=== PATIENT | male | born 1940 | race Caucasian/White ===

== ENCOUNTER 2017-11-15 15:14 | Outpatient (RCR) | payer MEDICARE, BC, SELFPAY ==
[2017-11-15 17:32] LABS: International Normalized Ratio 2.8; Prothrombin Time (Protime)PT. 28.2 SECONDS (11.7-14.9)
== END 2017-11-15 16:00 | disposition home or self-care (01) ==
LOC: MTLAB 15:14
PROVIDERS: Family Provider Family Medicine; PCP Family Medicine; Visit Provider Internal Medicine Cardiovascular Disease
DX: I48.0 Paroxysmal atrial fibrillation (principal)
CPT/HCPCS: 36415; 85610

== ENCOUNTER 2017-12-16 10:35 | Outpatient (RCR) | payer MEDICARE, BC, SELFPAY ==
[2017-12-16 12:18] LABS: International Normalized Ratio 2.3; Prothrombin Time (Protime)PT. 25.3 SECONDS (11.7-14.9)
== END 2017-12-16 11:00 | disposition home or self-care (01) ==
LOC: MTLAB 10:35
PROVIDERS: Family Provider Family Medicine; PCP Family Medicine; Visit Provider Internal Medicine Cardiovascular Disease
DX: I48.0 Paroxysmal atrial fibrillation (principal)
CPT/HCPCS: 36415; 85610

== ENCOUNTER 2018-01-10 12:49 | Outpatient (RCR) | payer MEDICARE, BC, SELFPAY ==
[2018-01-10 14:49] LABS: International Normalized Ratio 2.8; Prothrombin Time (Protime)PT. 29.9 SECONDS (11.7-14.9)
== END 2018-01-10 13:00 | disposition home or self-care (01) ==
LOC: MTLAB 12:49
PROVIDERS: Family Provider Family Medicine; PCP Family Medicine; Visit Provider Internal Medicine Cardiovascular Disease
DX: I48.0 Paroxysmal atrial fibrillation (principal)
CPT/HCPCS: 36415; 85610

== ENCOUNTER → 2018-01-23 11:33 | Outpatient (CLI) | payer MEDICARE, BC, SELFPAY ==
[2018-01-23 14:22] LABS: Amylase 48 U/L (25-115); Lipase 147 U/L (73-393)
== END ==
PROVIDERS: Family Provider Family Medicine; PCP Family Medicine; Visit Provider Internal Medicine Endocrinology, Diabetes & Metabolism
DX: R68.81 Early satiety (principal)
CPT/HCPCS: 36415; 82150; 83690

== ENCOUNTER 2018-02-08 10:01 | Outpatient (RCR) | payer MEDICARE, BC, SELFPAY ==
[2018-02-08 10:48] LABS: International Normalized Ratio 2.3; Prothrombin Time (Protime)PT. 25.6 SECONDS (11.7-14.9)
== END 2018-02-08 10:30 | disposition home or self-care (01) ==
LOC: MTLAB 10:01
PROVIDERS: Family Provider Family Medicine; PCP Family Medicine; Visit Provider Internal Medicine Cardiovascular Disease
DX: I48.0 Paroxysmal atrial fibrillation (principal)
CPT/HCPCS: 36415; 85610

== ENCOUNTER 2018-03-13 09:04 | Outpatient (RCR) | payer MEDICARE, BC, SELFPAY ==
[2018-03-13 10:58] LABS: International Normalized Ratio 2.5; Prothrombin Time (Protime)PT. 26.7 SECONDS (11.7-14.9)
== END 2018-03-13 15:58 | disposition home or self-care (01) ==
LOC: MTLAB 09:04
PROVIDERS: Family Provider Family Medicine; PCP Family Medicine; Visit Provider Internal Medicine Cardiovascular Disease
DX: I48.0 Paroxysmal atrial fibrillation (principal)
CPT/HCPCS: 36415; 85610

== ENCOUNTER 2018-04-16 07:02 | Emergency (ER) | payer MEDICARE, BC, SELFPAY ==
[2018-04-16 07:04] VITALS: BP 135/81; PULSE 70; RESP 16; TEMP 36.7; O2SAT 98; BMI 29.0
[2018-04-16 07:26] VITALS: BP 140/69; PULSE 71; RESP 14; O2SAT 97
[2018-04-16] MEDS: 0.9% Normal Saline 1,000 ML 1000 ML IV (07:29)
[2018-04-16 07:48] LABS: Absolute Lymphocyte Count 1.33 X10^3/ul (0.83-4.51); Absolute Neutrophil Count 5.1 X10^3/uL (2.0-7.7); Basophil# 0.06 X10^3/uL; Basophil% 0.8 % (0-1); Eosinophil# 0.22 X10^3/uL; Eosinophils% 2.8 % (0-5); Hematocrit 45.4 % (40-54); Lymphocyte # 1.33 X10^3/ul (4.0); Mean Corpuscular Hgb 31.5 pg (27.0-32.0); Mean Corpuscular Volume 95.4 fL (80-94); Mean Platelet Vol. 11.6 fl (6.2-12.0); Monocyte# 1.06 X10^3/uL; Monocyte% 13.6 % (0-10); Neutrophil # 5.13 X10^3/uL (2.7-7.7); Neutrophil % 65.7 % (47-70); Platelet Count 198 K/mm3 (150-450); RBC Distribution Width CV 13.6 % (11.6-14.6); RBC Distribution Width SD 47.2 fl (35.1-43.9); Red Blood Count 4.76 M/mm3 (4.6-6.2); White Blood Count 7.8 K/mm3 (4.4-11.0)
--- NOTE | 2018-04-16 07:51 | ED.DCSUM_ITS ---
- ER Visit Summary Date of Service: 04/16/18 Chief Complaint: Diarrhea and hypoglycemia History of Present Illness: The patient is a 77 M presenting with diarrhea. The patient has had 5 days worth of loose watery diarrhea. This all seemed to start after he drank oral contrast on Saturday for a surveillance CT scan. Patient reports that since then he has been having a multitude of episodes of loose watery diarrhea per day. Patient reports that every time he eats or drinks something and goes right through him. Patient denies that there is any sort of mucus or blood associated with this diarrhea. He does endorse that he has had some chills but no objective fevers. No abdominal pain or nausea or vomiting. Patient has not had any recent travel, antibiotic use, admissions to the hospital. Patient woke up today and was noted to have blood sugar in the 50s because he has been eating and he still been taking his insulin. This prompted him to come to the emergency department. Physical Examination: Vital signs within normal limits. Well-nourished male no acute distress. No conjunctival pallor or scleral icterus, mildly dry mucous membranes. Neck was supple. Heart was regular rate and rhythm 2 out of 6 systolic murmur. Lungs sounds are clear ICD is placed in the chest. Abdomen soft nontender nondistended normal bowel sounds no masses. Peripheral pulses 2 + and symmetric in the upper and lower extremities bilaterally. Skin was normal color with no rash. Test Results: Patient presented with a diarrheal illness over the course last 5 days. He was given 1 L normal saline and will emergency department. I did check labs on the patient, he does not have significant evidence of electrolyte abnormality or renal insufficiency. I did attempt to obtain a stool study on the patient's, but he was unable to provide this in the emergency department. At this point I believe the patient can safely be discharged, he does not really seem to have any sort of risk factors for infectious diarrhea and I do not believe that he requires antibiotic treatment for empiric treatment for C. difficile. He will follow-up with his primary care physician Disposition: Discharge Impression: 1. Enteritis This note was generated with [employer] dictation software. It may contain incorrect words, spelling, and punctuation that were not noted in review of the chart prior to signing ED Disposition - Plan for ED Patient: Disposition: Home or Assisted Living Chief Complaint: Hypoglycemia Diagnosis: Enteritis Instructions: ED Diabetes Hypoglycemia Insulin React, ED Diarhhea Viral Ch Prescriptions: Diphenoxylate/Atrop [Lomotil] 1 tab GT 4X/DAY PRN PRN #12 tab PRN Reason: Diarrhea Referrals: Angel Lang MD [Primary Care Provider] - 3-5 Days Additional Instructions: As long as you are having decreased oral intake, decrease your insulin to 20u in the AM/PM to prevent hypoglycemia. Check your sugars often throughout the day
[2018-04-16 07:55] LABS: POSITIVE COUNT NO; POSITIVE DIFFERENTIAL NO; POSITIVE MORPHOLOGY NO
[2018-04-16 08:01] LABS: Phosphorus 4.1 mg/dL (2.5-4.9)
[2018-04-16 08:05] LABS: ALB/GLOB Ratio 1.1 RATIO (0.9-2.4); AST(SGOT) 20 U/L (15-37); Alanine Aminotransfer ALT/SGPT 23 U/L (16-61); Albumin, Serum 3.9 g/dL (3.2-5.0); Alkaline Phosphatase 44 U/L (45-117); Anion Gap 10 (5-15); BUN 21 mg/dL (7-18); BUN/Creat Ratio 16.7 RATIO (10-20); Calcium,Total 8.7 mg/dL (8.5-10.1); Chloride 106 mmol/L (98-107); Creatinine, Serum 1.26 mg/dL (0.70-1.30); EST Glomerular Filtration Rate 59 mL/min (>60); Est Glom Filt Rate - Afr Amer 71 mL/min (>60); Estimated Creatinine Clearance 49.09 ml/min; Globulin 3.4 g/dL (2.2-4.2); Glucose 68 mg/dL (74-106); Magnesium 2.4 mg/dL (1.6-2.6); Potassium 3.4 mmol/L (3.5-5.1); Protein, Total 7.3 g/dL (6.4-8.2); Sodium Level 143 mmol/L (136-145)
[2018-04-16] MEDS: Diphenoxylate/Atrop 1 Tablet PO (08:09)
[2018-04-16 08:11] VITALS: BP 132/78; PULSE 70; RESP 12; O2SAT 95
[2018-04-16 08:52] VITALS: BP 135/72; PULSE 82; RESP 14; O2SAT 95
== END 2018-04-16 09:08 | disposition home or self-care (01) ==
PROVIDERS: Emergency Provider Emergency Medicine; Family Provider Family Medicine; PCP Family Medicine
DX: K52.9 Noninfective gastroenteritis and colitis, unspecified (principal); E11.649 Type 2 diabetes mellitus with hypoglycemia without coma; I25.2 Old myocardial infarction; I50.9 Heart failure, unspecified; N18.9 Chronic kidney disease, unspecified; E03.9 Hypothyroidism, unspecified; K21.9 Gastro-esophageal reflux disease without esophagitis; I48.91 Unspecified atrial fibrillation; Z95.810 Presence of automatic (implantable) cardiac defibrillator; Z79.82 Long term (current) use of aspirin; Z79.4 Long term (current) use of insulin; Z79.899 Other long term (current) drug therapy
CPT/HCPCS: 80053; 83735; 84100; 85025; 96360; 99283; J7030

== ENCOUNTER 2018-04-26 07:07 | Outpatient (RCR) | payer MEDICARE, BC, SELFPAY ==
[2018-04-18 13:01] LABS: International Normalized Ratio 4.9; Prothrombin Time (Protime)PT. 46.4 SECONDS (11.7-14.9)
[2018-04-21 09:18] LABS: Prothrombin Time (Protime)PT. 31.3 SECONDS (11.7-14.9)
[2018-04-26 08:37] LABS: International Normalized Ratio 3.2; Prothrombin Time (Protime)PT. 32.6 SECONDS (11.7-14.9)
[2018-04-26 08:53] LABS: AST(SGOT) 19 U/L (15-37); Alanine Aminotransfer ALT/SGPT 22 U/L (16-61); Albumin, Serum 3.6 g/dL (3.2-5.0); Alkaline Phosphatase 44 U/L (45-117); Bilirubin, Direct 0.15 mg/dL (0.00-0.30); Cholesterol 124 mg/dL (200); Globulin 3.8 g/dL (2.2-4.2); High Density Lipoprotein 27 mg/dL; Protein, Total 7.4 g/dL (6.4-8.2); Triglycerides 220 mg/dL; Very Low Density Lipoprotein 44 mg/dL (5-40)
== END 2018-04-26 09:00 | disposition home or self-care (01) ==
LOC: LAB 07:07
PROVIDERS: Family Provider Family Medicine; PCP Family Medicine; Visit Provider Internal Medicine Cardiovascular Disease
DX: I48.0 Paroxysmal atrial fibrillation (principal); I25.2 Old myocardial infarction; E78.5 Hyperlipidemia, unspecified
CPT/HCPCS: 36415; 80061; 80076; 85610

== ENCOUNTER 2018-05-29 09:44 | Outpatient (RCR) | payer MEDICARE, BC, SELFPAY ==
[2018-05-29 12:21] LABS: International Normalized Ratio 1.9; Prothrombin Time (Protime)PT. 22.1 SECONDS (11.7-14.9)
== END 2018-05-29 11:00 | disposition home or self-care (01) ==
LOC: MTLAB 09:44
PROVIDERS: Family Provider Family Medicine; PCP Family Medicine; Visit Provider Internal Medicine Cardiovascular Disease
DX: I48.0 Paroxysmal atrial fibrillation (principal); Z79.01 Long term (current) use of anticoagulants
CPT/HCPCS: 36415; 85610

== ENCOUNTER 2018-07-12 10:36 | Outpatient (RCR) | payer MEDICARE, BC, SELFPAY ==
[2018-06-20 12:45] LABS: International Normalized Ratio 1.9; Prothrombin Time (Protime)PT. 21.5 SECONDS (11.7-14.9)
[2018-07-12 11:33] LABS: International Normalized Ratio 1.7; Prothrombin Time (Protime)PT. 20.2 SECONDS (11.7-14.9)
== END 2018-07-12 12:00 | disposition home or self-care (01) ==
LOC: LAB 10:36
PROVIDERS: Family Provider Family Medicine; PCP Family Medicine; Visit Provider Internal Medicine Cardiovascular Disease
DX: I48.0 Paroxysmal atrial fibrillation (principal); Z79.01 Long term (current) use of anticoagulants
CPT/HCPCS: 36415; 85610

== ENCOUNTER 2018-08-09 10:39 | Outpatient (RCR) | payer MEDICARE, BC, SELFPAY ==
[2018-08-09 11:51] LABS: Prothrombin Time (Protime)PT. 22.4 SECONDS (11.7-14.9)
== END 2018-08-09 12:00 | disposition home or self-care (01) ==
LOC: LAB 10:39
PROVIDERS: Family Provider Family Medicine; PCP Family Medicine; Referring Provider Internal Medicine Cardiovascular Disease; Visit Provider Internal Medicine Cardiovascular Disease
DX: I48.0 Paroxysmal atrial fibrillation (principal); Z79.01 Long term (current) use of anticoagulants
CPT/HCPCS: 36415; 85610

== ENCOUNTER 2018-08-29 14:29 | Outpatient (RCR) | payer MEDICARE, BC, SELFPAY ==
[2018-08-29 17:00] LABS: International Normalized Ratio 1.8; Prothrombin Time (Protime)PT. 20.8 SECONDS (11.7-14.9)
== END 2018-08-29 15:00 | disposition home or self-care (01) ==
LOC: MTLAB 14:29
PROVIDERS: Family Provider Family Medicine; PCP Family Medicine; Referring Provider Internal Medicine Cardiovascular Disease; Visit Provider Internal Medicine Cardiovascular Disease
DX: I48.0 Paroxysmal atrial fibrillation (principal); Z79.01 Long term (current) use of anticoagulants
CPT/HCPCS: 36415; 85610

== ENCOUNTER 2018-09-20 11:32 | Outpatient (RCR) | payer MEDICARE, BC, SELFPAY ==
[2018-04-21 10:31] VITALS: BMI 29.1
[2018-09-20 12:03] LABS: International Normalized Ratio 1.9; Prothrombin Time (Protime)PT. 21.6 SECONDS (11.7-14.9)
== END 2018-09-20 12:00 | disposition home or self-care (01) ==
LOC: LAB 11:32
PROVIDERS: Family Provider Family Medicine; PCP Family Medicine; Referring Provider Internal Medicine Cardiovascular Disease; Visit Provider Internal Medicine Cardiovascular Disease
DX: I48.0 Paroxysmal atrial fibrillation (principal); Z79.01 Long term (current) use of anticoagulants
CPT/HCPCS: 36415; 85610

== ENCOUNTER → 2018-10-18 08:37 | Outpatient (CLI) | payer MEDICARE, BC, SELFPAY ==
[2018-04-21 10:31] VITALS: BMI 29.1
[2018-10-18 10:05] LABS: International Normalized Ratio 2.5; Prothrombin Time (Protime)PT. 26.9 SECONDS (11.7-14.9)
[2018-10-18 10:17] LABS: Hemoglobin A1c 9.3 % (4.2-6.3)
[2018-10-18 10:23] LABS: Anion Gap 9 (5-15); BUN 26 mg/dL (7-18); BUN/Creat Ratio 20.5 RATIO (10-20); Calcium,Total 9.1 mg/dL (8.5-10.1); Chloride 106 mmol/L (98-107); Creatinine, Serum 1.27 mg/dL (0.70-1.30); EST Glomerular Filtration Rate 58 mL/min (>60); Est Glom Filt Rate - Afr Amer 70 mL/min (>60); Glucose 211 mg/dL (74-106); Sodium Level 141 mmol/L (136-145); T4 Free Direct 1.23 ng/dL (0.76-1.46); Thyroid Stim Hormone (TSH) 2.38 uIU/mL (0.358-3.74)
== END ==
PROVIDERS: Family Provider Family Medicine; PCP Family Medicine; Referring Provider Internal Medicine Endocrinology, Diabetes & Metabolism; Visit Provider Internal Medicine Endocrinology, Diabetes & Metabolism
DX: E11.65 Type 2 diabetes mellitus with hyperglycemia (principal); E03.9 Hypothyroidism, unspecified
CPT/HCPCS: 36415; 80048; 83036; 84439; 84443; 85610

== ENCOUNTER 2018-10-18 08:42 | Outpatient (RCR) | payer MEDICARE, BC, SELFPAY ==
[2018-04-21 10:31] VITALS: BMI 29.1
== END 2018-10-18 10:00 | disposition home or self-care (01) ==
LOC: LAB 08:42
PROVIDERS: Family Provider Family Medicine; PCP Family Medicine; Referring Provider Internal Medicine Cardiovascular Disease; Visit Provider Internal Medicine Cardiovascular Disease
DX: I48.0 Paroxysmal atrial fibrillation (principal); Z79.01 Long term (current) use of anticoagulants

== ENCOUNTER → 2018-10-25 09:01 | Outpatient (CLI) | payer MEDICARE, BC, SELFPAY ==
[2018-04-21 10:31] VITALS: BMI 29.1
[2018-10-25 10:21] LABS: AST(SGOT) 17 U/L (15-37); Alanine Aminotransfer ALT/SGPT 22 U/L (16-61); Albumin, Serum 3.9 g/dL (3.2-5.0); Alkaline Phosphatase 48 U/L (45-117); Bilirubin, Direct 0.19 mg/dL (0.00-0.30); Cholesterol 137 mg/dL (200); Globulin 3.6 g/dL (2.2-4.2); High Density Lipoprotein 26 mg/dL; Protein, Total 7.5 g/dL (6.4-8.2); Triglycerides 266 mg/dL; Very Low Density Lipoprotein 53 mg/dL (5-40)
== END ==
PROVIDERS: Family Provider Family Medicine; PCP Family Medicine; Referring Provider Nurse Practitioner Family; Visit Provider Nurse Practitioner Family
DX: E78.5 Hyperlipidemia, unspecified (principal)
CPT/HCPCS: 36415; 80061; 80076

== ENCOUNTER 2018-11-19 12:37 | Outpatient (RCR) | payer MEDICARE, BC, SELFPAY ==
[2018-10-28 08:54] VITALS: BMI 29.3
[2018-11-19 13:33] LABS: International Normalized Ratio 2.8
== END 2018-12-11 13:00 | disposition home or self-care (01) ==
LOC: LAB 12:37
PROVIDERS: Family Provider Family Medicine; PCP Family Medicine; Referring Provider Internal Medicine Cardiovascular Disease; Visit Provider Internal Medicine Cardiovascular Disease
DX: I48.0 Paroxysmal atrial fibrillation (principal); Z79.01 Long term (current) use of anticoagulants
CPT/HCPCS: 36415; 85610

== ENCOUNTER → 2018-12-01 07:07 | Outpatient (CLI) | payer MEDICARE, BC, SELFPAY ==
[2018-10-28 08:54] VITALS: BMI 29.3
--- NOTE | 2018-12-01 15:35 | STRESSREP ---
Stress Test Report Pharmacologic myocardial perfusion stress test. 78-year-old man with a history of coronary artery disease, coronary artery bypass surgery, ICD placement, cardiomyopathy. Medications: Aspirin, digoxin, Lasix, Neurontin, carvedilol, lisinopril. Stress protocol: Resting EKG demonstrates atrial fibrillation with a rate of 72 bpm with a left bundle branch block pattern or pacing activity present. 0.4 mg of regadenoson was infused per usual protocol followed by rapid intravenous saline flush injection continuous EKG monitoring was performed. The maximum heart rate attained was 81 bpm which was 57% of maximum predicted heart rate the maximum workload was 1 metabolic equivalent. The patient maintained atrial fibrillation flutter throughout the recording. There were no ST or T wave changes noted other than the paced rhythm present. Myocardial perfusion protocol. 11.0 mCi of technetium 99 sestamibi was injected at rest. 0.4 mg of regadenoson was infused per usual protocol. At peak infusion 32.9 mCi of technetium 99m sestamibi was injected stress images were obtained stress and rest images were reconstructed and compared in the short axis vertical long horizontal long axis. Gated images were also obtained next Perfusion SPECT analysis: Review of the stress images demonstrated that it dated cardiac silhouette size. There is an extensive defect noted involving the anterior wall, apex and inferolateral wall. This is present on the stress and resting images to a similar extent suggesting extensive anterolateral apical and inferolateral previous infarct. The RV also appears to be prominent. No obvious ischemia is noted. Gated SPECT analysis: The gated ejection fraction is noted to be 19% with apical dyskinesis noted. Conclusion: Ischemic cardiomyopathy. Previous extensive anterior and apical and inferolateral infarct. No ischemia noted RV prominence noted
== END ==
PROVIDERS: Family Provider Family Medicine; PCP Family Medicine; Referring Provider Nurse Practitioner Family; Visit Provider Nurse Practitioner Family
DX: I25.10 Atherosclerotic heart disease of native coronary artery without angina pectoris (principal); I25.5 Ischemic cardiomyopathy; Z95.1 Presence of aortocoronary bypass graft; I48.0 Paroxysmal atrial fibrillation; E78.5 Hyperlipidemia, unspecified
CPT/HCPCS: 78452; 93017; A9500; A4216; J2785

== ENCOUNTER 2019-01-16 13:24 | Outpatient (RCR) | payer MEDICARE, BC, SELFPAY ==
[2018-10-28 08:54] VITALS: BMI 29.3
[2019-01-16 14:09] LABS: International Normalized Ratio 2.5; Prothrombin Time (Protime)PT. 27.2 SECONDS (11.7-14.9)
== END 2019-02-10 16:00 | disposition home or self-care (01) ==
LOC: LAB 13:24
PROVIDERS: Family Provider Family Medicine; PCP Family Medicine; Referring Provider Internal Medicine Cardiovascular Disease; Visit Provider Internal Medicine Cardiovascular Disease
DX: I48.0 Paroxysmal atrial fibrillation (principal); Z79.01 Long term (current) use of anticoagulants
CPT/HCPCS: 36415; 85610

== ENCOUNTER 2019-02-23 13:24 | Outpatient (RCR) | payer MEDICARE, BC, SELFPAY ==
[2018-10-28 08:54] VITALS: BMI 29.3
[2019-02-23 15:20] LABS: International Normalized Ratio 2.6; Prothrombin Time (Protime)PT. 27.6 SECONDS (11.7-14.9)
== END 2019-02-23 15:00 | disposition home or self-care (01) ==
LOC: LAB 13:24
PROVIDERS: Family Provider Family Medicine; PCP Family Medicine; Referring Provider Internal Medicine Cardiovascular Disease; Visit Provider Internal Medicine Cardiovascular Disease
DX: I48.0 Paroxysmal atrial fibrillation (principal); Z79.01 Long term (current) use of anticoagulants
CPT/HCPCS: 36415; 85610

== ENCOUNTER 2019-03-26 09:41 | Outpatient (RCR) | payer MEDICARE, BC, SELFPAY ==
[2018-10-28 08:54] VITALS: BMI 29.3
[2019-03-26 12:06] LABS: International Normalized Ratio 2.4
== END 2019-03-26 10:00 | disposition home or self-care (01) ==
LOC: MTLAB 09:41
PROVIDERS: Family Provider Family Medicine; PCP Family Medicine; Referring Provider Internal Medicine Cardiovascular Disease; Visit Provider Internal Medicine Cardiovascular Disease
DX: I48.0 Paroxysmal atrial fibrillation (principal); Z79.01 Long term (current) use of anticoagulants
CPT/HCPCS: 36415; 85610

== ENCOUNTER 2019-05-08 15:38 | Outpatient (RCR) | payer MEDICARE, BC, SELFPAY ==
[2018-10-28 08:54] VITALS: BMI 29.3
[2019-05-08 15:23] VITALS: BMI 29.3
[2019-05-08 16:45] LABS: International Normalized Ratio 2.7; Prothrombin Time (Protime)PT. 28.6 SECONDS (11.7-14.9)
== END 2019-05-08 16:00 | disposition home or self-care (01) ==
LOC: MTLAB 15:38
PROVIDERS: Family Provider Family Medicine; PCP Family Medicine; Referring Provider Internal Medicine Cardiovascular Disease; Visit Provider Internal Medicine Cardiovascular Disease
DX: I48.0 Paroxysmal atrial fibrillation (principal); Z79.01 Long term (current) use of anticoagulants
CPT/HCPCS: 36415; 85610

== ENCOUNTER → 2019-05-27 | Outpatient (CLI) | payer MEDICARE, BC, SELFPAY ==
[2019-05-08 15:23] VITALS: BMI 29.3
--- NOTE | 2019-05-27 07:44 | ECHOCS_ITS ---
Reason For Study: CHF Procedure This was a 2D Doppler, Color Flow transthoracic echocardiogram. The study was technically difficult. Contrast injection was performed. Exam performed in department. Left Ventricle Normal LV size. D shaped septum in systole and diastole. Moderate concentric left ventricular hypertrophy. Moderate segmental systolic dysfunction (see wall motion). The estimated ejection fraction is 35 %. There is evidence of diastolic dysfunction. Lateral-Basal: Hypokinetic. Mid- Anterior : Hypokinetic. Mid-Lateral : Hypokinetic. Mid-Posterior: Hypokinetic. Mid-Inferior: Hypokinetic. Mid-inferoseptal : Hypokinetic. Mid-anteroseptal : Akinetic. Anterior Peyton : Not visualized. Inferior Peyton : Akinetic. Lateral Peyton : Akinetic. Septal Peyton : Akinetic. Right Ventricle Normal RV size. ICD or pacer leads identified within the right ventricle. Normal systolic function. Atria The left atrium is severely enlarged. The right atrium is mildly enlarged. ICD or pacer leads identified within the right atrium. No doppler evidence for ASD. Mitral Valve There is mild mitral annular calcification. Normal mitral valve. Trivial mitral valve insufficiency. Tricuspid Valve Normal tricuspid valve. Mild to moderate (1-2+) tricuspid valve insufficiency. Right ventricular systolic pressure estimated to be 31 mmHg. Aortic Valve Trisinus/trileaflet aortic valve. Mild focal aortic valve calcification. Pulmonic Valve The pulmonic valve is not well visualized. Trivial pulmonic valve insufficiency. Great Vessels Normal sized aortic root. Pericardium/Pleural No pericardial effusion. Medication 22 gauge I.V. with prn adaptor inserted into right arm. Diluted definity 3ml given slow IV push to enhance endocardial definition. MMode/2D Measurements & Calculations LVIDd: 5.4 cm IVSd: 1.6 cm LVOT diam: 2.0 cm LVIDs: 4.3 cm LVPWd: 1.8 cm FS: 19.2 % LVOT area: 3.1 cm2 Ao root diam: 3.6 cm LAV(MOD-bp): 77.2 ml LA A4 area: 30.1 cm2 LA dimension: 5.0 cm LAV(MOD-bp) Indexed: 37.5 ml/m2 LAV(MOD-sp2): 50.4 ml LAV(MOD-sp4): 109.0 ml Doppler Measurements & Calculations MV E max angel: 95.5 cm/sec Lat Peak E' Angel: 6.2 cm/sec Med Peak E' Angel: 4.2 cm/sec E/E' lat: 15.4 E/E' med: 22.8 MV V2 max: 92.5 cm/sec MV P1/2t max angel: 90.5 cm/sec Ao V2 max: 114.3 cm/sec MV max P.4 mmHg MV P1/2t: 119.7 msec Ao max P.2 mmHg MV V2 mean: 52.8 cm/sec MV dec slope: 221.6 cm/sec2 DORA(V,D): 2.0 cm2 MV mean P.3 mmHg MVA(P1/2t): 1.8 cm2 MV V2 VTI: 25.7 cm LV V1 max: 73.3 cm/sec PA V2 max: 74.4 cm/sec TR max angel: 266.6 cm/sec LV V1 max P.2 mmHg TR max P.4 mmHg Interpretation Summary The study was technically difficult. Contrast injection was performed. Moderate segmental systolic dysfunction (see wall motion). The estimated ejection fraction is 35 %. D shaped septum in systole and diastole. Moderate concentric left ventricular hypertrophy. The left atrium is severely enlarged. The right atrium is mildly enlarged. There is mild mitral annular calcification. Trivial mitral valve insufficiency. Mild to moderate (1-2+) tricuspid valve insufficiency. Mild focal aortic valve calcification. Trivial pulmonic valve insufficiency. Right ventricular systolic pressure estimated to be 31 mmHg. There is evidence of diastolic dysfunction. ICD or pacer leads identified within the right atrium ICD or pacer leads identified within the right ventricle. Ordering Physician: Juan Villafuerte Referring Physician: Angel Lang Performed By: Ezra Monaco RCS
== END | disposition home or self-care (01) ==
LOC: CVS 07:42
PROVIDERS: Family Provider Family Medicine; PCP Family Medicine; Referring Provider Nurse Practitioner Family; Visit Provider Nurse Practitioner Family
DX: I25.10 Atherosclerotic heart disease of native coronary artery without angina pectoris (principal); I25.5 Ischemic cardiomyopathy; Z95.1 Presence of aortocoronary bypass graft; I48.0 Paroxysmal atrial fibrillation
CPT/HCPCS: 93306; Q9957; A4216; C8929

== ENCOUNTER 2019-07-17 10:54 | Outpatient (RCR) | payer MEDICARE, BC, SELFPAY | END 2019-07-17 18:00 | disposition home or self-care (01) | LOC: MTLAB 10:54 | PROVIDERS: Family Provider Family Medicine; PCP Family Medicine; Referring Provider Internal Medicine Cardiovascular Disease; Visit Provider Internal Medicine Cardiovascular Disease | DX: I48.0 Paroxysmal atrial fibrillation (principal); Z79.01 Long term (current) use of anticoagulants ==

== ENCOUNTER 2019-11-04 15:19 | Outpatient (RCR) | payer MEDICARE, BC, SELFPAY ==
[2019-11-04 14:22] VITALS: BMI 31.0
[2019-11-04 16:54] LABS: International Normalized Ratio 3.1; Prothrombin Time (Protime)PT. 31.9 SECONDS (11.7-14.9)
== END 2019-11-04 18:00 | disposition home or self-care (01) ==
LOC: MTLAB 15:19
PROVIDERS: Family Provider Family Medicine; PCP Family Medicine; Referring Provider Internal Medicine Cardiovascular Disease; Visit Provider Internal Medicine Cardiovascular Disease
DX: I48.0 Paroxysmal atrial fibrillation (principal); Z79.01 Long term (current) use of anticoagulants
CPT/HCPCS: 36415; 85610

== ENCOUNTER 2019-11-16 06:52 | Emergency (ER) | payer MEDICARE, BC, SELFPAY ==
[2019-11-16] VITALS (9 sets, daily range): BP systolic 100–140; BP diastolic 76–100; PULSE 20–145; RESP 18–92; TEMP 36.1; O2SAT 2–97; BMI 31.4
--- NOTE | 2019-11-16 06:58 | RAD_ITS ---
HISTORY: CHEST TIGHTNESS, SHORTNESS OF BREATH, DIAPHORETIC ALL YESTERDAY, SYMPTOMS BETTER TODAY EXAMINATION/TECHNIQUE: XR Chest 1 View: Portable COMPARISON: 04/16/2013 FINDINGS: Cardiac telemetry leads in place. Normal heart size. Bibasilar chronic appearing mild scarring. No acute infiltrate. No pleural effusion or overt vascular congestion. Atherosclerotic thoracic aorta. No pneumothorax. Left subclavian AICD pacemaker with electrode tips in region of the right atrium and right ventricle. Previous median sternotomy. RAD/Chest 1 View (Portable) IMPRESSION: 1. No definite acute disease or significant change. 2. Bibasilar mild scarring. 3. Postsurgical changes, as above. at 0808 Reported and signed by: Jhony Mcduffie MD Electronically Signed: Jhony Mcduffie, at 8:07 EST Tel , Service support ,
--- NOTE | 2019-11-16 06:58 | EKG12_ITS ---
Test Reason : CP Blood Pressure : / mmHG Vent. Rate : 113 BPM Atrial Rate : 141 BPM P-R Int : 128 ms QRS Dur : 178 ms QT Int : 324 ms P-R-T Axes : 000 270 101 degrees QTc Int : 444 ms Suspect arm lead reversal, interpretation assumes no reversal Wide complex tachycardia with subsequent ventricular-paced complexes Right bundle branch block pattern Abnormal ECG Confirmed by BLANCA DUNCAN, DELMA ([id number]), assignment editor DEEDEE KRAMER ([id number]) on 11/18/2019 8:55:50 AM Referred By: CANDACE Confirmed By:DELMA RIOS MD
--- NOTE | 2019-11-16 07:08 | ED.VIS.GEN ---
History of Present Illness Chief Complaint: Chest Pain Informant: Patient, Significant Other Onset: Today Context: Sudden Onset Timing: Continuous Quality: Tightness Location: Mid chest Current Severity: Mild Maximum Severity: Moderate Worsened by: Nothing Relieved by: Nothing Associated Symptoms: Dyspnea, dyspnea and nausea Narrative: Patient is an 79-year-old male with multiple medical problems who presents with chest tightness that started at 0615 while getting ready for work. He became diaphoretic and was noted to be short of breath. He did report nausea. He still has tightness in his chest. I was asked to see patient immediately since he appeared to be in V. tach. There is a history of atrial fibrillation. He is on Coumadin. He does have a pacemaker and defibrillator according to . He denies black or maroon stool. He denies cough. He denies orthopnea or PND. He denies fever or chills. His local wrapping clerk is Dr. Juan Manuel Wilkinson. - Past Medical History (1) Atrioventricular block Status: Acute (2) History of myocardial infarction Status: Acute (3) Premature ventricular contraction Status: Acute (4) Aortocoronary bypass status Status: Chronic Comment: CABG x3 - KO to diag, SVG to RCA and SVG to RCA 06/18/1996 (5) 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 Status: Chronic (6) CKD (chronic kidney disease), stage III Status: Chronic (7) Chronic systolic congestive heart failure Status: Chronic (8) HLD (hyperlipidemia) Status: Chronic (9) History of DVT (deep vein thrombosis) Status: Chronic Comment: Upper Extremity (10) History of atrial fibrillation Status: Chronic (11) Ischemic cardiomyopathy Status: Chronic (12) detention (current) use of anticoagulants Status: Chronic (13) Type 2 diabetes mellitus Status: Chronic Past Medical History - Allergies and Home Meds Allergies/Adverse Reactions: Allergies Iodine and Iodide Containing Produc Adverse Reaction (Severe, Verified 11/04/19 14:23) Diarrhea metformin Adverse Reaction (Verified 11/04/19 14:23) Upset Stomach niacin Adverse Reaction (Verified 11/04/19 14:23) Other Primary Care Physician: Angel Lang MD [Primary Care Provider] - Prior records reviewed: Yes Surgical History: coronary bypass surgery Lives: Spouse/ Significant Other Smoking Status: Never smoker Alcohol: None Drugs: None Review of Systems General: Denies: Chills, Fever, Malaise Eyes: Denies: Visual changes - bilaterally, Blurred Vision - bilaterally ENT: Denies: Rhinorrhea, Sore throat Cardiovascular: Reports: Chest pain, Palpitations. Denies: Heart racing Respiratory: Reports: Dyspnea, Dyspnea on exertion. Denies: Cough, Sputum, Orthopnea, Paroxysmal nocturnal dyspnea, -, - Gastrointestinal: Reports: Nausea. Denies: Abdominal pain, Vomiting, Diarrhea, Constipation, Melena, Hematochezia, -, - Genitourinary: Denies: Dysuria, Hematuria, Frequency Musculoskeletal: Denies: Myalgias, Arthralgias, Neck pain, Back pain, Swelling, Extremity Pain, -, - Skin: Denies: Rash, Wounds Neurological: Denies: Headache, Weakness, Numbness Endocrine: Denies: Polyuria, Polydipsia Hematologic: Denies: Easy bruising, Easy bleeding Physical Exam Vital Signs/Narrative: Vital Signs Temp Pulse Resp BP Pulse Ox 11/16/19 06:59 71 23 H 97 11/16/19 06:53 96.9 F L 141 H 24 H 140/86 H 96 Inital Vital Signs reviewed: Yes General: Well nourished, Well developed, Acute Distress Head: Normocephalic, Atraumatic Eyes: Perrl, EOMI. Negative for: Pale conjunctiva, Scleral icterus ENT: Moist mucous membranes, No rhinorrhea Neck: Supple, Nontender, No lymphadenopathy, No JVD Cardiovascular: Regular rhythm, Tachycardia Respiratory: Chest nontender, Rales - Else noted bilaterally at the bases only.. Negative for: No distress, CTA bilaterally Abdomen: Soft, Nontender, Nondistended, Normal bowel sounds, No masses Rectal: Deferred Back: Nontender, Normal Inspection. Negative for: CVA tenderness Extremities: Nontender, No edema, - - PT pulses palpable bilaterally. Negative for: Tenderness, Edema Skin: Diaphoresis, No Trauma, Pallor. Negative for: Cyanosis, Jaundice Neurological: Alert, Oriented x3, Cranial nerves II-XII grossly intact, Normal Strength, Normal Sensation Psychological: Normal affect Diagnostic/Tx/Re-eval Chest X-Ray - ED: 1 View, Read by ED Physician, Normal, Bony Structures, - - Fluid in the fissure. There is evidence of cephalization and interstitial fluffiness consistent with congestive heart failure. 11/16/19 06:58 Chest 1 View (Portable) [RAD] Stat Laboratory Results 11/16/19 11/16/19 11/16/19 07:00 07:00 07:00 WBC 5.6 RBC 4.87 Hgb 15.4 Hct 45.8 MCV 94.0 MCH 31.6 MCHC 33.6 RDW Std Deviation 45.2 H RDW Coeff of Gavino 13.2 Plt Count 187 MPV 12.1 H Immature Gran % (Auto) 0.500 Neut % (Auto) 52.4 Lymph % (Auto) 29.6 [place] % (Auto) 11.3 H Eos % (Auto) 4.6 Baso % (Auto) 1.6 H Absolute Neuts (auto) 3.0 Absolute Lymphs (auto) 1.67 Nucleated RBC % 0 PT 30.7 H INR 2.9 Sodium 139 Potassium 3.7 Chloride 107 Carbon Dioxide 25.0 Anion Gap 7 BUN 27 H Creatinine 1.39 H Estim Creat Clear Calc 38.97 Est GFR (MDRD) Af Amer 63 Est GFR (MDRD) Non-Af 52 L BUN/Creatinine Ratio 19.4 Glucose 267 H Calcium 9.4 Troponin I 0.032 - EKG Initial EKG Interpretation: - - Ventricular rate is 70. Patient is paced. There is no association between the P waves and QRS complex. Patient in AV dissociation. QRS duration 170 ms. QT duration 462 ms. Follow-up EKG Interpretation: - - Wide complex tachycardia rate of 144. This probably represents aberrancy. Waldo to the left. There is a right bundle branch configuration to the QRS complex. QRS duration 196 ms. QT duration 342 ms. - Medical Decision Making Patient's monitor revealed a wide-complex tachycardia with a ventricular rate of 1 40-1 50. With history of proximal atrial fibrillation this may represent Cassandra's phenomenon versus V. tach versus supraventricular tachycardia with aberrancy. Cardiac work-up was initiated. Chest x-ray was obtained to evaluate for congestive heart failure since he has rales at both bases. Basic metabolic panel to assess renal function since there is a history of stage III renal failure. CBC to evaluate H&H. PT/INR since he is on Coumadin. Patient will require admission. Will discuss case with cardiology once laboratory results are available for review and interpretation. Dr. Forei was contacted. After reviewing patient's history agrees with amiodarone bolus and drip. He recommended transferring to [facility] where his congestive heart failure/EP wrapping clerk practices. He was seen there this past . Reason for transfer, consideration for ablation Patient chest x-ray reveals congestive heart failure. He was administered 40 mL Lasix. According to records from [facility] his EF was 15% and after AICD was placed his EF improved to 35%. He was accepted. Arrangements are being made for critical care transport. Patient was reassessed at 0910. He is in a ventricular paced rhythm. He is hemodynamically stable. His chest discomfort has resolved. - Critical Care Time Critical care time (excluding procedures): 30-74 minutes - Critical care time 37 minutes this included time to discuss case with patient and family and reason for transfer., Discussing w/Patient &/or Family/Practical Nursing Faculty, Discussing w/Consultants - Patient with wrapping clerk, Dr. Yanick Lafleur and transfer line and wrapping clerk at [facility]., Arranging Admission or Transfer - To facilitate critical care transport to [facility]. 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
[2019-11-16] MEDS: Aspirin 81 MG TAB.CHEW 324 MG PO (07:18)
[2019-11-16 07:26] LABS: Absolute Lymphocyte Count 1.67 X10^3/uL (0.83-4.51); Basophil# 0.09 X10^3/uL; Basophil% 1.6 % (0-1); Eosinophil# 0.26 X10^3/uL; Eosinophils% 4.6 % (0-5); Hematocrit 45.8 % (40-54); Hemoglobin 15.4 g/dL (13.0-16.5); Lymphocyte # 1.67 X10^3/ul (4.0); Lymphocyte % 29.6 % (19-41); Mean Corp Hgb Conc 33.6 g/dL (32-36); Mean Corpuscular Hgb 31.6 pg (27.0-32.0); Mean Platelet Vol. 12.1 fl (6.2-12.0); Monocyte# 0.64 X10^3/uL; Monocyte% 11.3 % (0-10); NRBC Flagged by Analyzer 0 % (0-5); Neutrophil # 2.95 X10^3/uL (2.7-7.7); Neutrophil % 52.4 % (47-70); Platelet Count 187 K/mm3 (150-450); RBC Distribution Width CV 13.2 % (11.6-14.6); RBC Distribution Width SD 45.2 fl (35.1-43.9); Red Blood Count 4.87 M/mm3 (4.6-6.2); White Blood Count 5.6 K/mm3 (4.4-11.0)
[2019-11-16 07:38] LABS: Anion Gap 7 (5-15); BUN 27 mg/dL (7-18); BUN/Creat Ratio 19.4 RATIO (10-20); Calcium,Total 9.4 mg/dL (8.5-10.1); Chloride 107 mmol/L (98-107); Creatinine, Serum 1.39 mg/dL (0.70-1.30); EST Glomerular Filtration Rate 52 mL/min (>60); Est Glom Filt Rate - Afr Amer 63 mL/min (>60); Estimated Creatinine Clearance 38.97 ml/min; Glucose 267 mg/dL (74-106); Potassium 3.7 mmol/L (3.5-5.1); Sodium Level 139 mmol/L (136-145)
[2019-11-16 07:39] LABS: International Normalized Ratio 2.9; Prothrombin Time (Protime)PT. 30.7 SECONDS (11.7-14.9)
[2019-11-16] MEDS: Furosemide 40 MG/4 ML Vial IV (08:06)
--- NOTE | 2019-11-16 08:10 | CON.PCM_ITS ---
Reason for Consult Date of Consultation: 11/16/19 Reason for Consultation: Wide-complex tachycardia History of Present Illness: SATISH MCLAUGHLIN, is a 79 year old white male who presented to the emergency room today. According to his he had been having some palpitations starting yesterday as well as some pedal edema and also progressive shortness of breath. This morning it appeared that his symptoms were getting worse and so he presented to the emergency room. He was initially noted to be in a wide-complex tachycardia with a rate of approximately 140 bpm and then subsequently spontaneously converted briefly to an AV dissociated rhythm with a paced rhythm. While I was there he went back into the wide complex tachycardia. I had been called to see him in the emergency room. He denied any chest pain or orthopnea. He has not had any passing out spell and did not have his defibrillator discharged. He does have a history of coronary artery disease status post bypass surgery in 1995 with KO to diagonal and SVG to the right PDA sequencing to the right posterior lateral branch, paroxysmal atrial fibrillation, paroxysmal ventricular tachycardia, biventricular AICD, ischemic cardiomyopathy with an estimated ejection fraction of 35% with segmental wall motion abnormalities and a dilated left atrium. He also has chronic systolic congestive heart failure, YUSUF with CPAP therapy, and hyperlipidemia. He was recently evaluated at the [facility] with his heart failure fagot heater Dr. Tiffanie Head and medical therapy was recommended. At this particular time he appears to be fairly stable. Past Medical History Allergies/Adverse Reactions: Allergies Iodine and Iodide Containing Produc Adverse Reaction (Severe, Verified 11/04/19 14:23) Diarrhea metformin Adverse Reaction (Verified 11/04/19 14:23) Upset Stomach niacin Adverse Reaction (Verified 11/04/19 14:23) Other Home Medications: Ambulatory Orders Medication Instructions Recorded Allopurinol [Zyloprim] 100 mg PO DAILYCM 04/16/18 Aspirin [Aspirin, Baby] 81 mg PO DAILY@0800 04/16/18 Calcium Citrate 60 mg PO DAILY 04/16/18 Cholecalciferol (Vitamin D3) 1,000 unit PO DAILY 04/16/18 [Vitamin D3] Glimepiride [Amaryl] 4 mg PO DAILY 04/16/18 Levothyroxine [Synthroid] 75 mcg PO DAILY 04/16/18 Tizanidine HCl [Zanaflex] 4 mg PO DAILY 04/16/18 omega-3 fatty acids 1,000 mg 1,000 mg PO QDAY 04/17/18 capsule colestipol 1 gram tablet 1 g PO BID #180 tab 09/08/18 Handicap Placard #1 ea 11/05/18 warfarin 2 mg tablet 2 mg PO DAILY #90 tab 11/27/18 digoxin 125 mcg (0.125 mg) tablet 125 mcg PO DAILY #90 tab 12/15/18 rosuvastatin 20 mg tablet 20 mg PO DAILY #90 tab 12/30/18 fenofibrate micronized 200 mg 200 mg PO QDAY #90 cap 01/12/19 capsule folic acid 1 mg tablet 2 mg PO DAILY #180 tab 05/06/19 carvedilol 6.25 mg tablet 6.25 mg PO BID 05/08/19 lisinopril 2.5 mg tablet 2.5 mg PO DAILY #90 tab 09/22/19 furosemide 40 mg tablet 40 mg PO BID tab 11/04/19 gabapentin 100 mg capsule 100 mg PO TID 11/04/19 gabapentin 300 mg capsule 300 mg PO TID cap 11/04/19 insulin glargine 100 unit/mL (3 27 unit SC QHS ml 11/04/19 mL) subcutaneous pen lorazepam 0.5 mg tablet 0.5 mg PO Q6H PRN tab 11/13/19 meprobamate 400 mg tablet 400 mg PO TID 11/13/19 nitroglycerin 0.4 mg sublingual 0.4 mg SUBLINGUAL Q5-15M PRN 11/13/19 tablet tadalafil 2.5 mg tablet 2.5 mg PO DAILY PRN 11/13/19 Past Medical History (Chronic Problems): Chronic Problems (Last Reviewed 11/04/19 @ 14:28 by Winifred Landry) 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 (Chronic ~04/20/02) Paroxysmal atrial fibrillation (Chronic) Type 2 diabetes mellitus (Chronic) Paroxysmal ventricular tachycardia (Chronic) Aortocoronary bypass status (Chronic ~06/18/96) CABG x3 - KO to diag, SVG to RCA and SVG to RCA 06/18/1996 Chronic systolic congestive heart failure (Chronic) Ischemic cardiomyopathy (Chronic) Atherosclerotic heart disease of [place] coronary artery without angina pectoris (Chronic) CABG x3 - KO to diag, SVG to RCA and SVG to RCA 06/18/1996 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 Denies: Fever, Night Sweats HEENT: Denies: Vision Change Cardiovascular: Reports: Shortness of Breath, Peripheral Edema, Palpitations. Denies: Chest Discomfort, Orthopnea, PND, Lightheadedness, Dizziness, Near Syncope, Syncope Respiratory: Denies: Cough, Sputum Production, Hemoptysis Gastrointestinal: Denies: Hematemesis, Hematochezia, Melena Genitourinary: Denies: Dysuria, Hematuria Skin: Denies: Rash Neurological: Denies: Dizziness Psychiatric: Denies: Anxiety Endocrine: Denies: Heat Intolerance Hematologic/ Lymphatic: Denies: Anemia Subjectve: Elderly gentleman in mild distress. Objective: Vital Signs Temp Pulse Resp BP Pulse Ox 96.9 F L 72 18 123/87 H 93 11/16/19 06:53 11/16/19 08:00 11/16/19 08:00 11/16/19 08:00 11/16/19 08:00 Oxygen Flow Rate (L/min) 2 Oxygen Delivery Method Nasal Cannula Weight: 201 lb 0.985 oz Body Mass Index (BMI) 31.4 Intake and Output for Last 24 Hours 11/14/19 11/15/19 11/16/19 23:59 23:59 23:59 Intake Total 103 / 103 Balance 103 / 103 General: Awake, Alert, Oriented x 3 HEENT: PERRL, EOMI, Sclera Non Icteric Neck: Supple, Good ROM, No Lymph Node Enlargement Lungs: Clear to auscultation Cardiovascular: Regular Rhythm, Normal S1, Normal S2, No Murmurs, No Rubs, No Gallops Vascular: No Carotid Bruits, Normal Femoral Pulses, Normal Radial Pulses, Normal Dorsalis Pedal Pulse, Normal Posterior Tibial Pulses Abdomen: Bowel Sounds Present, Soft, Non Tender, No HSM, No Organomegaly Extremities: No Cyanosis, No Clubbing, Bilateral Edema +1 Musculoskeletal: No Erythema Skin: No Rashes Lymphatic: No Lymph Node Enlargement Neurological: No Focal Motor or Sensory Deficit Psych/Mental Status: Appropriate 11/16/19 07:00: WBC 5.6, RBC 4.87, Hgb 15.4, Hct 45.8, MCV 94.0, MCH 31.6, MCHC 33.6, Plt Count 187, MPV 12.1 H, Immature Gran % (Auto) 0.500, Neut % (Auto) 52.4, Lymph % (Auto) 29.6, Swain % (Auto) 11.3 H, Eos % (Auto) 4.6, Baso % (Auto) 1.6 H, Absolute Neuts (auto) 3.0, Nucleated RBC % 0 11/16/19 07:00: PT 30.7 H, INR 2.9 11/16/19 07:00: Sodium 139, Potassium 3.7, Chloride 107, Carbon Dioxide 25.0, Anion Gap 7, BUN 27 H, Creatinine 1.39 H, Est GFR (MDRD) Af Amer 63, Est GFR (MDRD) Non-Af 52 L, BUN/Creatinine Ratio 19.4, Glucose 267 H, Calcium 9.4, Troponin I 0.032 Rhythm: EKG: Initial EKG demonstrates wide complex tachycardia with a rate of approximately 140 bpm with retrograde P waves. Follow-up EKG demonstrates A-V dissociation with a paced ventricular rhythm ECHO: Stress Test: Cardiac Cath: PCI: CT Surgery: Holter monitor: EPS: PPM: CXR: Chest CT Scan: Assessment/Plan 1. Wide complex tachycardia * Patient presents with a wide complex tachycardia which is suggestive of supra ventricular tachycardia with aberrancy. Ventricular tachycardia cannot be completely excluded. Patient has a known left ventricular systolic dysfunction with an estimated ejection fraction of 35%. * My recommendation at this time will be to load the patient with intravenous amiodarone and then start an amiodarone drip. * Due to the fact that the patient has known left ventricular systolic dysfunction, evidence of scar, previous ICD, I would recommend that the patient be transferred back to [facility] for possible evaluation and therapy which may include jennifer ablation or scar ablation. Have discussed this with the patient and his family they understand and agreed to proceed. * 2. Left ventricular systolic dysfunction/congestive heart failure * Patient has evidence of left ventricular systolic dysfunction. He is on medication for the above as well as diuretics. He is also been seen by the heart failure physicians at the [facility]. * 3. Coronary artery disease status post coronary artery bypass surgery * He appears to be stable from the standpoint without any overt ischemia. At some point he may need noninvasive evaluation to exclude progression of disease. * 4. Paroxysmal atrial fibrillation * He does have evidence of paroxysmal atrial fibrillation. I would recommend anticoagulation at this particular time. * No other changes will be made. * 5. Status post ICD implantation * He is status post biventricular ICD implantation. He will have his ICD interrogated at his visit to [facility]. The above has been communicated to the patient, his , and the ER physicians. All in agreement. Thank you for allowing me to participate in the care of your patient. Please don't hesitate to call if any issues arise
--- NOTE | 2019-11-16 08:35 | EKG12_ITS ---
Test Reason : CP Blood Pressure : / mmHG Vent. Rate : 070 BPM Atrial Rate : 100 BPM P-R Int : 000 ms QRS Dur : 172 ms QT Int : 462 ms P-R-T Axes : 000 167 -44 degrees QTc Int : 498 ms Biventricular pacemaker detected Abnormal ECG Confirmed by BLANCA DUNCAN, DELMA ([id number]), metropolitan editor DEEDEE KRAMER ([id number]) on 11/18/2019 8:57:20 AM Referred By: SIXTO Confirmed By:DELMA RIOS MD
--- NOTE | 2019-11-16 08:36 | EKG12_ITS ---
Test Reason : CP Blood Pressure : / mmHG Vent. Rate : 141 BPM Atrial Rate : 141 BPM P-R Int : 112 ms QRS Dur : 196 ms QT Int : 342 ms P-R-T Axes : 000 -85 103 degrees QTc Int : 523 ms Wide complex tachycardia Left axis deviation Right bundle branch block pattern Abnormal ECG Confirmed by BLANCA DUNCAN, DELMA ([id number]), book editor DEEDEE KRAMER ([id number]) on 11/18/2019 8:56:56 AM Referred By: CANDACE Confirmed By:DELMA RIOS MD
== END 2019-11-16 11:01 | disposition short-term general hospital (02) ==
PROVIDERS: Emergency Provider Emergency Medicine; PCP Family Medicine
DX: I47.2 Ventricular tachycardia (principal); R07.89 Other chest pain; I48.0 Paroxysmal atrial fibrillation; E10.22 Type 1 diabetes mellitus with diabetic chronic kidney disease; I13.0 Hypertensive heart and chronic kidney disease with heart failure and stage 1 through stage 4 chronic kidney disease, or unspecified chronic kidney disease; N18.3 Chronic kidney disease, stage 3 (moderate); I50.22 Chronic systolic (congestive) heart failure; E10.65 Type 1 diabetes mellitus with hyperglycemia; I45.89 Other specified conduction disorders; E78.5 Hyperlipidemia, unspecified; I45.10 Unspecified right bundle-branch block; I25.2 Old myocardial infarction; I49.3 Ventricular premature depolarization; G47.33 Obstructive sleep apnea (adult) (pediatric); I25.5 Ischemic cardiomyopathy; I25.10 Atherosclerotic heart disease of native coronary artery without angina pectoris; Z86.718 Personal history of other venous thrombosis and embolism; Z95.810 Presence of automatic (implantable) cardiac defibrillator; Z79.4 Long term (current) use of insulin; Z79.01 Long term (current) use of anticoagulants; Z79.82 Long term (current) use of aspirin; Z79.84 Long term (current) use of oral hypoglycemic drugs; Z79.899 Other long term (current) drug therapy
CPT/HCPCS: 71045; 80048; 84484; 85025; 85610; 93005; 96365; 96366; 96375; 99285; A4216; J1940

== ENCOUNTER 2019-11-26 12:48 | Outpatient (RCR) | payer MEDICARE, BC, SELFPAY ==
[2019-11-16 06:53] VITALS: BMI 31.4
[2019-11-26 14:01] LABS: International Normalized Ratio 1.6; Prothrombin Time (Protime)PT. 18.7 SECONDS (11.7-14.9)
== END 2019-11-26 18:00 | disposition home or self-care (01) ==
LOC: LAB 12:48
PROVIDERS: Physician Assistant Medical; Family Provider Family Medicine; PCP Family Medicine; Referring Provider Internal Medicine Cardiovascular Disease; Visit Provider Internal Medicine Cardiovascular Disease
DX: I48.0 Paroxysmal atrial fibrillation (principal); Z79.01 Long term (current) use of anticoagulants
CPT/HCPCS: 36415; 85610

== ENCOUNTER 2019-11-27 19:09 | Inpatient (IN) | payer MEDICARE, BC, SELFPAY ==
[2019-11-16 06:53] VITALS: BMI 31.4
[2019-11-27] VITALS (17 sets, daily range): BP systolic 110–182; BP diastolic 61–79; PULSE 70–79; RESP 12–28; TEMP 36.8; O2SAT 88–98; BMI 32.7; BMI 31.3
--- NOTE | 2019-11-27 19:15 | EKG12_ITS ---
Test Reason : DYSRHYTHMIA Blood Pressure : / mmHG Vent. Rate : 071 BPM Atrial Rate : 065 BPM P-R Int : 156 ms QRS Dur : 168 ms QT Int : 490 ms P-R-T Axes : 000 170 -41 degrees QTc Int : 532 ms AV dual-paced rhythm Biventricular pacemaker detected Abnormal ECG Confirmed by JEZ HASSAN ([id number]), brands editor AURELIO MCCLURE ([id number]) on 11/30/2019 3:38:09 PM Referred By: PIOTR Confirmed By:JEZ HASSAN
--- NOTE | 2019-11-27 19:21 | ED.VIS.GEN ---
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 tach (recent admission at [facility])Proximal atrial fibrillation, diabetes mellitus type 2, pacemaker placement, CKD 3, history of DVT, hyperlipidemia, hypothyroid and ischemic cardiomyopathy presenting via EMS from home. Patient developed shortness of breath, cough and hemoptysis. Patient is around 2 PM his symptoms started. He has been coughing up blood. Patient is currently on Lovenox bridge as well as a Coumadin. Patient also developed pain at his left lower lungs. He states it hurts to take a deep breath. Patient is never had hemoptysis before. He does have reports of a fever at home. Patient denies any other complaints at this time. Further discussion with the patient's reveals that patient did have to be re-defibrillated for V. tach while at [facility]. He had 2 cardiac catheterizations performed and ultimately one stent placed in the RCA. It was felt that that was why he was in his abnormal rhythm. He was in the hospital for total of 9 days. Past Medical History - Allergies and Home Meds Allergies/Adverse Reactions: Allergies Iodine and Iodide Containing Produc Adverse Reaction (Severe, Verified 11/27/19 19:21) Diarrhea metformin Adverse Reaction (Verified 11/27/19 19:21) Upset Stomach niacin Adverse Reaction (Verified 11/27/19 19:21) Other Past Medical History: - - coronary artery disease, V. tach (recent admission at [facility])Proximal atrial fibrillation, diabetes mellitus type 2, pacemaker placement, CKD 3, history of DVT, hyperlipidemia, hypothyroid and ischemic cardiomyopathy Surgical History: coronary bypass surgery, - - Pacemaker Lives: Spouse/ Significant Other Smoking Status: Never smoker - Family History Maternal Family History: Family History (Last Reviewed 11/04/19 @ 14:28 by Winifred Landry) Father Myocardial infarction Family History: Reports: High Cholesterol, Heart Disease, Hypertension Paternal Family History: Family History (Last Reviewed 11/04/19 @ 14:28 by Winifred Landry) Father Myocardial infarction Family History: Reports: High Cholesterol, Heart Disease, Hypertension Review of Systems General: Reports: Fever, Malaise. Denies: Chills, Sweats Eyes: Denies: Visual changes - bilaterally, Diplopia ENT: Denies: Rhinorrhea, Sore throat Cardiovascular: Reports: Chest pain - left lateral . Denies: Palpitations Respiratory: Reports: Dyspnea, Cough, Sputum - bloody, Dyspnea on exertion Gastrointestinal: Denies: Abdominal pain, Nausea, Vomiting, Diarrhea, Melena, Hematochezia Genitourinary: Denies: Dysuria, Hematuria, Frequency Musculoskeletal: Denies: Back pain, Extremity Pain Skin: Denies: Rash, Wounds Neurological: Denies: Headache, Weakness, Numbness Physical Exam Vital Signs/Narrative: Vital Signs Temp Pulse Resp BP Pulse Ox 11/27/19 19:19 98.3 F 70 25 H 161/79 H 88 11/27/19 19:16 70 25 H 161/79 H 88 11/27/19 19:11 88 11/27/19 19:10 98.3 F 70 26 H 182/77 H 91 Inital Vital Signs reviewed: Yes General: Well nourished, Well developed, No Acute Distress Head: Normocephalic, Atraumatic Eyes: Perrl, EOMI. Negative for: Pale conjunctiva ENT: Moist mucous membranes, No rhinorrhea Neck: Supple, Nontender, No JVD Cardiovascular: Regular rate, Regular rhythm, No murmurs Respiratory: CTA bilaterally, Rhonchi, Diminished, Decreased Air Movement, Chest tenderness - left lower- mid axillary . Negative for: Retractions Abdomen: Soft, Nontender, Nondistended, Normal bowel sounds Back: Nontender, Normal Inspection Extremities: Nontender, No edema Skin: Normal color, No rash Neurological: Alert, Oriented x3, Cranial nerves II-XII grossly intact, Normal Strength, Normal Sensation Psychological: Normal affect, Normal Mood Diagnostic/Tx/Re-eval Chest X-Ray - ED: 1 View, Read by ED Physician, Read by Radiologist, Left Infiltrate Clinical Impression(s) from Imaging Studies Chest X-Ray 11/27/19 19:28 IMPRESSION: Left base atelectasis and/or small infiltrate with small effusion. Pulmonary vascular prominence with trace edema. Mild cardiomegaly. Electronically Signed: Angel Fuentes, at 19:44 EST Tel , Service support , Laboratory Data 11/27/19 11/27/19 11/27/19 19:15 19:15 19:15 WBC 11.5 H RBC 4.45 L Hgb 14.1 Hct 43.7 MCV 98.2 H MCH 31.7 MCHC 32.3 RDW Std Deviation 48.4 H RDW Coeff of Gavino 13.4 Plt Count 277 MPV 11.7 Immature Gran % (Auto) 1.800 H Neut % (Auto) 69.3 Lymph % (Auto) 13.3 L Grayson % (Auto) 12.5 H Eos % (Auto) 2.4 Baso % (Auto) 0.7 Absolute Neuts (auto) 8.0 H Absolute Lymphs (auto) 1.54 Nucleated RBC % 0 PT 21.2 H INR 1.8 APTT 49.1 H Sodium 139 Potassium 4.1 Chloride 106 Carbon Dioxide 26.0 Anion Gap 7 BUN 29 H Creatinine 1.63 H Estim Creat Clear Calc 33.23 Est GFR (MDRD) Af Amer 52 L Est GFR (MDRD) Non-Af 43 L BUN/Creatinine Ratio 17.8 Glucose 184 H Lactic Acid Calcium 9.1 Troponin I 0.192 H B-Natriuretic Peptide POC Glucose 11/27/19 11/27/19 11/27/19 19:15 19:15 19:19 WBC RBC Hgb Hct MCV MCH MCHC RDW Std Deviation RDW Coeff of Gavino Plt Count MPV Immature Gran % (Auto) Neut % (Auto) Lymph % (Auto) Grayson % (Auto) Eos % (Auto) Baso % (Auto) Absolute Neuts (auto) Absolute Lymphs (auto) Nucleated RBC % PT INR APTT Sodium Potassium Chloride Carbon Dioxide Anion Gap BUN Creatinine Estim Creat Clear Calc Est GFR (MDRD) Af Amer Est GFR (MDRD) Non-Af BUN/Creatinine Ratio Glucose Lactic Acid 2.9 H* Calcium Troponin I B-Natriuretic Peptide 287.4 H POC Glucose 190 H - Rhythm Strip Rhythm Strip: Sinus Rhythm Rate: 71 - paced Ectopy: None - EKG Initial EKG Interpretation: Paced, - - AV dual paced rhythm at a rate of 71 Biventricular pacemaker detected Compared to prior EKG on 04/16/2013, no changes - Medical Decision Making Patient is evaluated for hemoptysis and shortness of breath. Patient is hypoxic initially and placed on a Ventimask and then transitioned to BiPAP. Patient does have improvement of his respiratory effort with BiPAP. Chest x-ray does show a left lower lobe infiltrate. This is corresponding with his area of pain. Likely his pain is pleuritic. Patient has a mildly elevated troponin. He did have recent stent placement. This will be trended. He is not given aspirin secondary to the fact that he is already on Coumadin, Lovenox and having hemoptysis. Patient does not have large episode of hemoptysis while in the emergency room. He is protecting his airway and does not require intubation. Patient's lactate is elevated. I am not sure if this is from infection versus his hypoxia. Troponin might also be elevated from strain secondary to his hypoxia. Patient is admitted to the ICU for close monitoring and antibiotics. He started on azithromycin and Rocephin in the emergency room. He remained stable at time of disposition. ED Disposition - Plan for ED Patient: Disposition: Acute Care Hospital [facility] Diagnosis: FILIPE (acute kidney injury), Acute respiratory failure with hypoxia, Hemoptysis, Pneumonia
[2019-11-27 19:27] LABS: Absolute Lymphocyte Count 1.54 X10^3/uL (0.83-4.51); Basophil# 0.08 X10^3/uL; Basophil% 0.7 % (0-1); Eosinophil# 0.28 X10^3/uL; Eosinophils% 2.4 % (0-5); Hematocrit 43.7 % (40-54); Hemoglobin 14.1 g/dL (13.0-16.5); Lymphocyte # 1.54 X10^3/ul (4.0); Lymphocyte % 13.3 % (19-41); Mean Corp Hgb Conc 32.3 g/dL (32-36); Mean Corpuscular Hgb 31.7 pg (27.0-32.0); Mean Corpuscular Volume 98.2 fL (80-94); Mean Platelet Vol. 11.7 fl (6.2-12.0); Monocyte# 1.44 X10^3/uL; Monocyte% 12.5 % (0-10); NRBC Flagged by Analyzer 0 % (0-5); Neutrophil # 7.99 X10^3/uL (2.7-7.7); Neutrophil % 69.3 % (47-70); Platelet Count 277 K/mm3 (150-450); RBC Distribution Width CV 13.4 % (11.6-14.6); RBC Distribution Width SD 48.4 fl (35.1-43.9); Red Blood Count 4.45 M/mm3 (4.6-6.2); White Blood Count 11.5 K/mm3 (4.4-11.0)
--- NOTE | 2019-11-27 19:28 | RAD_ITS ---
STUDY: X-RAY CHEST REASON FOR EXAM: Male, 79 years old. Cough TECHNIQUE: Frontal view of the chest COMPARISON: X-ray chest November 16, 2019 FINDINGS: Left chest pacemaker is present. Pulmonary vascular prominence is present with trace edema. Left base atelectasis and/or small infiltrate is present. There is a small left pleural effusion. The right pleural space is clear. There is mild cardiomegaly. Post CABG changes are present. RAD/Chest 1 View (Portable) IMPRESSION: Left base atelectasis and/or small infiltrate with small effusion. Pulmonary vascular prominence with trace edema. Mild cardiomegaly. Electronically Signed: Angel Fuentes, at 19:44 EST Tel , Service support ,
[2019-11-27 19:37] LABS: International Normalized Ratio 1.8; Prothrombin Time (Protime)PT. 21.2 SECONDS (11.7-14.9)
[2019-11-27 19:38] LABS: Partial Thromboplast Time 49.1 Seconds (24.1-36.2)
[2019-11-27 19:43] LABS: Anion Gap 7 (5-15); BUN 29 mg/dL (7-18); BUN/Creat Ratio 17.8 RATIO (10-20); Calcium,Total 9.1 mg/dL (8.5-10.1); Chloride 106 mmol/L (98-107); Creatinine, Serum 1.63 mg/dL (0.70-1.30); EST Glomerular Filtration Rate 43 mL/min (>60); Est Glom Filt Rate - Afr Amer 52 mL/min (>60); Estimated Creatinine Clearance 33.23 ml/min; Glucose 184 mg/dL (74-106); Potassium 4.1 mmol/L (3.5-5.1); Sodium Level 139 mmol/L (136-145)
[2019-11-27] MEDS: Morphine 4 MG/ML Syringe IV (19:43)
[2019-11-27] MEDS: Ondansetron 4 MG/2 ML Vial IV (19:47)
[2019-11-27] MEDS: Albuterol 2.5 MG/3 ML VIAL.NEB. INHALATION (19:50)
[2019-11-27 19:56] LABS: Bedside Glucose 190 mg/dL (70-110)
[2019-11-27 19:56] LABS: BNP,B-Type NATRIURETIC PEPTIDE 287.4 pg/mL (0-100)
[2019-11-27 20:03] LABS: Lactic Acid 2.9 mmol/L (0.4-1.9)
--- NOTE | 2019-11-27 20:03 | PCM.HP.STD ---
Problem List (1) Severe sepsis Status: Acute (2) Acute respiratory failure with hypoxia Status: Acute (3) Pneumonia Status: Acute Qualifiers: Pneumonia type: due to unspecified organism Laterality: left Lung location: lower lobe of lung Qualified Code(s): J18.9 - Pneumonia, unspecified organism (4) Hemoptysis Status: Acute (5) FILIPE (acute kidney injury) Status: Acute (6) 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 Status: Chronic (7) Paroxysmal atrial fibrillation Status: Chronic (8) Type 2 diabetes mellitus Status: Chronic Qualifiers: Diabetes mellitus care home insulin use: with care home use Diabetes mellitus complication status: with other specified complication Qualified Code(s): E11.69 - Type 2 diabetes mellitus with other specified complication; 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 (9) Aortocoronary bypass status Status: Chronic Comment: CABG x3 - KO to diag, SVG to RCA and SVG to RCA 06/18/1996 (10) Chronic systolic congestive heart failure Status: Chronic (11) Ischemic cardiomyopathy Status: Chronic (12) CKD (chronic kidney disease), stage III Status: Chronic History of Present Illness Date of Admission: 11/27/19 Chief Complaint: Cough, dyspnea, chest pain, hemoptysis The patient is a 79 y/o M w/ PMHx: CAD s/p CABG x 3 and recent [facility] RCA PCI, HTN, HLD, Diabetes mellitus type II, CKD stage III, PAF, Hx remote DVT, Chronic systolic CHF/Ischemic cardiomyopathy s/p AICD/pacemaker placement, Gout, YUSUF with history of recent ED evaluation at [facility] with reportedly episodes of VT with transfer at that time to [facility] secondary to prior difficulties with his cardiac catheterization with reported catheterization at OSH w/ RCA occlusion with PCI, noted to have prolonged course, eventual discharged following 9 day admission stay with return to home 2 days prior to current presentation, now now re-presents to the [facility] ED on 11/27/19 with history of onset starting AM of day of presentation noted subjective fevers, chills, productive cough and dyspnea with onset scant hemoptysis prompting eventual ED presentation. Patient notes that he worsened at approximately 2 PM with onset of scant hemoptysis with discomfort in his chest, worse with inspiratory effort and with coughing. During his recent admission per lengthy discussion with family and patient, he was started on coumadin and therapeutic lovenox bridge for atrial fibrillation, confirmed no recurrent clot/thrombus in addition to ongoing asa, plavix w/ recent PCI. Work-up in the ED included T 98.3, heart 70, BP 161/79, respiratory rate 25, initially 88% on 3 L with transition to Ventimask and eventually BiPAP, 98% on 50%, CBC with WBC 11.5, hemoglobin 14.1, platelet 277 with left shift evident, coags with INR 1.8, PT 21.2, PTT 49.1, BMP with BUN/creatinine 29/1.63 with prior noted creatinine baseline 1.1-1.3, glucose 184, lactic acid 2.9, troponin 0.192 with most recent troponin on 11/16/2019 0.032, BNP 287.4, blood culture x2 pending per ED, influenza rapid unremarkable, chest x-ray with left base atelectasis and/or small infiltrate with small effusion with pulmonary vascular prominence with trace edema and cardiomegaly. In the ED patient ministered Zofran, morphine, initially ordered azithromycin and Rocephin. Past Medical History Past Medical History (Chronic Problems): Chronic Problems (Last Updated 11/26/19 @ 15:11 by Winifred Landry) Presence of stent of bypass graft (Chronic ~11/23/19) PCI/FEDERICO to the SVG to RCA @[facility] 11/23/19 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 (Chronic ~04/20/02) Paroxysmal atrial fibrillation (Chronic) Type 2 diabetes mellitus (Chronic) Paroxysmal ventricular tachycardia (Chronic) Aortocoronary bypass status (Chronic ~06/18/96) CABG x3 - KO to diag, SVG to RCA and SVG to RCA 06/18/1996 Chronic systolic congestive heart failure (Chronic) Ischemic cardiomyopathy (Chronic) Atherosclerotic heart disease of [place] coronary artery without angina pectoris (Chronic) CABG x3 - KO to diag, SVG to RCA and SVG to RCA 06/18/1996 nursing home (current) use of anticoagulants (Chronic) History of atrial fibrillation (Chronic) CKD (chronic kidney disease), stage III (Chronic) History of DVT (deep vein thrombosis) (Chronic) Upper Extremity HLD (hyperlipidemia) (Chronic) Medical History: Medical History (Last Updated 02/13/20 @ 15:11 by Winifred Landry) Ventricular tachycardia (Acute) I47.2 Non-ST elevation (NSTEMI) myocardial infarction (Acute) I21.4 Presence of stent of bypass graft (Chronic) Onset Date: ~11/23/19 Z95.828 PCI/FEDERICO to the SVG to RCA @[facility] 11/23/19 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 (Chronic) Onset Date: ~04/20/02 Z95.810 Paroxysmal atrial fibrillation (Chronic) I48.0 History of myocardial infarction (Acute) I25.2 Type 2 diabetes mellitus (Chronic) E11.9 Atrioventricular block (Acute) I44.30 Paroxysmal ventricular tachycardia (Chronic) I47.2 Premature ventricular contraction (Acute) I49.3 Chronic systolic congestive heart failure (Chronic) I50.22 Ischemic cardiomyopathy (Chronic) I25.5 Atherosclerotic heart disease of [place] coronary artery without angina pectoris (Chronic) I25.10 CABG x3 - KO to diag, SVG to RCA and SVG to RCA 06/18/1996 nursing home (current) use of anticoagulants (Chronic) Z79.01 History of atrial fibrillation (Chronic) Z86.79 CKD (chronic kidney disease), stage III (Chronic) History of DVT (deep vein thrombosis) (Chronic) Z86.718 Upper Extremity HLD (hyperlipidemia) (Chronic) E78.5 Hypothyroidism E03.9 YUSUF (obstructive sleep apnea) G47.33 Gout M10.9 Neuropathy G62.9 History of cardiac pacemaker Onset Date: ~07/14/01 Z95.0 Allergies Iodine and Iodide Containing Produc Adverse Reaction (Severe, Verified 11/27/19 19:21) Diarrhea metformin Adverse Reaction (Verified 11/27/19 19:21) Upset Stomach niacin Adverse Reaction (Verified 11/27/19 19:21) Other Home Medications: Ambulatory Orders Medication Instructions Recorded Allopurinol [Zyloprim] 100 mg PO DAILYCM 11/27/19 Amiodarone HCl [Cordarone] 400 mg PO DAILY 11/27/19 Aspirin 81 mg PO DAILY 11/27/19 Calcium Citrate 950 mg PO DAILY 11/27/19 Carvedilol [Coreg] 12.5 mg PO BID 11/27/19 Cholecalciferol (VIT D3) [Vitamin 1,000 unit PO DAILY 11/27/19 D] Clopidogrel Bisulfate [Clopidogrel] 75 mg PO DAILY 11/27/19 Colestipol Tablet [Colestid Tablet] 1 gm PO BID 11/27/19 Enoxaparin [Lovenox] 80 mg SUBCUT Q12@0600,1800 11/27/19 Fenofibrate,Micronized 200 mg PO DAILY 11/27/19 [Fenofibrate] Folic Acid 2 mg PO DAILY@0800 11/27/19 Furosemide [Lasix] 20 mg PO DINNER 11/27/19 Furosemide [Lasix] 40 mg PO BREAKFAST 11/27/19 Gabapentin [Neurontin] 400 mg PO TIDCM 11/27/19 Glimepiride [Amaryl] 4 mg PO DAILY 11/27/19 Insulin Glargine [Lantus (BKC)] 27 units SUBCUT BID 11/27/19 Insulin Lispro [Humalog] 0 unit SQ 11/27/19 Levothyroxine [Synthroid] 75 mcg PO DAILY 11/27/19 Lisinopril [Zestril] 2.5 mg PO DAILY 11/27/19 Nitroglycerin 0.4 mg SL Q5M MDD 3 11/27/19 Pantoprazole Sodium [Protonix] 40 mg PO DAILY 11/27/19 Rosuvastatin Calcium [Crestor] 20 mg PO DAILY 11/27/19 Tizanidine HCl [Zanaflex] 4 mg PO DAILY 11/27/19 Warfarin [Coumadin (PBKC)] 2 mg PO DAILY 11/27/19 Surgical History: Surgical History (Last Reviewed 11/04/19 @ 14:28 by Winifred Landry) Aortocoronary bypass status (Chronic) Onset Date: ~06/18/96 Z95.1 CABG x3 - KO to diag, SVG to RCA and SVG to RCA 06/18/1996 History of cardiac radiofrequency ablation Onset Date: ~06/12/07 Z98.890 for atrial flutter @ [facility] 06/12/07 History of implantable cardioverter-defibrillator (ICD) placement Onset Date: ~07/14/01 Z95.810 History of tonsillectomy Z90.89 Surgical History: coronary bypass surgery, - - Pacemaker/AICD, tonsillectomy, CABG x3, PCI. Psychiatric History: No pertinent psych hx Lives: Spouse/ Significant Other Smoking Status: Never smoker Tobacco Use: Non-smoker Alcohol: None Drugs: None - *Family History Maternal Family History: Family History (Last Reviewed 11/04/19 @ 14:28 by Winifred Landry) Father Myocardial infarction History Items: High Cholesterol, Heart Disease, Hypertension Paternal Family History: Family History (Last Reviewed 11/04/19 @ 14:28 by Winifred Landry) Father Myocardial infarction History Items: High Cholesterol, Heart Disease, Hypertension Review of Systems Constitutional: Reports: Anorexia, Chills, Fever, Malaise, Weakness, Fatigue. Denies: Weight Change HEENT: Denies: Head Aches, Sinus Congestion, Sinus Drainage Cardiovascular: Reports: Chest Pain. Denies: Chest Pressure, Chest Tightness, Light Headedness, Orthopnea, Palpitations, Syncope Respiratory: Reports: Cough, Hemoptysis, Pleuritic Pain, Shortness of Breath, Shortness of breath at rest, Shortness of breath upon exertion. Denies: Sputum production, Wheezing Gastrointestinal: Reports: Nausea. Denies: Abdominal Pain, Vomiting Genitourinary: Denies: Dysuria Musculoskeletal: Reports: Joint Pain. Denies: Joint Tenderness Skin: Denies: Rash, Wounds Neurological: Denies: Numbness, Tingling, Focal weakness Psychiatric: Denies: Anxiety, Depression, Homicidal Ideations, Suicidal Ideations Hematologic/ Lymphatic: Reports: Easy Bruising, Easy Bleeding VTE Information - Inpt Only VTE Present on Admission: No VTE Mechan Device Prophylaxis: SCD's VTE Pharm Prophylaxis ordered?: No Reason prophylaxis not ordered:: Medical Contraindication Patient Problems: Active and Suspected Problems (Last Updated 11/26/19 @ 15:11 by Winifred Landry) Severe sepsis (Acute) Acute respiratory failure with hypoxia (Acute) Pneumonia (Acute) Hemoptysis (Acute) FILIPE (acute kidney injury) (Acute) Ventricular tachycardia (Acute) Non-ST elevation (NSTEMI) myocardial infarction (Acute) Subjective: Seated upright in ED bed, fatigued appearance, ill-appearing, BiPAP in place. Objective: Physical Examination: General: awake, alert, oriented to self, place, recent events, remains cooperative, seated upright in ED bed, fatigued appearance, BiPAP in place, no current distress but previously had evidence of respiratory distress with increased respiratory rate, accessory muscle usage and hypoxia. Skin: normal color, turgor, no icterus, cyanosis. HEENT: AT/NC, EOMI, PERRLA, dry MM, no carotid bruits or JVD noted. Lungs: Diminished breath sounds bilaterally, greater bases, left greater than right, mildly rhonchorous, coarse, no obvious wheezing or significant rales, BiPAP currently in place, improved status since initial ED presentation with at that time increased respiratory rate, accessory muscle usage and hypoxia. Heart: Regular rate and rhythm; no gallop, rub audible. Abdomen: soft, obese, NTTP, ND, normal BS, no HSM. Extremities: no cyanosis, clubbing, or edema. Neurological: patient awake, alert, oriented as noted; cognitive function remains baseline intact although significantly fatigued and ill-appearing; pupils equally reactive to light and accomodation; cranial nerves II-XII grossly normal, moving all 4 extremities, no focal deficits, strength severely globally Sara secondary to acute presentation. Psychiatric: affect appears fatigued, ill, no acute evidence of depressive or anxiety feelings. - Physical Exam Vitals/I&O's: Vital Signs Temp Pulse Resp BP Pulse Ox 98.3 F 70 28 H 161/79 H 96 11/27/19 19:19 11/27/19 19:58 11/27/19 19:58 11/27/19 19:19 11/27/19 19:58 Oxygen Flow Rate (L/min) 8 Oxygen Delivery Method Bi-pap Weight: 208 lb 15.971 oz Body Mass Index (BMI) 32.7 Finger Stick Blood Glucose 190 Microbiology Past 72 Hours 11/27/19 19:27 Mucosa - Nose Influenza Types A,B Direct FA (AMELIE) - Final Laboratory Results 11/27/19 19:15: WBC 11.5 H, RBC 4.45 L, Hgb 14.1, Hct 43.7, MCV 98.2 H, MCH 31.7, MCHC 32.3, RDW Std Deviation 48.4 H, RDW Coeff of Gavino 13.4, Plt Count 277, MPV 11.7, Immature Gran % (Auto) 1.800 H, Neut % (Auto) 69.3, Lymph % (Auto) 13.3 L, [place] % (Auto) 12.5 H, Eos % (Auto) 2.4, Baso % (Auto) 0.7, Absolute Neuts (auto) 8.0 H, Absolute Lymphs (auto) 1.54, Nucleated RBC % 0 11/27/19 19:15: PT 21.2 H, INR 1.8, APTT 49.1 H 11/27/19 19:15: Sodium 139, Potassium 4.1, Chloride 106, Carbon Dioxide 26.0, Anion Gap 7, BUN 29 H, Creatinine 1.63 H, Estim Creat Clear Calc 33.23, Est GFR (MDRD) Af Amer 52 L, Est GFR (MDRD) Non-Af 43 L, BUN/Creatinine Ratio 17.8, Glucose 184 H, Calcium 9.1, Troponin I 0.192 H 11/27/19 19:15: Lactic Acid Pending 11/27/19 19:15: B-Natriuretic Peptide 287.4 H 11/27/19 19:19: POC Glucose 190 H Assessment/Plan All Active Problems (Last Updated 11/26/19 @ 15:11 by Winifred Landry) Severe sepsis (Acute) Acute respiratory failure with hypoxia (Acute) Pneumonia (Acute) Hemoptysis (Acute) FILIPE (acute kidney injury) (Acute) Ventricular tachycardia (Acute) Non-ST elevation (NSTEMI) myocardial infarction (Acute) History of myocardial infarction (Acute) Atrioventricular block (Acute) Premature ventricular contraction (Acute) The patient is a 79 y/o M w/ PMHx: CAD s/p CABG x 3 and recent [facility] RCA PCI, HTN, HLD, Diabetes mellitus type II, CKD stage III, PAF, Hx remote DVT, Chronic systolic CHF/Ischemic cardiomyopathy s/p AICD/pacemaker placement, Gout, YUSUF with history of recent ED evaluation at [facility] with reportedly episodes of VT with transfer at that time to [facility] secondary to prior difficulties with his cardiac catheterization with reported catheterization at [facility]SH w/ RCA occlusion with PCI, noted to have prolonged course, eventual discharged following 9 day admission stay with return to home 2 days prior to current presentation, now now re-presents to the [facility] ED on 11/27/19 with history of onset starting AM of day of presentation noted subjective fevers, chills, productive cough and dyspnea with onset scant hemoptysis prompting eventual ED presentation. 1. Acute Severe Sepsis secondary to Acute Hypoxic Respiratory Failure secondary to HCAP: Will admit to the ICU, continue BIPAP with transition once appropriate to NC oxygenation, continue ATC duonebs, PRN albuterol, maintain on IV Zosyn and Vancomycin given recent hospitalization with de-escalation as able, HOB, IS parameters w/ pending sputum cultures, respiratory viral panel and urine antigens. Trend CBC, BMP, lactic acid is elevated upon presentation. Bld cx x 2 obtained in the ED. Discussed case with ICU physician, Dr. Fisher and will gently hydrate with planned AM CTPA to further evaluation pulmonary status given hemoptysis associated. Holding patient Coumadin as well as therapeutic Lovenox but given recent stent continuing aspirin and Plavix therapy. If patient does clinically worsen per discussions with electronic semiconductor processor and family as well as patient would immediately intubate and consider transition to tertiary facility. 2. Indeterminate cardiac enzyme with history of recent PCI: Possibly demand. EKG in ED no acute evidence of ischemia, CXR w/ suspected PNA, cardiomegaly, initial trop 0.192, unclear what it was recently at OSH s/p PCI to RCA. Will place on a monitored bed to assure no acute myocardial infarction with serial cardiac enzymes and EKGs. ASA, NG, morphine. Recent [facility] admission, will need to ascertain if recent ECHO performed, but suspect likely. 3. Acute kidney injury on CKD stage III: Secondary to acute presentation, likely recent medications. Admission BUN/Cr 29/1.63, prior baseline creatinine noted to be 1.1-1.2. Will hydrate, hold nephrotoxic medications and repeat chemistry in AM. If no improvement would plan FeNa as well as renal ultrasound assessment. 4. CAD s/p Recent PCI RCA w/ associated VT: s/p CABG x 3 1995, s/p recent [facility] RCA PCI following ongoing VT, will continue asa, plavix given history recently of intervention, although cautiously given acute presentation as noted, continue statin, coreg, holding lisinopril temporarily given FILIPE. 5. PAF: Continue patient Coreg, amiodarone, continue asa, plavix given recent PCI, holding coumadin and therapeutic Lovenox given acute presentation as noted. 6. Diabetes mellitus type II with neuropathy: Hold oral home regimen, continue home insulin regimen, ADA diet, accu checks w/ ISS, continue home gabapentin regimen. 7. Chronic systolic CHF/ischemic cardiomyopathy: We will continue patient home aspirin, Plavix given recent PCI, holding Coumadin and therapeutic Lovenox as noted, continue patient Coreg and statin therapy, temporarily holding lisinopril and Lasix given mild FILIPE presentation, resume once appropriate. 8. Hypertension: Continue home regimen including Coreg, holding patient lisinopril as well as Lasix regimen given mild FILIPE, resume once appropriate, PRN hydralazine. 9. Hyperlipidemia: Continue home statin regimen. 10. Hypothyroidism: Continue home synthroid regimen. 11. GERD: Continue home PPI. 12. DVT prophylaxis: SCDs, holding patient Coumadin and therapeutic Lovenox given acute presentation as noted #1, admission INR 1.8. 13. CODE status: Patient's family present including his spouse. He does not have healthcare power of personal injury attorney nor living will set up. Discussed with family and patient's as well as his son would be the primary decision makers if an event did fall him where he cannot make decisions. Discussed CODE status at length including difference between FULL code, DNR-CCA and DNR-CC status. Following discussions about the differences in these status, requested full CODE STATUS. Advanced Care Planning Face to Face Time: 16 minutes. Code Visit Inpatient E&M: 39230 Init Hosp L3 Procedures: 68657 Advncd Care Plan 30 Min
--- NOTE | 2019-11-27 20:05 | ED.RN ---
Dr Jones notified of critical lactic of 2.9
[2019-11-27 21:25] LABS: Allen Test POS; Base Excess -1 mmol/L (-2 to +2); Bicarbonate 23.2 mmol/L (22-26); Blood Gas Specimen Type ART; EPAP 8; FI02 0; IPAP 12; PO2 71 mmHG (75-100); RR 12; SITE L Radial; SO2 95 % (95-99); Time Given 2120; Total Carbon Dioxide 24 mmol/L; pCO2 33.2 mmHg (35-45); pH 7.45 (7.35-7.45)
--- NOTE | 2019-11-27 21:40 | CPS ---
sample obtained times 1 in left radial. no adverse reaction noted. results of test sent to icu md and copy given to nursing staff.
--- NOTE | 2019-11-27 21:41 | CPS ---
post assessment patient weaned to .35%
[2019-11-27] MEDS: 0.9% Normal Saline 1,000 ML 100 ML IV (21:49)
[2019-11-27 21:51] LABS: Magnesium 2.4 mg/dL (1.6-2.6)
[2019-11-27] MEDS: Pantoprazole Sodium 20 MG Tablet PO (22:18)
[2019-11-27] MEDS: Carvedilol 12.5 MG Tablet PO (22:18)
[2019-11-27] MEDS: Atorvastatin Calcium 40 MG Tablet PO (22:34)
--- NOTE | 2019-11-27 22:35 | CPS ---
RT ATTEMPTED SPUTUM COLLECTION VIA COLLECTION CUP WITHOUT SUCCESS. RT DEEP SUCTIONED VIA NOSE TIMES 2 WITHOUT SUCCESS. PATIENTS NURSE AT BEDSIDE AND AWARE SAMPLE UNABLE TO BE OBTAINED. 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
[2019-11-27 22:45] LABS: Bedside Glucose 162 mg/dL (70-110)
[2019-11-27 23:22] LABS: Reflex Lactate? Y
[2019-11-28] VITALS (24 sets, daily range): BP systolic 90–124; BP diastolic 50–78; PULSE 70–94; RESP 12–22; TEMP 35.8–36.9; O2SAT 87–100
[2019-11-28 00:30] LABS: Lactic Acid 1.2 mmol/L (0.4-1.9)
--- NOTE | 2019-11-28 01:03 | PCM.RX.CS ---
Consult Pharmacy has been consulted to manage selected antiobiotic: Vancomycin Type of Consult: New start Suspected Infection: Pneumonia Labs: Sodium 139 mmol/L (136-145) 11/27/19 19:15 Potassium 4.1 mmol/L (3.5-5.1) 11/27/19 19:15 Chloride 106 mmol/L (98-107) 11/27/19 19:15 Carbon Dioxide 26.0 mmol/L (21.0-32.0) 11/27/19 19:15 Anion Gap 7 (5-15) 11/27/19 19:15 BUN 29 mg/dL (7-18) H 11/27/19 19:15 Creatinine 1.63 mg/dL (0.70-1.30) H 11/27/19 19:15 Est GFR (MDRD) Af Amer 52 mL/min (>60) L 11/27/19 19:15 Est GFR (MDRD) Non-Af 43 mL/min (>60) L 11/27/19 19:15 BUN/Creatinine Ratio 17.8 RATIO (10-20) 11/27/19 19:15 Glucose 184 mg/dL (74-106) H 11/27/19 19:15 Microbiology: Microbiology 11/27/19 19:27 Mucosa - Nose Influenza Types A,B Direct FA (AMELIE) - Final Weight used for dosin.7 kg Estimated Creatinine Clearance: 38.18 Goal Trough: 15-20 mcg/mL Pharmacy Plan for Drug Dosing: Pharmacy Service will continue to monitor and adjust dosing as required. Medications Vancomycin HCl 1,250 mg/ (Sodium Chloride) 275 mls @ 167 mls/hr IV Q24H YOMAIRA Discontinued Medications Vancomycin HCl 1,250 mg/ (Sodium Chloride) 275 mls @ 167 mls/hr IV X1 ONE Stop: 11/27/19 23:38 Last Admin: 11/27/19 23:58 Dose: Infused Documented by: Follow-Up Labs: Trough Vancomycin Labs to be done on [date and time ordered]: 11/29 @ 5689
[2019-11-28 04:43] LABS: Absolute Lymphocyte Count 0.55 X10^3/uL (0.83-4.51); Absolute Neutrophil Count 9.9 X10^3/uL (2.0-7.7); Basophil# 0.03 X10^3/uL; Basophil% 0.3 % (0-1); Eosinophil# 0.03 X10^3/uL; Eosinophils% 0.3 % (0-5); Hematocrit 34.8 % (40-54); Hemoglobin 11.3 g/dL (13.0-16.5); Lymphocyte # 0.55 X10^3/ul (4.0); Lymphocyte % 4.9 % (19-41); Mean Corp Hgb Conc 32.5 g/dL (32-36); Mean Corpuscular Hgb 31.7 pg (27.0-32.0); Mean Corpuscular Volume 97.8 fL (80-94); Mean Platelet Vol. 11.6 fl (6.2-12.0); Monocyte# 0.61 X10^3/uL; Monocyte% 5.4 % (0-10); NRBC Flagged by Analyzer 0 % (0-5); Neutrophil # 9.89 X10^3/uL (2.7-7.7); Neutrophil % 87.9 % (47-70); POSITIVE DIFFERENTIAL YES; Platelet Count 193 K/mm3 (150-450); RBC Distribution Width CV 13.4 % (11.6-14.6); RBC Distribution Width SD 47.9 fl (35.1-43.9); Red Blood Count 3.56 M/mm3 (4.6-6.2); White Blood Count 11.2 K/mm3 (4.4-11.0)
[2019-11-28 04:44] LABS: Differential Indicated SCAN CRITERIA MET
[2019-11-28 04:53] LABS: International Normalized Ratio 1.9; Prothrombin Time (Protime)PT. 22.1 SECONDS (11.7-14.9)
[2019-11-28 04:57] LABS: Anion Gap 5 (5-15); BUN 27 mg/dL (7-18); BUN/Creat Ratio 23.7 RATIO (10-20); Calcium,Total 8.3 mg/dL (8.5-10.1); Chloride 109 mmol/L (98-107); Creatinine, Serum 1.14 mg/dL (0.70-1.30); EST Glomerular Filtration Rate 66 mL/min (>60); Est Glom Filt Rate - Afr Amer 79 mL/min (>60); Estimated Creatinine Clearance 47.51 ml/min; Glucose 147 mg/dL (74-106); Potassium 4.4 mmol/L (3.5-5.1); Sodium Level 139 mmol/L (136-145)
[2019-11-28] MEDS: Levothyroxine 75 MCG Tablet PO (05:36)
--- NOTE | 2019-11-28 06:21 | PCM.CON.CC ---
Reason for Consult Date of Consultation: 11/28/19 Reason for Consultation: Respiratory failure, healthcare associated pneumonia, hemoptysis History of Present Illness: The patient is an 79-year-old male, with a history as outlined below, who presented to the emergency department on November 27 with complaints of shortness of breath, cough and pleuritic type chest pain. The patient reported that the symptoms have been present for approximately 24 to 48 hours prior to hospital presentation. He did report that his cough was intermittently productive of sputum, which at times, was streaked with blood. The patient does have a history of coronary artery disease status post bypass surgery 1995. He recently presented to the hospital the beginning of November with wide-complex tachycardia, for which he was transferred to [facility]. There, the patient underwent a heart catheterization with reported PCI to his RCA. The patient was subsequently discharged home, where he has resided for the last 3 days prior to presenting to our emergency department. In addition to the aforementioned, the patient does have a history of obstructive sleep apnea, for which he utilizes nocturnal CPAP therapy. The patient is currently systemically anticoagulated after having been identified as having paroxysmal atrial fibrillation during his most recent outside hospital admission. On presentation to the emergency department, the patient was noted to be afebrile and hypertensive with a blood pressure documented to be 182/77 mmHg. The patient was tachypneic and saturating 91% on room air. Initial laboratory evaluation revealed a mildly elevated white blood cell count. Chemistry profile was notable for acute kidney injury with a creatinine of 1.63. Lactate was elevated to 2.9. Troponin was increased to 0.192 with a mildly elevated BNP to 287. Chest x-ray revealed some central pulmonary vascular congestion with an obscured left hemidiaphragm. The patient was eventually transitioned to BiPAP therapy in the emergency department. He was placed on broad-spectrum antimicrobials and subsequently admitted to the medical intensive care unit for further management. Overnight, the patient was weaned from BiPAP and placed on supplemental oxygen via nasal cannula. The patient does have an iodine allergy and orders were placed for him to undergo a CTA chest. The patient has not been able to expectorate any sputum. He denies any ongoing hemoptysis this morning. He does not regularly utilize supplemental oxygen at his baseline. He denies any chest pain this morning. Past Medical History Past Medical History (Chronic Problems): Chronic Problems (Last Updated 11/26/19 @ 15:11 by Winifred Landry) Presence of stent of bypass graft (Chronic ~11/23/19) PCI/FDEERICO to the SVG to RCA @[facility] 11/23/19 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 (Chronic ~04/20/02) Paroxysmal atrial fibrillation (Chronic) Type 2 diabetes mellitus (Chronic) Paroxysmal ventricular tachycardia (Chronic) Aortocoronary bypass status (Chronic ~06/18/96) CABG x3 - KO to diag, SVG to RCA and SVG to RCA 06/18/1996 Chronic systolic congestive heart failure (Chronic) Ischemic cardiomyopathy (Chronic) Atherosclerotic heart disease of [place] coronary artery without angina pectoris (Chronic) CABG x3 - KO to diag, SVG to RCA and SVG to RCA 06/18/1996 half-way (current) use of anticoagulants (Chronic) History of atrial fibrillation (Chronic) CKD (chronic kidney disease), stage III (Chronic) History of DVT (deep vein thrombosis) (Chronic) Upper Extremity HLD (hyperlipidemia) (Chronic) Medical History: Medical History (Last Updated 11/26/19 @ 15:11 by Winifred Landry) Ventricular tachycardia (Acute) I47.2 Non-ST elevation (NSTEMI) myocardial infarction (Acute) I21.4 Presence of stent of bypass graft (Chronic) Onset Date: ~11/23/19 Z95.828 PCI/FEDERICO to the SVG to RCA @[facility] 11/23/19 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 (Chronic) Onset Date: ~04/20/02 Z95.810 Paroxysmal atrial fibrillation (Chronic) I48.0 History of myocardial infarction (Acute) I25.2 Type 2 diabetes mellitus (Chronic) E11.9 Atrioventricular block (Acute) I44.30 Paroxysmal ventricular tachycardia (Chronic) I47.2 Premature ventricular contraction (Acute) I49.3 Chronic systolic congestive heart failure (Chronic) I50.22 Ischemic cardiomyopathy (Chronic) I25.5 Atherosclerotic heart disease of [place] coronary artery without angina pectoris (Chronic) I25.10 CABG x3 - KO to diag, SVG to RCA and SVG to RCA 06/18/1996 half-way (current) use of anticoagulants (Chronic) Z79.01 History of atrial fibrillation (Chronic) Z86.79 CKD (chronic kidney disease), stage III (Chronic) History of DVT (deep vein thrombosis) (Chronic) Z86.718 Upper Extremity HLD (hyperlipidemia) (Chronic) E78.5 Hypothyroidism E03.9 YUSUF (obstructive sleep apnea) G47.33 Gout M10.9 Neuropathy G62.9 History of cardiac pacemaker Onset Date: ~07/14/01 Z95.0 Allergies Iodine and Iodide Containing Produc Adverse Reaction (Severe, Verified 11/27/19 19:21) Diarrhea metformin Adverse Reaction (Verified 11/27/19 19:21) Upset Stomach niacin Adverse Reaction (Verified 11/27/19 19:21) Other Home Medications: Ambulatory Orders Medication Instructions Recorded Allopurinol [Zyloprim] 100 mg PO DAILYCM 11/27/19 Amiodarone HCl [Cordarone] 400 mg PO DAILY 11/27/19 Aspirin 81 mg PO DAILY 11/27/19 Calcium Citrate 950 mg PO DAILY 11/27/19 Carvedilol [Coreg] 12.5 mg PO BID 11/27/19 Cholecalciferol (VIT D3) [Vitamin 1,000 unit PO DAILY 11/27/19 D] Clopidogrel Bisulfate [Clopidogrel] 75 mg PO DAILY 11/27/19 Colestipol Tablet [Colestid Tablet] 1 gm PO BID 11/27/19 Enoxaparin [Lovenox] 80 mg SUBCUT Q12@0600,1800 11/27/19 Fenofibrate,Micronized 200 mg PO DAILY 11/27/19 [Fenofibrate] Folic Acid 2 mg PO DAILY@0800 11/27/19 Furosemide [Lasix] 20 mg PO DINNER 11/27/19 Furosemide [Lasix] 40 mg PO BREAKFAST 11/27/19 Gabapentin [Neurontin] 400 mg PO TIDCM 11/27/19 Glimepiride [Amaryl] 4 mg PO DAILY 11/27/19 Insulin Glargine [Lantus (BKC)] 27 units SUBCUT BID 11/27/19 Insulin Lispro [Humalog] 0 unit SQ 11/27/19 Levothyroxine [Synthroid] 75 mcg PO DAILY 11/27/19 Lisinopril [Zestril] 2.5 mg PO DAILY 11/27/19 Nitroglycerin 0.4 mg SL Q5M MDD 3 11/27/19 Pantoprazole Sodium [Protonix] 40 mg PO DAILY 11/27/19 Rosuvastatin Calcium [Crestor] 20 mg PO DAILY 11/27/19 Tizanidine HCl [Zanaflex] 4 mg PO DAILY 11/27/19 Warfarin [Coumadin (PBKC)] 2 mg PO DAILY 11/27/19 Surgical History: Surgical History (Last Reviewed 11/04/19 @ 14:28 by Winifred Landry) Aortocoronary bypass status (Chronic) Onset Date: ~06/18/96 Z95.1 CABG x3 - KO to diag, SVG to RCA and SVG to RCA 06/18/1996 History of cardiac radiofrequency ablation Onset Date: ~06/12/07 Z98.890 for atrial flutter @ [facility] 06/12/07 History of implantable cardioverter-defibrillator (ICD) placement Onset Date: ~07/14/01 Z95.810 History of tonsillectomy Z90.89 Surgical History: coronary bypass surgery, - - Pacemaker/AICD, tonsillectomy, CABG x3, PCI. Psychiatric History: No pertinent psych hx Lives: Spouse/ Significant Other Smoking Status: Never smoker Tobacco Use: Non-smoker Alcohol: None Drugs: None - *Family History Maternal Family History: Family History (Last Reviewed 11/04/19 @ 14:28 by Winifred Landry) Father Myocardial infarction History Items: High Cholesterol, Heart Disease, Hypertension Paternal Family History: Family History (Last Reviewed 11/04/19 @ 14:28 by Winifred Landry) Father Myocardial infarction History Items: High Cholesterol, Heart Disease, Hypertension Review of Systems Constitutional: Reports: Fatigue. Denies: Chills, Fever Eyes: Denies: Blurred vision, Double vision HEENT: Denies: Head Aches, Sinus Congestion, Sinus Drainage Cardiovascular: Denies: Chest Pain, Palpitations Respiratory: Reports: Cough, Hemoptysis, Shortness of Breath, Sputum production Gastrointestinal: Denies: Abdominal Pain, Nausea, Vomiting Genitourinary: Denies: Dysuria Musculoskeletal: Denies: Joint Pain, Joint Tenderness Skin: Denies: Rash, Wounds Neurological: Denies: Numbness, Tingling, Focal weakness Psychiatric: Denies: Anxiety, Depression, Homicidal Ideations, Suicidal Ideations Hematologic/ Lymphatic: Reports: Anemia, Hx of blood clot Patient Problems: Active and Suspected Problems (Last Updated 11/26/19 @ 15:11 by Winifred Landry) Acute respiratory failure with hypoxia (Acute) Pneumonia (Acute) Hemoptysis (Acute) Ventricular tachycardia (Acute) Non-ST elevation (NSTEMI) myocardial infarction (Acute) Objective: The patient's most recent lab work, culture data and imaging studies have all been personally reviewed. Surface echocardiogram from May 2019 revealed normal LV size with D-shaped septum in systole. There was evidence of moderate concentric LVH with an ejection fraction estimated to be 35%. Right ventricular systolic pressure was estimated to be 31 mmHg. - Physical Exam Vitals/I&O's: Vital Signs Temp Pulse Resp BP Pulse Ox 98.4 F 70 15 118/70 98 11/28/19 00:00 11/28/19 06:00 11/28/19 06:00 11/28/19 06:00 11/28/19 06:00 Oxygen Flow Rate (L/min) 4 Oxygen Delivery Method Nasal Cannula Weight: 204 lb 9.423 oz Body Mass Index (BMI) 31.3 Finger Stick Blood Glucose 190 Intake and Output for Last 24 Hours 11/26/19 11/27/19 11/28/19 23:59 23:59 23:59 Intake Total 275 / 295 190 / 190 Output Total 640 / 640 Balance 275 / 295 -450 / -450 General: Alert, Oriented x3, Cooperative, No apparent distress, - - Sitting upright in bed. Nasal cannula in place. HEENT: Atraumatic, PERRLA, Normocephalic Oral: No Gingival or Mucosal Lesions/ Ulcerations Neck: Supple, No Nodes, Trachea Midline Lungs: Diminished, Rhonchi Cardiovascular: Regular rate, Regular Rhythm, Normal S1, Normal S2, - - Paced rhythm on telemetry Abdomen: Bowel Sounds Present, Soft, Non Tender, Obese Extremities: No clubbing, No cyanosis, No edema Skin: No breakdown Musculoskeletal: No Tenderness to Palpation of Joints or Extremities Lymphatic: No Cervical, Supraclavicular, or Inguinal Adenopathy Neurological: Cranial nerves II-XII grossly intact, Neuro grossly intact Psych/Mental Status: Alert and oriented to time, place, person, mood and affect Labs (Last 48 Hours) 11/27/19 11/27/19 11/27/19 19:15 19:15 19:15 WBC 11.5 H RBC 4.45 L Hgb 14.1 Hct 43.7 MCV 98.2 H MCH 31.7 MCHC 32.3 RDW Std Deviation 48.4 H RDW Coeff of Gavino 13.4 Plt Count 277 MPV 11.7 Immature Gran % (Auto) 1.800 H Neut % (Auto) 69.3 Lymph % (Auto) 13.3 L Coos % (Auto) 12.5 H Eos % (Auto) 2.4 Baso % (Auto) 0.7 Absolute Neuts (auto) 8.0 H Absolute Lymphs (auto) 1.54 Nucleated RBC % 0 Differential Comment PT 21.2 H INR 1.8 APTT 49.1 H Specimen Type Sample Site pH Bicarbonate Actual POC Total CO2 Base Excess O2 Saturation O2 % ABG pCO2 ABG pO2 Raul Test Respiration Rate O2 Delivery Device EPAP IPAP Blood Gas Notified Whom Blood Gas Notified Time Sodium 139 Potassium 4.1 Chloride 106 Carbon Dioxide 26.0 Anion Gap 7 BUN 29 H Creatinine 1.63 H Estim Creat Clear Calc 33.23 Est GFR (MDRD) Af Amer 52 L Est GFR (MDRD) Non-Af 43 L BUN/Creatinine Ratio 17.8 Glucose 184 H Lactic Acid Calcium 9.1 Magnesium Troponin I 0.192 H B-Natriuretic Peptide POC Glucose 11/27/19 11/27/19 11/27/19 19:15 19:15 19:15 WBC RBC Hgb Hct MCV MCH MCHC RDW Std Deviation RDW Coeff of Gavino Plt Count MPV Immature Gran % (Auto) Neut % (Auto) Lymph % (Auto) Coos % (Auto) Eos % (Auto) Baso % (Auto) Absolute Neuts (auto) Absolute Lymphs (auto) Nucleated RBC % Differential Comment PT INR APTT Specimen Type Sample Site pH Bicarbonate Actual POC Total CO2 Base Excess O2 Saturation O2 % ABG pCO2 ABG pO2 Raul Test Respiration Rate O2 Delivery Device EPAP IPAP Blood Gas Notified Whom Blood Gas Notified Time Sodium Potassium Chloride Carbon Dioxide Anion Gap BUN Creatinine Estim Creat Clear Calc Est GFR (MDRD) Af Amer Est GFR (MDRD) Non-Af BUN/Creatinine Ratio Glucose Lactic Acid 2.9 H* Calcium Magnesium 2.4 Troponin I B-Natriuretic Peptide 287.4 H POC Glucose 11/27/19 11/27/19 11/27/19 19:19 21:20 22:10 WBC RBC Hgb Hct MCV MCH MCHC RDW Std Deviation RDW Coeff of Gavino Plt Count MPV Immature Gran % (Auto) Neut % (Auto) Lymph % (Auto) Coos % (Auto) Eos % (Auto) Baso % (Auto) Absolute Neuts (auto) Absolute Lymphs (auto) Nucleated RBC % Differential Comment PT INR APTT Specimen Type ART Sample Site L Radial pH 7.45 Bicarbonate Actual 23.2 POC Total CO2 24 Base Excess -1 O2 Saturation 95 O2 % 0 ABG pCO2 33.2 L ABG pO2 71 L Raul Test POS Respiration Rate 12 O2 Delivery Device Bi / C PAP EPAP 8 IPAP 12 Blood Gas Notified Whom ICU MD Blood Gas Notified Time 2119 Sodium Potassium Chloride Carbon Dioxide Anion Gap BUN Creatinine Estim Creat Clear Calc Est GFR (MDRD) Af Amer Est GFR (MDRD) Non-Af BUN/Creatinine Ratio Glucose Lactic Acid Calcium Magnesium Troponin I 0.151 H B-Natriuretic Peptide POC Glucose 190 H 11/27/19 11/27/19 11/28/19 22:18 23:45 01:10 WBC RBC Hgb Hct MCV MCH MCHC RDW Std Deviation RDW Coeff of Gavino Plt Count MPV Immature Gran % (Auto) Neut % (Auto) Lymph % (Auto) Coos % (Auto) Eos % (Auto) Baso % (Auto) Absolute Neuts (auto) Absolute Lymphs (auto) Nucleated RBC % Differential Comment PT INR APTT Specimen Type Sample Site pH Bicarbonate Actual POC Total CO2 Base Excess O2 Saturation O2 % ABG pCO2 ABG pO2 Raul Test Respiration Rate O2 Delivery Device EPAP IPAP Blood Gas Notified Whom Blood Gas Notified Time Sodium Potassium Chloride Carbon Dioxide Anion Gap BUN Creatinine Estim Creat Clear Calc Est GFR (MDRD) Af Amer Est GFR (MDRD) Non-Af BUN/Creatinine Ratio Glucose Lactic Acid 1.2 Calcium Magnesium Troponin I 0.154 H B-Natriuretic Peptide POC Glucose 162 H 11/28/19 11/28/19 11/28/19 04:20 04:20 04:20 WBC 11.2 H RBC 3.56 L Hgb 11.3 L Hct 34.8 L MCV 97.8 H MCH 31.7 MCHC 32.5 RDW Std Deviation 47.9 H RDW Coeff of Gavino 13.4 Plt Count 193 MPV 11.6 Immature Gran % (Auto) 1.200 H Neut % (Auto) 87.9 H Lymph % (Auto) 4.9 L Coos % (Auto) 5.4 Eos % (Auto) 0.3 Baso % (Auto) 0.3 Absolute Neuts (auto) 9.9 H Absolute Lymphs (auto) 0.55 L Nucleated RBC % 0 Differential Comment PT 22.1 H INR 1.9 APTT Specimen Type Sample Site pH Bicarbonate Actual POC Total CO2 Base Excess O2 Saturation O2 % ABG pCO2 ABG pO2 Raul Test Respiration Rate O2 Delivery Device EPAP IPAP Blood Gas Notified Whom Blood Gas Notified Time Sodium 139 Potassium 4.4 Chloride 109 H Carbon Dioxide 25.0 Anion Gap 5 BUN 27 H Creatinine 1.14 Estim Creat Clear Calc 47.51 Est GFR (MDRD) Af Amer 79 Est GFR (MDRD) Non-Af 66 BUN/Creatinine Ratio 23.7 H Glucose 147 H Lactic Acid Calcium 8.3 L Magnesium Troponin I B-Natriuretic Peptide POC Glucose Microbiology 11/27/19 21:40 Mucosa - Nasopharyngeal Respiratory Panel (PCR) - Final 11/28/19 03:20 Urine Catheter - Catheter Streptococcus pneumoniae Antigen (M - Final 11/28/19 03:20 Urine Catheter - Catheter Legionella Antigen - Final 11/27/19 19:27 Mucosa - Nose Influenza Types A,B Direct FA (AMELIE) - Final Clinical Impression(s) from Imaging Studies Chest X-Ray 11/27/19 19:28 IMPRESSION: Left base atelectasis and/or small infiltrate with small effusion. Pulmonary vascular prominence with trace edema. Mild cardiomegaly. Electronically Signed: Angel Fuentes, at 19:44 EST Tel , Service support , Current Medications Acetaminophen (Tylenol) 650 mg PO Q6H PRN PRN PRN Reason: Pain Score 1-10/Temp > 100.7 F Al Hydroxide/Mg Hydroxide (Mylanta Ii) 30 ml PO Q6H PRN PRN PRN Reason: Gastric Burning Albuterol Sulfate (Ventolin Aerosols) 2.5 mg INHALATION Q2H PRN PRN PRN Reason: SOB/Wheezing Allopurinol (Zyloprim) 100 mg PO DAILYCM [facility] Amiodarone HCl (Cordarone) 400 mg PO DAILY [facility] Aspirin (Aspirin, Baby) 81 mg PO DAILYCM [facility] Atorvastatin Calcium (Lipitor) 40 mg PO QHS [facility] Last Admin: 11/27/19 22:34 Dose: 40 mg Documented by: Calcium Carbonate (Os-Chandler 500) 500 mg PO DAILY [facility] Carvedilol (Coreg) 12.5 mg PO BID [facility] Last Admin: 11/27/19 22:18 Dose: 12.5 mg Documented by: Cholecalciferol (Vitamin D) 1,000 unit PO DAILY [facility] Clopidogrel Bisulfate (Plavix) 75 mg PO DAILY [facility] Colestipol HCl (Colestid Tablet) 1 gm PO BID [facility] Diphenhydramine HCl (Benadryl) 50 mg IV X1 ONE Stop: 11/28/19 10:31 Fenofibrate (Tricor) 145 mg PO DAILY [facility] Folic Acid (Folic Acid) 2 mg PO DAILY@0800 [facility] Gabapentin (Neurontin) 400 mg PO TIDCM [facility] Glucagon () 1 mg IM .X1 PRN PRN Reason: Hypoglycemia Guaifenesin (Robitussin) 10 ml PO Q4H PRN PRN PRN Reason: COUGH Hydralazine HCl (Apresoline Iv) 10 mg IV Q4H PRN PRN PRN Reason: SBP > 160 Sodium Chloride () 1,000 mls @ 100 mls/hr IV .Q10H [facility] Last Admin: 11/27/19 21:49 Dose: 100 mls/hr Documented by: Piperacillin Sod/Tazobactam (Sod 3.375 gm/ Sodium Chloride) 50 mls @ 12.5 mls/hr IV Q8 [facility] Stop: 12/04/19 22:01 Last Admin: 11/28/19 05:35 Dose: 12.5 mls/hr Documented by: Vancomycin IV Pharmacy to Dose (1 ea/ Sodium Chloride) 500 mls @ 250 mls/hr IV X1 PRN; Protocol PRN Reason: Rx to Dose Sodium Chloride () 250 mls @ 15 mls/hr IV .[id number] PRN PRN Reason: Saline Flush Sodium Chloride () 250 mls @ 15 mls/hr IV .[id number] PRN PRN Reason: Additional IVPB Infusion Dextrose (Dextrose 10%-Water) 250 mls @ 999 mls/hr IV .Q16M PRN; Protocol PRN Reason: HYPOGLYCEMIA Vancomycin HCl 1,250 mg/ (Sodium Chloride) 275 mls @ 167 mls/hr IV Q24H [facility] Insulin Glargine (Lantus (Bk)) 27 units SC BID [facility] Last Admin: 11/27/19 22:34 Dose: 13 units Documented by: Insulin Human Lispro (Humalog Kwikpen (Bk)) 0 unit SC ACHS [facility]; Protocol Last Admin: 11/27/19 22:34 Dose: Not Given Documented by: Levothyroxine Sodium (Synthroid) 75 mcg PO DAILY@0600 [facility] Last Admin: 11/28/19 05:36 Dose: 75 mcg Documented by: Magnesium Hydroxide (Milk Of Magnesia) 30 ml PO DAILY PRN PRN PRN Reason: Constipation Melatonin (Melatonin) 3 mg PO QHS PRN PRN PRN Reason: INSOMNIA Methylprednisolone (Medrol) 32 mg PO Q12H [facility] Stop: 11/28/19 11:31 Morphine Sulfate () 2 mg IV Q3H PRN PRN PRN Reason: Pain Score 6-10/10 Nitroglycerin (Nitrostat) 0.4 mg SUBLINGUAL Q5M PRN PRN Reason: CARDIAC/CHEST PAIN Ondansetron HCl (Zofran) 4 mg IV Q8H PRN PRN PRN Reason: NAUSEA/VOMITING Oxycodone HCl (Oxyir) 5 mg PO Q4H PRN PRN PRN Reason: Pain Score 4-5/10 Pantoprazole Sodium (Protonix) 20 mg PO BID [facility] Last Admin: 11/27/19 22:18 Dose: 20 mg Documented by: Prochlorperazine Edisylate (Compazine Iv) 5 mg IV Q4H PRN PRN PRN Reason: Breakthrough Nausea/Vomiting Psyllium Hydrophilic Mucilloid (Metamucil) 1 packet PO DAILY PRN PRN PRN Reason: Constipation Senna/Docusate Sodium (Senokot-S, Sharron-Colace) 2 tablet PO BID PRN PRN PRN Reason: Constipation Sodium Chloride () 10 - 40 ml IV UD PRN PRN Reason: SALINE FLUSH Throat Lozenges (Cepacol Sore Throat Lozenge) 1 lozenge MUCOUS MEM Q2H PRN PRN PRN Reason: SORE THROAT Tizanidine HCl (Zanaflex) 4 mg PO DAILY [facility] Assessment/Plan Active and Suspected Problems (Last Updated 02/13/20 @ 15:11 by Winifred Landry) Acute respiratory failure with hypoxia (Acute) Pneumonia (Acute) Hemoptysis (Acute) Ventricular tachycardia (Acute) Non-ST elevation (NSTEMI) myocardial infarction (Acute) RECOMMENDATIONS: 1. Continue antimicrobials, pending infectious work-up. 2. Restart Lasix. 3. Obtain noncontrasted chest CT. 4. Okay to restart systemic anticoagulation tomorrow, if no further episodes of hemoptysis are reported. 5. Wean supplemental oxygen to maintain saturations at or above 90%. 6. Encourage incentive spirometer use and mobilize patient as tolerated. 7. Continue nocturnal BiPAP therapy. 8. The patient is medically stable for transfer out of the intensive care unit. IMPRESSIONS: 1. Acute hypoxemic respiratory failure Presentation is likely multifactorial in etiology with concern for underlying healthcare associated pneumonia and component of heart failure as well. The patient's last known ejection fraction was 35% in May 2019. He was recently discharged from [facility] after having a stent placed in his RCA. I do not feel that the patient needs to have a contrasted chest CT completed this morning. Therefore, I discontinued that imaging study and replaced it with a noncontrasted chest CT. The patient will remain on antimicrobials with vancomycin and Zosyn, pending infectious work-up. I would also recommend that the patient be started on a diuretic therapy regimen as well. Wean supplemental oxygen as tolerated. 2. Known history of coronary artery disease/indeterminant troponin/paroxysmal atrial fibrillation/chronic systolic heart failure The patient is to remain on aspirin and Plavix, given recent stent placement. He was previously being bridged from therapeutic Lovenox to Coumadin due to his atrial dysrhythmia. However, this remains on hold due to his reported blood-streaked sputum. This has since resolved. The patient systemic anticoagulation can likely be restarted tomorrow, if no further episodes of hemoptysis are reported. I would recommend that the patient's Lasix regimen be resumed. 3. History of obstructive sleep apnea The patient does report compliance with the use of nocturnal Pap therapy. However, it is unclear whether he is prescribed nocturnal BiPAP or CPAP therapy. Therefore, the patient will be continued on empiric BiPAP therapy on a nightly basis while admitted to the hospital. 4. Hypothyroidism/hyperlipidemia/GERD/diabetes mellitus Complicates care, management, recovery and prognosis. Continue home medications as indicated. This note was generated with [employer] software. It may contain incorrect words, spelling, and punctuation that were not noted in checking the note before signing. Code Visit Inpatient E&M: 84139 Init Hosp L3
[2019-11-28 07:00] LABS: Bedside Glucose 186 mg/dL (70-110)
--- NOTE | 2019-11-28 07:01 | CT_ITS ---
STUDY: CT CHEST WITHOUT CONTRAST REASON FOR EXAM: Male, 79 years old. SOB, HYPOXIA. PRIOR CABG RADIATION DOSAGE (If Supplied By Facility): CTDIvol = ( 18.76 ) mGy, DLP = ( 693.89 ) mGycm TECHNIQUE: Transaxial imaging was performed without the administration of intravenous contrast material. Multiplanar coronal and sagittal images were reformatted. Individualized dose optimization techniques were used for this CT. COMPARISON: Chest x-ray November 27, 2019. FINDINGS: There is interstitial accentuation of the lungs. There is left mid and lower lung airspace consolidation. There is right lower lung atelectasis. There is right lower lung granuloma. There is small right pleural effusion. There is moderate left pleural effusion. Sternal cerclage wires are present from a prior sternotomy. Dual-chamber pacemaker device on the left. There are mitral annular calcifications. There are left ventricular calcifications consistent with aneurysm. There are mildly enlarged mediastinal lymph nodes including at the AP window measuring 1.7 cm. Normal hilar regions. Normal unenhanced pulmonary arteries. There is atherosclerotic calcification of the aortic arch with tortuosity and elongation of the aortic arch and descending thoracic aorta. There are multi-level degenerative changes of the thoracic spine. There are multiple gallstones. There are calcified splenic granulomata. CT/Chest without Contrast IMPRESSION: Left mid and lower lung infiltrate. There are bilateral pleural effusions. Small gallstones. Atherosclerosis. Stable postoperative changes. Left ventricular aneurysm. Electronically Signed: Bryon Argueta MD at 9:10 EST , Service support ,
[2019-11-28] MEDS: Insulin Lispro 100 UNIT/ML INSULN.PEN SC ×4 (08:01→21:00)
[2019-11-28] MEDS: Folic Acid 1 MG Tablet 2 MG PO (08:02)
[2019-11-28] MEDS: Gabapentin 400 MG Capsule PO ×3 (08:03→17:25)
[2019-11-28] MEDS: Allopurinol 100 MG Tablet PO (08:05)
--- NOTE | 2019-11-28 09:16 | CM.UR ---
Participated in interdisciplinary rounds this am. Patient is alert and sitting up in chair. at bedside. Patient has been weaned to room air. Explained will return later for CM assessment. Dr. Fisher stated to continue to use bipap during sleep. Plans to transfer out of ICU today. Hai Singleton RN, CCM.
[2019-11-28] MEDS: Aspirin 81 MG TAB.CHEW PO (09:47)
[2019-11-28] MEDS: Amiodarone 200 MG Tablet 400 MG PO (09:48)
[2019-11-28] MEDS: Carvedilol 12.5 MG Tablet PO (09:49)
[2019-11-28] MEDS: Pantoprazole Sodium 20 MG Tablet PO ×2 (09:52→21:00)
[2019-11-28] MEDS: Clopidogrel Bisulfate 75 MG Tablet PO (09:53)
[2019-11-28] MEDS: Fenofibrate 145 MG Tablet PO (09:54)
[2019-11-28] MEDS: Calcium (Elemental) 500 MG Tablet PO (09:54)
[2019-11-28] MEDS: tiZANidine HCl 2 MG Tablet 4 MG PO (09:55)
--- NOTE | 2019-11-28 10:06 | CM.UR ---
RN CM Assessment Introduced role of RN CM to patient. Patient is alert and able to participate in RN CM Assessment. Care providers, pharmacy, and demographics verified. at bedside. Presentation: shortness of breath, productive cough with streaks of blood. Admit Dx: HCAP Re-Admit: Yes. Discharged from [facility] last week. Barriers/Issues: None PCP: Dr. Lang [facility] Insurance: MCR/Forney Supplement Rx Benefit: yes LNOK: , Lizet LW/HPOA: None. Did accept booklet on advance directives. Instructed on how to get done during hospitalization and after discharge. Living Arrangements: 1 story home with . Has ramp over steps in garage so they don't have to do steps. 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 ADL?s: Usually independent with all ADLs except medication management. helps set up pills weekly. Transportation: Normally drives self but since he currently isn't allowed to drive. drives. DME: CPAP from [employer], walker and grab bars. DME co: [employer]. HHC: None SNF: None Goal: Return home. DC PLAN: Home, possibly with O2. Patient is agreeable to [employer] if home o2 is needed. Green sheet completed for home O2. Hai Singlteon RN, CCM.
[2019-11-28 11:55] LABS: Bedside Glucose 273 mg/dL (70-110)
--- NOTE | 2019-11-28 14:44 | PCM.PROGNOTE ---
Patient Problems: Active and Suspected Problems (Last Updated 11/26/19 @ 15:11 by Winifred Landry) Acute respiratory failure with hypoxia (Acute) Pneumonia (Acute) Hemoptysis (Acute) Ventricular tachycardia (Acute) Non-ST elevation (NSTEMI) myocardial infarction (Acute) Subjective: Patient was seen and examined today in ICU, he is currently on room air at this time, critical care states that the patient can be moved to PCU for further care. I talked briefly to the patient and his today, patient came in with shortness of breath yesterday and was on BiPAP for short period of time. He also complained of hemoptysis which is not recurred since he has been in the hospital. Patient is not currently on Coumadin-he was placed on Coumadin recently according to the after being hospitalized in [place] for heart issues including a PCI to the right coronary artery with stent placement. She thinks the Coumadin is for atrial fib. Patient was admitted yesterday for hemoptysis and pneumonia. CT scan of the chest today shows a left mid and lower lung infiltrate. - Physical Exam Vitals/I&O's: Vital Signs Temp Pulse Resp BP Pulse Ox 97.5 F L 70 19 H 95/59 L 97 11/28/19 12:00 11/28/19 14:00 11/28/19 14:00 11/28/19 14:00 11/28/19 14:00 Oxygen Flow Rate (L/min) 2 Oxygen Delivery Method Bi-pap Weight: 92.8 kg Body Mass Index (BMI) 31.3 Finger Stick Blood Glucose 190 Intake and Output for Last 24 Hours 11/26/19 11/27/19 11/28/19 23:59 23:59 23:59 Intake Total 275 / 295 1500.00 / 1500.00 Output Total 1040 / 1040 Balance 275 / 295 460.00 / 460.00 General: Alert, Oriented x3, Cooperative, No apparent distress, Well developed HEENT: Atraumatic, PERRLA, EOMI, Normocephalic Oral: Moist Mucosa Neck: Supple, No JVD, Trachea Midline, Thyroid Normal Size and Texture Lungs: Normal air movement, No wheeze, No rales, Rhonchi - Expiratory rhonchi are noted bilaterally Cardiovascular: Regular rate, Regular Rhythm, Normal S1, Normal S2, No murmurs, PMI Normal, No rub noted Abdomen: Bowel Sounds Present, Soft, Non Tender, Non-Distended Extremities: No clubbing, No cyanosis, No edema, Capillary Refill Less than 3 Seconds Skin: No rashes, No breakdown Musculoskeletal: No Tenderness to Palpation of Joints or Extremities Neurological: Cranial nerves II-XII grossly intact, Neuro grossly intact, Sensory exam intact to light touch and pain Psych/Mental Status: Normal Affect, Appropriate, Alert and oriented to time, place, person, mood and affect Microbiology Past 72 Hours 11/27/19 21:40 Mucosa - Nasopharyngeal Respiratory Panel (PCR) - Final 11/28/19 03:20 Urine Catheter - Catheter Streptococcus pneumoniae Antigen (M - Final 11/28/19 03:20 Urine Catheter - Catheter Legionella Antigen - Final 11/27/19 19:27 Mucosa - Nose Influenza Types A,B Direct FA (AMELIE) - Final Laboratory Results 11/27/19 19:15: WBC 11.5 H, RBC 4.45 L, Hgb 14.1, Hct 43.7, MCV 98.2 H, MCH 31.7, MCHC 32.3, RDW Std Deviation 48.4 H, RDW Coeff of Gavino 13.4, Plt Count 277, MPV 11.7, Immature Gran % (Auto) 1.800 H, Neut % (Auto) 69.3, Lymph % (Auto) 13.3 L, [place] % (Auto) 12.5 H, Eos % (Auto) 2.4, Baso % (Auto) 0.7, Absolute Neuts (auto) 8.0 H, Absolute Lymphs (auto) 1.54, Nucleated RBC % 0 11/27/19 19:15: PT 21.2 H, INR 1.8, APTT 49.1 H 11/27/19 19:15: Sodium 139, Potassium 4.1, Chloride 106, Carbon Dioxide 26.0, Anion Gap 7, BUN 29 H, Creatinine 1.63 H, Estim Creat Clear Calc 33.23, Est GFR (MDRD) Af Amer 52 L, Est GFR (MDRD) Non-Af 43 L, BUN/Creatinine Ratio 17.8, Glucose 184 H, Calcium 9.1, Troponin I 0.192 H 11/27/19 19:15: Lactic Acid 2.9 H* 11/27/19 19:15: B-Natriuretic Peptide 287.4 H 11/27/19 19:15: Magnesium 2.4 11/27/19 19:19: POC Glucose 190 H 11/27/19 21:20: Specimen Type ART, Sample Site L Radial, pH 7.45, Bicarbonate Actual 23.2, POC Total CO2 24, Base Excess -1, O2 Saturation 95, O2 % 0, ABG pCO2 33.2 L, ABG pO2 71 L, Raul Test POS, Respiration Rate 12, O2 Delivery Device Bi / C PAP, EPAP 8, IPAP 12, Blood Gas Notified Whom ICU , Blood Gas Notified Time 211911/27/19 22:10: Troponin I 0.151 H 11/27/19 22:18: POC Glucose 162 H 11/27/19 23:45: Lactic Acid 1.2 11/28/19 01:10: Troponin I 0.154 H 11/28/19 04:20: WBC 11.2 H, RBC 3.56 L, Hgb 11.3 L, Hct 34.8 L, MCV 97.8 H, MCH 31.7, MCHC 32.5, RDW Std Deviation 47.9 H, RDW Coeff of Gavino 13.4, Plt Count 193, MPV 11.6, Immature Gran % (Auto) 1.200 H, Neut % (Auto) 87.9 H, Lymph % (Auto) 4.9 L, [place] % (Auto) 5.4, Eos % (Auto) 0.3, Baso % (Auto) 0.3, Absolute Neuts (auto) 9.9 H, Absolute Lymphs (auto) 0.55 L, Nucleated RBC % 0, Differential Comment 11/28/19 04:20: PT 22.1 H, INR 1.9 11/28/19 04:20: Sodium 139, Potassium 4.4, Chloride 109 H, Carbon Dioxide 25.0, Anion Gap 5, BUN 27 H, Creatinine 1.14, Estim Creat Clear Calc 47.51, Est GFR (MDRD) Af Amer 79, Est GFR (MDRD) Non-Af 66, BUN/Creatinine Ratio 23.7 H, Glucose 147 H, Calcium 8.3 L 11/28/19 06:54: POC Glucose 186 H 11/28/19 11:46: POC Glucose 273 H Current Medications Acetaminophen (Tylenol) 650 mg PO Q6H PRN PRN PRN Reason: Pain Score 1-10/Temp > 100.7 F Al Hydroxide/Mg Hydroxide (Mylanta Ii) 30 ml PO Q6H PRN PRN PRN Reason: Gastric Burning Albuterol Sulfate (Ventolin Aerosols) 2.5 mg INHALATION Q2H PRN PRN PRN Reason: SOB/Wheezing [facility] Admin: 11/28/19 08:05 Dose: 100 mg Documented by: Amiodarone HCl (Cordarone) 400 mg PO DAILY [facility] Last Admin: 11/28/19 09:48 Dose: 400 mg Documented by: Aspirin (Aspirin, Baby) [facility] Admin: 11/28/19 09:47 Dose: 81 mg Documented by: Atorvastatin Calcium (Lipitor) 40 mg PO QHS [facility] Last Admin: 11/27/19 22:34 Dose: 40 mg Documented by: Calcium Carbonate (Os-Chandler 500) 500 mg PO DAILY [facility] Last Admin: 11/28/19 09:54 Dose: 500 mg Documented by: Carvedilol (Coreg) 12.5 mg PO BID [facility] Last Admin: 11/28/19 09:49 Dose: 12.5 mg Documented by: Cholecalciferol (Vitamin D) 1,000 unit PO DAILY [facility] Last Admin: 11/28/19 09:54 Dose: 1,000 unit Documented by: Clopidogrel Bisulfate (Plavix) 75 mg PO DAILY [facility] Last Admin: 11/28/19 09:53 Dose: 75 mg Documented by: Colestipol HCl (Colestid Tablet) 1 gm PO BID [facility] Fenofibrate (Tricor) 145 mg PO DAILY [facility] Last Admin: 11/28/19 09:54 Dose: 145 mg Documented by: Folic Acid (Folic Acid) 2 mg PO DAILY@0800 [facility] Last Admin: 11/28/19 08:02 Dose: 2 mg Documented by: Gabapentin (Neurontin) 400 mg PO TIDCM [facility] Last Admin: 11/28/19 11:48 Dose: 400 mg Documented by: Glucagon () 1 mg IM .X1 PRN PRN Reason: Hypoglycemia Guaifenesin (Robitussin) 10 ml PO Q4H PRN PRN PRN Reason: COUGH Hydralazine HCl (Apresoline Iv) 10 mg IV Q4H PRN PRN PRN Reason: SBP > 160 Piperacillin Sod/Tazobactam (Sod 3.375 gm/ Sodium Chloride) 50 mls @ 12.5 mls/hr IV Q8 [facility] Stop: 12/04/19 22:01 Last Infusion: 11/28/19 09:35 Dose: Infused Documented by: Vancomycin IV Pharmacy to Dose (1 ea/ Sodium Chloride) 500 mls @ 250 mls/hr IV X1 PRN; Protocol PRN Reason: Rx to Dose Sodium Chloride () 250 mls @ 15 mls/hr IV .[id number] PRN PRN Reason: Saline Flush Sodium Chloride () 250 mls @ 15 mls/hr IV .[id number] PRN PRN Reason: Additional IVPB Infusion Dextrose (Dextrose 10%-Water) 250 mls @ 999 mls/hr IV .Q16M PRN; Protocol PRN Reason: HYPOGLYCEMIA Vancomycin HCl 1,250 mg/ (Sodium Chloride) 275 mls @ 167 mls/hr IV Q24H [facility] Insulin Glargine (Lantus (Bkc)) 27 units SC BID [facility] Last Admin: 11/28/19 09:49 Dose: 27 units Documented by: Insulin Human Lispro (Humalog Kwikpen (Bkc)) 0 unit SC ACHS [facility]; Protocol Last Admin: 11/28/19 11:47 Dose: 3 u Documented by: Levothyroxine Sodium (Synthroid) 75 mcg PO DAILY@0600 [facility] Last Admin: 11/28/19 05:36 Dose: 75 mcg Documented by: Magnesium Hydroxide (Milk Of Magnesia) 30 ml PO DAILY PRN PRN PRN Reason: Constipation Melatonin (Melatonin) 3 mg PO QHS PRN PRN PRN Reason: INSOMNIA Nitroglycerin (Nitrostat) 0.4 mg SUBLINGUAL Q5M PRN PRN Reason: CARDIAC/CHEST PAIN Ondansetron HCl (Zofran) 4 mg IV Q8H PRN PRN PRN Reason: NAUSEA/VOMITING Oxycodone HCl (Oxyir) 5 mg PO Q4H PRN PRN PRN Reason: Pain Score 4-5/10 Pantoprazole Sodium (Protonix) 20 mg PO BID [facility] Last Admin: 11/28/19 09:52 Dose: 20 mg Documented by: Prochlorperazine Edisylate (Compazine Iv) 5 mg IV Q4H PRN PRN PRN Reason: Breakthrough Nausea/Vomiting Psyllium Hydrophilic Mucilloid (Metamucil) 1 packet PO DAILY PRN PRN PRN Reason: Constipation Senna/Docusate Sodium (Senokot-S, Sharron-Colace) 2 tablet PO BID PRN PRN PRN Reason: Constipation Sodium Chloride () 10 - 40 ml IV UD PRN PRN Reason: SALINE FLUSH Throat Lozenges (Cepacol Sore Throat Lozenge) 1 lozenge MUCOUS MEM Q2H PRN PRN PRN Reason: SORE THROAT Tizanidine HCl (Zanaflex) 4 mg PO DAILY [facility] Last Admin: 11/28/19 09:55 Dose: 4 mg Documented by: Medical Necessity - Tobacco Use Smoking Status: Never smoker Tobacco Use: Non-smoker Assessment/Plan All Active Problems (Last Updated 11/26/19 @ 15:11 by Winifred Landry) Severe sepsis (Ruled-out) Acute respiratory failure with hypoxia (Acute) Pneumonia (Acute) Hemoptysis (Acute) FILIPE (acute kidney injury) (Ruled-out) Ventricular tachycardia (Acute) Non-ST elevation (NSTEMI) myocardial infarction (Acute) History of myocardial infarction (Acute) Atrioventricular block (Acute) Premature ventricular contraction (Acute) #1 acute hypoxic respiratory failure secondary to healthcare acquired pneumonia-continue present antibiotic coverage, continue to monitor pulse ox #2 left mid and lower lobe healthcare acquired pneumonia-continue present antibiotic coverage #3 paroxysmal atrial fibrillation #4 hemoptysis-etiology unclear, patient's Coumadin will be held at this time #5 coronary artery disease with recent PCI and right coronary artery stent placement #6 type 2 diabetes - monitor blood sugars #7 obstructive sleep apnea #8 essential hypertension #9 lactic acid elevation probably secondary to hypoxic respiratory failure #10 dehydration #11 chronic systolic congestive heart failure-patient will be placed back on his outpatient Lasix, for now his blood pressure is low I feel he could resume his Lasix tomorrow however. #12 elevated troponin-probably secondary to recent cardiac intervention #13 ischemic cardiomyopathy Sepsis has been ruled out Code Visit Inpatient E&M: 89751 Subs Hosp L2
[2019-11-28] MEDS: 0.9% Saline Lock 10 ML Syringe IV ×2 (16:07→21:07)
[2019-11-28 16:26] LABS: Bedside Glucose 269 mg/dL (70-110)
[2019-11-28] MEDS: Atorvastatin Calcium 40 MG Tablet PO (21:00)
[2019-11-28 21:41] LABS: Bedside Glucose 264 mg/dL (70-110)
--- NOTE | 2019-11-28 22:18 | PCM.RX.CS ---
Consult Pharmacy has been consulted to manage selected antiobiotic: Vancomycin Type of Consult: Follow-up Suspected Infection: Pneumonia Labs: Sodium 139 mmol/L (136-145) 11/28/19 04:20 Potassium 4.4 mmol/L (3.5-5.1) 11/28/19 04:20 Chloride 109 mmol/L (98-107) H 11/28/19 04:20 Carbon Dioxide 25.0 mmol/L (21.0-32.0) 11/28/19 04:20 Anion Gap 5 (5-15) 11/28/19 04:20 BUN 27 mg/dL (7-18) H 11/28/19 04:20 Creatinine 1.14 mg/dL (0.70-1.30) 11/28/19 04:20 Est GFR (MDRD) Af Amer 79 mL/min (>60) 11/28/19 04:20 Est GFR (MDRD) Non-Af 66 mL/min (>60) 11/28/19 04:20 BUN/Creatinine Ratio 23.7 RATIO (10-20) H 11/28/19 04:20 Glucose 147 mg/dL (74-106) H 11/28/19 04:20 Microbiology: Microbiology 11/27/19 21:40 Mucosa - Nasopharyngeal Respiratory Panel (PCR) - Final 11/28/19 03:20 Urine Catheter - Catheter Streptococcus pneumoniae Antigen (M - Final 11/28/19 03:20 Urine Catheter - Catheter Legionella Antigen - Final 11/27/19 19:27 Mucosa - Nose Influenza Types A,B Direct FA (AMELIE) - Final Goal Trough: 15-20 mcg/mL Pharmacy Plan for Drug Dosing: Pharmacy Service will continue to monitor and adjust dosing as required. CRCl INCREASED TO 54.59 CHANGE TO VANCO 1000 Q12H Follow-Up Labs: Trough Vancomycin Labs to be done on [date and time ordered]: 11/30 @ 2988
[2019-11-29] VITALS (13 sets, daily range): BP systolic 94–109; BP diastolic 56–65; PULSE 81–88; RESP 12–22; TEMP 36.1–36.8; O2SAT 94–99
[2019-11-29] MEDS: Levothyroxine 75 MCG Tablet PO (05:08)
[2019-11-29 06:45] LABS: Bedside Glucose 110 mg/dL (70-110)
[2019-11-29] MEDS: 0.9% Saline Lock 10 ML Syringe IV ×4 (07:41→21:00)
--- NOTE | 2019-11-29 07:54 | PCM.PN.PUL ---
Patient Problems: Active and Suspected Problems (Last Updated 11/26/19 @ 15:11 by Winifred Landry) Acute respiratory failure with hypoxia (Acute) Pneumonia (Acute) Hemoptysis (Acute) Ventricular tachycardia (Acute) Non-ST elevation (NSTEMI) myocardial infarction (Acute) Subjective: The patient was seen and examined at the bedside this morning. Events from the last 24 hours have been reviewed. The patient is currently afebrile, hemodynamically stable and maintaining appropriate oxygen saturations on 2 L/min via nasal cannula. The patient tolerated BiPAP overnight. He does report improvement in his shortness of breath this morning. He denies the presence of hemoptysis. Objective: The patient's most recent lab work, culture data and imaging studies have all been personally reviewed. Noncontrasted chest CT was personally reviewed and revealed evidence of a left basilar airspace opacity with moderate left pleural effusion and small right pleural effusion. Strep and urine Legionella antigens were negative. Respiratory viral panel was negative. - Physical Exam Vitals/I&O's: Vital Signs Temp Pulse Resp BP Pulse Ox 98.3 F 87 22 H 101/57 L 97 11/29/19 02:45 11/29/19 04:30 11/29/19 04:30 11/29/19 02:45 11/29/19 04:30 Oxygen Flow Rate (L/min) 2 Oxygen Delivery Method Bi-pap Weight: 206 lb 9.17 oz Body Mass Index (BMI) 31.3 Finger Stick Blood Glucose 190 Intake and Output for Last 24 Hours 11/27/19 11/28/19 11/29/19 23:59 23:59 23:59 Intake Total 275 / 295 2378.75 / 2378.75 168.25 / 168.25 Output Total 1390 / 1390 175 / 175 Balance 275 / 295 988.75 / 988.75 -6.75 / -6.75 General: Alert, Oriented x3, Cooperative, No apparent distress HEENT: Atraumatic, PERRLA, Normocephalic Oral: No Gingival or Mucosal Lesions/ Ulcerations Neck: Supple, No Nodes, Trachea Midline Lungs: - - Diminished air movement in left lung base. Cardiovascular: Regular rate, Regular Rhythm, Normal S1, Normal S2 Abdomen: Bowel Sounds Present, Soft, Non Tender Extremities: No clubbing, No cyanosis, No edema Skin: No breakdown Musculoskeletal: No Tenderness to Palpation of Joints or Extremities, No Muscle Wasting Lymphatic: No Cervical, Supraclavicular, or Inguinal Adenopathy Neurological: Cranial nerves II-XII grossly intact, Neuro grossly intact Psych/Mental Status: Alert and oriented to time, place, person, mood and affect Labs (Last 48 Hours) 11/27/19 11/27/19 11/27/19 19:15 19:15 19:15 WBC 11.5 H RBC 4.45 L Hgb 14.1 Hct 43.7 MCV 98.2 H MCH 31.7 MCHC 32.3 RDW Std Deviation 48.4 H RDW Coeff of Gavino 13.4 Plt Count 277 MPV 11.7 Immature Gran % (Auto) 1.800 H Neut % (Auto) 69.3 Lymph % (Auto) 13.3 L Motley % (Auto) 12.5 H Eos % (Auto) 2.4 Baso % (Auto) 0.7 Absolute Neuts (auto) 8.0 H Absolute Lymphs (auto) 1.54 Nucleated RBC % 0 Differential Comment PT 21.2 H INR 1.8 APTT 49.1 H Specimen Type Sample Site pH Bicarbonate Actual POC Total CO2 Base Excess O2 Saturation O2 % ABG pCO2 ABG pO2 Raul Test Respiration Rate O2 Delivery Device EPAP IPAP Blood Gas Notified Whom Blood Gas Notified Time Sodium 139 Potassium 4.1 Chloride 106 Carbon Dioxide 26.0 Anion Gap 7 BUN 29 H Creatinine 1.63 H Estim Creat Clear Calc 33.23 Est GFR (MDRD) Af Amer 52 L Est GFR (MDRD) Non-Af 43 L BUN/Creatinine Ratio 17.8 Glucose 184 H Lactic Acid Calcium 9.1 Magnesium Troponin I 0.192 H B-Natriuretic Peptide POC Glucose 11/27/19 11/27/19 11/27/19 19:15 19:15 19:15 WBC RBC Hgb Hct MCV MCH MCHC RDW Std Deviation RDW Coeff of Gavino Plt Count MPV Immature Gran % (Auto) Neut % (Auto) Lymph % (Auto) Motley % (Auto) Eos % (Auto) Baso % (Auto) Absolute Neuts (auto) Absolute Lymphs (auto) Nucleated RBC % Differential Comment PT INR APTT Specimen Type Sample Site pH Bicarbonate Actual POC Total CO2 Base Excess O2 Saturation O2 % ABG pCO2 ABG pO2 Raul Test Respiration Rate O2 Delivery Device EPAP IPAP Blood Gas Notified Whom Blood Gas Notified Time Sodium Potassium Chloride Carbon Dioxide Anion Gap BUN Creatinine Estim Creat Clear Calc Est GFR (MDRD) Af Amer Est GFR (MDRD) Non-Af BUN/Creatinine Ratio Glucose Lactic Acid 2.9 H* Calcium Magnesium 2.4 Troponin I B-Natriuretic Peptide 287.4 H POC Glucose 11/27/19 11/27/19 11/27/19 19:19 21:20 22:10 WBC RBC Hgb Hct MCV MCH MCHC RDW Std Deviation RDW Coeff of Gavino Plt Count MPV Immature Gran % (Auto) Neut % (Auto) Lymph % (Auto) Motley % (Auto) Eos % (Auto) Baso % (Auto) Absolute Neuts (auto) Absolute Lymphs (auto) Nucleated RBC % Differential Comment PT INR APTT Specimen Type ART Sample Site L Radial pH 7.45 Bicarbonate Actual 23.2 POC Total CO2 24 Base Excess -1 O2 Saturation 95 O2 % 0 ABG pCO2 33.2 L ABG pO2 71 L Raul Test POS Respiration Rate 12 O2 Delivery Device Bi / C PAP EPAP 8 IPAP 12 Blood Gas Notified Whom ICU MD Blood Gas Notified Time 2119 Sodium Potassium Chloride Carbon Dioxide Anion Gap BUN Creatinine Estim Creat Clear Calc Est GFR (MDRD) Af Amer Est GFR (MDRD) Non-Af BUN/Creatinine Ratio Glucose Lactic Acid Calcium Magnesium Troponin I 0.151 H B-Natriuretic Peptide POC Glucose 190 H 11/27/19 11/27/19 11/28/19 22:18 23:45 01:10 WBC RBC Hgb Hct MCV MCH MCHC RDW Std Deviation RDW Coeff of Gavino Plt Count MPV Immature Gran % (Auto) Neut % (Auto) Lymph % (Auto) Motley % (Auto) Eos % (Auto) Baso % (Auto) Absolute Neuts (auto) Absolute Lymphs (auto) Nucleated RBC % Differential Comment PT INR APTT Specimen Type Sample Site pH Bicarbonate Actual POC Total CO2 Base Excess O2 Saturation O2 % ABG pCO2 ABG pO2 Raul Test Respiration Rate O2 Delivery Device EPAP IPAP Blood Gas Notified Whom Blood Gas Notified Time Sodium Potassium Chloride Carbon Dioxide Anion Gap BUN Creatinine Estim Creat Clear Calc Est GFR (MDRD) Af Amer Est GFR (MDRD) Non-Af BUN/Creatinine Ratio Glucose Lactic Acid 1.2 Calcium Magnesium Troponin I 0.154 H B-Natriuretic Peptide POC Glucose 162 H 11/28/19 11/28/19 11/28/19 04:20 04:20 04:20 WBC 11.2 H RBC 3.56 L Hgb 11.3 L Hct 34.8 L MCV 97.8 H MCH 31.7 MCHC 32.5 RDW Std Deviation 47.9 H RDW Coeff of Gavino 13.4 Plt Count 193 MPV 11.6 Immature Gran % (Auto) 1.200 H Neut % (Auto) 87.9 H Lymph % (Auto) 4.9 L Motley % (Auto) 5.4 Eos % (Auto) 0.3 Baso % (Auto) 0.3 Absolute Neuts (auto) 9.9 H Absolute Lymphs (auto) 0.55 L Nucleated RBC % 0 Differential Comment PT 22.1 H INR 1.9 APTT Specimen Type Sample Site pH Bicarbonate Actual POC Total CO2 Base Excess O2 Saturation O2 % ABG pCO2 ABG pO2 Raul Test Respiration Rate O2 Delivery Device EPAP IPAP Blood Gas Notified Whom Blood Gas Notified Time Sodium 139 Potassium 4.4 Chloride 109 H Carbon Dioxide 25.0 Anion Gap 5 BUN 27 H Creatinine 1.14 Estim Creat Clear Calc 47.51 Est GFR (MDRD) Af Amer 79 Est GFR (MDRD) Non-Af 66 BUN/Creatinine Ratio 23.7 H Glucose 147 H Lactic Acid Calcium 8.3 L Magnesium Troponin I B-Natriuretic Peptide POC Glucose 11/28/19 11/28/19 11/28/19 06:54 11:46 16:16 WBC RBC Hgb Hct MCV MCH MCHC RDW Std Deviation RDW Coeff of Gavino Plt Count MPV Immature Gran % (Auto) Neut % (Auto) Lymph % (Auto) Motley % (Auto) Eos % (Auto) Baso % (Auto) Absolute Neuts (auto) Absolute Lymphs (auto) Nucleated RBC % Differential Comment PT INR APTT Specimen Type Sample Site pH Bicarbonate Actual POC Total CO2 Base Excess O2 Saturation O2 % ABG pCO2 ABG pO2 Ralu Test Respiration Rate O2 Delivery Device EPAP IPAP Blood Gas Notified Whom Blood Gas Notified Time Sodium Potassium Chloride Carbon Dioxide Anion Gap BUN Creatinine Estim Creat Clear Calc Est GFR (MDRD) Af Amer Est GFR (MDRD) Non-Af BUN/Creatinine Ratio Glucose Lactic Acid Calcium Magnesium Troponin I B-Natriuretic Peptide POC Glucose 186 H 273 H 269 H 11/28/19 11/29/19 20:59 06:32 WBC RBC Hgb Hct MCV MCH MCHC RDW Std Deviation RDW Coeff of Gavino Plt Count MPV Immature Gran % (Auto) Neut % (Auto) Lymph % (Auto) Motley % (Auto) Eos % (Auto) Baso % (Auto) Absolute Neuts (auto) Absolute Lymphs (auto) Nucleated RBC % Differential Comment PT INR APTT Specimen Type Sample Site pH Bicarbonate Actual POC Total CO2 Base Excess O2 Saturation O2 % ABG pCO2 ABG pO2 Raul Test Respiration Rate O2 Delivery Device EPAP IPAP Blood Gas Notified Whom Blood Gas Notified Time Sodium Potassium Chloride Carbon Dioxide Anion Gap BUN Creatinine Estim Creat Clear Calc Est GFR (MDRD) Af Amer Est GFR (MDRD) Non-Af BUN/Creatinine Ratio Glucose Lactic Acid Calcium Magnesium Troponin I B-Natriuretic Peptide POC Glucose 264 H 110 Microbiology 11/27/19 21:40 Mucosa - Nasopharyngeal Respiratory Panel (PCR) - Final 11/28/19 03:20 Urine Catheter - Catheter Streptococcus pneumoniae Antigen (M - Final 11/28/19 03:20 Urine Catheter - Catheter Legionella Antigen - Final 11/27/19 19:27 Mucosa - Nose Influenza Types A,B Direct FA (AMELIE) - Final Clinical Impression(s) from Imaging Studies Chest X-Ray 11/27/19 19:28 IMPRESSION: Left base atelectasis and/or small infiltrate with small effusion. Pulmonary vascular prominence with trace edema. Mild cardiomegaly. Electronically Signed: Angel Fuentes, at 19:44 EST Tel , Service support , Chest CT 11/28/19 07:01 IMPRESSION: Left mid and lower lung infiltrate. There are bilateral pleural effusions. Small gallstones. Atherosclerosis. Stable postoperative changes. Left ventricular aneurysm. Electronically Signed: Bryon Argueta MD at 9:10 EST , Service support , Current Medications Acetaminophen (Tylenol) 650 mg PO Q6H PRN PRN PRN Reason: Pain Score 1-10/Temp > 100.7 F Al Hydroxide/Mg Hydroxide (Mylanta Ii) 30 ml PO Q6H PRN PRN PRN Reason: Gastric Burning Albuterol Sulfate (Ventolin Aerosols) 2.5 mg INHALATION Q2H PRN PRN PRN Reason: SOB/Wheezing Allopurinol (Zyloprim) 100 mg PO DAILYCM [facility] Last Admin: 11/28/19 08:05 Dose: 100 mg Documented by: Amiodarone HCl (Cordarone) 400 mg PO DAILY [facility] Last Admin: 11/28/19 09:48 Dose: 400 mg Documented by: [facility], Baby) [facility] Last Admin: 11/28/19 09:47 Dose: 81 mg Documented by: Atorvastatin Calcium (Lipitor) 40 mg PO QHS [facility] Last Admin: 11/28/19 21:00 Dose: 40 mg Documented by: Calcium Carbonate (Os-Chandler 500) 500 mg PO DAILY [facility] Last Admin: 11/28/19 09:54 Dose: 500 mg Documented by: Carvedilol (Coreg) 12.5 mg PO BID [facility] Last Admin: 11/28/19 21:34 Dose: Not Given Documented by: Cholecalciferol (Vitamin D) 1,000 unit PO DAILY [facility] Last Admin: 11/28/19 09:54 Dose: 1,000 unit Documented by: Clopidogrel Bisulfate (Plavix) 75 mg PO DAILY [facility] Last Admin: 11/28/19 09:53 Dose: 75 mg Documented by: Colestipol HCl (Colestid Tablet) 1 gm PO BID [facility] Fenofibrate (Tricor) 145 mg PO DAILY [facility] Last Admin: 11/28/19 09:54 Dose: 145 mg Documented by: Folic Acid (Folic Acid) 2 mg PO DAILY@0800 [facility] Last Admin: 11/28/19 08:02 Dose: 2 mg Documented by: Furosemide (Lasix) 40 mg PO DAILY [facility] Gabapentin (Neurontin) 400 mg PO TIDCM [facility] Last Admin: 11/28/19 17:25 Dose: 400 mg Documented by: Glucagon () 1 mg IM .X1 PRN PRN Reason: Hypoglycemia Guaifenesin (Robitussin) 10 ml PO Q4H PRN PRN PRN Reason: COUGH Hydralazine HCl (Apresoline Iv) 10 mg IV Q4H PRN PRN PRN Reason: SBP > 160 Piperacillin Sod/Tazobactam (Sod 3.375 gm/ Sodium Chloride) 50 mls @ 12.5 mls/hr IV Q8 [facility] Stop: 12/04/19 22:01 Last Admin: 11/29/19 05:08 Dose: 12.5 mls/hr Documented by: Vancomycin IV Pharmacy to Dose (1 ea/ Sodium Chloride) 500 mls @ 250 mls/hr IV X1 PRN; Protocol PRN Reason: Rx to Dose Sodium Chloride () 250 mls @ 15 mls/hr IV .[id number] PRN PRN Reason: Saline Flush Last Infusion: 11/29/19 05:08 Dose: 0 mls/hr Documented by: Sodium Chloride () 250 mls @ 15 mls/hr IV .[id number] PRN PRN Reason: Additional IVPB Infusion Dextrose (Dextrose 10%-Water) 250 mls @ 999 mls/hr IV .Q16M PRN; Protocol PRN Reason: HYPOGLYCEMIA Vancomycin HCl (Vancomycin) 1,000 mg in 200 mls @ 200 mls/hr IV Q12H [facility] Insulin Glargine (Lantus (Bk)) 27 units SC BID [facility] Last Admin: 11/28/19 21:01 Dose: 27 units Documented by: Insulin Human Lispro (Humalog Kwikpen ([facility])) 0 unit SC ACHS [facility]; Protocol Last Admin: 11/29/19 06:50 Dose: Not Given Documented by: Levothyroxine Sodium (Synthroid) 75 mcg PO DAILY@0600 [facility] Last Admin: 11/29/19 05:08 Dose: 75 mcg Documented by: Magnesium Hydroxide (Milk Of Magnesia) 30 ml PO DAILY PRN PRN PRN Reason: Constipation Melatonin (Melatonin) 3 mg PO QHS PRN PRN PRN Reason: INSOMNIA Nitroglycerin (Nitrostat) 0.4 mg SUBLINGUAL Q5M PRN PRN Reason: CARDIAC/CHEST PAIN Ondansetron HCl (Zofran) 4 mg IV Q8H PRN PRN PRN Reason: NAUSEA/VOMITING Oxycodone HCl (Oxyir) 5 mg PO Q4H PRN PRN PRN Reason: Pain Score 4-5/10 Pantoprazole Sodium (Protonix) 20 mg PO BID [facility] Last Admin: 11/28/19 21:00 Dose: 20 mg Documented by: Prochlorperazine Edisylate (Compazine Iv) 5 mg IV Q4H PRN PRN PRN Reason: Breakthrough Nausea/Vomiting Psyllium Hydrophilic Mucilloid (Metamucil) 1 packet PO DAILY PRN PRN PRN Reason: Constipation Senna/Docusate Sodium (Senokot-S, Sharron-Colace) 2 tablet PO BID PRN PRN PRN Reason: Constipation Sodium Chloride () 10 - 40 ml IV UD PRN PRN Reason: SALINE FLUSH Last Admin: 11/29/19 07:41 Dose: 10 ml Documented by: Throat Lozenges (Cepacol Sore Throat Lozenge) 1 lozenge MUCOUS MEM Q2H PRN PRN PRN Reason: SORE THROAT Tizanidine HCl (Zanaflex) 4 mg PO DAILY [facility] Last Admin: 11/28/19 09:55 Dose: 4 mg Documented by: Medical Necessity - Tobacco Use Smoking Status: Never smoker Tobacco Use: Non-smoker Assessment/Plan All Active Problems (Last Updated 11/26/19 @ 15:11 by Winifred Landry) Severe sepsis (Ruled-out) Acute respiratory failure with hypoxia (Acute) Pneumonia (Acute) Hemoptysis (Acute) FILIPE (acute kidney injury) (Ruled-out) Ventricular tachycardia (Acute) Non-ST elevation (NSTEMI) myocardial infarction (Acute) History of myocardial infarction (Acute) Atrioventricular block (Acute) Premature ventricular contraction (Acute) RECOMMENDATIONS: 1. Continue Zosyn, given findings noted on CT chest. 2. Continue Lasix. 3. Likely okay to resume systemic anticoagulation. 4. Wean supplemental oxygen to maintain saturations at or above 90%. 5. Encourage incentive spirometer use and mobilize patient as tolerated. 6. Continue nocturnal BiPAP therapy. IMPRESSIONS: 1. Acute hypoxemic respiratory failure Presentation is likely multifactorial in etiology with concern for underlying healthcare associated pneumonia and component of heart failure as well. The patient's last known ejection fraction was 35% in May 2019. He was recently discharged from [facility] after having a stent placed in his RCA. Noncontrasted chest CT did reveal evidence of a left lower lobe airspace opacity with associated effusion along with a small right pleural effusion. Recommend continuing Zosyn and diuretic therapy. Continue to wean supplemental oxygen to maintain saturations at or above 90%. Encourage incentive spirometer use and mobilize patient as tolerated. 2. Known history of coronary artery disease/indeterminant troponin/paroxysmal atrial fibrillation/chronic systolic heart failure The patient is to remain on aspirin and Plavix, given recent stent placement. He was previously being bridged from therapeutic Lovenox to Coumadin due to his atrial dysrhythmia. Systemic anticoagulation can likely be resumed, the patient has not had any further episodes of blood-streaked sputum. Continue Lasix as ordered. 3. History of obstructive sleep apnea The patient does report compliance with the use of nocturnal Pap therapy. However, it is unclear whether he is prescribed nocturnal BiPAP or CPAP therapy. Therefore, the patient will be continued on empiric BiPAP therapy on a nightly basis while admitted to the hospital. 4. Hypothyroidism/hyperlipidemia/GERD/diabetes mellitus Complicates care, management, recovery and prognosis. Continue home medications as indicated. This note was generated with Oration dictation software. It may contain incorrect words, spelling, and punctuation that were not noted in checking the note before signing. Code Visit Inpatient E&M: 92199 Subs Hosp L2
--- NOTE | 2019-11-29 08:02 | RAD_ITS ---
STUDY: X-RAY CHEST REASON FOR EXAM: Male, 79 years old. PNEUMONIA TECHNIQUE: Single AP portable view of the chest. COMPARISON: November 27, 2019 FINDINGS: Pacemaker device on the left is stable. There are monitoring devices. There are worsening left sided mid and lower lung groundglass and airspace increased opacities. There is blunting of the left costophrenic recess. Sternal cerclage wires are present from a prior sternotomy. There is cardiac enlargement. Normal mediastinum and dorene. Normal visualized pulmonary arteries. Normal visualized aortic arch and descending thoracic aorta. Normal visualized thoracic spine. Normal visualized ribs, clavicles, and shoulders. There is no demonstrated abnormality of the visualized soft tissue structures of the upper abdomen. RAD/Chest 1 View (Portable) IMPRESSION: Worsening left-sided infiltrate or edema and pleural effusion. Electronically Signed: Bryon Argueta MD at 8:51 EST , Service support ,
[2019-11-29 08:45] LABS: Absolute Lymphocyte Count 1.06 X10^3/uL (0.83-4.51); Absolute Neutrophil Count 5.9 X10^3/uL (2.0-7.7); Basophil# 0.04 X10^3/uL; Basophil% 0.5 % (0-1); Eosinophil# 0.14 X10^3/uL; Eosinophils% 1.6 % (0-5); Hematocrit 32.5 % (40-54); Hemoglobin 10.6 g/dL (13.0-16.5); Lymphocyte # 1.06 X10^3/ul (4.0); Lymphocyte % 12.2 % (19-41); Mean Corp Hgb Conc 32.6 g/dL (32-36); Mean Corpuscular Hgb 31.8 pg (27.0-32.0); Mean Corpuscular Volume 97.6 fL (80-94); Mean Platelet Vol. 11.6 fl (6.2-12.0); Monocyte# 1.44 X10^3/uL; Monocyte% 16.6 % (0-10); NRBC Flagged by Analyzer 0 % (0-5); Neutrophil # 5.94 X10^3/uL (2.7-7.7); Neutrophil % 68.3 % (47-70); Platelet Count 217 K/mm3 (150-450); RBC Distribution Width CV 13.6 % (11.6-14.6); RBC Distribution Width SD 48.2 fl (35.1-43.9); Red Blood Count 3.33 M/mm3 (4.6-6.2); White Blood Count 8.7 K/mm3 (4.4-11.0)
[2019-11-29] MEDS: tiZANidine HCl 2 MG Tablet 4 MG PO (08:51)
[2019-11-29] MEDS: Calcium (Elemental) 500 MG Tablet PO (08:52)
[2019-11-29] MEDS: Allopurinol 100 MG Tablet PO (08:52)
[2019-11-29] MEDS: Fenofibrate 145 MG Tablet PO (08:52)
[2019-11-29] MEDS: Gabapentin 400 MG Capsule PO ×3 (08:52→16:12)
[2019-11-29] MEDS: Carvedilol 12.5 MG Tablet PO (08:52)
[2019-11-29] MEDS: Amiodarone 200 MG Tablet 400 MG PO (08:52)
[2019-11-29] MEDS: Furosemide 40 MG Tablet PO (08:52)
[2019-11-29] MEDS: Folic Acid 1 MG Tablet 2 MG PO (08:52)
[2019-11-29] MEDS: Pantoprazole Sodium 20 MG Tablet PO ×2 (08:52→21:05)
[2019-11-29] MEDS: Aspirin 81 MG TAB.CHEW PO (08:53)
[2019-11-29] MEDS: Clopidogrel Bisulfate 75 MG Tablet PO (08:58)
[2019-11-29 09:22] LABS: Anion Gap 5 (5-15); BUN 25 mg/dL (7-18); BUN/Creat Ratio 22.5 RATIO (10-20); Calcium,Total 8.7 mg/dL (8.5-10.1); Chloride 109 mmol/L (98-107); Creatinine, Serum 1.11 mg/dL (0.70-1.30); EST Glomerular Filtration Rate 68 mL/min (>60); Est Glom Filt Rate - Afr Amer 82 mL/min (>60); Glucose 91 mg/dL (74-106); Potassium 4.1 mmol/L (3.5-5.1); Sodium Level 138 mmol/L (136-145)
[2019-11-29] MEDS: Vancomycin IV 1,000 MG/200 ML BAG 200 MG IV ×2 (10:08→21:00)
[2019-11-29] MEDS: Insulin Lispro 100 UNIT/ML INSULN.PEN SC ×3 (11:03→21:04)
[2019-11-29 11:10] LABS: Bedside Glucose 252 mg/dL (70-110)
--- NOTE | 2019-11-29 15:44 | PN_ITS ---
Patient Problems: Active and Suspected Problems (Last Updated 11/26/19 @ 15:11 by Winifred Landry) Acute respiratory failure with hypoxia (Acute) Pneumonia (Acute) Hemoptysis (Acute) Subjective: Patient was seen and examined today, I performed a chest x-ray on the patient which showed increasing infiltrate in the patient's left lung. There is also noted to be blunting of the left costophrenic angle suggesting fluid. White blood cell count today was normal. Patient remains afebrile. Objective: General: Alert, Oriented x3, Cooperative, No apparent distress, Well developed HEENT: Atraumatic, PERRLA, EOMI, Normocephalic Oral: Moist Mucosa Neck: Supple, No JVD, Trachea Midline, Thyroid Normal Size and Texture Lungs: No wheeze, inspiratory rales and decreased breath sounds are noted over the left lower lung field Cardiovascular: Regular rate, Regular Rhythm, Normal S1, Normal S2, No murmurs, PMI Normal, No rub noted Abdomen: Bowel Sounds Present, Soft, Non Tender, Non-Distended Extremities: No clubbing, No cyanosis, No edema, Capillary Refill Less than 3 Seconds Skin: No rashes, No breakdown Musculoskeletal: No Tenderness to Palpation of Joints or Extremities Neurological: Cranial nerves II-XII grossly intact, Neuro grossly intact, Senso ry exam intact to light touch and pain Psych/Mental Status: Normal Affect, Appropriate, Alert and oriented to time, place, person, mood and affect - Physical Exam Vitals/I&O's: Vital Signs Temp Pulse Resp BP Pulse Ox 97 F L 85 18 94/56 L 96 11/29/19 14:45 11/29/19 15:23 11/29/19 14:45 11/29/19 14:45 11/29/19 14:45 Oxygen Flow Rate (L/min) 3 Oxygen Delivery Method Nasal Cannula Weight: 93.7 kg Body Mass Index (BMI) 31.3 Finger Stick Blood Glucose 190 Intake and Output for Last 24 Hours 11/27/19 11/28/19 11/29/19 23:59 23:59 23:59 Intake Total 275 / 295 2378.75 / 2378.75 733.25 / 733.25 Output Total 1390 / 1390 500 / 500 Balance 275 / 295 988.75 / 988.75 233.25 / 233.25 Microbiology Past 72 Hours 11/27/19 21:40 Mucosa - Nasopharyngeal Respiratory Panel (PCR) - Final 11/28/19 03:20 Urine Catheter - Catheter Streptococcus pneumoniae Antigen (M - Final 11/28/19 03:20 Urine Catheter - Catheter Legionella Antigen - Final 11/27/19 19:27 Mucosa - Nose Influenza Types A,B Direct FA (AMELIE) - Final Laboratory Results 11/28/19 16:16: POC Glucose 269 H 11/28/19 20:59: POC Glucose 264 H 11/29/19 06:32: POC Glucose 110 11/29/19 08:37: WBC 8.7, RBC 3.33 L, Hgb 10.6 L, Hct 32.5 L, MCV 97.6 H, MCH 31.8, MCHC 32.6, RDW Std Deviation 48.2 H, RDW Coeff of Gavino 13.6, Plt Count 217, MPV 11.6, Immature Gran % (Auto) 0.800, Neut % (Auto) 68.3, Lymph % (Auto) 12.2 L, Eddy % (Auto) 16.6 H, Eos % (Auto) 1.6, Baso % (Auto) 0.5, Absolute Neuts (auto) 5.9, Absolute Lymphs (auto) 1.06, Nucleated RBC % 0 11/29/19 08:37: Sodium 138, Potassium 4.1, Chloride 109 H, Carbon Dioxide 24.0, Anion Gap 5, BUN 25 H, Creatinine 1.11, Estim Creat Clear Calc 48.80, Est GFR (MDRD) Af Amer 82, Est GFR (MDRD) Non-Af 68, BUN/Creatinine Ratio 22.5 H, Glucose 91, Calcium 8.7 11/29/19 11:01: POC Glucose 252 H Current Medications Acetaminophen (Tylenol) 650 mg PO Q6H PRN PRN PRN Reason: Pain Score 1-10/Temp > 100.7 F Al Hydroxide/Mg Hydroxide (Mylanta Ii) 30 ml PO Q6H PRN PRN PRN Reason: Gastric Burning Albuterol Sulfate (Ventolin Aerosols) 2.5 mg INHALATION Q2H PRN PRN PRN Reason: SOB/Wheezing Allopurinol (Zyloprim) 100 mg PO DAILYCM COUNT INCLUDES THE [facility] Last Admin: 11/29/19 08:52 Dose: 100 mg Documented by: Amiodarone HCl (Cordarone) 400 mg PO DAILY COUNT INCLUDES THE [facility] Last Admin: 11/29/19 08:52 Dose: 400 mg Documented by: Aspirin (Aspirin, Baby) 81 mg PO DAILYCM COUNT INCLUDES THE [facility] Last Admin: 11/29/19 08:53 Dose: 81 mg Documented by: Atorvastatin Calcium (Lipitor) 40 mg PO QHS COUNT INCLUDES THE [facility] Last Admin: 11/28/19 21:00 Dose: 40 mg Documented by: Calcium Carbonate (Os-Chandler 500) 500 mg PO DAILY COUNT INCLUDES THE [facility] Last Admin: 11/29/19 08:52 Dose: 500 mg Documented by: Carvedilol (Coreg) 12.5 mg PO BID COUNT INCLUDES THE [facility] Last Admin: 11/29/19 08:52 Dose: 12.5 mg Documented by: Cholecalciferol (Vitamin D) 1,000 unit PO DAILY COUNT INCLUDES THE [facility] Last Admin: 11/29/19 08:52 Dose: 1,000 unit Documented by: Clopidogrel Bisulfate (Plavix) 75 mg PO DAILY COUNT INCLUDES THE [facility] Last Admin: 11/29/19 08:58 Dose: 75 mg Documented by: Colestipol HCl (Colestid Tablet) 1 gm PO BID COUNT INCLUDES THE [facility] Fenofibrate (Tricor) 145 mg PO DAILY COUNT INCLUDES THE [facility] Last Admin: 11/29/19 08:52 Dose: 145 mg Documented by: Folic Acid (Folic Acid) 2 mg PO DAILY@0800 COUNT INCLUDES THE [facility] Last Admin: 11/29/19 08:52 Dose: 2 mg Documented by: Furosemide (Lasix) 40 mg PO DAILY COUNT INCLUDES THE [facility] Last Admin: 11/29/19 08:52 Dose: 40 mg Documented by: Gabapentin (Neurontin) 400 mg PO TIDCM COUNT INCLUDES THE [facility] Last Admin: 11/29/19 12:14 Dose: 400 mg Documented by: Glucagon () 1 mg IM .X1 PRN PRN Reason: Hypoglycemia Guaifenesin (Robitussin) 10 ml PO Q4H PRN PRN PRN Reason: COUGH Hydralazine HCl (Apresoline Iv) 10 mg IV Q4H PRN PRN PRN Reason: SBP > 160 Piperacillin Sod/Tazobactam (Sod 3.375 gm/ Sodium Chloride) 50 mls @ 12.5 mls/hr IV Q8 COUNT INCLUDES THE [facility] Stop: 12/04/19 22:01 Last Admin: 11/29/19 13:54 Dose: 12.5 mls/hr Documented by: Vancomycin IV Pharmacy to Dose (1 ea/ Sodium Chloride) 500 mls @ 250 mls/hr IV X1 PRN; Protocol PRN Reason: Rx to Dose Sodium Chloride () 250 mls @ 15 mls/hr IV .[id number] PRN PRN Reason: Saline Flush Last Infusion: 11/29/19 10:08 Dose: 0 mls/hr Documented by: Sodium Chloride () 250 mls @ 15 mls/hr IV .[id number] PRN PRN Reason: Additional IVPB Infusion Dextrose (Dextrose 10%-Water) 250 mls @ 999 mls/hr IV .Q16M PRN; Protocol PRN Reason: HYPOGLYCEMIA Vancomycin HCl (Vancomycin) 1,000 mg in 200 mls @ 200 mls/hr IV Q12H COUNT INCLUDES THE [facility] Last Infusion: 11/29/19 11:10 Dose: Infused Documented by: Insulin Glargine (Lantus ([facility])) 27 units SC BID COUNT INCLUDES THE [facility] Last Admin: 11/29/19 08:53 Dose: 27 units Documented by: Insulin Human Lispro (Humalog Kwikpen ([facility])) 0 unit SC ACHS COUNT INCLUDES THE [facility]; Protocol Last Admin: 11/29/19 11:03 Dose: 3 u Documented by: Levothyroxine Sodium (Synthroid) 75 mcg PO DAILY@0600 COUNT INCLUDES THE [facility] Last Admin: 11/29/19 05:08 Dose: 75 mcg Documented by: Magnesium Hydroxide (Milk Of Magnesia) 30 ml PO DAILY PRN PRN PRN Reason: Constipation Melatonin (Melatonin) 3 mg PO QHS PRN PRN PRN Reason: INSOMNIA Nitroglycerin (Nitrostat) 0.4 mg SUBLINGUAL Q5M PRN PRN Reason: CARDIAC/CHEST PAIN Ondansetron HCl (Zofran) 4 mg IV Q8H PRN PRN PRN Reason: NAUSEA/VOMITING Oxycodone HCl (Oxyir) 5 mg PO Q4H PRN PRN PRN Reason: Pain Score 4-5/10 Pantoprazole Sodium (Protonix) 20 mg PO BID COUNT INCLUDES THE [facility] Last Admin: 11/29/19 08:52 Dose: 20 mg Documented by: Prochlorperazine Edisylate (Compazine Iv) 5 mg IV Q4H PRN PRN PRN Reason: Breakthrough Nausea/Vomiting Psyllium Hydrophilic Mucilloid (Metamucil) 1 packet PO DAILY PRN PRN PRN Reason: Constipation Senna/Docusate Sodium (Senokot-S, Sharron-Colace) 2 tablet PO BID PRN PRN PRN Reason: Constipation Sodium Chloride () 10 - 40 ml IV UD PRN PRN Reason: SALINE FLUSH Last Admin: 11/29/19 13:56 Dose: 10 ml Documented by: Throat Lozenges (Cepacol Sore Throat Lozenge) 1 lozenge MUCOUS MEM Q2H PRN PRN PRN Reason: SORE THROAT Tizanidine HCl (Zanaflex) 4 mg PO DAILY COUNT INCLUDES THE [facility] Last Admin: 11/29/19 08:51 Dose: 4 mg Documented by: Warfarin Sodium (Coumadin (Pbkc)) 2.5 mg PO DAILY@1700 COUNT INCLUDES THE [facility] Medical Necessity - Tobacco Use Smoking Status: Never smoker Tobacco Use: Non-smoker Assessment/Plan All Active Problems (Last Updated 11/26/19 @ 15:11 by Winifred Landry) Severe sepsis (Ruled-out) Acute respiratory failure with hypoxia (Acute) Pneumonia (Acute) Hemoptysis (Acute) FILIPE (acute kidney injury) (Ruled-out) Ventricular tachycardia (Acute) Non-ST elevation (NSTEMI) myocardial infarction (Acute) History of myocardial infarction (Acute) Atrioventricular block (Acute) Premature ventricular contraction (Acute) #1 acute hypoxic respiratory failure secondary to healthcare acquired pneumonia- continue present antibiotic coverage, continue to monitor pulse ox #2 left mid and lower lobe healthcare acquired pneumonia-continue present antibiotic coverage #3 paroxysmal atrial fibrillation #4 hemoptysis-etiology unclear, patient's Coumadin will be restarted today at 2.5 mg daily #5 coronary artery disease with recent PCI and right coronary artery stent placement #6 type 2 diabetes - monitor blood sugars #7 obstructive sleep apnea #8 essential hypertension #9 lactic acid elevation probably secondary to hypoxic respiratory failure #10 dehydration #11 chronic systolic congestive heart failure-patient will be placed back on his outpatient Lasix, for now his blood pressure is low I feel he could resume his Lasix tomorrow however. #12 elevated troponin-probably secondary to recent cardiac intervention #13 ischemic cardiomyopathy Sepsis has been ruled out Code Visit Inpatient E&M: 05435 Subs Hosp L2
[2019-11-29 16:21] LABS: Bedside Glucose 220 mg/dL (70-110)
[2019-11-29] MEDS: Atorvastatin Calcium 40 MG Tablet PO (21:05)
[2019-11-29] MEDS: MELATONIN 3 MG TABLET PO (21:06)
[2019-11-29] MEDS: Acetaminophen 325 MG Tablet 650 MG PO (21:10)
[2019-11-29 21:51] LABS: Bedside Glucose 238 mg/dL (70-110)
[2019-11-30] VITALS (9 sets, daily range): BP systolic 98–103; BP diastolic 60–64; PULSE 73–88; RESP 12–18; TEMP 36.6–36.9; O2SAT 91–98
[2019-11-30 06:15] LABS: International Normalized Ratio 2.1; Prothrombin Time (Protime)PT. 23.3 SECONDS (11.7-14.9)
[2019-11-30] MEDS: Levothyroxine 75 MCG Tablet PO (06:31)
[2019-11-30 06:40] LABS: Bedside Glucose 88 mg/dL (70-110)
[2019-11-30] MEDS: Folic Acid 1 MG Tablet 2 MG PO (08:41)
[2019-11-30] MEDS: Aspirin 81 MG TAB.CHEW PO (08:41)
[2019-11-30] MEDS: Amiodarone 200 MG Tablet 400 MG PO (08:42)
[2019-11-30] MEDS: Gabapentin 400 MG Capsule PO ×2 (08:42→11:27)
[2019-11-30] MEDS: Allopurinol 100 MG Tablet PO (08:42)
[2019-11-30] MEDS: Furosemide 40 MG Tablet PO (08:43)
[2019-11-30] MEDS: Calcium (Elemental) 500 MG Tablet PO (08:43)
[2019-11-30] MEDS: Carvedilol 12.5 MG Tablet PO (08:43)
[2019-11-30] MEDS: Fenofibrate 145 MG Tablet PO (08:44)
[2019-11-30] MEDS: Pantoprazole Sodium 20 MG Tablet PO (08:44)
[2019-11-30] MEDS: Clopidogrel Bisulfate 75 MG Tablet PO (08:44)
[2019-11-30] MEDS: tiZANidine HCl 2 MG Tablet 4 MG PO (08:45)
[2019-11-30 10:02] LABS: Vancomycin, Trough Level 17.8 ug/mL (5.0-15.0)
--- NOTE | 2019-11-30 11:15 | CASEMGMT ---
Per Opal DYKES, pt does not qualify for home oxygen at this time but she states that pt is weak with ambulation. Therapy is recommending [facility] PT/OT at discharge. This RN CM to room to discuss with pt/ at this time and list of local [facility] agencies provided to at this time. Pt / are agreeable to [facility] at this time and pt does state that he is pretty weak at this time. does state some concerns with the fact that pt has not been out of bed until today and that 'they might send him home today.' states 'why would you wait till the last day before you get him up?' Pt/ state that pt does have a walker at home. Opal DYKES aware of concerns, voices understanding. This RN CM to check back with pt/ later in regards to [facility] company. Darnell DYKES CM
[2019-11-30] MEDS: Vancomycin IV 1,000 MG/200 ML BAG 200 MG IV (11:26)
--- NOTE | 2019-11-30 11:29 | PCM.RX.CS ---
Consult Pharmacy has been consulted to manage selected antiobiotic: Vancomycin Type of Consult: Follow-up Suspected Infection: Pneumonia Prior Doses of Antibiotics Received/Current Regimen: 1 gm iv q12h. Labs: Sodium 138 mmol/L (136-145) 11/29/19 08:37 Potassium 4.1 mmol/L (3.5-5.1) 11/29/19 08:37 Chloride 109 mmol/L (98-107) H 11/29/19 08:37 Carbon Dioxide 24.0 mmol/L (21.0-32.0) 11/29/19 08:37 Anion Gap 5 (5-15) 11/29/19 08:37 BUN 25 mg/dL (7-18) H 11/29/19 08:37 Creatinine 1.11 mg/dL (0.70-1.30) 11/29/19 08:37 Est GFR (MDRD) Af Amer 82 mL/min (>60) 11/29/19 08:37 Est GFR (MDRD) Non-Af 68 mL/min (>60) 11/29/19 08:37 BUN/Creatinine Ratio 22.5 RATIO (10-20) H 11/29/19 08:37 Glucose 91 mg/dL (74-106) 11/29/19 08:37 Vancomycin Trough 17.8 ug/mL (5.0-15.0) H 11/30/19 09:10 Microbiology: Microbiology 11/27/19 21:40 Mucosa - Nasopharyngeal Respiratory Panel (PCR) - Final 11/28/19 03:20 Urine Catheter - Catheter Streptococcus pneumoniae Antigen (M - Final 11/28/19 03:20 Urine Catheter - Catheter Legionella Antigen - Final 11/27/19 19:27 Mucosa - Nose Influenza Types A,B Direct FA (AMELIE) - Final Weight used for dosin.3 kg Estimated Creatinine Clearance: ~55ml/min Goal Trough: 15-20 mcg/mL Pharmacy Plan for Drug Dosing: Trough today 17.8 (goal 15-20 mcg/ml). Will continue same dosage and get another trough level before 4th dose. Pharmacy Service will continue to monitor and adjust dosing as required. Follow-Up Labs: Trough Vancomycin - 2.18.20 @2130 before 2200 dose
[2019-11-30 11:36] LABS: Bedside Glucose 140 mg/dL (70-110)
--- NOTE | 2019-11-30 13:10 | PCM.PN.PUL ---
Patient Problems: Active and Suspected Problems (Last Updated 11/26/19 @ 15:11 by Winifred Landry) Acute respiratory failure with hypoxia (Acute) Pneumonia (Acute) Hemoptysis (Acute) Subjective: Patient did okay overnight. Patient was able to ambulate on room air and did well. Patient did wear BiPAP overnight and tolerated it well. Patient is reporting significant fatigue at this time, but no breathing complaints. - Physical Exam Vitals/I&O's: Vital Signs Temp Pulse Resp BP Pulse Ox 36.6 C 88 16 100/61 91 11/30/19 08:45 11/30/19 08:45 11/30/19 08:45 11/30/19 08:45 11/30/19 11:55 Oxygen Flow Rate (L/min) 2 Oxygen Delivery Method Room Air Weight: 94.3 kg Body Mass Index (BMI) 31.3 Finger Stick Blood Glucose 190 Intake and Output for Last 24 Hours 11/28/19 11/29/19 11/30/19 23:59 23:59 23:59 Intake Total 2378.75 / 2378.75 1858.08 / 1858.08 557.92 / 557.92 Output Total 1390 / 1390 1815 / 1815 1200 / 1200 Balance 988.75 / 988.75 43.08 / 43.08 -642.08 / -642.08 General: Alert, Oriented x3, Cooperative, No apparent distress, - - No conversational dyspnea. HEENT: Atraumatic, PERRLA, EOMI, Normocephalic Oral: Moist Mucosa, No Gingival or Mucosal Lesions/ Ulcerations Neck: Supple, No JVD, No Nodes, Trachea Midline Lungs: No rhonchi, No wheeze, No rales, Diminished - Left greater than right base, - - Symmetric expansion. Cardiovascular: Regular rate, Regular Rhythm, Normal S1, Normal S2, No murmurs, No rub noted, No Gallop Abdomen: Bowel Sounds Present, Soft, Non Tender, Non-Distended, Obese Extremities: No clubbing, No cyanosis, Edema - Trace lower extremity Skin: No rashes, No breakdown Musculoskeletal: No Tenderness to Palpation of Joints or Extremities Lymphatic: No Cervical, Supraclavicular, or Inguinal Adenopathy Neurological: Cranial nerves II-XII grossly intact, Neuro grossly intact, Motor Exam 5/5 strength throughout Psych/Mental Status: Flat Affect Microbiology Past 72 Hours 11/27/19 21:40 Mucosa - Nasopharyngeal Respiratory Panel (PCR) - Final 11/28/19 03:20 Urine Catheter - Catheter Streptococcus pneumoniae Antigen (M - Final 11/28/19 03:20 Urine Catheter - Catheter Legionella Antigen - Final 11/27/19 19:27 Mucosa - Nose Influenza Types A,B Direct FA (AMELIE) - Final Laboratory Results 11/29/19 16:05: POC Glucose 220 H 11/29/19 20:58: POC Glucose 238 H 11/30/19 05:15: PT 23.3 H, INR 2.1 11/30/19 06:31: POC Glucose 88 11/30/19 09:10: Vancomycin Trough 17.8 H 11/30/19 11:26: POC Glucose 140 H Current Medications Acetaminophen (Tylenol) 650 mg PO Q6H PRN PRN PRN Reason: Pain Score 1-10/Temp > 100.7 F Last Admin: 11/29/19 21:10 Dose: 650 mg Documented by: Al Hydroxide/Mg Hydroxide (Mylanta Ii) 30 ml PO Q6H PRN PRN PRN Reason: Gastric Burning Albuterol Sulfate (Ventolin Aerosols) 2.5 mg INHALATION Q2H PRN PRN PRN Reason: SOB/Wheezing [facility] Last Admin: 11/30/19 08:42 Dose: 100 mg Documented by: Amiodarone HCl (Cordarone) 400 mg PO DAILY [facility] Last Admin: 11/30/19 08:42 Dose: 400 mg Documented by: Aspirin (Aspirin, Baby) [facility] Last Admin: 11/30/19 08:41 Dose: 81 mg Documented by: Atorvastatin Calcium (Lipitor) 40 mg PO QHS [facility] Last Admin: 11/29/19 21:05 Dose: 40 mg Documented by: Calcium Carbonate (Os-Chandler 500) 500 mg PO DAILY [facility] Last Admin: 11/30/19 08:43 Dose: 500 mg Documented by: Carvedilol (Coreg) 12.5 mg PO BID [facility] Last Admin: 11/30/19 08:43 Dose: 12.5 mg Documented by: Cholecalciferol (Vitamin D) 1,000 unit PO DAILY [facility] Last Admin: 11/30/19 08:44 Dose: 1,000 unit Documented by: Clopidogrel Bisulfate (Plavix) 75 mg PO DAILY [facility] Last Admin: 11/30/19 08:44 Dose: 75 mg Documented by: Colestipol HCl (Colestid Tablet) 1 gm PO BID [facility] Last Admin: 11/30/19 10:06 Dose: 1 gm Documented by: Fenofibrate (Tricor) 145 mg PO DAILY [facility] Last Admin: 11/30/19 08:44 Dose: 145 mg Documented by: Folic Acid (Folic Acid) 2 mg PO DAILY@0800 [facility] Last Admin: 11/30/19 08:41 Dose: 2 mg Documented by: Furosemide (Lasix) 40 mg PO DAILY [facility] Last Admin: 11/30/19 08:43 Dose: 40 mg Documented by: Gabapentin (Neurontin) 400 mg PO TIDCM [facility] Last Admin: 11/30/19 11:27 Dose: 400 mg Documented by: Glucagon () 1 mg IM .X1 PRN PRN Reason: Hypoglycemia Guaifenesin (Robitussin) 10 ml PO Q4H PRN PRN PRN Reason: COUGH Hydralazine HCl (Apresoline Iv) 10 mg IV Q4H PRN PRN PRN Reason: SBP > 160 Piperacillin Sod/Tazobactam (Sod 3.375 gm/ Sodium Chloride) 50 mls @ 12.5 mls/hr IV Q8 [facility] Stop: 12/04/19 22:01 Last Infusion: 11/30/19 10:27 Dose: Infused Documented by: Vancomycin IV Pharmacy to Dose (1 ea/ Sodium Chloride) 500 mls @ 250 mls/hr IV X1 PRN; Protocol PRN Reason: Rx to Dose Sodium Chloride () 250 mls @ 15 mls/hr IV .[id number] PRN PRN Reason: Saline Flush Last Infusion: 11/30/19 05:00 Dose: 0 mls/hr Documented by: Sodium Chloride () 250 mls @ 15 mls/hr IV .[id number] PRN PRN Reason: Additional IVPB Infusion Dextrose (Dextrose 10%-Water) 250 mls @ 999 mls/hr IV .Q16M PRN; Protocol PRN Reason: HYPOGLYCEMIA Vancomycin HCl (Vancomycin) 1,000 mg in 200 mls @ 200 mls/hr IV Q12H [facility] Last Infusion: 11/30/19 12:59 Dose: Infused Documented by: Insulin Glargine (Lantus (Bk)) 27 units SC BID [facility] Last Admin: 11/30/19 08:45 Dose: 27 units Documented by: Insulin Human Lispro (Humalog Kwikpen (Bk)) 0 unit SC ACHS [facility]; Protocol Last Admin: 11/30/19 11:27 Dose: Not Given Documented by: Levothyroxine Sodium (Synthroid) 75 mcg PO DAILY@0600 [facility] Last Admin: 11/30/19 06:31 Dose: 75 mcg Documented by: Magnesium Hydroxide (Milk Of Magnesia) 30 ml PO DAILY PRN PRN PRN Reason: Constipation Melatonin (Melatonin) 3 mg PO QHS PRN PRN PRN Reason: INSOMNIA Last Admin: 11/29/19 21:06 Dose: 3 mg Documented by: Nitroglycerin (Nitrostat) 0.4 mg SUBLINGUAL Q5M PRN PRN Reason: CARDIAC/CHEST PAIN Ondansetron HCl (Zofran) 4 mg IV Q8H PRN PRN PRN Reason: NAUSEA/VOMITING Oxycodone HCl (Oxyir) 5 mg PO Q4H PRN PRN PRN Reason: Pain Score 4-5/10 Pantoprazole Sodium (Protonix) 20 mg PO BID [facility] Last Admin: 11/30/19 08:44 Dose: 20 mg Documented by: Prochlorperazine Edisylate (Compazine Iv) 5 mg IV Q4H PRN PRN PRN Reason: Breakthrough Nausea/Vomiting Psyllium Hydrophilic Mucilloid (Metamucil) 1 packet PO DAILY PRN PRN PRN Reason: Constipation Senna/Docusate Sodium (Senokot-S, Sharron-Colace) 2 tablet PO BID PRN PRN PRN Reason: Constipation Sodium Chloride () 10 - 40 ml IV UD PRN PRN Reason: SALINE FLUSH Last Admin: 11/29/19 21:00 Dose: 10 ml Documented by: Throat Lozenges (Cepacol Sore Throat Lozenge) 1 lozenge MUCOUS MEM Q2H PRN PRN PRN Reason: SORE THROAT Tizanidine HCl (Zanaflex) 4 mg PO DAILY [facility] Last Admin: 11/30/19 08:45 Dose: 4 mg Documented by: Warfarin Sodium (Coumadin (Pbkc)) 2.5 mg PO DAILY@1700 [facility] Last Admin: 11/29/19 16:13 Dose: 2.5 mg Documented by: Medical Necessity - Tobacco Use Smoking Status: Never smoker Tobacco Use: Non-smoker Assessment/Plan All Active Problems (Last Updated 11/26/19 @ 15:11 by Winifred Landry) Severe sepsis (Ruled-out) Acute respiratory failure with hypoxia (Acute) Pneumonia (Acute) Hemoptysis (Acute) FILIPE (acute kidney injury) (Ruled-out) Ventricular tachycardia (Acute) Non-ST elevation (NSTEMI) myocardial infarction (Acute) History of myocardial infarction (Acute) Atrioventricular block (Acute) Premature ventricular contraction (Acute) RECOMMENDATIONS: 1. Continue Zosyn to complete a 10-day course 2. Continue Lasix. 3. Agree with systemic anticoagulation. 4. Wean supplemental oxygen to maintain saturations at or above 90%. 5. Encourage incentive spirometer use and mobilize patient as tolerated. 6. Continue nocturnal BiPAP therapy. Outpatient polysomnogram 7. Patient should follow-up in our office 2 weeks after discharge if willing to establish care IMPRESSIONS: 1. Acute hypoxemic respiratory failure Presentation is likely multifactorial in etiology with concern for underlying healthcare associated pneumonia and component of heart failure as well. The patient's last known ejection fraction was 35% in May 2019. He was recently discharged from [facility] after having a stent placed in his RCA. Noncontrasted chest CT did reveal evidence of a left lower lobe airspace opacity with associated effusion along with a small right pleural effusion. Recommend continuing Zosyn and diuretic therapy. Patient was able to tolerate ambulation without supplemental oxygen. Continue to encourage incentive spirometer. Consider obtaining BMP for tomorrow to check electrolytes and renal function. 2. Known history of coronary artery disease/indeterminant troponin/paroxysmal atrial fibrillation/chronic systolic heart failure The patient is to remain on aspirin and Plavix, given recent stent placement. He was previously being bridged from therapeutic Lovenox to Coumadin due to his atrial dysrhythmia. Systemic anticoagulation has been resumed. Continue Lasix as ordered. 3. History of obstructive sleep apnea The patient does report compliance with the use of nocturnal Pap therapy. However, it is unclear whether he is prescribed nocturnal BiPAP or CPAP therapy. Therefore, the patient will be continued on empiric BiPAP therapy on a nightly basis while admitted to the hospital. 4. Hypothyroidism/hyperlipidemia/GERD/diabetes mellitus Complicates care, management, recovery and prognosis. Continue home medications as indicated. Code Visit Inpatient E&M: 48456 Subs Hosp L2
--- NOTE | 2019-11-30 14:46 | CHAPLAIN ---
Type of Pastoral Visit _x__ Initial Visit ___ Follow-up Visit ___ On-call Visit ___ General Patient Visit ___ Spiritual Assessment ___ Family Conference ___ Bereavement ___ Rapid Response ___ Code Blue ___ Other (describe below) Pastoral Care Referral From _x__ Patient _x__ Family ___ Nurse ___ Physician ___ Card Lacer Jacquard ___ Machine Set Up Technician ___ Other (describe below) Sacrament/Intervention _x__ Active listening ___ Anointing ___ Islam ___ Bereavement ___ Communion ___ Karin exploration ___ _x__ Life review _x__ Prayer ___ Reconciliation ___ Sacrament of Sick _x__ Supportive presence ___ Wedding ___ Other (describe below) Pastoral Comments
--- NOTE | 2019-11-30 15:37 | CASEMGMT ---
Addendum entered by Kayla Reilly 11/30/19 16:59: is aware that [facility] has not called this RN CM back regarding referral and that this RN CM will notify her if for some reason [facility] cannot take pt, voices understanding. is not sure of a 2nd choice for HHC at this time. This RN CM to follow. Darnell DYKES CM Original Note: This RN CM back to room to see if pt/ have decided on HHC agency and is not at bedside at this time. Pt states that his is making that decision at this time. Call to and she states that they would like [facility] at this time. Referral faxed to [facility] for SN, PT/OT at this time and call to [facility] intake to notify of referral, voices understanding. Darnell DYKES CM
--- NOTE | 2019-11-30 16:09 | DCINST_ITS ---
- Discharge Diagnoses Current Active Problems: Current Active and Chronic Problems (Last Updated 11/26/19 @ 15:11 by Winifred Landry) Acute respiratory failure with hypoxia (Acute) Pneumonia (Acute) Hemoptysis (Acute) You will use the following diet at home:: Calorie/Carbohydrate Controlled (specify 1200, 1400, etc) - 1800 Your food should be the consistency of: Regular Your liquids should be the consistency of: Regular/Thin Discharge Activity: Return to Normal Activity Weight Bearing Status: Full weight bearing Allergies/Adverse Reactions: Allergies Iodine and Iodide Containing Produc Adverse Reaction (Severe, Verified 11/27/19 19:21) Diarrhea metformin Adverse Reaction (Verified 11/27/19 19:21) Upset Stomach niacin Adverse Reaction (Verified 11/27/19 19:21) Other Medications to take at Discharge Allopurinol [Zyloprim] 100 mg PO DAILYCM 11/27/19 Amiodarone HCl [Cordarone] 400 mg PO DAILY 11/27/19 Aspirin 81 mg PO DAILY 11/27/19 Calcium Citrate 950 mg PO DAILY 11/27/19 Carvedilol [Coreg (Beta Tiesha)] 12.5 mg PO BID 11/27/19 Cholecalciferol (VIT D3) [Vitamin D3] 1,000 unit PO DAILY 11/27/19 Clopidogrel Bisulfate [Clopidogrel] 75 mg PO DAILY 11/27/19 Colestipol Tablet [Colestid Tablet] 1 gm PO BID 11/27/19 Fenofibrate,Micronized [Fenofibrate] 200 mg PO DAILY 11/27/19 Folic Acid 2 mg PO DAILY@0800 11/27/19 Gabapentin [Neurontin] 400 mg PO TIDCM 11/27/19 Glimepiride [Amaryl] 4 mg PO DAILY 11/27/19 Insulin Glargine [Lantus SoloStar Pen] 27 units SUBCUT BID 11/27/19 Insulin Lispro [Humalog] 0 unit SQ 11/27/19 Levothyroxine [Synthroid] 75 mcg PO DAILY 11/27/19 Lisinopril [Zestril] 2.5 mg PO DAILY 11/27/19 Nitroglycerin 0.4 mg SL Q5M MDD 3 11/27/19 Pantoprazole Sodium [Protonix] 40 mg PO DAILY 11/27/19 Rosuvastatin Calcium [Crestor] 20 mg PO DAILY 11/27/19 Tizanidine HCl [Zanaflex] 4 mg PO DAILY 11/27/19 Amox/Clavulanate Tablet [Augmentin Tablet] 875 mg PO BIDCM #13 tab 11/30/19 Furosemide [Lasix] 60 mg PO DAILY #1 tablet 11/30/19 Warfarin [Coumadin] 2.5 mg PO DAILY@1700 #30 tab 11/30/19 The following prescriptions were given: Amox/Clavulanate Tablet [Augmentin Tablet] 875 mg PO BIDCM #13 tab Transmission Status: Pending to [facility] Warfarin [Coumadin] 2.5 mg PO DAILY@1700 #30 tab Transmission Status: Pending to [facility] Furosemide [Lasix] 60 mg PO DAILY #1 tablet Primary Care Physician: Angel Lang MD [Primary Care Provider] - Please follow up with your Primary Care Physician in: in 2 weeks Test Results: Test results from this visit will be discussed in further detail at your follow- up appointment, if applicable. Please Follow Up With: Juan Manuel Wilkinson MD When: next appointment
--- NOTE | 2019-12-01 11:18 | DS.PCM_ITS ---
Discharge Date and Diagnosis Date of Admission: 11/27/19 Date of Discharge: 11/30/19 - Primary Discharge Diagnosis #1 acute hypoxic respiratory failure secondary to healthcare acquired pneumonia #2 left mid and lower lobe healthcare acquired pneumonia #3 paroxysmal atrial fibrillation #4 hemoptysis-etiology unclear #5 coronary artery disease with recent PCI and right coronary artery stent placement #6 type 2 diabetes #7 obstructive sleep apnea #8 essential hypertension #9 lactic acid elevation probably secondary to hypoxic respiratory failure #10 dehydration #11 Acute on chronic systolic congestive heart failure #12 elevated troponin-probably secondary to recent cardiac intervention #13 ischemic cardiomyopathy - Secondary Discharge Diagnosis Chronic Problems (Last Updated 11/26/19 @ 15:11 by Winifred Landry) Presence of stent of bypass graft (Chronic ~11/23/19) PCI/FEDERICO to the SVG to RCA @[facility] 11/23/19 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 (Chronic ~04/20/02) Paroxysmal atrial fibrillation (Chronic) Type 2 diabetes mellitus (Chronic) Paroxysmal ventricular tachycardia (Chronic) Aortocoronary bypass status (Chronic ~06/18/96) CABG x3 - KO to diag, SVG to RCA and SVG to RCA 06/18/1996 Chronic systolic congestive heart failure (Chronic) Ischemic cardiomyopathy (Chronic) Atherosclerotic heart disease of [place] coronary artery without angina pectoris (Chronic) CABG x3 - KO to diag, SVG to RCA and SVG to RCA 06/18/1996 terminal carman (current) use of anticoagulants (Chronic) History of atrial fibrillation (Chronic) CKD (chronic kidney disease), stage III (Chronic) History of DVT (deep vein thrombosis) (Chronic) Upper Extremity HLD (hyperlipidemia) (Chronic) Hospital Course and Treatment Operations: None Procedures: None Summary of Care Provided: The patient is a 79 year old M seen in the emergency room at [facility] with a chief complaint of shortness of breath and hemoptysis, the patient recently been admitted to [facility] and had a cardiac stent placed, he has a history of type 2 diabetes, and coronary artery disease. It was noted that the patient also had to be defibrillated for V. tach while at [facility]. Work-up in the emergency room included a chest x-ray which showed pulmonary vascular prominence with trace edema, left base atelectasis or small infiltrate was noted to be present, there is a small left pleural effusion, mild cardiomegaly was noted to be present. Patient CBC was remarkable for hemoglobin of 14.1, white blood cell count was elevated at 11.5. Patient's INR was 1.8, chemistry profile was remarkable for creatinine of 1.63, lactic acid was 2.9. Patient's troponin was elevated at 0.192-this was felt to be secondary to his recent coronary intervention. Patient's beta natruretic peptide was elevated at 287.4. Patient was placed on high flow oxygen and then eventually on BiPAP in the emergency room, he was admitted to ICU and treated with IV antibiotics and his diuretics were held. He was seen in consultation by critical care, is felt that the patient could possibly have a healthcare acquired pneumonia with un derlying acute on chronic systolic CHF. When the admitting diagnosis was acute kidney injury but this examiner felt that the patient had dehydration not acute kidney injury. CT scan of the chest was performed, it showed a left mid and lower lung infiltrate. Patient improved during his stay in the ICU his oxygen was weaned downward and he was transferred to PCU. His diuretics were restarted and eventually he was weaned down to room air. Patient was seen by PT and OT, at times he refused physical therapy services. Patient had no episodes of hemoptysis while in the hospital, his Coumadin was eventually restarted in the hospital. On 11/30/2019, patient was seen and examined: On examination he appeared in good health and spirits. Vital signs as documented. Skin warm and dry and without ov ert rashes. Neck without JVD. Lungs clear. Heart exam notable for regular rhythm, normal sounds and absence of murmurs, rubs or gallops. Abdomen unremarkable and without evidence of organomegaly, masses, or abdominal aortic enlargement. Extremities nonedematous. Neuro: Cranial nerves II through XII are grossly intact, no focal motor deficits were noted, sensation to light touch and pinprick intact. Psych: Patient is alert and oriented x3, he does not appear anxious or depressed On 11/30/2019, patient was seen and examined and felt to be in stable condition for discharge home - Physical Exam Vitals/I&O's: Vital Signs Temp Pulse Resp BP Pulse Ox 98.5 F 73 16 98/60 94 11/30/19 14:42 11/30/19 14:42 11/30/19 14:42 11/30/19 14:42 11/30/19 14:42 Oxygen Flow Rate (L/min) 2 Oxygen Delivery Method Room Air Weight: 94.3 kg Body Mass Index (BMI) 31.3 Finger Stick Blood Glucose 190 Intake and Output for Last 24 Hours 11/29/19 11/30/19 12/01/19 23:59 23:59 23:59 Intake Total 1858.08 / 1858.08 557.92 / 557.92 Output Total 1815 / 1815 1200 / 1200 Balance 43.08 / 43.08 -642.08 / -642.08 Microbiology Past 72 Hours 11/27/19 19:25 Blood Culture (Wb) - Anticubital Right Blood Culture - Preliminary No growth in 48 hours. 11/27/19 19:15 Blood Culture (Wb) - Anticubital Left Blood Culture - Preliminary No growth in 48 hours. Laboratory Results 11/30/19 11:26: POC Glucose 140 H Discharge Activity: Return to Normal Activity Weight Bearing Status: Full weight bearing Home Medications: Medications to take at Discharge Allopurinol [Zyloprim] 100 mg PO DAILYCM 11/27/19 Amiodarone HCl [Cordarone] 400 mg PO DAILY 11/27/19 Aspirin 81 mg PO DAILY 11/27/19 Calcium Citrate 950 mg PO DAILY 11/27/19 Carvedilol [Coreg (Beta Tiesha)] 12.5 mg PO BID 11/27/19 Cholecalciferol (VIT D3) [Vitamin D3] 1,000 unit PO DAILY 11/27/19 Clopidogrel Bisulfate [Clopidogrel] 75 mg PO DAILY 11/27/19 Colestipol Tablet [Colestid Tablet] 1 gm PO BID 11/27/19 Fenofibrate,Micronized [Fenofibrate] 200 mg PO DAILY 11/27/19 Folic Acid 2 mg PO DAILY@0800 11/27/19 Gabapentin [Neurontin] 400 mg PO TIDCM 11/27/19 Glimepiride [Amaryl] 4 mg PO DAILY 11/27/19 Insulin Glargine [Lantus SoloStar Pen] 27 units SUBCUT BID 11/27/19 Insulin Lispro [Humalog] 0 unit SQ 11/27/19 Levothyroxine [Synthroid] 75 mcg PO DAILY 11/27/19 Lisinopril [Zestril] 2.5 mg PO DAILY 11/27/19 Nitroglycerin 0.4 mg SL Q5M MDD 3 11/27/19 Pantoprazole Sodium [Protonix] 40 mg PO DAILY 11/27/19 Rosuvastatin Calcium [Crestor] 20 mg PO DAILY 11/27/19 Tizanidine HCl [Zanaflex] 4 mg PO DAILY 11/27/19 Amox/Clavulanate Tablet [Augmentin Tablet] 875 mg PO BIDCM #13 tab 11/30/19 Furosemide [Lasix] 60 mg PO DAILY #1 tab 11/30/19 Warfarin [Coumadin] 2.5 mg PO DAILY@1700 #30 tab 11/30/19 Following Prescrptions Were Given to Patient: Amox/Clavulanate Tablet [Augmentin Tablet] 875 mg PO BIDCM #13 tab Transmission Status: Re[facility] by [facility] Warfarin [Coumadin] 2.5 mg PO DAILY@1700 #30 tab Transmission Status: Received by [facility] Furosemide [Lasix] 60 mg PO DAILY #1 tab Primary Care Physician: Angel Lang MD [Primary Care Provider] - Please follow up with your Primary Care Physician in: in 2 weeks Please Follow Up With: Juan Manuel Wilkinson MD When: next appointment Disposition: Home with Home Health Minutes spent on discharge:: 32 Patient Condition:: Stable Medical Necessity - Tobacco Use Smoking Status: Never smoker Tobacco Use: Non-smoker Meaningful Use Info Meaningful Use Diagnoses (Choose all that apply): CHF - CHF NATA/ARB ordered at discharge?: Yes Documented LVEF (%): 35 Code Visit Inpatient E&M: 44785 Disch Hosp
--- NOTE | 2019-12-01 11:41 | CASEMGMT ---
This RN CM had received a message from [facility] stating that they are affiliated with [facility] now and that [facility] cannot take pt at this time but that [facility] can and they wanted to make sure pt/ were still ok with that. Call to pt's and she is agreeable to [facility] at this time. This RN CM complete RN CM F/U phone call at this time as well. states that pt has been 'doing pretty good' since discharge but 'is still SOB at times'. states she already spoke with PCP office and went over d/c instructions and meds with them at this time. states no questions regarding d/c instructions or medications at this time. states pt scheduled to see Dr. Wilkinson tomorrow and Dr. Lang on and they plan to keep appt's. does state some concerns with therapy not getting pt up initially while in ICU and she feels this made pt weaker for discharge. This RN CM advised her that sometimes pt condition prevents therapy from getting up and that this RN CM would discuss with therapy regarding same, voices understanding. voices no further questions/concerns/needs at this time. This RN CM placed call to [facility] to notify that pt/ are agreeable and [place] states they will do start of care tomorrow. D/C summ/instructions faxed to [facility] at this time. [facility] voices no further questions/concerns/needs at this time. Darnell RN CM
== END 2019-11-30 17:09 | disposition home health service (06) | DRG 193 ==
LOC: ED 19:33 → ICU 20:58 → PCU 11-30 06:18 → ICU 11-30 09:35 → PCU 11-30 09:35
PROVIDERS: Admitting Provider Family Medicine; Emergency Provider Emergency Medicine; PCP Family Medicine; Visit Provider Internal Medicine
DX: J18.9 Pneumonia, unspecified organism (principal); J96.01 Acute respiratory failure with hypoxia; I50.23 Acute on chronic systolic (congestive) heart failure; R04.2 Hemoptysis; Y95 Nosocomial condition; I48.0 Paroxysmal atrial fibrillation; I25.10 Atherosclerotic heart disease of native coronary artery without angina pectoris; G47.33 Obstructive sleep apnea (adult) (pediatric); E86.0 Dehydration; I25.5 Ischemic cardiomyopathy; E78.5 Hyperlipidemia, unspecified; I11.0 Hypertensive heart disease with heart failure; E03.9 Hypothyroidism, unspecified; K21.9 Gastro-esophageal reflux disease without esophagitis; E11.40 Type 2 diabetes mellitus with diabetic neuropathy, unspecified; Z86.718 Personal history of other venous thrombosis and embolism; Z79.4 Long term (current) use of insulin; Z95.5 Presence of coronary angioplasty implant and graft; Z79.01 Long term (current) use of anticoagulants; Z95.1 Presence of aortocoronary bypass graft
CPT/HCPCS: 36415; 36600; 71045; 71250; 80048; 80202; 82803; 82962; 83605; 83735; 83880; 84484; 85025; 85610; 85730; 87040; 87449; 87633; 87804; 93005; 94002; 94003; 94640; 97110; 97162; 97166; 97530; 97535; 97802; 99285; J7030; J7050; A4216; J2405

== ENCOUNTER 2019-12-01 17:29 | Emergency (ER) | payer MEDICARE, BC, SELFPAY ==
[2019-11-27 20:59] VITALS: BMI 31.3
[2019-12-01 17:31] VITALS: BP 152/83; PULSE 88; RESP 18; TEMP 36.4; O2SAT 96; BMI 31.1
--- NOTE | 2019-12-01 18:01 | CT_ITS ---
STUDY: CT ABDOMEN AND PELVIS WITHOUT CONTRAST REASON FOR EXAM: Male, 79 years old. Abdominal pain. Constipation for 4 days. Discharge yesterday from hospitalization for pneumonia. RADIATION DOSAGE (If Supplied By Facility): CTDIvol = ( 16.09 ) mGy, DLP = ( 924.42 ) mGycm TECHNIQUE: Transaxial images were obtained from the dome of the diaphragm to the symphysis pubis without oral contrast, and without intravenous contrast. Sagittal and coronal images were reconstructed. Individualized dose optimization techniques were used for this CT. COMPARISON: CT of the chest, November 28, 2019. CT of the abdomen, March 05, 2011. FINDINGS: There is a moderate left pleural effusion with left lower lobe atelectasis versus infiltrate. There is a masslike area in the left lower lobe measuring 4.9 x 5.2 x 5.6 cm. This appears unchanged in size from the prior study. There is a decreased right pleural effusion . Calcified granuloma is seen in the right lung base. The visualized portions of the heart are within normal limits. Pacer leads are seen in the right heart. There is evidence of CABG procedure. Normal liver. Small gallstone near the neck of the gallbladder. The gallbladder is otherwise unremarkable. There are multiple benign calcified granulomata of the spleen. There is diffuse atrophy of the pancreas. Normal adrenal glands. There is a 2.7 x 3.8 x 3 cm cyst in the lower pole of the right kidney. Normal right ureter. Normal left kidney. Normal left ureter. Stomach is poorly distended but otherwise unremarkable. Normal small intestine. Is increased feces throughout the colon without mass or obstruction. The appendix is visualized and appears normal. There is diffuse atherosclerotic calcification of the abdominal aorta, without a demonstrated aneurysm. Normal inferior vena cava. Normal retroperitoneum. Normal urinary bladder. Normal prostate. There is no pelvic lymphadenopathy. No free air or free fluid is seen within the peritoneal cavity. Is mild stranding of subcutaneous fat in the abdominal wall. There are small nodular densities suggesting subcutaneous injection sites. There are diffuse degenerative changes of the visualized lumbar spine. CT/Abdomen/Pelvis without Cont IMPRESSION: 1. Moderate to large left pleural effusion and atelectasis. There is a masslike area in the left lower lobe unchanged from the recent chest CT. 2. Decreasing small right pleural effusion. 3. Stable cardiac pacemaker and evidence of CABG procedure. 4. Gallstone without acute cholecystitis. 5. Increased colonic feces consistent with constipation. 6. No other major interval change. Electronically Signed: Zeferino Jimenez DO at 19:33 EST Tel [phone], Service support ,
[2019-12-01 18:50] LABS: Absolute Lymphocyte Count 0.73 X10^3/uL (0.83-4.51); Absolute Neutrophil Count 10.4 X10^3/uL (2.0-7.7); Basophil# 0.06 X10^3/uL; Basophil% 0.5 % (0-1); Eosinophil# 0.18 X10^3/uL; Eosinophils% 1.4 % (0-5); Hematocrit 34.8 % (40-54); Hemoglobin 11.3 g/dL (13.0-16.5); Lymphocyte # 0.73 X10^3/ul (4.0); Lymphocyte % 5.9 % (19-41); Mean Corp Hgb Conc 32.5 g/dL (32-36); Mean Corpuscular Hgb 31.4 pg (27.0-32.0); Mean Corpuscular Volume 96.7 fL (80-94); Mean Platelet Vol. 11.1 fl (6.2-12.0); Monocyte# 0.95 X10^3/uL; Monocyte% 7.6 % (0-10); NRBC Flagged by Analyzer 0 % (0-5); Neutrophil # 10.43 X10^3/uL (2.7-7.7); Neutrophil % 83.9 % (47-70); Platelet Count 296 K/mm3 (150-450); RBC Distribution Width CV 13.6 % (11.6-14.6); RBC Distribution Width SD 48.7 fl (35.1-43.9); White Blood Count 12.4 K/mm3 (4.4-11.0)
[2019-12-01] MEDS: 0.9% Normal Saline 1,000 ML 150 ML IV (18:58)
[2019-12-01 19:06] LABS: Anion Gap 7 (5-15); BUN 24 mg/dL (7-18); BUN/Creat Ratio 17.6 RATIO (10-20); Calcium,Total 8.9 mg/dL (8.5-10.1); Chloride 103 mmol/L (98-107); Creatinine, Serum 1.36 mg/dL (0.70-1.30); EST Glomerular Filtration Rate 53 mL/min (>60); Est Glom Filt Rate - Afr Amer 65 mL/min (>60); Estimated Creatinine Clearance 39.83 ml/min; Glucose 129 mg/dL (74-106); Potassium 4.3 mmol/L (3.5-5.1); Sodium Level 136 mmol/L (136-145)
--- NOTE | 2019-12-01 19:46 | ED.VISSUMM ---
- ER Visit Summary Date of Service: 12/01/19 Chief Complaint: [Constipation] History of Present Illness: The patient is a 79 M [presents to the emergency department with constipation and lack of bowel movement for about 5 days. Patient states that he was just recently admitted to the hospital and discharged yesterday after being admitted for pneumonia. Patient still on an antibiotic currently. He describes some lower abdominal discomfort that started this morning. Patient feels like he needs to have a bowel movement but cannot. Patient has history of coronary artery disease, CHF, diabetes, history of A. fib, history of DVT, history of V. tach. Patient does have an implantable cardioverter. Patient has had prior CABG. He denies any blood in stool or black tarry stool.] Physical Examination: [HEENT-PERRLA, EOMI. Cranial nerves II through XII grossly intact. TMs clear. Mucous membranes moist. No adenopathy. Cardiovascular-regular rate and rhythm without murmur or ectopy Lungs-clear to auscultation, chest wall stable without crepitus or subcu emphysema Abdomen-normoactive bowel sounds, soft. Patient has diffuse tenderness over the lower abdomen and the suprapubic region. Patient has some tenderness in the left lower quadrant. There is no rebound, rigidity, or pedal signs. Rectal exam-patient had large amount of hard stool within the rectal vault that was manually disimpacted. Extremities-intact ?4, normal range of motion, normal pulses, atraumatic] Test Results: [CBC with differential obtained showed a white count of 12.4, hemoglobin 11, hematocrit 35, placed to 96. Chemistries unremarkable. INR was 2.0. CT scan of the abdomen pelvis without contrast showed moderate left pleural effusion which was present there on chest CT dated November 28, 2019. Patient also noted to have findings consistent with constipation. No bowel obstruction.] Emergency Department Course and Treatment: [Patient was given soapsuds enema when he had large results with that. Patient was feeling significantly improved.] Treatment Plan: [I advised patient on MiraLAX daily for the next 2 weeks. ] Disposition: [Discharged home in stable condition] Impression: [Constipation-resolved Rectal impaction-resolved] This note was generated with [employer] software. It may contain incorrect words, spelling, and punctuation that were not noted in review of the chart prior to signing ED Disposition - Plan for ED Patient: Referrals: Angel Lang MD [Primary Care Provider] -
[2019-12-01 20:25] VITALS: BP 150/83; PULSE 90; RESP 16; O2SAT 93
--- NOTE | 2019-12-01 20:27 | ED.DEP ---
ED Disposition - Plan for ED Patient: Instructions: CONSTIPATION (Adult) Referrals: Angel Lang MD [Primary Care Provider] - 3-5 Days Additional Instructions: take daily miralax for next two weeks
[2019-12-01 21:05] VITALS: BP 150/83; PULSE 90; RESP 16; O2SAT 93
== END 2019-12-01 21:20 | disposition home or self-care (01) ==
PROVIDERS: Emergency Provider Emergency Medicine; PCP Family Medicine
DX: K56.49 Other impaction of intestine (principal); K59.00 Constipation, unspecified; J90 Pleural effusion, not elsewhere classified; I25.10 Atherosclerotic heart disease of native coronary artery without angina pectoris; I50.9 Heart failure, unspecified; E11.9 Type 2 diabetes mellitus without complications; I48.91 Unspecified atrial fibrillation; I47.2 Ventricular tachycardia; I25.2 Old myocardial infarction; Z87.01 Personal history of pneumonia (recurrent); Z86.19 Personal history of other infectious and parasitic diseases; Z86.718 Personal history of other venous thrombosis and embolism; Z95.810 Presence of automatic (implantable) cardiac defibrillator; Z79.4 Long term (current) use of insulin; Z79.02 Long term (current) use of antithrombotics/antiplatelets; Z79.82 Long term (current) use of aspirin; Z79.84 Long term (current) use of oral hypoglycemic drugs; Z79.01 Long term (current) use of anticoagulants; Z79.899 Other long term (current) drug therapy
CPT/HCPCS: 74176; 80048; 85025; 85610; 96360; 96361; 99285; J7030

== ENCOUNTER 2019-12-01 22:48 | Inpatient (IN) | payer MEDICARE, BC, SELFPAY ==
[2019-12-01] VITALS (9 sets, daily range): BP systolic 132–195; BP diastolic 82–119; PULSE 84–91; RESP 12–28; TEMP 36.6; O2SAT 93–96; BMI 31.1; BMI 32.9; BMI 33.1
--- NOTE | 2019-12-01 22:57 | RAD_ITS ---
STUDY: X-RAY CHEST REASON FOR EXAM: Male, 79 years old. Increasing shortness of breath. TECHNIQUE: Single AP portable view of the chest. COMPARISON: November 29, 2019. FINDINGS: There is increasing perihilar interstitial prominence with atelectasis versus infiltrate the right lung base. There is also increasing density along the left heart margin. Left pleural effusion cannot be ruled out. The heart remains enlarged with evidence of cardiac pacemaker and prior median sternotomy. Normal mediastinum and dorene. Normal visualized pulmonary arteries. Normal visualized aortic arch and descending thoracic aorta. No visualized osseous changes. There is no demonstrated abnormality of the visualized soft tissue structures of the upper abdomen. RAD/Chest 1 View (Portable) IMPRESSION: Increasing bilateral pulmonary infiltrates Electronically Signed: Zeferino Jimenez DO at 23:23 EST Tel [phone], Service support ,
--- NOTE | 2019-12-01 22:57 | EKG12_ITS ---
Test Reason : SOB Blood Pressure : / mmHG Vent. Rate : 091 BPM Atrial Rate : 087 BPM P-R Int : 000 ms QRS Dur : 182 ms QT Int : 446 ms P-R-T Axes : 000 189 -19 degrees QTc Int : 548 ms Ventricular-paced rhythm Biventricular pacemaker detected Abnormal ECG Confirmed by JEZ HASSAN ([id number]), photograph editor DEEDEE KRAMER ([id number]) on 12/03/2019 9:35:44 AM Referred By: GIOVANNA Confirmed By:JEZ HASSAN
[2019-12-01 23:01] LABS: Bedside Glucose 149 mg/dL (70-110)
--- NOTE | 2019-12-01 23:04 | ED.DCSUM_ITS ---
History of Present Illness Chief Complaint: Shortness of Breath Informant: Patient, Spouse/S.O. Onset: Today Activity at onset: Rest Quality: Dyspnea on exertion Worsened by: Nothing Relieved by: Oxygen Narrative: Patient is a 79-year-old male with extensive past medical history including coronary artery disease, ventricular tachycardia and was actually just discharge d from the hospital yesterday for sepsis secondary to healthcare associated pneumonia. Patient was seen in the ER earlier today for constipation which was evaluated and treated. He was discharged home and was feeling much better. While he was home he was sitting down and suddenly became very short of breath. The then called EMS. Patient was 83% on room air when EMS arrived. Patient does not wear oxygen at baseline. Patient was then transferred to the emergency room. Patient denies any chest pain. He is complained of shortness of breath. He denies any abdominal pain. Patient had a CT scan of the abdomen performed earlier today which showed a moderate left pleural effusion which was also present 3 days ago. Past Medical History - Allergies and Home Meds Allergies/Adverse Reactions: Allergies Iodine and Iodide Containing Produc Adverse Reaction (Severe, Verified 12/01/19 17:31) Diarrhea metformin Adverse Reaction (Verified 12/01/19 17:31) Upset Stomach niacin Adverse Reaction (Verified 12/01/19 17:31) Other Past Medical History: - - History of A. fib, history of DVT, ischemic cardiomyopathy, coronary artery disease, struct of sleep apnea, history of V. tach, diabetes mellitus type 2, hypertension Surgical History: coronary bypass surgery, - - Pacemaker/AICD, tonsillectomy, CABG x3, PCI. Lives: Spouse/ Significant Other Smoking Status: Unknown if ever smoked - Family History Maternal Family History: Family History (Last Reviewed 12/02/19 @ 01:42 by Sonu Dunn MD) Father Myocardial infarction Family History: Reports: High Cholesterol, Heart Disease, Hypertension Paternal Family History: Family History (Last Reviewed 12/02/19 @ 01:42 by Sonu Dunn MD) Father Myocardial infarction Family History: Reports: High Cholesterol, Heart Disease, Hypertension Review of Systems General: Reports: Sweats. Denies: Chills, Fever Eyes: Denies: Visual changes - bilaterally, Diplopia ENT: Denies: Rhinorrhea, Sore throat Cardiovascular: Denies: Chest pain, Palpitations Respiratory: Reports: Dyspnea, Cough, Dyspnea on exertion Gastrointestinal: Reports: Constipation - Evaluated for and treated earlier today. Denies: Abdominal pain, Nausea, Vomiting, Diarrhea, Melena, Hematochezia Genitourinary: Denies: Dysuria, Hematuria, Frequency Musculoskeletal: Denies: Back pain, Extremity Pain Skin: Denies: Rash, Wounds Neurological: Denies: Headache, Weakness, Numbness Physical Exam Vital Signs/Narrative: Vital Signs Temp Pulse Resp BP Pulse Ox 12/01/19 22:55 97.8 F 91 24 H 195/119 H 93 12/01/19 22:49 97.8 F 91 24 H 195/119 H 93 Inital Vital Signs reviewed: Yes General: Well nourished, Well developed, Acute Distress Head: Normocephalic, Atraumatic Eyes: Perrl, EOMI ENT: Moist mucous membranes, No rhinorrhea Neck: Supple, Nontender, No lymphadenopathy, No JVD Cardiovascular: Regular rate, Regular rhythm, No murmurs Respiratory: Chest nontender, Rhonchi, Wheezing, Diminished - Left base, Retractions, - - Tachypneic, respiratory distress Abdomen: Soft, Nontender, Nondistended, Normal bowel sounds Back: Nontender, Normal Inspection Extremities: Nontender, No edema Skin: No rash, Diaphoresis, Pallor Neurological: Alert, Oriented x3, Cranial nerves II-XII grossly intact, Normal Strength, Normal Sensation Psychological: Normal affect, Normal Mood Diagnostic/Tx/Re-eval Chest X-Ray - ED: 1 View, Read by ED Physician, Read by Radiologist, Right Infiltrate, Left Infiltrate, Left Effusion Clinical Impression(s) from Imaging Studies Chest X-Ray 12/01/19 22:57 IMPRESSION: Increasing bilateral pulmonary infiltrates Electronically Signed: Zeferino Jimenez DO at 23:23 EST Tel [phone], Service support , Laboratory Data 12/01/19 12/01/19 12/01/19 22:55 23:00 23:00 WBC 16.4 H RBC 4.02 L Hgb 12.6 L Hct 38.9 L MCV 96.8 H MCH 31.3 MCHC 32.4 RDW Std Deviation 48.3 H RDW Coeff of Gavino 13.6 Plt Count 366 MPV 11.6 Immature Gran % (Auto) 0.700 Neut % (Auto) 84.9 H Lymph % (Auto) 7.4 L [place] % (Auto) 5.9 Eos % (Auto) 0.5 Baso % (Auto) 0.6 Absolute Neuts (auto) 13.9 H Absolute Lymphs (auto) 1.22 Nucleated RBC % 0 PT INR Sodium 136 Potassium 4.3 Chloride 104 Carbon Dioxide 22.0 Anion Gap 10 BUN 23 H Creatinine 1.39 H Estim Creat Clear Calc 38.97 Est GFR (MDRD) Af Amer 63 Est GFR (MDRD) Non-Af 52 L BUN/Creatinine Ratio 16.5 Glucose 155 H Lactic Acid Calcium 9.1 Troponin I < 0.015 B-Natriuretic Peptide POC Glucose 149 H 12/01/19 12/01/19 12/01/19 23:00 23:00 23:00 WBC RBC Hgb Hct MCV MCH MCHC RDW Std Deviation RDW Coeff of Gavino Plt Count MPV Immature Gran % (Auto) Neut % (Auto) Lymph % (Auto) [place] % (Auto) Eos % (Auto) Baso % (Auto) Absolute Neuts (auto) Absolute Lymphs (auto) Nucleated RBC % PT 23.9 H INR 2.1 Sodium Potassium Chloride Carbon Dioxide Anion Gap BUN Creatinine Estim Creat Clear Calc Est GFR (MDRD) Af Amer Est GFR (MDRD) Non-Af BUN/Creatinine Ratio Glucose Lactic Acid 2.7 H* Calcium Troponin I B-Natriuretic Peptide 714.1 H POC Glucose - Rhythm Strip Rhythm Strip: paced Rate: 91 - EKG Initial EKG Interpretation: Paced, - - Ventricular paced rhythm at a rate of 91Right axisNonspecific ST segment/T wave changes consistent with a paced rhythm Treatment - Dyspnea: Oxygen, Antibiotics, - - BIPAP Repeat Evaluation: Improved - Medical Decision Making Patient is evaluated for acute onset of respiratory distress. Patient was actually just admitted for presumed H CAP and possible CHF exacerbation. Patient was hypoxic and immediately placed on BiPAP due to work of breathing and degree of symptoms. He does have improvement with this. His O2 saturation does improve. Chest x-ray shows worsening bilateral infiltrates. His proBNP is significantly elevated from his prior admission 5 days ago. I suspect he has a CHF exacerbation with possible H CAP as well. Patient is placed on broad- spectrum antibiotics as well as IV Lasix. Patient's troponin is normal. Patient does have a leukocytosis which is actually new even compared to earlier today. His INR is therapeutic. BMP is otherwise normal.His lactate is elevated however not sure how much of that is from his hypoxia prior to arrival versus infection. Patient's creatinine does not significantly change but does show that is slightly trending up. Patient remitted to stepdown for further treatment and evaluation. He is agreeable this plan. ED Disposition - Plan for ED Patient: Disposition: Acute Care [facility] Diagnosis: Acute respiratory failure with hypoxia, Pneumonia, Acute exacerbation of CHF (congestive heart failure), Lactic acidosis
[2019-12-01 23:09] LABS: Absolute Lymphocyte Count 1.22 X10^3/uL (0.83-4.51); Absolute Neutrophil Count 13.9 X10^3/uL (2.0-7.7); Basophil% 0.6 % (0-1); Eosinophil# 0.09 X10^3/uL; Eosinophils% 0.5 % (0-5); Hematocrit 38.9 % (40-54); Hemoglobin 12.6 g/dL (13.0-16.5); Lymphocyte # 1.22 X10^3/ul (4.0); Lymphocyte % 7.4 % (19-41); Mean Corp Hgb Conc 32.4 g/dL (32-36); Mean Corpuscular Hgb 31.3 pg (27.0-32.0); Mean Corpuscular Volume 96.8 fL (80-94); Mean Platelet Vol. 11.6 fl (6.2-12.0); Monocyte# 0.97 X10^3/uL; Monocyte% 5.9 % (0-10); NRBC Flagged by Analyzer 0 % (0-5); Neutrophil # 13.89 X10^3/uL (2.7-7.7); Neutrophil % 84.9 % (47-70); Platelet Count 366 K/mm3 (150-450); RBC Distribution Width CV 13.6 % (11.6-14.6); RBC Distribution Width SD 48.3 fl (35.1-43.9); Red Blood Count 4.02 M/mm3 (4.6-6.2); White Blood Count 16.4 K/mm3 (4.4-11.0)
[2019-12-01] MEDS: Albuterol 2.5 MG/3 ML VIAL.NEB. INHALATION ×2 (23:11→23:27)
[2019-12-01 23:15] LABS: International Normalized Ratio 2.1; Prothrombin Time (Protime)PT. 23.9 SECONDS (11.7-14.9)
[2019-12-01 23:23] LABS: Anion Gap 10 (5-15); BUN 23 mg/dL (7-18); BUN/Creat Ratio 16.5 RATIO (10-20); Calcium,Total 9.1 mg/dL (8.5-10.1); Chloride 104 mmol/L (98-107); Creatinine, Serum 1.39 mg/dL (0.70-1.30); EST Glomerular Filtration Rate 52 mL/min (>60); Est Glom Filt Rate - Afr Amer 63 mL/min (>60); Estimated Creatinine Clearance 38.97 ml/min; Glucose 155 mg/dL (74-106); Potassium 4.3 mmol/L (3.5-5.1); Sodium Level 136 mmol/L (136-145)
[2019-12-01 23:31] LABS: Lactic Acid 2.7 mmol/L (0.4-1.9)
[2019-12-01 23:42] LABS: BNP,B-Type NATRIURETIC PEPTIDE 714.1 pg/mL (0-100)
--- NOTE | 2019-12-01 23:45 | HP.PCM_ITS ---
Problem List (1) Heart failure Status: Acute Qualifiers: Heart failure type: systolic History of Present Illness Date of Admission: 12/02/19 Chief Complaint: Shortness of breath The patient is a 79 year old M with a significant history of CKD stage III; congestive heart failure; CAD status post CABG and stent; permanent pacemaker and defibrillation; presenting with sudden onset shortness of breath on the same day of presentation.. Associated with symptoms is bilateral leg edema. Chest x-ray showed increased bilateral pulmonary infiltrates. Patient had leukocytosis and lactic acidosis. His BNP on admission was elevated. At the emergency part the patient received Lasix IV as well as vancomycin and Zosyn. On the same day of presentation he was at emergency department earlier on and was treated for constipation and sent home. Of note patient was admitted on 11/27/2019 and discharged on 11/30/2019 for acute hypoxemic respiratory failure secondary to healthcare acquired pneumonia; and acute on chronic systolic congestive heart failure among others. Echocardiogram on 05/27/2019 showed an ejection fraction of 85%; evidence of diastolic dysfunction. Right ventricle systolic pressure was estimated as 31 mmHg. Mild focal aortic valve calcification; trivial pulmonary valve insufficiency. Past Medical History Past Medical History (Chronic Problems): Chronic Problems (Last Reviewed 12/02/19 @ 01:41 by Sonu Dunn MD) Acute exacerbation of CHF (congestive heart failure) (Chronic) Presence of stent of bypass graft (Chronic ~11/23/19) PCI/FEDERICO to the SVG to RCA @[facility] 11/23/19 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 (Chronic ~04/20/02) Paroxysmal atrial fibrillation (Chronic) Type 2 diabetes mellitus (Chronic) Paroxysmal ventricular tachycardia (Chronic) Aortocoronary bypass status (Chronic ~06/18/96) CABG x3 - KO to diag, SVG to RCA and SVG to RCA 06/18/1996 Chronic systolic congestive heart failure (Chronic) Ischemic cardiomyopathy (Chronic) Atherosclerotic heart disease of [place] coronary artery without angina pectoris (Chronic) CABG x3 - KO to diag, SVG to RCA and SVG to RCA 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) History of atrial fibrillation (Chronic) CKD (chronic kidney disease), stage III (Chronic) History of DVT (deep vein thrombosis) (Chronic) Upper Extremity HLD (hyperlipidemia) (Chronic) Medical History: Medical History (Last Reviewed 12/02/19 @ 01:41 by Sonu Dunn MD) Ventricular tachycardia (Acute) I47.2 Non-ST elevation (NSTEMI) myocardial infarction (Acute) I21.4 Presence of stent of bypass graft (Chronic) Onset Date: ~11/23/19 Z95.828 PCI/FEDERICO to the SVG to RCA @[facility] 11/23/19 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 (Chronic) Onset Date: ~04/20/02 Z95.810 Paroxysmal atrial fibrillation (Chronic) I48.0 History of myocardial infarction (Acute) I25.2 Type 2 diabetes mellitus (Chronic) E11.9 Atrioventricular block (Acute) I44.30 Paroxysmal ventricular tachycardia (Chronic) I47.2 Premature ventricular contraction (Acute) I49.3 Chronic systolic congestive heart failure (Chronic) I50.22 Ischemic cardiomyopathy (Chronic) I25.5 Atherosclerotic heart disease of [place] coronary artery without angina pectoris (Chronic) I25.10 CABG x3 - KO to diag, SVG to RCA and SVG to RCA 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) Z79.01 History of atrial fibrillation (Chronic) Z86.79 CKD (chronic kidney disease), stage III (Chronic) History of DVT (deep vein thrombosis) (Chronic) Z86.718 Upper Extremity HLD (hyperlipidemia) (Chronic) E78.5 Hypothyroidism E03.9 YUSUF (obstructive sleep apnea) G47.33 Gout M10.9 Neuropathy G62.9 History of cardiac pacemaker Onset Date: ~07/14/01 Z95.0 Allergies Iodine and Iodide Containing Produc Adverse Reaction (Severe, Verified 12/01/19 17:31) Diarrhea metformin Adverse Reaction (Verified 12/01/19 17:31) Upset Stomach niacin Adverse Reaction (Verified 12/01/19 17:31) Other Home Medications: Ambulatory Orders Medication Instructions Recorded Allopurinol [Zyloprim] 100 mg PO DAILYCM 11/27/19 Amiodarone HCl [Cordarone] 400 mg PO DAILY 11/27/19 Aspirin 81 mg PO DAILY 11/27/19 Calcium Citrate 950 mg PO DAILY 11/27/19 Carvedilol [Coreg (Beta Tiesha)] 12.5 mg PO BID 11/27/19 Cholecalciferol (VIT D3) [Vitamin 1,000 unit PO DAILY 11/27/19 D3] Clopidogrel Bisulfate [Clopidogrel] 75 mg PO DAILY 11/27/19 Colestipol Tablet [Colestid Tablet] 1 gm PO BID 11/27/19 Fenofibrate,Micronized 200 mg PO DAILY 11/27/19 [Fenofibrate] Folic Acid 2 mg PO DAILY 11/27/19 Gabapentin [Neurontin] 400 mg PO TIDCM 11/27/19 Glimepiride [Amaryl] 4 mg PO DAILY 11/27/19 Insulin Glargine [Lantus SoloStar 27 units SUBCUT BID 11/27/19 Pen] Insulin Lispro [Humalog] 0 unit SQ ACHS 11/27/19 Levothyroxine [Synthroid] 75 mcg PO DAILY 11/27/19 Lisinopril [Zestril] 2.5 mg PO DAILY 11/27/19 Nitroglycerin 0.4 mg SL Q5M MDD 3 11/27/19 Pantoprazole Sodium [Protonix] 40 mg PO DAILY 11/27/19 Rosuvastatin Calcium [Crestor] 20 mg PO DAILY 11/27/19 Tizanidine HCl [Zanaflex] 4 mg PO DAILY 11/27/19 Amox/Clavulanate Tablet [Augmentin 875 mg PO BIDCM 12/02/19 Tablet] Furosemide [Lasix] 60 mg PO DAILY 12/02/19 Warfarin [Coumadin] 2.5 mg PO DAILY 12/02/19 Surgical History: Surgical History (Last Reviewed 12/02/19 @ 01:41 by Sonu Dunn MD) Aortocoronary bypass status (Chronic) Onset Date: ~06/18/96 Z95.1 CABG x3 - KO to diag, SVG to RCA and SVG to RCA 06/18/1996 History of cardiac radiofrequency ablation Onset Date: ~06/12/07 Z98.890 for atrial flutter @ [facility] 06/12/07 History of implantable cardioverter-defibrillator (ICD) placement Onset Date: ~07/14/01 Z95.810 History of tonsillectomy Z90.89 Surgical History: coronary bypass surgery, - - Pacemaker/AICD, tonsillectomy, CABG x3, PCI. Psychiatric History: No pertinent psych hx Smoking Status: Never smoker - *Family History Maternal Family History: Family History (Last Reviewed 12/02/19 @ 01:42 by Sonu Dunn MD) Father Myocardial infarction History Items: High Cholesterol, Heart Disease, Hypertension Paternal Family History: Family History (Last Reviewed 12/02/19 @ 01:42 by Sonu Dunn MD) Father Myocardial infarction History Items: High Cholesterol, Heart Disease, Hypertension Review of Systems Constitutional: Denies: Chills, Fever, Weight Change HEENT: Denies: Head Aches, Sinus Congestion, Sinus Drainage Cardiovascular: Reports: Edema. Denies: Chest Pain, Palpitations Respiratory: Reports: Shortness of Breath. Denies: Cough, Shortness of breath at rest, Sputum production Gastrointestinal: Denies: Abdominal Pain, Nausea, Vomiting Genitourinary: Denies: Dysuria Musculoskeletal: Denies: Joint Pain, Joint Tenderness Skin: Denies: Rash, Wounds Neurological: Denies: Numbness, Tingling, Focal weakness Psychiatric: Denies: Anxiety, Depression, Homicidal Ideations, Suicidal Ideations Hematologic/ Lymphatic: Denies: Easy Bruising, Easy Bleeding VTE Information - Inpt Only VTE Present on Admission: No VTE Mechan Device Prophylaxis: None VTE Pharm Prophylaxis ordered?: No Reason prophylaxis not ordered:: Treatment Not Indicated - Continue Coumadin for A. fib. Patient Problems: Active and Suspected Problems (Last Reviewed 12/02/19 @ 01:41 by Sonu Dunn MD) Heart failure (Acute) Lactic acidosis (Acute) Acute respiratory failure with hypoxia (Acute) Pneumonia (Acute) - Physical Exam Vitals/I&O's: Vital Signs Temp Pulse Resp BP Pulse Ox 97.8 F 85 22 H 153/91 H 96 12/01/19 22:55 12/01/19 23:27 12/01/19 23:27 12/01/19 23:20 12/01/19 23:20 Oxygen Flow Rate (L/min) 6 Oxygen Delivery Method Room Air Weight: 95.3 kg Body Mass Index (BMI) 32.9 Finger Stick Blood Glucose 190 General: Alert, Oriented x3, Cooperative HEENT: Atraumatic, PERRLA, EOMI, Normocephalic Neck: Supple, Trachea Midline Lungs: Tachypneic, - - On BiPAP; coarse lung sounds Cardiovascular: Normal S1, Normal S2, No murmurs, Irregular Rate Abdomen: Bowel Sounds Present, Soft, Non Tender Extremities: Cool, Edema Skin: No rashes, No breakdown Musculoskeletal: No Tenderness to Palpation of Joints or Extremities Neurological: Cranial nerves II-XII grossly intact Psych/Mental Status: Normal Affect, Appropriate Laboratory Results 12/01/19 22:55: POC Glucose 149 H 12/01/19 23:00: WBC 16.4 H, RBC 4.02 L, Hgb 12.6 L, Hct 38.9 L, MCV 96.8 H, MCH 31.3, MCHC 32.4, RDW Std Deviation 48.3 H, RDW Coeff of Gavino 13.6, Plt Count 366, MPV 11.6, Immature Gran % (Auto) 0.700, Neut % (Auto) 84.9 H, Lymph % (Auto) 7.4 L, [place] % (Auto) 5.9, Eos % (Auto) 0.5, Baso % (Auto) 0.6, Absolute Neuts (auto) 13.9 H, Absolute Lymphs (auto) 1.22, Nucleated RBC % 0 12/01/19 23:00: Sodium 136, Potassium 4.3, Chloride 104, Carbon Dioxide 22.0, Anion Gap 10, BUN 23 H, Creatinine 1.39 H, Estim Creat Clear Calc 38.97, Est GFR (MDRD) Af Amer 63, Est GFR (MDRD) Non-Af 52 L, BUN/Creatinine Ratio 16.5, Glucose 155 H, Calcium 9.1, Troponin I < 0.015 12/01/19 23:00: Lactic Acid 2.7 H* 12/01/19 23:00: B-Natriuretic Peptide 714.1 H 12/01/19 23:00: PT 23.9 H, INR 2.1 Assessment/Plan All Active Problems (Last Reviewed 12/02/19 @ 01:41 by Sonu Dunn MD) Heart failure (Acute) Lactic acidosis (Acute) Severe sepsis (Ruled-out) Acute respiratory failure with hypoxia (Acute) Pneumonia (Acute) Hemoptysis (Acute) FILIPE (acute kidney injury) (Ruled-out) Ventricular tachycardia (Acute) Non-ST elevation (NSTEMI) myocardial infarction (Acute) History of myocardial infarction (Acute) Atrioventricular block (Acute) Premature ventricular contraction (Acute) The patient is a 79 year old M presenting with sudden onset shortness of breath on the same day of presentation; lactic acidosis; and elevated BNP consistent with acute on chronic systolic and diastolic heart failure. Acute on chronic systolic and diastolic heart failure Weight on admission to the floor; and then daily Strict I&O's CXR independently reviewed confirms bilateral infiltrates. BNP 714.1; about tripled from previous. Received Lasix 40 mg IV at the emergency department. Continue Lasix 40 mg IV twice daily. At home patient is on Lasix p.o. Supplement potassium. Echocardiogram on 05/27/2019 showed an ejection fraction of 85%; evidence of diastolic dysfunction. Right ventricle systolic pressure was estimated as 31 mmHg. Mild focal aortic valve calcification; trivial pulmonary valve insufficiency. Monitor electrolytes and renal function Trend blood pressure Titrate diuretics and heart failure/blood pressure medications with blood pressure. Kerlix roll and anisa wrap to bilateral lower extremities Fluid restriction of 1500 mls daily 2 g cardiac diet Carvedilol and lisinopril continued. Diabetes mellitus with nephropathy and hyperglycemia Adjust home basal insulin. Continue correction scale insulin. Neutrophilic leukocytosis Likely reactive from CHF. Management as above. Continue Augmentin for recent pneumonia. Chronic A. fib Amiodarone continue Coumadin continued. CKD stage III Stable Prophylaxis On warfarin for A. fib; continued Code Visit Inpatient E&M: 49889 Init Hosp L3
[2019-12-02] VITALS (32 sets, daily range): BP systolic 74–125; BP diastolic 51–88; PULSE 70–87; RESP 12–26; TEMP 36.3–36.8; O2SAT 91–100; BMI 31.6; BMI 31.7
[2019-12-02] MEDS: 0.9% Normal Saline 1,000 ML 150 ML IV (00:04)
[2019-12-02] MEDS: Furosemide 40 MG/4 ML Vial IV ×2 (00:54→08:08)
[2019-12-02 03:03] LABS: Reflex Lactate? Y
[2019-12-02 04:01] LABS: Lactic Acid 1.4 mmol/L (0.4-1.9)
[2019-12-02 05:03] LABS: M R Staph aureus DNA By PCR Negative (Negative); Probe Check PASS; Specimen Processing Control PASS
[2019-12-02 05:47] LABS: Absolute Lymphocyte Count 0.79 X10^3/uL (0.83-4.51); Absolute Neutrophil Count 8.5 X10^3/uL (2.0-7.7); Basophil# 0.04 X10^3/uL; Basophil% 0.4 % (0-1); Eosinophil# 0.05 X10^3/uL; Eosinophils% 0.5 % (0-5); Hematocrit 32.4 % (40-54); Hemoglobin 10.5 g/dL (13.0-16.5); Lymphocyte # 0.79 X10^3/ul (4.0); Lymphocyte % 7.7 % (19-41); Mean Corp Hgb Conc 32.4 g/dL (32-36); Mean Corpuscular Hgb 31.4 pg (27.0-32.0); Mean Platelet Vol. 11.1 fl (6.2-12.0); Monocyte# 0.75 X10^3/uL; Monocyte% 7.4 % (0-10); NRBC Flagged by Analyzer 0 % (0-5); Neutrophil % 83.3 % (47-70); Platelet Count 233 K/mm3 (150-450); RBC Distribution Width CV 13.5 % (11.6-14.6); RBC Distribution Width SD 48.5 fl (35.1-43.9); Red Blood Count 3.34 M/mm3 (4.6-6.2); White Blood Count 10.2 K/mm3 (4.4-11.0)
[2019-12-02 06:06] LABS: International Normalized Ratio 2.4; Prothrombin Time (Protime)PT. 26.1 SECONDS (11.7-14.9)
[2019-12-02 06:15] LABS: Anion Gap 9 (5-15); BUN 21 mg/dL (7-18); BUN/Creat Ratio 17.8 RATIO (10-20); Chloride 107 mmol/L (98-107); Creatinine, Serum 1.18 mg/dL (0.70-1.30); EST Glomerular Filtration Rate 63 mL/min (>60); Est Glom Filt Rate - Afr Amer 76 mL/min (>60); Glucose 122 mg/dL (74-106); Potassium 3.7 mmol/L (3.5-5.1); Sodium Level 140 mmol/L (136-145)
[2019-12-02] MEDS: Levothyroxine 75 MCG Tablet PO (06:46)
[2019-12-02 06:55] LABS: Bedside Glucose 103 mg/dL (70-110)
[2019-12-02] MEDS: Glimepiride 4 MG Tablet PO (08:06)
[2019-12-02] MEDS: Folic Acid 1 MG Tablet 2 MG PO (08:06)
[2019-12-02] MEDS: Aspirin 81 MG TAB.CHEW PO (08:06)
[2019-12-02] MEDS: Gabapentin 400 MG Capsule PO (08:07)
[2019-12-02] MEDS: Amox/Clavulanate 875 MG Tablet PO ×2 (08:07→22:28)
[2019-12-02] MEDS: Allopurinol 100 MG Tablet PO (08:07)
[2019-12-02] MEDS: Amiodarone 200 MG Tablet 400 MG PO (08:07)
[2019-12-02] MEDS: Carvedilol 12.5 MG Tablet PO (08:08)
[2019-12-02] MEDS: 0.9% Saline Lock 10 ML Syringe IV (08:08)
[2019-12-02] MEDS: Calcium Carbonate 500 MG Tablet PO (08:09)
[2019-12-02] MEDS: Fenofibrate 145 MG Tablet PO (08:09)
[2019-12-02] MEDS: Clopidogrel Bisulfate 75 MG Tablet PO (08:09)
[2019-12-02] MEDS: Pantoprazole Sodium 40 MG Tablet PO (08:09)
[2019-12-02] MEDS: tiZANidine HCl 2 MG Tablet 4 MG PO (08:09)
[2019-12-02] MEDS: Lisinopril 2.5 MG Tablet PO (08:10)
[2019-12-02 11:45] LABS: Bedside Glucose 113 mg/dL (70-110)
--- NOTE | 2019-12-02 13:20 | CHAPLAIN ---
Type of Pastoral Visit _x__ Initial Visit ___ Follow-up Visit ___ On-call Visit ___ General Patient Visit ___ Spiritual Assessment ___ Family Conference ___ Bereavement ___ Rapid Response ___ Code Blue ___ Other (describe below) Pastoral Care Referral From ___ Patient _x__ Family ___ Nurse ___ Physician ___ Manufacturer ___ Counter Control Operator ___ Other (describe below) Sacrament/Intervention _x__ Active listening ___ Anointing ___ Jainism ___ Bereavement ___ Communion ___ Karin exploration ___ ___ Life review _x__ Prayer ___ Reconciliation ___ Sacrament of Sick _x__ Supportive presence ___ Wedding ___ Other (describe below) Pastoral Comments patient is on bi-pap and sleeping; offer of support given to spouse who is in the room; spouse welcomes presence and prayer of this ambulatory care coordinator
--- NOTE | 2019-12-02 15:17 | PN_ITS ---
Patient Problems: Active and Suspected Problems (Last Reviewed 12/02/19 @ 01:41 by Sonu Dunn MD) Heart failure (Acute) Lactic acidosis (Acute) Acute respiratory failure with hypoxia (Acute) Pneumonia (Acute) Reason for Visit: Follow-up on pulmonary edema Subjective: Patient was seen and examined. He received all his BP medications and has subsequently been hypotensive for most of the day. He has received three(3) 250mls IV fluid boluses. He has also been sleepy. No active complains. Vitals/I&O's: Vital Signs Temp Pulse Resp BP Pulse Ox 97.6 F L 82 16 74/51 L 94 12/02/19 14:00 12/02/19 14:56 12/02/19 14:00 12/02/19 14:00 12/02/19 14:00 Oxygen Flow Rate (L/min) 12 Oxygen Delivery Method Room Air Weight: 91.7 kg Body Mass Index (BMI) 31.6 Finger Stick Blood Glucose 190 Intake and Output for Last 24 Hours 11/30/19 12/01/19 12/02/19 23:59 23:59 23:59 Intake Total 2082.5 / 2082.5 Output Total 1900 / 1900 Balance 182.5 / 182.5 General: Alert, Oriented x3, Cooperative, - - appears fatigued HEENT: Atraumatic, PERRLA, EOMI, Normocephalic Oral: Moist Mucosa Neck: Supple Lungs: Normal air movement, Diminished, - - no crackles heard Cardiovascular: Regular rate, Regular Rhythm, Normal S1, Normal S2, No murmurs Abdomen: Bowel Sounds Present, Soft, Non Tender, Non-Distended, No Hepato- splenomegaly Extremities: No edema Skin: No rashes, No breakdown Musculoskeletal: No Tenderness to Palpation of Joints or Extremities Lymphatic: No Cervical, Supraclavicular, or Inguinal Adenopathy Neurological: Cranial nerves II-XII grossly intact, Neuro grossly intact Psych/Mental Status: Normal Affect, Appropriate Laboratory Results 12/01/19 22:55: POC Glucose 149 H 12/01/19 23:00: WBC 16.4 H, RBC 4.02 L, Hgb 12.6 L, Hct 38.9 L, MCV 96.8 H, MCH 31.3, MCHC 32.4, RDW Std Deviation 48.3 H, RDW Coeff of Gavino 13.6, Plt Count 366, MPV 11.6, Immature Gran % (Auto) 0.700, Neut % (Auto) 84.9 H, Lymph % (Auto) 7.4 L, Refugio % (Auto) 5.9, Eos % (Auto) 0.5, Baso % (Auto) 0.6, Absolute Neuts (auto) 13.9 H, Absolute Lymphs (auto) 1.22, Nucleated RBC % 0 12/01/19 23:00: Sodium 136, Potassium 4.3, Chloride 104, Carbon Dioxide 22.0, Anion Gap 10, BUN 23 H, Creatinine 1.39 H, Estim Creat Clear Calc 38.97, Est GFR (MDRD) Af Amer 63, Est GFR (MDRD) Non-Af 52 L, BUN/Creatinine Ratio 16.5, Glucose 155 H, Calcium 9.1, Troponin I < 0.015 12/01/19 23:00: Lactic Acid 2.7 H* 12/01/19 23:00: B-Natriuretic Peptide 714.1 H 12/01/19 23:00: PT 23.9 H, INR 2.1 12/02/19 03:13: Troponin I < 0.015 12/02/19 03:13: Lactic Acid 1.4 12/02/19 03:30: MRSA (PCR) Negative 12/02/19 05:30: WBC 10.2, RBC 3.34 L, Hgb 10.5 L, Hct 32.4 L, MCV 97.0 H, MCH 31.4, MCHC 32.4, RDW Std Deviation 48.5 H, RDW Coeff of Gavino 13.5, Plt Count 233, MPV 11.1, Immature Gran % (Auto) 0.700, Neut % (Auto) 83.3 H, Lymph % (Auto) 7.7 L, Refugio % (Auto) 7.4, Eos % (Auto) 0.5, Baso % (Auto) 0.4, Absolute Neuts (auto) 8.5 H, Absolute Lymphs (auto) 0.79 L, Nucleated RBC % 0 12/02/19 05:30: PT 26.1 H, INR 2.4 12/02/19 05:30: Sodium 140, Potassium 3.7, Chloride 107, Carbon Dioxide 24.0, Anion Gap 9, BUN 21 H, Creatinine 1.18, Estim Creat Clear Calc 45.90, Est GFR (MDRD) Af Amer 76, Est GFR (MDRD) Non-Af 63, BUN/Creatinine Ratio 17.8, Glucose 122 H, Calcium 8.0 L 12/02/19 06:43: POC Glucose 103 12/02/19 08:36: Troponin I < 0.015 12/02/19 11:42: POC Glucose 113 H Current Medications Acetaminophen (Tylenol) 650 mg PO Q6H PRN PRN PRN Reason: Pain Score 1-10/Temp > 100.7 F [facility]) [facility] Last Admin: 12/02/19 08:07 Dose: 100 mg Documented by: Amiodarone HCl (Cordarone) 400 mg PO DAILY [facility] Last Admin: 12/02/19 08:07 Dose: 400 mg Documented by: Amoxicillin/Clavulanate Potassium (Augmentin Tablet) 875 mg PO BID [facility] Last Admin: 12/02/19 08:07 Dose: 875 mg Documented by: Aspirin (Aspirin, Baby) [facility] Last Admin: 12/02/19 08:06 Dose: 81 mg Documented by: Atorvastatin Calcium (Lipitor) 40 mg PO QHS [facility] Calcium Carbonate (Tums) 500 mg PO DAILY [facility] Last Admin: 12/02/19 08:09 Dose: 500 mg Documented by: Cholecalciferol (Vitamin D) 1,000 unit PO DAILY [facility] Last Admin: 12/02/19 08:09 Dose: 1,000 unit Documented by: Clopidogrel Bisulfate (Plavix) 75 mg PO DAILY [facility] Last Admin: 12/02/19 08:09 Dose: 75 mg Documented by: Colestipol HCl (Colestid Tablet) 1 gm PO BID [facility] Last Admin: 12/02/19 08:07 Dose: 1 gm Documented by: Fenofibrate (Tricor) 145 mg PO DAILY [facility] Last Admin: 12/02/19 08:09 Dose: 145 mg Documented by: Folic Acid (Folic Acid) [facility] Last Admin: 12/02/19 08:06 Dose: 2 mg Documented by: Furosemide (Lasix) 20 mg IV BIDLX [facility] Gabapentin (Neurontin) 400 mg PO TIDCM [facility] Last Admin: 12/02/19 11:53 Dose: Not Given Documented by: Glimepiride (Amaryl) [facility] Last Admin: 12/02/19 08:06 Dose: 4 mg Documented by: Glucagon () 1 mg IM .X1 PRN PRN Reason: Hypoglycemia Dextrose (Dextrose 10%-Water) 250 mls @ 999 mls/hr IV .Q16M PRN; Protocol PRN Reason: HYPOGLYCEMIA Sodium Chloride () 250 mls @ 15 mls/hr IV .[id number] PRN PRN Reason: Saline Flush Sodium Chloride () 250 mls @ 15 mls/hr IV .[id number] PRN PRN Reason: Additional IVPB Infusion Insulin Human Lispro (Humalog Kwikpen (Bkc)) 0 unit SC [facility]; Protocol Last Admin: 12/02/19 11:46 Dose: Not Given Documented by: Levothyroxine Sodium (Synthroid) 75 mcg PO DAILY@0600 [facility] Last Admin: 12/02/19 06:46 Dose: 75 mcg Documented by: Lisinopril (Zestril) 2.5 mg PO DAILY [facility] Last Admin: 12/02/19 08:10 Dose: 2.5 mg Documented by: Melatonin (Melatonin) 3 mg PO QHS PRN PRN PRN Reason: INSOMNIA Nitroglycerin (Nitrostat) 0.4 mg SUBLINGUAL Q5M PRN PRN Reason: CARDIAC/CHEST PAIN Ondansetron HCl (Zofran) 4 mg IV Q8H PRN PRN PRN Reason: NAUSEA/VOMITING Pantoprazole Sodium (Protonix) 40 mg PO DAILY [facility] Last Admin: 12/02/19 08:09 Dose: 40 mg Documented by: Potassium Chloride (K-Dur) [facility]q [facility] Last Admin: 12/02/19 08:07 Dose: 20 meq Documented by: Sodium Chloride () 10 - 40 ml IV UD PRN PRN Reason: SALINE FLUSH Last Admin: 12/02/19 08:08 Dose: 10 ml Documented by: Tizanidine HCl (Zanaflex) 4 mg PO DAILY [facility] Last Admin: 12/02/19 08:09 Dose: 4 mg Documented by: Warfarin Sodium (Coumadin (Pbkc)) 2.5 mg PO DAILY@1700 [facility] STROKE Vital Signs/Narrative: Vital Signs Temp Pulse Resp BP Pulse Ox 12/02/19 14:56 82 12/02/19 14:00 97.6 F L 84 16 74/51 L 94 12/02/19 12:00 97.8 F 82 18 82/59 L 98 Medical Necessity - Tobacco Use Smoking Status: Never smoker Assessment/Plan All Active Problems (Last Reviewed 12/02/19 @ 01:41 by Sonu Dunn MD) Heart failure (Acute) Lactic acidosis (Acute) Severe sepsis (Ruled-out) Acute respiratory failure with hypoxia (Acute) Pneumonia (Acute) Hemoptysis (Acute) FILIPE (acute kidney injury) (Ruled-out) Ventricular tachycardia (Acute) Non-ST elevation (NSTEMI) myocardial infarction (Acute) History of myocardial infarction (Acute) Atrioventricular block (Acute) Premature ventricular contraction (Acute) 1. Hypotension, secondary to medication side effect, SBP<80, s/p IV fluid boluses Held home BP meds, will continue to monitor 2. Acute on chronic systolic CHF, EF 35%, ischemic cardiomyopathy, was on Lasix 40mg BID Continue on Lasix 20mg IV daily 3. Recent pneumonia, continue on Augmentin 4. Paroxysmal atrial fibrillation, continue on amiodarone, INR is therapeutic on coumadin 5. CAD s/p stent in RCA, continue on aspirin, statin, fenofibrate, lasix. Lisinopril is held 6. Type 2 DM, home insulin held, continue on amaryl, Accu-Cheks with insulin sliding scale 7. YUSUF on cpap 8. DVT PPx- On coumadin Code Visit Inpatient E&M: 15933 Subs Hosp L2
[2019-12-02] MEDS: Insulin Lispro 100 UNIT/ML INSULN.PEN SC ×2 (17:03→22:21)
[2019-12-02 17:10] LABS: Bedside Glucose 182 mg/dL (70-110)
--- NOTE | 2019-12-02 17:10 | ECHOCS_ITS ---
Reason For Study: DYSPNEA/SOB Procedure This was a 2D Doppler, Color Flow transthoracic echocardiogram. The study was technically difficult. The study was technically limited. Due to patient immobility exam performed in sitting posison,. Contrast injection was performed. Exam performed portable in patient room. Left Ventricle Moderately dilated left ventricle. The estimated ejection fraction is 35 %. There is evidence of diastolic dysfunction. unable to assess for RWMA. Right Ventricle Normal RV size. There is a pacemaker lead in the right ventricle. Normal systolic function. Atria The left atrium is severely enlarged. The right atrium is not well visualized. Mitral Valve There is mild mitral annular calcification. There is no mitral valve stenosis. No mitral valve insufficiency. Tricuspid Valve There is no tricuspid stenosis. Trivial tricuspid valve insufficiency. Pulmonary artery systolic pressure is 35 mmHg. Aortic Valve Aortic sclerosis, no stenosis. There is no aortic stenosis. No aortic valve insufficiency. Pulmonic Valve The pulmonic valve is not well visualized. Great Vessels Normal aortic root. Pericardium/Pleural No pericardial effusion. Medication Diluted definity 3.0ml given slow IV push to enhance endocardial definition. MMode/2D Measurements & Calculations LVIDd: 5.6 cm IVSd: 1.4 cm Ao root diam: 3.6 cm LVIDs: 4.6 cm LVPWd: 1.3 cm RVDd: 2.6 cm FS: 17.9 % LAV(MOD-bp): 76.6 ml LA A4 area: 23.2 cm2 LA dimension(2D): 4.9 cm LAV(MOD-bp) Indexed: 37.2 ml/m2 LAV(MOD-sp2): 80.0 ml LAV(MOD-sp4): 70.9 ml RA A4 area: 18.8 cm2 Time Measurements MV dec time: 0.13 sec Doppler Measurements & Calculations MV E max dirk: 81.7 cm/sec Ao V2 max: 114.6 cm/sec LV V1 max: 50.3 cm/sec MV A max dirk: 35.9 cm/sec Ao max P.3 mmHg LV V1 max P.0 mmHg MV E/A: 2.3 PA V2 max: 87.6 cm/sec TR max dirk: 298.2 cm/sec TR max P.8 mmHg Interpretation Summary The study was technically difficult. Contrast injection was performed. The estimated ejection fraction appears to be 35 %. There is evidence of diastolic dysfunction. unable to assess for RWMA The left atrium is severely enlarged. The study was technically difficult. Contrast injection was performed. Ordering Physician: Evelyn Cash Referring Physician: Angel Lang Performed By: Junie Benton, SHMUEL, RVT
[2019-12-02 22:15] LABS: Bedside Glucose 219 mg/dL (70-110)
[2019-12-02] MEDS: Acetaminophen 325 MG Tablet 650 MG PO (22:20)
[2019-12-02] MEDS: Atorvastatin Calcium 40 MG Tablet PO (22:21)
[2019-12-03] VITALS (12 sets, daily range): BP systolic 96–132; BP diastolic 60–80; PULSE 70–86; RESP 12–20; TEMP 36.7–37.1; O2SAT 93–100
[2019-12-03 06:33] LABS: International Normalized Ratio 3.3
[2019-12-03] MEDS: Levothyroxine 75 MCG Tablet PO (06:45)
[2019-12-03 07:10] LABS: Bedside Glucose 72 mg/dL (70-110)
[2019-12-03 07:10] LABS: Bedside Glucose 68 mg/dL (70-110)
--- NOTE | 2019-12-03 08:03 | RAD_ITS ---
STUDY: X-RAY CHEST REASON FOR EXAM: Male, 79 years old. Pulmonary edema TECHNIQUE: Single AP portable view of the chest. COMPARISON: Comparison is made with prior study dated December 01, 2019. FINDINGS: EKG electrodes are seen. The CHF has almost completely cleared. Residual left pleural effusion with left basilar atelectasis persists. Sternal cerclage wires and vascular clips are present from a prior sternotomy and coronary artery bypass graft procedure (CABG). A left-sided dual-chamber pacemaker is seen. Normal mediastinum and dorene. Normal visualized pulmonary arteries. There is atherosclerotic calcification of the aortic arch with tortuosity. Normal visualized thoracic spine. Normal visualized ribs, clavicles, and shoulders. There is no demonstrated abnormality of the visualized soft tissue structures of the upper abdomen. RAD/Chest 1 View (Portable) IMPRESSION: Persistent left pleural effusion with left basilar atelectasis. The CHF has almost completely cleared. Electronically Signed: Vinnie Chen, at 13:08 EST , Service support ,
[2019-12-03] MEDS: Folic Acid 1 MG Tablet 2 MG PO (08:32)
[2019-12-03] MEDS: Glimepiride 4 MG Tablet PO (08:32)
[2019-12-03] MEDS: Allopurinol 100 MG Tablet PO (08:32)
[2019-12-03] MEDS: Aspirin 81 MG TAB.CHEW PO (08:33)
[2019-12-03] MEDS: Calcium Carbonate 500 MG Tablet PO (08:57)
[2019-12-03] MEDS: Pantoprazole Sodium 40 MG Tablet PO (08:58)
[2019-12-03] MEDS: Clopidogrel Bisulfate 75 MG Tablet PO (08:58)
[2019-12-03] MEDS: Fenofibrate 145 MG Tablet PO (08:58)
[2019-12-03] MEDS: Amox/Clavulanate 875 MG Tablet PO ×2 (08:59→20:56)
[2019-12-03] MEDS: Amiodarone 200 MG Tablet 400 MG PO (08:59)
--- NOTE | 2019-12-03 11:59 | CASEMGMT ---
Readmission chart review: Pt was admitted to [facility] 11/27-11/30/19 for Acute hypoxic resp failure/HCAP and was initially in the ICU then transferred to PCU. Pt did not qualify for home oxygen but pt was set up with [facility] for SN, PT/OT but they were unable to do start of care as pt was readmitted late on 12/01/19 for pulm edema/CHF. Pt was also in [facility] ED for constipation earlier that same evening and was discharged home but per , they were only home a short period of time and pt became increasingly SOB. also stated that pt was unable to use his cpap d/t the electric being off at their home. This RN CM to follow PT/OT, home oxygen need, and for any further discharge planning/needs. aware to ask for CM if any further questions/concerns/needs arise, voices understanding. SStaten RN CM
--- NOTE | 2019-12-03 15:09 | CASEMGMT ---
Addendum entered by Irais Steven 12/03/19 15:15: SW did talk with patient and his and they most definitely would like patient to go to inpatient rehab at [facility]. SW let them know that he would likely be able to go on Saturday. Plan: [facility] 4th floor rehab unit. Irais VARELA Original Note: SW spoke with therapy and they feel patient would be an excellent inpatient rehab candidate. SW spoke with patient and his briefly, but they had visitors so SW will stop back by. SW did talk with Jessika in rehab and they can accept patient. Irais MOLINA [employer]
--- NOTE | 2019-12-03 15:29 | CASEMGMT ---
DONIS BENZ NOTE: Call placed to [facility] and spoke to Dunia. She was made aware discharge plan is for pt to go to instead of returning home. Dinorah ARREDONDO RN CM
[2019-12-03 16:41] LABS: Bedside Glucose 157 mg/dL (70-110)
[2019-12-03] MEDS: Furosemide 40 MG/4 ML Vial IV (17:02)
[2019-12-03] MEDS: Insulin Lispro 100 UNIT/ML INSULN.PEN SC ×2 (17:02→20:56)
[2019-12-03] MEDS: 0.9% Saline Lock 10 ML Syringe IV (17:02)
[2019-12-03 17:05] LABS: Bedside Glucose 147 mg/dL (70-110)
[2019-12-03] MEDS: Acetaminophen 325 MG Tablet 650 MG PO ×2 (17:10→23:01)
--- NOTE | 2019-12-03 17:32 | PN_ITS ---
Patient Problems: Active and Suspected Problems (Last Reviewed 12/02/19 @ 01:[address] Sonu Dunn MD) Heart failure (Acute) Lactic acidosis (Acute) Acute respiratory failure with hypoxia (Acute) Pneumonia (Acute) Reason for Visit: Follow-up on pulmonary edema Subjective: Patient was seen and examined. Feels improved, comfortable sitting in a chair, on room air. Denies any chest pain or dizziness or palpitation. Objective: Physical exam: General: Alert, Oriented x3, Cooperative, - - appears fatigued HEENT: Atraumatic, PERRLA, EOMI, Normocephalic Oral: Moist Mucosa Neck: Supple Lungs: Normal air movement, Diminished, - - no crackles heard Cardiovascular: Regular rate, Regular Rhythm, Normal S1, Normal S2, No murmurs Abdomen: Bowel Sounds Present, Soft, Non Tender, Non-Distended, No Hepato- splenomegaly Extremities: No edema Skin: No rashes, No breakdown Musculoskeletal: No Tenderness to Palpation of Joints or Extremities Lymphatic: No Cervical, Supraclavicular, or Inguinal Adenopathy Neurological: Cranial nerves II-XII grossly intact, Neuro grossly intact Psych/Mental Status: Normal Affect, Appropriate Vitals/I&O's: Vital Signs Temp Pulse Resp BP Pulse Ox 98.0 F 85 16 130/75 H 96 12/03/19 14:43 12/03/19 15:00 12/03/19 14:43 12/03/19 14:43 12/03/19 14:43 Oxygen Flow Rate (L/min) 12 Oxygen Delivery Method Room Air Weight: 94.4 kg Body Mass Index (BMI) 31.6 Finger Stick Blood Glucose 190 Intake and Output for Last 24 Hours 12/01/19 12/02/19 12/03/19 23:59 23:59 23:59 Intake Total 2962.5 / 2962.5 560 / 560 Output Total 3750 / 3750 1075 / 1075 Balance -787.5 / -787.5 -515 / -515 Laboratory Results 12/02/19 22:10: POC Glucose 219 H 12/03/19 05:05: PT 34.0 H, INR 3.3 12/03/19 06:38: POC Glucose 68 L 12/03/19 06:39: POC Glucose 72 12/03/19 10:55: POC Glucose 147 H 12/03/19 16:27: POC Glucose 157 H Current Medications Acetaminophen (Tylenol) 650 mg PO Q6H PRN PRN PRN Reason: Pain Score 1-10/Temp > 100.7 F Last Admin: 12/03/19 17:10 Dose: 650 mg Documented by: [facility]) [facility] Last Admin: 12/03/19 08:32 Dose: 100 mg Documented by: Amiodarone HCl (Cordarone) 400 mg PO DAILY [facility] Last Admin: 12/03/19 08:59 Dose: 400 mg Documented by: Amoxicillin/Clavulanate Potassium (Augmentin Tablet) 875 mg PO BID [facility] Last Admin: 12/03/19 08:59 Dose: 875 mg Documented by: Aspirin (Aspirin, Baby) [facility] Last Admin: 12/03/19 08:33 Dose: 81 mg Documented by: Atorvastatin Calcium (Lipitor) 40 mg PO QHS [facility] Last Admin: 12/02/19 22:21 Dose: 40 mg Documented by: Calcium Carbonate (Tums) 500 mg PO DAILY [facility] Last Admin: 12/03/19 08:57 Dose: 500 mg Documented by: Carvedilol (Coreg) 3.125 mg PO BID [facility] Cholecalciferol (Vitamin D) 1,000 unit PO DAILY [facility] Last Admin: 12/03/19 08:59 Dose: 1,000 unit Documented by: Clopidogrel Bisulfate (Plavix) 75 mg PO DAILY [facility] Last Admin: 12/03/19 08:58 Dose: 75 mg Documented by: Colestipol HCl (Colestid Tablet) 1 gm PO BID [facility] Last Admin: 12/03/19 08:57 Dose: 1 gm Documented by: Fenofibrate (Tricor) 145 mg PO DAILY [facility] Last Admin: 12/03/19 08:58 Dose: 145 mg Documented by: Folic Acid (Folic Acid) [facility] Last Admin: 12/03/19 08:32 Dose: 2 mg Documented by: Furosemide (Lasix) 40 mg IV BIDLX [facility] Last Admin: 12/03/19 17:02 Dose: 40 mg Documented by: Glimepiride (Amaryl) [facility] Last Admin: 12/03/19 08:32 Dose: 4 mg Documented by: Glucagon () 1 mg IM .X1 PRN PRN Reason: Hypoglycemia Dextrose (Dextrose 10%-Water) 250 mls @ 999 mls/hr IV .Q16M PRN; Protocol PRN Reason: HYPOGLYCEMIA Sodium Chloride () 250 mls @ 15 mls/hr IV .[id number] PRN PRN Reason: Saline Flush Sodium Chloride () 250 mls @ 15 mls/hr IV .[id number] PRN PRN Reason: Additional IVPB Infusion Insulin Human Lispro (Humalog Kwikpen (Bkc)) 0 unit SC [facility]; Protocol Last Admin: 12/03/19 17:02 Dose: 1 units Documented by: Levothyroxine Sodium (Synthroid) 75 mcg PO DAILY@0600 [facility] Last Admin: 12/03/19 06:45 Dose: 75 mcg Documented by: Melatonin (Melatonin) 3 mg PO QHS PRN PRN PRN Reason: INSOMNIA Nitroglycerin (Nitrostat) 0.4 mg SUBLINGUAL Q5M PRN PRN Reason: CARDIAC/CHEST PAIN Ondansetron HCl (Zofran) 4 mg IV Q8H PRN PRN PRN Reason: NAUSEA/VOMITING Pantoprazole Sodium (Protonix) 40 mg PO DAILY [facility] Last Admin: 12/03/19 08:58 Dose: 40 mg Documented by: Potassium Chloride (K-Dur) [facility]q [facility] Last Admin: 12/03/19 08:32 Dose: 20 meq Documented by: Sodium Chloride () 10 - 40 ml IV UD PRN PRN Reason: SALINE FLUSH Last Admin: 12/03/19 17:02 Dose: 10 ml Documented by: Warfarin Sodium (Coumadin (Pbkc)) 2.5 mg PO DAILY@1700 [facility] Last Admin: 12/03/19 16:30 Dose: 2.5 mg Documented by: STROKE Vital Signs/Narrative: Vital Signs Temp Pulse Resp BP Pulse Ox 12/03/19 15:00 85 12/03/19 14:43 98.0 F 84 16 130/75 H 96 Medical Necessity - Tobacco Use Smoking Status: Never smoker Assessment/Plan All Active Problems (Last Reviewed 12/02/19 @ 01:[address] Sonu Dunn MD) Heart failure (Acute) Lactic acidosis (Acute) Severe sepsis (Ruled-out) Acute respiratory failure with hypoxia (Acute) Pneumonia (Acute) Hemoptysis (Acute) FILIPE (acute kidney injury) (Ruled-out) Ventricular tachycardia (Acute) Non-ST elevation (NSTEMI) myocardial infarction (Acute) History of myocardial infarction (Acute) Atrioventricular block (Acute) Premature ventricular contraction (Acute) 1. Hypotension, secondary to medication side effect, much improved Start to resume blood pressure pills from tomorrow 2. Acute on chronic systolic CHF, EF 35%, ischemic cardiomyopathy, increase Lasix to 40 mg IV twice daily 3. Recent pneumonia, continue on Augmentin 4. Paroxysmal atrial fibrillation, continue on amiodarone, INR is therapeutic on coumadin 5. CAD s/p stent in RCA, continue on aspirin, statin, fenofibrate, lasix. Lisinopril is held 6. Type 2 DM, home insulin held, continue on amaryl, Accu-Cheks with insulin sliding scale 7. YUSUF on cpap 8. DVT PPx- On coumadin Code Visit Inpatient E&M: 12887 Subs Hosp L2
[2019-12-03] MEDS: Atorvastatin Calcium 40 MG Tablet PO (20:56)
[2019-12-03 21:25] LABS: Bedside Glucose 208 mg/dL (70-110)
[2019-12-03] MEDS: MELATONIN 3 MG TABLET PO (23:01)
[2019-12-04] VITALS (12 sets, daily range): BP systolic 118–148; BP diastolic 69–94; PULSE 85–88; RESP 12–18; TEMP 36.4–37; O2SAT 90–97
[2019-12-04] MEDS: Levothyroxine 75 MCG Tablet PO (06:25)
[2019-12-04] MEDS: Acetaminophen 325 MG Tablet 650 MG PO ×3 (06:25→21:59)
[2019-12-04 06:30] LABS: Bedside Glucose 101 mg/dL (70-110)
[2019-12-04] MEDS: Glimepiride 4 MG Tablet PO (07:44)
[2019-12-04] MEDS: Allopurinol 100 MG Tablet PO (07:44)
[2019-12-04] MEDS: Folic Acid 1 MG Tablet 2 MG PO (07:44)
[2019-12-04] MEDS: Aspirin 81 MG TAB.CHEW PO (07:44)
[2019-12-04 08:03] LABS: Absolute Lymphocyte Count 0.75 X10^3/uL (0.83-4.51); Absolute Neutrophil Count 6.6 X10^3/uL (2.0-7.7); Basophil# 0.06 X10^3/uL; Basophil% 0.7 % (0-1); Eosinophil# 0.26 X10^3/uL; Eosinophils% 3.1 % (0-5); Hematocrit 34.2 % (40-54); Hemoglobin 11.2 g/dL (13.0-16.5); Lymphocyte # 0.75 X10^3/ul (4.0); Lymphocyte % 8.9 % (19-41); Mean Corp Hgb Conc 32.7 g/dL (32-36); Mean Corpuscular Hgb 31.4 pg (27.0-32.0); Mean Corpuscular Volume 95.8 fL (80-94); Monocyte# 0.78 X10^3/uL; Monocyte% 9.2 % (0-10); NRBC Flagged by Analyzer 0 % (0-5); Neutrophil # 6.56 X10^3/uL (2.7-7.7); Neutrophil % 77.6 % (47-70); Platelet Count 311 K/mm3 (150-450); RBC Distribution Width CV 13.6 % (11.6-14.6); RBC Distribution Width SD 48.3 fl (35.1-43.9); Red Blood Count 3.57 M/mm3 (4.6-6.2); White Blood Count 8.5 K/mm3 (4.4-11.0)
[2019-12-04 08:50] LABS: International Normalized Ratio 3.7
[2019-12-04 08:51] LABS: ALB/GLOB Ratio 0.7 RATIO (0.9-2.4); AST(SGOT) 18 U/L (15-37); Alanine Aminotransfer ALT/SGPT 25 U/L (16-61); Albumin, Serum 2.8 g/dL (3.2-5.0); Alkaline Phosphatase 50 U/L (45-117); Anion Gap 7 (5-15); BUN 22 mg/dL (7-18); BUN/Creat Ratio 19.3 RATIO (10-20); Calcium,Total 8.8 mg/dL (8.5-10.1); Chloride 107 mmol/L (98-107); Creatinine, Serum 1.14 mg/dL (0.70-1.30); EST Glomerular Filtration Rate 66 mL/min (>60); Est Glom Filt Rate - Afr Amer 79 mL/min (>60); Estimated Creatinine Clearance 47.51 ml/min; Globulin 4.1 g/dL (2.2-4.2); Glucose 114 mg/dL (74-106); Potassium 3.9 mmol/L (3.5-5.1); Protein, Total 6.9 g/dL (6.4-8.2); Sodium Level 139 mmol/L (136-145)
[2019-12-04] MEDS: Calcium Carbonate 500 MG Tablet PO (09:24)
[2019-12-04] MEDS: Amiodarone 200 MG Tablet 400 MG PO (09:25)
[2019-12-04] MEDS: Clopidogrel Bisulfate 75 MG Tablet PO (09:25)
[2019-12-04] MEDS: Pantoprazole Sodium 40 MG Tablet PO (09:25)
[2019-12-04] MEDS: Fenofibrate 145 MG Tablet PO (09:25)
[2019-12-04] MEDS: Furosemide 40 MG/4 ML Vial IV ×2 (09:25→16:52)
[2019-12-04] MEDS: Amox/Clavulanate 875 MG Tablet PO ×2 (09:25→21:59)
[2019-12-04] MEDS: Insulin Lispro 100 UNIT/ML INSULN.PEN SC ×3 (10:51→22:00)
[2019-12-04 10:56] LABS: Bedside Glucose 194 mg/dL (70-110)
[2019-12-04] MEDS: Gabapentin 300 MG Capsule PO ×2 (12:05→15:53)
[2019-12-04] MEDS: Lisinopril 2.5 MG Tablet PO (12:05)
[2019-12-04] MEDS: 0.9% Saline Lock 10 ML Syringe IV (16:52)
[2019-12-04 17:00] LABS: Bedside Glucose 155 mg/dL (70-110)
--- NOTE | 2019-12-04 18:11 | PCM.PN.HOSP ---
Patient Problems: Active and Suspected Problems (Last Reviewed 12/02/19 @ 01:[address] Sonu Dunn MD) Heart failure (Acute) Lactic acidosis (Acute) Acute respiratory failure with hypoxia (Acute) Pneumonia (Acute) Reason for Visit: Follow-up on pulmonary edema Subjective: Patient was seen and examined. On 2 L of oxygen. He denied any new complaints except for tingling numbness in his legs. His gabapentin was resumed. Blood pressure is much improved. No acute events overnight. Objective: Physical exam: General: Alert, Oriented x3, Cooperative, not pale, not jaundiced HEENT: Atraumatic, PERRLA, EOMI, Normocephalic Oral: Moist Mucosa Neck: Supple Lungs: Normal air movement, Diminished, - - no crackles heard Cardiovascular: Regular rate, Regular Rhythm, Normal S1, Normal S2, No murmurs Abdomen: Bowel Sounds Present, Soft, Non Tender, Non-Distended, No Hepato-splenomegaly Extremities: No edema Skin: No rashes, No breakdown Musculoskeletal: No Tenderness to Palpation of Joints or Extremities Lymphatic: No Cervical, Supraclavicular, or Inguinal Adenopathy Neurological: Cranial nerves II-XII grossly intact, Neuro grossly intact Psych/Mental Status: Normal Affect, Appropriate Vitals/I&O's: Vital Signs Temp Pulse Resp BP Pulse Ox 97.5 F L 87 18 118/72 94 12/04/19 15:00 12/04/19 15:00 12/04/19 15:00 12/04/19 15:00 12/04/19 15:00 Oxygen Flow Rate (L/min) 1 Oxygen Delivery Method Room Air Weight: 92.9 kg Body Mass Index (BMI) 31.6 Finger Stick Blood Glucose 190 Intake and Output for Last 24 Hours 12/02/19 12/03/19 12/04/19 23:59 23:59 23:59 Intake Total 2962.5 / 2962.5 880 / 880 120 / 120 Output Total 3750 / 3750 2875 / 2875 1350 / 1350 Balance -787.5 / -787.5 -1994 / -1994 -1230 / -1230 Microbiology Past 72 Hours 12/01/19 23:06 Blood Culture (Wb) - Anticubital Left Blood Culture - Preliminary No growth in 48 hours. 12/01/19 23:00 Blood Culture (Wb) - Anticubital Right Blood Culture - Preliminary No growth in 48 hours. Laboratory Results 12/03/19 20:54: POC Glucose 208 H 12/04/19 06:21: POC Glucose 101 12/04/19 07:40: PT 37.0 H, INR 3.7 H* 12/04/19 07:40: WBC 8.5, RBC 3.57 L, Hgb 11.2 L, Hct 34.2 L, MCV 95.8 H, MCH 31.4, MCHC 32.7, RDW Std Deviation 48.3 H, RDW Coeff of Gavino 13.6, Plt Count 311, MPV 11.0, Immature Gran % (Auto) 0.500, Neut % (Auto) 77.6 H, Lymph % (Auto) 8.9 L, [place] % (Auto) 9.2, Eos % (Auto) 3.1, Baso % (Auto) 0.7, Absolute Neuts (auto) 6.6, Absolute Lymphs (auto) 0.75 L, Nucleated RBC % 0 12/04/19 07:40: Sodium 139, Potassium 3.9, Chloride 107, Carbon Dioxide 25.0, Anion Gap 7, BUN 22 H, Creatinine 1.14, Estim Creat Clear Calc 47.51, Est GFR (MDRD) Af Amer 79, Est GFR (MDRD) Non-Af 66, BUN/Creatinine Ratio 19.3, Glucose 114 H, Calcium 8.8, Total Bilirubin 0.80, AST 18, ALT 25, Alkaline Phosphatase 50, Total Protein 6.9, Albumin 2.8 L, Globulin 4.1, Albumin/Globulin Ratio 0.7 L 12/04/19 10:48: POC Glucose 194 H 12/04/19 16:50: POC Glucose 155 H Current Medications Acetaminophen (Tylenol) 650 mg PO Q6H PRN PRN PRN Reason: Pain Score 1-10/Temp > 100.7 F Last Admin: 12/04/19 15:53 Dose: 650 mg Documented by: [facility] ([facility]) [facility] Last Admin: 12/04/19 07:44 Dose: 100 mg Documented by: Amiodarone HCl (Cordarone) 400 mg PO DAILY [facility] Last Admin: 12/04/19 09:25 Dose: 400 mg Documented by: Amoxicillin/Clavulanate Potassium (Augmentin Tablet) 875 mg PO BID [facility] Last Admin: 12/04/19 09:25 Dose: 875 mg Documented by: Aspirin (Aspirin, Baby) [facility] Last Admin: 12/04/19 07:44 Dose: 81 mg Documented by: Atorvastatin Calcium (Lipitor) 40 mg PO QHS [facility] Last Admin: 12/03/19 20:56 Dose: 40 mg Documented by: Calcium Carbonate (Tums) 500 mg PO DAILY [facility] Last Admin: 12/04/19 09:24 Dose: 500 mg Documented by: Carvedilol (Coreg) 3.125 mg PO BID [facility] Cholecalciferol (Vitamin D) 1,000 unit PO DAILY [facility] Last Admin: 12/04/19 09:25 Dose: 1,000 unit Documented by: Clopidogrel Bisulfate (Plavix) 75 mg PO DAILY [facility] Last Admin: 12/04/19 09:25 Dose: 75 mg Documented by: Colestipol HCl (Colestid Tablet) 1 gm PO BID [facility] Last Admin: 12/04/19 09:25 Dose: 1 gm Documented by: Fenofibrate (Tricor) 145 mg PO DAILY [facility] Last Admin: 12/04/19 09:25 Dose: 145 mg Documented by: Folic Acid (Folic Acid) [facility] Last Admin: 12/04/19 07:44 Dose: 2 mg Documented by: Furosemide (Lasix) 40 mg IV BIDLX [facility] Last Admin: 12/04/19 16:52 Dose: 40 mg Documented by: Gabapentin (Neurontin) 300 mg PO TIDCM [facility] Last Admin: 12/04/19 15:53 Dose: 300 mg Documented by: Glimepiride (Amaryl) [facility] Last Admin: 12/04/19 07:44 Dose: 4 mg Documented by: Glucagon () 1 mg IM .X1 PRN PRN Reason: Hypoglycemia Dextrose (Dextrose 10%-Water) 250 mls @ 999 mls/hr IV .Q16M PRN; Protocol PRN Reason: HYPOGLYCEMIA Sodium Chloride () 250 mls @ 15 mls/hr IV .[id number] PRN PRN Reason: Saline Flush Sodium Chloride () 250 mls @ 15 mls/hr IV .[id number] PRN PRN Reason: Additional IVPB Infusion Insulin Human Lispro (Humalog Kwikpen (Bkc)) 0 unit SC ACHS [facility]; Protocol Last Admin: 12/04/19 16:52 Dose: 1 units Documented by: Levothyroxine Sodium (Synthroid) 75 mcg PO DAILY@0600 [facility] Last Admin: 12/04/19 06:25 Dose: 75 mcg Documented by: Lisinopril (Zestril) 2.5 mg PO DAILY [facility] Last Admin: 12/04/19 12:05 Dose: 2.5 mg Documented by: Melatonin (Melatonin) 3 mg PO QHS PRN PRN PRN Reason: INSOMNIA Last Admin: 12/03/19 23:01 Dose: 3 mg Documented by: Nitroglycerin (Nitrostat) 0.4 mg SUBLINGUAL Q5M PRN PRN Reason: CARDIAC/CHEST PAIN Ondansetron HCl (Zofran) 4 mg IV Q8H PRN PRN PRN Reason: NAUSEA/VOMITING Pantoprazole Sodium (Protonix) 40 mg PO DAILY [facility] Last Admin: 12/04/19 09:25 Dose: 40 mg Documented by: Potassium Chloride (K-Dur) 20 meq [facility] Last Admin: 12/04/19 07:44 Dose: 20 meq Documented by: Sodium Chloride () 10 - 40 ml IV UD PRN PRN Reason: SALINE FLUSH Last Admin: 12/04/19 16:52 Dose: 10 ml Documented by: STROKE Vital Signs/Narrative: Vital Signs Temp Pulse Resp BP Pulse Ox 12/04/19 15:00 97.5 F L 87 18 118/72 94 12/04/19 14:59 85 12/04/19 14:19 92 12/04/19 14:15 92 Medical Necessity - Tobacco Use Smoking Status: Never smoker Assessment/Plan All Active Problems (Last Reviewed 12/02/19 @ 01:[address] oSnu Dunn MD) Heart failure (Acute) Lactic acidosis (Acute) Severe sepsis (Ruled-out) Acute respiratory failure with hypoxia (Acute) Pneumonia (Acute) Hemoptysis (Acute) FILIPE (acute kidney injury) (Ruled-out) Ventricular tachycardia (Acute) Non-ST elevation (NSTEMI) myocardial infarction (Acute) History of myocardial infarction (Acute) Atrioventricular block (Acute) Premature ventricular contraction (Acute) 1. Hypotension, secondary to medication side effect, resolved 2. Acute on chronic systolic CHF, EF 35%, ischemic cardiomyopathy, continue on Lasix to 40 mg IV twice daily 3. Recent pneumonia, continue on Augmentin, stop date is 11/15/19 4. Paroxysmal atrial fibrillation, continue on amiodarone, INR is supratherapeutic, will hold coumadin 5. CAD s/p stent in RCA, continue on aspirin, statin, fenofibrate, lasix. Lisinopril resumed 6. Type 2 DM, home insulin held, continue on amaryl, Accu-Cheks with insulin sliding scale 7. YUSUF on cpap 8. DVT PPx-supratherapeutic, Coumadin held, repeat INR in a.m. Code Visit Inpatient E&M: 75719 Subs Hosp L2
[2019-12-04] MEDS: Carvedilol 3.125 MG TABLET PO (21:59)
[2019-12-04] MEDS: Atorvastatin Calcium 40 MG Tablet PO (21:59)
[2019-12-04 22:05] LABS: Bedside Glucose 181 mg/dL (70-110)
[2019-12-04] MEDS: MELATONIN 3 MG TABLET PO (22:18)
[2019-12-05] VITALS (7 sets, daily range): BP systolic 98–139; BP diastolic 60–73; PULSE 80–88; RESP 18; TEMP 36.3–36.7; O2SAT 94–96
[2019-12-05] MEDS: Acetaminophen 325 MG Tablet 650 MG PO (05:11)
[2019-12-05] MEDS: Levothyroxine 75 MCG Tablet PO (05:11)
[2019-12-05 06:44] LABS: Prothrombin Time (Protime)PT. 37.6 SECONDS (11.7-14.9)
[2019-12-05 06:47] LABS: International Normalized Ratio 3.8
[2019-12-05 06:50] LABS: Bedside Glucose 124 mg/dL (70-110)
--- NOTE | 2019-12-05 08:14 | DCINST_ITS ---
- Discharge Diagnoses Current Active Problems: Current Active and Chronic Problems (Last Reviewed 12/02/19 @ 01:[address] Sonu Dunn MD) Heart failure (Acute) Acute exacerbation of CHF (congestive heart failure) (Chronic) Lactic acidosis (Acute) Acute respiratory failure with hypoxia (Acute) Pneumonia (Acute) Reason(s) for Visit for Discharge Instructions: Shortness of breath You will use the following diet at home:: Cardiac Your food should be the consistency of: Regular Your liquids should be the consistency of: Regular/Thin Discharge Activity: Return to Normal Activity Allergies/Adverse Reactions: Allergies Iodine and Iodide Containing Produc Adverse Reaction (Severe, Verified 12/01/19 17:31) Diarrhea metformin Adverse Reaction (Verified 12/01/19 17:31) Upset Stomach niacin Adverse Reaction (Verified 12/01/19 17:31) Other Medications to take at Discharge Allopurinol [Zyloprim] 100 mg PO DAILYCM 11/27/19 Amiodarone HCl [Cordarone] 400 mg PO DAILY 11/27/19 Aspirin 81 mg PO DAILY 11/27/19 Calcium Citrate 950 mg PO DAILY 11/27/19 Cholecalciferol (VIT D3) [Vitamin D3] 1,000 unit PO DAILY 11/27/19 Clopidogrel Bisulfate [Clopidogrel] 75 mg PO DAILY 11/27/19 Colestipol Tablet [Colestid Tablet] 1 gm PO BID 11/27/19 Fenofibrate,Micronized [Fenofibrate] 200 mg PO DAILY 11/27/19 Folic Acid 2 mg PO DAILY 11/27/19 Glimepiride [Amaryl] 4 mg PO DAILY 11/27/19 Levothyroxine [Synthroid] 75 mcg PO DAILY 11/27/19 Lisinopril [Zestril] 2.5 mg PO DAILY 11/27/19 Nitroglycerin 0.4 mg SL Q5M MDD 3 11/27/19 Pantoprazole Sodium [Protonix] 40 mg PO DAILY 11/27/19 Rosuvastatin Calcium [Crestor] 20 mg PO DAILY 11/27/19 Tizanidine HCl [Zanaflex] 4 mg PO DAILY 11/27/19 Warfarin [Coumadin] 2.5 mg PO DAILY 12/02/19 Acetaminophen [Tylenol Tablet] 650 mg PO Q6H PRN PRN tab 12/05/19 Amox/Clavulanate Tablet [Augmentin Tablet] 875 mg PO BIDCM #0 12/05/19 Carvedilol [Coreg (Beta Tiesha)] 3.125 mg PO BID tab 12/05/19 Furosemide [Lasix] 40 mg PO BID 30 Days #60 tab 12/05/19 Gabapentin [Neurontin] 300 mg PO TIDCM cap 12/05/19 Insulin Lispro [Humalog KwikPen] See Protocol SUBCUT ACHS #0 insuln.pen 12/05/19 Potassium Chloride [K-Dur] 20 meq PO DAILYCM tab 12/05/19 The following prescriptions were given: Furosemide [Lasix] 40 mg PO BID 30 Days #60 tab Primary Care Physician: Angel Lang MD [Primary Care Provider] - Please follow up with your Primary Care Physician in: within 2 weeks Test Results: Test results from this visit will be discussed in further detail at your follow- up appointment, if applicable. Please Follow Up With: Angel Lang MD When: Juan Manuel Wilkinson Please Follow Up With: within 2 weeks Proposed Discharge Date: 12/05/19
--- NOTE | 2019-12-05 08:16 | DS.PCM_ITS ---
Discharge Date and Diagnosis Date of Admission: 12/02/19 Date of Discharge: 12/05/19 - Primary Discharge Diagnosis Active and Suspected Problems (Last Reviewed 12/02/19 @ 01:[address] Sonu Dunn MD) Hypotension Acute on chronic systolic CHF Recent pneumonia - Secondary Discharge Diagnosis Chronic Problems (Last Reviewed 12/02/19 @ 01:[address] Sonu Dunn MD) Acute exacerbation of CHF (congestive heart failure) (Chronic) Presence of stent of bypass graft (Chronic ~11/23/19) PCI/FEDERICO to the SVG to RCA @[facility] 11/23/19 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 (Chronic ~04/20/02) Paroxysmal atrial fibrillation (Chronic) Type 2 diabetes mellitus (Chronic) Paroxysmal ventricular tachycardia (Chronic) Aortocoronary bypass status (Chronic ~06/18/96) CABG x3 - KO to diag, SVG to RCA and SVG to RCA 06/18/1996 Chronic systolic congestive heart failure (Chronic) Ischemic cardiomyopathy (Chronic) Atherosclerotic heart disease of samish coronary artery without angina pectoris (Chronic) CABG x3 - KO to diag, SVG to RCA and SVG to RCA 06/18/1996 group home (current) use of anticoagulants (Chronic) History of atrial fibrillation (Chronic) CKD (chronic kidney disease), stage III (Chronic) History of DVT (deep vein thrombosis) (Chronic) Upper Extremity HLD (hyperlipidemia) (Chronic) Hospital Course and Treatment Imaging Results: Clinical Impression(s) from Imaging Studies Chest X-Ray 12/01/19 22:57 IMPRESSION: Increasing bilateral pulmonary infiltrates Electronically Signed: Zeferino Jimenez DO at 23:23 EST Tel [phone], Service support , Chest X-Ray 12/03/19 08:03 IMPRESSION: Persistent left pleural effusion with left basilar atelectasis. The CHF has almost completely cleared. Electronically Signed: Vinnie Chen, at 13:08 EST , Service support , None Operations: None Procedures: 2-D Echocardiogram Summary of Care Provided: The patient is a 79 year old M with past medical history of systolic CHF, CKD stage III, CAD status post CABG and stent, status post AICD who comes in with progressive shortness of breath as well as leg edema. Patient was recently admitted and treated for pneumonia and acute CHF. He was discharged home and returned the next day to the emergency room with complaints of constipation. He was treated and discharged home and presented back with progressive shortness of breath. His management during the hospital stay has been at that of acute CHF and his antibiotics were continued for previous history of pneumonia. Initially during his hospital stay, patient was found to be hypotensive and his medications were held. He was given IV fluids. This was gradually reintroduced again. He continued to improve. His INR was supratherapeutic 2 days prior to his discharge. His Coumadin was held. Patient was seen and evaluated physical therapy and found to qualify for acute inpatient rehab. He was discharged in an improved state. Need a repeat INR done the next day in the rehab to follow-up on his INR. Stop date for his antibiotics is 12/07/19 Subjective: The day of discharge, patient was seen and examined. Denied any new complaints. INR supratherapeutic. Objective: Physical exam: General: Alert, Oriented x3, Cooperative, not pale, not jaundiced, on 2L of oxygen. HEENT: Atraumatic, PERRLA, EOMI, Normocephalic Oral: Moist Mucosa Neck: Supple Lungs: Normal air movement, Diminished, - - no crackles heard Cardiovascular: Regular rate, Regular Rhythm, Normal S1, Normal S2, No murmurs Abdomen: Bowel Sounds Present, Soft, Non Tender, Non-Distended, No Hepato- splenomegaly Extremities: No edema Skin: No rashes, No breakdown Musculoskeletal: No Tenderness to Palpation of Joints or Extremities Lymphatic: No Cervical, Supraclavicular, or Inguinal Adenopathy Neurological: Cranial nerves II-XII grossly intact, Neuro grossly intact Psych/Mental Status: Normal Affect, Appropriate - Physical Exam Vitals/I&O's: Vital Signs Temp Pulse Resp BP Pulse Ox 98.1 F 80 18 98/60 94 12/05/19 05:18 12/05/19 07:03 12/05/19 05:18 12/05/19 05:18 12/05/19 07:35 Oxygen Flow Rate (L/min) 2 Oxygen Delivery Method Nasal Cannula Weight: 93 kg Body Mass Index (BMI) 31.6 Finger Stick Blood Glucose 190 Intake and Output for Last 24 Hours 12/03/19 12/04/19 12/05/19 23:59 23:59 23:59 Intake Total 880 / 880 600 / 600 Output Total 2875 / 2875 3000 / 3000 300 / 300 Balance -1994 / -1994 -240 / -240 -300 / -300 Microbiology Past 72 Hours 12/01/19 23:06 Blood Culture (Wb) - Anticubital Left Blood Culture - Preliminary No growth in 48 hours. 12/01/19 23:00 Blood Culture (Wb) - Anticubital Right Blood Culture - Preliminary No growth in 48 hours. Laboratory Results 12/04/19 07:40: PT 37.0 H, INR 3.7 H* 12/04/19 07:40: Sodium 139, Potassium 3.9, Chloride 107, Carbon Dioxide 25.0, Anion Gap 7, BUN 22 H, Creatinine 1.14, Estim Creat Clear Calc 47.51, Est GFR (MDRD) Af Amer 79, Est GFR (MDRD) Non-Af 66, BUN/Creatinine Ratio 19.3, Glucose 114 H, Calcium 8.8, Total Bilirubin 0.80, AST 18, ALT 25, Alkaline Phosphatase 50, Total Protein 6.9, Albumin 2.8 L, Globulin 4.1, Albumin/Globulin Ratio 0.7 L 12/04/19 10:48: POC Glucose 194 H 12/04/19 16:50: POC Glucose 155 H 12/04/19 21:53: POC Glucose 181 H 12/05/19 06:22: PT 37.6 H, INR 3.8 H* 12/05/19 06:28: POC Glucose 124 H Current Medications Acetaminophen (Tylenol) 650 mg PO Q6H PRN PRN PRN Reason: Pain Score 1-10/Temp > 100.7 F Last Admin: 12/05/19 05:11 Dose: 650 mg Documented by: [facility]op[facility] ([facility]rim) [facility] Last Admin: 12/04/19 07:44 Dose: 100 mg Documented by: Amiodarone HCl (Cordarone) 400 mg PO DAILY [facility] Last Admin: 12/04/19 09:25 Dose: 400 mg Documented by: Amoxicillin/Clavulanate Potassium (Augmentin Tablet) 875 mg PO BID [facility] Last Admin: 12/04/19 21:59 Dose: 875 mg Documented by: Aspirin (Aspirin, Baby) [facility] Last Admin: 12/04/19 07:44 Dose: 81 mg Documented by: Atorvastatin Calcium (Lipitor) 40 mg PO QHS [facility] Last Admin: 12/04/19 21:59 Dose: 40 mg Documented by: Calcium Carbonate (Tums) 500 mg PO DAILY [facility] Last Admin: 12/04/19 09:24 Dose: 500 mg Documented by: Carvedilol (Coreg) 3.125 mg PO BID [facility] Last Admin: 12/04/19 21:59 Dose: 3.125 mg Documented by: Cholecalciferol (Vitamin D) 1,000 unit PO DAILY [facility] Last Admin: 12/04/19 09:25 Dose: 1,000 unit Documented by: Clopidogrel Bisulfate (Plavix) 75 mg PO DAILY [facility] Last Admin: 12/04/19 09:25 Dose: 75 mg Documented by: Colestipol HCl (Colestid Tablet) 1 gm PO BID [facility] Last Admin: 12/04/19 22:12 Dose: 1 gm Documented by: Fenofibrate (Tricor) 145 mg PO DAILY [facility] Last Admin: 12/04/19 09:25 Dose: 145 mg Documented by: Folic Acid (Folic Acid) [facility] Last Admin: 12/04/19 07:44 Dose: 2 mg Documented by: Furosemide (Lasix) 40 mg IV BIDLX [facility] Last Admin: 12/04/19 16:52 Dose: 40 mg Documented by: Gabapentin (Neurontin) 300 mg PO TIDCM [facility] Last Admin: 12/04/19 15:53 Dose: 300 mg Documented by: Glimepiride (Amaryl) [facility] Last Admin: 12/04/19 07:44 Dose: 4 mg Documented by: Glucagon () 1 mg IM .X1 PRN PRN Reason: Hypoglycemia Dextrose (Dextrose 10%-Water) 250 mls @ 999 mls/hr IV .Q16M PRN; Protocol PRN Reason: HYPOGLYCEMIA Sodium Chloride () 250 mls @ 15 mls/hr IV .[id number] PRN PRN Reason: Saline Flush Sodium Chloride () 250 mls @ 15 mls/hr IV .[id number] PRN PRN Reason: Additional IVPB Infusion Insulin Human Lispro (Humalog Kwikpen (Bkc)) 0 unit SC ACHS [facility]; Protocol Last Admin: 12/05/19 06:52 Dose: Not Given Documented by: Levothyroxine Sodium (Synthroid) 75 mcg PO DAILY@0600 [facility] Last Admin: 12/05/19 05:11 Dose: 75 mcg Documented by: Lisinopril (Zestril) 2.5 mg PO DAILY [facility] Last Admin: 12/04/19 12:05 Dose: 2.5 mg Documented by: Melatonin (Melatonin) 3 mg PO QHS PRN PRN PRN Reason: INSOMNIA Last Admin: 12/04/19 22:18 Dose: 3 mg Documented by: Nitroglycerin (Nitrostat) 0.4 mg SUBLINGUAL Q5M PRN PRN Reason: CARDIAC/CHEST PAIN Ondansetron HCl (Zofran) 4 mg IV Q8H PRN PRN PRN Reason: NAUSEA/VOMITING Pantoprazole Sodium (Protonix) 40 mg PO DAILY [facility] Last Admin: 12/04/19 09:25 Dose: 40 mg Documented by: Potassium Chloride (K-Dur) 20 meq [facility] Last Admin: 12/04/19 07:44 Dose: 20 meq Documented by: Sodium Chloride () 10 - 40 ml IV UD PRN PRN Reason: SALINE FLUSH Last Admin: 12/04/19 16:52 Dose: 10 ml Documented by: Discharge Diet: Low fat/ Low Cholesterol, 6 Cup Fluid Restriction, 2000 mg Sodium Diet Discharge Activity: Return to Normal Activity Home Medications: Medications to take at Discharge Allopurinol [Zyloprim] 100 mg PO DAILY 11/27/19 Amiodarone HCl [Cordarone] 400 mg PO DAILY 11/27/19 Aspirin 81 mg PO DAILY 11/27/19 Calcium Citrate 950 mg PO DAILY 11/27/19 Cholecalciferol (VIT D3) [Vitamin D3] 1,000 unit PO DAILY 11/27/19 Clopidogrel Bisulfate [Clopidogrel] 75 mg PO DAILY 11/27/19 Colestipol Tablet [Colestid Tablet] 1 gm PO BID 11/27/19 Fenofibrate,Micronized [Fenofibrate] 200 mg PO DAILY 11/27/19 Folic Acid 2 mg PO DAILY 11/27/19 Glimepiride [Amaryl] 4 mg PO DAILY 11/27/19 Levothyroxine [Synthroid] 75 mcg PO DAILY 11/27/19 Lisinopril [Zestril] 2.5 mg PO DAILY 11/27/19 Nitroglycerin 0.4 mg SL Q5M MDD 3 11/27/19 Pantoprazole Sodium [Protonix] 40 mg PO DAILY 11/27/19 Rosuvastatin Calcium [Crestor] 20 mg PO DAILY 11/27/19 Acetaminophen [Tylenol Tablet] 650 mg PO Q6H PRN PRN tab 12/05/19 Amox/Clavulanate Tablet [Augmentin Tablet] 875 mg PO BIDCM 12/05/19 Carvedilol [Coreg (Beta Tiesha)] 3.125 mg PO BID 12/05/19 Furosemide [Lasix] 40 mg PO BID 12/05/19 Gabapentin [Neurontin] 300 mg PO TIDCM 12/05/19 Insulin Lispro [Humalog KwikPen] See Protocol SUBCUT ACHS 12/05/19 Potassium Chloride [K-Dur] 20 meq PO DAILYCM 12/05/19 Primary Care Physician: Angel Lang MD [Primary Care Provider] - Please follow up with your Primary Care Physician in: within 2 weeks Please Follow Up With: Angel Lang MD When: Juan Manuel Wilkinson Please Follow Up With: within 2 weeks Disposition: Inpt Rehab Unit/Facility Minutes spent on discharge:: 40 Patient Condition:: Stable Medical Necessity - Tobacco Use Smoking Status: Never smoker Tobacco Use: Non-smoker Meaningful Use Info Meaningful Use Diagnoses (Choose all that apply): CHF - CHF NATA/ARB ordered at discharge?: Yes Documented LVEF (%): 35 Code Visit Inpatient E&M: 84829 Disch Hosp
[2019-12-05] MEDS: Glimepiride 4 MG Tablet PO (08:20)
[2019-12-05] MEDS: Aspirin 81 MG TAB.CHEW PO (08:20)
[2019-12-05] MEDS: Gabapentin 300 MG Capsule PO (08:21)
[2019-12-05] MEDS: Folic Acid 1 MG Tablet 2 MG PO (08:21)
[2019-12-05] MEDS: Allopurinol 100 MG Tablet PO (08:25)
--- NOTE | 2019-12-05 10:04 | NURSING ---
Report called to Kendal DYKES on the inpatient rehab unit at this time
[2019-12-05] MEDS: Amox/Clavulanate 875 MG Tablet PO (10:35)
[2019-12-05] MEDS: Carvedilol 3.125 MG TABLET PO (10:36)
[2019-12-05] MEDS: Pantoprazole Sodium 40 MG Tablet PO (10:36)
[2019-12-05] MEDS: Amiodarone 200 MG Tablet 400 MG PO (10:36)
[2019-12-05] MEDS: Clopidogrel Bisulfate 75 MG Tablet PO (10:36)
[2019-12-05] MEDS: Calcium Carbonate 500 MG Tablet PO (10:37)
[2019-12-05] MEDS: Fenofibrate 145 MG Tablet PO (10:37)
[2019-12-05] MEDS: Lisinopril 2.5 MG Tablet PO (10:37)
[2019-12-05] MEDS: Furosemide 40 MG/4 ML Vial IV (10:38)
== END 2019-12-05 11:23 | DRG 291 ==
LOC: ED 22:57 → PCU 12-02 00:40
PROVIDERS: Admitting Provider Hospitalist; Emergency Provider Emergency Medicine; PCP Family Medicine; Visit Provider Internal Medicine
DX: I13.0 Hypertensive heart and chronic kidney disease with heart failure and stage 1 through stage 4 chronic kidney disease, or unspecified chronic kidney disease (principal); I50.23 Acute on chronic systolic (congestive) heart failure; J18.9 Pneumonia, unspecified organism; J96.01 Acute respiratory failure with hypoxia; E87.2 Acidosis; K56.49 Other impaction of intestine; J90 Pleural effusion, not elsewhere classified; I47.2 Ventricular tachycardia; N18.3 Chronic kidney disease, stage 3 (moderate); E11.22 Type 2 diabetes mellitus with diabetic chronic kidney disease; I48.0 Paroxysmal atrial fibrillation; G47.33 Obstructive sleep apnea (adult) (pediatric); I95.2 Hypotension due to drugs; T46.4X5A Adverse effect of angiotensin-converting-enzyme inhibitors, initial encounter; I25.10 Atherosclerotic heart disease of native coronary artery without angina pectoris; I25.5 Ischemic cardiomyopathy; E78.5 Hyperlipidemia, unspecified; Z95.5 Presence of coronary angioplasty implant and graft; Z79.01 Long term (current) use of anticoagulants; Z95.1 Presence of aortocoronary bypass graft; Z79.4 Long term (current) use of insulin; Z86.718 Personal history of other venous thrombosis and embolism; Z95.810 Presence of automatic (implantable) cardiac defibrillator; E03.9 Hypothyroidism, unspecified; K59.00 Constipation, unspecified; I25.2 Old myocardial infarction; Z87.01 Personal history of pneumonia (recurrent); Z86.19 Personal history of other infectious and parasitic diseases; Z79.02 Long term (current) use of antithrombotics/antiplatelets; Z79.82 Long term (current) use of aspirin; Z79.84 Long term (current) use of oral hypoglycemic drugs; Z79.899 Other long term (current) drug therapy
CPT/HCPCS: 36415; 71045; 74176; 80048; 80053; 82962; 83605; 83880; 84484; 85025; 85610; 87040; 87641; 93005; 93306; 94002; 94003; 94640; 96360; 96361; 97110; 97116; 97162; 97166; 99285; J7030; J7040; J7050; Q9957; A4216; C8929; J1940

== ENCOUNTER 2019-12-05 11:33 | Inpatient (IN) | payer MEDICARE, BC, SELFPAY ==
[2019-12-02 01:56] VITALS: BMI 31.6
[2019-12-05 11:43] VITALS: BP 127/71; PULSE 89; RESP 20; TEMP 36.5; O2SAT 91; BMI 29.7; BMI 29.8
[2019-12-05 12:11] LABS: Bedside Glucose 249 mg/dL (70-110)
[2019-12-05] MEDS: Gabapentin 300 MG Capsule PO ×2 (12:55→17:01)
[2019-12-05] MEDS: Insulin Lispro 100 UNIT/ML INSULN.PEN SC ×3 (12:55→21:01)
[2019-12-05 15:48] VITALS: O2SAT 97
[2019-12-05 16:51] LABS: Bedside Glucose 202 mg/dL (70-110)
[2019-12-05 17:00] VITALS: BP 109/71; PULSE 88
[2019-12-05] MEDS: Amox/Clavulanate 875 MG Tablet PO (17:01)
[2019-12-05] MEDS: Furosemide 40 MG Tablet PO (17:02)
[2019-12-05 20:27] VITALS: BP 134/88; PULSE 86; RESP 18; TEMP 36.4; O2SAT 97
[2019-12-05] MEDS: Senna/Docusate Sodium 1 Tablet 2 TABLET PO (20:45)
[2019-12-05] MEDS: Atorvastatin Calcium 40 MG Tablet PO (20:46)
[2019-12-05] MEDS: Carvedilol 3.125 MG TABLET PO (20:46)
[2019-12-05] MEDS: Acetaminophen 325 MG Tablet 650 MG PO (20:46)
[2019-12-05] MEDS: 0.9% Saline Lock 10 ML Syringe IV (21:02)
[2019-12-05 21:26] LABS: Bedside Glucose 179 mg/dL (70-110)
[2019-12-06] MEDS: Levothyroxine 75 MCG Tablet PO (05:45)
[2019-12-06 06:26] LABS: International Normalized Ratio 3.3; Prothrombin Time (Protime)PT. 33.8 SECONDS (11.7-14.9)
[2019-12-06 06:50] LABS: Bedside Glucose 102 mg/dL (70-110)
[2019-12-06 07:33] VITALS: O2SAT 93
[2019-12-06] MEDS: Aspirin 81 MG TAB.CHEW PO (07:46)
[2019-12-06] MEDS: Allopurinol 100 MG Tablet PO (07:46)
[2019-12-06] MEDS: Glimepiride 4 MG Tablet PO (07:46)
[2019-12-06] MEDS: Folic Acid 1 MG Tablet 2 MG PO (07:46)
[2019-12-06] MEDS: Lisinopril 2.5 MG Tablet PO (07:47)
[2019-12-06] MEDS: Amox/Clavulanate 875 MG Tablet PO ×2 (07:47→16:58)
[2019-12-06] MEDS: Pantoprazole Sodium 40 MG Tablet PO (07:49)
[2019-12-06] MEDS: Carvedilol 3.125 MG TABLET PO ×2 (07:49→21:15)
[2019-12-06] MEDS: Fenofibrate 145 MG Tablet PO (07:49)
[2019-12-06] MEDS: Clopidogrel Bisulfate 75 MG Tablet PO (07:49)
[2019-12-06] MEDS: Senna/Docusate Sodium 1 Tablet 2 TABLET PO ×2 (07:51→21:14)
[2019-12-06] MEDS: Gabapentin 300 MG Capsule PO ×3 (07:53→16:58)
[2019-12-06] MEDS: Amiodarone 200 MG Tablet 400 MG PO (07:54)
[2019-12-06 09:44] VITALS: BP 110/68; PULSE 87; RESP 16; TEMP 36.7; O2SAT 92
[2019-12-06] MEDS: Furosemide 40 MG Tablet PO ×2 (09:58→16:58)
[2019-12-06] MEDS: Magnesium Hydroxide 30 ML UDC PO (09:59)
[2019-12-06] MEDS: Insulin Lispro 100 UNIT/ML INSULN.PEN SC ×3 (11:45→21:14)
[2019-12-06 11:50] LABS: Bedside Glucose 209 mg/dL (70-110)
[2019-12-06] MEDS: 0.9% Saline Lock 10 ML Syringe IV (15:13)
[2019-12-06 16:25] VITALS: BP 116/68
[2019-12-06 17:05] LABS: Bedside Glucose 209 mg/dL (70-110)
[2019-12-06 19:26] VITALS: BP 125/83; PULSE 72; RESP 17; TEMP 36.6; O2SAT 93
--- NOTE | 2019-12-06 20:47 | PCM.HP.STD ---
Problem List (1) Physical debility Status: Acute Comment: Due to recent admission for PNA, CHF and hypotension. (2) Heart failure Status: Chronic Qualifiers: Heart failure type: combined systolic and diastolic (3) Acute exacerbation of CHF (congestive heart failure) Status: Acute (4) Acute respiratory failure with hypoxia Status: Acute (5) Non-ST elevation (NSTEMI) myocardial infarction Status: Chronic Comment: elevated troponin to 0.192 on 11/27/19 - indeterminate, had just recently had a SAS ETL DEVELOPER to the RCA at [facility] in early november (6) Presence of stent of bypass graft Status: Chronic Comment: PCI/FEDERICO to the SVG to RCA @[facility] 11/23/19 (7) 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 Status: Chronic (8) Paroxysmal atrial fibrillation Status: Chronic (9) History of myocardial infarction Status: Chronic (10) Type 2 diabetes mellitus Status: Chronic Qualifiers: (11) Atrioventricular block Status: Chronic Comment: hasa PM/AICD (12) Paroxysmal ventricular tachycardia Status: Chronic (13) Premature ventricular contraction Status: Chronic (14) Aortocoronary bypass status Status: Chronic Comment: CABG x3 - KO to diag, SVG to RCA and SVG to RCA 06/18/1996 (15) Ischemic cardiomyopathy Status: Chronic (16) Atherosclerotic heart disease of [place] coronary artery without angina pectoris Status: Chronic Qualifiers: Comment: CABG x3 - KO to diag, SVG to RCA and SVG to RCA 06/18/1996 (17) alf (current) use of anticoagulants Status: Chronic Comment: Warfarin (18) CKD (chronic kidney disease), stage III Status: Chronic (19) HLD (hyperlipidemia) Status: Chronic Qualifiers: (20) Supratherapeutic INR Status: Acute (21) Macrocytic anemia Status: Acute (22) Chronic renal disease Status: Chronic Qualifiers: Chronic kidney disease stage: stage 3 (moderate) Qualified Code(s): N18.3 - Chronic kidney disease, stage 3 (moderate) History of Present Illness Date of Admission: 12/05/19 Chief Complaint: Debility secondary to recent healthcare acquired pneumonia, acute on chronic diastolic and systolic congestive heart failure and recent SAS ETL DEVELOPER at [facility] to the SVG to RCA The patient is a 79 year old M with a past medical history of pretension, hyperlipidemia, diabetes mellitus type 2, diabetic peripheral polyneuropathy in both lower extremities, coronary artery disease, CABG in 1995, PTCA with FEDERICO to the SVG to RCA at [facility] in November 2019, ischemic cardiomyopathy with a 35% ejection fraction, diastolic dysfunction, paroxysmal ventricular tachycardia on amiodarone, paroxysmal atrial fibrillation, gout, obstructive sleep apnea compliant with PA P therapy, remote hx of DVT UE, chronic anticoagulation with warfarin and supratherapeutic INR who is admitted to the inpatient rehab unit at [facility] on 12/05/19 for greater than 3 hours of therapy daily with a goal of returning him home at or near his prior level of independence. Prior to October he was fully independent and ambulated without an assistive device. 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 He has mostly been in the hospital since the beginning of October. He was at [facility] from November 15 to November 26 for paroxysmal ventricular tachycardia and while there had a cardiac catheterization that revealed an RCA occlusion and he underwent PCI to the SVG to RCA. 2 to 3 days following return home from [facility] he was admitted to [facility] with healthcare acquired pneumonia in the left lower lobe. He also had acute respiratory failure requiring BiPAP. He was discharged on 12/01/2019 and return to the emergency department that same day complaining of increasing shortness of breath. He was diagnosed with acute on chronic systolic and diastolic congestive heart failure. He was diuresed and chest x-ray on 12/03/2019 showed good resolution of congestive heart failure. He had an echocardiogram on 12/02/2019 that showed an ejection fraction of 35% with evidence of diastolic dysfunction. The left atrium was severely enlarged. There was no significant valvular heart disease. Medication list was reviewed. Coumadin is on hold for supratherapeutic INR. PT/OT notes were reviewed. Vital signs are stable. Pulse ox is 93% on room air. He is currently on a 1500 cc a day fluid restriction. He has good urine output. His weight on 12/05/2019 was 190 pounds and 0.6 ounces. Weight on 223 in rehab is 188 pounds. Recent lab was reviewed. Past Medical History Past Medical History (Chronic Problems): Chronic Problems (Last Reviewed 12/07/19 @ 12:[address] Alicja Ortega DO) Heart failure (Chronic) Chronic renal disease (Chronic) Non-ST elevation (NSTEMI) myocardial infarction (Chronic) elevated troponin to 0.192 on 11/27/19 - indeterminate, had just recently had a SAS ETL DEVELOPER to the RCA at [facility] in early november Presence of stent of bypass graft (Chronic ~11/23/19) PCI/FEDERICO to the SVG to RCA @[facility] 11/23/19 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 (Chronic ~04/20/02) Paroxysmal atrial fibrillation (Chronic) History of myocardial infarction (Chronic) Type 2 diabetes mellitus (Chronic) Atrioventricular block (Chronic) hasa PM/AICD Paroxysmal ventricular tachycardia (Chronic) Premature ventricular contraction (Chronic) Aortocoronary bypass status (Chronic ~06/18/96) CABG x3 - KO to diag, SVG to RCA and SVG to RCA 06/18/1996 Ischemic cardiomyopathy (Chronic) Atherosclerotic heart disease of [place] coronary artery without angina pectoris (Chronic) CABG x3 - KO to diag, SVG to RCA and SVG to RCA 06/18/1996 alf (current) use of anticoagulants (Chronic) Warfarin CKD (chronic kidney disease), stage III (Chronic) HLD (hyperlipidemia) (Chronic) Medical History: Medical History (Last Reviewed 12/07/19 @ 12:[address] Alicja Ortega, DO) Non-ST elevation (NSTEMI) myocardial infarction (Chronic) I21.4 elevated troponin to 0.192 on 11/27/19 - indeterminate, had just recently had a SAS ETL DEVELOPER to the RCA at [facility] in early november Presence of stent of bypass graft (Chronic) Onset Date: ~11/23/19 Z95.828 PCI/FEDERICO to the SVG to RCA @[facility] 11/23/19 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 (Chronic) Onset Date: ~04/20/02 Z95.810 Paroxysmal atrial fibrillation (Chronic) I48.0 History of myocardial infarction (Chronic) I25.2 Type 2 diabetes mellitus (Chronic) E11.9 Atrioventricular block (Chronic) I44.30 hasa PM/AICD Paroxysmal ventricular tachycardia (Chronic) I47.2 Premature ventricular contraction (Chronic) I49.3 Ischemic cardiomyopathy (Chronic) I25.5 Atherosclerotic heart disease of [place] coronary artery without angina pectoris (Chronic) I25.10 CABG x3 - KO to diag, SVG to RCA and SVG to RCA 06/18/1996 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) use of anticoagulants (Chronic) Z79.01 Warfarin CKD (chronic kidney disease), stage III (Chronic) HLD (hyperlipidemia) (Chronic) E78.5 Hypothyroidism E03.9 YUSUF (obstructive sleep apnea) G47.33 Gout M10.9 Neuropathy G62.9 History of DVT (deep vein thrombosis) (Resolved) Z86.718 Upper Extremity History of cardiac pacemaker Onset Date: ~07/14/01 Z95.0 Allergies Iodine and Iodide Containing Produc Adverse Reaction (Severe, Verified 12/01/19 17:31) Diarrhea metformin Adverse Reaction (Verified 12/01/19 17:31) Upset Stomach niacin Adverse Reaction (Verified 12/01/19 17:31) Other Home Medications: Ambulatory Orders Medication Instructions Recorded Allopurinol [Zyloprim] 100 mg PO DAILYCM 11/27/19 Amiodarone HCl [Cordarone] 400 mg PO DAILY 11/27/19 Aspirin 81 mg PO DAILY 11/27/19 Calcium Citrate 950 mg PO DAILY 11/27/19 Cholecalciferol (VIT D3) [Vitamin 1,000 unit PO DAILY 11/27/19 D3] Clopidogrel Bisulfate [Clopidogrel] 75 mg PO DAILY 11/27/19 Colestipol Tablet [Colestid Tablet] 1 gm PO BID 11/27/19 Fenofibrate,Micronized 200 mg PO DAILY 11/27/19 [Fenofibrate] Folic Acid 2 mg PO DAILY 11/27/19 Glimepiride [Amaryl] 4 mg PO DAILY 11/27/19 Levothyroxine [Synthroid] 75 mcg PO DAILY 11/27/19 Lisinopril [Zestril] 2.5 mg PO DAILY 11/27/19 Nitroglycerin 0.4 mg SL Q5M MDD 3 11/27/19 Pantoprazole Sodium [Protonix] 40 mg PO DAILY 11/27/19 Rosuvastatin Calcium [Crestor] 20 mg PO DAILY 11/27/19 Acetaminophen [Tylenol Tablet] 650 mg PO Q6H PRN PRN tab 12/05/19 Amox/Clavulanate Tablet [Augmentin 875 mg PO BIDCM 12/05/19 Tablet] Carvedilol [Coreg (Beta Tiesha)] 3.125 mg PO BID 12/05/19 Furosemide [Lasix] 40 mg PO BID 12/05/19 Gabapentin [Neurontin] 300 mg PO TIDCM 12/05/19 Insulin Lispro [Humalog KwikPen] See Protocol SUBCUT ACHS 12/05/19 Potassium Chloride [K-Dur] 20 meq PO DAILYCM 12/05/19 Surgical History: Surgical History (Last Reviewed 12/07/19 @ 12:[address] Alicja Ortega DO) Aortocoronary bypass status (Chronic) Onset Date: ~06/18/96 Z95.1 CABG x3 - KO to diag, SVG to RCA and SVG to RCA 06/18/1996 History of cardiac radiofrequency ablation Onset Date: ~06/12/07 Z98.890 for atrial flutter @ [facility] 06/12/07 History of implantable cardioverter-defibrillator (ICD) placement Onset Date: ~07/14/01 Z95.810 History of tonsillectomy Z90.89 Surgical History: coronary bypass surgery, - - Pacemaker/AICD, tonsillectomy, CABG x3, PCI at [facility] in nov 2019 with FEDERICO to the SVG to the RCA Psychiatric History: No pertinent psych hx Lives: Spouse/ Significant Other Smoking Status: Never smoker Tobacco Use: Non-smoker Alcohol: None Drugs: None - *Family History Maternal Family History: Family History (Last Reviewed 12/07/19 @ 12:[address] Alicja Ortega DO) Father Myocardial infarction History Items: High Cholesterol, Heart Disease, Hypertension Paternal Family History: Family History (Last Reviewed 12/07/19 @ 12:[address] Alicja Ortega DO) Father Myocardial infarction History Items: High Cholesterol, Heart Disease, Hypertension Review of Systems Constitutional: Reports: Weakness, Fatigue. Denies: Chills, Fever, Weight Change Eyes: Denies: Vision Change HEENT: Reports: - - Denies epistaxis. Denies: Difficulty Hearing, Difficulty Swallowing, Head Aches, Sinus Congestion, Sinus Drainage Cardiovascular: Denies: Chest Pain, Edema, Light Headedness, Orthopnea, Palpitations, Syncope Respiratory: Reports: Cough - Occasional but has mostly resolved, Shortness of breath upon exertion. Denies: Hemoptysis, Shortness of breath at rest, Sputum production Gastrointestinal: Reports: Constipation - resolved with laxative, Nausea - mild. Denies: Abdominal Pain, Diarrhea, Hematemesis, Hematochezia, Vomiting Genitourinary: Denies: Dysuria Musculoskeletal: Denies: Joint Pain, Joint Tenderness Skin: Denies: Jaundice, Lesions, Rash, Wounds Neurological: Reports: Balance problems. Denies: Double vision, Slurred speech, Confusion, Focal weakness, Headaches, Numbness, Tingling, Tremor, Seizures Psychiatric: Denies: Anxiety, Depression, Homicidal Ideations, Suicidal Ideations Endocrine: Denies: Heat/ Cold Intolerance Hematologic/ Lymphatic: Reports: Hx of blood clot - remote in the UE. Denies: Anemia, Easy Bruising, Easy Bleeding VTE Information - Inpt Only VTE Present on Admission: No VTE Pharm Prophylaxis ordered?: No Reason prophylaxis not ordered:: Procedure Not Indicated - he is supratherapeutic on Warfarin Patient Problems: Active and Suspected Problems (Last Reviewed 12/07/19 @ 12:[address] Alicja Ortega, DO) Physical debility (Acute) Due to recent admission for PNA, CHF and hypotension. Supratherapeutic INR (Acute) Macrocytic anemia (Acute) - Physical Exam Vitals/I&O's: Vital Signs Temp Pulse Resp BP Pulse Ox 98 F 72 17 116/68 93 12/06/19 19:26 12/06/19 19:26 12/06/19 19:26 12/06/19 16:25 12/06/19 19:26 Oxygen Flow Rate (L/min) 1 Oxygen Delivery Method Room Air Weight: 188 lb Body Mass Index (BMI) 29.7 Finger Stick Blood Glucose 190 Intake and Output for Last 24 Hours 12/04/19 12/05/19 12/06/19 23:59 23:59 23:59 Intake Total 1260 / 1260 1400 / 1400 Output Total 1750 / 1750 1525 / 1525 Balance -490 / -490 -125 / -125 General: Alert, Oriented x3, Cooperative, No apparent distress, Well developed, Well nourished, - - he looks fatigued and weak. HEENT: Atraumatic, PERRLA, EOMI, Normocephalic Oral: No Gingival or Mucosal Lesions/ Ulcerations, Dry Mucosa Neck: Supple, No JVD, Negative Carotid Bruits, No Nodes, No Nuchal Rigidity, Trachea Midline Lungs: No rhonchi, No wheeze, No rales, - - he has mild conversational dyspnea. No accessory muscle use, not tachypneic at rest. Chest moves symmetrically. He has egophony in the left posterior lung half way up. Cardiovascular: Regular rate, Regular Rhythm, Normal S1, Normal S2, No murmurs, No Ectopic Activity, No rub noted, No Gallop Abdomen: Bowel Sounds Present, Soft, Non Tender, Non-Distended, - - No guarding with palpation Extremities: No clubbing, No cyanosis, No edema, Capillary Refill Less than 3 Seconds, No Calf Tenderness Skin: No rashes, No breakdown Musculoskeletal: - - No red, swollen or warm to touch joints Neurological: Cranial nerves II-XII grossly intact, Neuro grossly intact Psych/Mental Status: Normal Affect, Appropriate Laboratory Results 12/05/19 20:59: POC Glucose 179 H 12/06/19 05:40: PT 33.8 H, INR 3.3 12/06/19 06:27: POC Glucose 102 12/06/19 11:44: POC Glucose 209 H 12/06/19 17:00: POC Glucose 209 H Current Medications Acetaminophen (Tylenol) 650 mg PO Q6H PRN PRN PRN Reason: Pain Score 1-10/Temp > 100.7 F Last Admin: 12/05/19 20:46 Dose: 650 mg Documented by: [facility] Last Admin: 12/06/19 07:46 Dose: 100 mg Documented by: Amiodarone HCl (Cordarone) 400 mg PO DAILY [facility] Last Admin: 12/06/19 07:54 Dose: 400 mg Documented by: Amoxicillin/Clavulanate Potassium (Augmentin Tablet) [facility] Stop: 12/14/19 17:01 Last Admin: 12/06/19 16:58 Dose: 875 mg Documented by: Aspirin (Aspirin, Baby) [facility] Last Admin: 12/06/19 07:46 Dose: 81 mg Documented by: Atorvastatin Calcium (Lipitor) 40 mg PO QHS [facility] Last Admin: 12/05/19 20:46 Dose: 40 mg Documented by: Bisacodyl (Dulcolax) 10 mg RECTAL .PRN X 1 PRN PRN Reason: Constipation Carvedilol (Coreg) 3.125 mg PO BID [facility] Last Admin: 12/06/19 07:49 Dose: 3.125 mg Documented by: Cholecalciferol (Vitamin D (25mcg)) 1,000 unit PO DAILY [facility] Last Admin: 12/06/19 07:49 Dose: 1,000 unit Documented by: Clopidogrel Bisulfate (Plavix) 75 mg PO DAILY [facility] Last Admin: 12/06/19 07:49 Dose: 75 mg Documented by: Colestipol HCl (Colestid Tablet) 1 gm PO BID [facility] Last Admin: 12/06/19 07:53 Dose: 1 gm Documented by: Fenofibrate (Tricor) [facility] Last Admin: 12/06/19 07:49 Dose: 145 mg Documented by: Folic Acid (Folic Acid) 2 mg PO DAILY [facility] Last Admin: 12/06/19 07:46 Dose: 2 mg Documented by: Furosemide (Lasix) 40 mg PO 1000,1600 [facility] Last Admin: 12/06/19 16:58 Dose: 40 mg Documented by: Gabapentin (Neurontin) 300 mg PO TIDCM [facility] Last Admin: 12/06/19 16:58 Dose: 300 mg Documented by: Glimepiride (Amaryl) [facility] Last Admin: 12/06/19 07:46 Dose: 4 mg Documented by: Insulin Human Lispro (Humalog [place] (Bkc)) 0 unit [facility]; Protocol Last Admin: 12/06/19 17:00 Dose: 2 u Documented by: Levothyroxine Sodium (Synthroid) 75 mcg PO DAILY@0600 [facility] Last Admin: 12/06/19 05:45 Dose: 75 mcg Documented by: Lisinopril (Zestril) 2.5 mg PO DAILY [facility] Last Admin: 12/06/19 07:47 Dose: 2.5 mg Documented by: Magnesium Hydroxide (Milk Of Magnesia) 30 ml PO .PRN X 1 PRN PRN Reason: Constipation Last Admin: 12/06/19 09:59 Dose: 30 ml Documented by: Nitroglycerin (Nitrostat) 0.4 mg SUBLINGUAL Q5M PRN PRN Reason: Angina Pantoprazole Sodium (Protonix) 40 mg PO DAILY [facility] Last Admin: 12/06/19 07:49 Dose: 40 mg Documented by: Potassium Chloride (K-Dur) [facility] Last Admin: 12/06/19 07:51 Dose: 20 meq Documented by: Senna/Docusate Sodium (Senokot-S, Sharron-Colace) 2 tablet PO BID [facility] Last Admin: 12/06/19 07:51 Dose: 2 tablet Documented by: Sodium Chloride () 10 - 40 ml IV UD PRN PRN Reason: SALINE FLUSH Last Admin: 12/06/19 15:13 Dose: 10 ml Documented by: Assessment/Plan All Active Problems (Last Reviewed 12/07/19 @ 12:[address] Alicja Ortega, DO) Acute exacerbation of CHF (congestive heart failure) (Acute) Lactic acidosis (Resolved) Physical debility (Acute) Supratherapeutic INR (Acute) Macrocytic anemia (Acute) Acute respiratory failure with hypoxia (Acute) FILIPE (acute kidney injury) (Resolved) Hemoptysis (Resolved) History of DVT (deep vein thrombosis) (Resolved) Pneumonia (Resolved) Severe sepsis (Resolved) Impressions 1. 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 2. Acute diastolic and systolic CHF with a 35% EF - resolved 3. Recent HCAP with acute respiratory failure failure requiring BIPAP in the LLL. Still with egophony posteriorly skilled nursing up the left lung. Due to the cardiomegaly this is not clearly seen on an AP chest. May need a repeat noncontrasted CT chest in 4 to 6 weeks to document clearing. We will continue Augmentin with a stop date of 12/14/2019. 4. New macrocytic anemia-suspect secondary to blood loss with all he recent hospital admissions and BM suppression due to infection. Continue to monitor periodically 5. Supratherapeutic INR - Warfarin has been on hold - 3.3 today. Recheck in the AM 6. Recent SAS ETL DEVELOPER with FEDERICO to the RCA - on dual anti-platelet agents and Warfarin and fenofibrate(has an interaction with Warfarin)....will need to monitor the H/H closely and monitory for bruising, epistaxis, hematochezia. Will continue the Protonix. 7. PAF/VT/gout/CABG 1995/HTN/HLD/DM II/YUSUF -complicate care, management, recovery and prognosis. Continue his regular home medications. Monitor the Accu-Cheks before meals and at bedtime for a few days and if all blood sugars are less than 200 we will likely decrease the Accu-Cheks to 1-2 times daily. Will check a hemoglobin A1c in the a.m. PLAN PT for gait stability OT for ADL's Analgesics as needed Bowel protocol Fall precautions Assess for Anxiety/Depression GI prophylaxis with Protonix 40 mg daily DVT prophylaxis with teds - he is on Warfarin for PAF Follow up with Dr. Wilkinson and Dr. Lang following DC from Rehab Code Visit Inpatient E&M: [id number] Init Hosp L3
--- NOTE | 2019-12-06 20:50 | PCM.RU.PYE ---
Admission Information Primary Diagnosis:: Debility secondary to recent pneumonia and acute on chronic congestive heart failure causing weakness Status Changes from Prescreening?: No changes Identified Actual Problem List:: Bleeding, Falls, Skin Intergrity, Alteration in Nutrition, Mobility Impaired, Self Care Deficit, Diabetes, Hyperglycemia, BP, Hypertension, Fluid Change-Dehydration Potential Problem List:: Bleeding, Infection, UTI, Aspiration, Falls, Skin Integrity, Depression Risk of Complications DVT: CASEY Hose Bleeding: Monitor Lab Values, Nursing to Teach Precautions for anti-coagulation therapy., Wound, if applicable, to be assessed every shift., Stroke patients assessed for lethargy or change in status. Infection: Clinical Staff to Monitor for S/S of infection:, S/S of infection include fever, redness, warmth, etc. Urinary Tract Infection: Monitor for frequency, burning, discomfort, or incontinence., Nursing will obtain urine sample for urinalysis and C&S when ordered. Aspiration: Clinical staff will monitor for coughing, drooling, congestion., Speech will evaluate swallowing and dsyphasia., Nursing will monitor patient swallowing during meals. Falls: Patient will be evaluated for Fall Precautions, Patient will be placed on Fall Precautions as indicated per protocol. Skin Breakdown: Nursing will assess skin daily using assessment tool., Nursing will place on Skin Breakdown Precautions as indicated. Pain: Clinical staff will assess patient's pain level per protocol., Medications will be given, if needed, and the pain level reassessed., Other methods: Massage, distraction, decrease stimulus, etc. used PRN. Plan of Care Patient requires physician specializing in physical medicine and rehab oversight to provide close medical supervision of rehab issues including: Pain Management, Sleep Problems, Bowel and Bladder, Medical and co-morbidity Management, DVT prophylaxis, Rehabilitation Leadership, Coordination of treatment team Patient needs Physical Therapy: At least 5 out of 7 days, For a minimum of 1.5 hrs Patient needs Physical Therapy to improve:: Mobility, Mobility, Mobility, Strengthening, Transfers, Stretching, ROM, Endurance, Stairs, Gait, Balance Patient needs Occupational Therapy: At least 5 out of 7 days, For a minimum of 1.5 hrs Patient needs Occupational Therapy to improve ADL's incl.: Eating, Grooming, Bathing, Dressing, Toileting, Toilet transfers, Community Reintegration, Higher functioning activities, Household tasks, Adaptive Equipment, Splinting, Other activities as determined Patient requires / Rehabilitation Nursing for: Pain Issues, Identifying and preventing risk factors, Monitoring and reporting current medical conditions, Assisting with ambulation, transfer, and all ADL's, Teaching patients about disease process and medications, Family teaching, Providing safe environment, Bowel and Bladder Issues, Skin integrity, Medication Management Patient needs Director Pediatric/ Case Management for: Discharge Planning, Arranging Home Equipment or Services, Family Interventions Patient needs Dietary and Nutrition Services for: Adequate Nutrition, Nutritional Supplements, Nutritional Education Goals Patient will remain: free from falls, or injury at time of discharge. Patient will perform bed mobility at: MOD I level of assist. Patient will complete transfers from bed to chair at: MOD I level of assist. Patient will ambulate: 100 feet, with MOD I assist, with LRD Patient will complete upper body dressing at: MOD I level of assist. Patient will complete lower body dressing at: MOD I level of assist. Patient will complete toileting at: MOD I level of assist. Patient will perform bathing at: MOD I level of assist. Patient will complete grooming at: MOD I level of assist. Patient will complete home management skills at: MOD I level of assist. Patient will achieve: 12 stairs, at MOD I assist Patient will have pain level of: of 3 or less Patient's skin will: remain intact, free from infection. Patient will receive: adequate nutrition. Discharge Planning Pt Prognosis for Sig. Practical Improv. w/in Reasonable Time: Good Estimated Length of stay (days): 10 Anticipated D/C Destination: Home Was Preadmission Assessment Accurate?: Yes
[2019-12-06] MEDS: Bisacodyl 10 MG Suppository RECTAL (21:13)
[2019-12-06] MEDS: Atorvastatin Calcium 40 MG Tablet PO (21:14)
[2019-12-06] MEDS: Acetaminophen 325 MG Tablet 650 MG PO (21:29)
[2019-12-06 22:16] LABS: Bedside Glucose 202 mg/dL (70-110)
[2019-12-07] MEDS: Levothyroxine 75 MCG Tablet PO (05:52)
[2019-12-07 07:16] LABS: Bedside Glucose 142 mg/dL (70-110)
[2019-12-07 07:35] VITALS: BP 107/64; PULSE 70; RESP 16; TEMP 36.5; O2SAT 95
[2019-12-07] MEDS: Senna/Docusate Sodium 1 Tablet 2 TABLET PO ×2 (08:03→21:22)
[2019-12-07] MEDS: Aspirin 81 MG TAB.CHEW PO (08:03)
[2019-12-07] MEDS: Allopurinol 100 MG Tablet PO (08:03)
[2019-12-07] MEDS: Glimepiride 4 MG Tablet PO (08:03)
[2019-12-07] MEDS: Folic Acid 1 MG Tablet 2 MG PO (08:03)
[2019-12-07] MEDS: Clopidogrel Bisulfate 75 MG Tablet PO (08:04)
[2019-12-07] MEDS: Furosemide 40 MG Tablet PO ×2 (08:04→16:41)
[2019-12-07] MEDS: Fenofibrate 145 MG Tablet PO (08:04)
[2019-12-07] MEDS: Amiodarone 200 MG Tablet 400 MG PO (08:04)
[2019-12-07] MEDS: Lisinopril 2.5 MG Tablet PO (08:04)
[2019-12-07] MEDS: Amox/Clavulanate 875 MG Tablet PO ×2 (08:04→16:42)
[2019-12-07] MEDS: Pantoprazole Sodium 40 MG Tablet PO (08:04)
[2019-12-07] MEDS: Carvedilol 3.125 MG TABLET PO ×2 (08:04→21:22)
[2019-12-07] MEDS: Gabapentin 300 MG Capsule PO ×3 (08:04→16:42)
[2019-12-07 08:41] LABS: International Normalized Ratio 2.5; Prothrombin Time (Protime)PT. 27.4 SECONDS (11.7-14.9)
[2019-12-07 11:26] LABS: Bedside Glucose 254 mg/dL (70-110)
[2019-12-07] MEDS: Insulin Lispro 100 UNIT/ML INSULN.PEN SC ×3 (11:44→21:22)
--- NOTE | 2019-12-07 13:06 | PCM.PN.BLA ---
Progress Note Afebile VSS Maintaining appropriate oxygen saturation on a 2 L nasal cannula. Complaining of dyspnea on exertion. He is 93% on room air at rest. Oral intake is good Discussed with nursing - no problems that need addressed Reviewed the PT/OT notes Medication list reviewed. Blood sugar record reviewed. Fasting blood sugar was 142 today and the blood sugar prior to lunch is 254. Yesterday he received a total of 6 units of Humalog with meals. INR today is 2.7. Patient denies any large bruising, hematochezia, epistaxis, bleeding from his mouth and hematuria. He is complaining of shortness of breath on exertion. He also states that he feels very weak and tires easily. Heart-regular rate and rhythm, no murmur, no gallop Lungs-still with egophony in the left posterior lung longterm up. No Rales, wheezes or rhonchi. Mild conversational dyspnea. No accessory muscle use. No peripheral edema. Alert, oriented x3, appropriate, pleasant but appears to be very fatigued Impressions 1. Diabetes mellitus type 2-blood pressures are mildly elevated and he is requiring supplemental Humalog and a sliding scale. We will add Lantus 8 units subcu every morning. When all blood sugars are less than 200 will decrease the Accu-Chek frequency 2. Supratherapeutic INR-resolved. INR is 2.7 today and will restart warfarin at 2.5 mg daily. Continue daily INR until the INR is stable between 2.2 and 3. 3. acute CHF has resolved. Pt is at high risk of bleeding since he is on dual antiplatelet agents, warfarin and fenofibrate which has an interaction with warfarin increasing the bleeding risk. We will continue to monitor his hemoglobin and hematocrit closely. Continue therapy. Recheck PT/INR, BMP, CBC, magnesium in the a.m. and also check a hemoglobin A1c. Continue incentive spirometry and add PEP therapy to see if we can open up the left lower lobe. Will also prescribe Mucinex 1200 mg p.o. twice daily. Code Visit Inpatient E&M: 65240 Subs Hosp L1
--- NOTE | 2019-12-07 15:30 | CHAPLAIN ---
Type of Pastoral Visit ___ Initial Visit _x__ Follow-up Visit ___ On-call Visit ___ General Patient Visit ___ Spiritual Assessment ___ Family Conference ___ Bereavement ___ Rapid Response ___ Code Blue ___ Other (describe below) Pastoral Care Referral From _x__ Patient ___ Family ___ Nurse ___ Physician ___ Land Commissioner ___ Voice Professor ___ Other (describe below) Sacrament/Intervention _x__ Active listening ___ Anointing ___ Samaritan ___ Bereavement ___ Communion ___ Karin exploration ___ ___ Life review _x__ Prayer ___ Reconciliation ___ Sacrament of Sick ___ Supportive presence ___ Wedding ___ Other (describe below) Pastoral Comments
--- NOTE | 2019-12-07 15:58 | CASEMGMT ---
Social Work Reviewed and agreed with social work software engineer intern documentation on this date. Erika Abad, LEGISLATIVE CORRESPONDENT FISH ROD MAKER
[2019-12-07 17:15] LABS: Bedside Glucose 232 mg/dL (70-110)
[2019-12-07 19:19] VITALS: BP 114/63; PULSE 70; RESP 16; TEMP 36.9; O2SAT 94
[2019-12-07] MEDS: guaiFENesin 1,200 MG Tablet 1200 MG PO (21:21)
[2019-12-07] MEDS: Atorvastatin Calcium 40 MG Tablet PO (21:22)
[2019-12-07 21:30] LABS: Bedside Glucose 193 mg/dL (70-110)
[2019-12-07 21:42] VITALS: PULSE 70; RESP 16; O2SAT 94
--- NOTE | 2019-12-08 03:16 | NURSING ---
Reviewed and agree with PINION SORTER documentation and charting.
[2019-12-08] MEDS: Levothyroxine 75 MCG Tablet PO (05:03)
[2019-12-08 06:11] LABS: Hematocrit 34.8 % (40-54); Hemoglobin 11.5 g/dL (13.0-16.5); Mean Corpuscular Hgb 31.6 pg (27.0-32.0); Mean Corpuscular Volume 95.6 fL (80-94); Mean Platelet Vol. 11.1 fl (6.2-12.0); Platelet Count 292 K/mm3 (150-450); RBC Distribution Width CV 13.5 % (11.6-14.6); RBC Distribution Width SD 47.7 fl (35.1-43.9); Red Blood Count 3.64 M/mm3 (4.6-6.2); White Blood Count 9.4 K/mm3 (4.4-11.0)
[2019-12-08 06:21] LABS: International Normalized Ratio 2.8; Prothrombin Time (Protime)PT. 29.2 SECONDS (11.7-14.9)
[2019-12-08 06:26] LABS: Bedside Glucose 132 mg/dL (70-110)
[2019-12-08] MEDS: 0.9% Saline Lock 10 ML Syringe IV (06:32)
[2019-12-08 06:39] LABS: Anion Gap 5 (5-15); BUN 20 mg/dL (7-18); BUN/Creat Ratio 18.2 RATIO (10-20); Calcium,Total 8.8 mg/dL (8.5-10.1); Chloride 105 mmol/L (98-107); EST Glomerular Filtration Rate 68 mL/min (>60); Est Glom Filt Rate - Afr Amer 83 mL/min (>60); Estimated Creatinine Clearance 49.24 ml/min; Glucose 137 mg/dL (74-106); Magnesium 2.2 mg/dL (1.6-2.6); Sodium Level 136 mmol/L (136-145)
[2019-12-08 07:03] VITALS: O2SAT 94
[2019-12-08] MEDS: Lisinopril 2.5 MG Tablet PO (07:42)
[2019-12-08] MEDS: Furosemide 40 MG Tablet PO ×2 (07:43→17:18)
[2019-12-08] MEDS: Pantoprazole Sodium 40 MG Tablet PO (07:43)
[2019-12-08] MEDS: guaiFENesin 1,200 MG Tablet 1200 MG PO ×2 (07:43→20:02)
[2019-12-08] MEDS: Clopidogrel Bisulfate 75 MG Tablet PO (07:43)
[2019-12-08] MEDS: Folic Acid 1 MG Tablet 2 MG PO (07:43)
[2019-12-08] MEDS: Senna/Docusate Sodium 1 Tablet 2 TABLET PO ×2 (07:43→20:02)
[2019-12-08] MEDS: Allopurinol 100 MG Tablet PO (07:44)
[2019-12-08] MEDS: Glimepiride 4 MG Tablet PO (07:44)
[2019-12-08] MEDS: Amiodarone 200 MG Tablet 400 MG PO (07:44)
[2019-12-08] MEDS: Fenofibrate 145 MG Tablet PO (07:44)
[2019-12-08] MEDS: Amox/Clavulanate 875 MG Tablet PO ×2 (07:44→17:17)
[2019-12-08] MEDS: Carvedilol 3.125 MG TABLET PO ×2 (07:44→20:02)
[2019-12-08] MEDS: Gabapentin 300 MG Capsule PO ×3 (07:44→17:17)
[2019-12-08] MEDS: Aspirin 81 MG TAB.CHEW PO (07:44)
[2019-12-08 07:49] VITALS: BP 102/57; PULSE 70; RESP 16; TEMP 36.8; O2SAT 93
[2019-12-08 08:07] LABS: Hemoglobin A1c 8.6 % (4.2-6.3)
[2019-12-08 11:46] LABS: Bedside Glucose 242 mg/dL (70-110)
[2019-12-08] MEDS: Insulin Lispro 100 UNIT/ML INSULN.PEN SC ×2 (11:49→17:18)
--- NOTE | 2019-12-08 13:25 | PCM.PN.BLA ---
Progress Note Afebrile Vital signs are stable Pulse ox is 93 to 94% on a 2 L nasal cannula. Appetite is decreased and fluid intake is fair to poor All lab was personally reviewed. White blood cell count is 9.4. Hemoglobin is 11.5 which is stable. Platelets are within normal limits. The INR today is 2.8, up from 2.5 yesterday and he received 2.5 mg of warfarin last evening at 5 PM. The BMP shows a potassium of 4.0 and a BUN of 20 with a creatinine of 1.1. Hemoglobin A1c is 8.6. He received the first dose of Lantus 8 units this AM. Alert, appears tired. Lungs - BS's in the left base are decreased and he continues to have egophony, the right base is CTA with good air exchange. H - RRR, no gallop no peripheral edema Impressions 1. debility due to recent HCAP and acute respiratory failure with hypoxemia requiring BIPAP and tx in the ICU 2. recent acute on chronic systolic CHF - resolved 3. Supratherapeutic INR 4. DM II 5. poor appetite Decrease the Warfarin dose to 2 mg daily at 5 and continue to check daily INR until stable Increase Lantus to 12 units daily Change the SSI to TID AC Code Visit Inpatient E&M: 47558 Subs Hosp L1
[2019-12-08 14:35] LABS: Prothrombin Time (Protime)PT. 31.4 SECONDS (11.7-14.9)
[2019-12-08 16:26] LABS: Bedside Glucose 208 mg/dL (70-110)
[2019-12-08 19:38] VITALS: BP 121/65; PULSE 70; RESP 20; TEMP 37.2; O2SAT 96
[2019-12-08 19:45] VITALS: PULSE 70; RESP 20; O2SAT 96
[2019-12-08] MEDS: Atorvastatin Calcium 40 MG Tablet PO (20:02)
[2019-12-08] MEDS: Magnesium Hydroxide 30 ML UDC PO (20:02)
[2019-12-08 22:21] LABS: Bedside Glucose 189 mg/dL (70-110)
--- NOTE | 2019-12-08 23:49 | NURSING ---
staff to assess pt at 1945, pt rang to go to bed-superintendent seed mill reported that pt refused any hs care . pt stated that he felt rough and had no appetite and no food looked good. pt declined fruit and chicken that spouse brought in for pt to eat. pt noted to have a flat affect when speaking with staff. pt reports that his is constipated . pt to check abd and found no abnormalities. abd is nontender, bs present x's 4 quads. pt given MOM per staff suggestion and took ordered stool softners. per staff report pt intake had been poor and pt encouraged to increased his fluids this hs and did drink a full glass of water. pt denied any discomfort other than his normal.
--- NOTE | 2019-12-09 01:10 | NURSING ---
0030 pt bladder scanned d/t low urine output recorded,. pt had just voided 275cc of hallie colored urine, bladder scan showed pt had 138cc in bladder. last bladder scan completed
--- NOTE | 2019-12-09 02:27 | NURSING ---
Reviewed and agree with GRINDER SET UP OPERATOR INTERNAL documentation and charting.
[2019-12-09] MEDS: Levothyroxine 75 MCG Tablet PO (05:52)
--- NOTE | 2019-12-09 05:57 | NURSING ---
pt awake and vs take and bp noted to be low, at 99/61 ap was 69 and pt is afebrile. pt denied any dizziness or light headedness. pt took a shower with out incident and then ambulated out to the recliner.. SPO@ was rechecked at this time and was 92-93% on room air. pt was placed back on oxygen and was decreased to 1l/m via n/c. pt SPO2 maintained at 93-94%. pt given PEEP to do and SPO2 increased to 95% on 1l/m of 02. pt encouraged to drink a glass of water for this am, urine is still a dark hallie color. pt then proceeded to have dry heaves after using PEEP. rn made aware. pt dozes off easily in the recliner. call light in reach
[2019-12-09 06:00] LABS: International Normalized Ratio 3.3; Prothrombin Time (Protime)PT. 33.9 SECONDS (11.7-14.9)
[2019-12-09 07:06] LABS: Bedside Glucose 148 mg/dL (70-110)
[2019-12-09 07:30] VITALS: O2SAT 93
[2019-12-09 07:58] VITALS: BP 108/59; PULSE 69; RESP 16; TEMP 36.8; O2SAT 97
[2019-12-09] MEDS: Glimepiride 4 MG Tablet PO (08:04)
[2019-12-09] MEDS: Gabapentin 300 MG Capsule PO ×3 (08:05→16:35)
[2019-12-09] MEDS: Amox/Clavulanate 875 MG Tablet PO ×2 (08:05→16:35)
[2019-12-09] MEDS: Fenofibrate 145 MG Tablet PO (08:05)
[2019-12-09] MEDS: Aspirin 81 MG TAB.CHEW PO (08:05)
[2019-12-09] MEDS: Carvedilol 3.125 MG TABLET PO ×2 (08:05→20:27)
[2019-12-09] MEDS: Amiodarone 200 MG Tablet 400 MG PO (08:05)
[2019-12-09] MEDS: Allopurinol 100 MG Tablet PO (08:05)
[2019-12-09] MEDS: Clopidogrel Bisulfate 75 MG Tablet PO (08:06)
[2019-12-09] MEDS: Senna/Docusate Sodium 1 Tablet 2 TABLET PO ×2 (08:06→20:31)
[2019-12-09] MEDS: guaiFENesin 1,200 MG Tablet 1200 MG PO ×2 (08:06→20:27)
[2019-12-09] MEDS: Pantoprazole Sodium 40 MG Tablet PO (08:06)
[2019-12-09] MEDS: Furosemide 40 MG Tablet PO ×2 (08:06→16:35)
[2019-12-09] MEDS: Folic Acid 1 MG Tablet 2 MG PO (08:06)
[2019-12-09] MEDS: Lisinopril 2.5 MG Tablet PO (08:07)
[2019-12-09 11:46] LABS: Bedside Glucose 252 mg/dL (70-110)
[2019-12-09] MEDS: Dronabinol 2.5 MG Capsule PO (16:35)
[2019-12-09] MEDS: Mirtazapine 15 MG Tablet PO (20:27)
[2019-12-09] MEDS: Atorvastatin Calcium 40 MG Tablet PO (20:27)
[2019-12-09 21:25] VITALS: BP 106/58; PULSE 70; RESP 18; TEMP 36.1; O2SAT 97
[2019-12-09 22:05] LABS: Bedside Glucose 215 mg/dL (70-110)
[2019-12-10] MEDS: Levothyroxine 75 MCG Tablet PO (05:04)
[2019-12-10 05:36] LABS: Bedside Glucose 103 mg/dL (70-110)
[2019-12-10 06:07] LABS: Prothrombin Time (Protime)PT. 39.5 SECONDS (11.7-14.9)
[2019-12-10] MEDS: Dronabinol 2.5 MG Capsule PO ×2 (07:43→16:37)
[2019-12-10 07:48] VITALS: BP 111/63; PULSE 83; RESP 17; TEMP 36.7; O2SAT 93
[2019-12-10] MEDS: Allopurinol 100 MG Tablet PO (07:51)
[2019-12-10] MEDS: Fenofibrate 145 MG Tablet PO (07:51)
[2019-12-10] MEDS: Amox/Clavulanate 875 MG Tablet PO ×2 (07:51→16:37)
[2019-12-10] MEDS: Amiodarone 200 MG Tablet 400 MG PO (07:51)
[2019-12-10] MEDS: Aspirin 81 MG TAB.CHEW PO (07:51)
[2019-12-10] MEDS: Glimepiride 4 MG Tablet PO (07:51)
[2019-12-10] MEDS: Gabapentin 300 MG Capsule PO ×3 (07:51→16:37)
[2019-12-10] MEDS: Pantoprazole Sodium 40 MG Tablet PO (07:52)
[2019-12-10] MEDS: Clopidogrel Bisulfate 75 MG Tablet PO (07:52)
[2019-12-10] MEDS: Senna/Docusate Sodium 1 Tablet 2 TABLET PO (07:52)
[2019-12-10] MEDS: Furosemide 40 MG Tablet PO ×2 (07:52→16:37)
[2019-12-10] MEDS: guaiFENesin 1,200 MG Tablet 1200 MG PO ×2 (07:52→20:32)
[2019-12-10] MEDS: Folic Acid 1 MG Tablet 2 MG PO (07:52)
[2019-12-10] MEDS: Carvedilol 3.125 MG TABLET PO ×2 (07:52→20:31)
[2019-12-10] MEDS: Lisinopril 2.5 MG Tablet PO (07:53)
[2019-12-10 08:09] VITALS: O2SAT 92
--- NOTE | 2019-12-10 10:34 | CASEMGMT ---
Social Work IDT met with pt, , and son for team meeting. Pt walking 105ft with walker but fatigues easily. Pt able to do step over step for stairs using 1 HR. Pt SBA for all transfers and SBA for all ADLS except: CGA for showers, min assist for LE bathing and to put on shoes. Educated pt to coverage, has been given 12 days, DC 3/5. Pt has residual pneumonia, pt to be weekend off of O2. Pt has CHF and SW t work on getting hosp. bed upon DC. Encouraging fluids and is on appetite stimulate as he has poor PO intake. Karla Sexton, social work corporate strategy intern Erika Abad, BORING MACHINE FEEDER SCREW DOWN
--- NOTE | 2019-12-10 10:58 | PCM.PN.BLA ---
Progress Note Patient was seen on team rounds today. His and son were present for rounds. Afebile VSS Maintaining appropriate oxygen saturation on RA - this is the first day he has been able to come off the oxygen. He is maintaining a saturation of 92-93% Oral intake is improving. He was started on Marinol yesterday and this morning he ate 50% of his breakfast and 50% of lunch today. He is also on mirtazapine 15 mg nightly to stimulate appetite. When his appetite is consistently good will trial being off Marinol. He tool 1070 in fluids already today.....has been doing < 700 most days. Discussed with nursing - no problems that need addressed other than appetite Reviewed the PT/OT notes Medication list reviewed. BS record reviewed. FBS is 103 today. 1 BS > 200 yesterday and it was 252. The sliding scale was discontinued yesterday. Denies lightheadedness. Still needing to sleep with the HOB elevated to improve breathing. Slept well last night. Denies CP. No longer coughing. No SOB at rest. He feels like he fatigues easily with exercise Lab was personally reviewed. INR is 4.0 today despite holding warfarin last night. This is more likely than not due to poor intake. Alert and oriented X 3, pleasant, appropriate, no apparent distress Lungs- still with diminished BS's in the left base but, less egophony today Heart-regular rate and rhythm, no gallop Abdomen-soft, nontender, nondistended, normal bowel sounds heard in all 4 quadrants No edema Impressions 1. Diabetes mellitus type 2-blood sugars are erratic due to the variable intake. Better appetite today with the addition of the Marinol to his drug regimen. When all blood sugars are less than 220 will decrease the Accu-Chek frequency. 2. Supratherapeutic INR-resolved but as soon as the Warfarin was restarted the INR started increasing. and it is now on hold. 3. acute CHF has resolved. 4. LLL PNA - egophony is getting better - should have a F/U CT of the chest in 4-6 weeks to make sure it has completely resolved. It is not well seen on a AP chest due to the cardiomegaly....he did not have a PA and Lateral during his acute hospital stay. Spent 30 minutes educating/counselling the patient and his family about how to manage CHF to prevent readmissions to the hospital. Had not been weighing himself at home. had a lot of questions about salt restriction and cooking. Catherine RAMIRO came up and talked with pt and about salt restriction and fluid restriction. 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 continue to monitor the BS's AC and HS and adjust meds as necessary to keep all the BS's < 220. Recheck the INR in the AM. No bleeding complications so no Vitamin K.....will allow the INR to drift down and will need to monitor closely when the appetite increases. Will discuss with Dr. Wilkinson whether we can consider Eliquis rather than Warfarin........managing the Warfarin dose is very difficult given the changes in diet STROKE Vital Signs/Narrative: Vital Signs Temp Pulse Resp BP Pulse Ox 12/10/19 08:09 92 12/10/19 07:48 98.0 F 83 17 111/63 93 Code Visit Inpatient E&M: 88022 Subs Hosp L2
[2019-12-10 11:36] LABS: Bedside Glucose 212 mg/dL (70-110)
[2019-12-10 19:28] VITALS: BP 120/67; PULSE 70; RESP 18; TEMP 36.8; O2SAT 95
[2019-12-10 20:31] VITALS: PULSE 70; O2SAT 94
[2019-12-10] MEDS: Atorvastatin Calcium 40 MG Tablet PO (20:32)
[2019-12-10 20:35] VITALS: O2SAT 94
[2019-12-10] MEDS: Mirtazapine 15 MG Tablet PO (20:36)
[2019-12-10 22:15] LABS: Bedside Glucose 232 mg/dL (70-110)
[2019-12-11] MEDS: Levothyroxine 75 MCG Tablet PO (04:44)
[2019-12-11] MEDS: Dronabinol 2.5 MG Capsule PO (04:45)
[2019-12-11 06:08] LABS: Prothrombin Time (Protime)PT. 35.4 SECONDS (11.7-14.9)
[2019-12-11 06:15] LABS: International Normalized Ratio 3.5
[2019-12-11] MEDS: Magnesium Hydroxide 30 ML UDC PO (06:39)
[2019-12-11 06:45] LABS: Bedside Glucose 167 mg/dL (70-110)
[2019-12-11] MEDS: Fenofibrate 145 MG Tablet PO (08:28)
[2019-12-11] MEDS: Amox/Clavulanate 875 MG Tablet PO (08:28)
[2019-12-11] MEDS: Allopurinol 100 MG Tablet PO (08:28)
[2019-12-11] MEDS: Glimepiride 4 MG Tablet PO (08:28)
[2019-12-11] MEDS: Gabapentin 300 MG Capsule PO ×2 (08:28→13:01)
[2019-12-11] MEDS: Aspirin 81 MG TAB.CHEW PO (08:28)
[2019-12-11] MEDS: Amiodarone 200 MG Tablet 400 MG PO (08:29)
[2019-12-11] MEDS: Folic Acid 1 MG Tablet 2 MG PO (08:29)
[2019-12-11] MEDS: Carvedilol 3.125 MG TABLET PO (08:29)
[2019-12-11] MEDS: Senna/Docusate Sodium 1 Tablet 2 TABLET PO (08:30)
[2019-12-11] MEDS: guaiFENesin 1,200 MG Tablet 1200 MG PO (08:30)
[2019-12-11] MEDS: Pantoprazole Sodium 40 MG Tablet PO (08:30)
[2019-12-11] MEDS: Clopidogrel Bisulfate 75 MG Tablet PO (08:30)
[2019-12-11] MEDS: Furosemide 40 MG Tablet PO (08:30)
[2019-12-11] MEDS: Lisinopril 2.5 MG Tablet PO (08:31)
--- NOTE | 2019-12-11 08:50 | NURSING ---
pt had small emesis with medical front desk specialist at this time. pt requested crushed pills and emesis was color of crushed pills and thick in consistency. pt sipped on water and apologetic for the emesis. pt states he feels better.
[2019-12-11 10:00] VITALS: BP 105/57; PULSE 70; RESP 18; TEMP 36.7; O2SAT 95
--- NOTE | 2019-12-11 10:40 | RAD_ITS ---
EXAM DESCRIPTION: PORTABLE AP CHEST CLINICAL HISTORY: 79 years Male, SOB SOB COMPARISON: Precyst obtained on 12/03/2019 FINDINGS: A left cardiac pacemaker is noted in place. Sternotomy sutures are also seen. The rest of the thorax is intact. The heart size cannot be adequately determined due to a large left pleural effusion. The mediastinum appears to be within normal limits. The right lung is normal. There is a large left lung pleural effusion which has increased when compared with the previous study. An underlying pneumonic consolidation can''t be completely excluded. RAD/Chest PA and Lateral IMPRESSION: A left cardiac pacemaker is noted in place in this patient with a large left lung base pleural effusion which has increased. An underlying left lung pneumonic consolidation cannot be excluded. Electronically Signed: Juan Wren, at 13:08 EST Tel , Service support ,
--- NOTE | 2019-12-11 11:17 | PCM.PN.BLA ---
Progress Note Patient is an 79-year-old male admitted to the rehab unit for physical debility secondary to recent left lower lobe pneumonia and acute on chronic congestive heart failure. Appetite has been very poor until he was started on Marinol and appetite has been increasing. He ate 100% of his breakfast today and then took his meds and unfortunately had an emesis. Tells me that his pills make him sick every morning. Afebrile Vital signs are stable and well controlled. He is maintaining an appropriate O2 sat during the day when on RA but wears O2 at night and PRN. weight is up 1 and 1/2 lbs today. Fluid intake on 227 was much better and he had 1430 in but had 2175 out for a fluid balance of -745 yesterday. Blood sugar record was reviewed. Blood sugars are fairly well controlled. No hypoglycemia. Alert, appears more pale and fatigued after emesis Lungs - still with egophony in the left base but now very diminished 3/[address] the L posterior lung with poor air exchange. no wheezing. He has conversational dyspnea and when he came back from Radiology he was having chills. Heart - regular, no gallop abdomen -soft, nontender, nondistended, bowel sounds heard No peripheral edema Chest x-ray was obtained and shows new infiltrate in the left mid to upper lung with no pleural effusions Impressions 1. New pneumonia in the left mid/upper lung. Possibly aspiration. AF but having chills and conversational dyspnea. Will get CBC with diff, BMP, lactic acid and a stat CT of the chest without contrast. I have a strong suspicion that he is going to need transferred to the acute side of the hospital. I called his Lizet and updated her on what is going on. Pt was also updated with the plan of care and possible transfer. Will need to address the N/V he gets in the mornings with administration of his pills. Code Visit Inpatient E&M: 55050 Subs Hosp L3
--- NOTE | 2019-12-11 11:32 | CT_ITS ---
STUDY: CT CHEST WITHOUT CONTRAST REASON FOR EXAM: Male, 79 years old. HYPOXIA with pneumonia RADIATION DOSAGE (If Supplied By Facility): CTDIvol = ( 17.90 ) mGy, DLP = ( 716.35 ) mGycm TECHNIQUE: Transaxial imaging was performed without the administration of intravenous contrast material. Coronal and sagittal reconstruction images were also reviewed. Individualized dose optimization techniques were used for this CT. COMPARISON: None. FINDINGS: The right lung is normal. In the left lung there is a large loculated pleural effusion which is compressing the left lower lobe. There is also compressing the left upper lobe, to a lesser extent.. There is total collapse of the left lower lobe which appears somewhat deformed due to scarring. There is a linear area calcification involving the left ventricular wall probably due to a previous myocardial infarction with scarring. Coronary calcific arteriosclerosis is also identified with multiple surgical clips from previous coronary artery bypass grafts. Normal mediastinum. Normal hilar regions. Normal unenhanced pulmonary arteries. Normal aorta arch and descending thoracic aorta. Normal osseous structures. There is no demonstrated abnormality of the visualized upper abdomen. CT/Chest without Contrast IMPRESSION: 1. A large loculated pleural effusion is noted in the left lung causing collapse and consolidation with scarring of the left lower lobe with compression of the left upper lobe. 2. 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 3. A left cardiac pacemaker is noted in place. Electronically Signed: Juan Wren, at 13:50 EST Tel , Service support ,
[2019-12-11 11:35] VITALS: BP 120/61; PULSE 70; RESP 18; TEMP 36.4; O2SAT 94
[2019-12-11 12:20] LABS: Absolute Neutrophil Count 6.5 X10^3/uL (2.0-7.7); Basophil# 0.08 X10^3/uL; Eosinophil# 0.25 X10^3/uL; Eosinophils% 3.1 % (0-5); Hematocrit 36.9 % (40-54); Hemoglobin 12.1 g/dL (13.0-16.5); Lymphocyte % 6.1 % (19-41); Mean Corp Hgb Conc 32.8 g/dL (32-36); Mean Corpuscular Volume 94.6 fL (80-94); Mean Platelet Vol. 11.1 fl (6.2-12.0); Monocyte# 0.81 X10^3/uL; Monocyte% 9.9 % (0-10); NRBC Flagged by Analyzer 0 % (0-5); Neutrophil % 79.4 % (47-70); POSITIVE DIFFERENTIAL YES; Platelet Count 358 K/mm3 (150-450); RBC Distribution Width CV 13.6 % (11.6-14.6); RBC Distribution Width SD 47.1 fl (35.1-43.9); White Blood Count 8.2 K/mm3 (4.4-11.0)
[2019-12-11 12:21] LABS: Differential Indicated SCAN CRITERIA MET
[2019-12-11 12:38] LABS: Anion Gap 6 (5-15); BUN 20 mg/dL (7-18); BUN/Creat Ratio 14.6 RATIO (10-20); Chloride 101 mmol/L (98-107); Creatinine, Serum 1.37 mg/dL (0.70-1.30); EST Glomerular Filtration Rate 53 mL/min (>60); Est Glom Filt Rate - Afr Amer 64 mL/min (>60); Estimated Creatinine Clearance 39.54 ml/min; Glucose 238 mg/dL (74-106); Potassium 4.7 mmol/L (3.5-5.1); Sodium Level 132 mmol/L (136-145)
[2019-12-11 12:42] LABS: Lactic Acid 1.8 mmol/L (0.4-1.9)
[2019-12-11 12:44] LABS: Differential Comment SCANNED
[2019-12-11 12:50] LABS: Bedside Glucose 208 mg/dL (70-110)
--- NOTE | 2019-12-11 13:05 | NURSING ---
and patient aware of Doctor Jordan's decision to transfer patient to the ICU. Patient in no distress and resting in recliner in room.
--- NOTE | 2019-12-11 13:10 | PCM.DC.SUM ---
Discharge Date and Diagnosis - Problem List Patient Problems: Active and Suspected Problems (Last Reviewed 12/07/19 @ 12:[address] Alicja Ortega DO) Physical debility (Acute) Due to recent admission for PNA, CHF and hypotension. Supratherapeutic INR (Acute) Macrocytic anemia (Acute) Date of Admission: 12/05/19 Date of Discharge: 12/11/19 - Primary Discharge Diagnosis Active and Suspected Problems (Last Reviewed 12/07/19 @ 12:[address] Alicja Ortega DO) Large Left pleural effusion compressing the left lung Acute respiratory insufficiency with hypoxia Physical debility (Acute) Due to recent admission for consolidating PNA and pleural effusion L base, CHF and acute respiratory failure requiring BiPAP rescue Supratherapeutic INR (Acute) Macrocytic anemia (Acute) - stable Hyponatremia - Secondary Discharge Diagnosis Chronic Problems (Last Reviewed 12/07/19 @ 12:[address] 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 to the RCA at [facility] in early November Presence of stent of bypass graft (Chronic ~11/23/19) PCI/FEDERICO to the SVG to RCA @[facility] 11/23/19 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 (Chronic ~04/20/02) Paroxysmal atrial fibrillation (Chronic) History of myocardial infarction (Chronic) Type 2 diabetes mellitus (Chronic) Atrioventricular block (Chronic) has a PM/AICD Paroxysmal ventricular tachycardia (Chronic) Premature ventricular contraction (Chronic) Aortocoronary bypass status (Chronic ~06/18/96) CABG x3 - KO to diag, SVG to RCA and SVG to RCA 06/18/1996 Ischemic cardiomyopathy (Chronic) with a 35% EF Atherosclerotic heart disease of [place] coronary artery without angina pectoris (Chronic) CABG x3 - KO to diag, SVG to RCA and SVG to RCA 06/18/1996 USP (current) use of anticoagulants (Chronic) Warfarin CKD (chronic kidney disease), stage III (Chronic) HLD (hyperlipidemia) (Chronic) Hospital Course and Treatment Imaging Results: 12/11/19 10:40 Xray Chest [Chest PA and Lateral] [RAD] Routine 12/11/19 11:32 CT Chest [Chest without Contrast] [CT] Urgent Clinical Impression(s) from Imaging Studies Chest X-Ray 12/11/19 10:40 IMPRESSION: A left cardiac pacemaker is noted in place in this patient with a large left lung base pleural effusion which has increased. An underlying left lung pneumonic consolidation cannot be excluded. Electronically Signed: Juna Wren, at 13:08 EST Tel , Service support , Laboratory Results - last 24 hr 12/10/19 12/11/19 12/11/19 21:51 05:28 06:37 WBC RBC Hgb Hct MCV MCH MCHC RDW Std Deviation RDW Coeff of Gavino Plt Count MPV Immature Gran % (Auto) Neut % (Auto) Lymph % (Auto) Prentiss % (Auto) Eos % (Auto) Baso % (Auto) Absolute Neuts (auto) Absolute Lymphs (auto) Nucleated RBC % Differential Comment PT 35.4 H INR 3.5 H* Sodium Potassium Chloride Carbon Dioxide Anion Gap BUN Creatinine Estim Creat Clear Calc Est GFR (MDRD) Af Amer Est GFR (MDRD) Non-Af BUN/Creatinine Ratio Glucose Lactic Acid Calcium POC Glucose 232 H 167 H 12/11/19 12/11/19 12/11/19 12:05 12:05 12:05 WBC 8.2 RBC 3.90 L Hgb 12.1 L Hct 36.9 L MCV 94.6 H MCH 31.0 MCHC 32.8 RDW Std Deviation 47.1 H RDW Coeff of Gavino 13.6 Plt Count 358 MPV 11.1 Immature Gran % (Auto) 0.500 Neut % (Auto) 79.4 H Lymph % (Auto) 6.1 L Prentiss % (Auto) 9.9 Eos % (Auto) 3.1 Baso % (Auto) 1.0 Absolute Neuts (auto) 6.5 Absolute Lymphs (auto) 0.50 L Nucleated RBC % 0 Differential Comment SCANNED PT INR Sodium 132 L Potassium 4.7 Chloride 101 Carbon Dioxide 25.0 Anion Gap 6 BUN 20 H Creatinine 1.37 H Estim Creat Clear Calc 39.54 Est GFR (MDRD) Af Amer 64 Est GFR (MDRD) Non-Af 53 L BUN/Creatinine Ratio 14.6 Glucose 238 H Lactic Acid 1.8 Calcium 9.0 POC Glucose 12/11/19 12:46 WBC RBC Hgb Hct MCV MCH MCHC RDW Std Deviation RDW Coeff of Gavino Plt Count MPV Immature Gran % (Auto) Neut % (Auto) Lymph % (Auto) Prentiss % (Auto) Eos % (Auto) Baso % (Auto) Absolute Neuts (auto) Absolute Lymphs (auto) Nucleated RBC % Differential Comment PT INR Sodium Potassium Chloride Carbon Dioxide Anion Gap BUN Creatinine Estim Creat Clear Calc Est GFR (MDRD) Af Amer Est GFR (MDRD) Non-Af BUN/Creatinine Ratio Glucose Lactic Acid Calcium POC Glucose 208 H none Operations: None Procedures: None Summary of Care Provided: The patient is a 79 year old M with a past medical history of hypertension, hyperlipidemia, diabetes mellitus type 2, diabetic peripheral polyneuropathy in both lower extremities, coronary artery disease, CABG in 1995, PTCA with FEDERICO to the SVG to RCA at [facility] in November 2019, ischemic cardiomyopathy with a 35% ejection fraction, diastolic dysfunction, paroxysmal ventricular tachycardia on amiodarone, paroxysmal atrial fibrillation, gout, obstructive sleep apnea compliant with PAP therapy, remote hx of DVT UE, chronic anticoagulation with warfarin, supratherapeutic INR and recent admission to the [facility] ICU for [facility] care acquired pneumonia with acute hypoxic respiratory failure requiring BIPAP and acute on chronic systolic CHF. He finished an appropriate course of antibiotics. He was weak and unable to go home so he was admitted to the inpatient rehab unit on 12/05/19 for who is admitted to the inpatient rehab unit at [facility] for greater than 3 hours of therapy daily with a goal of returning him home at or near his prior level of independence. Prior to October he was fully independent and ambulated without an assistive device. 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 At the time of admission to the IPRU he was very fatigued and his appetite and intake were very poor. He was still having orthopnea and he did not feel well. He was able to be weaned off oxygen and on 12/10/2019 his O2 saturation ranged from 92 to 95% on room air. He was started on Marinol 2.5 mg twice daily to stimulate appetite and this was quite effective. He tolerated the Marinol with no change in mental status. On the morning of 12/11 he ate 100% of his breakfast but then he was given his morning meds and he had an emesis. He told me today that he gets nauseated with his medication in the AM. Post emesis he had conversational dyspnea. His color was pale and he had markedly diminished BS's and the left with egophony. He had some coarse crackles on the R but these resolved after a few deep breaths. CXR showed a very large left lung base pleural effusion which had increased since his prior chest x-ray and underlying left lung pneumonic consolidation could not be excluded. Lab showed a normal WBC count of 8.2 with a left shift. Lactic acid was normal at 1.8. Creat had increased from 1.1 to 1.37. Potassium was 4. INR was 3.5 and had been difficult to regulate due to poor/variable intake. It has been held for 48 hours at the time of discharge. A NONCONTRASTED CT chest was obtained and reviewed by myself with the radiologist and the photo stylist (Dr. Oscar Fisher). Dr. Fisher feels that the effusion is loculated and there is concern for an empyema since he recently had a consolidating PNA in the left base with a pleural effusion. The right lung is clear and there is no effusion. He is fully anticoagulated at this time and Dr. Fisher recommended transfer to a tertiary care facility where a cardiothoracic surgeon would be available. Since he was at [facility] earlier in the month for a cardiac stent and they know him a call was placed to [facility] and they graciously accepted Mr. Dunn in transfer. He will be sent by ambulance to [facility] and will go to the emergency room to be seen by Dr. Freire. Prior to DC he received 4.5 GM of Zosyn and 1,250 mg of Vancomycin for suspected empyema. Blood cultures X 2 were obtained. He has been afebrile for the duration of his stay in rehab and his VS have been stable. The pt and his Lizet were agreeable to the transfer and we assured them both that Marcial will be accepted back to the rehab unit at [facility] from [facility] if he needs additional therapy prior to returning home. Alert, oriented x3, looks very fatigued, his color is poor and appears pale/yellow Lungs - markedly diminished on the Left throughout the left lung with egophony in the left base. R lung is CTA with good air exchange. Heart - RRR, no gallop abd - soft, NT, ND, BS's heard in all 4 quadrants no peripheral edema. I observed him having rigors this morning and at the time he also had conversational dyspnea. When the rigors resolved the dyspnea improved. He gets tachypneic with exertion This note was generated with [employer] dictation software. It may contain incorrect words, spelling, and punctuation that were not noted in checking the note before signing. Patient Problems: Active and Suspected Problems (Last Reviewed 12/07/19 @ 12:[address] Alicja Ortega, ) Physical debility (Acute) Due to recent admission for PNA, CHF and hypotension. Supratherapeutic INR (Acute) Macrocytic anemia (Acute) - Physical Exam Vitals/I&O's: Vital Signs Temp Pulse Resp BP Pulse Ox 97.5 F L 70 18 120/61 94 12/11/19 11:35 12/11/19 11:35 12/11/19 11:35 12/11/19 11:35 12/11/19 11:35 Oxygen Flow Rate (L/min) 2 Oxygen Delivery Method Nasal Cannula Weight: 190 lb 7.67 oz Body Mass Index (BMI) 29.7 Finger Stick Blood Glucose 190 Intake and Output for Last 24 Hours 12/09/19 12/10/19 12/11/19 23:59 23:59 23:59 Intake Total 735 / 1095 1430 / 1430 480 / 480 Output Total 575 / 975 2175 / 2175 900 / 900 Balance 160 / 120 -745 / -745 -420 / -420 Laboratory Results 12/10/19 21:51: POC Glucose 232 H 12/11/19 05:28: PT 35.4 H, INR 3.5 H* 12/11/19 06:37: POC Glucose 167 H 12/11/19 12:05: Sodium 132 L, Potassium 4.7, Chloride 101, Carbon Dioxide 25.0, Anion Gap 6, BUN 20 H, Creatinine 1.37 H, Estim Creat Clear Calc 39.54, Est GFR (MDRD) Af Amer 64, Est GFR (MDRD) Non-Af 53 L, BUN/Creatinine Ratio 14.6, Glucose 238 H, Calcium 9.0 12/11/19 12:05: WBC 8.2, RBC 3.90 L, Hgb 12.1 L, Hct 36.9 L, MCV 94.6 H, MCH 31.0, MCHC 32.8, RDW Std Deviation 47.1 H, RDW Coeff of Gavino 13.6, Plt Count 358, MPV 11.1, Immature Gran % (Auto) 0.500, Neut % (Auto) 79.4 H, Lymph % (Auto) 6.1 L, Prentiss % (Auto) 9.9, Eos % (Auto) 3.1, Baso % (Auto) 1.0, Absolute Neuts (auto) 6.5, Absolute Lymphs (auto) 0.50 L, Nucleated RBC % 0, Differential Comment SCANNED 12/11/19 12:05: Lactic Acid 1.8 12/11/19 12:46: POC Glucose 208 H Current Medications Acetaminophen (Tylenol) 650 mg PO Q6H PRN PRN PRN Reason: Pain Score 1-10/Temp > 100.7 F Last Admin: 12/06/19 21:29 Dose: 650 mg Documented by: [facility] ([facility]op[facility]) [facility] Last Admin: 12/11/19 08:28 Dose: 100 mg Documented by: Amiodarone HCl (Cordarone) 400 mg PO DAILY [facility] Last Admin: 12/11/19 08:29 Dose: 400 mg Documented by: Amoxicillin/Clavulanate Potassium (Augmentin Tablet) 875 [facility] Stop: 12/14/19 17:01 Last Admin: 12/11/19 08:28 Dose: 875 mg Documented by: Aspirin (Aspirin, Baby) 81 [facility] Last Admin: 12/11/19 08:28 Dose: 81 mg Documented by: Atorvastatin Calcium (Lipitor) 40 mg PO QHS [facility] Last Admin: 12/10/19 20:32 Dose: 40 mg Documented by: Bisacodyl (Dulcolax) 10 mg RECTAL .PRN X 1 PRN PRN Reason: Constipation Last Admin: 12/06/19 21:13 Dose: 10 mg Documented by: Carvedilol (Coreg) 3.125 mg PO BID [facility] Last Admin: 12/11/19 08:29 Dose: 3.125 mg Documented by: Cholecalciferol (Vitamin D (25mcg)) 1,000 unit PO DAILY [facility] Last Admin: 12/11/19 08:30 Dose: 1,000 unit Documented by: Clopidogrel Bisulfate (Plavix) 75 mg PO DAILY [facility] Last Admin: 12/11/19 08:30 Dose: 75 mg Documented by: Colestipol HCl (Colestid Tablet) 1 gm PO BID [facility] Last Admin: 12/11/19 08:28 Dose: 1 gm Documented by: Dronabinol (Marinol) 2.5 mg PO BID@0630,1730 [facility] Last Admin: 12/11/19 04:45 Dose: 2.5 mg Documented by: Fenofibrate (Tricor) 145 mg PO DAILYCM [facility] Last Admin: 12/11/19 08:28 Dose: 145 mg Documented by: Folic Acid (Folic Acid) 2 mg PO DAILY [facility] Last Admin: 12/11/19 08:29 Dose: 2 mg Documented by: Furosemide (Lasix) 40 mg PO 1000,1600 [facility] Last Admin: 12/11/19 08:30 Dose: 40 mg Documented by: Gabapentin (Neurontin) 300 mg PO TIDCM [facility] Last Admin: 12/11/19 13:01 Dose: 300 mg Documented by: Glimepiride (Amaryl) 4 mg PO DAILYCM [facility] Last Admin: 12/11/19 08:28 Dose: 4 mg Documented by: Guaifenesin (Mucinex) 1,200 mg PO BID [facility] Last Admin: 12/11/19 08:30 Dose: 1,200 mg Documented by: Piperacillin Sod/Tazobactam (Sod 4.5 gm/ Sodium Chloride) 100 mls @ 200 mls/hr IV X1 ONE Stop: 12/11/19 13:20 Vancomycin IV Pharmacy to Dose (1 ea/ Sodium Chloride) 500 mls @ 250 mls/hr IV X1 PRN; Protocol PRN Reason: Rx to Dose Insulin Glargine (Lantus (Bkc)) 12 units SC DAILY [facility] Last Admin: 12/11/19 08:29 Dose: 12 u Documented by: Levothyroxine Sodium (Synthroid) 75 mcg PO DAILY@0600 [facility] Last Admin: 12/11/19 04:44 Dose: 75 mcg Documented by: Lisinopril (Zestril) 2.5 mg PO DAILY [facility] Last Admin: 12/11/19 08:31 Dose: 2.5 mg Documented by: Magnesium Hydroxide (Milk Of Magnesia) 30 ml PO .PRN X 1 PRN PRN Reason: Constipation Last Admin: 12/11/19 06:39 Dose: 30 ml Documented by: Mirtazapine (Remeron) 15 mg PO QHS [facility] Last Admin: 12/10/19 20:36 Dose: 15 mg Documented by: Nitroglycerin (Nitrostat) 0.4 mg SUBLINGUAL Q5M PRN PRN Reason: Angina Pantoprazole Sodium (Protonix) 40 mg PO DAILY [facility] Last Admin: 12/11/19 08:30 Dose: 40 mg Documented by: Potassium Chloride (K-Dur) 20 meq PO DAILYCM [facility] Last Admin: 12/11/19 08:28 Dose: 20 meq Documented by: Senna/Docusate Sodium (Senokot-S, Sharron-Colace) 2 tablet PO BID [facility] Last Admin: 12/11/19 08:30 Dose: 2 tablet Documented by: Sodium Chloride () 10 - 40 ml IV UD PRN PRN Reason: SALINE FLUSH Last Admin: 12/08/19 06:32 Dose: 10 ml Documented by: Home Medications: Medications to take at Discharge Allopurinol [Zyloprim] 100 mg PO DAILYCM 11/27/19 Amiodarone HCl [Cordarone] 400 mg PO DAILY 11/27/19 Aspirin 81 mg PO DAILY 11/27/19 Calcium Citrate 950 mg PO DAILY 11/27/19 Cholecalciferol (VIT D3) [Vitamin D3] 1,000 unit PO DAILY 11/27/19 Clopidogrel Bisulfate [Clopidogrel] 75 mg PO DAILY 11/27/19 Colestipol Tablet [Colestid Tablet] 1 gm PO BID 11/27/19 Fenofibrate,Micronized [Fenofibrate] 200 mg PO DAILY 11/27/19 Folic Acid 2 mg PO DAILY 11/27/19 Glimepiride [Amaryl] 4 mg PO DAILY 11/27/19 Levothyroxine [Synthroid] 75 mcg PO DAILY 11/27/19 Lisinopril [Zestril] 2.5 mg PO DAILY 11/27/19 Nitroglycerin 0.4 mg SL Q5M MDD 3 11/27/19 Pantoprazole Sodium [Protonix] 40 mg PO DAILY 11/27/19 Rosuvastatin Calcium [Crestor] 20 mg PO DAILY 11/27/19 Acetaminophen [Tylenol Tablet] 650 mg PO Q6H PRN PRN tab 12/05/19 Amox/Clavulanate Tablet [Augmentin Tablet] 875 mg PO BIDCM 12/05/19 Carvedilol [Coreg (Beta Tiesha)] 3.125 mg PO BID 12/05/19 Furosemide [Lasix] 40 mg PO BID 12/05/19 Gabapentin [Neurontin] 300 mg PO TIDCM 12/05/19 Insulin Lispro [Humalog KwikPen] See Protocol SUBCUT ACHS 12/05/19 Potassium Chloride [K-Dur] 20 meq PO DAILYCM 12/05/19 Primary Care Physician: Angel Lang MD [Primary Care Provider] - Disposition: Acute care Hospital - [facility] Minutes spent on discharge:: 90 Medical Necessity - Tobacco Use Smoking Status: Never smoker Tobacco Use: Non-smoker Meaningful Use Info Meaningful Use Diagnoses (Choose all that apply): CHF - CHF NATA/ARB ordered at discharge?: Yes Documented LVEF (%): 35 Code Visit Inpatient E&M: 97795 Disch Hosp
--- NOTE | 2019-12-11 15:00 | NURSING ---
Report given to [facility] ER. Transported by [facility] on cart.
== END 2019-12-11 15:00 | disposition short-term general hospital (02) | DRG 949 ==
PROVIDERS: Admitting Provider Internal Medicine; PCP Family Medicine; Referring Provider Internal Medicine; Visit Provider Internal Medicine
DX: Z48.812 Encounter for surgical aftercare following surgery on the circulatory system (principal); I21.4 Non-ST elevation (NSTEMI) myocardial infarction; J96.01 Acute respiratory failure with hypoxia; J18.9 Pneumonia, unspecified organism; I13.0 Hypertensive heart and chronic kidney disease with heart failure and stage 1 through stage 4 chronic kidney disease, or unspecified chronic kidney disease; I50.42 Chronic combined systolic (congestive) and diastolic (congestive) heart failure; I48.20 Chronic atrial fibrillation, unspecified; I47.2 Ventricular tachycardia; N18.3 Chronic kidney disease, stage 3 (moderate); E11.22 Type 2 diabetes mellitus with diabetic chronic kidney disease; E78.5 Hyperlipidemia, unspecified; I25.10 Atherosclerotic heart disease of native coronary artery without angina pectoris; Z95.1 Presence of aortocoronary bypass graft; I25.5 Ischemic cardiomyopathy; Z95.810 Presence of automatic (implantable) cardiac defibrillator; I48.0 Paroxysmal atrial fibrillation; Z86.718 Personal history of other venous thrombosis and embolism; G47.33 Obstructive sleep apnea (adult) (pediatric); E11.42 Type 2 diabetes mellitus with diabetic polyneuropathy; R79.1 Abnormal coagulation profile; Z79.01 Long term (current) use of anticoagulants; D53.9 Nutritional anemia, unspecified
CPT/HCPCS: 36415; 71046; 71250; 80048; 82962; 83036; 83605; 83735; 85025; 85027; 85610; 87040; 94668; 97110; 97116; 97162; 97165; 97530; 97535; 97802; 97803; 99251; J7050; A4216; G0463

== ENCOUNTER 2019-12-24 17:28 | Inpatient (IN) | payer MEDICARE, BC, SELFPAY ==
[2019-12-05 11:43] VITALS: BMI 29.7
[2019-12-24 17:44] VITALS: BP 120/72; PULSE 69; RESP 18; TEMP 36.6; O2SAT 95; BMI 28.5
[2019-12-24 18:52] VITALS: BMI 28.5
[2019-12-24 19:31] VITALS: BP 120/72; PULSE 69; RESP 16; TEMP 36.6; O2SAT 95
[2019-12-24 21:11] LABS: Bedside Glucose 170 mg/dL (70-110)
[2019-12-24] MEDS: Cefepime HCl 2 GM in 0.9% NS 100 ML Minibag Q12 IV (22:19)
[2019-12-24] MEDS: metroNIDAZOLE 500 MG Tablet PO (22:32)
[2019-12-24] MEDS: Insulin Lispro 100 UNIT/ML INSULN.PEN SC (22:33)
[2019-12-24] MEDS: Senna/Docusate Sodium 1 Tablet 2 TABLET PO (22:34)
[2019-12-25] MEDS: Levothyroxine 75 MCG Tablet PO (05:32)
[2019-12-25 06:25] VITALS: O2SAT 95
[2019-12-25 06:50] LABS: Bedside Glucose 175 mg/dL (70-110)
[2019-12-25 07:19] LABS: Absolute Lymphocyte Count 0.85 X10^3/uL (0.83-4.51); Absolute Neutrophil Count 6.6 X10^3/uL (2.0-7.7); Basophil# 0.13 X10^3/uL; Basophil% 1.5 % (0-1); Eosinophil# 0.24 X10^3/uL; Eosinophils% 2.7 % (0-5); Hematocrit 36.1 % (40-54); Hemoglobin 11.6 g/dL (13.0-16.5); Lymphocyte # 0.85 X10^3/ul (4.0); Lymphocyte % 9.5 % (19-41); Mean Corp Hgb Conc 32.1 g/dL (32-36); Mean Corpuscular Hgb 30.2 pg (27.0-32.0); Mean Platelet Vol. 10.7 fl (6.2-12.0); Monocyte# 1.02 X10^3/uL; Monocyte% 11.4 % (0-10); NRBC Flagged by Analyzer 0 % (0-5); Neutrophil # 6.61 X10^3/uL (2.7-7.7); Platelet Count 328 K/mm3 (150-450); RBC Distribution Width CV 14.8 % (11.6-14.6); RBC Distribution Width SD 49.9 fl (35.1-43.9); Red Blood Count 3.84 M/mm3 (4.6-6.2); White Blood Count 8.9 K/mm3 (4.4-11.0)
[2019-12-25] MEDS: Insulin Lispro 100 UNIT/ML INSULN.PEN SC ×4 (07:36→21:34)
[2019-12-25 07:37] VITALS: PULSE 72
[2019-12-25] MEDS: Metoprolol(XL)Succ 50 MG Tablet PO (07:37)
[2019-12-25] MEDS: Folic Acid 1 MG Tablet 2 MG PO (07:37)
[2019-12-25] MEDS: Aspirin 81 MG TAB.CHEW PO (07:38)
[2019-12-25] MEDS: Calcium Carbonate 500 MG Tablet PO (07:38)
[2019-12-25] MEDS: Pantoprazole Sodium 40 MG Tablet PO (07:38)
[2019-12-25 07:39] LABS: International Normalized Ratio 2.7; Prothrombin Time (Protime)PT. 28.9 SECONDS (11.7-14.9)
[2019-12-25] MEDS: Allopurinol 100 MG Tablet PO (07:39)
[2019-12-25] MEDS: Gabapentin 100 MG Capsule PO ×3 (07:39→17:24)
[2019-12-25] MEDS: Gabapentin 300 MG Capsule PO ×3 (07:39→17:24)
[2019-12-25] MEDS: Spironolactone 25 MG Tablet 12.5 MG PO (07:40)
[2019-12-25] MEDS: Clopidogrel Bisulfate 75 MG Tablet PO (07:41)
[2019-12-25] MEDS: Amiodarone 200 MG Tablet 400 MG PO (07:42)
[2019-12-25] MEDS: metroNIDAZOLE 500 MG Tablet PO ×2 (07:42→21:34)
[2019-12-25 07:52] LABS: ALB/GLOB Ratio 0.5 RATIO (0.9-2.4); AST(SGOT) 18 U/L (15-37); Alanine Aminotransfer ALT/SGPT 18 U/L (16-61); Albumin, Serum 2.4 g/dL (3.2-5.0); Alkaline Phosphatase 64 U/L (45-117); Anion Gap 6 (5-15); BUN 13 mg/dL (7-18); BUN/Creat Ratio 13.5 RATIO (10-20); Calcium,Total 9.3 mg/dL (8.5-10.1); Chloride 108 mmol/L (98-107); Creatinine, Serum 0.97 mg/dL (0.70-1.30); EST Glomerular Filtration Rate 79 mL/min (>60); Est Glom Filt Rate - Afr Amer 96 mL/min (>60); Estimated Creatinine Clearance 55.84 ml/min; Globulin 4.9 g/dL (2.2-4.2); Glucose 172 mg/dL (74-106); Potassium 4.5 mmol/L (3.5-5.1); Protein, Total 7.3 g/dL (6.4-8.2); Sodium Level 136 mmol/L (136-145)
[2019-12-25 08:26] VITALS: BP 102/65; PULSE 70; RESP 20; TEMP 36.8; O2SAT 93
--- NOTE | 2019-12-25 09:51 | PCM.HP.STD ---
Problem List (1) Heart failure Status: Chronic Qualifiers: Heart failure type: systolic (2) Physical debility Status: Acute Comment: Due to deconditioning from recent admission for PNA, CHF and hypotension followed by Large loculated left effusion with collapse of the left lung with placement of L thoracostomy tube for 1 week. (3) Supratherapeutic INR Status: Acute (4) Macrocytic anemia Status: Acute (5) Chronic renal disease Status: Chronic Qualifiers: (6) Non-ST elevation (NSTEMI) myocardial infarction Status: Chronic Comment: elevated troponin to 0.192 on 11/27/19 - indeterminate, had just recently had a LIQUOR MERCHANT to the RCA at [facility] in early november (7) Presence of stent of bypass graft Status: Chronic Comment: PCI/FEDERICO to the SVG to RCA @[facility] 11/23/19 (8) 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 Status: Chronic Comment: March 2012 (9) Paroxysmal atrial fibrillation Status: Chronic (10) History of myocardial infarction Status: Chronic Comment: RI in 1981 and 1983 (11) Type 2 diabetes mellitus Status: Chronic Qualifiers: Diabetes mellitus complication status: with kidney complications Chronic kidney disease stage: stage 3 (moderate) (12) Atrioventricular block Status: Chronic Comment: has a PM/AICD (13) Paroxysmal ventricular tachycardia Status: Chronic Comment: monomorphic - has AICD and is now on Amiodarone (14) Premature ventricular contraction Status: Chronic (15) Aortocoronary bypass status Status: Chronic Comment: CABG x3 - KO to diag, SVG to RCA and SVG to RCA 06/18/1996 (16) Ischemic cardiomyopathy Status: Chronic Comment: 35% EF (17) Atherosclerotic heart disease of [place] coronary artery without angina pectoris Status: Chronic Qualifiers: [place] vs. transplanted heart: [place] heart Qualified Code(s): I25.10 - Atherosclerotic heart disease of [place] coronary artery without angina pectoris Comment: CABG x3 - KO to diag, SVG to RCA and SVG to RCA 06/18/1996 (18) snf (current) use of anticoagulants Status: Chronic Comment: Warfarin (19) CKD (chronic kidney disease), stage III Status: Chronic (20) HLD (hyperlipidemia) Status: Chronic Qualifiers: (21) Loculated pleural effusion Status: Chronic Comment: left side with collapse of the LLL...did not expand with thoracostomy tube, even with lytic agent. (22) Atrial flutter Status: Chronic (23) Cardiac defibrillator in place Status: Acute (24) Status post thoracostomy tube placement Status: Acute Comment: 12/14/19 - removed on 12/22/19 (25) History of PTCA Status: Acute Comment: 11/23/19 at [facility] for 90% stenosis of SVG to RCA with FEDERICO - Dr. Edwrad Oshea [facility] (26) Inanition Status: Acute (27) Severe malnutrition Status: Acute Comment: severe wt loss with moderate decrease on energy intake History of Present Illness Date of Admission: 12/24/19 Chief Complaint: Physical debility/deconditioning due to multiple recent hospital admissions for VT, PTCA with FEDERICO to RCA, HCAP, CHF, large loculated parapneumonic effusion on the left with thoracostomy tube. The patient is a 79 year old M with a past medical history of hypertension, hyperlipidemia, diabetes mellitus type 2, diabetic peripheral polyneuropathy in both lower extremities, coronary artery disease, CABG in 1995, PTCA with FEDERICO to the SVG to RCA at [facility] in November 2019, ischemic cardiomyopathy with a 35% ejection fraction, diastolic dysfunction, paroxysmal ventricular tachycardia on amiodarone and with PM/AICD, paroxysmal atrial fibrillation, gout, obstructive sleep apnea compliant with PAP therapy, remote hx of DVT UE, chronic anticoagulation with warfarin and recent large loculated left parapneumonic effusion requiring thoracostomy tube for 1 week along with IV antibiotics with persistent effusion and persistent collapse of the left LL due to fibrosis and scarring who is admitted to the IPRU at [facility] on 12/24/19 for > 3 hours of therapy daily to restore him at or near his prior level of independence prior to admission on 11/27/19 at [facility]. Marcial is well known to me from a prior admission to the IPRU for debility. He has a 35% EF. Left pleural effusion and collapse of the LLL and part of the WILLIAM persist despite thoracostomy tube at [facility] and lytic agent. He is not a candidate for surgery. The thoracic surgeon at [facility] did not feel he would survive the surgery. He is off oxygen now and is not complaining of SOB at rest. He fatigues easily and he is not eating again. Responded well to Marinol at his last admission to the rehab unit. Past Medical History Past Medical History (Chronic Problems): Chronic Problems (Last Reviewed 12/28/19 @ 14:[address] Alicja Ortega DO) Heart failure (Chronic) Chronic renal disease (Chronic) Loculated pleural effusion (Chronic) left side with collapse of the LLL...did not expand with thoracostomy tube, even with lytic agent. Atrial flutter (Chronic) Non-ST elevation (NSTEMI) myocardial infarction (Chronic) elevated troponin to 0.192 on 11/27/19 - indeterminate, had just recently had a LIQUOR MERCHANT to the RCA at [facility] in early november Presence of stent of bypass graft (Chronic ~11/23/19) PCI/FEDERICO to the SVG to RCA @[facility] 11/23/19 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 (Chronic ~04/20/02) March 2012 Paroxysmal atrial fibrillation (Chronic) History of myocardial infarction (Chronic) RI in 1981 and 1983 Type 2 diabetes mellitus (Chronic) Atrioventricular block (Chronic) has a PM/AICD Paroxysmal ventricular tachycardia (Chronic) monomorphic - has AICD and is now on Amiodarone Premature ventricular contraction (Chronic) Aortocoronary bypass status (Chronic ~06/18/96) CABG x3 - KO to diag, SVG to RCA and SVG to RCA 06/18/1996 Ischemic cardiomyopathy (Chronic) 35% EF Atherosclerotic heart disease of [place] coronary artery without angina pectoris (Chronic) CABG x3 - KO to diag, SVG to RCA and SVG to RCA 06/18/1996 snf (current) use of anticoagulants (Chronic) Warfarin CKD (chronic kidney disease), stage III (Chronic) HLD (hyperlipidemia) (Chronic) Medical History: Medical History (Last Reviewed 12/28/19 @ 14:[address] Alicja Otrega DO) Non-ST elevation (NSTEMI) myocardial infarction (Chronic) I21.4 elevated troponin to 0.192 on 11/27/19 - indeterminate, had just recently had a LIQUOR MERCHANT to the RCA at [facility] in early november Presence of stent of bypass graft (Chronic) Onset Date: ~11/23/19 Z95.828 PCI/FEDERICO to the SVG to RCA @[facility] 11/23/19 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 (Chronic) Onset Date: ~04/20/02 Z95.810 March 2012 Paroxysmal atrial fibrillation (Chronic) I48.0 History of myocardial infarction (Chronic) I25.2 RI in 1981 and 1983 Type 2 diabetes mellitus (Chronic) E11.9 Atrioventricular block (Chronic) I44.30 has a PM/AICD Paroxysmal ventricular tachycardia (Chronic) I47.2 monomorphic - has AICD and is now on Amiodarone Premature ventricular contraction (Chronic) I49.3 Ischemic cardiomyopathy (Chronic) I25.5 35% EF Atherosclerotic heart disease of [place] coronary artery without angina pectoris (Chronic) I25.10 CABG x3 - KO to diag, SVG to RCA and SVG to RCA 06/18/1996 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 (Chronic) Z79.01 Warfarin CKD (chronic kidney disease), stage III (Chronic) HLD (hyperlipidemia) (Chronic) E78.5 Hypothyroidism E03.9 YUSUF (obstructive sleep apnea) G47.33 Gout M10.9 Neuropathy G62.9 History of DVT (deep vein thrombosis) (Resolved) Z86.718 Upper Extremity History of cardiac pacemaker Onset Date: ~07/14/01 Z95.0 Allergies Iodine and Iodide Containing Produc Adverse Reaction (Severe, Verified 12/01/19 17:31) Diarrhea metformin Adverse Reaction (Verified 12/01/19 17:31) Upset Stomach niacin Adverse Reaction (Verified 12/01/19 17:31) Other Home Medications: Ambulatory Orders Medication Instructions Recorded Allopurinol [Zyloprim] 100 mg PO DAILY 11/27/19 Amiodarone HCl [Cordarone] 400 mg PO DAILY 11/27/19 Aspirin 81 mg PO DAILY 11/27/19 Calcium Citrate 950 mg PO DAILY 11/27/19 Cholecalciferol (VIT D3) [Vitamin 1,000 unit PO DAILY 11/27/19 D3] Clopidogrel Bisulfate [Clopidogrel] 75 mg PO DAILY 11/27/19 Fenofibrate,Micronized 200 mg PO DAILY 11/27/19 [Fenofibrate] Folic Acid 2 mg PO DAILY 11/27/19 Levothyroxine [Synthroid] 75 mcg PO DAILY 11/27/19 Lisinopril [Zestril] 2.5 mg PO DAILY 11/27/19 Nitroglycerin 0.4 mg SL Q5M MDD 3 11/27/19 Pantoprazole Sodium [Protonix] 40 mg PO DAILY 11/27/19 Rosuvastatin Calcium [Crestor] 20 mg PO DAILY 11/27/19 Acetaminophen [Tylenol Tablet] 650 mg PO Q6H PRN PRN tab 12/05/19 Furosemide [Lasix] 40 mg PO QODAY 12/05/19 Gabapentin [Neurontin] 300 mg PO TIDCM 12/05/19 Insulin Lispro [Humalog KwikPen] See Protocol SUBCUT ACHS 12/05/19 Cefepime HCl [Maxipime] 2 gm IV Q12 12/24/19 Gabapentin [Neurontin] 100 mg PO TID 12/24/19 Metoprolol Succinate [Toprol Xl] 50 mg PO DAILY 12/24/19 Metronidazole [Flagyl] 500 mg PO Q12H 12/24/19 Spironolactone [Aldactone] 0.5 tab PO DAILY 12/24/19 Warfarin [Coumadin] 2 mg PO DAILY 12/24/19 Surgical History: Surgical History (Last Reviewed 12/28/19 @ 14:[address] Alicja Ortega DO) Aortocoronary bypass status (Chronic) Onset Date: ~06/18/96 Z95.1 CABG x3 - KO to diag, SVG to RCA and SVG to RCA 06/18/1996 History of cardiac radiofrequency ablation Onset Date: ~06/12/07 Z98.890 for atrial flutter @ [facility] 06/12/07 History of implantable cardioverter-defibrillator (ICD) placement Onset Date: ~07/14/01 Z95.810 History of tonsillectomy Z90.89 Surgical History: coronary bypass surgery, - - Pacemaker/AICD, tonsillectomy, CABG x3, PCI at [facility] in nov 2019 with FEDERICO to the SVG to the RCA Psychiatric History: No pertinent psych hx Lives: Spouse/ Significant Other - Lizet Smoking Status: Never smoker Tobacco Use: Non-smoker Alcohol: None Drugs: None - *Family History Maternal Family History: Family History (Last Reviewed 12/28/19 @ 14:[address] Alicja Ortega DO) Father Myocardial infarction History Items: High Cholesterol, Heart Disease, Hypertension Paternal Family History: Family History (Last Reviewed 12/28/19 @ 14:[address] Alicja Ortega DO) Father Myocardial infarction History Items: High Cholesterol, Heart Disease, Hypertension Review of Systems Constitutional: Reports: Anorexia, Weakness, Fatigue. Denies: Chills, Fever, Weight Change Eyes: Denies: Blurred vision HEENT: Denies: Difficulty Swallowing, Head Aches, Sinus Congestion, Sinus Drainage, Sore Throat Cardiovascular: Denies: Chest Pain, Edema, Light Headedness, Palpitations Respiratory: Reports: Shortness of Breath. Denies: Cough, Shortness of breath at rest, Sputum production, Wheezing Gastrointestinal: Reports: - - decreased appetite. Denies: Abdominal Pain, Constipation, Diarrhea, Nausea, Vomiting Genitourinary: Denies: Dysuria Musculoskeletal: Denies: Joint Pain, Joint Tenderness Skin: Denies: Rash, Wounds Neurological: Denies: Slurred speech, Confusion, Focal weakness, Headaches, Numbness, Tingling, Tremor, Seizures Psychiatric: Denies: Anxiety, Depression, Homicidal Ideations, Suicidal Ideations Endocrine: Reports: Change in Body Habitus - he has lost about 25 lbs in the past 2 months Hematologic/ Lymphatic: Reports: Easy Bruising, Easy Bleeding, Hx of blood clot VTE Information - Inpt Only VTE Present on Admission: No VTE Mechan Device Prophylaxis: Knee High CASEY Hose VTE Pharm Prophylaxis ordered?: No Reason prophylaxis not ordered:: Treatment Not Indicated - he is on therapeutic warfarin Patient Problems: Active and Suspected Problems (Last Reviewed 12/28/19 @ 14:[address] Alicja Ortega DO) Cardiac defibrillator in place (Acute) Status post thoracostomy tube placement (Acute) 12/14/19 - removed on 12/22/19 History of PTCA (Acute) 11/23/19 at [facility] for 90% stenosis of SVG to RCA with FEDERICO - Dr. Edward Oshea [facility] Inanition (Acute) Severe malnutrition (Acute) severe wt loss with moderate decrease on energy intake - Physical Exam Vitals/I&O's: Vital Signs Temp Pulse Resp BP Pulse Ox 98.3 F 70 20 H 102/65 93 12/25/19 08:26 12/25/19 08:26 12/25/19 08:26 12/25/19 08:26 12/25/19 08:26 Oxygen Delivery Method Room Air Weight: 178 lb 2.136 oz Body Mass Index (BMI) 28.5 Finger Stick Blood Glucose 190 Intake and Output for Last 24 Hours 12/23/19 12/24/19 12/25/19 23:59 23:59 23:59 Intake Total 555 / 555 Output Total 300 / 600 1200 / 1200 Balance -300 / -415 -645 / -645 General: Alert, Oriented x3, Cooperative, No apparent distress, Well developed, - - he is sitting in the recliner at the bedside and his Lizet is in the room. They both say that his appetite and his intake are terrible. HEENT: Atraumatic, PERRLA, EOMI, Normocephalic Oral: Moist Mucosa, No Gingival or Mucosal Lesions/ Ulcerations Neck: Supple, No JVD, Negative Carotid Bruits, No Nodes, No Nuchal Rigidity, Trachea Midline Lungs: Normal air movement - throughout the right lung. There are some breath sounds in the WILLIAM posteriorly but the BS's in the mid lung and the LLL are very diminished., No wheeze, No rales, - - not tachypneic, no conversational dyspnea, no acessory muscle use and he is on RA Cardiovascular: Regular rate, Regular Rhythm, Normal S1, Normal S2, No murmurs, No Ectopic Activity, No rub noted, No Gallop Abdomen: Bowel Sounds Present, Soft, Non Tender, Non-Distended Extremities: No clubbing, No cyanosis, No edema, Capillary Refill Less than 3 Seconds, No Calf Tenderness Skin: No rashes, No breakdown Musculoskeletal: No Tenderness to Palpation of Joints or Extremities Neurological: Cranial nerves II-XII grossly intact, Neuro grossly intact Psych/Mental Status: Normal Affect, Appropriate Laboratory Results 12/24/19 21:02: POC Glucose 170 H 12/25/19 06:44: POC Glucose 175 H 12/25/19 07:06: WBC 8.9, RBC 3.84 L, Hgb 11.6 L, Hct 36.1 L, MCV 94.0, MCH 30.2, MCHC 32.1, RDW Std Deviation 49.9 H, RDW Coeff of Gavino 14.8 H, Plt Count 328, MPV 10.7, Immature Gran % (Auto) 0.900, Neut % (Auto) 74.0 H, Lymph % (Auto) 9.5 L, Taney % (Auto) 11.4 H, Eos % (Auto) 2.7, Baso % (Auto) 1.5 H, Absolute Neuts (auto) 6.6, Absolute Lymphs (auto) 0.85, Nucleated RBC % 0 12/25/19 07:06: PT 28.9 H, INR 2.7 12/25/19 07:06: Sodium 136, Potassium 4.5, Chloride 108 H, Carbon Dioxide 22.0, Anion Gap 6, BUN 13, Creatinine 0.97, Estim Creat Clear Calc 55.84, Est GFR (MDRD) Af Amer 96, Est GFR (MDRD) Non-Af 79, BUN/Creatinine Ratio 13.5, Glucose 172 H, Calcium 9.3, Magnesium 2.0, Total Bilirubin 0.70, AST 18, ALT 18, Alkaline Phosphatase 64, Total Protein 7.3, Albumin 2.4 L, Globulin 4.9 H, Albumin/Globulin Ratio 0.5 L Current Medications Acetaminophen (Tylenol) 650 mg PO Q6H PRN PRN PRN Reason: Pain Score 1-10/Temp > 100.7 F [facility]) [facility] Last Admin: 12/25/19 07:39 Dose: 100 mg Documented by: Amiodarone HCl (Cordarone) 400 mg PO DAILY [facility] Last Admin: 12/25/19 07:42 Dose: 400 mg Documented by: Aspirin (Aspirin, Baby) [facility] Last Admin: 12/25/19 07:38 Dose: 81 mg Documented by: Atorvastatin Calcium (Lipitor) 40 mg PO QHS [facility] Bisacodyl (Dulcolax) 10 mg RECTAL .PRN X 1 PRN PRN Reason: Constipation Calcium Carbonate (Tums) [facility] Last Admin: 12/25/19 07:38 Dose: 500 mg Documented by: Cholecalciferol (Vitamin D (25mcg)) 1,000 unit PO DAILY [facility] Clopidogrel Bisulfate (Plavix) 75 mg PO DAILY [facility] Last Admin: 12/25/19 07:41 Dose: 75 mg Documented by: Fenofibrate (Tricor) 145 mg PO DAILY [facility] Folic Acid (Folic Acid) [facility] Last Admin: 12/25/19 07:37 Dose: 2 mg Documented by: Furosemide (Lasix) 40 mg PO QODAY [facility] Gabapentin (Neurontin) 100 mg PO TIDCM [facility] Last Admin: 12/25/19 07:39 Dose: 100 mg Documented by: Gabapentin (Neurontin) 300 mg PO TIDCM [facility] Last Admin: 12/25/19 07:39 Dose: 300 mg Documented by: Cefepime HCl 2 gm/ Sodium (Chloride) 100 mls @ 200 mls/hr IV Q12 [facility] Stop: 01/01/20 22:01 Last Infusion: 12/25/19 00:50 Dose: Infused Documented by: Insulin Glargine (Lantus ([facility])) 8 units SC QHS [facility] Last Admin: 12/24/19 22:33 Dose: 8 u Documented by: Insulin Human Lispro (Humalog Kwikpen ([facility])) 0 unit SC ACHS [facility]; Protocol Last Admin: 12/25/19 07:36 Dose: 1 u Documented by: Levothyroxine Sodium (Synthroid) 75 mcg PO DAILY@0600 [facility] Last Admin: 12/25/19 05:32 Dose: 75 mcg Documented by: Lisinopril (Zestril) 2.5 mg PO DAILY [facility] Magnesium Hydroxide (Milk Of Magnesia) 30 ml PO .PRN X 1 PRN PRN Reason: Constipation Metoprolol Succinate (Toprol Xl (Beta Tiesha)) 50 mg PO DAILY [facility] Last Admin: 12/25/19 07:37 Dose: 50 mg Documented by: Metronidazole (Flagyl) 500 mg PO Q12 [facility] Last Admin: 12/25/19 07:42 Dose: 500 mg Documented by: Nitroglycerin (Nitrostat) 0.4 mg SUBLINGUAL Q5M PRN PRN Reason: CARDIAC/CHEST PAIN Pantoprazole Sodium (Protonix) 40 mg PO DAILY [facility] Last Admin: 12/25/19 07:38 Dose: 40 mg Documented by: Senna/Docusate Sodium (Senokot-S, Sharron-Colace) 2 tablet PO BID [facility] Last Admin: 12/24/19 22:34 Dose: 2 tablet Documented by: Sodium Chloride () 5 - 15 ml IV UD PRN PRN Reason: SALINE FLUSH Spironolactone (Aldactone) 12.5 mg PO DAILY [facility] Last Admin: 12/25/19 07:40 Dose: 12.5 mg Documented by: Warfarin Sodium (Coumadin (Pbkc)) 2 mg PO DAILY@1700 [facility] Assessment/Plan All Active Problems (Last Reviewed 12/28/19 @ 14:[address] Alicja Ortega, DO) Acute exacerbation of CHF (congestive heart failure) (Resolved) Lactic acidosis (Resolved) Physical debility (Acute) Supratherapeutic INR (Acute) Macrocytic anemia (Acute) Cardiac defibrillator in place (Acute) Status post thoracostomy tube placement (Acute) History of PTCA (Acute) Inanition (Acute) Severe malnutrition (Acute) FILIPE (acute kidney injury) (Resolved) Acute respiratory failure with hypoxia (Resolved) Hemoptysis (Resolved) History of DVT (deep vein thrombosis) (Resolved) Pneumonia (Resolved) Severe sepsis (Resolved) Impressions 1. physical debility/deconditioning due to multiple hospital admissions starting 12/07/19. Most recent admission [facility] I[facility] for loculated left parapneumonic effusion with respiratory insufficiency and collapse of the WILLIAM and the LLL. 2. loculated left parapneumonic effusion with collapse of the WILLIAM and the LLL - persistent despite chest tube and lytic agents. Not a surgical candidate because the thoracic surgeon though he would likely not survive the surgery. He is hemodynamically stable and on RA. Will be on antibiotics until 12/31 and then the antibiotics and the PICC can be discontinued. Cefepime and Flagyl. 3. Chronic anticoagulation with Warfarin. INR is 2.7 today. 4. inanition with moderate to severe malnutrition with severe weight loss recently. 5. mild anemia - new likely due to BM suppression due to inflammation and infection with frequent blood draws and recent procedures. HGB is stable since last admission to IPRU 6. DM II - BS's are increased but, will monitor AC and HS over the next few days and adjust insulin as necessary. Keep the fasting under 150 and the PP BS's under 200 7. Chronic medical conditions: ischemic CM with a 35% EF/CAD/diastolic dysfunction/CRF stage III/PM/AICD/VT/PAF/HLD - complicate care, management, recovery and prognosis PLAN PT for gait stability OT for ADL's Analgesics as needed Bowel protocol Fall precautions Assess for Anxiety/Depression GI prophylaxis with pantoprazole DVT prophylaxis-no need patient is therapeutic on warfarin Follow up with Dr. Lang and pulmonology following DC from Rehab
[2019-12-25] MEDS: Cefepime HCl 2 GM in 0.9% NS 100 ML Minibag Q12 IV ×2 (10:07→21:34)
[2019-12-25] MEDS: Fenofibrate 145 MG Tablet PO (10:09)
[2019-12-25] MEDS: Furosemide 40 MG Tablet PO (10:10)
[2019-12-25] MEDS: Lisinopril 2.5 MG Tablet PO (10:10)
[2019-12-25] MEDS: Senna/Docusate Sodium 1 Tablet 2 TABLET PO ×2 (10:11→21:34)
[2019-12-25] MEDS: 0.9% NaCl Peripheral Flush Adult/Peds IV ×2 (10:14→21:36)
[2019-12-25 11:56] LABS: Bedside Glucose 214 mg/dL (70-110)
[2019-12-25] MEDS: Ondansetron ODT 4 MG Tablet PO (12:21)
[2019-12-25 17:40] LABS: Bedside Glucose 244 mg/dL (70-110)
[2019-12-25 20:13] VITALS: BP 96/54; PULSE 70; RESP 16; TEMP 36.6; O2SAT 94
[2019-12-25 21:05] LABS: Bedside Glucose 271 mg/dL (70-110)
[2019-12-25] MEDS: Atorvastatin Calcium 40 MG Tablet PO (21:34)
[2019-12-26] MEDS: Levothyroxine 75 MCG Tablet PO (04:49)
[2019-12-26 06:25] LABS: Bedside Glucose 151 mg/dL (70-110)
[2019-12-26 07:00] VITALS: BP 115/56; PULSE 70; RESP 16; TEMP 36.4; O2SAT 94
[2019-12-26 07:02] VITALS: O2SAT 96
[2019-12-26] MEDS: Insulin Lispro 100 UNIT/ML INSULN.PEN SC ×4 (07:43→20:14)
[2019-12-26 07:44] VITALS: PULSE 78
[2019-12-26] MEDS: Gabapentin 300 MG Capsule PO ×3 (07:44→16:43)
[2019-12-26] MEDS: Calcium Carbonate 500 MG Tablet PO (07:44)
[2019-12-26] MEDS: Ondansetron ODT 4 MG Tablet PO (07:44)
[2019-12-26] MEDS: Metoprolol(XL)Succ 50 MG Tablet PO (07:44)
[2019-12-26] MEDS: Aspirin 81 MG TAB.CHEW PO (07:44)
[2019-12-26] MEDS: Clopidogrel Bisulfate 75 MG Tablet PO (07:45)
[2019-12-26] MEDS: Allopurinol 100 MG Tablet PO (07:45)
[2019-12-26] MEDS: Lisinopril 2.5 MG Tablet PO (07:45)
[2019-12-26] MEDS: Pantoprazole Sodium 40 MG Tablet PO (07:45)
[2019-12-26] MEDS: Folic Acid 1 MG Tablet 2 MG PO (07:46)
[2019-12-26] MEDS: Gabapentin 100 MG Capsule PO ×3 (07:51→16:43)
[2019-12-26] MEDS: Amiodarone 200 MG Tablet 400 MG PO (07:53)
[2019-12-26] MEDS: metroNIDAZOLE 500 MG Tablet PO ×2 (07:53→20:11)
[2019-12-26] MEDS: Fenofibrate 145 MG Tablet PO (07:53)
[2019-12-26] MEDS: Spironolactone 25 MG Tablet 12.5 MG PO (08:01)
[2019-12-26] MEDS: Cefepime HCl 2 GM in 0.9% NS 100 ML Minibag Q12 IV ×2 (09:52→21:52)
[2019-12-26] MEDS: 0.9% NaCl Peripheral Flush Adult/Peds IV ×3 (09:52→23:32)
[2019-12-26 11:41] LABS: Bedside Glucose 287 mg/dL (70-110)
--- NOTE | 2019-12-26 12:20 | PCM.RU.PYE ---
Admission Information Primary Diagnosis:: debility due to multiple hospital admissions in the past 3 months. The most recent admission was to [facility] for a loculatesd pleural effusion and he required a chest tube. Status Changes from Prescreening?: No changes Identified Actual Problem List:: Infection, Skin Intergrity, Alteration in Nutrition, Mobility Impaired, Fluid Overload r/t CHF, Alteration-Leisure Activ. Potential Problem List:: DVT, Bleeding, Infection, UTI, Aspiration, Falls, Skin Integrity, Depression Risk of Complications DVT: CASEY Li, - - on Warfarin Bleeding: Monitor Lab Values, Nursing to Teach Precautions for anti-coagulation therapy., Wound, if applicable, to be assessed every shift., Stroke patients assessed for lethargy or change in status. Infection: Clinical Staff to Monitor for S/S of infection:, S/S of infection include fever, redness, warmth, etc. Urinary Tract Infection: Monitor for frequency, burning, discomfort, or incontinence., Nursing will obtain urine sample for urinalysis and C&S when ordered. Aspiration: Clinical staff will monitor for coughing, drooling, congestion., Speech will evaluate swallowing and dsyphasia., Nursing will monitor patient swallowing during meals. Falls: Patient will be evaluated for Fall Precautions, Patient will be placed on Fall Precautions as indicated per protocol. Skin Breakdown: Nursing will assess skin daily using assessment tool., Nursing will place on Skin Breakdown Precautions as indicated. Pain: Clinical staff will assess patient's pain level per protocol., Medications will be given, if needed, and the pain level reassessed., Other methods: Massage, distraction, decrease stimulus, etc. used PRN. Plan of Care Patient requires physician specializing in physical medicine and rehab oversight to provide close medical supervision of rehab issues including: Pain Management, Sleep Problems, Bowel and Bladder, Medical and co-morbidity Management, DVT prophylaxis, Rehabilitation Leadership, Coordination of treatment team Patient needs Physical Therapy: For a minimum of 1 hour, At least 5 out of 7 days Patient needs Physical Therapy to improve:: Mobility, Mobility, Mobility, Strengthening, Transfers, Stretching, ROM, Endurance, Stairs, Gait, Balance Patient needs Occupational Therapy: For a minimum of 1 hour, At least 5 out of 7 days Patient needs Occupational Therapy to improve ADL's incl.: Eating, Grooming, Bathing, Dressing, Toileting, Toilet transfers, Community Reintegration, Higher functioning activities, Household tasks, Adaptive Equipment, Splinting, Other activities as determined Patient requires 24/7 Rehabilitation Nursing for: Pain Issues, Identifying and preventing risk factors, Monitoring and reporting current medical conditions, Assisting with ambulation, transfer, and all ADL's, Teaching patients about disease process and medications, Family teaching, Providing safe environment, Bowel and Bladder Issues, Skin integrity, Medication Management Patient needs Geology Scientist/ Case Management for: Discharge Planning, Arranging Home Equipment or Services, Family Interventions Patient needs Dietary and Nutrition Services for: Adequate Nutrition, Nutritional Supplements, Nutritional Education Goals Patient will remain: free from falls, or injury at time of discharge. Patient will perform bed mobility at: MOD I level of assist. Patient will complete transfers from bed to chair at: MOD I level of assist. Patient will ambulate: 100 feet, with MOD I assist, with LRD Patient will complete upper body dressing at: MOD I level of assist. Patient will complete lower body dressing at: MOD I level of assist. Patient will complete toileting at: MOD I level of assist. Patient will perform bathing at: MOD I level of assist. Patient will complete grooming at: MOD I level of assist. Patient will complete home management skills at: MOD I level of assist. Patient will achieve: 12 stairs, at MOD I assist Patient will have pain level of: of 3 or less Patient's skin will: remain intact, free from infection. Patient will receive: adequate nutrition. Discharge Planning Pt Prognosis for Sig. Practical Improv. w/in Reasonable Time: Good Estimated Length of stay (days): 14 Anticipated D/C Destination: Home with Outpt Therapy
--- NOTE | 2019-12-26 14:31 | RAD_ITS ---
STUDY: X-RAY CHEST REASON FOR EXAM: Male, 79 years old. F/U LEFT PLEURAL EFFUSION. TECHNIQUE: PA and lateral views of the chest. COMPARISON: 12/11/2019 FINDINGS: Interval placement right upper extremity PICC with tip of the catheter overlying the junction of the right atrium and superior vena cava. Left subclavian triple lead AICD which is unchanged. Status post median sternotomy. The lungs are clear and expanded. No change in the large left-sided pleural effusion with left lower lobe atelectasis. There is moderate cardiac enlargement. Normal mediastinum and dorene. Normal visualized pulmonary arteries. Normal visualized aortic arch and descending thoracic aorta. Normal visualized thoracic spine. Normal visualized ribs, clavicles, and shoulders. There is no demonstrated abnormality of the visualized soft tissue structures of the upper abdomen. RAD/Chest PA and Lateral IMPRESSION: No change in large left-sided pleural effusion with left lower lobe atelectasis Electronically Signed: Gagan Lam MD at 16:38 EDT Tel , Service support ,
[2019-12-26 17:11] LABS: Bedside Glucose 220 mg/dL (70-110)
[2019-12-26 20:01] VITALS: BP 94/55; PULSE 70; RESP 18; TEMP 36.6; O2SAT 94
[2019-12-26] MEDS: Senna/Docusate Sodium 1 Tablet 2 TABLET PO (20:11)
[2019-12-26] MEDS: Atorvastatin Calcium 40 MG Tablet PO (20:11)
[2019-12-26 20:21] LABS: Bedside Glucose 260 mg/dL (70-110)
[2019-12-27] MEDS: Levothyroxine 75 MCG Tablet PO (06:06)
[2019-12-27 06:16] LABS: Bedside Glucose 141 mg/dL (70-110)
[2019-12-27 07:00] VITALS: BP 112/71; PULSE 71; RESP 18; TEMP 36.4; O2SAT 93
[2019-12-27] MEDS: Allopurinol 100 MG Tablet PO (07:55)
[2019-12-27] MEDS: Amiodarone 200 MG Tablet 400 MG PO (07:55)
[2019-12-27] MEDS: Calcium Carbonate 500 MG Tablet PO (07:55)
[2019-12-27] MEDS: Folic Acid 1 MG Tablet 2 MG PO (07:55)
[2019-12-27] MEDS: Aspirin 81 MG TAB.CHEW PO (07:55)
[2019-12-27] MEDS: Gabapentin 300 MG Capsule PO ×3 (07:55→16:44)
[2019-12-27] MEDS: Gabapentin 100 MG Capsule PO ×3 (07:55→16:44)
[2019-12-27] MEDS: Pantoprazole Sodium 40 MG Tablet PO (07:56)
[2019-12-27] MEDS: Spironolactone 25 MG Tablet 12.5 MG PO (07:56)
[2019-12-27 09:13] VITALS: PULSE 77
[2019-12-27] MEDS: Metoprolol(XL)Succ 50 MG Tablet PO (09:13)
[2019-12-27] MEDS: metroNIDAZOLE 500 MG Tablet PO ×2 (09:13→22:32)
[2019-12-27] MEDS: Fenofibrate 145 MG Tablet PO (09:13)
[2019-12-27] MEDS: Cefepime HCl 2 GM in 0.9% NS 100 ML Minibag Q12 IV ×2 (09:28→22:42)
[2019-12-27] MEDS: 0.9% NaCl Peripheral Flush Adult/Peds IV ×2 (09:33→22:28)
[2019-12-27] MEDS: Clopidogrel Bisulfate 75 MG Tablet PO (09:41)
[2019-12-27] MEDS: Lisinopril 2.5 MG Tablet PO (09:41)
[2019-12-27] MEDS: Senna/Docusate Sodium 1 Tablet 2 TABLET PO ×2 (09:41→22:28)
[2019-12-27] MEDS: Furosemide 40 MG Tablet PO (09:41)
[2019-12-27 11:50] LABS: Bedside Glucose 228 mg/dL (70-110)
[2019-12-27] MEDS: Insulin Lispro 100 UNIT/ML INSULN.PEN SC ×3 (12:05→22:31)
[2019-12-27 17:01] LABS: Bedside Glucose 187 mg/dL (70-110)
[2019-12-27 19:36] VITALS: BP 102/65; PULSE 70; RESP 16; TEMP 36.6; O2SAT 96
--- NOTE | 2019-12-27 20:13 | PN_ITS ---
Progress Note Afebile VSS Maintaining appropriate oxygen saturation on RA Oral intake is poor per his Discussed with nursing - no problems that need addressed Reviewed the PT/OT notes Medication list reviewed. Rare cough now. Denies shortness of breath at rest. Denies nausea/vomiting/abdominal pain. He just does not have an appetite. Alert and oriented x3, no apparent distress, sitting at the bedside in the recliner. Not tachypneic, no conversational dyspnea, no accessory muscle use. Lungs-very diminished on the left side posteriorly except for the lung apex which has air exchange. The right lung is clear to auscultation after a few deep breaths. Heart-no gallop, heart rate is controlled No peripheral edema No calf pain Impressions 1. physical debility/deconditioning due to multiple hospital admissions starting 12/07/19. Most recent admission [facility] for loculated left parapneumonic effusion with respiratory insufficiency and collapse of the WILLIAM and the LLL. 2. loculated left parapneumonic effusion with collapse of the WILLIAM and the LLL - persistent despite chest tube and lytic agents. Not a surgical candidate because the thoracic surgeon though he would likely not survive the surgery. He is hemodynamically stable and on RA. Will be on antibiotics until 12/31 and then the antibiotics and the PICC can be discontinued. Cefepime and Flagyl. 3. Chronic anticoagulation with Warfarin. INR 2.7 yesterday......recheck in the AM 4. inanition with moderate to severe malnutrition with severe weight loss recently. Pt and his are agreeable to restarting Marinol because it increased appetite significantly at the last admission and he had no adverse effects. STROKE Vital Signs/Narrative: Vital Signs Temp Pulse Resp BP Pulse Ox 12/27/19 19:36 98 F 70 16 102/65 96 Inpatient E&M: 16383 Subs Hosp L2
[2019-12-27] MEDS: Atorvastatin Calcium 40 MG Tablet PO (22:30)
[2019-12-27 23:06] LABS: Bedside Glucose 193 mg/dL (70-110)
[2019-12-28 05:57] LABS: International Normalized Ratio 4.6
--- NOTE | 2019-12-28 05:58 | NURSING ---
AUTUMN FROM LAB REPORTS CRITICAL LAB VALUE INR OF 4.6 ON PT TODAY. PAGE PLACED TO HOSPITALIST DR CLOUD VIA [facility] WAREHOUSE DIRECTOR.
--- NOTE | 2019-12-28 06:01 | NURSING ---
DR CLOUD INFORMED OF PT'S INR TODAY AND WILL PLACE ORDERS.
[2019-12-28 06:31] LABS: Bedside Glucose 140 mg/dL (70-110)
[2019-12-28] MEDS: Levothyroxine 75 MCG Tablet PO (06:34)
[2019-12-28] MEDS: Dronabinol 2.5 MG Capsule PO ×2 (07:50→16:45)
[2019-12-28] MEDS: Ondansetron ODT 4 MG Tablet PO (07:50)
[2019-12-28] MEDS: Gabapentin 100 MG Capsule PO ×3 (07:51→16:45)
[2019-12-28] MEDS: Folic Acid 1 MG Tablet 2 MG PO (07:51)
[2019-12-28] MEDS: Aspirin 81 MG TAB.CHEW PO (07:51)
[2019-12-28] MEDS: Spironolactone 25 MG Tablet 12.5 MG PO (07:52)
[2019-12-28] MEDS: Gabapentin 300 MG Capsule PO ×3 (07:52→16:45)
[2019-12-28] MEDS: Calcium Carbonate 500 MG Tablet PO (07:52)
[2019-12-28] MEDS: Allopurinol 100 MG Tablet PO (07:52)
[2019-12-28] MEDS: Amiodarone 200 MG Tablet 400 MG PO (07:53)
[2019-12-28] MEDS: Senna/Docusate Sodium 1 Tablet 2 TABLET PO ×2 (07:54→21:58)
[2019-12-28] MEDS: Clopidogrel Bisulfate 75 MG Tablet PO (07:54)
[2019-12-28] MEDS: Pantoprazole Sodium 40 MG Tablet PO (07:54)
[2019-12-28 07:55] VITALS: PULSE 70
[2019-12-28] MEDS: Metoprolol(XL)Succ 50 MG Tablet PO (07:55)
[2019-12-28] MEDS: Lisinopril 2.5 MG Tablet PO (07:55)
[2019-12-28] MEDS: Fenofibrate 145 MG Tablet PO (07:55)
[2019-12-28 08:04] VITALS: BP 119/72; PULSE 70; RESP 12; TEMP 36.6; O2SAT 94
[2019-12-28] MEDS: metroNIDAZOLE 500 MG Tablet PO ×2 (09:49→21:58)
[2019-12-28] MEDS: Cefepime HCl 2 GM in 0.9% NS 100 ML Minibag Q12 IV ×2 (09:49→21:51)
--- NOTE | 2019-12-28 09:51 | CASEMGMT ---
Social Work IDT met with patient for Team Meeting. Discussed patient's progress in therapy. Pt is walking up to 165b ft with FWW CGA, completed 2 steps CGA, CGA or transfers, min assist for all ADLs. Pt is still struggling with a poor appetite - significant weight loss. Ordered medication and ensure to assist. Lungs are diminished and pt fatigues. Explained Medicare approved pt for 12 days with DC date 01/04. Will ReTeam next week and continue to follow for DC planning. Erika Abad, STOCK DRIER TENDER HOME PARAPROFESSIONAL
[2019-12-28 11:51] LABS: Bedside Glucose 271 mg/dL (70-110)
[2019-12-28] MEDS: Insulin Lispro 100 UNIT/ML INSULN.PEN SC ×2 (12:00→16:45)
[2019-12-28] MEDS: Glucerna Shake 120 ML LIQUID PO ×2 (13:38→21:59)
[2019-12-28 14:10] VITALS: O2SAT 94
--- NOTE | 2019-12-28 15:01 | PCM.PROGNOTE ---
Patient Problems: Active and Suspected Problems (Last Reviewed 12/28/19 @ 14:[address] Alicja Ortega, DO) Cardiac defibrillator in place (Acute) Status post thoracostomy tube placement (Acute) 12/14/19 - removed on 12/22/19 History of PTCA (Acute) 11/23/19 at [facility] for 90% stenosis of SVG to RCA with FEDERICO - Dr. Edward Oshea [facility] Inanition (Acute) Severe malnutrition (Acute) severe wt loss with moderate decrease on energy intake Subjective: Patient was seen today on team rounds. His Lizet was not present. Afebile VSS Maintaining appropriate oxygen saturation on RA Oral intake is still not adequate but he did eat approximately 50% of his breakfast today. Discussed with nursing - no problems that need addressed Reviewed the PT/OT notes Medication list reviewed. All lab was personally reviewed. The INR is supratherapeutic at 4.6 today and warfarin has been placed on hold. Blood sugar record was reviewed. No complaints today other than fatiguing easily. - Physical Exam Vitals/I&O's: Vital Signs Temp Pulse Resp BP Pulse Ox 97.9 F 70 12 119/72 94 12/28/19 08:04 12/28/19 08:04 12/28/19 08:04 12/28/19 08:04 12/28/19 14:10 Oxygen Delivery Method Room Air Weight: 180 lb 12.465 oz Body Mass Index (BMI) 28.5 Finger Stick Blood Glucose 190 Intake and Output for Last 24 Hours 12/26/19 12/27/19 12/28/19 23:59 23:59 23:59 Intake Total 1996.5 / 2262.5 1942.25 / 1942.25 1170 / 1170 Output Total 1650 / 1650 1450 / 1700 600 / 600 Balance 347.5 / 612.5 492.25 / 242.25 570 / 570 General: Alert, Oriented x3, Cooperative HEENT: PERRLA, EOMI Oral: Dry Mucosa Neck: Supple, No JVD Lungs: - - Clear to auscultation on the right. Minimal air exchange in the left mid lung and base. There are breath sounds in the left upper lobe posteriorly. No wheezes, no crackles, no rhonchi. Not tachypneic at rest and no conversational dyspnea. Cardiovascular: Regular rate, Regular Rhythm, Normal S1, Normal S2, No rub noted, No Gallop Abdomen: Bowel Sounds Present, Soft, Non Tender, Non-Distended Extremities: No clubbing, No cyanosis, No edema Skin: No rashes, No breakdown Neurological: Cranial nerves II-XII grossly intact, Neuro grossly intact Psych/Mental Status: Normal Affect, Appropriate Laboratory Results 12/27/19 16:45: POC Glucose 187 H 12/27/19 22:27: POC Glucose 193 H 12/28/19 05:30: PT 44.0 H, INR 4.6 H* 12/28/19 06:12: POC Glucose 140 H 12/28/19 11:12: POC Glucose 271 H Current Medications Acetaminophen (Tylenol) 650 mg PO Q6H PRN PRN PRN Reason: Pain Score 1-10/Temp > 100.7 F Allopurinol (Zyloprim) 100 mg PO DAILYCOX MONETT Last Admin: 12/28/19 07:52 Dose: 100 mg Documented by: Amiodarone HCl (Cordarone) 400 mg PO DAILY [facility] Last Admin: 12/28/19 07:53 Dose: 400 mg Documented by: Aspirin (Aspirin, Baby) 81 mg PO DAILYCOX MONETT Last Admin: 12/28/19 07:51 Dose: 81 mg Documented by: Atorvastatin Calcium (Lipitor) 40 mg PO QHS [facility] Last Admin: 12/27/19 22:30 Dose: 40 mg Documented by: Bisacodyl (Dulcolax) 10 mg RECTAL .PRN X 1 PRN PRN Reason: Constipation Calcium Carbonate (Tums) 500 mg PO DAILYCOX MONETT Last Admin: 12/28/19 07:52 Dose: 500 mg Documented by: Cholecalciferol (Vitamin D (25mcg)) 1,000 unit PO DAILY [facility] Last Admin: 12/28/19 07:55 Dose: 1,000 unit Documented by: Clopidogrel Bisulfate (Plavix) 75 mg PO DAILY [facility] Last Admin: 12/28/19 07:54 Dose: 75 mg Documented by: Dronabinol (Marinol) 2.5 mg PO BIDAC [facility] Last Admin: 12/28/19 07:50 Dose: 2.5 mg Documented by: Fenofibrate (Tricor) 145 mg PO DAILY [facility] Last Admin: 12/28/19 07:55 Dose: 145 mg Documented by: Folic Acid (Folic Acid) 2 mg PO DAILYCM [facility] Last Admin: 12/28/19 07:51 Dose: 2 mg Documented by: Furosemide (Lasix) 40 mg PO QODAY [facility] Last Admin: 12/27/19 09:41 Dose: 40 mg Documented by: Gabapentin (Neurontin) 100 mg PO TIDCM [facility] Last Admin: 12/28/19 12:01 Dose: 100 mg Documented by: Gabapentin (Neurontin) 300 mg PO TIDCM [facility] Last Admin: 12/28/19 12:01 Dose: 300 mg Documented by: Cefepime HCl 2 gm/ Sodium (Chloride) 100 mls @ 200 mls/hr IV Q12 [facility] Stop: 01/01/20 22:01 Last Infusion: 12/28/19 10:53 Dose: Infused Documented by: Insulin Glargine (Lantus ([facility])) 8 units SC QHS [facility] Last Admin: 12/27/19 22:30 Dose: 8 u Documented by: Insulin Human Lispro (Humalog Kwikpen ([facility])) 0 unit SC ACHS [facility]; Protocol Last Admin: 12/28/19 12:00 Dose: 4 u Documented by: Levothyroxine Sodium (Synthroid) 75 mcg PO DAILY@0600 [facility] Last Admin: 12/28/19 06:34 Dose: 75 mcg Documented by: Lisinopril (Zestril) 2.5 mg PO DAILY [facility] Last Admin: 12/28/19 07:55 Dose: 2.5 mg Documented by: Magnesium Hydroxide (Milk Of Magnesia) 30 ml PO .PRN X 1 PRN PRN Reason: Constipation Metoprolol Succinate (Toprol Xl (Beta Tiesha)) 50 mg PO DAILY [facility] Last Admin: 12/28/19 07:55 Dose: 50 mg Documented by: Metronidazole (Flagyl) 500 mg PO Q12 [facility] Last Admin: 12/28/19 09:49 Dose: 500 mg Documented by: Nitroglycerin (Nitrostat) 0.4 mg SUBLINGUAL Q5M PRN PRN Reason: CARDIAC/CHEST PAIN Nutritional Formula (Lactose Free) (Glucerna Shake) 120 ml PO 4X/DAY [facility] Last Admin: 12/28/19 13:38 Dose: 120 ml Documented by: Ondansetron HCl (Zofran Odt) 4 mg PO Q8H PRN PRN PRN Reason: NAUSEA Last Admin: 12/28/19 07:50 Dose: 4 mg Documented by: Pantoprazole Sodium (Protonix) 40 mg PO DAILY [facility] Last Admin: 12/28/19 07:54 Dose: 40 mg Documented by: Senna/Docusate Sodium (Senokot-S, Sharron-Colace) 2 tablet PO BID [facility] Last Admin: 12/28/19 07:54 Dose: 2 tablet Documented by: Sodium Chloride () 5 - 15 ml IV UD PRN PRN Reason: SALINE FLUSH Last Admin: 12/27/19 22:28 Dose: 10 ml Documented by: Spironolactone (Aldactone) 12.5 mg PO DAILY [facility] Last Admin: 12/28/19 07:52 Dose: 12.5 mg Documented by: Warfarin Sodium (Coumadin (Pbkc)) 2 mg PO DAILY@1700 [facility] Last Admin: 12/27/19 16:44 Dose: 2 mg Documented by: Medical Necessity - Tobacco Use Smoking Status: Never smoker Tobacco Use: Non-smoker Assessment/Plan All Active Problems (Last Reviewed 12/28/19 @ 14:[address] Alicja Ortega, DO) Acute exacerbation of CHF (congestive heart failure) (Resolved) Lactic acidosis (Resolved) Physical debility (Acute) Supratherapeutic INR (Acute) Macrocytic anemia (Acute) Cardiac defibrillator in place (Acute) Status post thoracostomy tube placement (Acute) History of PTCA (Acute) Inanition (Acute) Severe malnutrition (Acute) FILIPE (acute kidney injury) (Resolved) Acute respiratory failure with hypoxia (Resolved) Hemoptysis (Resolved) History of DVT (deep vein thrombosis) (Resolved) Pneumonia (Resolved) Severe sepsis (Resolved) Impressions 1. physical debility/deconditioning due to multiple hospital admissions starting 12/07/19. Most recent [facility] for loculated left parapneumonic effusion with respiratory insufficiency and collapse of the WILLIAM and the LLL. 2. loculated left parapneumonic effusion with collapse of the WILLIAM and the LLL - persistent despite chest tube and lytic agents. Not a surgical candidate because the thoracic surgeon though he would likely not survive the surgery. He is hemodynamically stable and on RA. Will be on antibiotics until 12/31 and then the antibiotics and the PICC can be discontinued. Cefepime and Flagyl. 3. Chronic anticoagulation with Warfarin. INR is 2.7 today. 4. inanition with moderate to severe malnutrition with severe weight loss recently. 5. mild anemia - new likely due to BM suppression due to inflammation and infection with frequent blood draws and recent procedures. HGB is stable since last admission to [facility] 6. DM II - BS's are increased but, will monitor AC and HS over the next few days and adjust insulin as necessary. Keep the fasting under 150 and the PP BS's under 200. Will restart Amaryl 4 mg daily and continue the SSI TID AC 7. Chronic medical conditions: ischemic CM with a 35% EF/CAD/diastolic dysfunction/CRF stage III/PM/AICD/VT/PAF/HLD - complicate care, management, recovery and prognosis Inpatient E&M: 77488 Subs Hosp L2
--- NOTE | 2019-12-28 16:11 | CHAPLAIN ---
Type of Pastoral Visit _x__ Initial Visit ___ Follow-up Visit ___ On-call Visit ___ General Patient Visit ___ Spiritual Assessment ___ Family Conference ___ Bereavement ___ Rapid Response ___ Code Blue ___ Other (describe below) Pastoral Care Referral From _x__ Patient _x__ Family ___ Nurse ___ Physician ___ Guest Room Attendant ___ Asp Net Developer ___ Other (describe below) Sacrament/Intervention _x__ Active listening ___ Anointing ___ Christian ___ Bereavement ___ Communion ___ Karin exploration ___ _x__ Life review _x__ Prayer ___ Reconciliation ___ Sacrament of Sick _x__ Supportive presence ___ Wedding ___ Other (describe below) Pastoral Comments
[2019-12-28 17:55] LABS: Bedside Glucose 173 mg/dL (70-110)
[2019-12-28 19:21] VITALS: BP 96/60; PULSE 70; RESP 16; TEMP 36.6; O2SAT 95
[2019-12-28 21:41] LABS: Bedside Glucose 205 mg/dL (70-110)
[2019-12-28] MEDS: Atorvastatin Calcium 40 MG Tablet PO (21:58)
[2019-12-28] MEDS: Acetaminophen 325 MG Tablet 650 MG PO (22:01)
[2019-12-28 22:15] VITALS: BP 96/60; PULSE 70; RESP 16; TEMP 36.6; O2SAT 95
--- NOTE | 2019-12-29 04:28 | NURSING ---
Reviewed and agree with COMMERCIAL HVAC SERVICE TECHNICIAN documentation and charting.
[2019-12-29] MEDS: Levothyroxine 75 MCG Tablet PO (06:27)
[2019-12-29] MEDS: Dronabinol 2.5 MG Capsule PO ×2 (06:33→16:59)
[2019-12-29 07:11] LABS: Bedside Glucose 150 mg/dL (70-110)
[2019-12-29] MEDS: Insulin Lispro 100 UNIT/ML INSULN.PEN SC ×2 (07:34→11:34)
[2019-12-29] MEDS: Aspirin 81 MG TAB.CHEW PO (07:34)
[2019-12-29] MEDS: Folic Acid 1 MG Tablet 2 MG PO (07:35)
[2019-12-29] MEDS: Gabapentin 100 MG Capsule PO ×3 (07:35→16:59)
[2019-12-29] MEDS: Calcium Carbonate 500 MG Tablet PO (07:36)
[2019-12-29] MEDS: Gabapentin 300 MG Capsule PO ×3 (07:36→16:59)
[2019-12-29] MEDS: Allopurinol 100 MG Tablet PO (07:36)
[2019-12-29] MEDS: Spironolactone 25 MG Tablet 12.5 MG PO (07:37)
[2019-12-29] MEDS: Amiodarone 200 MG Tablet 400 MG PO (07:38)
[2019-12-29] MEDS: metroNIDAZOLE 500 MG Tablet PO ×2 (07:39→21:33)
[2019-12-29] MEDS: Glimepiride 4 MG Tablet PO (07:44)
[2019-12-29 07:53] LABS: International Normalized Ratio 3.7
[2019-12-29] MEDS: Furosemide 40 MG Tablet PO (08:51)
[2019-12-29] MEDS: Pantoprazole Sodium 40 MG Tablet PO (08:51)
[2019-12-29 08:52] VITALS: PULSE 76
[2019-12-29] MEDS: Metoprolol(XL)Succ 50 MG Tablet PO (08:52)
[2019-12-29] MEDS: Senna/Docusate Sodium 1 Tablet 2 TABLET PO ×2 (08:52→21:33)
[2019-12-29] MEDS: Fenofibrate 145 MG Tablet PO (08:53)
[2019-12-29] MEDS: Glucerna Shake 120 ML LIQUID PO ×3 (08:54→21:33)
[2019-12-29] MEDS: Clopidogrel Bisulfate 75 MG Tablet PO (08:54)
[2019-12-29] MEDS: Lisinopril 2.5 MG Tablet PO (08:54)
[2019-12-29] MEDS: Cefepime HCl 2 GM in 0.9% NS 100 ML Minibag Q12 IV ×2 (08:58→21:41)
[2019-12-29] MEDS: 0.9% NaCl Peripheral Flush Adult/Peds IV ×2 (09:06→21:52)
[2019-12-29 09:22] VITALS: BP 110/67; PULSE 76; RESP 17; TEMP 36.4; O2SAT 96
[2019-12-29 11:30] LABS: Bedside Glucose 176 mg/dL (70-110)
--- NOTE | 2019-12-29 13:26 | PCM.PN.BLA ---
Progress Note Afebile VSS Maintaining appropriate oxygen saturation on RA Oral intake is [] Discussed with nursing - no problems that need addressed Reviewed the PT/OT/ST notes Medication list reviewed. INR is 3.7 today and so we will continue to hold Coumadin. Blood sugar record was reviewed. Blood sugars are coming under better control with adjustments in the insulin. No further adjustments today Denies shortness of breath at rest. He does have some shortness of breath with exertion depending on how far he walks. His appetite is improving. He is sleeping well. No cough. Denies nausea/vomiting/abdominal pain. His mood is upbeat and he is smiling. Alert and oriented X 3, NAD, appropriate, cooperative PERRL, EOMI MM are moist and there are no mucosal lesions The neck is supple and the trachea is midline, there are no cervical nodes Lungs are clear to auscultation Heart has a RRR with no gallop and no rub. Abdomen is soft, NT, ND and there are normal bowel sounds heard in all quadrants. there was no guarding with palpation CN's II - XII are grossly intact without any focal neurologic deficits No peripheral edema, no calf tenderness Skin is warm and dry, no rashes, no breakdown. Mood is upbeat today 1. physical debility/deconditioning due to multiple hospital admissions starting 12/07/19. Most recent admission wo [facility] for loculated left parapneumonic effusion with respiratory insufficiency and collapse of the WILLIAM and the LLL. 2. loculated left parapneumonic effusion with collapse of the WILLIAM and the LLL - persistent despite chest tube and lytic agents. Not a surgical candidate because the thoracic surgeon though he would likely not survive the surgery. He is hemodynamically stable and on RA. Will be on antibiotics until 12/31 and then the antibiotics and the PICC can be discontinued. Cefepime and Flagyl. 3. DM II 4. supratherapeutic INR - restart Warfarin when the INR is < 2.6 Inpatient E&M: [id number] Subs Hosp L2
[2019-12-29 17:01] LABS: Bedside Glucose 77 mg/dL (70-110)
[2019-12-29 20:43] VITALS: BP 92/55; PULSE 74; RESP 16; TEMP 36.7; O2SAT 99
[2019-12-29 21:30] VITALS: PULSE 74; RESP 16; O2SAT 99
[2019-12-29] MEDS: Atorvastatin Calcium 40 MG Tablet PO (21:33)
[2019-12-29 22:41] LABS: Bedside Glucose 231 mg/dL (70-110)
[2019-12-30 05:56] LABS: Prothrombin Time (Protime)PT. 35.4 SECONDS (11.7-14.9)
[2019-12-30 05:58] LABS: International Normalized Ratio 3.5
[2019-12-30 06:45] LABS: Bedside Glucose 114 mg/dL (70-110)
[2019-12-30] MEDS: Dronabinol 2.5 MG Capsule PO ×2 (06:54→17:16)
[2019-12-30] MEDS: Levothyroxine 75 MCG Tablet PO (06:54)
[2019-12-30 07:30] VITALS: BP 97/57; PULSE 71; RESP 16; TEMP 36.5; O2SAT 95
[2019-12-30] MEDS: Aspirin 81 MG TAB.CHEW PO (07:33)
[2019-12-30] MEDS: Gabapentin 300 MG Capsule PO ×3 (07:33→17:16)
[2019-12-30] MEDS: Gabapentin 100 MG Capsule PO ×3 (07:33→17:16)
[2019-12-30] MEDS: Folic Acid 1 MG Tablet 2 MG PO (07:33)
[2019-12-30] MEDS: Ondansetron ODT 4 MG Tablet PO (07:33)
[2019-12-30] MEDS: Glimepiride 4 MG Tablet PO (07:33)
[2019-12-30] MEDS: Allopurinol 100 MG Tablet PO (07:34)
[2019-12-30] MEDS: Spironolactone 25 MG Tablet 12.5 MG PO (07:34)
[2019-12-30] MEDS: Clopidogrel Bisulfate 75 MG Tablet PO (07:35)
[2019-12-30] MEDS: Amiodarone 200 MG Tablet 400 MG PO (07:35)
[2019-12-30] MEDS: Pantoprazole Sodium 40 MG Tablet PO (07:35)
[2019-12-30] MEDS: Senna/Docusate Sodium 1 Tablet 2 TABLET PO ×2 (07:36→22:09)
[2019-12-30] MEDS: Fenofibrate 145 MG Tablet PO (07:36)
[2019-12-30 07:37] VITALS: PULSE 71
[2019-12-30] MEDS: Metoprolol(XL)Succ 50 MG Tablet PO (07:37)
[2019-12-30] MEDS: Glucerna Shake 120 ML LIQUID PO ×3 (07:38→22:11)
[2019-12-30] MEDS: metroNIDAZOLE 500 MG Tablet PO ×2 (09:03→22:11)
[2019-12-30] MEDS: Cefepime HCl 2 GM in 0.9% NS 100 ML Minibag Q12 IV ×2 (09:05→22:19)
[2019-12-30] MEDS: 0.9% NaCl Peripheral Flush Adult/Peds IV ×2 (09:16→22:21)
[2019-12-30 11:36] LABS: Bedside Glucose 205 mg/dL (70-110)
[2019-12-30] MEDS: Insulin Lispro 100 UNIT/ML INSULN.PEN SC (11:52)
[2019-12-30 17:26] LABS: Bedside Glucose 145 mg/dL (70-110)
[2019-12-30 20:16] VITALS: BP 108/67; PULSE 73; RESP 17; TEMP 36.7; O2SAT 98
[2019-12-30] MEDS: Atorvastatin Calcium 40 MG Tablet PO (22:10)
[2019-12-30] MEDS: Acetaminophen 325 MG Tablet 650 MG PO (22:12)
[2019-12-30 22:41] LABS: Bedside Glucose 204 mg/dL (70-110)
[2019-12-31 05:28] LABS: Prothrombin Time (Protime)PT. 31.6 SECONDS (11.7-14.9)
[2019-12-31] MEDS: Levothyroxine 75 MCG Tablet PO (05:31)
[2019-12-31 07:00] VITALS: BP 98/58; PULSE 70; RESP 12; TEMP 36.6; O2SAT 93
[2019-12-31 07:31] LABS: Bedside Glucose 90 mg/dL (70-110)
[2019-12-31] MEDS: Spironolactone 25 MG Tablet 12.5 MG PO (08:06)
[2019-12-31] MEDS: metroNIDAZOLE 500 MG Tablet PO ×2 (08:06→22:44)
[2019-12-31] MEDS: Fenofibrate 145 MG Tablet PO (08:06)
[2019-12-31] MEDS: Folic Acid 1 MG Tablet 2 MG PO (08:07)
[2019-12-31] MEDS: Gabapentin 100 MG Capsule PO ×3 (08:07→17:14)
[2019-12-31] MEDS: Calcium Carbonate 500 MG Tablet PO (08:07)
[2019-12-31] MEDS: Allopurinol 100 MG Tablet PO (08:07)
[2019-12-31] MEDS: Amiodarone 200 MG Tablet 400 MG PO (08:07)
[2019-12-31] MEDS: Furosemide 40 MG Tablet PO (08:07)
[2019-12-31] MEDS: Glimepiride 4 MG Tablet PO (08:08)
[2019-12-31] MEDS: Aspirin 81 MG TAB.CHEW PO (08:08)
[2019-12-31] MEDS: Dronabinol 2.5 MG Capsule PO ×2 (08:08→17:14)
[2019-12-31] MEDS: Gabapentin 300 MG Capsule PO ×3 (08:08→17:14)
[2019-12-31] MEDS: Pantoprazole Sodium 40 MG Tablet PO (08:08)
[2019-12-31] MEDS: Clopidogrel Bisulfate 75 MG Tablet PO (08:08)
[2019-12-31 08:10] VITALS: BP 98/58; PULSE 70
[2019-12-31] MEDS: Metoprolol(XL)Succ 50 MG Tablet PO (08:10)
--- NOTE | 2019-12-31 08:51 | PCM.PN.BLA ---
Progress Note Afebile VSS -blood pressures are a little on the low side however the MAP is always greater than 65. We have had to hold the Lisinopril the past 2 days because the systolic is < 100 Maintaining appropriate oxygen saturation on RA Oral intake is good. Discussed with nursing - no problems that need addressed Reviewed the PT/OT/ST notes Medication list reviewed. Blood sugar record was reviewed. All blood sugars yesterday were less than 210. Blood sugars at lunch and bedtime are little higher because he has not required any BS coverage for breakfast and supper. BS's are improved since he was restarted on Amaryl. INR is 3.0 today alert, smiling, appropriate and smiling. I was able to talk to his Lizet today and she tells me that all he ate for supper yesterday was ice cream. He is still c/o poor appetite even with the Marinol He is c/o of feeling fatigued all the time and down in the dumps. Impressions 1. physical debility due to multiple recent hospital admissions and severe weight loss 2. low BP's - despite holding the Lisinopril the past 2 days. If it continues to be low we may need to consider decreasing the Metoprolol XL 50 mg daily... He is now on amiodarone and has been in SR with HR in the 70's 3. Severe protein calorie malnutrition -still with poor appetite despite Marinol which has worked in the past. I am going to add Remeron 15 mg p.o. nightly 4. Diabetes mellitus type 2-continue current medications. Amaryl 4 mg p.o. daily and Lantus 8 units nightly. We will also continue sliding scale insulin 3 times daily AC. Adjust as necessary to keep the blood sugars consistently under 200 5. Paroxysmal atrial fibrillation on amiodarone and metoprolol XL for rate control/rhythm control 6. Supratherapeutic INR-INR is down to 3.0 today. We will hold the warfarin again tonight and recheck in the a.m. When the INR is closer to 2.5 will restart warfarin at 1 mg p.o. daily and continue to monitor daily PT/INR. Hold warfarin today and restart tomorrow at 1 mg daily Recheck CBC and BMP in the a.m and also magnesium STROKE Vital Signs/Narrative: Vital Signs Pulse BP 12/31/19 08:10 70 98/58 L Inpatient E&M: [id number] Subs Hosp L2
[2019-12-31 10:28] VITALS: O2SAT 94
[2019-12-31] MEDS: Cefepime HCl 2 GM in 0.9% NS 100 ML Minibag Q12 IV ×2 (11:08→22:54)
[2019-12-31] MEDS: 0.9% NaCl Peripheral Flush Adult/Peds IV (11:09)
[2019-12-31 12:05] LABS: Bedside Glucose 174 mg/dL (70-110)
[2019-12-31] MEDS: Insulin Lispro 100 UNIT/ML INSULN.PEN SC ×2 (12:28→17:14)
[2019-12-31 13:24] VITALS: O2SAT 94
[2019-12-31] MEDS: Glucerna Shake 120 ML LIQUID PO ×2 (14:23→18:22)
[2019-12-31 17:00] LABS: Bedside Glucose 188 mg/dL (70-110)
[2019-12-31 22:00] VITALS: BP 98/62; PULSE 70; RESP 18; TEMP 36.6; O2SAT 93
[2019-12-31 22:06] LABS: Bedside Glucose 207 mg/dL (70-110)
[2019-12-31] MEDS: Mirtazapine 15 MG Tablet PO (22:45)
[2019-12-31] MEDS: Atorvastatin Calcium 40 MG Tablet PO (22:45)
[2020-01-01] MEDS: Levothyroxine 75 MCG Tablet PO (06:09)
[2020-01-01 06:46] LABS: Bedside Glucose 82 mg/dL (70-110)
[2020-01-01] MEDS: Dronabinol 2.5 MG Capsule PO ×2 (06:52→16:59)
[2020-01-01] MEDS: Spironolactone 25 MG Tablet 12.5 MG PO (07:53)
[2020-01-01] MEDS: Amiodarone 200 MG Tablet 400 MG PO (07:53)
[2020-01-01] MEDS: Glucerna Shake 120 ML LIQUID PO ×4 (07:53→22:30)
[2020-01-01] MEDS: Pantoprazole Sodium 40 MG Tablet PO (07:53)
[2020-01-01] MEDS: Ondansetron ODT 4 MG Tablet PO (07:53)
[2020-01-01] MEDS: Gabapentin 100 MG Capsule PO ×3 (07:53→17:00)
[2020-01-01 07:54] VITALS: BP 109/67; PULSE 70
[2020-01-01] MEDS: Fenofibrate 145 MG Tablet PO (07:54)
[2020-01-01] MEDS: Allopurinol 100 MG Tablet PO (07:54)
[2020-01-01] MEDS: Clopidogrel Bisulfate 75 MG Tablet PO (07:54)
[2020-01-01] MEDS: Senna/Docusate Sodium 1 Tablet 2 TABLET PO ×2 (07:54→22:31)
[2020-01-01] MEDS: metroNIDAZOLE 500 MG Tablet PO ×2 (07:54→22:30)
[2020-01-01] MEDS: Folic Acid 1 MG Tablet 2 MG PO (07:54)
[2020-01-01] MEDS: Gabapentin 300 MG Capsule PO ×3 (07:54→16:59)
[2020-01-01] MEDS: Metoprolol(XL)Succ 50 MG Tablet PO (07:54)
[2020-01-01] MEDS: Aspirin 81 MG TAB.CHEW PO (07:55)
[2020-01-01] MEDS: Glimepiride 4 MG Tablet PO (07:55)
[2020-01-01] MEDS: Calcium Carbonate 500 MG Tablet PO (07:55)
[2020-01-01] MEDS: Lisinopril 2.5 MG Tablet PO (07:55)
[2020-01-01 07:58] LABS: Hematocrit 39.6 % (40-54); Hemoglobin 12.7 g/dL (13.0-16.5); Mean Corp Hgb Conc 32.1 g/dL (32-36); Mean Corpuscular Hgb 30.4 pg (27.0-32.0); Mean Corpuscular Volume 94.7 fL (80-94); Mean Platelet Vol. 11.1 fl (6.2-12.0); Platelet Count 298 K/mm3 (150-450); RBC Distribution Width CV 15.9 % (11.6-14.6); RBC Distribution Width SD 55.1 fl (35.1-43.9); Red Blood Count 4.18 M/mm3 (4.6-6.2); White Blood Count 7.4 K/mm3 (4.4-11.0)
[2020-01-01 08:15] LABS: Anion Gap 5 (5-15); BUN 17 mg/dL (7-18); BUN/Creat Ratio 14.4 RATIO (10-20); Calcium,Total 9.8 mg/dL (8.5-10.1); Chloride 104 mmol/L (98-107); Creatinine, Serum 1.18 mg/dL (0.70-1.30); EST Glomerular Filtration Rate 63 mL/min (>60); Est Glom Filt Rate - Afr Amer 76 mL/min (>60); Glucose 138 mg/dL (74-106); Magnesium 2.1 mg/dL (1.6-2.6); Potassium 4.8 mmol/L (3.5-5.1); Sodium Level 137 mmol/L (136-145)
[2020-01-01 09:06] LABS: International Normalized Ratio 2.3; Prothrombin Time (Protime)PT. 25.1 SECONDS (11.7-14.9)
[2020-01-01 09:24] VITALS: BP 109/67; PULSE 70; RESP 16; TEMP 36.5; O2SAT 95
[2020-01-01] MEDS: Insulin Lispro 100 UNIT/ML INSULN.PEN SC ×2 (11:21→16:59)
[2020-01-01 11:31] LABS: Bedside Glucose 302 mg/dL (70-110)
[2020-01-01 17:36] LABS: Bedside Glucose 152 mg/dL (70-110)
[2020-01-01 19:29] VITALS: BP 103/59; PULSE 70; RESP 16; TEMP 36.9; O2SAT 93
[2020-01-01 22:11] LABS: Bedside Glucose 161 mg/dL (70-110)
[2020-01-01] MEDS: Mirtazapine 15 MG Tablet PO (22:31)
[2020-01-01] MEDS: Atorvastatin Calcium 40 MG Tablet PO (22:31)
[2020-01-01] MEDS: 0.9% NaCl Peripheral Flush Adult/Peds IV (22:46)
[2020-01-02] MEDS: Dronabinol 2.5 MG Capsule PO ×2 (06:17→17:12)
[2020-01-02] MEDS: Levothyroxine 75 MCG Tablet PO (06:18)
[2020-01-02 06:56] LABS: Bedside Glucose 119 mg/dL (70-110)
[2020-01-02 08:15] LABS: International Normalized Ratio 2.1; Prothrombin Time (Protime)PT. 23.3 SECONDS (11.7-14.9)
[2020-01-02] MEDS: Glimepiride 4 MG Tablet PO (08:15)
[2020-01-02] MEDS: Aspirin 81 MG TAB.CHEW PO (08:16)
[2020-01-02] MEDS: Gabapentin 100 MG Capsule PO ×3 (08:16→17:13)
[2020-01-02] MEDS: Folic Acid 1 MG Tablet 2 MG PO (08:16)
[2020-01-02] MEDS: Calcium Carbonate 500 MG Tablet PO (08:16)
[2020-01-02] MEDS: Gabapentin 300 MG Capsule PO ×3 (08:16→17:14)
[2020-01-02] MEDS: Allopurinol 100 MG Tablet PO (08:17)
[2020-01-02] MEDS: Spironolactone 25 MG Tablet 12.5 MG PO (08:17)
[2020-01-02] MEDS: Amiodarone 200 MG Tablet 400 MG PO (08:18)
[2020-01-02] MEDS: Furosemide 40 MG Tablet PO (08:19)
[2020-01-02] MEDS: Glucerna Shake 120 ML LIQUID PO ×3 (08:19→19:39)
[2020-01-02] MEDS: metroNIDAZOLE 500 MG Tablet PO ×2 (08:19→19:40)
[2020-01-02] MEDS: Senna/Docusate Sodium 1 Tablet 2 TABLET PO ×2 (08:20→19:40)
[2020-01-02] MEDS: Clopidogrel Bisulfate 75 MG Tablet PO (08:20)
[2020-01-02] MEDS: Pantoprazole Sodium 40 MG Tablet PO (08:20)
[2020-01-02 08:21] VITALS: PULSE 70
[2020-01-02] MEDS: Metoprolol(XL)Succ 50 MG Tablet PO (08:21)
[2020-01-02] MEDS: Fenofibrate 145 MG Tablet PO (08:21)
[2020-01-02] MEDS: Lisinopril 2.5 MG Tablet PO (08:22)
[2020-01-02 09:04] VITALS: BP 118/60; PULSE 70; RESP 18; TEMP 36.4; O2SAT 94
[2020-01-02] MEDS: Insulin Lispro 100 UNIT/ML INSULN.PEN SC (11:44)
[2020-01-02 12:11] LABS: Bedside Glucose 154 mg/dL (70-110)
--- NOTE | 2020-01-02 14:22 | PCM.PN.BLA ---
Progress Note Afebile VSS Maintaining appropriate oxygen saturation on RA Oral intake is [] Discussed with nursing - no problems that need addressed Reviewed the PT/OT notes Medication list reviewed. Sugar record reviewed. INR is 2.1 today. He was restarted on warfarin 1 mg daily on 01/01/2020. He had been supratherapeutic for several days and warfarin was on hold. He is still not eating. He is just not hungry. Low motivation. He is looking very run down and color is not as good. Lungs - CTA Heart - RRR, no gallop Abdomen-soft, nontender, nondistended, bowel sounds in all quadrants, no guarding with palpation No peripheral edema Mucous membranes are moist Impression 1. depression with inanition - continue the Marinol and the Remeron. Change the diet to regular until his appetite improves. 2. severe protein calorie malnutrition 3. physical debility debility due to malnutrition and multiple recent hospital admissions and infections. 4. PAF - continue warfarin and check daily INR's for the next few days Inpatient E&M: [id number] Subs Hosp L2
[2020-01-02 17:16] LABS: Bedside Glucose 142 mg/dL (70-110)
[2020-01-02 19:30] VITALS: BP 120/65; PULSE 71; RESP 18; TEMP 36.4; O2SAT 97
[2020-01-02] MEDS: Atorvastatin Calcium 40 MG Tablet PO (19:40)
[2020-01-02] MEDS: Mirtazapine 15 MG Tablet PO (19:40)
--- NOTE | 2020-01-02 19:41 | NURSING ---
per pt request for early meds admin to enable early bedtime.
[2020-01-02] MEDS: 0.9% NaCl Peripheral Flush Adult/Peds IV (19:46)
[2020-01-02 21:26] LABS: Bedside Glucose 219 mg/dL (70-110)
[2020-01-02 22:00] VITALS: RESP 17; O2SAT 97
[2020-01-03] MEDS: Levothyroxine 75 MCG Tablet PO (05:51)
[2020-01-03 07:10] LABS: Bedside Glucose 118 mg/dL (70-110)
[2020-01-03] MEDS: Dronabinol 2.5 MG Capsule PO ×2 (07:32→16:39)
[2020-01-03] MEDS: Aspirin 81 MG TAB.CHEW PO (07:33)
[2020-01-03] MEDS: Glimepiride 4 MG Tablet PO (07:34)
[2020-01-03] MEDS: Folic Acid 1 MG Tablet 2 MG PO (07:34)
[2020-01-03] MEDS: Spironolactone 25 MG Tablet 12.5 MG PO (07:35)
[2020-01-03] MEDS: Gabapentin 300 MG Capsule PO ×3 (07:35→16:41)
[2020-01-03] MEDS: Allopurinol 100 MG Tablet PO (07:35)
[2020-01-03] MEDS: Gabapentin 100 MG Capsule PO ×3 (07:35→16:41)
[2020-01-03] MEDS: Calcium Carbonate 500 MG Tablet PO (07:35)
[2020-01-03 07:36] VITALS: PULSE 70
[2020-01-03] MEDS: Glucerna Shake 120 ML LIQUID PO ×4 (07:36→21:51)
[2020-01-03] MEDS: Amiodarone 200 MG Tablet 400 MG PO (07:36)
[2020-01-03] MEDS: Metoprolol(XL)Succ 50 MG Tablet PO (07:36)
[2020-01-03] MEDS: Senna/Docusate Sodium 1 Tablet 2 TABLET PO ×2 (07:36→21:50)
[2020-01-03] MEDS: metroNIDAZOLE 500 MG Tablet PO ×2 (07:36→21:50)
[2020-01-03] MEDS: Pantoprazole Sodium 40 MG Tablet PO (07:36)
[2020-01-03] MEDS: Clopidogrel Bisulfate 75 MG Tablet PO (07:36)
[2020-01-03] MEDS: Fenofibrate 145 MG Tablet PO (07:37)
[2020-01-03] MEDS: Lisinopril 2.5 MG Tablet PO (07:37)
[2020-01-03 08:07] LABS: International Normalized Ratio 2.3
[2020-01-03 09:45] VITALS: BP 103/65; PULSE 70; RESP 18; TEMP 36.8; O2SAT 95
[2020-01-03 11:36] LABS: Bedside Glucose 147 mg/dL (70-110)
[2020-01-03] MEDS: Insulin Lispro 100 UNIT/ML INSULN.PEN SC (16:44)
[2020-01-03 17:21] LABS: Bedside Glucose 165 mg/dL (70-110)
[2020-01-03 19:43] VITALS: BP 110/69; PULSE 70; RESP 16; TEMP 36.6; O2SAT 98
[2020-01-03 21:36] LABS: Bedside Glucose 145 mg/dL (70-110)
[2020-01-03 21:50] VITALS: PULSE 70; RESP 16; O2SAT 98
[2020-01-03] MEDS: Atorvastatin Calcium 40 MG Tablet PO (21:50)
[2020-01-03] MEDS: Mirtazapine 15 MG Tablet PO (21:50)
[2020-01-03 21:56] VITALS: BP 110/69; PULSE 70; RESP 16; TEMP 36.6; O2SAT 98
[2020-01-04] MEDS: Levothyroxine 75 MCG Tablet PO (06:01)
[2020-01-04 07:04] LABS: International Normalized Ratio 2.2; Prothrombin Time (Protime)PT. 24.8 SECONDS (11.7-14.9)
[2020-01-04 07:05] LABS: Bedside Glucose 95 mg/dL (70-110)
[2020-01-04] MEDS: Glimepiride 4 MG Tablet PO (07:53)
[2020-01-04] MEDS: Calcium Carbonate 500 MG Tablet PO (07:53)
[2020-01-04] MEDS: Gabapentin 100 MG Capsule PO ×3 (07:53→18:18)
[2020-01-04] MEDS: Allopurinol 100 MG Tablet PO (07:53)
[2020-01-04] MEDS: Dronabinol 2.5 MG Capsule PO ×2 (07:53→18:16)
[2020-01-04] MEDS: Gabapentin 300 MG Capsule PO ×3 (07:53→18:17)
[2020-01-04] MEDS: Aspirin 81 MG TAB.CHEW PO (07:53)
[2020-01-04] MEDS: Spironolactone 25 MG Tablet 12.5 MG PO (07:54)
[2020-01-04] MEDS: Folic Acid 1 MG Tablet 2 MG PO (07:55)
[2020-01-04] MEDS: Pantoprazole Sodium 40 MG Tablet PO (08:47)
[2020-01-04] MEDS: Clopidogrel Bisulfate 75 MG Tablet PO (08:48)
[2020-01-04] MEDS: Amiodarone 200 MG Tablet 400 MG PO (08:48)
[2020-01-04 10:00] VITALS: BP 102/56; PULSE 70; RESP 16; TEMP 36.5; O2SAT 94
[2020-01-04 10:19] VITALS: PULSE 71
[2020-01-04] MEDS: Metoprolol(XL)Succ 50 MG Tablet PO (10:19)
[2020-01-04] MEDS: Furosemide 40 MG Tablet PO (10:19)
[2020-01-04] MEDS: Lisinopril 2.5 MG Tablet PO (10:20)
--- NOTE | 2020-01-04 11:39 | CASEMGMT ---
Social Work IDT met with pt and pt via conference call for Team meeting. Pt is able to transfer at [facility] to [facility] and is waking 165ft with FWW at [facility] to [facility], trialed cane-unsuccessful. Pt is able to do 5 steps with 2 HR at CGA to min assist. Pt fatigues easily. Pt is CGA assist for LE ADLS and is toileting at CGA in beginning of week and max assist at the end of the week. Pt is transferring into the shower at min assist and is set up supervised for grooming standing at the beginning of the week but had to complete grooming tasks seated by the end of week. Pt has decreased appetite and is now prescribed Remeron for appetite stimulation and depression. Explained Medicare insurance to pt, pt has been given 12 days, DC 01/04. Therapy recommending more strengthening and pt feels as though he could do more strengthening before going home. Provided options to for SNF referrals, Pt requesting pt go to [facility] TCU. SW called TCU, bed available, pt to DC to TCU 01/04. Plan: DC 01/04, No DME needs, TCU Karla Sexton, social work internet technology manager Erika Abad, FERR[employer]AT PILOT POLLS OR SURVEYS INTERVIEWER
[2020-01-04] MEDS: Glucerna Shake 120 ML LIQUID PO ×4 (11:43→20:07)
[2020-01-04] MEDS: Fenofibrate 145 MG Tablet PO (11:43)
[2020-01-04] MEDS: metroNIDAZOLE 500 MG Tablet PO ×2 (11:43→20:03)
[2020-01-04] MEDS: Senna/Docusate Sodium 1 Tablet 2 TABLET PO ×2 (11:43→20:03)
[2020-01-04] MEDS: Insulin Lispro 100 UNIT/ML INSULN.PEN SC ×2 (11:48→18:20)
[2020-01-04 12:15] LABS: Bedside Glucose 154 mg/dL (70-110)
--- NOTE | 2020-01-04 14:02 | PCM.PN.BLA ---
Progress Note Patient was seen on TEAM rounds today. His was on the phone on conference call listening in. Afebile VSS Maintaining appropriate oxygen saturation on RA Oral intake is good today. He ate 100% of his breakfast. Discussed with nursing - no problems that need addressed Reviewed the PT/OT/ST notes Medication list reviewed. He is in the recliner and smiling today. He fatigues easily and gets SOB when fatigued but, he is motivated to do his therapy so he can go home. He is sleeping well. No N/V. The blood sugar record was reviewed. Blood sugars are under good control....they may start to increase now that he is eating much better AND he has been place on a regular diet to encourage him to eat. Alert, appropriate, oriented x3, better color in his face today and he is more alert and smiling. Lungs-clear to auscultation Heart-regular rate and rhythm, no gallop Abdomen-soft, nontender, no guarding with palpation, bowel sounds present. Last bowel movement was 01/01/2020 no peripheral edema skin is warm and dry and no rashes or breakdown Impression 1. depression with inanition - continue the Marinol and the Remeron. Change the diet to regular until his appetite improves. Continue to monitor blood sugars before meals and at bedtime and continue sliding insulin scale 2. severe protein calorie malnutrition-his weight has decreased from 178 pounds and 2.1 ounces on 12/24/2021 172 pounds and 2.9 ounces today. Almost 6 lb weight loss since admission. Prior to admission he was 207 pounds and 14 ounces on 11/30/2019. He has lost 35 pounds since 11/30/2019 which is only about 5 weeks. 3. physical debility due to malnutrition and multiple recent hospital admissions and infections. 4. PAF - continue warfarin and check daily INR's for the next few days BMP and CBC in the AM Plan transfer to TCU on 01/05/20 - pt and his Lizet are agreeable STROKE Vital Signs/Narrative: Vital Signs Pulse 01/04/20 10:19 71 Inpatient E&M: [id number] Subs Hosp L2
--- NOTE | 2020-01-04 16:48 | CASEMGMT ---
Social Work Reviewed and agreed with social work real estate intern documentation on this date. Erika Abad, UTILITY PORTER REFRIGERATION ENGINEER
--- NOTE | 2020-01-04 16:51 | CHAPLAIN ---
Type of Pastoral Visit ___ Initial Visit _x__ Follow-up Visit ___ On-call Visit ___ General Patient Visit ___ Spiritual Assessment ___ Family Conference ___ Bereavement ___ Rapid Response ___ Code Blue ___ Other (describe below) Pastoral Care Referral From _x__ Patient ___ Family ___ Nurse ___ Physician ___ Powder Blender And Pourer ___ State Superintendent Of Schools ___ Other (describe below) Sacrament/Intervention _x__ Active listening ___ Anointing ___ Evangelical ___ Bereavement ___ Communion ___ Karin exploration ___ ___ Life review _x__ Prayer ___ Reconciliation ___ Sacrament of Sick _x__ Supportive presence ___ Wedding ___ Other (describe below) Pastoral Comments
[2020-01-04 17:35] LABS: Bedside Glucose 202 mg/dL (70-110)
[2020-01-04] MEDS: Mirtazapine 15 MG Tablet PO (20:03)
[2020-01-04] MEDS: Atorvastatin Calcium 40 MG Tablet PO (20:03)
[2020-01-04] MEDS: 0.9% NaCl Peripheral Flush Adult/Peds IV (20:03)
[2020-01-04 20:15] VITALS: PULSE 71; RESP 16; O2SAT 94
[2020-01-04 20:16] VITALS: BP 112/68; PULSE 91; RESP 16; TEMP 36.4; O2SAT 94
[2020-01-04 20:36] LABS: Bedside Glucose 158 mg/dL (70-110)
--- NOTE | 2020-01-05 03:56 | NURSING ---
Reviewed and agree with [facility] documentation and charting.
[2020-01-05] MEDS: Levothyroxine 75 MCG Tablet PO (05:14)
[2020-01-05] MEDS: Magnesium Hydroxide 30 ML UDC PO (05:14)
[2020-01-05 06:25] LABS: Bedside Glucose 87 mg/dL (70-110)
[2020-01-05 07:00] VITALS: BP 103/62; PULSE 70; RESP 17; TEMP 36.3; O2SAT 93
[2020-01-05] MEDS: Amiodarone 200 MG Tablet 400 MG PO (07:52)
[2020-01-05] MEDS: Glimepiride 4 MG Tablet PO (07:52)
[2020-01-05] MEDS: Allopurinol 100 MG Tablet PO (07:52)
[2020-01-05] MEDS: Gabapentin 300 MG Capsule PO ×2 (07:53→12:13)
[2020-01-05] MEDS: Aspirin 81 MG TAB.CHEW PO (07:53)
[2020-01-05] MEDS: Dronabinol 2.5 MG Capsule PO (07:53)
[2020-01-05] MEDS: Gabapentin 100 MG Capsule PO ×2 (07:53→12:13)
[2020-01-05 08:06] LABS: International Normalized Ratio 2.2; Prothrombin Time (Protime)PT. 24.5 SECONDS (11.7-14.9)
[2020-01-05] MEDS: Calcium Carbonate 500 MG Tablet PO (08:23)
[2020-01-05] MEDS: Folic Acid 1 MG Tablet 2 MG PO (08:23)
[2020-01-05 08:24] VITALS: PULSE 77
[2020-01-05] MEDS: Metoprolol(XL)Succ 50 MG Tablet PO (08:24)
[2020-01-05] MEDS: Glucerna Shake 120 ML LIQUID PO (09:27)
[2020-01-05] MEDS: Clopidogrel Bisulfate 75 MG Tablet PO (09:27)
[2020-01-05] MEDS: Fenofibrate 145 MG Tablet PO (09:27)
[2020-01-05] MEDS: Senna/Docusate Sodium 1 Tablet 2 TABLET PO (09:27)
[2020-01-05] MEDS: Spironolactone 25 MG Tablet 12.5 MG PO (09:30)
[2020-01-05] MEDS: metroNIDAZOLE 500 MG Tablet PO (09:30)
[2020-01-05] MEDS: Pantoprazole Sodium 40 MG Tablet PO (09:30)
[2020-01-05] MEDS: Lisinopril 2.5 MG Tablet PO (09:31)
[2020-01-05] MEDS: 0.9% NaCl Peripheral Flush Adult/Peds IV (09:49)
[2020-01-05 09:55] LABS: Bedside Glucose 140 mg/dL (70-110)
[2020-01-05 11:25] LABS: Bedside Glucose 158 mg/dL (70-110)
--- NOTE | 2020-01-05 12:06 | PCM.TXEXTCAR ---
- Diet 01/03/20 15:34 Diet: Regular Diet Is pt able to select menu?: Yes Diet Comments: 2000cc fluid restriction - Routine Orders/Code Status Enema Type: Fleetz Enema Frequency: Daily PRN Suppository Type: Dulcolax 10mg Suppository Frequency: Daily PRN O2 Frequency: PRN Keep PO Greater than or Equal to (%): 90 Routine Lab Work: - - PT/INR every 3 days for 3 times......if the INR is stable then can transition to once a week Code Status: Full Code - Wound(s) Left Lateral Back Wound Type: Chest tube site Left Lateral Side Wound Type: Scab Lower back- midde Wound Type: Chest tube site L Great toe Wound Type: Scab R second toe Wound Type: Scab LFA Wound Type: IV wound RFA Wound Type: IV wound 2nd toe left foot Wound Type: Abrasion - Therapies Weight Bearing: Full weight bearing Extremity Affected:: generalized weakness Physical Therapy: Eval and Treat Occupational Therapy: Eval and Treat - Problem/Diagnosis (1) Heart failure Status: Chronic Comment: systolic with EF of 35% and diastolic dysfunction Current Visit: No (2) Physical debility Status: Acute Comment: Due to deconditioning from recent admission for PNA, CHF and hypotension followed by Large loculated left effusion with collapse of the left lung with placement of L thoracostomy tube for 1 week. Current Visit: Yes (3) Supratherapeutic INR Status: Resolved Current Visit: Yes (4) Macrocytic anemia Status: Acute Current Visit: No (5) Non-ST elevation (NSTEMI) myocardial infarction Status: Chronic Comment: elevated troponin to 0.192 on 11/27/19 - indeterminate, had just recently had a INJECTION MOLDING MACHINE OPERATOR to the RCA at [facility] in early november Current Visit: No (6) Presence of stent of bypass graft Status: Chronic Comment: PCI/FEDERICO to the SVG to RCA @[facility] 11/23/19 Current Visit: No (7) 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 Status: Chronic Comment: March 2012 Current Visit: No (8) Paroxysmal atrial fibrillation Status: Chronic Current Visit: Yes (9) History of myocardial infarction Status: Chronic Comment: [place] in 1981 and 1983 Current Visit: No (10) Type 2 diabetes mellitus Status: Chronic Current Visit: No (11) Atrioventricular block Status: Chronic Comment: has a PM/AICD Current Visit: No (12) Paroxysmal ventricular tachycardia Status: Chronic Comment: monomorphic - has AICD and is now on Amiodarone Current Visit: No (13) Premature ventricular contraction Status: Chronic Current Visit: No (14) Aortocoronary bypass status Status: Chronic Comment: CABG x3 - KO to diag, SVG to RCA and SVG to RCA 06/18/1996 Current Visit: No (15) Ischemic cardiomyopathy Status: Chronic Comment: 35% EF Current Visit: No (16) Atherosclerotic heart disease of [place] coronary artery without angina pectoris Status: Chronic Comment: CABG x3 - KO to diag, SVG to RCA and SVG to RCA 06/18/1996 Current Visit: No (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 Current Visit: Yes (21) Atrial flutter Status: Chronic Current Visit: Yes (22) Status post thoracostomy tube placement Status: Acute Comment: 12/14/19 - removed on 12/22/19 Current Visit: Yes (23) History of PTCA Status: Acute Comment: 11/23/19 at [facility] for 90% stenosis of SVG to RCA with FEDERICO - Dr. Edward Oshea [facility] Current Visit: Yes (24) Inanition Status: Acute Current Visit: Yes (25) Severe malnutrition Status: Acute Comment: severe wt loss with moderate decrease on energy intake Current Visit: Yes (26) Hyponatremia Status: Resolved Current Visit: Yes - Allergies/Procedures Done in Hospital Allergies/Adverse Reactions: Allergies Iodine and Iodide Containing Produc Adverse Reaction (Severe, Verified 12/01/19 17:31) Diarrhea metformin Adverse Reaction (Verified 12/01/19 17:31) Upset Stomach niacin Adverse Reaction (Verified 12/01/19 17:31) Other Procedures: None - Type of Care/Length of Stay Estimated LOS: Convalescent Care Less Than 30 days Type of Care Needed: Skilled Rehab Potential: Good Prognosis: Good - Additional Orders/Day of Discharge Additional Orders: He has finally started to eat with both Marinol and Remeron. He tolerates the Marinol well with no increase in fatigue or confusion. The INR is very labile. He has been stable on 1 mg of Warfarin daily for the past 5 days. I have him on a regular diet to promote better intake. The blood sugars have been very good. As the appetite and intake improve the Insulin and the Warfarin dose may need to be adjusted. H&P will serve as current which was dated: 12/25/19 Day of Discharge: 01/05/20 - Dietary and Speech Recommendations Dietitian Recommendations/Changes: Diet is Regular with 2000 cc daily fluid restriction - Follow Up Care Primary Care Physician: Angel Lang MD [Primary Care Provider] - Please follow up with your Primary Care Physician in: following DC from TCU Please Follow Up With: Juan Manuel Wilkinson MD When: following DC form TCU
[2020-01-05] MEDS: Insulin Lispro 100 UNIT/ML INSULN.PEN SC (12:14)
--- NOTE | 2020-01-05 12:38 | PCM.DC.SUM ---
Discharge Date and Diagnosis - Problem List Patient Problems: Active and Suspected Problems (Last Reviewed 12/28/19 @ 14:[address] Alicja Ortega DO) Physical debility (Acute) Due to deconditioning from recent admission for PNA, CHF and hypotension followed by Large loculated left effusion with collapse of the left lung with placement of L thoracostomy tube for 1 week. Status post thoracostomy tube placement (Acute) 12/14/19 - removed on 12/22/19 History of PTCA (Acute) 11/23/19 at [facility] for 90% stenosis of SVG to RCA with FEDERICO - Dr. Edward Oshea [facility] (Acute) Severe malnutrition (Acute) severe wt loss with moderate decrease on energy intake Date of Admission: 12/24/19 Date of Discharge: 01/05/20 - Primary Discharge Diagnosis Active and Suspected Problems (Last Reviewed 12/28/19 @ 14:[address] Alicja Ortega DO) Physical debility (Acute) Due to deconditioning from NSTEMI in November followed by a stent at [facility], recent admission for HCAP, CHF and hypotension followed by Large loculated left effusion with collapse of the left lung with placement of L thoracostomy tube for 1 week. Status post thoracostomy tube placement (Acute) 12/14/19 - removed on 12/22/19 History of PTCA (Acute) 11/23/19 at [facility] for 90% stenosis of SVG to RCA with FEDER[facility] - Dr. Edward Oshea [facility] (Acute) Severe malnutrition (Acute) severe wt loss (35lbs since 12/03/19) with moderate decrease on energy intake Hyponatremia-resolved Supratherapeutic INR-resolved - Secondary Discharge Diagnosis Chronic Problems (Last Reviewed 12/28/19 @ 14:[address] Alicja Ortega DO) Heart failure (Chronic) systolic with EF of 35% and diastolic dysfunction Loculated pleural effusion (Chronic) left side with collapse of the LLL...did not re-expand with thoracostomy tube, even with lytic agent. Non-ST elevation (NSTEMI) myocardial infarction (Chronic) elevated troponin to 0.192 on 11/27/19 - indeterminate, had just recently had a OPERATING ENGINEER APPRENTICE to the RCA at [facility] in early November Presence of stent of bypass graft (Chronic ~11/23/19) PCI/FEDERICO to the SVG to RCA @[facility] 11/23/19 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 (Chronic ~04/20/02) March 2012 Paroxysmal atrial fibrillation/Flutter (Chronic) History of myocardial infarction (Chronic) [place] in 1981 and 1983 Type 2 diabetes mellitus (Chronic) Atrioventricular block (Chronic) has a PM/AICD Paroxysmal ventricular tachycardia (Chronic) monomorphic - has AICD and is now on Amiodarone Premature ventricular contractions (Chronic) Aortocoronary bypass status (Chronic ~06/18/96) CABG x3 - KO to diag, SVG to RCA and SVG to RCA 06/18/1996 Ischemic cardiomyopathy (Chronic) 35% EF Atherosclerotic heart disease of [place] coronary artery without angina pectoris (Chronic) CABG x3 - KO to diag, SVG to RCA and SVG to RCA 06/18/1996 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 (Chronic) Warfarin CKD (chronic kidney disease), stage III (Chronic) HLD (hyperlipidemia) (Chronic) Hospital Course and Treatment Imaging Results: Clinical Impression(s) from Imaging Studies Chest X-Ray 12/26/19 14:31 IMPRESSION: No change in large left-sided pleural effusion with left lower lobe atelectasis Electronically Signed: Gagan Lam MD at 16:38 EDT Tel , Service support , Laboratory Results - last 24 hr 01/04/20 01/04/20 01/05/20 17:29 20:21 06:21 PT INR POC Glucose 202 H 158 H 87 01/05/20 01/05/20 01/05/20 07:10 09:40 11:19 PT 24.5 H INR 2.2 POC Glucose 140 H 158 H none Operations: None Procedures: None Summary of Care Provided: The patient is a 79 year old M with a past medical history of hypertension, hyperlipidemia, diabetes mellitus type 2, diabetic peripheral polyneuropathy in both lower extremities, coronary artery disease, CABG in 1995, PTCA with [facility]ER[facility] to the SVG to RCA at [facility] in November 2019 after a NSTEMI, ischemic cardiomyopathy with a 35% ejection fraction, diastolic dysfunction, paroxysmal ventricular tachycardia on amiodarone and with PM/AICD, paroxysmal atrial fibrillation/flutter, gout, obstructive sleep apnea compliant with PAP therapy, remote hx of DVT UE, chronic anticoagulation with warfarin and recent large loculated left parapneumonic effusion requiring thoracostomy tube and a lytic agent for 1 week along with IV antibiotics with persistent effusion and persistent collapse of the left LL due to fibrosis and scarring who was [facility] for > 3 hours of therapy daily to restore him at or near his prior level of independence. Marcial had an NSTEMI and ventricular tachycardia and went to [facility] for a stent (was also started on Amiodarone). He was at [facility] from November 15 to November 26. Following DC from [facility] with HCAP/hypotension. He was discharged home on 12/01/2019 but, he returned to the emergency department that same day complaining of increased shortness of breath. He was diagnosed with acute congestive heart failure and readmitted to the hospital. He was treated for CHF and it resolved. He was transferred to the [facility] on 12/05/19 for physical debility due to HCAP/hypotension. Marcial was transferred back to [facility] on 12/11/19 for a large loculated Left pleural effusion/empyema. Following treatment/discharge from [facility] for the pleural effusion he was readmitted to the [facility] on 12/24/19 with a PICC line and instructions to continue IV cefepime and PO Metronidazole for 8 days. On 12/05/2019 his weight was 190 pounds. His weight on 12/11/2019 his weight was 190 pounds and 7 ounces. When he was readmitted to the rehab unit on 12/25/2019 his weight was 178 pounds. At the time of transfer to TCU his weight is 172 pounds and 13 ounces. Since 12/05/19 he has lost between 17 and 18 lbs. He has been diagnosed by the paint tester as having moderate to severe malnutrition. He was started on Marinol 2.5 mg BID on 12/25/19 because this has been effective in the past. His appetite failed to improve significantly on Marinol and he was evaluated for depression and started on Remeron 15 mg Q HS on 12/31/19. His diet was advanced to regular to allow him foods he wanted to try. On 01/04/20 he seemed to turn a corner and his appetite increased significantly. He is eating nearly 100% of his meals now on Marinol and Remeron. He is participating in therapy and seems to be motivated to do well and get home. HGB is stable and the WBC is normal. Creat is stable. He is off the antibiotics and remains afebrile. His is maintaining an appropriate oxygen saturation on RA. The INR has been stable between 2.1-2.3 for 5 days on 1 mg of Warfarin daily. He has been in sinus rhythm. He is not ready to go home and so he was transferred to TCU for additional PT/OT prior to returning home. His prognosis is good. He will follow up with Dr. Wilkinson and Dr. Lang following DC from TCU. If we are still in the middle of the thomas pandemic he should have phone appts as he is weak, malnourished and immunocompromised at this time. I called his Lizet on the date of DC and updated her on his condition. Alert, seated in the recliner eating his lunch, pleasant, smiling and in no apparent distress Lungs-diminished on the left approximately two th[address] the way up the left posterior lung field. He does have some clear breath sounds in the left upper lobe. There are also a few coarse crackles in the left base. The right base has minimal coarse crackles that mostly resolved after a few deep breaths. He was encouraged to continue using the incentive spirometer hourly while awake. There was no wheezing. He had no conversational dyspnea and he was not tachypneic. Heart-regular rate and rhythm, no gallop Abdomen-soft, nontender, nondistended, no guarding with palpation, bowel sounds present No peripheral edema No focal neurologic deficits. His is concerned that he is having some difficulty with short-term memory but I explained that he has been very ill and he is depressed. Although the Remeron has been effective in helping with appetite the antidepressant effects will likely not really kick in for another 2 to 3 weeks. No rashes and no skin breakdown This note was generated with iFoodation software. It may contain incorrect words, spelling, and punctuation that were not noted in checking the note before signing. Patient Problems: Active and Suspected Problems (Last Reviewed 12/28/19 @ 14:[address] Alicja Ortega, DO) Physical debility (Acute) Due to deconditioning from recent admission for PNA, CHF and hypotension followed by Large loculated left effusion with collapse of the left lung with placement of L thoracostomy tube for 1 week. Status post thoracostomy tube placement (Acute) 12/14/19 - removed on 12/22/19 History of PTCA (Acute) 11/23/19 at [facility] for 90% stenosis of SVG to RCA with FEDER[facility] - Dr. Edward Oshea [facility] (Acute) Severe malnutrition (Acute) severe wt loss with moderate decrease on energy intake - Physical Exam Vitals/I&O's: Vital Signs Temp Pulse Resp BP Pulse Ox 97.4 F L 77 17 103/62 93 01/05/20 07:00 01/05/20 08:24 01/05/20 07:00 01/05/20 07:00 01/05/20 07:00 Oxygen Delivery Method Room Air Weight: 172 lb 13.478 oz Body Mass Index (BMI) 28.5 Finger Stick Blood Glucose 190 Intake and Output for Last 24 Hours 01/03/20 01/04/20 01/05/20 23:59 23:59 23:59 Intake Total 1620 / 1620 1420 / 1420 100 / 100 Output Total 1375 / 1375 950 / 950 175 / 175 Balance 245 / 245 470 / 470 -75 / -75 Laboratory Results 01/04/20 17:29: POC Glucose 202 H 01/04/20 20:21: POC Glucose 158 H 01/05/20 06:21: POC Glucose 87 01/05/20 07:10: PT 24.5 H, INR 2.2 01/05/20 09:40: POC Glucose 140 H 01/05/20 11:19: POC Glucose 158 H Current Medications Acetaminophen (Tylenol) 650 mg PO Q6H PRN PRN PRN Reason: Pain Score 1-10/Temp > 100.7 F Last Admin: 12/30/19 22:12 Dose: 650 mg Documented by: Allopurinol (Zyloprim) 100 mg PO DAILYCM YOMAIRA Last Admin: 01/05/20 07:52 Dose: 100 mg Documented by: Amiodarone HCl (Cordarone) 400 mg PO DAILY [facility] Last Admin: 01/05/20 07:52 Dose: 400 mg Documented by: [facility]ir[facility] (A[facility]in, Baby) [facility] Last Admin: 01/05/20 07:53 Dose: 81 mg Documented by: Atorvastatin Calcium (Lipitor) 40 mg PO QHS [facility] Last Admin: 01/04/20 20:03 Dose: 40 mg Documented by: Bisacodyl (Dulcolax) 10 mg RECTAL .PRN X 1 PRN PRN Reason: Constipation Calcium Carbonate (Tums) 500 [facility] Last Admin: 01/05/20 08:23 Dose: 500 mg Documented by: Cholecalciferol (Vitamin D (25mcg)) 1,000 unit PO DAILY [facility] Last Admin: 01/05/20 08:23 Dose: 1,000 unit Documented by: Clopidogrel Bisulfate (Plavix) 75 mg PO DAILY [facility] Last Admin: 01/05/20 09:27 Dose: 75 mg Documented by: Dronabinol (Marinol) 2.5 mg PO BIDAC [facility] Last Admin: 01/05/20 07:53 Dose: 2.5 mg Documented by: Fenofibrate (Tricor) 145 mg PO DAILY [facility] Last Admin: 01/05/20 09:27 Dose: 145 mg Documented by: Folic Acid (Folic Acid) [facility] Last Admin: 01/05/20 08:23 Dose: 2 mg Documented by: Furosemide (Lasix) 40 mg PO QODAY [facility] Last Admin: 01/04/20 10:19 Dose: 40 mg Documented by: Gabapentin (Neurontin) 100 mg PO TIDCM [facility] Last Admin: 01/05/20 12:13 Dose: 100 mg Documented by: Gabapentin (Neurontin) 300 mg PO TIDCM [facility] Last Admin: 01/05/20 12:13 Dose: 300 mg Documented by: Glimepiride (Amaryl) 4 mg PO DAILY@0800 [facility] Last Admin: 01/05/20 07:52 Dose: 4 mg Documented by: Sodium Chloride () 250 mls @ 15 mls/hr IV .[id number] PRN PRN Reason: Saline Flush Last Infusion: 01/02/20 19:16 Dose: Infused Documented by: Sodium Chloride () 250 mls @ 15 mls/hr IV .[id number] PRN PRN Reason: Additional IVPB Infusion Last Infusion: 12/31/19 11:14 Dose: Infused Documented by: Insulin Glargine (Lantus ([facility])) 8 units SC QHS [facility] Last Admin: 01/04/20 20:22 Dose: 8 u Documented by: Insulin Human Lispro (Humalog Kwikpen ([facility])) 0 unit SC TIDAC [facility]; Protocol Last Admin: 01/05/20 12:14 Dose: 1 u Documented by: Levothyroxine Sodium (Synthroid) 75 mcg PO DAILY@0600 [facility] Last Admin: 01/05/20 05:14 Dose: 75 mcg Documented by: Lisinopril (Zestril) 2.5 mg PO DAILY [facility] Last Admin: 01/05/20 09:31 Dose: 2.5 mg Documented by: Magnesium Hydroxide (Milk Of Magnesia) 30 ml PO .PRN X 1 PRN PRN Reason: Constipation Last Admin: 01/05/20 05:14 Dose: 30 ml Documented by: Metoprolol Succinate (Toprol Xl (Beta Tiesha)) 50 mg PO DAILY [facility] Last Admin: 01/05/20 08:24 Dose: 50 mg Documented by: Metronidazole (Flagyl) 500 mg PO Q12 [facility] Last Admin: 01/05/20 09:30 Dose: 500 mg Documented by: Mirtazapine (Remeron) 15 mg PO QHS [facility] Last Admin: 01/04/20 20:03 Dose: 15 mg Documented by: Nitroglycerin (Nitrostat) 0.4 mg SUBLINGUAL Q5M PRN PRN Reason: CARDIAC/CHEST PAIN Nutritional Formula (Lactose Free) (Glucerna Shake) 120 ml PO 4X/DAY [facility] Last Admin: 01/05/20 09:27 Dose: 120 ml Documented by: Ondansetron HCl (Zofran Odt) 4 mg PO Q8H PRN PRN PRN Reason: NAUSEA Last Admin: 01/01/20 07:53 Dose: 4 mg Documented by: Pantoprazole Sodium (Protonix) 40 mg PO DAILY [facility] Last Admin: 01/05/20 09:30 Dose: 40 mg Documented by: Senna/Docusate Sodium (Senokot-S, Sharron-Colace) 2 tablet PO BID [facility] Last Admin: 03/24/20 09:27 Dose: 2 tablet Documented by: Sodium Chloride () 5 - 15 ml IV UD PRN PRN Reason: SALINE FLUSH Last Admin: 01/05/20 09:49 Dose: 10 ml Documented by: Spironolactone (Aldactone) 12.5 mg PO DAILY [facility] Last Admin: 01/05/20 09:30 Dose: 12.5 mg Documented by: Warfarin Sodium (Coumadin (Pbkc)) 1 mg PO DAILY@1700 [facility] Last Admin: 01/04/20 18:17 Dose: 1 mg Documented by: Home Medications: Medications to take at Discharge Allopurinol [Zyloprim] 100 mg PO DAILY 11/27/19 Aspirin 81 mg PO DAILY 11/27/19 Cholecalciferol (VIT D3) [Vitamin D3] 1,000 unit PO DAILY 11/27/19 Clopidogrel Bisulfate [Clopidogrel] 75 mg PO DAILY 11/27/19 Fenofibrate,Micronized [Fenofibrate] 200 mg PO DAILY 11/27/19 Folic Acid 2 mg PO DAILY 11/27/19 Levothyroxine [Synthroid] 75 mcg PO DAILY 11/27/19 Lisinopril [Zestril] 2.5 mg PO DAILY 11/27/19 Nitroglycerin 0.4 mg SL Q5M MDD 3 11/27/19 Pantoprazole Sodium [Protonix] 40 mg PO DAILY 11/27/19 Rosuvastatin Calcium [Crestor] 20 mg PO DAILY 11/27/19 Acetaminophen [Tylenol Tablet] 650 mg PO Q6H PRN PRN tab 12/05/19 Gabapentin [Neurontin] 300 mg PO TIDCM 12/05/19 Gabapentin [Neurontin] 100 mg PO TID 12/24/19 Metoprolol Succinate [Toprol Xl] 50 mg PO DAILY 12/24/19 Spironolactone [Aldactone] 0.5 tab PO DAILY 12/24/19 Amiodarone HCl [Cordarone] 200 mg PO DAILY #0 01/05/20 Bisacodyl [Dulcolax] 10 mg RECTAL .PRN X 1 PRN suppos. 01/05/20 Calcium Carbonate [Tums] 500 mg PO DAILYCM tab 01/05/20 Dronabinol [Marinol] 2.5 mg PO BIDAC cap 01/05/20 Furosemide [Lasix] 40 mg PO QODAY tab 01/05/20 Gabapentin [Neurontin] 100 mg PO TIDCM cap 01/05/20 Gabapentin [Neurontin] 300 mg PO TIDCM cap 01/05/20 Glimepiride [Amaryl] 4 mg PO DAILY@0800 tab 01/05/20 Glucerna Shake 120 ml PO 4X/DAY liquid 01/05/20 Insulin Glargine [Lantus SoloStar Pen] 6 units SUBCUT QHS pen 01/05/20 Insulin Lispro [Humalog KwikPen] See Protocol SUBCUT TIDAC insuln.pen 01/05/20 Mirtazapine [Remeron] 15 mg PO QHS tab 01/05/20 Ondansetron [Zofran Odt] 4 mg PO Q8H PRN PRN tab 01/05/20 Senna/Docusate Sodium [Senokot-S] 2 tab PO BID tab 01/05/20 Warfarin [Coumadin] 1 mg PO DAILY@1700 tab 01/05/20 Primary Care Physician: Angel Lang MD [Primary Care Provider] - Please follow up with your Primary Care Physician in: following DC from TCU Please Follow Up With: Juan Manuel Wilkinson MD When: following DC form TCU Disposition: Longterm facility - Transitional care unit Minutes spent on discharge:: 45 Patient Condition:: Stable - improving Medical Necessity - Tobacco Use Smoking Status: Never smoker Tobacco Use: Non-smoker Meaningful Use Info Meaningful Use Diagnoses (Choose all that apply): None applicable Inpatient E&M: 65136 Disch Hosp
--- NOTE | 2020-01-05 15:16 | NURSING ---
PICC line right upper arm dc'd per dr Ortgea. 43 Cm measured. Patient tolerated well with no bleeding.
--- NOTE | 2020-01-05 15:19 | NURSING ---
TCU nurse given report and patient discharged.
== END 2020-01-05 15:15 | disposition skilled nursing facility (03) | DRG 949 ==
PROVIDERS: Family Medicine; Admitting Provider Internal Medicine; PCP Family Medicine; Referring Provider Internal Medicine; Visit Provider Internal Medicine
DX: Z48.812 Encounter for surgical aftercare following surgery on the circulatory system (principal); E43 Unspecified severe protein-calorie malnutrition; I13.0 Hypertensive heart and chronic kidney disease with heart failure and stage 1 through stage 4 chronic kidney disease, or unspecified chronic kidney disease; I48.20 Chronic atrial fibrillation, unspecified; I50.22 Chronic systolic (congestive) heart failure; I47.2 Ventricular tachycardia; N18.3 Chronic kidney disease, stage 3 (moderate); E11.22 Type 2 diabetes mellitus with diabetic chronic kidney disease; I25.10 Atherosclerotic heart disease of native coronary artery without angina pectoris; I25.5 Ischemic cardiomyopathy; I25.2 Old myocardial infarction; I48.0 Paroxysmal atrial fibrillation; E78.5 Hyperlipidemia, unspecified; E11.42 Type 2 diabetes mellitus with diabetic polyneuropathy; M10.9 Gout, unspecified; G47.33 Obstructive sleep apnea (adult) (pediatric); E03.9 Hypothyroidism, unspecified; Z68.28 Body mass index [BMI] 28.0-28.9, adult; Z95.810 Presence of automatic (implantable) cardiac defibrillator; Z95.5 Presence of coronary angioplasty implant and graft; Z95.1 Presence of aortocoronary bypass graft; Z86.718 Personal history of other venous thrombosis and embolism; Z79.01 Long term (current) use of anticoagulants; F32.9 Major depressive disorder, single episode, unspecified
CPT/HCPCS: 36415; 71046; 80048; 80053; 82962; 83735; 85025; 85027; 85610; 97110; 97116; 97162; 97166; 97530; 97535; 97802; 97803; J7040; J7050; A4216

== ENCOUNTER 2020-01-05 15:22 | Inpatient (IN) | payer MEDICARE, BC, SELFPAY ==
[2020-01-05 15:29] VITALS: BP 99/63; PULSE 70; RESP 14; TEMP 36.1; O2SAT 96; BMI 27.3
[2020-01-05 15:41] VITALS: BMI 27.3
[2020-01-05 16:30] LABS: Bedside Glucose 115 mg/dL (70-110)
[2020-01-05] MEDS: Glucerna Shake 120 ML LIQUID PO ×2 (17:42→21:02)
[2020-01-05] MEDS: Gabapentin 100 MG Capsule PO (17:42)
[2020-01-05] MEDS: Gabapentin 300 MG Capsule PO (17:42)
[2020-01-05] MEDS: Senna/Docusate Sodium 1 Tablet 2 TABLET PO (17:42)
[2020-01-05 18:04] VITALS: PULSE 74; RESP 16
[2020-01-05] MEDS: Dronabinol 2.5 MG Capsule PO (18:29)
[2020-01-05] MEDS: Atorvastatin Calcium 40 MG Tablet PO (19:44)
[2020-01-05] MEDS: Mirtazapine 15 MG Tablet PO (19:44)
[2020-01-05] MEDS: Menthol/Lanolin/Calamine/Znox 113 GM Tube 1 APPLIC TOPICAL (19:53)
--- NOTE | 2020-01-05 19:54 | NURSING ---
gave pt wedding band to this evening while dropping off clothes.
--- NOTE | 2020-01-05 20:00 | HP.PCM_ITS ---
Problem List (1) Debility Status: Acute (2) Empyema, left Status: Acute (3) Chronic combined systolic and diastolic CHF (congestive heart failure) Status: Chronic (4) Appetite loss Status: Chronic (5) Gout Status: Chronic (6) Atrial fibrillation Status: Chronic (7) Coronary artery disease Status: Chronic (8) Vitamin D deficiency Status: Chronic (9) Hypertension Status: Chronic (10) Hypothyroidism Status: Chronic (11) GERD (gastroesophageal reflux disease) Status: Chronic (12) Diabetic polyneuropathy Status: Chronic (13) Diabetes mellitus Status: Chronic (14) Obstructive sleep apnea Status: Chronic (15) HLD (hyperlipidemia) Status: Chronic Qualifiers: History of Present Illness Date of Admission: 01/05/20 Chief Complaint: Here for rehabilitation, strengthening, prior to discharge home with . The patient is a 79 year old Male with complex past medical history with followin12/01/2019 He presented to [facility] Emergency Department with shortness of breath. 12/06/2019 Admit to Inpatient Rehabilitation Unit for debility secondary to acute on chronic combined systolic diastolic congestive heart failure. 12/11/2019 Transfer to [facility] for left empyema for cardiothoracic surgery consultation. 12/24/2019 Admit to Inpatient Rehabilitation Unit for Left upper lobe, Left lower lobe collapse. Persistent left empyema despite chest tube, lytic agents, on intravenous antibiotics via PICC line. Cardiothoracic surgery recommended non surgical treatment of left empyema/effusion due to high risk of surgery. Marinol added for appetite stimulation. Mirtazapine added for appetite stimulation with good effect, appetite now good. Finished with IV antibiotics. 01/05/2020 Admit to TCU with debility, here for rehabilitation, strengthening, prior to discharge home with . Past Medical History Past Medical History (Chronic Problems): Chronic Problems (Last Reviewed 12/28/19 @ 14:[address] Alicja Ortega DO) Heart failure (Chronic) systolic with EF of 35% and diastolic dysfunction Loculated pleural effusion (Chronic) left side with collapse of the LLL...did not expand with thoracostomy tube, even with lytic agent. Atrial flutter (Chronic) Chronic combined systolic and diastolic CHF (congestive heart failure) (Chronic) Appetite loss (Chronic) Gout (Chronic) Atrial fibrillation (Chronic) Coronary artery disease (Chronic) Vitamin D deficiency (Chronic) Hypertension (Chronic) Hypothyroidism (Chronic) GERD (gastroesophageal reflux disease) (Chronic) Diabetic polyneuropathy (Chronic) Diabetes mellitus (Chronic) Obstructive sleep apnea (Chronic) Non-ST elevation (NSTEMI) myocardial infarction (Chronic) elevated troponin to 0.192 on 11/27/19 - indeterminate, had just recently had a FIRER BOILER to the RCA at [facility] in early november Presence of stent of bypass graft (Chronic ~11/23/19) PCI/FEDERICO to the SVG to RCA @[facility] 11/23/19 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 (Chronic ~04/20/02) March 2012 Paroxysmal atrial fibrillation (Chronic) History of myocardial infarction (Chronic) GA in 1981 and 1983 Type 2 diabetes mellitus (Chronic) Atrioventricular block (Chronic) has a PM/AICD Paroxysmal ventricular tachycardia (Chronic) monomorphic - has AICD and is now on Amiodarone Premature ventricular contraction (Chronic) Aortocoronary bypass status (Chronic ~06/18/96) CABG x3 - KO to diag, SVG to RCA and SVG to RCA 06/18/1996 Ischemic cardiomyopathy (Chronic) 35% EF Atherosclerotic heart disease of [place] coronary artery without angina pectoris (Chronic) CABG x3 - KO to diag, SVG to RCA and SVG to RCA 06/18/1996 long-term (current) use of anticoagulants (Chronic) Warfarin CKD (chronic kidney disease), stage III (Chronic) HLD (hyperlipidemia) (Chronic) Medical History: Medical History (Last Reviewed 12/28/19 @ 14:[address] Alicja Ortega, DO) Non-ST elevation (NSTEMI) myocardial infarction (Chronic) I21.4 elevated troponin to 0.192 on 11/27/19 - indeterminate, had just recently had a FIRER BOILER to the RCA at [facility] in early november Presence of stent of bypass graft (Chronic) Onset Date: ~11/23/19 Z95.828 PCI/FEDERICO to the SVG to RCA @[facility] 11/23/19 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 (Chronic) Onset Date: ~04/20/02 Z95.810 March 2012 Paroxysmal atrial fibrillation (Chronic) I48.0 History of myocardial infarction (Chronic) I25.2 GA in 1981 and 1983 Type 2 diabetes mellitus (Chronic) E11.9 Atrioventricular block (Chronic) I44.30 has a PM/AICD Paroxysmal ventricular tachycardia (Chronic) I47.2 monomorphic - has AICD and is now on Amiodarone Premature ventricular contraction (Chronic) I49.3 Ischemic cardiomyopathy (Chronic) I25.5 35% EF Atherosclerotic heart disease of [place] coronary artery without angina pectoris (Chronic) I25.10 CABG x3 - KO to diag, SVG to RCA and SVG to RCA 06/18/1996 manager terminal (current) use of anticoagulants (Chronic) Z79.01 Warfarin CKD (chronic kidney disease), stage III (Chronic) HLD (hyperlipidemia) (Chronic) E78.5 Hypothyroidism E03.9 YUSUF (obstructive sleep apnea) G47.33 Gout M10.9 Neuropathy G62.9 History of DVT (deep vein thrombosis) (Resolved) Z86.718 Upper Extremity History of cardiac pacemaker Onset Date: ~07/14/01 Z95.0 Allergies Iodine and Iodide Containing Produc Adverse Reaction (Severe, Verified 12/01/19 17:31) Diarrhea metformin Adverse Reaction (Verified 12/01/19 17:31) Upset Stomach niacin Adverse Reaction (Verified 12/01/19 17:31) Other Home Medications: Ambulatory Orders Medication Instructions Recorded Allopurinol [Zyloprim] 100 mg PO DAILY 11/27/19 Aspirin 81 mg PO DAILY 11/27/19 Cholecalciferol (VIT D3) [Vitamin 1,000 unit PO DAILY 11/27/19 D3] Clopidogrel Bisulfate [Clopidogrel] 75 mg PO DAILY 11/27/19 Fenofibrate,Micronized 200 mg PO DAILY 11/27/19 [Fenofibrate] Folic Acid 2 mg PO DAILY 11/27/19 Levothyroxine [Synthroid] 75 mcg PO DAILY 11/27/19 Lisinopril [Zestril] 2.5 mg PO DAILY 11/27/19 Nitroglycerin 0.4 mg SL Q5M MDD 3 11/27/19 Pantoprazole Sodium [Protonix] 40 mg PO DAILY 11/27/19 Rosuvastatin Calcium [Crestor] 20 mg PO DAILY 11/27/19 Acetaminophen [Tylenol Tablet] 650 mg PO Q6H PRN PRN tab 12/05/19 Gabapentin [Neurontin] 300 mg PO TIDCM 12/05/19 Gabapentin [Neurontin] 100 mg PO TID 12/24/19 Metoprolol Succinate [Toprol Xl] 50 mg PO DAILY 12/24/19 Spironolactone [Aldactone] 0.5 tab PO DAILY 12/24/19 Amiodarone HCl [Cordarone] 200 mg PO DAILY #0 01/05/20 Bisacodyl [Dulcolax] 10 mg RECTAL DAILY PRN PRN 01/05/20 Calcium Carbonate [Tums] 500 mg PO DAILYCM 01/05/20 Dronabinol [Marinol] 2.5 mg PO BIDAC 01/05/20 Furosemide [Lasix] 40 mg PO QODAY 01/05/20 Glimepiride [Amaryl] 4 mg PO DAILY@0800 01/05/20 Insulin Glargine [Lantus SoloStar 6 units SUBCUT QHS 01/05/20 Pen] Insulin Lispro [Humalog KwikPen] See Protocol SUBCUT TIDAC 01/05/20 Mirtazapine [Remeron] 15 mg PO QHS 01/05/20 Ondansetron [Zofran Odt] 4 mg PO Q8H PRN PRN tab 01/05/20 Senna/Docusate Sodium [Senokot-S] 2 tab PO BID 01/05/20 Warfarin [Coumadin] 1 mg PO DAILY@1700 01/05/20 Surgical History: Surgical History (Last Reviewed 12/28/19 @ 14:[address] Alicja Ortega, DO) Aortocoronary bypass status (Chronic) Onset Date: ~06/18/96 Z95.1 CABG x3 - KO to diag, SVG to RCA and SVG to RCA 06/18/1996 History of cardiac radiofrequency ablation Onset Date: ~06/12/07 Z98.890 for atrial flutter @ [facility] 06/12/07 History of implantable cardioverter-defibrillator (ICD) placement Onset Date: ~07/14/01 Z95.810 History of tonsillectomy Z90.89 Surgical History: coronary bypass surgery - x 3., tonsillectomy, - - Pacemaker/AICD, tonsillectomy, PCI at [facility] in nov 2019 with FEDERICO to the SVG to the RCA, RF ablation Psychiatric History: No pertinent psych hx Lives: Spouse/ Significant Other Smoking Status: Never smoker Tobacco Use: Non-smoker Alcohol: None Drugs: None - *Family History Maternal Family History: Family History (Last Reviewed 12/28/19 @ 14:[address] Alicja Ortega DO) Father Myocardial infarction History Items: High Cholesterol, Heart Disease, Hypertension Paternal Family History: Family History (Last Reviewed 12/28/19 @ 14:[address] Alicja Ortega DO) Father Myocardial infarction History Items: High Cholesterol, Heart Disease, Hypertension Review of Systems Constitutional: Reports: Weakness. Denies: Chills, Fever, Weight Change HEENT: Denies: Head Aches, Sinus Congestion, Sinus Drainage Cardiovascular: Denies: Chest Pain, Palpitations Respiratory: Denies: Cough, Shortness of breath at rest, Sputum production Gastrointestinal: Denies: Abdominal Pain, Nausea, Vomiting Genitourinary: Denies: Dysuria Musculoskeletal: Denies: Joint Pain, Joint Tenderness Skin: Denies: Rash, Wounds Neurological: Denies: Numbness, Tingling, Focal weakness Psychiatric: Denies: Anxiety, Depression, Homicidal Ideations, Suicidal Ideations Hematologic/ Lymphatic: Denies: Easy Bruising, Easy Bleeding VTE Information - Inpt Only VTE Present on Admission: No VTE Mechan Device Prophylaxis: Knee High CASEY Hose VTE Pharm Prophylaxis ordered?: No Reason prophylaxis not ordered:: Treatment Not Indicated Patient Problems: Active and Suspected Problems (Last Reviewed 12/28/19 @ 14:[address] Alicja Ortega DO) Debility (Acute) Empyema, left (Acute) - Physical Exam Vitals/I&O's: Vital Signs Temp Pulse Resp BP Pulse Ox 97.0 F L 74 16 99/63 96 01/05/20 15:29 01/05/20 18:04 01/05/20 18:04 01/05/20 15:29 01/05/20 15:29 Oxygen Delivery Method Room Air Weight: 79.095 kg Body Mass Index (BMI) 27.3 Finger Stick Blood Glucose 190 General: Alert, Oriented x3, Cooperative HEENT: Atraumatic, PERRLA, EOMI, Normocephalic Neck: Supple, No JVD, Negative Carotid Bruits Lungs: Normal air movement, - - Crackles left base. Cardiovascular: Regular rate, No murmurs Abdomen: Bowel Sounds Present, Soft, Non Tender Extremities: No edema, Capillary Refill Less than 3 Seconds Skin: No rashes, No breakdown Musculoskeletal: No Tenderness to Palpation of Joints or Extremities Neurological: Cranial nerves II-XII grossly intact Psych/Mental Status: Normal Affect, Appropriate Laboratory Results 01/05/20 16:25: POC Glucose 115 H Current Medications Acetaminophen (Tylenol) 650 mg PO Q6H PRN PRN PRN Reason: Pain Score 1-10/Temp > 100.7 F Allopurin[facility]op[facility]) [facility] Amiodarone HCl (Cordarone) 200 [facility]ILY[facility] Aspirin (Aspirin, Baby) 81 mg [facility]ILY[facility] Atorvastatin Calcium (Lipitor) 40 mg PO QHS [facility] Last Admin: 01/05/20 19:44 Dose: 40 mg Documented by: Bisacodyl (Dulcolax) 10 mg RECTAL DAILY PRN PRN PRN Reason: Constipation Calamine/Phenol (Calmoseptine Ointment) 1 applic TOPICAL BID@0600,2200 [facility]; Protocol Last Admin: 01/05/20 19:53 Dose: 1 applicatio Documented by: Calcium Carbonate (Tums) 500 [facility]ILYPER[facility] Cholecalciferol (Vitamin D (25mcg)) 1,000 unit PO [facility]ILY[facility] Clopidogrel Bisulfate (Plavix) 75 mg PO DAILY [facility] Dronabinol (Marinol) 2.5 mg PO BIDAC [facility] Last Admin: 01/05/20 18:29 Dose: 2.5 mg Documented by: Fenofibrate (Tricor) 145 [facility]ILY[facility] Folic Acid (Folic Acid) 2 mg [facility]ILY[facility] Furosemide (Lasix) 40 mg PO QODAY@0600 [facility] Gabapentin (Neurontin) 100 mg PO TIDCM [facility] Last Admin: 01/05/20 17:42 Dose: 100 mg Documented by: Gabapentin (Neurontin) 300 mg PO TIDCM [facility] Last Admin: 01/05/20 17:42 Dose: 300 mg Documented by: Glimepiride (Amaryl) 4 mg PO DAILY@0800 [facility] Insulin Glargine (Lantus (Bkc)) 6 units SC QHS [facility] Insulin Human Lispro (Humalog Kwikpen (Bkc)) 0 unit SC TIDAC [facility]; Protocol Last Admin: 01/05/20 17:34 Dose: Not Given Documented by: Levothyroxine Sodium (Synthroid) 75 mcg PO DAILY [facility] Lisinopril (Zestril) 2.5 mg PO DAILY [facility] Metoprolol Succinate (Toprol Xl (Beta Tiesha)) 50 mg PO DAILY [facility] Mirtazapine (Remeron) 15 mg PO QHS [facility] Last Admin: 01/05/20 19:44 Dose: 15 mg Documented by: Nitroglycerin (Nitrostat) 0.4 mg SUBLINGUAL Q5M PRN PRN Reason: .CHEST PAIN Nutritional Formula (Lactose Free) (Glucerna Shake) 120 ml PO 4X/DAY [facility] Last Admin: 01/05/20 17:42 Dose: 120 ml Documented by: Ondansetron HCl (Zofran Odt) 4 mg PO Q8H PRN PRN PRN Reason: NAUSEA Pantoprazole Sodium (Protonix) 40 mg PO DAILY [facility] Senna/Docusate Sodium (Senokot-S, Sharron-Colace) 2 tablet PO BID [facility] Last Admin: 01/05/20 17:42 Dose: 2 tablet Documented by: Spironolactone (Aldactone) 12.5 mg PO DAILY [facility] Tuberculin PPD (Tubersol, Aplisol, Ppd) 5 tu ID X1 ONE Stop: 01/06/20 10:01 Tuberculin PPD (Tubersol, Aplisol, Ppd) 5 tu ID X1 ONE Stop: 01/13/20 10:01 Warfarin Sodium (Coumadin (Pbkc)) 1 mg PO DAILY@1700 [facility] Last Admin: 01/05/20 17:42 Dose: 1 mg Documented by: Assessment/Plan All Active Problems (Last Reviewed 12/28/19 @ 14:[address] Alicja Ortega, DO) Acute exacerbation of CHF (congestive heart failure) (Resolved) Lactic acidosis (Resolved) Physical debility (Acute) Supratherapeutic INR (Resolved) Macrocytic anemia (Acute) Status post thoracostomy tube placement (Acute) History of PTCA (Acute) Inanition (Acute) Severe malnutrition (Acute) Hyponatremia (Resolved) Debility (Acute) Empyema, left (Acute) FILIPE (acute kidney injury) (Resolved) Acute respiratory failure with hypoxia (Resolved) Hemoptysis (Resolved) History of DVT (deep vein thrombosis) (Resolved) Pneumonia (Resolved) Severe sepsis (Resolved) 79 year old male with below past medical history hospitalized left empyema requiring chest tube, lytic agents, intravenous antibiotics, complicated by loss of appetite, admitted to Inpatient Rehabilitation Unit, now admitting to TCU with debility, here for rehabilitation, strengthening, prior to discharge home with . * Debility - PT/OT. * Cognition - ST. * Pain - Tylenol 1000MG Q6H PRN pain (1-10). * Bowel - Senna/colace 2 tablets BID, Dulcolax 10MG [place] daily PRN. * Adult immunization - Administer Prevnar 13, Pneumovax 23, Fluzone as appropriate. * DVT prophylaxis - Not necessary, already on warfarin. * Gout - Allopurinol 100MG daily. * Atrial Fibrillation - Metoprolol succinate 50MG daily, Amiodarone 200MG daily, Warfarin 1MG daily, follow INR. * Coronary Artery Disease status post CABG status post stent - Metoprolol succinate 50MG daily, Plavix 75MG daily, stop Aspirin 81MG as he is already on warfarin, and combination of aspirin/warfarin increases risk of bleeding without further reducing CV risk. NTG 0.4MG Q5M PRN chest pain. * Hyperlipidemia - Atorvastatin 40MG QHS, stop Fenofibrate (no evidence helpful in decreasing CV risk), consider Vascepa 2GM twice daily as outpatient to further decrease CV risk. * Calcium deficiency - Calcium 500MG daily. * Vitamin D deficiency - D3 1000IU daily. * Appetite loss - Marinol 2.5MG BIDAC, Mirtazapine 15MG QHS, Glucerna 120ML 4x/day. * Chronic systolic congestive heart failure - Metoprolol succinate 50MG daily, Lasix 40MG every other day, stop Lisinopril, stop Aldactone, start Entresto 24/26MG BID x 2weeks; 49/51MG BID x 2 weeks; then 97/103MG BID. * Diabetic polyneuropathy - Gabapentin 400MG TID. * Diabetes Mellitus II - Glimepiride 4MG daily, Lantus 6 units QHS. * Hypothyroidism - Levothyroxine 75MCG daily. * Skin irritation - Calmoseptine BID. * Nausea - Zofran 4MG Q8H PRN. * GERD - Pantoprazole 40MG daily.
[2020-01-05 21:36] LABS: Bedside Glucose 158 mg/dL (70-110)
[2020-01-06 05:44] LABS: Absolute Lymphocyte Count 0.77 X10^3/uL (0.83-4.51); Absolute Neutrophil Count 3.6 X10^3/uL (2.0-7.7); Basophil# 0.08 X10^3/uL; Basophil% 1.4 % (0-1); Eosinophil# 0.27 X10^3/uL; Eosinophils% 4.8 % (0-5); Hematocrit 39.8 % (40-54); Hemoglobin 12.7 g/dL (13.0-16.5); Lymphocyte # 0.77 X10^3/ul (4.0); Lymphocyte % 13.8 % (19-41); Mean Corp Hgb Conc 31.9 g/dL (32-36); Mean Corpuscular Hgb 29.7 pg (27.0-32.0); Mean Corpuscular Volume 93.2 fL (80-94); Mean Platelet Vol. 11.1 fl (6.2-12.0); Monocyte# 0.78 X10^3/uL; NRBC Flagged by Analyzer 0 % (0-5); Neutrophil # 3.64 X10^3/uL (2.7-7.7); Neutrophil % 65.1 % (47-70); Platelet Count 306 K/mm3 (150-450); RBC Distribution Width CV 16.5 % (11.6-14.6); RBC Distribution Width SD 55.8 fl (35.1-43.9); Red Blood Count 4.27 M/mm3 (4.6-6.2); White Blood Count 5.6 K/mm3 (4.4-11.0)
[2020-01-06 06:08] LABS: Anion Gap 6 (5-15); BUN 21 mg/dL (7-18); BUN/Creat Ratio 18.6 RATIO (10-20); Calcium,Total 9.2 mg/dL (8.5-10.1); Chloride 101 mmol/L (98-107); Creatinine, Serum 1.13 mg/dL (0.70-1.30); EST Glomerular Filtration Rate 66 mL/min (>60); Est Glom Filt Rate - Afr Amer 80 mL/min (>60); Estimated Creatinine Clearance 47.93 ml/min; Glucose 84 mg/dL (74-106); Potassium 4.4 mmol/L (3.5-5.1); Sodium Level 136 mmol/L (136-145)
[2020-01-06 06:21] LABS: Bedside Glucose 88 mg/dL (70-110)
[2020-01-06] MEDS: SACUBITRIL/VALSARTAN 24/26 MG TABLET 1 EACH PO ×2 (06:32→17:37)
[2020-01-06] MEDS: Senna/Docusate Sodium 1 Tablet 2 TABLET PO ×2 (06:32→17:37)
[2020-01-06 06:33] VITALS: BP 122/76; PULSE 70
[2020-01-06] MEDS: Pantoprazole Sodium 40 MG Tablet PO (06:33)
[2020-01-06] MEDS: Furosemide 40 MG Tablet PO (06:33)
[2020-01-06] MEDS: Clopidogrel Bisulfate 75 MG Tablet PO (06:33)
[2020-01-06] MEDS: Metoprolol(XL)Succ 50 MG Tablet PO (06:33)
[2020-01-06] MEDS: Levothyroxine 75 MCG Tablet PO (06:33)
[2020-01-06] MEDS: Menthol/Lanolin/Calamine/Znox 113 GM Tube 1 APPLIC TOPICAL ×2 (06:34→21:29)
[2020-01-06] MEDS: Glucerna Shake 120 ML LIQUID PO ×4 (06:35→21:24)
[2020-01-06] MEDS: Dronabinol 2.5 MG Capsule PO ×2 (07:55→16:17)
[2020-01-06] MEDS: Calcium Carbonate 500 MG Tablet PO (07:58)
[2020-01-06] MEDS: Folic Acid 1 MG Tablet 2 MG PO (07:58)
[2020-01-06] MEDS: Glimepiride 4 MG Tablet PO (07:58)
[2020-01-06] MEDS: Gabapentin 300 MG Capsule PO ×3 (07:58→17:37)
[2020-01-06] MEDS: Amiodarone 200 MG Tablet PO (07:59)
[2020-01-06] MEDS: Allopurinol 100 MG Tablet PO (07:59)
[2020-01-06] MEDS: Gabapentin 100 MG Capsule PO ×3 (07:59→17:36)
[2020-01-06] MEDS: Tuberculin,Purif.prot.deriv. 50 TU/ML Vial 5 ML ID (08:59)
[2020-01-06 09:00] VITALS: PULSE 69; RESP 16; O2SAT 96
[2020-01-06 11:00] LABS: Bedside Glucose 269 mg/dL (70-110)
[2020-01-06 14:02] VITALS: BP 117/61; PULSE 70; RESP 17; TEMP 36.6; O2SAT 93
--- NOTE | 2020-01-06 14:08 | PCM.PN.RX ---
<Niharika Calle - Last Filed: 01/06/20 14:08> Progress Note - Pharmacy Subjective: TCU Admission Objective: Allergies Iodine and Iodide Containing Produc Adverse Reaction (Severe, Verified 12/01/19 17:31) Diarrhea metformin Adverse Reaction (Verified 12/01/19 17:31) Upset Stomach niacin Adverse Reaction (Verified 12/01/19 17:31) Other Current Medications Generic Name Dose Route Start Last Admin Trade Name Freq PRN Reason Stop Dose Admin Acetaminophen 1,000 mg 01/05/20 20:33 Tylenol PO Q6H PRN PRN Pain Score 1-10/10 Allopurinol 100 mg 01/06/20 08:00 01/06/20 07:59 Zyloprim PO 100 mg DAILYCM [facility] Administration Amiodarone HCl 200 mg 01/06/20 08:00 01/06/20 07:59 Cordarone PO 200 mg DAILYCM [facility] Administration Atorvastatin Calcium 40 mg 01/05/20 22:00 01/05/20 19:44 Lipitor PO 40 mg QHS [facility] Administration Bisacodyl 10 mg 01/05/20 16:11 Dulcolax RECTAL DAILY PRN PRN Constipation Calamine/Phenol 1 applic 01/05/20 22:00 01/06/20 06:34 Calmoseptine Ointment TOPICAL 1 applicatio BID@0600,2200 [facility] Administration Protocol Calcium Carbonate 500 mg 01/06/20 08:00 01/06/20 07:58 Tums PO 500 mg DAILYCM [facility] Administration Cholecalciferol 1,000 unit 01/06/20 08:00 01/06/20 07:59 Vitamin D (25mcg) PO 1,000 unit DAILYCM [facility] Administration Clopidogrel Bisulfate 75 mg 01/06/20 06:00 01/06/20 06:33 Plavix PO 75 mg DAILY YMOAIRA Administration Dronabinol 2.5 mg 01/05/20 16:30 01/06/20 07:55 Marinol PO 2.5 mg BIDAC YOMAIRA Administration Folic Acid 2 mg 01/06/20 08:00 01/06/20 07:58 Folic Acid PO 2 mg DAILYCM [facility] Administration Furosemide 40 mg 01/06/20 06:00 01/06/20 06:33 Lasix PO 40 mg QODAY@0600 [facility] Administration Gabapentin 100 mg 01/05/20 17:45 01/06/20 11:46 Neurontin PO 100 mg TIDCM Y[facility]A Administration Gabapentin 300 mg 01/05/20 17:45 01/06/20 11:46 Neurontin PO 300 mg TIDCM [facility] Administration Glimepiride 4 mg 01/06/20 08:00 01/06/20 07:58 Amaryl PO 4 mg DAILY@0800 Y[facility]A Administration Insulin Glargine 6 units 01/05/20 22:00 01/05/20 21:03 Lantus (Bkc) SC 6 u QHS [facility] Administration Levothyroxine Sodium 75 mcg 01/06/20 06:00 01/06/20 06:33 Synthroid PO 75 mcg DAILY [facility] Administration Metoprolol Succinate 50 mg 01/06/20 06:00 01/06/20 06:33 Toprol Xl (Beta Tiesha) PO 50 mg DAILY [facility] Administration Mirtazapine 15 mg 01/05/20 22:00 01/05/20 19:44 Remeron PO 15 mg QHS [facility] Administration Nitroglycerin 0.4 mg 01/05/20 16:55 Nitrostat SUBLINGUAL Q5M PRN .CHEST PAIN Nutritional Formula (Lactose Free) 120 ml 01/05/20 17:00 01/06/20 11:40 Glucerna Shake PO 120 ml 4X/DAY [facility] Administration Ondansetron HCl 4 mg 01/05/20 16:11 Zofran Odt PO Q8H PRN PRN NAUSEA Pantoprazole Sodium 40 mg 01/06/20 06:00 01/06/20 06:33 Protonix PO 40 mg DAILY [facility] Administration Sacubitril/Valsartan 1 each 01/06/20 06:00 01/06/20 06:32 Entresto 24 Mg-26 Mg Tablet PO 01/20/20 06:01 1 each BID [facility] Administration Sacubitril/Valsartan 1 each 01/21/20 06:00 Entresto 49 Mg-51 Mg Tablet PO 02/04/20 06:01 BID [facility] Sacubitril/Valsartan 1 each 02/05/20 06:00 Entresto 97 Mg-103 Mg Tablet PO BID [facility] Senna/Docusate Sodium 2 tablet 01/05/20 18:00 01/06/20 06:32 Senokot-S, Sharron-Colace PO 2 tablet BID [facility] Administration Tuberculin PPD 5 tu 01/13/20 10:00 Tubersol, Aplisol, Ppd ID 01/13/20 10:01 X1 ONE Warfarin Sodium 1 mg 01/05/20 17:00 01/05/20 17:42 Coumadin (Pbkc) PO 1 mg DAILY@1700 [facility] Administration Problem List (Last Reviewed 12/28/19 @ 14:[address] Alicja Ortega, DO) Debility (Acute) Empyema, left (Acute) Chronic combined systolic and diastolic CHF (congestive heart failure) (Chronic) Appetite loss (Chronic) Gout (Chronic) Atrial fibrillation (Chronic) Coronary artery disease (Chronic) Vitamin D deficiency (Chronic) Hypertension (Chronic) Hypothyroidism (Chronic) GERD (gastroesophageal reflux disease) (Chronic) Diabetic polyneuropathy (Chronic) Diabetes mellitus (Chronic) Obstructive sleep apnea (Chronic) Vital Signs Temp Pulse Resp BP Pulse Ox 97.8 F 70 17 117/61 93 01/06/20 14:02 01/06/20 14:02 01/06/20 14:02 01/06/20 14:02 01/06/20 14:02 Oxygen Delivery Method Room Air Weight: 79.095 kg Body Mass Index (BMI) 27.3 Finger Stick Blood Glucose 190 Sodium 136 mmol/L (136-145) 01/06/20 05:25 Potassium 4.4 mmol/L (3.5-5.1) 01/06/20 05:25 Chloride 101 mmol/L (98-107) 01/06/20 05:25 Carbon Dioxide 29.0 mmol/L (21.0-32.0) 01/06/20 05:25 Anion Gap 6 (5-15) 01/06/20 05:25 BUN 21 mg/dL (7-18) H 01/06/20 05:25 Creatinine 1.13 mg/dL (0.70-1.30) 01/06/20 05:25 Est GFR (MDRD) Af Amer 80 mL/min (>60) 01/06/20 05:25 Est GFR (MDRD) Non-Af 66 mL/min (>60) 01/06/20 05:25 BUN/Creatinine Ratio 18.6 RATIO (10-20) 01/06/20 05:25 Glucose 84 mg/dL (74-106) 03/25/20 05:25 Assessment/Plan: 1. Pain: acetaminophen 1000mg PO Q6H PRN pain (-07/23). Please continue to monitor for pain and PRN usage. 2. CAD/atrial fibrillation/CHF: metoprolol succinate 50mg PO daily, clopidogrel 75mg PO daily, nitroglycerin 0.4mg SL Q5M PRN chest pain, amiodarone 200mg PO daily, warfarin 1mg PO daily@1700, furosemide 40mg PO QODAY, Entresto 24/26mg PO BID thru 01/20/20 (then Entresto 49/51mg PO BID 01/21/20-02/04/20, then Entresto 97/103 mg PO BID starting 02/05/20). Please continue to monitor HR, BP, S/S of bleeding, INR, electrolytes, renal function, QTc and chest pain. *3. Hyperlipidemia: atorvastatin 40mg PO QHS. Please consider ordering a lipid panel now and then annually as clinically appropriate. Last panel from October 2018. Thanks. Please continue to monitor for muscle pain. 4. Diabetic polyneuropathy: gabapentin 400mg PO TIDCM. Please continue to monitor for confusion and renal function. 5. Diabetes mellitus II: glimepiride 4mg PO daily and insulin glargine 6units SC QHS. Hemoglobin A1c UTD. Please continue to monitor blood glucose and for S/S of hypoglycemia. *6. Hypothyroidism: levothyroxine 75mcg PO daily. Please consider ordering a TSH now and then annually as clinically appropriate. Last panel from October 2018. Thanks. Please continue to monitor for S/S of hypo/hyperthyroidism. 7. Gout: allopurinol 100mg PO DAILYCM. Please continue to monitor renal function. 8. GERD: pantoprazole 40mg PO daily. Please continue to monitor. 9. Nausea: ondansetron 4mg PO Q8H PRN nausea. Please continue to monitor for nausea and PRN usage. *10. Vitamin deficiencies: calcium carbonate 500mg PO DAILYCM, cholecalciferol 1000units DAILYCM. Please consider ordering a vitamin D level now and then annually as clinically appropriate. Thanks. Please continue to monitor calcium levels. Psychotropic Medications: 1. Appetite loss: mirtazapine 15mg PO QHS and dronabinol 2.5mg PO BIDAC. Documented poor oral intake x 1 month. GDR not appropriate. Please continue to monitor for improved appetite. *Unnecessary Medications: folic acid 2mg PO DAILYCM. There is no documented indication for this medication. Please consider D/C if clinically appropriate. Bowel Regimen: senna/docusate 2T PO BID and bisacodyl 10mg [place] daily PRN constipation. Please continue to monitor for constipation and PRN usage. Date of Note:: 01/06/20 - Provider Comments Provider responsibility: Provider responsible to enter orders to implement recommendations <Canelo Colon Chi - Last Filed: 01/06/20 16:18> Progress Note - Pharmacy Subjective: [] Objective: Allergies Iodine and Iodide Containing Produc Adverse Reaction (Severe, Verified 12/01/19 17:31) Diarrhea metformin Adverse Reaction (Verified 12/01/19 17:31) Upset Stomach niacin Adverse Reaction (Verified 12/01/19 17:31) Other Current Medications Generic Name Dose Route Start Last Admin Trade Name Freq PRN Reason Stop Dose Admin Acetaminophen 1,000 mg 01/05/20 20:33 Tylenol PO Q6H PRN PRN Pain Score 1-10/10 Allopurinol 100 mg 01/06/20 08:00 01/06/20 07:59 Zyloprim PO 100 mg DAILYCM [facility] Administration Amiodarone HCl 200 mg 01/06/20 08:00 01/06/20 07:59 Cordarone PO 200 mg DAILYCM [facility] Administration Atorvastatin Calcium 40 mg 01/05/20 22:00 01/05/20 19:44 Lipitor PO 40 mg QHS [facility] Administration Bisacodyl 10 mg 01/05/20 16:11 Dulcolax RECTAL DAILY PRN PRN Constipation Calamine/Phenol 1 applic 01/05/20 22:00 01/06/20 06:34 Calmoseptine Ointment TOPICAL 1 applicatio BID@0600,2200 [facility] Administration Protocol Calcium Carbonate 500 mg 01/06/20 08:00 01/06/20 07:58 Tums PO 500 mg DAILYCM [facility] Administration Cholecalciferol 1,000 unit 01/06/20 08:00 01/06/20 07:59 Vitamin D (25mcg) PO 1,000 unit DAILYCM [facility] Administration Clopidogrel Bisulfate 75 mg 01/06/20 06:00 01/06/20 06:33 Plavix PO 75 mg DAILY [facility] Administration Dronabinol 2.5 mg 01/05/20 16:30 01/06/20 16:17 Marinol PO 2.5 mg BIDAC [facility] Administration Folic Acid 2 mg 01/06/20 08:00 01/06/20 07:58 Folic Acid PO 2 mg DAILYCM [facility] Administration Furosemide 40 mg 01/06/20 06:00 01/06/20 06:33 Lasix PO 40 mg QODAY@0600 [facility] Administration Gabapentin 100 mg 01/05/20 17:45 01/06/20 11:46 Neurontin PO 100 mg TIDCM [facility] Administration Gabapentin 300 mg 01/05/20 17:45 01/06/20 11:46 Neurontin PO 300 mg TIDCM [facility] Administration Glimepiride 4 mg 01/06/20 08:00 01/06/20 07:58 Amaryl PO 4 mg DAILY@0800 [facility] Administration Insulin Glargine 6 units 01/05/20 22:00 01/05/20 21:03 Lantus (Bkc) SC 6 u QHS [facility] Administration Levothyroxine Sodium 75 mcg 01/06/20 06:00 01/06/20 06:33 Synthroid PO 75 mcg DAILY [facility] Administration Metoprolol Succinate 50 mg 01/06/20 06:00 01/06/20 06:33 Toprol Xl (Beta Tiesha) PO 50 mg DAILY [facility] Administration Mirtazapine 15 mg 01/05/20 22:00 01/05/20 19:44 Remeron PO 15 mg QHS [facility] Administration Nitroglycerin 0.4 mg 01/05/20 16:55 Nitrostat SUBLINGUAL Q5M PRN .CHEST PAIN Nutritional Formula (Lactose Free) 120 ml 01/05/20 17:00 01/06/20 11:40 Glucerna Shake PO 120 ml 4X/DAY [facility] Administration Ondansetron HCl 4 mg 01/05/20 16:11 Zofran Odt PO Q8H PRN PRN NAUSEA Pantoprazole Sodium 40 mg 01/06/20 06:00 01/06/20 06:33 Protonix PO 40 mg DAILY [facility] Administration Sacubitril/Valsartan 1 each 01/06/20 06:00 01/06/20 06:32 Entresto 24 Mg-26 Mg Tablet PO 01/20/20 06:01 1 each BID [facility] Administration Sacubitril/Valsartan 1 each 01/21/20 06:00 Entresto 49 Mg-51 Mg Tablet PO 02/04/20 06:01 BID [facility] Sacubitril/Valsartan 1 each 02/05/20 06:00 Entresto 97 Mg-103 Mg Tablet PO BID [facility] Senna/Docusate Sodium 2 tablet 01/05/20 18:00 01/06/20 06:32 Senokot-S, Sharron-Colace PO 2 tablet BID [facility] Administration Tuberculin PPD 5 tu 01/13/20 10:00 Tubersol, Aplisol, Ppd ID 01/13/20 10:01 X1 ONE Warfarin Sodium 1 mg 01/05/20 17:00 01/05/20 17:42 Coumadin (Pbkc) PO 1 mg DAILY@1700 [facility] Administration Problem List (Last Reviewed 12/28/19 @ 14:[address] Alicja Ortega, DO) Debility (Acute) Empyema, left (Acute) Chronic combined systolic and diastolic CHF (congestive heart failure) (Chronic) Appetite loss (Chronic) Gout (Chronic) Atrial fibrillation (Chronic) Coronary artery disease (Chronic) Vitamin D deficiency (Chronic) Hypertension (Chronic) Hypothyroidism (Chronic) GERD (gastroesophageal reflux disease) (Chronic) Diabetic polyneuropathy (Chronic) Diabetes mellitus (Chronic) Obstructive sleep apnea (Chronic) Vital Signs Temp Pulse Resp BP Pulse Ox 97.8 F 70 17 117/61 93 01/06/20 14:02 01/06/20 14:02 01/06/20 14:02 01/06/20 14:02 01/06/20 14:02 Oxygen Delivery Method Room Air Weight: 79.095 kg Body Mass Index (BMI) 27.3 Finger Stick Blood Glucose 190 Sodium 136 mmol/L (136-145) 01/06/20 05:25 Potassium 4.4 mmol/L (3.5-5.1) 01/06/20 05:25 Chloride 101 mmol/L (98-107) 01/06/20 05:25 Carbon Dioxide 29.0 mmol/L (21.0-32.0) 01/06/20 05:25 Anion Gap 6 (5-15) 01/06/20 05:25 BUN 21 mg/dL (7-18) H 01/06/20 05:25 Creatinine 1.13 mg/dL (0.70-1.30) 01/06/20 05:25 Est GFR (MDRD) Af Amer 80 mL/min (>60) 01/06/20 05:25 Est GFR (MDRD) Non-Af 66 mL/min (>60) 01/06/20 05:25 BUN/Creatinine Ratio 18.6 RATIO (10-20) 01/06/20 05:25 Glucose 84 mg/dL (74-106) 01/06/20 05:25 Assessment/Plan: Psychotropic Medications: Unnecessary Medications: Bowel Regimen: - Provider Comments Provider responsibility: Provider responsible to enter orders to implement recommendations Provider Comments to Recommendations by Pharmacy: Agree
[2020-01-06 16:11] LABS: Bedside Glucose 132 mg/dL (70-110)
[2020-01-06 18:43] VITALS: O2SAT 93
[2020-01-06 21:11] LABS: Bedside Glucose 193 mg/dL (70-110)
[2020-01-06] MEDS: Atorvastatin Calcium 40 MG Tablet PO (21:24)
[2020-01-06] MEDS: Mirtazapine 15 MG Tablet PO (21:24)
[2020-01-07 05:31] LABS: International Normalized Ratio 2.1; Prothrombin Time (Protime)PT. 23.9 SECONDS (11.7-14.9)
[2020-01-07] MEDS: Menthol/Lanolin/Calamine/Znox 113 GM Tube 1 APPLIC TOPICAL ×2 (06:02→20:32)
[2020-01-07] MEDS: Glucerna Shake 120 ML LIQUID PO ×4 (06:02→20:45)
[2020-01-07] MEDS: Clopidogrel Bisulfate 75 MG Tablet PO (06:02)
[2020-01-07] MEDS: SACUBITRIL/VALSARTAN 24/26 MG TABLET 1 EACH PO ×2 (06:02→17:43)
[2020-01-07 06:03] VITALS: BP 103/61; PULSE 70; RESP 16; TEMP 36.6; O2SAT 93
[2020-01-07] MEDS: Pantoprazole Sodium 40 MG Tablet PO (06:03)
[2020-01-07] MEDS: Metoprolol(XL)Succ 50 MG Tablet PO (06:03)
[2020-01-07] MEDS: Senna/Docusate Sodium 1 Tablet 2 TABLET PO ×2 (06:03→17:43)
[2020-01-07] MEDS: Levothyroxine 75 MCG Tablet PO (06:03)
[2020-01-07 06:20] LABS: Bedside Glucose 108 mg/dL (70-110)
[2020-01-07] MEDS: Dronabinol 2.5 MG Capsule PO ×2 (06:58→16:23)
[2020-01-07] MEDS: Calcium Carbonate 500 MG Tablet PO (08:00)
[2020-01-07] MEDS: Amiodarone 200 MG Tablet PO (08:02)
[2020-01-07] MEDS: Folic Acid 1 MG Tablet 2 MG PO (08:02)
[2020-01-07] MEDS: Allopurinol 100 MG Tablet PO (08:02)
[2020-01-07] MEDS: Gabapentin 100 MG Capsule PO ×3 (08:03→17:43)
[2020-01-07] MEDS: Glimepiride 4 MG Tablet PO (08:03)
[2020-01-07] MEDS: Gabapentin 300 MG Capsule PO ×3 (08:03→17:43)
[2020-01-07 08:10] VITALS: BP 105/52; PULSE 70
[2020-01-07 11:06] LABS: Bedside Glucose 143 mg/dL (70-110)
[2020-01-07 14:24] VITALS: BP 91/40; PULSE 71; RESP 18; TEMP 36.3; O2SAT 95
--- NOTE | 2020-01-07 16:03 | CASEMGMT ---
Social Work Completed Advanced Directives. Pt named [facility] and son Napoleon Dunn as first alternate. Copies placed on chart. Karla Sexton, social work engineer intern AVERY YeeW
[2020-01-07 20:32] VITALS: PULSE 72; O2SAT 95
[2020-01-07] MEDS: Atorvastatin Calcium 40 MG Tablet PO (20:32)
[2020-01-07] MEDS: Mirtazapine 15 MG Tablet PO (20:32)
[2020-01-07 21:41] LABS: Bedside Glucose 153 mg/dL (70-110)
[2020-01-08] MEDS: Menthol/Lanolin/Calamine/Znox 113 GM Tube 1 APPLIC TOPICAL ×2 (06:11→21:31)
[2020-01-08] MEDS: Clopidogrel Bisulfate 75 MG Tablet PO (06:22)
[2020-01-08] MEDS: Senna/Docusate Sodium 1 Tablet 2 TABLET PO (06:22)
[2020-01-08] MEDS: Pantoprazole Sodium 40 MG Tablet PO (06:22)
[2020-01-08] MEDS: Furosemide 40 MG Tablet PO (06:22)
[2020-01-08] MEDS: SACUBITRIL/VALSARTAN 24/26 MG TABLET 1 EACH PO ×2 (06:22→17:01)
[2020-01-08] MEDS: Levothyroxine 75 MCG Tablet PO (06:22)
[2020-01-08] MEDS: Glucerna Shake 120 ML LIQUID PO ×4 (06:26→21:21)
[2020-01-08 06:31] LABS: Bedside Glucose 91 mg/dL (70-110)
[2020-01-08 08:14] VITALS: BP 94/58; PULSE 71; RESP 16; TEMP 36.3; O2SAT 93
[2020-01-08 08:46] LABS: Absolute Lymphocyte Count 0.91 X10^3/uL (0.83-4.51); Absolute Neutrophil Count 4.4 X10^3/uL (2.0-7.7); Basophil% 1.5 % (0-1); Eosinophil# 0.29 X10^3/uL; Eosinophils% 4.4 % (0-5); Hemoglobin 13.7 g/dL (13.0-16.5); Lymphocyte # 0.91 X10^3/ul (4.0); Lymphocyte % 13.8 % (19-41); Mean Corp Hgb Conc 32.6 g/dL (32-36); Mean Corpuscular Hgb 30.9 pg (27.0-32.0); Mean Corpuscular Volume 94.8 fL (80-94); Monocyte# 0.91 X10^3/uL; Monocyte% 13.8 % (0-10); NRBC Flagged by Analyzer 0 % (0-5); Neutrophil # 4.35 X10^3/uL (2.7-7.7); Neutrophil % 65.7 % (47-70); Platelet Count 295 K/mm3 (150-450); RBC Distribution Width CV 16.8 % (11.6-14.6); RBC Distribution Width SD 58.4 fl (35.1-43.9); Red Blood Count 4.43 M/mm3 (4.6-6.2); White Blood Count 6.6 K/mm3 (4.4-11.0)
[2020-01-08 09:00] LABS: Anion Gap 6 (5-15); BUN 20 mg/dL (7-18); BUN/Creat Ratio 17.9 RATIO (10-20); Calcium,Total 9.6 mg/dL (8.5-10.1); Chloride 104 mmol/L (98-107); Creatinine, Serum 1.12 mg/dL (0.70-1.30); EST Glomerular Filtration Rate 67 mL/min (>60); Est Glom Filt Rate - Afr Amer 81 mL/min (>60); Estimated Creatinine Clearance 48.36 ml/min; Glucose 108 mg/dL (74-106); Potassium 4.3 mmol/L (3.5-5.1); Sodium Level 137 mmol/L (136-145)
[2020-01-08] MEDS: 0.9% Normal Saline 1,000 ML 999 ML IV (09:11)
[2020-01-08] MEDS: Amiodarone 200 MG Tablet PO (09:19)
[2020-01-08] MEDS: Gabapentin 300 MG Capsule PO ×3 (09:19→17:00)
[2020-01-08] MEDS: Allopurinol 100 MG Tablet PO (09:20)
[2020-01-08 09:22] LABS: Mucous, Urine 0 SEEN /hpf (<or=2+); Squamous Epithelial Cells - UA 0 SEEN /hpf (0-5)
--- NOTE | 2020-01-08 09:23 | NURSING ---
pt lethargic this am, vital taken and dr billingsley notified of vitals and lethargy. urine sample obtained and urine sent to lab. iv started for bolus per dr katz.
[2020-01-08 09:24] LABS: Color, Urine Yellow (Yellow); Glucose, Dipstick Normal (Normal); Ketone-Dipstick Negative (Negative); Leukocyte Esterase-Dipstick 500 /ul (Negative); Nitrite-Dipstick Negative (Negative); Occult Blood-Urine 250 /ul (Negative); Protein-Dipstick 15 mg/dl (Negative); Urine Bilirubin Dipstick Negative (Negative); Urine Clarity Sl. Cloudy (Clear); Urine Urobilinogen Normal (Normal); Urine pH 6.5 (5.0 - 8.0)
[2020-01-08 09:43] LABS: Bacteria 1+ /hpf (None Seen); Red Blood Cells-Urine 10-25 SEEN /hpf (0-5); White Blood Cells 50-100 SEEN /hpf (0-5); Yeast-Urine 1+ /hpf (None Seen)
[2020-01-08 11:05] LABS: Bedside Glucose 105 mg/dL (70-110)
[2020-01-08] MEDS: CEFUROXIME AXETIL 250 MG TABLET PO ×2 (12:21→17:00)
[2020-01-08 13:39] VITALS: BP 120/62; PULSE 70; RESP 16; TEMP 36.4; O2SAT 96
[2020-01-08 16:06] LABS: Bedside Glucose 170 mg/dL (70-110)
[2020-01-08] MEDS: Senna/Docusate Sodium 1 Tablet PO (17:02)
[2020-01-08 21:11] LABS: Bedside Glucose 197 mg/dL (70-110)
[2020-01-08] MEDS: Mirtazapine 15 MG Tablet 7.5 MG PO (21:23)
[2020-01-08] MEDS: Atorvastatin Calcium 40 MG Tablet PO (21:23)
[2020-01-09 06:31] LABS: Bedside Glucose 77 mg/dL (70-110)
[2020-01-09] MEDS: Menthol/Lanolin/Calamine/Znox 113 GM Tube 1 APPLIC TOPICAL ×2 (06:40→22:16)
[2020-01-09] MEDS: Levothyroxine 75 MCG Tablet PO (06:40)
[2020-01-09] MEDS: Pantoprazole Sodium 40 MG Tablet PO (06:40)
[2020-01-09] MEDS: Senna/Docusate Sodium 1 Tablet PO ×2 (06:40→17:50)
[2020-01-09] MEDS: CEFUROXIME AXETIL 250 MG TABLET PO ×2 (06:41→17:50)
[2020-01-09] MEDS: Clopidogrel Bisulfate 75 MG Tablet PO (06:41)
[2020-01-09] MEDS: Glucerna Shake 120 ML LIQUID PO ×4 (06:43→22:14)
[2020-01-09 06:46] VITALS: BP 97/63; PULSE 70
[2020-01-09] MEDS: Amiodarone 200 MG Tablet PO (08:50)
[2020-01-09] MEDS: Allopurinol 100 MG Tablet PO (08:50)
[2020-01-09] MEDS: Gabapentin 100 MG Capsule 200 MG PO ×3 (08:50→17:49)
[2020-01-09 10:00] VITALS: O2SAT 95
[2020-01-09 10:56] LABS: Bedside Glucose 244 mg/dL (70-110)
[2020-01-09 13:39] VITALS: BP 104/59; PULSE 71; RESP 16; TEMP 36.5; O2SAT 96
[2020-01-09 16:36] LABS: Bedside Glucose 149 mg/dL (70-110)
[2020-01-09] MEDS: SACUBITRIL/VALSARTAN 24/26 MG TABLET 1 EACH PO (17:51)
[2020-01-09 21:11] LABS: Bedside Glucose 227 mg/dL (70-110)
[2020-01-09] MEDS: Acetaminophen 500 MG Tablet 1000 MG PO (22:14)
[2020-01-09] MEDS: Mirtazapine 15 MG Tablet 7.5 MG PO (22:15)
[2020-01-09] MEDS: Atorvastatin Calcium 40 MG Tablet PO (22:15)
[2020-01-10 06:21] LABS: Bedside Glucose 101 mg/dL (70-110)
[2020-01-10] MEDS: Glucerna Shake 120 ML LIQUID PO ×4 (06:55→21:55)
[2020-01-10] MEDS: Menthol/Lanolin/Calamine/Znox 113 GM Tube 1 APPLIC TOPICAL ×2 (06:56→21:56)
[2020-01-10] MEDS: CEFUROXIME AXETIL 250 MG TABLET PO (06:57)
[2020-01-10] MEDS: Clopidogrel Bisulfate 75 MG Tablet PO (06:58)
[2020-01-10] MEDS: Pantoprazole Sodium 40 MG Tablet PO (06:59)
[2020-01-10] MEDS: Levothyroxine 75 MCG Tablet PO (07:02)
[2020-01-10] MEDS: Senna/Docusate Sodium 1 Tablet PO ×2 (07:02→17:13)
[2020-01-10] MEDS: SACUBITRIL/VALSARTAN 24/26 MG TABLET 1 EACH PO ×2 (07:03→17:13)
[2020-01-10 07:05] VITALS: BP 98/60; PULSE 73
[2020-01-10] MEDS: Metoprolol(XL)Succ 25 MG Tablet PO (07:05)
[2020-01-10] MEDS: Gabapentin 100 MG Capsule 200 MG PO ×3 (08:08→17:13)
[2020-01-10] MEDS: Amiodarone 200 MG Tablet PO (08:10)
[2020-01-10] MEDS: Allopurinol 100 MG Tablet PO (08:10)
[2020-01-10 10:00] VITALS: PULSE 70; RESP 16; O2SAT 96
[2020-01-10 10:56] LABS: Bedside Glucose 220 mg/dL (70-110)
[2020-01-10 13:47] VITALS: BP 113/66; PULSE 70; RESP 16; TEMP 36.3; O2SAT 98
[2020-01-10] MEDS: 0.9% NaCl Peripheral Flush Adult/Peds IV ×2 (15:34→21:59)
[2020-01-10 16:36] LABS: Bedside Glucose 159 mg/dL (70-110)
[2020-01-10 21:26] LABS: Bedside Glucose 172 mg/dL (70-110)
[2020-01-10] MEDS: Atorvastatin Calcium 40 MG Tablet PO (21:56)
[2020-01-10] MEDS: Mirtazapine 15 MG Tablet 7.5 MG PO (21:57)
[2020-01-10] MEDS: Acetaminophen 500 MG Tablet 1000 MG PO (22:11)
[2020-01-11] MEDS: Glucerna Shake 120 ML LIQUID PO ×4 (05:10→20:23)
[2020-01-11] MEDS: SACUBITRIL/VALSARTAN 24/26 MG TABLET 1 EACH PO ×2 (05:11→17:58)
[2020-01-11] MEDS: Clopidogrel Bisulfate 75 MG Tablet PO (05:12)
[2020-01-11] MEDS: Pantoprazole Sodium 40 MG Tablet PO (05:12)
[2020-01-11 05:13] VITALS: BP 116/75; PULSE 70
[2020-01-11] MEDS: Metoprolol(XL)Succ 25 MG Tablet PO (05:13)
[2020-01-11] MEDS: Senna/Docusate Sodium 1 Tablet PO ×2 (05:13→17:58)
[2020-01-11] MEDS: Levothyroxine 75 MCG Tablet PO (05:13)
[2020-01-11] MEDS: Menthol/Lanolin/Calamine/Znox 113 GM Tube 1 APPLIC TOPICAL ×2 (05:14→20:23)
[2020-01-11 06:26] LABS: Bedside Glucose 120 mg/dL (70-110)
[2020-01-11 06:49] LABS: International Normalized Ratio 2.3; Prothrombin Time (Protime)PT. 24.8 SECONDS (11.7-14.9)
[2020-01-11] MEDS: Gabapentin 100 MG Capsule 200 MG PO ×3 (08:37→17:57)
[2020-01-11] MEDS: Amiodarone 200 MG Tablet PO (08:37)
[2020-01-11] MEDS: Allopurinol 100 MG Tablet PO (08:37)
[2020-01-11 08:41] VITALS: BP 103/60; PULSE 70
[2020-01-11] MEDS: 0.9% NaCl Peripheral Flush Adult/Peds IV ×2 (10:00→20:30)
[2020-01-11 11:11] LABS: Bedside Glucose 218 mg/dL (70-110)
--- NOTE | 2020-01-11 14:24 | CASEMGMT ---
Addendum entered by Erika Abad 01/12/20 08:27: Correction to typo: Patient DID NOT report to having a plan or method of harming self. Addendum entered by Erika Abad 01/11/20 14:40: Spoke with pt r/t possible suicidal ideations. Completed [place] Suicide Assessment. Pt did report to having a plan or method of harming self. Pt expressed the following day is the 6 year anniversary of his late-'s , and this year it is harder d/t being in rehab and not allowing any visitors. Discussed with pt positive coping skills that assisted pt through this time the previous years. Pt stated he would reminisce on memories, being with his and their family, keep himself busy. Explored activities pt enjoys - watching TV, listening to country music. Pt agreed for CD player in room with [employer] music. Pt denied other suggested self-directed activities. Pt shared with SW memories he has of late- and at his childhood home. Pt expressed a strong relationship with God. Offered to contact pt's geological survey field assistant to call for support as well as hospital geological survey field assistant - pt agreed. Contacts made. SW assessed that pt has no potential to harm self or others while in TCU or at home, at this time. Will continue to follow for emotional and verbal support. AVERY Yee Original Note: Social Work Met with pt to complete BIMS and PHQ-9 for MDS assessment. Pt reported to multiple depressive symptoms. When asked if pt had thoughts of suicide, pt responded with a yes. When this SWI explored those feelings, pt expressed feeling as though if he he would not be a burden to others. When asked how many times he has had those thoughts pt replied with 5 or 6 times a day. Asked pt if he were to go home, would he have a plan on how to harm himself, pt stated he would not. Provided emotional support and discussed with pt positive coping skills with looking forward to more memories with . Pt did express that first 6 years ago, almost to this date, talked about positive coping skills with being able to talk and grieve with new . Karla Sexton, social work audit practice intern Erika Jorgensen, AVERY MORALESW
[2020-01-11 14:46] VITALS: BP 102/59; PULSE 70; RESP 14; TEMP 36.6; O2SAT 96
[2020-01-11 17:11] LABS: Bedside Glucose 162 mg/dL (70-110)
[2020-01-11] MEDS: Atorvastatin Calcium 40 MG Tablet PO (20:26)
[2020-01-11] MEDS: Mirtazapine 15 MG Tablet 7.5 MG PO (20:26)
[2020-01-11 21:56] LABS: Bedside Glucose 261 mg/dL (70-110)
[2020-01-12 05:42] VITALS: BP 120/56; PULSE 70
[2020-01-12] MEDS: Clopidogrel Bisulfate 75 MG Tablet PO (05:42)
[2020-01-12] MEDS: SACUBITRIL/VALSARTAN 24/26 MG TABLET 1 EACH PO ×2 (05:42→17:41)
[2020-01-12] MEDS: Metoprolol(XL)Succ 25 MG Tablet PO (05:42)
[2020-01-12] MEDS: Senna/Docusate Sodium 1 Tablet PO ×2 (05:42→17:41)
[2020-01-12] MEDS: Glucerna Shake 120 ML LIQUID PO ×4 (05:42→21:06)
[2020-01-12] MEDS: Levothyroxine 75 MCG Tablet PO (05:42)
[2020-01-12] MEDS: Pantoprazole Sodium 40 MG Tablet PO (05:42)
[2020-01-12] MEDS: Menthol/Lanolin/Calamine/Znox 113 GM Tube 1 APPLIC TOPICAL ×2 (05:44→21:06)
[2020-01-12 06:40] LABS: Bedside Glucose 145 mg/dL (70-110)
[2020-01-12] MEDS: Allopurinol 100 MG Tablet PO (08:30)
[2020-01-12] MEDS: Gabapentin 100 MG Capsule 200 MG PO ×3 (08:30→17:41)
[2020-01-12] MEDS: Amiodarone 200 MG Tablet PO (08:30)
[2020-01-12 08:32] VITALS: BP 128/70; PULSE 72
[2020-01-12 10:00] VITALS: PULSE 69; RESP 18; O2SAT 96
[2020-01-12 11:06] LABS: Bedside Glucose 164 mg/dL (70-110)
[2020-01-12] MEDS: 0.9% NaCl Peripheral Flush Adult/Peds IV (11:11)
--- NOTE | 2020-01-12 13:56 | CASEMGMT ---
Social Work Reviewed and agreed with social work director internal communications documentation on this date. Erika Abad, INDUSTRIAL INSULATOR PICKER PACKER
[2020-01-12 14:27] VITALS: BP 122/66; PULSE 67; RESP 18; TEMP 37; O2SAT 95
[2020-01-12 17:06] LABS: Bedside Glucose 192 mg/dL (70-110)
[2020-01-12] MEDS: Atorvastatin Calcium 40 MG Tablet PO (21:06)
[2020-01-12] MEDS: Mirtazapine 15 MG Tablet 7.5 MG PO (21:06)
[2020-01-12 22:06] LABS: Bedside Glucose 243 mg/dL (70-110)
[2020-01-13] MEDS: Glucerna Shake 120 ML LIQUID PO ×4 (06:20→20:32)
[2020-01-13] MEDS: Pantoprazole Sodium 40 MG Tablet PO (06:22)
[2020-01-13] MEDS: Levothyroxine 75 MCG Tablet PO (06:23)
[2020-01-13] MEDS: SACUBITRIL/VALSARTAN 24/26 MG TABLET 1 EACH PO ×2 (06:23→17:33)
[2020-01-13] MEDS: Senna/Docusate Sodium 1 Tablet PO ×2 (06:23→17:34)
[2020-01-13] MEDS: Menthol/Lanolin/Calamine/Znox 113 GM Tube 1 APPLIC TOPICAL ×2 (06:23→20:42)
[2020-01-13] MEDS: Clopidogrel Bisulfate 75 MG Tablet PO (06:23)
[2020-01-13 06:26] LABS: Absolute Lymphocyte Count 0.91 X10^3/uL (0.83-4.51); Absolute Neutrophil Count 3.1 X10^3/uL (2.0-7.7); Basophil# 0.09 X10^3/uL; Basophil% 1.8 % (0-1); Eosinophil# 0.34 X10^3/uL; Eosinophils% 6.6 % (0-5); Hematocrit 38.5 % (40-54); Hemoglobin 12.5 g/dL (13.0-16.5); Lymphocyte # 0.91 X10^3/ul (4.0); Lymphocyte % 17.7 % (19-41); Mean Corp Hgb Conc 32.5 g/dL (32-36); Mean Corpuscular Hgb 30.9 pg (27.0-32.0); Mean Corpuscular Volume 95.1 fL (80-94); Mean Platelet Vol. 11.1 fl (6.2-12.0); Monocyte# 0.69 X10^3/uL; Monocyte% 13.5 % (0-10); NRBC Flagged by Analyzer 0 % (0-5); Neutrophil # 3.08 X10^3/uL (2.7-7.7); Platelet Count 228 K/mm3 (150-450); RBC Distribution Width CV 16.7 % (11.6-14.6); RBC Distribution Width SD 57.8 fl (35.1-43.9); Red Blood Count 4.05 M/mm3 (4.6-6.2); White Blood Count 5.1 K/mm3 (4.4-11.0)
[2020-01-13 06:27] VITALS: BP 126/62; PULSE 70
[2020-01-13] MEDS: Metoprolol(XL)Succ 25 MG Tablet PO (06:27)
[2020-01-13 06:31] LABS: Bedside Glucose 145 mg/dL (70-110)
[2020-01-13 06:50] LABS: Anion Gap 5 (5-15); BUN 12 mg/dL (7-18); BUN/Creat Ratio 14.6 RATIO (10-20); Chloride 105 mmol/L (98-107); Creatinine, Serum 0.82 mg/dL (0.70-1.30); EST Glomerular Filtration Rate 95 mL/min (>60); Est Glom Filt Rate - Afr Amer 115 mL/min (>60); Estimated Creatinine Clearance 66.06 ml/min; Glucose 140 mg/dL (74-106); Potassium 4.2 mmol/L (3.5-5.1); Sodium Level 135 mmol/L (136-145)
[2020-01-13] MEDS: Allopurinol 100 MG Tablet PO (08:10)
[2020-01-13] MEDS: Amiodarone 200 MG Tablet PO (08:10)
[2020-01-13] MEDS: Gabapentin 100 MG Capsule PO ×3 (08:11→17:34)
--- NOTE | 2020-01-13 09:15 | CASEMGMT ---
Social Work IDT met with patient and via conference call for care plan meeting. Discussed patient's progress in therapy. Pt is mod I for bed mobility, CGA for transfers with FWW, ambulating 80 ft CGA-SBA with FWW, SBA-set up for UE ADLS while seated, CGA for LE bathing, min assist for LE dressing, min assist for toileting tasks. ST working on problem solving for safety, orientation, teaching of external memory strategies. Pt having balance issues and recommending assist for memory issues. Pt is on a regular diet, 2000 cc. fluid restriction, intake variable, mighty shake and med pass with meals. Pt on appetite stimulant to assist. Will continue to monitor weight. Continuing to provide emotional support for pt. Pt has CD player and [employer] music in room and provided TV channel list. Explained Medicare benefit. Inquired to what pt needs to do to return home successfully. stated to strengthen his legs, sitting in a chair more controlled. Ensured pt is working on those goals in therapy and can come out of the room d/t isolation precautions 01/18. IDT recommending continued therapy, if pt is agreeable to remain. Pt agreeable. Discussed HHC v outpatient therapy. Pt requesting HHC but concerned pt will not do enough at home. Will provide home exercises at [place]. 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 Provided tips to assist with safety at home for and answered 's questions on FMLA. Will continue to follow. Erika Abad, JUTE BAG SEWER OUTREACH ASSOCIATE
[2020-01-13] MEDS: Tuberculin,Purif.prot.deriv. 50 TU/ML Vial 5 ML ID (09:47)
[2020-01-13 11:15] LABS: Bedside Glucose 250 mg/dL (70-110)
--- NOTE | 2020-01-13 12:01 | MDS.RN ---
Information for the mds was obtained from review of the clinical record, interview of resident, staff, and direct observation of resident's care.
--- NOTE | 2020-01-13 14:06 | CASEMGMT ---
Social Work Reviewed and agreed with social work trestle mainternance laborer documentation on this date. Erika Abad, INTAKE CLINICIAN BUTCHERETTE
[2020-01-13 14:29] VITALS: BP 141/69; PULSE 70; RESP 16; TEMP 36.6; O2SAT 95
--- NOTE | 2020-01-13 16:44 | CHAPLAIN ---
Type of Pastoral Visit ___ Initial Visit _x__ Follow-up Visit ___ On-call Visit ___ General Patient Visit ___ Spiritual Assessment ___ Family Conference ___ Bereavement ___ Rapid Response ___ Code Blue ___ Other (describe below) Pastoral Care Referral From _x__ Patient ___ Family ___ Nurse ___ Physician _x__ Clinical Training Specialist ___ Clinical Pharmacy Specialist ___ Other (describe below) Sacrament/Intervention _x__ Active listening ___ Anointing ___ Taoism ___ Bereavement ___ Communion ___ Karin exploration ___ _x__ Life review _x__ Prayer ___ Reconciliation ___ Sacrament of Sick _x__ Supportive presence ___ Wedding ___ Other (describe below) Pastoral Comments
[2020-01-13 16:46] LABS: Bedside Glucose 226 mg/dL (70-110)
[2020-01-13 20:20] VITALS: PULSE 70; O2SAT 93
[2020-01-13] MEDS: Mirtazapine 15 MG Tablet 7.5 MG PO (20:31)
[2020-01-13] MEDS: Atorvastatin Calcium 40 MG Tablet PO (20:32)
[2020-01-13] MEDS: Acetaminophen 500 MG Tablet 1000 MG PO (20:41)
[2020-01-13 20:56] LABS: Bedside Glucose 170 mg/dL (70-110)
[2020-01-14 06:24] VITALS: BP 111/67; PULSE 70
[2020-01-14] MEDS: Metoprolol(XL)Succ 25 MG Tablet PO (06:24)
[2020-01-14] MEDS: Senna/Docusate Sodium 1 Tablet PO ×2 (06:24→17:38)
[2020-01-14] MEDS: SACUBITRIL/VALSARTAN 24/26 MG TABLET 1 EACH PO ×2 (06:24→17:37)
[2020-01-14] MEDS: Menthol/Lanolin/Calamine/Znox 113 GM Tube 1 APPLIC TOPICAL ×2 (06:24→21:43)
[2020-01-14] MEDS: Glucerna Shake 120 ML LIQUID PO ×4 (06:24→21:42)
[2020-01-14] MEDS: Levothyroxine 75 MCG Tablet PO (06:24)
[2020-01-14] MEDS: Clopidogrel Bisulfate 75 MG Tablet PO (06:24)
[2020-01-14] MEDS: Pantoprazole Sodium 40 MG Tablet PO (06:24)
[2020-01-14 07:48] LABS: Bedside Glucose 139 mg/dL (70-110)
[2020-01-14] MEDS: Gabapentin 100 MG Capsule PO ×3 (07:56→17:37)
[2020-01-14] MEDS: Allopurinol 100 MG Tablet PO (07:56)
[2020-01-14] MEDS: Amiodarone 200 MG Tablet PO (07:56)
[2020-01-14 08:48] LABS: Prothrombin Time (Protime)PT. 22.7 SECONDS (11.7-14.9)
[2020-01-14 10:55] LABS: Bedside Glucose 279 mg/dL (70-110)
[2020-01-14 13:37] VITALS: BP 121/73; PULSE 70; RESP 16; TEMP 36.7; O2SAT 98
[2020-01-14 16:31] LABS: Bedside Glucose 170 mg/dL (70-110)
[2020-01-14] MEDS: Nystatin Powder 15gm Bottle 1 APPLIC TOPICAL (17:43)
[2020-01-14 21:01] LABS: Bedside Glucose 254 mg/dL (70-110)
[2020-01-14] MEDS: Mirtazapine 15 MG Tablet 7.5 MG PO (21:45)
[2020-01-14] MEDS: Atorvastatin Calcium 40 MG Tablet PO (21:45)
[2020-01-15] MEDS: Glucerna Shake 120 ML LIQUID PO ×4 (05:32→21:14)
[2020-01-15] MEDS: SACUBITRIL/VALSARTAN 24/26 MG TABLET 1 EACH PO ×2 (05:32→16:38)
[2020-01-15 05:34] VITALS: BP 113/72; PULSE 70
[2020-01-15] MEDS: Pantoprazole Sodium 40 MG Tablet PO (05:34)
[2020-01-15] MEDS: Metoprolol(XL)Succ 25 MG Tablet PO (05:34)
[2020-01-15] MEDS: Clopidogrel Bisulfate 75 MG Tablet PO (05:34)
[2020-01-15] MEDS: Levothyroxine 75 MCG Tablet PO (05:34)
[2020-01-15] MEDS: Senna/Docusate Sodium 1 Tablet PO ×2 (05:37→16:39)
[2020-01-15] MEDS: Nystatin Powder 15gm Bottle 1 APPLIC TOPICAL ×2 (05:39→16:39)
[2020-01-15] MEDS: Menthol/Lanolin/Calamine/Znox 113 GM Tube 1 APPLIC TOPICAL ×2 (05:39→21:14)
[2020-01-15 06:35] LABS: Bedside Glucose 196 mg/dL (70-110)
[2020-01-15] MEDS: Gabapentin 100 MG Capsule PO ×3 (08:01→16:38)
[2020-01-15] MEDS: Amiodarone 200 MG Tablet PO (08:01)
[2020-01-15] MEDS: Allopurinol 100 MG Tablet PO (08:01)
[2020-01-15 11:06] LABS: Bedside Glucose 248 mg/dL (70-110)
--- NOTE | 2020-01-15 13:31 | CASEMGMT ---
Addendum entered by Erika Abad 01/20/20 14:18: ST to DC services on this date for pt. Updated [facility] to no longer need ST at DC. Addendum entered by Erika Abad 01/18/20 13:49: Spoke with about [facility] agency. and pt chose [facility]. Referral made. No DME needs Original Note: Social Work Met with pt to discuss DC plans and changes to TCU. Explained to pt that DC date set with therapy recommendations for 01/25. Spoke with pt and and both are agreeable and agreeable to [facility]. Pt to choose [facility]-PT/OT/ST/SN. Karla Sexton, social work diversity intern Erika Abad, AVERY SOFTWARE SOLUTIONS ARCHITECT
[2020-01-15 13:52] VITALS: BP 103/61; PULSE 70; RESP 16; TEMP 36.4; O2SAT 96
--- NOTE | 2020-01-15 15:02 | PCM.DC ---
- Discharge Diagnoses Current Active Problems: Current Active and Chronic Problems (Last Reviewed 12/28/19 @ 14:[address] Alicja Ortega DO) Debility (Acute) Empyema, left (Acute) Chronic combined systolic and diastolic CHF (congestive heart failure) (Chronic) Appetite loss (Chronic) Gout (Chronic) Atrial fibrillation (Chronic) Coronary artery disease (Chronic) Vitamin D deficiency (Chronic) Hypertension (Chronic) Hypothyroidism (Chronic) GERD (gastroesophageal reflux disease) (Chronic) Diabetic polyneuropathy (Chronic) Diabetes mellitus (Chronic) Obstructive sleep apnea (Chronic) You will use the following diet at home:: Regular, Fluid restricted (specify 2000 mls, 1500 mls) - 1500 mls. Your food should be the consistency of: Regular Your liquids should be the consistency of: Regular/Thin Discharge Activity: Return to Normal Activity, May Not Drive, Use Walker Weight Bearing Status: Weight bearing as tolerated Call your doctor if you observe: Fever of 101 or Higher, Inability to urinate, Inability to have a bowel movement, Shortness of breath, Chest pain, Uncontrolled pain Allergies/Adverse Reactions: Allergies Iodine and Iodide Containing Produc Adverse Reaction (Severe, Verified 12/01/19 17:31) Diarrhea metformin Adverse Reaction (Verified 12/01/19 17:31) Upset Stomach niacin Adverse Reaction (Verified 12/01/19 17:31) Other Medications to take at Discharge Allopurinol [Zyloprim] 100 mg PO DAILY 11/27/19 Clopidogrel Bisulfate [Clopidogrel] 75 mg PO DAILY 11/27/19 Levothyroxine [Synthroid] 75 mcg PO DAILY 11/27/19 Nitroglycerin 0.4 mg SL Q5M MDD 3 11/27/19 Pantoprazole Sodium [Protonix] 40 mg PO DAILY 11/27/19 Rosuvastatin Calcium [Crestor] 20 mg PO DAILY 11/27/19 Acetaminophen [Tylenol] 1,000 mg PO Q6H PRN PRN tab 01/15/20 Amiodarone HCl [Cordarone] 200 mg PO DAILY #30 tab 01/15/20 Insulin Glargine [Lantus SoloStar Pen] 5 units SUBCUT QHS pen 01/15/20 Menthol/Lanolin/Calamine/Znox [Calmoseptine Ointment] 1 applic TOPICAL BID@0600,2200 tube 04/03/20 Metoprolol Succinate [Toprol Xl] 50 mg PO DAILY #30 01/15/20 Mirtazapine [Remeron] 7.5 mg PO QHS #15 tab 01/15/20 Nystatin Powder [Mycostatin Powder] 1 applic TOPICAL BID bottle 01/15/20 Sacubitril/Valsartan 49-51 mg [Entresto 49 mg-51 mg Tablet] 1 ea PO BID #18 tab 01/15/20 Warfarin [Coumadin] 1 mg PO DAILY@1700 #30 tab 01/15/20 The following prescriptions were given: Amiodarone HCl [Cordarone] 200 mg PO DAILY #30 tab Transmission Status: Pending to [address] Warfarin [Coumadin] 1 mg PO DAILY@1700 #30 tab Transmission Status: Pending to [address] Sacubitril/Valsartan 49-51 mg [Entresto 49 mg-51 mg Tablet] 1 ea PO BID #18 tab Transmission Status: Pending to [address] Mirtazapine [Remeron] 7.5 mg PO QHS #15 tab Transmission Status: Pending to [address] Metoprolol Succinate [Toprol Xl] 50 mg PO DAILY #30 Orders to be completed after discharge: Prothrombin Time w/INR Time Frame: 1 Day, Facility: [facility], Location: Laboratory Primary Care Physician: Angel Lang MD [Primary Care Provider] - Please follow up with your Primary Care Physician in: 1 week. Test Results: Test results from this visit will be discussed in further detail at your follow-up appointment, if applicable. Please Follow Up With: Angel Lang MD When: FOLLOW UP AFTER TCU DISCHARGE Please Follow Up With: DR. WERNER SHEPARD Please Follow Up With: YANG RODRIGUEZ DR. Please Follow Up With: [facility] Proposed Discharge Date: 01/26/20
--- NOTE | 2020-01-15 15:04 | PCM.DC.SUM ---
Discharge Date and Diagnosis - Problem List Patient Problems: Active and Suspected Problems (Last Reviewed 12/28/19 @ 14:[address] Alicja Ortega DO) Debility (Acute) Empyema, left (Acute) Date of Admission: 01/05/20 Date of Discharge: 01/26/20 - Primary Discharge Diagnosis Active and Suspected Problems (Last Reviewed 12/28/19 @ 14:[address] Alicja Ortega DO) Debility (Acute) Empyema, left (Acute) - Secondary Discharge Diagnosis Chronic Problems (Last Reviewed 12/28/19 @ 14:[address] Alicja Ortega DO) Heart failure (Chronic) systolic with EF of 35% and diastolic dysfunction Loculated pleural effusion (Chronic) left side with collapse of the LLL...did not expand with thoracostomy tube, even with lytic agent. Atrial flutter (Chronic) Chronic combined systolic and diastolic CHF (congestive heart failure) (Chronic) Appetite loss (Chronic) Gout (Chronic) Atrial fibrillation (Chronic) Coronary artery disease (Chronic) Vitamin D deficiency (Chronic) Hypertension (Chronic) Hypothyroidism (Chronic) GERD (gastroesophageal reflux disease) (Chronic) Diabetic polyneuropathy (Chronic) Diabetes mellitus (Chronic) Obstructive sleep apnea (Chronic) Non-ST elevation (NSTEMI) myocardial infarction (Chronic) elevated troponin to 0.192 on 11/27/19 - indeterminate, had just recently had a BUTTON SAWYER to the RCA at [facility] in early november Presence of stent of bypass graft (Chronic ~11/23/19) PCI/FEDERICO to the SVG to RCA @[facility] 11/23/19 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 (Chronic ~04/20/02) March 2012 Paroxysmal atrial fibrillation (Chronic) History of myocardial infarction (Chronic) [place] in 1981 and 1983 Type 2 diabetes mellitus (Chronic) Atrioventricular block (Chronic) has a PM/AICD Paroxysmal ventricular tachycardia (Chronic) monomorphic - has AICD and is now on Amiodarone Premature ventricular contraction (Chronic) Aortocoronary bypass status (Chronic ~06/18/96) CABG x3 - KO to diag, SVG to RCA and SVG to RCA 06/18/1996 Ischemic cardiomyopathy (Chronic) 35% EF Atherosclerotic heart disease of [place] coronary artery without angina pectoris (Chronic) CABG x3 - KO to diag, SVG to RCA and SVG to RCA 06/18/1996 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) use of anticoagulants (Chronic) Warfarin CKD (chronic kidney disease), stage III (Chronic) HLD (hyperlipidemia) (Chronic) Hospital Course and Treatment Imaging Results: 01/05/20 16:18 Diet: Regular Diet Food consistency:: Regular Liquid Consistency:: Regular/Thin Dietary Modifications:: Fluid Restricted Diet Is pt able to select menu?: Yes Diet Comments: FLUID RES 2000ML Labs (Last 48 Hours) 01/13/20 01/13/20 01/14/20 16:37 20:50 05:58 PT 22.7 H INR 2.0 POC Glucose 226 H 170 H 01/14/20 01/14/20 01/14/20 06:10 10:49 16:27 PT INR POC Glucose 139 H 279 H 170 H 01/14/20 01/15/20 01/15/20 20:56 06:29 10:54 PT INR POC Glucose 254 H 196 H 248 H Operations: None Procedures: None Summary of Care Provided: The patient is a 79 year old Male with below past medical history hospitalized left empyema requiring chest tube, lytic agents, intravenous antibiotics, complicated by loss of appetite, admitted to Inpatient Rehabilitation Unit, now admitting to TCU with debility, here for rehabilitation, strengthening, prior to discharge home with . On TCU, resident started on Entresto for chronic systolic congestive heart failure, discharge home on Entresto 49/51MG BID for 9 days, then increase Entresto to 97/103MG starting 02/04/2020. Mirtazapine 7.5MG at bedtime added for appetite stimulation. Discharge home with , Home Health Care PT/OT/ST/SN. Patient Problems: Active and Suspected Problems (Last Reviewed 12/28/19 @ 14:[address] Alicja Ortega, DO) Debility (Acute) Empyema, left (Acute) - Physical Exam Vitals/I&O's: Vital Signs Temp Pulse Resp BP Pulse Ox 97.6 F L 70 16 103/61 96 01/15/20 13:52 01/15/20 13:52 01/15/20 13:52 01/15/20 13:52 01/15/20 13:52 Oxygen Delivery Method Room Air Weight: 78.021 kg Body Mass Index (BMI) 27.3 Finger Stick Blood Glucose 190 Intake and Output for Last 24 Hours 01/13/20 01/14/20 01/15/20 23:59 23:59 23:59 Intake Total 960 / 960 853 / 853 720 / 720 Balance 960 / 960 853 / 853 720 / 720 Laboratory Results 01/14/20 16:27: POC Glucose 170 H 01/14/20 20:56: POC Glucose 254 H 01/15/20 06:29: POC Glucose 196 H 01/15/20 10:54: POC Glucose 248 H Current Medications Acetaminophen (Tylenol) 1,000 mg PO Q6H PRN PRN PRN Reason: Pain Score 1-07/23 Last Admin: 01/13/20 20:41 Dose: 1,000 mg Documented by: [facility]) [facility] Last Admin: 01/15/20 08:01 Dose: 100 mg Documented by: Amiodarone HCl (Cordarone) [facility] Last Admin: 01/15/20 08:01 Dose: 200 mg Documented by: Atorvastatin Calcium (Lipitor) 40 mg PO QHS [facility] Last Admin: 01/14/20 21:45 Dose: 40 mg Documented by: Bisacodyl (Dulcolax) 10 mg RECTAL DAILY PRN PRN PRN Reason: Constipation Calamine/Phenol (Calmoseptine Ointment) 1 applic TOPICAL BID@0600,2200 [facility]; Protocol Last Admin: 01/15/20 05:39 Dose: 1 applicatio Documented by: Clopidogrel Bisulfate (Plavix) 75 mg PO DAILY [facility] Last Admin: 01/15/20 05:34 Dose: 75 mg Documented by: Gabapentin (Neurontin) [facility] Stop: 01/24/20 08:01 Gabapentin (Neurontin) 100 mg PO TIDCM [facility] Stop: 01/16/20 17:46 Last Admin: 01/15/20 12:54 Dose: 100 mg Documented by: Gabapentin (Neurontin) [facility] Stop: 01/20/20 17:01 Insulin Glargine (Lantus (Bkc)) [facility] Last Admin: 01/14/20 21:44 Dose: 5 u Documented by: Levothyroxine Sodium (Synthroid) 75 mcg PO DAILY [facility] Last Admin: 01/15/20 05:34 Dose: 75 mcg Documented by: Metoprolol Succinate (Toprol Xl (Beta Tiesha)) 25 mg PO DAILY [facility] Last Admin: 01/15/20 05:34 Dose: 25 mg Documented by: Mirtazapine (Remeron) 7.5 mg PO QHS [facility] Last Admin: 01/14/20 21:45 Dose: 7.5 mg Documented by: Nitroglycerin (Nitrostat) 0.4 mg SUBLINGUAL Q5M PRN PRN Reason: .CHEST PAIN Nutritional Formula (Lactose Free) (Glucerna Shake) 120 ml PO 4X/DAY [facility] Last Admin: 01/15/20 11:09 Dose: 120 ml Documented by: Nystatin (Mycostatin Powder) 1 applic TOPICAL BID [facility]; Protocol Last Admin: 01/15/20 05:39 Dose: 1 applicatio Documented by: Ondansetron HCl (Zofran Odt) 4 mg PO Q8H PRN PRN PRN Reason: NAUSEA Pantoprazole Sodium (Protonix) 40 mg PO DAILY [facility] Last Admin: 01/15/20 05:34 Dose: 40 mg Documented by: Sacubitril/Valsartan (Entresto 24 Mg-26 Mg Tablet) 1 each PO BID [facility] Stop: 01/20/20 06:01 Last Admin: 01/15/20 05:32 Dose: 1 each Documented by: Sacubitril/Valsartan (Entresto 49 Mg-51 Mg Tablet) 1 each PO BID [facility] Stop: 02/04/20 06:01 Sacubitril/Valsartan (Entresto 97 Mg-103 Mg Tablet) 1 each PO BID [facility] Senna/Docusate Sodium (Senokot-S, Sharron-Colace) 1 tablet PO BID [facility] Last Admin: 01/15/20 05:37 Dose: 1 tablet Documented by: Sodium Chloride () 5 - 15 ml IV UD PRN PRN Reason: SALINE FLUSH Last Admin: 01/12/20 11:11 Dose: 10 ml Documented by: Warfarin Sodium (Coumadin (Pbkc)) 1 mg PO DAILY@1700 [facility] Last Admin: 01/14/20 17:36 Dose: 1 mg Documented by: Discharge Diet: 6 Cup Fluid Restriction Discharge Activity: Return to Normal Activity, May Not Drive, Use Walker Weight Bearing Status: Weight bearing as tolerated Call your doctor if you observe: Fever of 101 or Higher, Inability to urinate, Inability to have a bowel movement, Shortness of breath, Chest pain, Uncontrolled pain Home Medications: Medications to take at Discharge Allopurinol [Zyloprim] 100 mg PO DAILY 11/27/19 Clopidogrel Bisulfate [Clopidogrel] 75 mg PO DAILY 11/27/19 Levothyroxine [Synthroid] 75 mcg PO DAILY 11/27/19 Nitroglycerin 0.4 mg SL Q5M MDD 3 11/27/19 Pantoprazole Sodium [Protonix] 40 mg PO DAILY 11/27/19 Rosuvastatin Calcium [Crestor] 20 mg PO DAILY 11/27/19 Acetaminophen [Tylenol] 1,000 mg PO Q6H PRN PRN tab 01/15/20 Amiodarone HCl [Cordarone] 200 mg PO DAILY #30 tab 01/15/20 Insulin Glargine [Lantus SoloStar Pen] 5 units SUBCUT QHS pen 01/15/20 Menthol/Lanolin/Calamine/Znox [Calmoseptine Ointment] 1 applic TOPICAL BID@0600,2200 tube 01/15/20 Metoprolol Succinate [Toprol Xl] 50 mg PO DAILY #30 01/15/20 Mirtazapine [Remeron] 7.5 mg PO QHS #15 tab 01/15/20 Nystatin Powder [Mycostatin Powder] 1 applic TOPICAL BID bottle 01/15/20 Sacubitril/Valsartan 49-51 mg [Entresto 49 mg-51 mg Tablet] 1 ea PO BID #18 tab 01/15/20 Warfarin [Coumadin] 1 mg PO DAILY@1700 #30 tab 01/15/20 Following Prescrptions Were Given to Patient: Amiodarone HCl [Cordarone] 200 mg PO DAILY #30 tab Transmission Status: Pending to [facility] Warfarin [Coumadin] 1 mg PO DAILY@1700 #30 tab Transmission Status: Pending to [facility] Sacubitril/Valsartan 49-51 mg [Entresto 49 mg-51 mg Tablet] 1 ea PO BID #18 tab Transmission Status: Pending to [facility] Mirtazapine [Remeron] 7.5 mg PO QHS #15 tab Transmission Status: Pending to [facility] Metoprolol Succinate [Toprol Xl] 50 mg PO DAILY #30 Other Amb Orders: Prothrombin Time w/INR Time Frame: 1 Day, Facility: [facility], Location: Laboratory Primary Care Physician: Angel Lang MD [Primary Care Provider] - Please follow up with your Primary Care Physician in: 1 week. Please Follow Up With: Angel Lang MD When: FOLLOW UP AFTER TCU DISCHARGE Please Follow Up With: DR. WERNER SHEPARD Please Follow Up With: YANG RODRIGUEZ DR. Please Follow Up With: [facility] Disposition: Home with Home Health Minutes spent on discharge:: 35 Patient Condition:: Stable Medical Necessity - Tobacco Use Smoking Status: Never smoker Tobacco Use: Non-smoker Meaningful Use Info Meaningful Use Diagnoses (Choose all that apply): None applicable
--- NOTE | 2020-01-15 15:35 | CASEMGMT ---
Social Work Reviewed and agreed with social work international freight forwarder documentation on this date. Erika Abad, CADDY/CADDIE SUPERVISOR FLOAT TENDER
[2020-01-15 16:25] LABS: Bedside Glucose 222 mg/dL (70-110)
[2020-01-15 20:35] VITALS: PULSE 70; RESP 16; O2SAT 93
[2020-01-15] MEDS: Atorvastatin Calcium 40 MG Tablet PO (20:42)
[2020-01-15] MEDS: Mirtazapine 15 MG Tablet 7.5 MG PO (20:43)
[2020-01-15 21:40] LABS: Bedside Glucose 253 mg/dL (70-110)
[2020-01-16] MEDS: Glucerna Shake 120 ML LIQUID PO (06:18)
[2020-01-16] MEDS: Levothyroxine 75 MCG Tablet PO (06:18)
[2020-01-16] MEDS: SACUBITRIL/VALSARTAN 24/26 MG TABLET 1 EACH PO ×2 (06:18→17:51)
[2020-01-16] MEDS: Pantoprazole Sodium 40 MG Tablet PO (06:18)
[2020-01-16] MEDS: Senna/Docusate Sodium 1 Tablet PO ×2 (06:18→17:49)
[2020-01-16] MEDS: Clopidogrel Bisulfate 75 MG Tablet PO (06:18)
[2020-01-16] MEDS: Nystatin Powder 15gm Bottle 1 APPLIC TOPICAL ×2 (06:19→17:50)
[2020-01-16] MEDS: Menthol/Lanolin/Calamine/Znox 113 GM Tube 1 APPLIC TOPICAL ×2 (06:19→21:04)
[2020-01-16 06:21] VITALS: BP 103/59; PULSE 71
[2020-01-16] MEDS: Metoprolol(XL)Succ 25 MG Tablet PO (06:21)
[2020-01-16 06:30] LABS: Bedside Glucose 164 mg/dL (70-110)
[2020-01-16] MEDS: Gabapentin 100 MG Capsule PO ×3 (08:43→17:48)
[2020-01-16] MEDS: Allopurinol 100 MG Tablet PO (08:43)
[2020-01-16] MEDS: Amiodarone 200 MG Tablet PO (08:43)
[2020-01-16 08:46] VITALS: BP 106/64; PULSE 71
[2020-01-16 14:19] VITALS: BP 104/75; PULSE 69; RESP 16; TEMP 36.4; O2SAT 96
[2020-01-16] MEDS: Mirtazapine 15 MG Tablet 7.5 MG PO (21:09)
[2020-01-16] MEDS: Atorvastatin Calcium 40 MG Tablet PO (21:09)
[2020-01-16 21:20] LABS: Bedside Glucose 319 mg/dL (70-110)
[2020-01-16] MEDS: Acetaminophen 500 MG Tablet 1000 MG PO (21:52)
[2020-01-17 05:59] VITALS: BP 117/76; PULSE 70
[2020-01-17 06:03] VITALS: BP 117/76; PULSE 70
[2020-01-17] MEDS: Pantoprazole Sodium 40 MG Tablet PO (06:03)
[2020-01-17] MEDS: Clopidogrel Bisulfate 75 MG Tablet PO (06:03)
[2020-01-17] MEDS: Senna/Docusate Sodium 1 Tablet PO ×2 (06:03→17:37)
[2020-01-17] MEDS: SACUBITRIL/VALSARTAN 24/26 MG TABLET 1 EACH PO ×2 (06:03→17:37)
[2020-01-17] MEDS: Metoprolol(XL)Succ 25 MG Tablet PO (06:03)
[2020-01-17] MEDS: Levothyroxine 75 MCG Tablet PO (06:03)
[2020-01-17] MEDS: Menthol/Lanolin/Calamine/Znox 113 GM Tube 1 APPLIC TOPICAL ×2 (06:04→21:28)
[2020-01-17] MEDS: Nystatin Powder 15gm Bottle 1 APPLIC TOPICAL ×2 (06:04→17:38)
[2020-01-17 06:16] LABS: Bedside Glucose 159 mg/dL (70-110)
[2020-01-17] MEDS: Gabapentin 100 MG Capsule PO ×2 (08:08→17:37)
[2020-01-17] MEDS: Allopurinol 100 MG Tablet PO (08:08)
[2020-01-17] MEDS: Amiodarone 200 MG Tablet PO (08:09)
[2020-01-17 08:11] VITALS: BP 120/66; PULSE 70
[2020-01-17 09:40] VITALS: PULSE 69; RESP 18; O2SAT 96
[2020-01-17 14:54] VITALS: BP 120/68; PULSE 70; RESP 18; TEMP 36.1; O2SAT 98
[2020-01-17] MEDS: Glucerna Shake 120 ML LIQUID PO ×2 (17:35→21:28)
[2020-01-17 21:31] LABS: Bedside Glucose 264 mg/dL (70-110)
[2020-01-17] MEDS: Acetaminophen 500 MG Tablet 1000 MG PO (21:32)
[2020-01-17] MEDS: Mirtazapine 15 MG Tablet 7.5 MG PO (21:32)
[2020-01-17] MEDS: Atorvastatin Calcium 40 MG Tablet PO (21:32)
[2020-01-18 06:26] VITALS: BP 107/66; PULSE 70
[2020-01-18 06:30] VITALS: BP 107/66; PULSE 70
[2020-01-18] MEDS: Metoprolol(XL)Succ 25 MG Tablet PO (06:30)
[2020-01-18] MEDS: Clopidogrel Bisulfate 75 MG Tablet PO (06:30)
[2020-01-18] MEDS: Levothyroxine 75 MCG Tablet PO (06:30)
[2020-01-18] MEDS: Senna/Docusate Sodium 1 Tablet PO ×2 (06:30→17:17)
[2020-01-18] MEDS: SACUBITRIL/VALSARTAN 24/26 MG TABLET 1 EACH PO ×2 (06:30→17:17)
[2020-01-18] MEDS: Glucerna Shake 120 ML LIQUID PO ×4 (06:30→21:46)
[2020-01-18] MEDS: Pantoprazole Sodium 40 MG Tablet PO (06:30)
[2020-01-18] MEDS: Menthol/Lanolin/Calamine/Znox 113 GM Tube 1 APPLIC TOPICAL ×2 (06:31→21:49)
[2020-01-18] MEDS: Nystatin Powder 15gm Bottle 1 APPLIC TOPICAL ×2 (06:31→17:18)
[2020-01-18 06:41] LABS: Bedside Glucose 182 mg/dL (70-110)
[2020-01-18 07:09] LABS: Prothrombin Time (Protime)PT. 22.3 SECONDS (11.7-14.9)
[2020-01-18] MEDS: Gabapentin 100 MG Capsule PO ×2 (07:44→17:17)
[2020-01-18] MEDS: Allopurinol 100 MG Tablet PO (07:44)
[2020-01-18] MEDS: Amiodarone 200 MG Tablet PO (07:44)
[2020-01-18 14:11] VITALS: BP 124/71; PULSE 78; RESP 16; TEMP 36.6; O2SAT 99
[2020-01-18 21:26] LABS: Bedside Glucose 277 mg/dL (70-110)
[2020-01-18 21:32] VITALS: PULSE 70
[2020-01-18] MEDS: Mirtazapine 15 MG Tablet 7.5 MG PO (21:46)
[2020-01-18] MEDS: Atorvastatin Calcium 40 MG Tablet PO (21:46)
[2020-01-19] MEDS: Clopidogrel Bisulfate 75 MG Tablet PO (04:39)
[2020-01-19] MEDS: Pantoprazole Sodium 40 MG Tablet PO (04:39)
[2020-01-19] MEDS: Senna/Docusate Sodium 1 Tablet PO ×2 (04:39→17:40)
[2020-01-19 04:40] VITALS: BP 136/76; PULSE 71
[2020-01-19] MEDS: SACUBITRIL/VALSARTAN 24/26 MG TABLET 1 EACH PO ×2 (04:40→17:40)
[2020-01-19] MEDS: Metoprolol(XL)Succ 25 MG Tablet PO (04:40)
[2020-01-19] MEDS: Levothyroxine 75 MCG Tablet PO (04:40)
[2020-01-19] MEDS: Menthol/Lanolin/Calamine/Znox 113 GM Tube 1 APPLIC TOPICAL ×2 (04:41→21:14)
[2020-01-19] MEDS: Nystatin Powder 15gm Bottle 1 APPLIC TOPICAL ×2 (04:42→17:42)
[2020-01-19 06:16] LABS: Bedside Glucose 182 mg/dL (70-110)
[2020-01-19] MEDS: Allopurinol 100 MG Tablet PO (08:55)
[2020-01-19] MEDS: Gabapentin 100 MG Capsule PO ×2 (08:56→17:40)
[2020-01-19] MEDS: Amiodarone 200 MG Tablet PO (08:56)
[2020-01-19 10:00] VITALS: PULSE 73; RESP 16
[2020-01-19 13:41] VITALS: BP 120/72; PULSE 74; RESP 16; TEMP 36.4; O2SAT 98
[2020-01-19 21:06] LABS: Bedside Glucose 252 mg/dL (70-110)
[2020-01-19] MEDS: Atorvastatin Calcium 40 MG Tablet PO (21:12)
[2020-01-19] MEDS: Mirtazapine 15 MG Tablet 7.5 MG PO (21:13)
[2020-01-20] MEDS: Clopidogrel Bisulfate 75 MG Tablet PO (06:10)
[2020-01-20] MEDS: SACUBITRIL/VALSARTAN 24/26 MG TABLET 1 EACH PO (06:10)
[2020-01-20] MEDS: Levothyroxine 75 MCG Tablet PO (06:10)
[2020-01-20] MEDS: Menthol/Lanolin/Calamine/Znox 113 GM Tube 1 APPLIC TOPICAL ×2 (06:10→21:50)
[2020-01-20] MEDS: Nystatin Powder 15gm Bottle 1 APPLIC TOPICAL ×2 (06:10→17:25)
[2020-01-20 06:11] VITALS: BP 105/60; PULSE 71
[2020-01-20] MEDS: Pantoprazole Sodium 40 MG Tablet PO (06:11)
[2020-01-20] MEDS: Metoprolol(XL)Succ 25 MG Tablet PO (06:11)
[2020-01-20] MEDS: Senna/Docusate Sodium 1 Tablet PO ×2 (06:11→17:19)
[2020-01-20 06:25] LABS: Bedside Glucose 170 mg/dL (70-110)
[2020-01-20 07:00] LABS: Absolute Lymphocyte Count 0.93 X10^3/uL (0.83-4.51); Absolute Neutrophil Count 3.5 X10^3/uL (2.0-7.7); Basophil# 0.08 X10^3/uL; Basophil% 1.5 % (0-1); Eosinophil# 0.25 X10^3/uL; Eosinophils% 4.5 % (0-5); Hematocrit 39.7 % (40-54); Hemoglobin 13.1 g/dL (13.0-16.5); Lymphocyte # 0.93 X10^3/ul (4.0); Lymphocyte % 16.9 % (19-41); Mean Corpuscular Volume 91.1 fL (80-94); Mean Platelet Vol. 12.1 fl (6.2-12.0); Monocyte# 0.77 X10^3/uL; NRBC Flagged by Analyzer 0 % (0-5); Neutrophil # 3.47 X10^3/uL (2.7-7.7); Neutrophil % 62.9 % (47-70); Platelet Count 195 K/mm3 (150-450); RBC Distribution Width CV 15.9 % (11.6-14.6); RBC Distribution Width SD 53.6 fl (35.1-43.9); Red Blood Count 4.36 M/mm3 (4.6-6.2); White Blood Count 5.5 K/mm3 (4.4-11.0)
[2020-01-20 07:48] LABS: Anion Gap 4 (5-15); BUN 14 mg/dL (7-18); BUN/Creat Ratio 19.6 RATIO (10-20); Calcium,Total 9.3 mg/dL (8.5-10.1); Chloride 107 mmol/L (98-107); Creatinine, Serum 0.72 mg/dL (0.70-1.30); EST Glomerular Filtration Rate 112 mL/min (>60); Est Glom Filt Rate - Afr Amer 135 mL/min (>60); Estimated Creatinine Clearance 54.17 ml/min; Glucose 179 mg/dL (74-106); Sodium Level 136 mmol/L (136-145)
[2020-01-20] MEDS: Allopurinol 100 MG Tablet PO (08:26)
[2020-01-20] MEDS: Gabapentin 100 MG Capsule PO ×2 (08:26→17:20)
[2020-01-20] MEDS: Amiodarone 200 MG Tablet PO (08:26)
[2020-01-20 08:29] VITALS: BP 110/67; PULSE 74
[2020-01-20 14:16] VITALS: BP 108/59; PULSE 70; RESP 16; TEMP 37; O2SAT 98
[2020-01-20 21:10] LABS: Bedside Glucose 218 mg/dL (70-110)
[2020-01-20] MEDS: Atorvastatin Calcium 40 MG Tablet PO (21:51)
[2020-01-20] MEDS: Mirtazapine 15 MG Tablet 7.5 MG PO (21:51)
[2020-01-21 06:15] LABS: Bedside Glucose 154 mg/dL (70-110)
[2020-01-21 06:29] LABS: Prothrombin Time (Protime)PT. 22.2 SECONDS (11.7-14.9)
[2020-01-21] MEDS: Pantoprazole Sodium 40 MG Tablet PO (07:10)
[2020-01-21] MEDS: Levothyroxine 75 MCG Tablet PO (07:10)
[2020-01-21] MEDS: SACUBITRIL/VALSARTAN 49-51 MG TABLET 1 EACH PO ×2 (07:10→17:35)
[2020-01-21] MEDS: Senna/Docusate Sodium 1 Tablet PO ×2 (07:10→17:35)
[2020-01-21] MEDS: Clopidogrel Bisulfate 75 MG Tablet PO (07:10)
[2020-01-21 07:12] VITALS: BP 117/72; PULSE 70
[2020-01-21] MEDS: Metoprolol(XL)Succ 25 MG Tablet PO (07:12)
[2020-01-21] MEDS: Nystatin Powder 15gm Bottle 1 APPLIC TOPICAL ×2 (07:16→17:34)
[2020-01-21] MEDS: Menthol/Lanolin/Calamine/Znox 113 GM Tube 1 APPLIC TOPICAL ×2 (07:16→22:03)
[2020-01-21] MEDS: Allopurinol 100 MG Tablet PO (08:34)
[2020-01-21] MEDS: Amiodarone 200 MG Tablet PO (08:34)
[2020-01-21] MEDS: Gabapentin 100 MG Capsule PO (08:34)
[2020-01-21 08:38] VITALS: BP 119/60; PULSE 70
[2020-01-21 14:30] VITALS: BP 119/78; PULSE 88; RESP 16; TEMP 36.6; O2SAT 97
--- NOTE | 2020-01-21 15:07 | CASEMGMT ---
Social Work MOLST form completed with patient. Copy placed on chart. Erika Abad, CLINICAL SCIENCE LIAISON YIELD CLERK
[2020-01-21] MEDS: Acetaminophen 500 MG Tablet 1000 MG PO (20:38)
[2020-01-21] MEDS: Mirtazapine 15 MG Tablet 7.5 MG PO (20:39)
[2020-01-21] MEDS: Atorvastatin Calcium 40 MG Tablet PO (20:39)
[2020-01-21 22:06] LABS: Bedside Glucose 236 mg/dL (70-110)
[2020-01-22] MEDS: Menthol/Lanolin/Calamine/Znox 113 GM Tube 1 APPLIC TOPICAL ×2 (06:02→20:23)
[2020-01-22] MEDS: Nystatin Powder 15gm Bottle 1 APPLIC TOPICAL ×2 (06:02→17:57)
[2020-01-22 06:03] VITALS: BP 109/77; PULSE 86
[2020-01-22] MEDS: Clopidogrel Bisulfate 75 MG Tablet PO (06:03)
[2020-01-22] MEDS: Senna/Docusate Sodium 1 Tablet PO ×2 (06:03→17:53)
[2020-01-22] MEDS: SACUBITRIL/VALSARTAN 49-51 MG TABLET 1 EACH PO ×2 (06:03→17:53)
[2020-01-22] MEDS: Metoprolol(XL)Succ 25 MG Tablet PO (06:03)
[2020-01-22] MEDS: Levothyroxine 75 MCG Tablet PO (06:03)
[2020-01-22] MEDS: Pantoprazole Sodium 40 MG Tablet PO (06:03)
[2020-01-22 06:10] LABS: Bedside Glucose 173 mg/dL (70-110)
[2020-01-22] MEDS: Allopurinol 100 MG Tablet PO (08:31)
[2020-01-22] MEDS: Gabapentin 100 MG Capsule PO (08:31)
[2020-01-22] MEDS: Amiodarone 200 MG Tablet PO (08:31)
[2020-01-22 14:00] VITALS: BP 140/92; PULSE 91; RESP 18; TEMP 36.4; O2SAT 96
--- NOTE | 2020-01-22 17:50 | NURSING ---
This nurse is aware of Vital Signs that were taken this afternoon.
[2020-01-22] MEDS: Acetaminophen 500 MG Tablet 1000 MG PO (20:20)
[2020-01-22] MEDS: Mirtazapine 15 MG Tablet 7.5 MG PO (20:21)
[2020-01-22] MEDS: Atorvastatin Calcium 40 MG Tablet PO (20:22)
[2020-01-22 20:56] LABS: Bedside Glucose 283 mg/dL (70-110)
[2020-01-23 06:11] LABS: Bedside Glucose 151 mg/dL (70-110)
[2020-01-23] MEDS: Senna/Docusate Sodium 1 Tablet PO ×2 (06:19→17:59)
[2020-01-23] MEDS: Levothyroxine 75 MCG Tablet PO (06:19)
[2020-01-23] MEDS: Pantoprazole Sodium 40 MG Tablet PO (06:19)
[2020-01-23] MEDS: Clopidogrel Bisulfate 75 MG Tablet PO (06:19)
[2020-01-23] MEDS: SACUBITRIL/VALSARTAN 49-51 MG TABLET 1 EACH PO ×2 (06:19→17:58)
[2020-01-23] MEDS: Menthol/Lanolin/Calamine/Znox 113 GM Tube 1 APPLIC TOPICAL ×2 (06:20→20:59)
[2020-01-23] MEDS: Nystatin Powder 15gm Bottle 1 APPLIC TOPICAL ×2 (06:20→17:59)
[2020-01-23 06:21] VITALS: BP 103/65; PULSE 86
[2020-01-23] MEDS: Metoprolol(XL)Succ 25 MG Tablet PO (06:21)
[2020-01-23] MEDS: Amiodarone 200 MG Tablet PO (07:37)
[2020-01-23] MEDS: Gabapentin 100 MG Capsule PO (07:38)
[2020-01-23] MEDS: Allopurinol 100 MG Tablet PO (07:38)
--- NOTE | 2020-01-23 11:31 | NURSING ---
This nurse offered pt a ducolax supp for constipation that pt is complaining about. PT refused at this time. Offered warm prune juice, pt willing to try that. Warm prune juice given.
[2020-01-23 13:48] VITALS: BP 113/70; PULSE 87; RESP 14; TEMP 36.5; O2SAT 98
[2020-01-23] MEDS: Acetaminophen 500 MG Tablet 1000 MG PO (20:57)
[2020-01-23] MEDS: Mirtazapine 15 MG Tablet 7.5 MG PO (20:58)
[2020-01-23] MEDS: Atorvastatin Calcium 40 MG Tablet PO (20:58)
[2020-01-23 21:06] LABS: Bedside Glucose 295 mg/dL (70-110)
[2020-01-24] MEDS: Nystatin Powder 15gm Bottle 1 APPLIC TOPICAL ×2 (06:17→18:15)
[2020-01-24] MEDS: Menthol/Lanolin/Calamine/Znox 113 GM Tube 1 APPLIC TOPICAL ×2 (06:17→20:03)
[2020-01-24 06:18] VITALS: BP 114/70; PULSE 85
[2020-01-24] MEDS: SACUBITRIL/VALSARTAN 49-51 MG TABLET 1 EACH PO ×2 (06:18→18:13)
[2020-01-24] MEDS: Pantoprazole Sodium 40 MG Tablet PO (06:18)
[2020-01-24] MEDS: Clopidogrel Bisulfate 75 MG Tablet PO (06:18)
[2020-01-24] MEDS: Metoprolol(XL)Succ 25 MG Tablet PO (06:18)
[2020-01-24] MEDS: Levothyroxine 75 MCG Tablet PO (06:18)
[2020-01-24] MEDS: Senna/Docusate Sodium 1 Tablet PO ×2 (06:19→18:13)
[2020-01-24 06:36] LABS: Bedside Glucose 151 mg/dL (70-110)
[2020-01-24] MEDS: Allopurinol 100 MG Tablet PO (08:54)
[2020-01-24] MEDS: Gabapentin 100 MG Capsule PO (08:54)
[2020-01-24] MEDS: Amiodarone 200 MG Tablet PO (08:55)
[2020-01-24 10:00] VITALS: PULSE 70; RESP 16
[2020-01-24 15:11] VITALS: BP 98/68; PULSE 61; RESP 14; TEMP 36.2; O2SAT 94
[2020-01-24] MEDS: Atorvastatin Calcium 40 MG Tablet PO (20:02)
[2020-01-24] MEDS: Mirtazapine 15 MG Tablet 7.5 MG PO (20:02)
[2020-01-24] MEDS: Acetaminophen 500 MG Tablet 1000 MG PO (20:02)
[2020-01-24 21:05] LABS: Bedside Glucose 233 mg/dL (70-110)
[2020-01-25 05:22] VITALS: BP 97/56; PULSE 82
[2020-01-25] MEDS: Senna/Docusate Sodium 1 Tablet PO ×2 (05:22→15:59)
[2020-01-25] MEDS: Menthol/Lanolin/Calamine/Znox 113 GM Tube 1 APPLIC TOPICAL ×2 (05:22→21:28)
[2020-01-25] MEDS: SACUBITRIL/VALSARTAN 49-51 MG TABLET 1 EACH PO ×2 (05:22→15:59)
[2020-01-25] MEDS: Levothyroxine 75 MCG Tablet PO (05:22)
[2020-01-25] MEDS: Pantoprazole Sodium 40 MG Tablet PO (05:22)
[2020-01-25] MEDS: Clopidogrel Bisulfate 75 MG Tablet PO (05:22)
[2020-01-25] MEDS: Metoprolol(XL)Succ 25 MG Tablet PO (05:22)
[2020-01-25] MEDS: Nystatin Powder 15gm Bottle 1 APPLIC TOPICAL ×2 (05:23→16:00)
[2020-01-25 06:26] LABS: Bedside Glucose 158 mg/dL (70-110)
[2020-01-25 08:17] LABS: International Normalized Ratio 2.4; Prothrombin Time (Protime)PT. 25.4 SECONDS (11.7-14.9)
[2020-01-25] MEDS: Allopurinol 100 MG Tablet PO (08:18)
[2020-01-25] MEDS: Amiodarone 200 MG Tablet PO (08:18)
[2020-01-25 10:55] VITALS: PULSE 89; RESP 16; O2SAT 94
--- NOTE | 2020-01-25 13:09 | MDS.RN ---
Pain interview for tierra 01/26/20 completed.
[2020-01-25 15:05] VITALS: BP 125/67; PULSE 85; RESP 16; TEMP 36.4; O2SAT 98
[2020-01-25 21:11] LABS: Bedside Glucose 194 mg/dL (70-110)
[2020-01-25] MEDS: Acetaminophen 500 MG Tablet 1000 MG PO (21:24)
[2020-01-25] MEDS: Atorvastatin Calcium 40 MG Tablet PO (21:24)
[2020-01-25] MEDS: Mirtazapine 15 MG Tablet 7.5 MG PO (21:24)
[2020-01-26 06:10] LABS: Bedside Glucose 158 mg/dL (70-110)
[2020-01-26 06:12] VITALS: BP 104/62; PULSE 60
[2020-01-26] MEDS: SACUBITRIL/VALSARTAN 49-51 MG TABLET 1 EACH PO (06:12)
[2020-01-26] MEDS: Pantoprazole Sodium 40 MG Tablet PO (06:12)
[2020-01-26] MEDS: Metoprolol(XL)Succ 25 MG Tablet PO (06:12)
[2020-01-26] MEDS: Senna/Docusate Sodium 1 Tablet PO (06:12)
[2020-01-26] MEDS: Levothyroxine 75 MCG Tablet PO (06:12)
[2020-01-26] MEDS: Clopidogrel Bisulfate 75 MG Tablet PO (06:12)
[2020-01-26] MEDS: Nystatin Powder 15gm Bottle 1 APPLIC TOPICAL (06:15)
[2020-01-26] MEDS: Menthol/Lanolin/Calamine/Znox 113 GM Tube 1 APPLIC TOPICAL (06:16)
[2020-01-26] MEDS: Amiodarone 200 MG Tablet PO (07:32)
[2020-01-26] MEDS: Allopurinol 100 MG Tablet PO (07:32)
[2020-01-26 08:20] VITALS: RESP 18; O2SAT 97
[2020-01-26 08:35] VITALS: BP 99/61; PULSE 86; RESP 18; TEMP 36.3; O2SAT 97
--- NOTE | 2020-01-26 09:44 | NURSING ---
reviewed Dc instructions with pt & notified to call this procedure writer if she has any questions regarding instructions or medications.
--- NOTE | 2020-01-26 15:29 | CASEMGMT ---
Social Work Reviewed and agreed with social work chief internal auditor documentation on this date. Erika Abad, FOUNDRY ENGINEER EARLY YEARS TEACHER
--- NOTE | 2020-01-27 13:29 | CASEMGMT ---
Social Work Reviewed and agreed with social work graduate intern documentation on this date. Erika Abad, CABLE SPOOLER WAIST PLEATER
== END 2020-01-26 10:44 | disposition home health service (06) | DRG 178 ==
PROVIDERS: Admitting Provider Family Medicine Geriatric Medicine; PCP Family Medicine; Visit Provider Family Medicine Geriatric Medicine
DX: J86.9 Pyothorax without fistula (principal); I50.42 Chronic combined systolic (congestive) and diastolic (congestive) heart failure; I13.0 Hypertensive heart and chronic kidney disease with heart failure and stage 1 through stage 4 chronic kidney disease, or unspecified chronic kidney disease; I48.20 Chronic atrial fibrillation, unspecified; I25.10 Atherosclerotic heart disease of native coronary artery without angina pectoris; M1A.9XX0 Chronic gout, unspecified, without tophus (tophi); Z86.718 Personal history of other venous thrombosis and embolism; Z95.5 Presence of coronary angioplasty implant and graft; E78.5 Hyperlipidemia, unspecified; K21.9 Gastro-esophageal reflux disease without esophagitis; E03.9 Hypothyroidism, unspecified; E11.42 Type 2 diabetes mellitus with diabetic polyneuropathy; E55.9 Vitamin D deficiency, unspecified; N18.3 Chronic kidney disease, stage 3 (moderate); E11.22 Type 2 diabetes mellitus with diabetic chronic kidney disease; G47.33 Obstructive sleep apnea (adult) (pediatric); I25.2 Old myocardial infarction; Z95.1 Presence of aortocoronary bypass graft; Z95.810 Presence of automatic (implantable) cardiac defibrillator
CPT/HCPCS: 36415; 80048; 81001; 82962; 85025; 85610; 87086; 87088; 92507; 92523; 97110; 97116; 97162; 97166; 97530; 97535; 97802; J7030; A4216

== ENCOUNTER → 2020-02-04 | Outpatient (CLI) | payer MEDICARE, BC, SELFPAY ==
[2020-02-01 11:05] VITALS: BMI 27.3
[2020-02-04 16:47] LABS: Hematocrit 40.5 % (40-54); Hemoglobin 12.9 g/dL (13.0-16.5); Mean Corp Hgb Conc 31.9 g/dL (32-36); Mean Corpuscular Hgb 29.6 pg (27.0-32.0); Mean Corpuscular Volume 92.9 fL (80-94); Mean Platelet Vol. 12.3 fl (6.2-12.0); Platelet Count 252 K/mm3 (150-450); RBC Distribution Width CV 15.7 % (11.6-14.6); RBC Distribution Width SD 54.3 fl (35.1-43.9); Red Blood Count 4.36 M/mm3 (4.6-6.2); White Blood Count 5.5 K/mm3 (4.4-11.0)
[2020-02-04 17:11] LABS: ALB/GLOB Ratio 0.5 RATIO (0.9-2.4); AST(SGOT) 16 U/L (15-37); Alanine Aminotransfer ALT/SGPT 15 U/L (16-61); Albumin, Serum 2.5 g/dL (3.2-5.0); Alkaline Phosphatase 80 U/L (45-117); Anion Gap 6 (5-15); BUN 14 mg/dL (7-18); BUN/Creat Ratio 17.4 RATIO (10-20); Calcium,Total 8.9 mg/dL (8.5-10.1); Chloride 104 mmol/L (98-107); EST Glomerular Filtration Rate 98 mL/min (>60); Est Glom Filt Rate - Afr Amer 118 mL/min (>60); Globulin 4.7 g/dL (2.2-4.2); Glucose 107 mg/dL (74-106); Potassium 3.3 mmol/L (3.5-5.1); Protein, Total 7.2 g/dL (6.4-8.2); Sodium Level 140 mmol/L (136-145); Thyroid Stim Hormone (TSH) 5.97 uIU/mL (0.358-3.74)
[2020-02-04 17:19] LABS: Hemoglobin A1c 8.4 % (4.2-6.3)
[2020-02-04 17:42] LABS: BNP,B-Type NATRIURETIC PEPTIDE 257.2 pg/mL (0-100)
[2020-02-05 12:54] LABS: T4 Total, Thyroxin 11.3 ug/dL (4.5-12.1)
== END | disposition home or self-care (01) ==
LOC: LABSPEC 16:09
PROVIDERS: Nurse Practitioner Family; PCP Family Medicine; Referring Provider Internal Medicine Cardiovascular Disease; Visit Provider Internal Medicine Cardiovascular Disease
DX: J86.9 Pyothorax without fistula (principal); I25.10 Atherosclerotic heart disease of native coronary artery without angina pectoris; E11.22 Type 2 diabetes mellitus with diabetic chronic kidney disease; I13.0 Hypertensive heart and chronic kidney disease with heart failure and stage 1 through stage 4 chronic kidney disease, or unspecified chronic kidney disease; N18.9 Chronic kidney disease, unspecified; I50.9 Heart failure, unspecified; E03.9 Hypothyroidism, unspecified
CPT/HCPCS: 80053; 83036; 83880; 84436; 84443; 85027

== ENCOUNTER → 2020-02-05 17:01 | Outpatient (CLI) | payer MEDICARE, BC, SELFPAY ==
[2020-02-01 11:05] VITALS: BMI 27.3
[2020-02-05 17:56] LABS: Prothrombin Time (Protime)PT. 37.4 SECONDS (11.7-14.9)
[2020-02-05 18:18] LABS: International Normalized Ratio 3.8
[2020-02-08 11:10] LABS: Anion Gap 6 (5-15); BUN 15 mg/dL (7-18); BUN/Creat Ratio 14.2 RATIO (10-20); Calcium,Total 9.8 mg/dL (8.5-10.1); Chloride 100 mmol/L (98-107); Creatinine, Serum 1.06 mg/dL (0.70-1.30); EST Glomerular Filtration Rate 71 mL/min (>60); Est Glom Filt Rate - Afr Amer 86 mL/min (>60); Glucose 166 mg/dL (74-106); Potassium 3.7 mmol/L (3.5-5.1); Sodium Level 138 mmol/L (136-145)
[2020-02-08 11:32] LABS: International Normalized Ratio 2.4; Prothrombin Time (Protime)PT. 25.3 SECONDS (11.7-14.9)
== END ==
PROVIDERS: PCP Family Medicine; Visit Provider Internal Medicine Cardiovascular Disease
DX: I25.10 Atherosclerotic heart disease of native coronary artery without angina pectoris (principal); I13.0 Hypertensive heart and chronic kidney disease with heart failure and stage 1 through stage 4 chronic kidney disease, or unspecified chronic kidney disease; N18.9 Chronic kidney disease, unspecified; I50.9 Heart failure, unspecified; J86.9 Pyothorax without fistula; Z79.01 Long term (current) use of anticoagulants
CPT/HCPCS: 80048; 85610

== ENCOUNTER 2020-02-22 15:32 | Outpatient (RCR) | payer MEDICARE, BC, SELFPAY ==
[2020-02-01 11:05] VITALS: BMI 27.3
[2020-02-15 13:31] LABS: Prothrombin Time (Protime)PT. 21.8 SECONDS (11.7-14.9)
[2020-02-22 16:18] LABS: International Normalized Ratio 1.9; Prothrombin Time (Protime)PT. 21.5 SECONDS (11.7-14.9)
== END 2020-02-22 18:00 | disposition home or self-care (01) ==
LOC: HHLAB 15:32
PROVIDERS: PCP Family Medicine; Referring Provider Internal Medicine Cardiovascular Disease; Visit Provider Internal Medicine Cardiovascular Disease
DX: I25.10 Atherosclerotic heart disease of native coronary artery without angina pectoris (principal); J86.9 Pyothorax without fistula; I13.0 Hypertensive heart and chronic kidney disease with heart failure and stage 1 through stage 4 chronic kidney disease, or unspecified chronic kidney disease; N18.9 Chronic kidney disease, unspecified; I50.9 Heart failure, unspecified
CPT/HCPCS: 85610

== ENCOUNTER 2020-03-09 14:41 | Outpatient (RCR) | payer MEDICARE, BC, SELFPAY ==
[2020-02-01 11:05] VITALS: BMI 27.3
[2020-02-29 15:44] LABS: Anion Gap 5 (5-15); BUN 22 mg/dL (7-18); BUN/Creat Ratio 20.2 RATIO (10-20); Calcium,Total 9.6 mg/dL (8.5-10.1); Chloride 104 mmol/L (98-107); Creatinine, Serum 1.09 mg/dL (0.70-1.30); EST Glomerular Filtration Rate 69 mL/min (>60); Est Glom Filt Rate - Afr Amer 83 mL/min (>60); Glucose 144 mg/dL (74-106); Potassium 4.1 mmol/L (3.5-5.1); Sodium Level 137 mmol/L (136-145)
[2020-02-29 16:36] LABS: International Normalized Ratio 1.6; Prothrombin Time (Protime)PT. 18.4 SECONDS (11.7-14.9)
[2020-03-09 15:46] LABS: International Normalized Ratio 1.2; Prothrombin Time (Protime)PT. 14.3 SECONDS (11.7-14.9)
== END 2020-03-09 18:00 | disposition home or self-care (01) ==
LOC: LAB 14:41
PROVIDERS: Nurse Practitioner Family; PCP Family Medicine; Visit Provider Internal Medicine Cardiovascular Disease
DX: I48.0 Paroxysmal atrial fibrillation (principal); Z79.01 Long term (current) use of anticoagulants; E87.6 Hypokalemia; I50.9 Heart failure, unspecified
CPT/HCPCS: 36415; 80048; 85610

== ENCOUNTER 2020-04-02 11:36 | Outpatient (RCR) | payer MEDICARE, BC, SELFPAY ==
[2020-02-01 11:05] VITALS: BMI 27.3
[2020-03-19 09:27] LABS: International Normalized Ratio 1.2; Prothrombin Time (Protime)PT. 14.5 SECONDS (11.7-14.9)
[2020-04-02 12:39] LABS: International Normalized Ratio 2.5; Prothrombin Time (Protime)PT. 26.8 SECONDS (11.7-14.9)
== END 2020-04-02 18:00 | disposition home or self-care (01) ==
LOC: LAB 11:36
PROVIDERS: PCP Family Medicine; Referring Provider Internal Medicine Cardiovascular Disease; Visit Provider Internal Medicine Cardiovascular Disease
DX: I48.0 Paroxysmal atrial fibrillation (principal); Z79.01 Long term (current) use of anticoagulants
CPT/HCPCS: 36415; 85610

== ENCOUNTER 2020-04-14 09:08 | Observation (INO) | payer MEDICARE, BC, SELFPAY ==
[2020-02-01 11:05] VITALS: BMI 27.3
[2020-04-14] VITALS (9 sets, daily range): BP systolic 102–139; BP diastolic 50–84; PULSE 70–87; RESP 12–21; TEMP 36.2–36.8; O2SAT 96–97; BMI 29.0; BMI 28.0
--- NOTE | 2020-04-14 09:21 | EKG12_ITS ---
Test Reason : CP Blood Pressure : / mmHG Vent. Rate : 070 BPM Atrial Rate : 089 BPM P-R Int : 156 ms QRS Dur : 178 ms QT Int : 524 ms P-R-T Axes : 000 157 -22 degrees QTc Int : 565 ms AV dual-paced rhythm Biventricular pacemaker detected Abnormal ECG Confirmed by JEZ HASSAN ([id number]), editor at large EVELYN KAT ([id number]) on 04/18/2020 2:03:50 PM Referred By: AMBER Confirmed By:JEZ HASSAN
--- NOTE | 2020-04-14 09:28 | ED.VIS.GEN ---
History of Present Illness Chief Complaint: Chest Pain Informant: Patient, Family Narrative: Patient is an 79-year-old male with a past medical history of CAD with multiple stent placement who presents to the emergency department for chest pain. He describes it as a chest tightness with started this morning upon awaking. This was across his bilateral chest. Did not radiate to his neck or extremities. No associated nausea/vomiting or diaphoresis. He does have chronic shortness of breath which was not worsened by this episode. His chest pain was relieved after he took a nitro. He is currently asymptomatic. His states that he has fluid on his lungs and only 1 side is expanded. He is supposed to have this further worked up at [facility]. Is having any significant cough or fever/chills. No significant peripheral edema or calf swelling/leg pain. Denies any abdominal pain or back pain. Patient denies any smoking history. Past Medical History - Allergies and Home Meds Allergies/Adverse Reactions: Allergies Iodine and Iodide Containing Produc Adverse Reaction (Severe, Verified 04/14/20 09:11) Diarrhea metformin Adverse Reaction (Verified 04/14/20 09:11) Upset Stomach niacin Adverse Reaction (Verified 04/14/20 09:11) Other Primary Care Physician: Angel Lang MD [Primary Care Provider] - Prior records reviewed: Yes Surgical History: coronary bypass surgery - x 3., tonsillectomy, - - Pacemaker/AICD, tonsillectomy, PCI at [facility] in nov 2019 with FEDERICO to the SVG to the RCA, RF ablation Lives: Spouse/ Significant Other Smoking Status: Never smoker - Family History Maternal Family History: Family History (Last Reviewed 02/01/20 @ 13:07 by AUGUSTIN Meyers) Father Myocardial infarction Family History: Reports: High Cholesterol, Heart Disease, Hypertension Paternal Family History: Family History (Last Reviewed 02/01/20 @ 13:07 by AUGUSTIN Meyers) Father Myocardial infarction Family History: Reports: High Cholesterol, Heart Disease, Hypertension Review of Systems All systems negative except as indicated General: Denies: Chills, Fever, Sweats Eyes: Denies: Visual changes - bilaterally, Diplopia ENT: Denies: Rhinorrhea, Sore throat Cardiovascular: Reports: Chest pain - Resolved. Denies: Palpitations Respiratory: Reports: Dyspnea - Chronic, at baseline. Denies: Cough, Dyspnea on exertion Gastrointestinal: Denies: Abdominal pain, Nausea, Vomiting, Diarrhea, Melena, Hematochezia Genitourinary: Denies: Dysuria, Hematuria, Frequency Musculoskeletal: Denies: Back pain, Extremity Pain Skin: Denies: Rash, Wounds Neurological: Denies: Headache, Weakness, Numbness Physical Exam Vital Signs/Narrative: Vital Signs Temp Pulse Resp BP Pulse Ox 04/14/20 09:09 97.9 F 70 20 H 139/84 H 96 General: Well nourished, Well developed, No Acute Distress Head: Normocephalic, Atraumatic Eyes: Perrl, EOMI ENT: Moist mucous membranes, No rhinorrhea Neck: Supple, Nontender Cardiovascular: Regular rate, Regular rhythm, No murmurs, - - 2+ radial pulse bilateral Respiratory: No distress, CTA bilaterally, Chest nontender Abdomen: Soft, Nontender, Nondistended, Normal bowel sounds Back: Nontender, Normal Inspection Extremities: Nontender, No edema Skin: Normal color, No rash Neurological: Alert, Oriented x3, Cranial nerves II-XII grossly intact, Normal Strength, Normal Sensation Psychological: Normal affect, Normal Mood Diagnostic/Tx/Re-eval Chest X-Ray - ED: 1 View - Some increased left lower lung base markings. Otherwise no focal area of consolidation to make me suspicious for pneumonia. No pneumothorax. - Rhythm Strip Rhythm Strip: Sinus Rhythm - Rate of 70 bpm with a QRS of 178. Pacemaker present. No significant ST elevations or depressions appreciated. No T wave abnormalities. - Medical Decision Making Patient presents to the emergency department for an episode of chest tightness that resolved with nitro. He did take a baby aspirin prior to arrival. Does have significant cardiac and pulmonary issues occluding a stent as well as what sounds like a loculated pleural effusion from previous medical history. Will check basic lab work along with EKG and chest x-ray. Will give full dose of aspirin now currently if patient develops any more symptoms we will start him on a nitro drip. Patient has remained asymptomatic throughout ED stay. With history of multiple stents placed, multiple risk factors, as well as cardiac arrest in November will bring him into the hospital for further evaluation and management. He otherwise has been stable throughout emergency department stay. He understands and is agreeable with this plan. ED Disposition - Plan for ED Patient: Disposition: Acute Care Hospital [facility] Diagnosis: Chest pain, Coagulopathy Referrals: Angel Lang MD [Primary Care Provider] -
[2020-04-14 09:45] LABS: Absolute Lymphocyte Count 0.95 X10^3/uL (0.83-4.51); Absolute Neutrophil Count 5.3 X10^3/uL (2.0-7.7); Basophil# 0.07 X10^3/uL; Eosinophil# 0.33 X10^3/uL; Eosinophils% 4.6 % (0-5); Hematocrit 41.8 % (40-54); Hemoglobin 12.9 g/dL (13.0-16.5); Lymphocyte # 0.95 X10^3/ul (4.0); Lymphocyte % 13.2 % (19-41); Mean Corp Hgb Conc 30.9 g/dL (32-36); Mean Corpuscular Hgb 29.8 pg (27.0-32.0); Mean Corpuscular Volume 96.5 fL (80-94); Mean Platelet Vol. 11.5 fl (6.2-12.0); Monocyte# 0.49 X10^3/uL; Monocyte% 6.8 % (0-10); NRBC Flagged by Analyzer 0 % (0-5); Neutrophil % 73.7 % (47-70); Platelet Count 250 K/mm3 (150-450); RBC Distribution Width CV 16.4 % (11.6-14.6); RBC Distribution Width SD 59.4 fl (35.1-43.9); Red Blood Count 4.33 M/mm3 (4.6-6.2); White Blood Count 7.2 K/mm3 (4.4-11.0)
--- NOTE | 2020-04-14 09:47 | RAD_ITS ---
STUDY: X-RAY CHEST REASON FOR EXAM: Male, 79 years old. CHEST PAIN, HX MN AND CHF TECHNIQUE: Single AP portable view of the chest. COMPARISON: Comparison is made with prior examination dated December 26, 2019. FINDINGS: EKG electrodes are seen. Mild residual pleural-parenchymal changes are seen at the left lung base. Increased markings at the right lung base suggestive of a right basilar atelectasis and/or early infiltrate. This is superimposed on mild degree of CHF. Sternal cerclage wires and vascular clips are present from a prior sternotomy and coronary artery bypass graft procedure (CABG). A left-sided dual-chamber pacemaker is seen. Mild cardiomegaly. Normal mediastinum and dorene. Normal visualized pulmonary arteries. There is atherosclerotic calcification of the aortic arch with tortuosity. Normal visualized thoracic spine. Normal visualized ribs, clavicles, and shoulders. There is no demonstrated abnormality of the visualized soft tissue structures of the upper abdomen. RAD/Chest 1 View (Portable) IMPRESSION: Mild residual pleural parenchymal changes at the left lung base although this has improved as compared to prior study. Mild degree of increased markings at the right lung base with mild degree of vascular congestion. Electronically Signed: Vinnie Chen, at 10:23 EDT , Service support ,
[2020-04-14] MEDS: Aspirin 81 MG TAB.CHEW 243 MG PO (09:51)
[2020-04-14 09:54] LABS: Prothrombin Time (Protime)PT. 41.2 SECONDS (11.7-14.9)
[2020-04-14 09:55] LABS: Partial Thromboplast Time 61.2 Seconds (24.1-36.2)
[2020-04-14 09:56] LABS: International Normalized Ratio 4.3
[2020-04-14 10:29] LABS: Anion Gap 8 (5-15); BUN 32 mg/dL (7-18); BUN/Creat Ratio 21.1 RATIO (10-20); Calcium,Total 8.8 mg/dL (8.5-10.1); Chloride 106 mmol/L (98-107); Creatinine, Serum 1.52 mg/dL (0.70-1.30); EST Glomerular Filtration Rate 47 mL/min (>60); Est Glom Filt Rate - Afr Amer 57 mL/min (>60); Estimated Creatinine Clearance 35.64 ml/min; Glucose 245 mg/dL (74-106); Magnesium 2.4 mg/dL (1.6-2.6); Potassium 4.2 mmol/L (3.5-5.1); Sodium Level 140 mmol/L (136-145)
--- NOTE | 2020-04-14 10:50 | HP.PCM_ITS ---
Problem List (1) Atypical chest pain Status: Acute (2) Heart failure Status: Chronic Qualifiers: Heart failure type: systolic Comment: systolic with EF of 35% and diastolic dysfunction (3) Acute exacerbation of CHF (congestive heart failure) Status: Resolved (4) Lactic acidosis Status: Resolved (5) Physical debility Status: Acute Comment: Due to deconditioning from recent admission for PNA, CHF and hypotension followed by Large loculated left effusion with collapse of the left lung with placement of L thoracostomy tube for 1 week. (6) Supratherapeutic INR Status: Resolved (7) Macrocytic anemia Status: Acute (8) Loculated pleural effusion Status: Chronic Comment: left side with collapse of the LLL...did not expand with thoracostomy tube, even with lytic agent. (9) Atrial flutter Status: Chronic (10) Status post thoracostomy tube placement Status: Acute Comment: 12/14/19 - removed on 12/22/19 (11) History of PTCA Status: Acute Comment: 11/23/19 at [facility] for 90% stenosis of SVG to RCA with FEDERICO - Dr. Edward Oshea [facility] (12) Inanition Status: Acute (13) Severe malnutrition Status: Acute Comment: severe wt loss with moderate decrease on energy intake (14) Hyponatremia Status: Resolved (15) Debility Status: Acute (16) Empyema, left Status: Acute (17) Chronic combined systolic and diastolic CHF (congestive heart failure) Status: Chronic (18) Appetite loss Status: Chronic (19) Gout Status: Chronic (20) Atrial fibrillation Status: Chronic (21) Coronary artery disease Status: Chronic (22) Vitamin D deficiency Status: Chronic (23) Hypertension Status: Chronic Qualifiers: Hypertension type: essential hypertension Qualified Code(s): I10 - Essential (primary) hypertension (24) Hypothyroidism Status: Chronic (25) GERD (gastroesophageal reflux disease) Status: Chronic (26) Diabetic polyneuropathy Status: Chronic (27) Diabetes mellitus Status: Chronic (28) Obstructive sleep apnea Status: Chronic (29) Chest pain Status: Acute (30) Coagulopathy Status: Acute (31) History of coronary artery stent placement Status: Chronic Comment: PCI/stenting to SVG to RCA at [facility] on 11/23/2019; (32) Non-ST elevation (NSTEMI) myocardial infarction Status: Chronic Comment: elevated troponin to 0.192 on 11/27/19 - indeterminate, had just recently had a MECHANICAL ORDNANCE ASSEMBLER to the RCA at [facility] in early november (33) Presence of stent of bypass graft Status: Chronic Comment: PCI/FEDERICO to the SVG to RCA @[facility] 11/23/19 (34) 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 Status: Chronic Comment: March 2012 (35) Paroxysmal atrial fibrillation Status: Chronic (36) History of myocardial infarction Status: Chronic Comment: [place] in 1981 and 1983 (37) Type 2 diabetes mellitus Status: Chronic Qualifiers: Diabetes mellitus complication status: with kidney complications Chronic kidney disease stage: stage 3 (moderate) (38) Atrioventricular block Status: Chronic Comment: has a PM/AICD (39) Paroxysmal ventricular tachycardia Status: Chronic Comment: monomorphic - has AICD and is now on Amiodarone (40) Premature ventricular contraction Status: Chronic (41) Aortocoronary bypass status Status: Chronic Comment: CABG x3 - KO to diag, SVG to RCA and SVG to RCA 06/18/1996 (42) Ischemic cardiomyopathy Status: Chronic Comment: 35% EF (43) Atherosclerotic heart disease of [place] coronary artery without angina pectoris Status: Chronic Qualifiers: [place] vs. transplanted heart: [place] heart Qualified Code(s): I25.10 - Atherosclerotic heart disease of [place] coronary artery without angina pectoris Comment: CABG x3 - KO to diag, SVG to RCA and SVG to RCA 06/18/1996 (44) detention (current) use of anticoagulants Status: Chronic Comment: Warfarin (45) CKD (chronic kidney disease), stage III Status: Chronic (46) HLD (hyperlipidemia) Status: Chronic Qualifiers: Hyperlipidemia type: unspecified Qualified Code(s): E78.5 - Hyperlipidemia, unspecified History of Present Illness Date of Admission: 04/14/20 Chief Complaint: Chest pain on 04/14/2020 in a.m. The patient is a 79 year old M with multiple comorbidities as listed above including heart failure, coronary artery disease with CABG three-vessel, ischemic cardiomyopathy status post AICD came to ER with chest pain started at about 6 AM today while he was sitting in the chair. Chest pain was anteriorly from right to left felt like tightness without radiation. There is mild associated shortness of breath but patient is chronically short of breath secondary to history of loculated pleural effusion with collapse and atelectasis/volume loss left lower lung. Patient has very limited lung function and has follow-up with [facility] for pulmonary and kidney function test next week for possible left lung surgery, exact proposed surgery unclear. In ER, no fever. Blood pressure in normal range, pulse ox 96% on room air. EKG shows atrial sensed ventricular paced rhythm. Repeat EKG does not show changes of ischemia. Chest pain/tightness lasted for about an hour. BNP elevated intermittently 6, troponin normal. Chest x-ray intermittently reviewed and shows mild residual pleural?parenchymal changes with atelectasis of left lung base, although has improved from prior studies along with increased marking of right lung base [] Past Medical History Past Medical History (Chronic Problems): Chronic Problems (Last Reviewed 02/01/20 @ 13:07 by Juan Villafuerte NP-C) Heart failure (Chronic) systolic with EF of 35% and diastolic dysfunction Loculated pleural effusion (Chronic) left side with collapse of the LLL...did not expand with thoracostomy tube, even with lytic agent. Atrial flutter (Chronic) Chronic combined systolic and diastolic CHF (congestive heart failure) (Chronic) Appetite loss (Chronic) Gout (Chronic) Atrial fibrillation (Chronic) Coronary artery disease (Chronic) Vitamin D deficiency (Chronic) Hypertension (Chronic) Hypothyroidism (Chronic) GERD (gastroesophageal reflux disease) (Chronic) Diabetic polyneuropathy (Chronic) Diabetes mellitus (Chronic) Obstructive sleep apnea (Chronic) History of coronary artery stent placement (Chronic) PCI/stenting to SVG to RCA at [facility] on 11/23/2019; Non-ST elevation (NSTEMI) myocardial infarction (Chronic) elevated troponin to 0.192 on 11/27/19 - indeterminate, had just recently had a MECHANICAL ORDNANCE ASSEMBLER to the RCA at [facility] in early november Presence of stent of bypass graft (Chronic ~11/23/19) PCI/FEDERICO to the SVG to RCA @[facility] 11/23/19 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 (Chronic ~04/20/02) March 2012 Paroxysmal atrial fibrillation (Chronic) History of myocardial infarction (Chronic) [place] in 1981 and 1983 Type 2 diabetes mellitus (Chronic) Atrioventricular block (Chronic) has a PM/AICD Paroxysmal ventricular tachycardia (Chronic) monomorphic - has AICD and is now on Amiodarone Premature ventricular contraction (Chronic) Aortocoronary bypass status (Chronic ~06/18/96) CABG x3 - KO to diag, SVG to RCA and SVG to RCA 06/18/1996 Ischemic cardiomyopathy (Chronic) 35% EF Atherosclerotic heart disease of [place] coronary artery without angina pectoris (Chronic) CABG x3 - KO to diag, SVG to RCA and SVG to RCA 06/18/1996 [place] (current) use of anticoagulants (Chronic) Warfarin CKD (chronic kidney disease), stage III (Chronic) HLD (hyperlipidemia) (Chronic) Medical History: Medical History (Last Reviewed 02/01/20 @ 13:07 by Juan Villafuerte FLATTENING PRESS OPERATOR-C) Non-ST elevation (NSTEMI) myocardial infarction (Chronic) I21.4 elevated troponin to 0.192 on 11/27/19 - indeterminate, had just recently had a MECHANICAL ORDNANCE ASSEMBLER to the RCA at [facility] in early november Presence of stent of bypass graft (Chronic) Onset Date: ~11/23/19 Z95.828 PCI/FEDERICO to the SVG to RCA @[facility] 11/23/19 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 (Chronic) Onset Date: ~04/20/02 Z95.810 March 2012 Paroxysmal atrial fibrillation (Chronic) I48.0 History of myocardial infarction (Chronic) I25.2 [place] in 1981 and 1983 Type 2 diabetes mellitus (Chronic) E11.9 Atrioventricular block (Chronic) I44.30 has a PM/AICD Paroxysmal ventricular tachycardia (Chronic) I47.2 monomorphic - has AICD and is now on Amiodarone Premature ventricular contraction (Chronic) I49.3 Ischemic cardiomyopathy (Chronic) I25.5 35% EF Atherosclerotic heart disease of [place] coronary artery without angina pectoris (Chronic) I25.10 CABG x3 - KO to diag, SVG to RCA and SVG to RCA 06/18/1996 met[place] (current) use of anticoagulants (Chronic) Z79.01 Warfarin CKD (chronic kidney disease), stage III (Chronic) HLD (hyperlipidemia) (Chronic) E78.5 Hypothyroidism E03.9 YUSUF (obstructive sleep apnea) G47.33 Gout M10.9 Neuropathy G62.9 History of DVT (deep vein thrombosis) (Resolved) Z86.718 Upper Extremity History of cardiac pacemaker Onset Date: ~07/14/01 Z95.0 Allergies Iodine and Iodide Containing Produc Adverse Reaction (Severe, Verified 04/14/20 09:11) Diarrhea metformin Adverse Reaction (Verified 04/14/20 09:11) Upset Stomach niacin Adverse Reaction (Verified 04/14/20 09:11) Other Home Medications: Ambulatory Orders Medication Instructions Recorded Allopurinol [Zyloprim] 100 mg PO DAILY 11/27/19 Clopidogrel Bisulfate [Clopidogrel] 75 mg PO DAILY 11/27/19 Levothyroxine [Synthroid] 75 mcg PO DAILY 11/27/19 Nitroglycerin 0.4 mg SL Q5M MDD 3 11/27/19 Pantoprazole Sodium [Protonix] 40 mg PO DAILY 11/27/19 Rosuvastatin Calcium [Crestor] 20 mg PO DAILY 11/27/19 Metoprolol Succinate [Toprol Xl] 50 mg PO DAILY #30 01/15/20 aspirin 81 mg tablet,delayed 81 mg PO DAILY 02/01/20 release cholecalciferol (vitamin D3) 100 4,000 unit PO DAILY 02/01/20 mcg (4,000 unit) capsule folic acid 1 mg tablet 2 mg PO DAILY 02/01/20 spironolactone 25 mg tablet 25 mg PO DAILY #90 tab 02/05/20 sacubitril 49 mg-valsartan 51 mg 1 tab PO BID #60 tab 02/25/20 tablet amiodarone 200 mg tablet 200 mg PO DAILY #90 tab 02/26/20 calcium citrate 200 mg (950 mg) 200 mg PO DAILY 03/04/20 tablet fenofibrate micronized 200 mg 200 mg PO DAILY 03/04/20 capsule furosemide 40 mg tablet 40 mg PO BID tab 03/04/20 gabapentin 400 mg capsule 400 mg PO TID cap 03/04/20 glimepiride 4 mg tablet 4 mg PO DAILY 03/04/20 Insulin Glargine [Lantus SoloStar 14 units SUBCUT QHS 04/14/20 Pen] Warfarin Sodium [Coumadin] 1 mg PO THFRSA 04/14/20 Warfarin [Coumadin (PBKC)] 2 mg PO SUMOTUWE 04/14/20 Surgical History: Surgical History (Last Reviewed 02/01/20 @ 13:07 by AUGUSTIN Meyers) Aortocoronary bypass status (Chronic) Onset Date: ~06/18/96 Z95.1 CABG x3 - KO to diag, SVG to RCA and SVG to RCA 06/18/1996 History of cardiac radiofrequency ablation Onset Date: ~06/12/07 Z98.890 for atrial flutter @ [facility] 06/12/07 History of implantable cardioverter-defibrillator (ICD) placement Onset Date: ~07/14/01 Z95.810 History of tonsillectomy Z90.89 Surgical History: coronary bypass surgery - x 3., tonsillectomy, - - Pacemaker/A ICD, tonsillectomy, PCI at [facility] in nov 2019 with FEDERICO to the SVG to the RCA, RF ablation Psychiatric History: No pertinent psych hx Lives: Spouse/ Significant Other Smoking Status: Never smoker - *Family History Maternal Family History: Family History (Last Reviewed 02/01/20 @ 13:07 by AUGUSTIN Meyers) Father Myocardial infarction History Items: High Cholesterol, Heart Disease, Hypertension Paternal Family History: Family History (Last Reviewed 02/01/20 @ 13:07 by AUGUSTIN Meyers) Father Myocardial infarction History Items: High Cholesterol, Heart Disease, Hypertension Review of Systems Constitutional: Denies: Chills, Fever, Weight Change HEENT: Denies: Head Aches, Sinus Congestion, Sinus Drainage Cardiovascular: Reports: Chest Pain, Chest Tightness. Denies: Palpitations Respiratory: Denies: Cough, Shortness of breath at rest, Sputum production Gastrointestinal: Denies: Abdominal Pain, Nausea, Vomiting Genitourinary: Denies: Dysuria, Frequency, Nocturia, Retention, Urgency Musculoskeletal: Reports: Joint Pain - Chronic.. Denies: Joint Tenderness Skin: Denies: Rash, Wounds Neurological: Reports: Balance problems - Uses 4-prong cane. Denies: Focal weakness, Numbness, Tingling Psychiatric: Denies: Anxiety, Depression, Homicidal Ideations, Suicidal Ideations Hematologic/ Lymphatic: Denies: Easy Bruising, Easy Bleeding VTE Information - Inpt Only VTE Present on Admission: No VTE Mechan Device Prophylaxis: None VTE Pharm Prophylaxis ordered?: Yes Reason prophylaxis not ordered:: Procedure Not Indicated - Supratherapeutic INR Patient Problems: Active and Suspected Problems (Last Reviewed 02/01/20 @ 13:07 by AUGUSTIN Meyers) Chest pain (Acute) Coagulopathy (Acute) Atypical chest pain (Acute) - Physical Exam Vitals/I&O's: Vital Signs Temp Pulse Resp BP Pulse Ox 97.9 F 70 20 H 139/84 H 96 04/14/20 09:09 04/14/20 09:09 04/14/20 09:09 04/14/20 09:09 04/14/20 09:09 Oxygen Flow Rate (L/min) 2 Oxygen Delivery Method Nasal Cannula Weight: 184 lb 15.485 oz Body Mass Index (BMI) 29.0 Finger Stick Blood Glucose 190 General: Alert, Oriented x3, Cooperative HEENT: Atraumatic, PERRLA, EOMI, Normocephalic Neck: Supple, No JVD, Negative Carotid Bruits Lungs: Diminished - Air entry diminished in left lung base as compared to right lung., - - Dyspnea on exertion Cardiovascular: Regular Rhythm, Normal S1, Normal S2, No murmurs, - - Paced rhythm on quality assurance monitor, left subclavicular AICD present. Abdomen: Bowel Sounds Present, Soft, Non Tender, Non-Distended Extremities: No edema, Capillary Refill Less than 3 Seconds Skin: No rashes, No breakdown Musculoskeletal: No Tenderness to Palpation of Joints or Extremities, Arthritic Changes Neurological: Cranial nerves II-XII grossly intact, Deep Tendon Reflexes 2+/4 and Symmetrical, Neuro grossly intact Psych/Mental Status: Normal Affect, Appropriate Laboratory Results 04/14/20 09:34: WBC 7.2, RBC 4.33 L, Hgb 12.9 L, Hct 41.8, MCV 96.5 H, MCH 29.8, MCHC 30.9 L, RDW Std Deviation 59.4 H, RDW Coeff of Gavino 16.4 H, Plt Count 250, MPV 11.5, Immature Gran % (Auto) 0.700, Neut % (Auto) 73.7 H, Lymph % (Auto) 13.2 L, [place] % (Auto) 6.8, Eos % (Auto) 4.6, Baso % (Auto) 1.0, Absolute Neuts (auto) 5.3, Absolute Lymphs (auto) 0.95, Nucleated RBC % 0 04/14/20 09:34: Sodium 140, Potassium 4.2, Chloride 106, Carbon Dioxide 26.0, Anion Gap 8, BUN 32 H, Creatinine 1.52 H, Estim Creat Clear Calc 35.64, Est GFR (MDRD) Af Amer 57 L, Est GFR (MDRD) Non-Af 47 L, BUN/Creatinine Ratio 21.1 H, Glucose 245 H, Calcium 8.8, Magnesium 2.4, Troponin I 0.032 04/14/20 09:34: PT 41.2 H, INR 4.3 H*, APTT 61.2 H Assessment/Plan All Active Problems (Last Reviewed 02/01/20 @ 13:07 by Juan Villafuerte, FLATTENING PRESS OPERATOR-C) Acute exacerbation of CHF (congestive heart failure) (Resolved) Lactic acidosis (Resolved) Physical debility (Acute) Supratherapeutic INR (Resolved) Macrocytic anemia (Acute) Status post thoracostomy tube placement (Acute) History of PTCA (Acute) Inanition (Acute) Severe malnutrition (Acute) Hyponatremia (Resolved) Debility (Acute) Empyema, left (Acute) Chest pain (Acute) Coagulopathy (Acute) Atypical chest pain (Acute) FILIPE (acute kidney injury) (Resolved) Acute respiratory failure with hypoxia (Resolved) Hemoptysis (Resolved) History of DVT (deep vein thrombosis) (Resolved) Pneumonia (Resolved) Severe sepsis (Resolved) The patient is a 79 year old M with multiple comorbidities as listed above including heart failure, coronary artery disease with CABG three-vessel, ischemic cardiomyopathy status post AICD came to ER with chest pain started at about 6 AM today while he was sitting in the chair. Chest pain was anteriorly from right to left felt like tightness without radiation. There is mild associated shortness of breath but patient is chronically short of breath secondary to history of loculated pleural effusion with collapse and atelectasis/volume loss left lower lung. Patient has very limited lung function and has follow-up with [facility] for pulmonary and kidney function test next week for possible left lung surgery, exact proposed surgery unclear. In ER, no fever. Blood pressure in normal range, pulse ox 96% on room air. EKG shows atrial sensed ventricular paced rhythm. Repeat EKG does not show changes of ischemia. Chest pain/tightness lasted for about an hour. BNP elevated intermittently 6, troponin normal. Chest x-ray intermittently reviewed and shows mild residual pleural?parenchymal changes with atelectasis of left lung base, although has improved from prior studies along with increased marking of right lung base 1. Atypical chest pain, possible pleuritic or musculoskeletal rule out acute coronary syndrome: Patient has history of chronic systolic and diastolic combined heart failure with EF 35% with ischemic cardiomyopathy, coronary artery disease status post three-vessel CABG, status post AICD. 2 serial troponin enzymes are negative. Repeat EKG did not show change. Patient recent echo in January 2020 EF 35% with evidence of diastolic dysfunction. Left atrium severely enlarged. Patient had a stress test in November 2018 which shows large anterior wall, apex inferior wall infarct. Subsequently had cardiac cath in [facility] in F 2019 which showed severe diffuse mid RCA 90% stenosis. PDA collaterals to occluded LAD. SVG to RCA 90% mid segment, KO to LAD patent. Left circumflex mild 30%. Discussed with the automobile or truck rental dispatcher Dr. Wilkinson whom he follows an outpatient. He agrees with follow-up troponins but no plan for stress, echo or cardiac cath as he recently had it. This was discussed with the patient and his near the bedside. continue on aspirin, statin, fenofibrate, lasix. [] 2 chronic systolic diastolic CHF, EF 35%, ischemic cardiomyopathy, on Lasix 40 mg twice daily, will resume from tomorrow a.m. as creatinine is high. 3. Left lung loculated pleural effusion with history of pneumonia, volume loss and atelectasis recent pneumonia in November 2019: Patient had long duration of antibiotic Augmentin in the November 2019. 4. Paroxysmal atrial fibrillation, continue on amiodarone, INR is supratherapeutic, will hold coumadin 5. Acute on chronic kidney disease stage III probably cardiorenal disease: Lasix is held. Creatinine is elevated to 1.09- 1.5. Baseline 1.0. BUN also increased from baseline 22-32. 6. Type 2 DM: Accu-Chek SHS cover with a log sliding scale. Home dose of Lantus 14 subcutaneous at bedtime continued. 7. YUSUF on cpap 8. DVT PPx-supratherapeutic, Coumadin held, repeat INR in a.m. Living will/advanced directive/end of life care: Patient does have living will or advanced directive. After discussion of procedures involved with full code, DNR CC arrest and DNR CC, the patient and his opted for DNR-CC Arrest with no intubation Patient does not want artificial life support including intubation, tube feed, ventilator and/chest compression, central venous catheter, vasopressor and DC shock if needed DNR CC arrest. Total time spent in [id number] encounter in discussion of advanced directive 16 minutes. Inpatient E&M: 33356 Init Hosp L3 Procedures: 06547 Advncd Care Plan 30 Min
--- NOTE | 2020-04-14 10:51 | NURSING ---
DR LATIF FOR DR BAE
--- NOTE | 2020-04-14 10:58 | NURSING ---
PCU STEP DOWN OBS CP SALOMON
--- NOTE | 2020-04-14 11:02 | NURSING ---
[id number] room assigned to supervisor patching 115 pcu
--- NOTE | 2020-04-14 11:48 | EKG12_ITS ---
Test Reason : Blood Pressure : / mmHG Vent. Rate : 070 BPM Atrial Rate : 051 BPM P-R Int : 156 ms QRS Dur : 176 ms QT Int : 526 ms P-R-T Axes : -47 158 -25 degrees QTc Int : 568 ms AV dual-paced rhythm Biventricular pacemaker detected Abnormal ECG Confirmed by BLANCA DUNCAN, DELMA ([id number]), social media editor EVELYN KAT ([id number]) on 04/20/2020 10:43:20 AM Referred By: SALOMON Confirmed By:DELMA RIOS MD
[2020-04-14] MEDS: Clopidogrel Bisulfate 75 MG Tablet PO (13:55)
[2020-04-14] MEDS: Gabapentin 400 MG Capsule PO ×2 (13:55→17:04)
[2020-04-14] MEDS: Amiodarone 200 MG Tablet PO (13:55)
[2020-04-14 14:11] LABS: BNP,B-Type NATRIURETIC PEPTIDE 886.3 pg/mL (0-100)
--- NOTE | 2020-04-14 17:05 | CHAPLAIN ---
Type of Pastoral Visit _x__ Initial Visit ___ Follow-up Visit ___ On-call Visit ___ General Patient Visit ___ Spiritual Assessment ___ Family Conference ___ Bereavement ___ Rapid Response ___ Code Blue ___ Other (describe below) Pastoral Care Referral From _x__ Patient _x__ Family ___ Nurse ___ Physician ___ Mixer Operator ___ Route Service Representative ___ Other (describe below) Sacrament/Intervention _x__ Active listening ___ Anointing ___ Moravian ___ Bereavement ___ Communion ___ Karin exploration ___ ___ Life review ___ Prayer ___ Reconciliation ___ Sacrament of Sick _x__ Supportive presence ___ Wedding ___ Other (describe below) Pastoral Comments
[2020-04-14 17:11] LABS: Bedside Glucose 48 mg/dL (70-110)
[2020-04-14] MEDS: 0.9% Normal Saline 1,000 ML 50 ML IV (17:13)
[2020-04-14 17:56] LABS: Bedside Glucose 109 mg/dL (70-110)
[2020-04-14] MEDS: Atorvastatin Calcium 40 MG Tablet PO (23:00)
[2020-04-14] MEDS: SACUBITRIL/VALSARTAN 24/26 MG TABLET 1 EACH PO (23:01)
[2020-04-14] MEDS: Acetaminophen 325 MG Tablet 650 MG PO (23:05)
[2020-04-14] MEDS: Insulin Lispro 100 UNIT/ML INSULN.PEN SC (23:06)
[2020-04-15 00:05] LABS: Bedside Glucose 157 mg/dL (70-110)
[2020-04-15 02:48] VITALS: PULSE 70
[2020-04-15 05:00] VITALS: BP 98/64; PULSE 70; RESP 13; TEMP 36.4; O2SAT 98
[2020-04-15] MEDS: Levothyroxine 75 MCG Tablet PO (05:11)
[2020-04-15 07:04] LABS: Absolute Lymphocyte Count 1.13 X10^3/uL (0.83-4.51); Absolute Neutrophil Count 3.4 X10^3/uL (2.0-7.7); Basophil# 0.04 X10^3/uL; Basophil% 0.7 % (0-1); Eosinophil# 0.29 X10^3/uL; Eosinophils% 5.2 % (0-5); Hematocrit 37.1 % (40-54); Hemoglobin 11.8 g/dL (13.0-16.5); Lymphocyte # 1.13 X10^3/ul (4.0); Lymphocyte % 20.4 % (19-41); Mean Corp Hgb Conc 31.8 g/dL (32-36); Mean Corpuscular Hgb 30.5 pg (27.0-32.0); Mean Corpuscular Volume 95.9 fL (80-94); Mean Platelet Vol. 11.3 fl (6.2-12.0); Monocyte# 0.63 X10^3/uL; Monocyte% 11.4 % (0-10); NRBC Flagged by Analyzer 0 % (0-5); Neutrophil # 3.43 X10^3/uL (2.7-7.7); Neutrophil % 61.9 % (47-70); Platelet Count 211 K/mm3 (150-450); RBC Distribution Width SD 58.7 fl (35.1-43.9); Red Blood Count 3.87 M/mm3 (4.6-6.2); White Blood Count 5.5 K/mm3 (4.4-11.0)
[2020-04-15 07:12] LABS: International Normalized Ratio 4.8
[2020-04-15 07:24] VITALS: O2SAT 94
[2020-04-15 07:26] LABS: Bedside Glucose 43 mg/dL (70-110)
[2020-04-15 07:26] LABS: Bedside Glucose 64 mg/dL (70-110)
[2020-04-15 07:39] LABS: Anion Gap 4 (5-15); BUN 25 mg/dL (7-18); BUN/Creat Ratio 25.2 RATIO (10-20); Calcium,Total 8.4 mg/dL (8.5-10.1); Chloride 110 mmol/L (98-107); Cholesterol 142 mg/dL (200); Creatinine, Serum 0.99 mg/dL (0.70-1.30); EST Glomerular Filtration Rate 77 mL/min (>60); Est Glom Filt Rate - Afr Amer 93 mL/min (>60); Estimated Creatinine Clearance 54.71 ml/min; Glucose 51 mg/dL (74-106); High Density Lipoprotein 34 mg/dL; Potassium 3.9 mmol/L (3.5-5.1); Sodium Level 141 mmol/L (136-145); Thyroid Stim Hormone (TSH) 7.67 uIU/mL (0.358-3.74); Triglycerides 92 mg/dL; Very Low Density Lipoprotein 18 mg/dL (5-40)
[2020-04-15] MEDS: Gabapentin 400 MG Capsule PO (08:06)
[2020-04-15] MEDS: Aspirin E.C. 81 MG Tablet PO (08:06)
[2020-04-15] MEDS: Amiodarone 200 MG Tablet PO (08:06)
[2020-04-15] MEDS: Folic Acid 1 MG Tablet 2 MG PO (08:06)
[2020-04-15] MEDS: Allopurinol 100 MG Tablet PO (08:06)
[2020-04-15 08:32] VITALS: PULSE 79
--- NOTE | 2020-04-15 09:24 | PCM.DC ---
- Discharge Diagnoses Current Active Problems: Current Active and Chronic Problems (Last Reviewed 02/01/20 @ 13:07 by SOLOMON MeyersC) Chest pain (Acute) Coagulopathy (Acute) Atypical chest pain (Acute) You will use the following diet at home:: Calorie/Carbohydrate Controlled (specify 1200, 1400, etc) - 1800 ADA diet, Cardiac Your food should be the consistency of: Regular Discharge Activity: May Not Drive Weight Bearing Status: Weight bearing as tolerated Call your doctor if you observe: Fever of 101 or Higher, Coldness, Increased Pain, Inability to urinate, Inability to have a bowel movement, Shortness of breath, Dizziness, Fainting spells, Swelling in the ankles, Chest pain, Prolonged hiccoughing, Increased palpitations (irregular heartbeat) Additional Instructions: Follow-up [facility] for pulmonary and renal evaluation for proposed left lung surgery next week. Hold Coumadin. Repeat INR on 04/18/2020 and adjust INR accordingly Allergies/Adverse Reactions: Allergies Iodine and Iodide Containing Produc Adverse Reaction (Severe, Verified 04/14/20 09:11) Diarrhea metformin Adverse Reaction (Verified 04/14/20 09:11) Upset Stomach niacin Adverse Reaction (Verified 04/14/20 09:11) Other Medications to take at Discharge Allopurinol [Zyloprim] 100 mg PO DAILY 11/27/19 Clopidogrel Bisulfate [Clopidogrel] 75 mg PO DAILY 11/27/19 Levothyroxine [Synthroid] 75 mcg PO DAILY 11/27/19 Nitroglycerin 0.4 mg SL Q5M MDD 3 11/27/19 Pantoprazole Sodium [Protonix] 40 mg PO DAILY 11/27/19 Rosuvastatin Calcium [Crestor] 20 mg PO DAILY 11/27/19 Metoprolol Succinate [Toprol Xl] 50 mg PO DAILY #30 01/15/20 aspirin 81 mg tablet,delayed release 81 mg PO DAILY 02/01/20 cholecalciferol (vitamin D3) 100 mcg (4,000 unit) capsule 4,000 unit PO DAILY 02/01/20 folic acid 1 mg tablet 2 mg PO DAILY 02/01/20 spironolactone 25 mg tablet 25 mg PO DAILY #90 tab 02/05/20 amiodarone 200 mg tablet 200 mg PO DAILY #90 tab 02/26/20 calcium citrate 200 mg (950 mg) tablet 200 mg PO DAILY 03/04/20 fenofibrate micronized 200 mg capsule 200 mg PO DAILY 03/04/20 furosemide 40 mg tablet 40 mg PO BID tab 03/04/20 gabapentin 400 mg capsule 400 mg PO TID cap 03/04/20 glimepiride 4 mg tablet 4 mg PO DAILY 03/04/20 Warfarin Sodium [Coumadin] 1 mg PO THFRSA 04/14/20 Insulin Glargine [Lantus SoloStar Pen] 8 units SUBCUT QHS #0 04/15/20 Sacubitril/Valsartan 49-51 mg [Entresto 49 mg-51 mg Tablet] 0.5 tab PO BID #60 tab 04/15/20 Warfarin [Coumadin] 2 mg PO SUMOTUWE #0 04/15/20 Primary Care Physician: Angel Lang MD [Primary Care Provider] - Please follow up with your Primary Care Physician in: in 2 weeks Test Results: Test results from this visit will be discussed in further detail at your follow-up appointment, if applicable. Please Follow Up With: Juan Manuel Wilkinson MD When: in 4 weeks
--- NOTE | 2020-04-15 09:27 | PCM.DC.SUM ---
Discharge Date and Diagnosis Date of Admission: 04/14/20 Date of Discharge: 04/15/20 - Primary Discharge Diagnosis Acute Problems: Active Problems (Last Reviewed 02/01/20 @ 13:07 by AUGUSTIN Meyers) Chest pain (Acute) Coagulopathy (Acute) Atypical chest pain (Acute) - Secondary Discharge Diagnosis Chronic Problems: Chronic Problems (Last Reviewed 02/01/20 @ 13:07 by AUGUSTIN Meyers) Heart failure (Chronic) systolic with EF of 35% and diastolic dysfunction Loculated pleural effusion (Chronic) left side with collapse of the LLL...did not expand with thoracostomy tube, even with lytic agent. Atrial flutter (Chronic) Chronic combined systolic and diastolic CHF (congestive heart failure) (Chronic) Appetite loss (Chronic) Gout (Chronic) Atrial fibrillation (Chronic) Coronary artery disease (Chronic) Vitamin D deficiency (Chronic) Hypertension (Chronic) Hypothyroidism (Chronic) GERD (gastroesophageal reflux disease) (Chronic) Diabetic polyneuropathy (Chronic) Diabetes mellitus (Chronic) Obstructive sleep apnea (Chronic) History of coronary artery stent placement (Chronic) PCI/stenting to SVG to RCA at [facility] on 11/23/2019; Non-ST elevation (NSTEMI) myocardial infarction (Chronic) elevated troponin to 0.192 on 11/27/19 - indeterminate, had just recently had a CENTRAL SUPPLY ASSISTANT to the RCA at [facility] in early november Presence of stent of bypass graft (Chronic ~11/23/19) PCI/FEDERICO to the SVG to RCA @[facility] 11/23/19 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 (Chronic ~04/20/02) March 2012 Paroxysmal atrial fibrillation (Chronic) History of myocardial infarction (Chronic) [place] in 1981 and 1983 Type 2 diabetes mellitus (Chronic) Atrioventricular block (Chronic) has a PM/AICD Paroxysmal ventricular tachycardia (Chronic) monomorphic - has AICD and is now on Amiodarone Premature ventricular contraction (Chronic) Aortocoronary bypass status (Chronic ~06/18/96) CABG x3 - KO to diag, SVG to RCA and SVG to RCA 06/18/1996 Ischemic cardiomyopathy (Chronic) 35% EF Atherosclerotic heart disease of [place] coronary artery without angina pectoris (Chronic) CABG x3 - KO to diag, SVG to RCA and SVG to RCA 06/18/1996 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 Patient has very limited lung function and has follow-up with [facility] for pulmonary and kidney function test next week for possible left lung surgery, exact proposed surgery unclear. EKG shows atrial sensed ventricular paced rhythm. Repeat EKG does not show changes of ischemia. Chest x-ray intermittently reviewed and shows mild residual pleural?parenchymal changes with atelectasis of left lung base, although has improved from prior studies along with increased marking of right lung base 1. Atypical chest pain, possible pleuritic or musculoskeletal rule out acute coronary syndrome: Patient has history of chronic systolic and diastolic combined heart failure with EF 35% with ischemic cardiomyopathy, coronary artery disease status post three-vessel CABG, status post AICD. Patient serial troponins were negative. Repeat EKG did not show change. Patient recent echo in January 2020 EF 35% with evidence of diastolic dysfunction. Left atrium severely enlarged. Patient had a stress test in November 2018 which shows large anterior wall, apex inferior wall infarct. Subsequently had cardiac cath in [facility] in November 2019 which showed severe diffuse mid RCA 90% stenosis. PDA collaterals to occluded LAD. SVG to RCA 90% mid segment, KO to LAD patent. Left circumflex mild 30%. Discussed with the mobile phlebotomist Dr. Wilkinson whom he follows an outpatient. continue on aspirin, statin, fenofibrate. Lasix was held as patient had acute kidney injury on CKD as mentioned below. 2 chronic systolic diastolic CHF, EF 35%, ischemic cardiomyopathy, on Lasix 40 mg twice daily, will resume from tomorrow a.m. as creatinine is high. 3. Left lung loculated pleural effusion with history of pneumonia, volume loss and atelectasis recent pneumonia in November 2019: Patient had long duration of antibiotic Augmentin in the November 2019. Follow-up chest x-ray shows improvement in the aeration of left lung, with mild residual pleural-parenchymal changes left at the left lung base. 4. Paroxysmal atrial fibrillation, continue on amiodarone, INR is supratherapeutic, will hold coumadin 5. Acute on chronic kidney disease stage III probably cardiorenal disease: Lasix is held. Creatinine is elevated to 1.09- 1.5. Baseline 1.0. BUN also increased from baseline 22-32. Patient was treated with normal saline 50 mill per hour. Lasix was resumed. Acute kidney injury resolved. 6. Type 2 DM: Accu-Chek SHS cover with a log sliding scale. Home dose of Lantus 14 subcutaneous at bedtime continued. 7. YUSUF on cpap 8. DVT PPx-supratherapeutic, Coumadin held, PT/INR shows 4.8. Patient was advised to follow-up INR on 04/18/[address] Wilkinson. Prescription for INR check was given. Discharge medication reconciliation done. Discharge follow-up instructions completed. Discharge process discussed with the patient and all questions were answered to patient's satisfaction. Follow-up pulmonary, [facility] for further follow-up. Total time spent, exact 35 minutes on discharge meds reconciliation, examination, coordination of care with nurses and ancillary staff, review of imaging and blood test and discussion with the patient on follow-up instructions Objective: Seen and examined. Patient heart rate and blood pressure is normal. No hypoxia, tachypnea. No chest pain or shortness of breath. Physical exam General: Alert, Oriented x3, Cooperative HEENT: Atraumatic, PERRLA, EOMI, Normocephalic Neck: Supple, No JVD, Negative Carotid Bruits Lungs: Air entry mild diminished in left lung base as compared to right lung. No crepitation/rhonchi Cardiovascular: Regular Rhythm, Normal S1, Normal S2, No murmurs, - - Paced rhythm on director of user experience, left subclavicular AICD present. Abdomen: Bowel Sounds Present, Soft, Non Tender, Non-Distended Extremities: No edema, Capillary Refill Less than 3 Seconds Skin: No rashes, No breakdown Musculoskeletal: No Tenderness to Palpation of Joints or Extremities, Arthritic Changes Neurological: Cranial nerves II-XII grossly intact, Deep Tendon Reflexes 2+/4 and Symmetrical, Neuro grossly intact Psych/Mental Status: Normal Affect, Appropriate - Physical Exam Vitals/I&O's: Vital Signs Temp Pulse Resp BP Pulse Ox 97.6 F L 79 13 98/64 94 04/15/20 05:00 04/15/20 08:32 04/15/20 05:00 04/15/20 05:00 04/15/20 07:24 Oxygen Flow Rate (L/min) 2 Oxygen Delivery Method Nasal Cannula Weight: 177 lb 0.499 oz Body Mass Index (BMI) 28.0 Finger Stick Blood Glucose 190 Intake and Output for Last 24 Hours 04/13/20 04/14/20 04/15/20 23:59 23:59 23:59 Intake Total 290 / 290 0 / 0 Output Total 120 / 120 Balance 290 / 290 -120 / -120 Laboratory Results 04/14/20 09:34: WBC 7.2, RBC 4.33 L, Hgb 12.9 L, Hct 41.8, MCV 96.5 H, MCH 29.8, MCHC 30.9 L, RDW Std Deviation 59.4 H, RDW Coeff of Gavino 16.4 H, Plt Count 250, MPV 11.5, Immature Gran % (Auto) 0.700, Neut % (Auto) 73.7 H, Lymph % (Auto) 13.2 L, Putnam % (Auto) 6.8, Eos % (Auto) 4.6, Baso % (Auto) 1.0, Absolute Neuts (auto) 5.3, Absolute Lymphs (auto) 0.95, Nucleated RBC % 0 04/14/20 09:34: Sodium 140, Potassium 4.2, Chloride 106, Carbon Dioxide 26.0, Anion Gap 8, BUN 32 H, Creatinine 1.52 H, Estim Creat Clear Calc 35.64, Est GFR (MDRD) Af Amer 57 L, Est GFR (MDRD) Non-Af 47 L, BUN/Creatinine Ratio 21.1 H, Glucose 245 H, Calcium 8.8, Magnesium 2.4, Troponin I 0.032 04/14/20 09:34: PT 41.2 H, INR 4.3 H*, APTT 61.2 H 04/14/20 09:34: B-Natriuretic Peptide 886.3 H 04/14/20 12:52: Troponin I 0.030 04/14/20 15:23: Troponin I 0.022 04/14/20 16:51: POC Glucose 48 L 04/14/20 17:46: POC Glucose 109 04/14/20 22:57: POC Glucose 157 H 04/15/20 06:35: Sodium 141, Potassium 3.9, Chloride 110 H, Carbon Dioxide 27.0, Anion Gap 4 L, BUN 25 H, Creatinine 0.99, Estim Creat Clear Calc 54.71, Est GFR (MDRD) Af Amer 93, Est GFR (MDRD) Non-Af 77, BUN/Creatinine Ratio 25.2 H, Glucose 51 L, Calcium 8.4 L, Triglycerides 92, Cholesterol 142, LDL Cholesterol 90, VLDL Cholesterol 18, HDL Cholesterol 34 L, TSH 7.67 H 04/15/20 06:35: WBC 5.5, RBC 3.87 L, Hgb 11.8 L, Hct 37.1 L, MCV 95.9 H, MCH 30.5, MCHC 31.8 L, RDW Std Deviation 58.7 H, RDW Coeff of Gavino 17.0 H, Plt Count 211, MPV 11.3, Immature Gran % (Auto) 0.400, Neut % (Auto) 61.9, Lymph % (Auto) 20.4, Putnam % (Auto) 11.4 H, Eos % (Auto) 5.2 H, Baso % (Auto) 0.7, Absolute Neuts (auto) 3.4, Absolute Lymphs (auto) 1.13, Nucleated RBC % 0 04/15/20 06:35: PT 45.0 H, INR 4.8 H* 04/15/20 06:51: POC Glucose 43 L* 04/15/20 07:17: POC Glucose 64 L Current Medications Acetaminophen (Tylenol) 650 mg PO Q6H PRN PRN PRN Reason: Pain Score 1-10/Temp > 100.7 F Last Admin: 04/14/20 23:05 Dose: 650 mg Documented by: Albuterol Sulfate (Ventolin Aerosols) 2.5 mg INHALATION Q2H PRN PRN PRN Reason: SOB/Wheezing Allopurinol (Zyloprim) 100 mg PO DAILY [facility] Last Admin: 04/15/20 08:06 Dose: 100 mg Documented by: Amiodarone HCl (Cordarone) 200 mg PO DAILY [facility] Last Admin: 04/15/20 08:06 Dose: 200 mg Documented by: Aspirin (Ecotrin) 81 mg PO DAILY@0800 [facility] Last Admin: 04/15/20 08:06 Dose: 81 mg Documented by: Atorvastatin Calcium (Lipitor) 40 mg PO QHS [facility] Last Admin: 04/14/20 23:00 Dose: 40 mg Documented by: Cholecalciferol (Vitamin D (25mcg)) 4,000 unit PO DAILY [facility] Last Admin: 04/15/20 08:06 Dose: 4,000 unit Documented by: Clopidogrel Bisulfate (Plavix) 75 mg PO DAILY [facility] Last Admin: 04/14/20 13:55 Dose: 75 mg Documented by: Dextrose (D50w Syringe) 0 gm IV X1 PRN; Protocol PRN Reason: Hypoglycemia Fenofibrate (Tricor) 145 mg PO DAILY [facility] Folic Acid (Folic Acid) 2 mg PO DAILY@0800 [facility] Last Admin: 04/15/20 08:06 Dose: 2 mg Documented by: Gabapentin (Neurontin) 400 mg PO TIDCM [facility] Last Admin: 04/15/20 08:06 Dose: 400 mg Documented by: Glucagon () 1 mg IM .X1 PRN PRN Reason: Hypoglycemia Insulin Glargine (Lantus (Bkc)) 14 units SC QHS [facility] Last Admin: 04/14/20 23:05 Dose: 14 u Documented by: Insulin Human Lispro (Humalog Kwikpen (Bk)) 0 unit SC [facility]; Protocol Last Admin: 04/15/20 07:00 Dose: Not Given Documented by: Levothyroxine Sodium (Synthroid) 75 mcg PO DAILY@0600 [facility] Last Admin: 04/15/20 05:11 Dose: 75 mcg Documented by: Melatonin (Melatonin) 3 mg PO QHS PRN PRN PRN Reason: INSOMNIA Metoprolol Succinate (Toprol Xl (Beta Tiesha)) 50 mg PO DAILY [facility] Morphine Sulfate () 2 mg IV Q3H PRN PRN PRN Reason: Pain Score 6-10/10 Nitroglycerin (Nitrostat) 0.4 mg SUBLINGUAL Q5M PRN PRN Reason: CARDIAC/CHEST PAIN Oxycodone HCl (Oxyir) 5 mg PO Q4H PRN PRN PRN Reason: Pain Score 4-5/10 Pantoprazole Sodium (Protonix) 40 mg PO DAILY [facility] Prochlorperazine Edisylate (Compazine Iv) 5 mg IV Q4H PRN PRN PRN Reason: Breakthrough Nausea/Vomiting Sacubitril/Valsartan (Entresto 24 Mg-26 Mg Tablet) 1 each PO BID [facility] Last Admin: 04/14/20 23:01 Dose: 1 each Documented by: Senna/Docusate Sodium (Senokot-S, Sharron-Colace) 2 tablet PO BID PRN PRN PRN Reason: Constipation Sodium Chloride () 10 - 40 ml IV UD PRN PRN Reason: SALINE FLUSH Discharge Activity: May Not Drive Weight Bearing Status: Weight bearing as tolerated Call your doctor if you observe: Fever of 101 or Higher, Coldness, Increased Pain, Inability to urinate, Inability to have a bowel movement, Shortness of breath, Dizziness, Fainting spells, Swelling in the ankles, Chest pain, Prolonged hiccoughing, Increased palpitations (irregular heartbeat) Home Medications: Medications to take at Discharge Allopurinol [Zyloprim] 100 mg PO DAILY 11/27/19 Clopidogrel Bisulfate [Clopidogrel] 75 mg PO DAILY 11/27/19 Levothyroxine [Synthroid] 75 mcg PO DAILY 11/27/19 Nitroglycerin 0.4 mg SL Q5M MDD 3 11/27/19 Pantoprazole Sodium [Protonix] 40 mg PO DAILY 11/27/19 Rosuvastatin Calcium [Crestor] 20 mg PO DAILY 11/27/19 Metoprolol Succinate [Toprol Xl] 50 mg PO DAILY #30 01/15/20 aspirin 81 mg tablet,delayed release 81 mg PO DAILY 02/01/20 cholecalciferol (vitamin D3) 100 mcg (4,000 unit) capsule 4,000 unit PO DAILY 02/01/20 folic acid 1 mg tablet 2 mg PO DAILY 02/01/20 spironolactone 25 mg tablet 25 mg PO DAILY #90 tab 02/05/20 amiodarone 200 mg tablet 200 mg PO DAILY #90 tab 02/26/20 calcium citrate 200 mg (950 mg) tablet 200 mg PO DAILY 03/04/20 fenofibrate micronized 200 mg capsule 200 mg PO DAILY 03/04/20 furosemide 40 mg tablet 40 mg PO BID tab 03/04/20 gabapentin 400 mg capsule 400 mg PO TID cap 03/04/20 glimepiride 4 mg tablet 4 mg PO DAILY 03/04/20 Warfarin Sodium [Coumadin] 1 mg PO THFRSA 04/14/20 Insulin Glargine [Lantus SoloStar Pen] 8 units SUBCUT QHS #0 04/15/20 Sacubitril/Valsartan 49-51 mg [Entresto 49 mg-51 mg Tablet] 0.5 tab PO BID #60 tab 04/15/20 Warfarin [Coumadin] 2 mg PO SUMOTUWE #0 04/15/20 Other Amb Orders: Prothrombin Time w/INR Time Frame: 04/18/20, Facility: [facility], Location: Laboratory Primary Care Physician: Angel Lang MD [Primary Care Provider] - Please follow up with your Primary Care Physician in: in 2 weeks Please Follow Up With: Juan Manuel Wilkinson MD When: in 4 weeks Medical Necessity - Tobacco Use Smoking Status: Never smoker Tobacco Use: Non-smoker Meaningful Use Info Meaningful Use Diagnoses (Choose all that apply): None applicable OBSV E&M: 15039 Observation care discharge
[2020-04-15] MEDS: SACUBITRIL/VALSARTAN 24/26 MG TABLET 1 EACH PO (10:26)
[2020-04-15] MEDS: Clopidogrel Bisulfate 75 MG Tablet PO (10:26)
[2020-04-15] MEDS: Pantoprazole Sodium 40 MG Tablet PO (10:27)
[2020-04-15 10:28] VITALS: BP 112/68; PULSE 70
[2020-04-15] MEDS: Fenofibrate 145 MG Tablet PO (10:28)
[2020-04-15] MEDS: Metoprolol(XL)Succ 50 MG Tablet PO (10:28)
[2020-04-15 11:10] LABS: Bedside Glucose 135 mg/dL (70-110)
[2020-04-15 11:45] VITALS: BP 112/68; PULSE 70; RESP 16; TEMP 36.6; O2SAT 95
[2020-04-19 07:30] LABS: Bedside Glucose 187 mg/dL (70-110)
== END 2020-04-15 09:26 | disposition home or self-care (01) ==
LOC: ED 11:19 → PCU 13:05
PROVIDERS: Admitting Provider Internal Medicine; Emergency Provider Emergency Medicine; PCP Family Medicine; Visit Provider Internal Medicine
DX: R07.89 Other chest pain (principal); D68.9 Coagulation defect, unspecified; I25.10 Atherosclerotic heart disease of native coronary artery without angina pectoris; N17.9 Acute kidney failure, unspecified; R06.02 Shortness of breath; I50.42 Chronic combined systolic (congestive) and diastolic (congestive) heart failure; M10.9 Gout, unspecified; K21.9 Gastro-esophageal reflux disease without esophagitis; E11.42 Type 2 diabetes mellitus with diabetic polyneuropathy; G47.33 Obstructive sleep apnea (adult) (pediatric); I25.2 Old myocardial infarction; I48.0 Paroxysmal atrial fibrillation; E11.22 Type 2 diabetes mellitus with diabetic chronic kidney disease; E78.5 Hyperlipidemia, unspecified; I13.0 Hypertensive heart and chronic kidney disease with heart failure and stage 1 through stage 4 chronic kidney disease, or unspecified chronic kidney disease; N18.3 Chronic kidney disease, stage 3 (moderate); I25.5 Ischemic cardiomyopathy; Z95.1 Presence of aortocoronary bypass graft; Z79.899 Other long term (current) drug therapy; Z79.02 Long term (current) use of antithrombotics/antiplatelets; Z79.82 Long term (current) use of aspirin; Z79.01 Long term (current) use of anticoagulants; Z79.4 Long term (current) use of insulin; Z95.810 Presence of automatic (implantable) cardiac defibrillator; Z86.718 Personal history of other venous thrombosis and embolism
CPT/HCPCS: 36415; 71045; 80048; 80061; 82962; 83735; 83880; 84443; 84484; 85025; 85610; 85730; 93005; 97161; 97165; 99218; 99251; 99285; J7030; A4216; G0378; G0463

== ENCOUNTER 2020-06-18 11:45 | Outpatient (RCR) | payer MEDICARE, BC, SELFPAY ==
[2020-02-01 11:05] VITALS: BMI 27.3
[2020-05-05 13:10] VITALS: BMI 28.5
[2020-06-18 12:50] LABS: International Normalized Ratio 2.1; Prothrombin Time (Protime)PT. 22.7 SECONDS (11.7-14.9)
== END 2020-06-18 18:00 | disposition home or self-care (01) ==
LOC: LAB 11:45
PROVIDERS: PCP Family Medicine; Referring Provider Internal Medicine Cardiovascular Disease; Visit Provider Internal Medicine Cardiovascular Disease
DX: I48.0 Paroxysmal atrial fibrillation (principal); Z79.01 Long term (current) use of anticoagulants
CPT/HCPCS: 36415; 85610

== ENCOUNTER 2020-07-08 16:32 | Emergency (ER) | payer MEDICARE, BC, SELFPAY ==
[2020-05-05 13:10] VITALS: BMI 28.5
[2020-07-08 16:35] VITALS: BP 147/91; PULSE 70; RESP 15; TEMP 36.3; O2SAT 97; BMI 26.6
--- NOTE | 2020-07-08 17:46 | CT_ITS ---
STUDY: CT ABDOMEN AND PELVIS WITHOUT CONTRAST REASON FOR EXAM: Male, 79 years old. ABD SWELLING. -- HX:CHF,HTN,DIABETES,COPD,A-FIB,HYPOTHYROID,CKD STAGE 3,DVT -- SURGERY:STENTSMCABG,PACER RADIATION DOSAGE (If Supplied By Facility): CTDIvol = ( 14.91 ) mGy, DLP = ( 793.44 ) mGycm TECHNIQUE: Transaxial images were obtained from the dome of the diaphragm to the symphysis pubis without oral contrast, and without intravenous contrast. Sagittal and coronal images were reconstructed. Individualized dose optimization techniques were used for this CT. COMPARISON: Prior exam of 12/01/2019 FINDINGS: Reduced pleural effusion at the left lung base substantial improvement in aeration of the left lower lobe still with numerous platelike areas of atelectasis or scarring. ICD present. Coronary and myocardial calcifications are unchanged. Stable subcentimeter cyst of the superior right liver. Otherwise unremarkable liver. 1 small gallstone in the gallbladder neck with a nondistended gallbladder. There are multiple benign calcified granulomata of the spleen. Pancreatic atrophy. Normal bilateral adrenal glands. Stable right renal atrophy and a stable cyst in the lower pole of the right kidney. Negative for hydronephrosis or stones. Stable atrophy of the left kidney without hydronephrosis or stones. Nondistended stomach. Nondistended small bowel. Moderate stool present throughout the colon without distention. Minimal diverticulosis without evidence of acute diverticulitis. The appendix is visualized and appears normal. There is diffuse atherosclerotic calcification of the abdominal aorta, without a demonstrated aneurysm. Normal inferior vena cava. Normal retroperitoneum. Mildly distended urinary bladder with a relatively small volume bladder with mild elevation of the bladder base by prostate enlargement. Minimal fatty left inguinal hernia. Degenerative changes of the lumbar spine with demineralized osseous structures. CT/Abdomen/Pelvis without Cont IMPRESSION: No acute bowel related findings. Negative for evidence of obstruction, perforation or inflammatory bowel changes. Stool-filled colon. Minimal diverticulosis without evidence of acute diverticulitis. A normal appendix is identified. Stable subcentimeter cyst of the liver. One gallstone present in a nondistended gallbladder. Calcified granuloma of the spleen. Pancreatic atrophy. All findings are stable from prior exam. Mild renal atrophy bilaterally. Stable simple cyst of the right kidney. Negative for hydronephrosis or stones. Mild bladder distention and mild elevation of the bladder base by prostate enlargement. Minimal left fatty inguinal hernia. Atherosclerotic changes of the aorta without aneurysmal dilatation. Decreased left pleural effusion. Substantial reexpansion of the left lower lobe still with many platelike areas of atelectasis or scarring. Electronically Signed: Yas Nance MD at 18:51 EDT , Service support ,
--- NOTE | 2020-07-08 17:46 | ED.VIS.GEN ---
History of Present Illness Chief Complaint: Edema Informant: Patient, Family Narrative: She presents the emergency department stating that he is taking on water and that his abdomen feels swollen. He had difficulty buckling his pants today and needed to switch to a larger size. The patient has a history of congestive heart failure. His who myself and the staff know quite well notes that his feet were swollen a couple days ago but they are better. He is not experiencing any abdominal pain. His breathing is unchanged. He is on Coumadin. - Past Medical History (1) Coagulopathy Status: Chronic (2) Empyema, left Status: Chronic (3) History of PTCA Status: Chronic Comment: 11/23/19 at [facility] for 90% stenosis of SVG to RCA with FEDERICO - Dr. Edward Oshea [facility] (4) Macrocytic anemia Status: Chronic (5) Aortocoronary bypass status Status: Chronic Comment: CABG x3 - KO to diag, SVG to RCA and SVG to RCA 06/18/1996 (6) Atrial fibrillation Status: Chronic (7) Atrial flutter Status: Chronic (8) 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 Status: Chronic Comment: March 2012 (9) CKD (chronic kidney disease), stage III Status: Chronic (10) Diabetes mellitus Status: Chronic (11) Diabetic polyneuropathy Status: Chronic (12) GERD (gastroesophageal reflux disease) Status: Chronic (13) Gout Status: Chronic (14) HLD (hyperlipidemia) Status: Chronic (15) Non-ST elevation (NSTEMI) myocardial infarction Status: Chronic Comment: elevated troponin to 0.192 on 11/27/19 - indeterminate, had just recently had a PHARMACY ASSOCIATE to the RCA at [facility] in early november Past Medical History - Allergies and Home Meds Allergies/Adverse Reactions: Allergies Iodine and Iodide Containing Produc Adverse Reaction (Severe, Verified 05/05/20 13:16) Diarrhea metformin Adverse Reaction (Verified 05/05/20 13:16) Upset Stomach niacin Adverse Reaction (Verified 05/05/20 13:16) Other Primary Care Physician: Angel Lang MD [Primary Care Provider] - Surgical History: coronary bypass surgery - x 3., tonsillectomy, - - Pacemaker/AICD, tonsillectomy, PCI at [facility] in nov 2019 with FEDERICO to the SVG to the RCA, RF ablation Smoking Status: Never smoker - Family History Maternal Family History: Family History (Last Reviewed 05/05/20 @ 13:15 by Juan Villafuerte FERMENTER HELPER, FERMENTER HELPER-C) Father Myocardial infarction Family History: Reports: High Cholesterol, Heart Disease, Hypertension Paternal Family History: Family History (Last Reviewed 05/05/20 @ 13:15 by Juan Villafuerte NP, FERMENTER HELPER-C) Father Myocardial infarction Family History: Reports: High Cholesterol, Heart Disease, Hypertension Review of Systems General: Denies: Chills, Fever, Sweats Eyes: Denies: Visual changes - bilaterally, Diplopia ENT: Denies: Rhinorrhea, Sore throat Cardiovascular: Denies: Chest pain, Palpitations Respiratory: Denies: Dyspnea, Cough, Dyspnea on exertion Gastrointestinal: Reports: - - Abdominal swelling. Denies: Abdominal pain, Nausea, Vomiting, Diarrhea, Melena, Hematochezia Genitourinary: Denies: Dysuria, Hematuria, Frequency Musculoskeletal: Reports: Swelling. Denies: Back pain, Extremity Pain Skin: Denies: Rash, Wounds Neurological: Denies: Headache, Weakness, Numbness Physical Exam Vital Signs/Narrative: Vital Signs Temp Pulse Resp BP Pulse Ox 07/08/20 16:35 97.3 F L 70 15 147/91 H 97 Inital Vital Signs reviewed: Yes General: Well nourished, Well developed, No Acute Distress Head: Normocephalic, Atraumatic Eyes: Perrl, EOMI ENT: Moist mucous membranes, No rhinorrhea Neck: Supple, Nontender Cardiovascular: Regular rate, Regular rhythm, No murmurs Respiratory: No distress, CTA bilaterally, Chest nontender Abdomen: Soft, Nontender, Nondistended, Normal bowel sounds Back: Nontender, Normal Inspection Extremities: Nontender, No edema Skin: Normal color, No rash Neurological: Alert, Oriented x3, Cranial nerves II-XII grossly intact, Normal Strength, Normal Sensation Psychological: Normal affect, Normal Mood Diagnostic/Tx/Re-eval Clinical Impression(s) from Imaging Studies Abdomen/Pelvis CT 07/08/20 17:46 IMPRESSION: No acute bowel related findings. Negative for evidence of obstruction, perforation or inflammatory bowel changes. Stool-filled colon. Minimal diverticulosis without evidence of acute diverticulitis. A normal appendix is identified. Stable subcentimeter cyst of the liver. One gallstone present in a nondistended gallbladder. Calcified granuloma of the spleen. Pancreatic atrophy. All findings are stable from prior exam. Mild renal atrophy bilaterally. Stable simple cyst of the right kidney. Negative for hydronephrosis or stones. Mild bladder distention and mild elevation of the bladder base by prostate enlargement. Minimal left fatty inguinal hernia. Atherosclerotic changes of the aorta without aneurysmal dilatation. Decreased left pleural effusion. Substantial reexpansion of the left lower lobe still with many platelike areas of atelectasis or scarring. Electronically Signed: Yas Nance MD at 18:51 EDT , Service support , Laboratory Last Values WBC 5.1 K/mm3 (4.4-11.0) 07/08/20 17:50 RBC 4.22 M/mm3 (4.6-6.2) L 07/08/20 17:50 Hgb 13.5 g/dL (13.0-16.5) 07/08/20 17:50 Hct 41.6 % (40-54) 07/08/20 17:50 MCV 98.6 fL (80-94) H 07/08/20 17:50 MCH 32.0 pg (27.0-32.0) 07/08/20 17:50 MCHC 32.5 g/dL (32-36) 07/08/20 17:50 RDW Std Deviation 55.4 fl (35.1-43.9) H 07/08/20 17:50 RDW Coeff of Gavino 15.2 % (11.6-14.6) H 07/08/20 17:50 Plt Count 241 K/mm3 (150-450) 07/08/20 17:50 MPV 11.5 fl (6.2-12.0) 07/08/20 17:50 Immature Gran % (Auto) 1.000 % (0.0-0.9) H 07/08/20 17:50 Neut % (Auto) 67.0 % (47-70) 07/08/20 17:50 Lymph % (Auto) 15.5 % (19-41) L 07/08/20 17:50 Dane % (Auto) 11.8 % (0-10) H 07/08/20 17:50 Eos % (Auto) 3.9 % (0-5) 07/08/20 17:50 Baso % (Auto) 0.8 % (0-1) 07/08/20 17:50 Absolute Neuts (auto) 3.4 X10^3/uL (2.0-7.7) 07/08/20 17:50 Absolute Lymphs (auto) 0.79 X10^3/uL (0.83-4.51) L 07/08/20 17:50 Nucleated RBC % 0 % (0-5) 07/08/20 17:50 PT 26.2 SECONDS (11.7-14.9) H 07/08/20 17:50 INR 2.5 07/08/20 17:50 APTT 41.4 Seconds (24.1-36.2) H 07/08/20 17:50 Sodium 139 mmol/L (136-145) 07/08/20 17:50 Potassium 4.5 mmol/L (3.5-5.1) 07/08/20 17:50 Chloride 109 mmol/L (98-107) H 07/08/20 17:50 Carbon Dioxide 26.0 mmol/L (21.0-32.0) 07/08/20 17:50 Anion Gap 4 (5-15) L 07/08/20 17:50 BUN 28 mg/dL (7-18) H 07/08/20 17:50 Creatinine 1.51 mg/dL (0.70-1.30) H 07/08/20 17:50 Estim Creat Clear Calc 35.87 ml/min 07/08/20 17:50 Est GFR (MDRD) Af Amer 57 mL/min (>60) L 07/08/20 17:50 Est GFR (MDRD) Non-Af 47 mL/min (>60) L 07/08/20 17:50 BUN/Creatinine Ratio 18.5 RATIO (10-20) 07/08/20 17:50 Glucose 101 mg/dL (74-106) 07/08/20 17:50 Calcium 9.4 mg/dL (8.5-10.1) 07/08/20 17:50 Total Bilirubin 0.40 mg/dL (0.20-1.00) 07/08/20 17:50 AST 14 U/L (15-37) L 07/08/20 17:50 ALT 19 U/L (16-61) 07/08/20 17:50 Alkaline Phosphatase 37 U/L (45-117) L 07/08/20 17:50 Total Protein 7.3 g/dL (6.4-8.2) 07/08/20 17:50 Albumin 3.5 g/dL (3.2-5.0) 07/08/20 17:50 Globulin 3.8 g/dL (2.2-4.2) 07/08/20 17:50 Albumin/Globulin Ratio 0.9 RATIO (0.9-2.4) 07/08/20 17:50 - Medical Decision Making I do not see any ascites that needs to be drained from the abdomen. Creatinine 1.5. I think we can increase his Lasix over the weekend and see if that helps his symptoms and have him follow-up early next week. ED Disposition - Plan for ED Patient: Disposition: Home or Assisted Living Diagnosis: CHF (congestive heart failure), Coagulopathy Instructions: ED Peripheral Edema, Bilateral Referrals: Angel Lang MD [Primary Care Provider] - 3-5 Days Additional Instructions: I would increase your Lasix from 40 mg once a day to twice a day over the next 3 days.
[2020-07-08 18:01] LABS: Absolute Lymphocyte Count 0.79 X10^3/uL (0.83-4.51); Absolute Neutrophil Count 3.4 X10^3/uL (2.0-7.7); Basophil# 0.04 X10^3/uL; Basophil% 0.8 % (0-1); Eosinophils% 3.9 % (0-5); Hematocrit 41.6 % (40-54); Hemoglobin 13.5 g/dL (13.0-16.5); Lymphocyte # 0.79 X10^3/ul (4.0); Lymphocyte % 15.5 % (19-41); Mean Corp Hgb Conc 32.5 g/dL (32-36); Mean Corpuscular Volume 98.6 fL (80-94); Mean Platelet Vol. 11.5 fl (6.2-12.0); Monocyte% 11.8 % (0-10); NRBC Flagged by Analyzer 0 % (0-5); Neutrophil # 3.41 X10^3/uL (2.7-7.7); Platelet Count 241 K/mm3 (150-450); RBC Distribution Width CV 15.2 % (11.6-14.6); RBC Distribution Width SD 55.4 fl (35.1-43.9); Red Blood Count 4.22 M/mm3 (4.6-6.2); White Blood Count 5.1 K/mm3 (4.4-11.0)
[2020-07-08 18:13] LABS: International Normalized Ratio 2.5; Prothrombin Time (Protime)PT. 26.2 SECONDS (11.7-14.9)
[2020-07-08 18:14] LABS: Partial Thromboplast Time 41.4 Seconds (24.1-36.2)
[2020-07-08 18:19] LABS: ALB/GLOB Ratio 0.9 RATIO (0.9-2.4); AST(SGOT) 14 U/L (15-37); Alanine Aminotransfer ALT/SGPT 19 U/L (16-61); Albumin, Serum 3.5 g/dL (3.2-5.0); Alkaline Phosphatase 37 U/L (45-117); Anion Gap 4 (5-15); BUN 28 mg/dL (7-18); BUN/Creat Ratio 18.5 RATIO (10-20); Calcium,Total 9.4 mg/dL (8.5-10.1); Chloride 109 mmol/L (98-107); Creatinine, Serum 1.51 mg/dL (0.70-1.30); EST Glomerular Filtration Rate 47 mL/min (>60); Est Glom Filt Rate - Afr Amer 57 mL/min (>60); Estimated Creatinine Clearance 35.87 ml/min; Globulin 3.8 g/dL (2.2-4.2); Glucose 101 mg/dL (74-106); Potassium 4.5 mmol/L (3.5-5.1); Protein, Total 7.3 g/dL (6.4-8.2); Sodium Level 139 mmol/L (136-145)
[2020-07-08 18:34] VITALS: PULSE 70; RESP 20; O2SAT 94
[2020-07-08 19:22] VITALS: BP 105/61; PULSE 70; RESP 20; O2SAT 95
== END 2020-07-08 19:23 | disposition home or self-care (01) ==
PROVIDERS: Emergency Provider Emergency Medicine; PCP Family Medicine
DX: I13.0 Hypertensive heart and chronic kidney disease with heart failure and stage 1 through stage 4 chronic kidney disease, or unspecified chronic kidney disease (principal); E11.22 Type 2 diabetes mellitus with diabetic chronic kidney disease; N18.3 Chronic kidney disease, stage 3 (moderate); I50.9 Heart failure, unspecified; D68.9 Coagulation defect, unspecified; I48.91 Unspecified atrial fibrillation; E11.42 Type 2 diabetes mellitus with diabetic polyneuropathy; K21.9 Gastro-esophageal reflux disease without esophagitis; E78.5 Hyperlipidemia, unspecified; I25.2 Old myocardial infarction; M10.9 Gout, unspecified; Z86.2 Personal history of diseases of the blood and blood-forming organs and certain disorders involving the immune mechanism; Z95.810 Presence of automatic (implantable) cardiac defibrillator; Z79.4 Long term (current) use of insulin; Z79.01 Long term (current) use of anticoagulants; Z79.02 Long term (current) use of antithrombotics/antiplatelets; Z79.84 Long term (current) use of oral hypoglycemic drugs; Z79.899 Other long term (current) drug therapy
CPT/HCPCS: 74176; 80053; 85025; 85610; 85730; 99283; A4216

== ENCOUNTER 2020-08-08 14:48 | Outpatient (RCR) | payer MEDICARE, BC, SELFPAY ==
[2020-08-08 15:55] LABS: AST(SGOT) 27 U/L (15-37); Alanine Aminotransfer ALT/SGPT 30 U/L (16-61); Albumin, Serum 3.3 g/dL (3.2-5.0); Alkaline Phosphatase 50 U/L (45-117); Bilirubin, Direct 0.18 mg/dL (0.00-0.30); Cholesterol 162 mg/dL (200); Globulin 3.9 g/dL (2.2-4.2); High Density Lipoprotein 42 mg/dL; Protein, Total 7.2 g/dL (6.4-8.2); Triglycerides 208 mg/dL; Very Low Density Lipoprotein 42 mg/dL (5-40)
[2020-08-08 16:08] LABS: International Normalized Ratio 1.8; Prothrombin Time (Protime)PT. 20.8 SECONDS (11.7-14.9)
== END 2020-08-08 18:00 | disposition home or self-care (01) ==
LOC: LAB 14:48
PROVIDERS: Internal Medicine; Nurse Practitioner Family; PCP Family Medicine; Referring Provider Internal Medicine Cardiovascular Disease; Visit Provider Internal Medicine Cardiovascular Disease
DX: I48.0 Paroxysmal atrial fibrillation (principal); Z79.01 Long term (current) use of anticoagulants; E78.00 Pure hypercholesterolemia, unspecified
CPT/HCPCS: 36415; 80061; 80076; 85610

== ENCOUNTER 2020-10-28 16:10 | Outpatient (RCR) | payer MEDICARE, BC, SELFPAY ==
[2020-10-19 12:38] LABS: Prothrombin Time (Protime)PT. 41.4 SECONDS (11.7-14.9)
[2020-10-19 12:52] LABS: International Normalized Ratio 4.3
[2020-10-28 17:51] LABS: International Normalized Ratio 2.1; Prothrombin Time (Protime)PT. 23.2 SECONDS (11.7-14.9)
== END 2020-10-28 18:00 | disposition home or self-care (01) ==
LOC: MTLAB 16:10
PROVIDERS: PCP Family Medicine; Referring Provider Internal Medicine Cardiovascular Disease; Visit Provider Internal Medicine Cardiovascular Disease
DX: I48.0 Paroxysmal atrial fibrillation (principal); Z79.01 Long term (current) use of anticoagulants
CPT/HCPCS: 36415; 85610

== ENCOUNTER 2020-11-11 09:56 | Outpatient (RCR) | payer MEDICARE, BC, SELFPAY | END 2020-11-11 23:59 | LOC: IMMUN 09:56 | PROVIDERS: PCP Family Medicine; Referring Provider Family Medicine; Visit Provider Family Medicine | DX: Z23 Encounter for immunization (principal) | CPT/HCPCS: 0011A; 0012A; 91301 ==

== ENCOUNTER → 2020-12-02 15:49 | Outpatient (CLI) | payer MEDICARE, BC, SELFPAY | PROVIDERS: PCP Family Medicine | DX: I50.22 Chronic systolic (congestive) heart failure (principal) | CPT/HCPCS: 87635; C9803; U0005; U0003 ==

== ENCOUNTER 2020-12-31 11:51 | Outpatient (RCR) | payer MEDICARE, BC, SELFPAY ==
[2020-12-31 12:13] LABS: Absolute Lymphocyte Count 1.03 X10^3/uL (0.83-4.51); Absolute Neutrophil Count 4.8 X10^3/uL (2.0-7.7); Basophil# 0.06 X10^3/uL; Basophil% 0.9 % (0-1); Eosinophil# 0.21 X10^3/uL; Eosinophils% 3.1 % (0-5); Hematocrit 44.5 % (40-54); Hemoglobin 14.7 g/dL (13.0-16.5); Lymphocyte # 1.03 X10^3/ul (4.0); Lymphocyte % 15.2 % (19-41); Mean Corpuscular Hgb 32.1 pg (27.0-32.0); Mean Corpuscular Volume 97.2 fL (80-94); Mean Platelet Vol. 12.2 fl (6.2-12.0); Monocyte# 0.62 X10^3/uL; Monocyte% 9.1 % (0-10); NRBC Flagged by Analyzer 0 % (0-5); Neutrophil # 4.82 X10^3/uL (2.7-7.7); Platelet Count 217 K/mm3 (150-450); RBC Distribution Width CV 13.2 % (11.6-14.6); RBC Distribution Width SD 47.3 fl (35.1-43.9); Red Blood Count 4.58 M/mm3 (4.6-6.2); White Blood Count 6.8 K/mm3 (4.4-11.0)
[2020-12-31 12:23] LABS: International Normalized Ratio 1.5
[2020-12-31 12:45] LABS: Anion Gap 5 (5-15); BUN 35 mg/dL (7-18); BUN/Creat Ratio 20.8 RATIO (10-20); Calcium,Total 9.5 mg/dL (8.5-10.1); Chloride 99 mmol/L (98-107); Creatinine, Serum 1.68 mg/dL (0.70-1.30); EST Glomerular Filtration Rate 42 mL/min (>60); Est Glom Filt Rate - Afr Amer 51 mL/min (>60); Glucose 285 mg/dL (74-106); Potassium 4.5 mmol/L (3.5-5.1); Sodium Level 134 mmol/L (136-145)
== END 2020-12-31 18:00 | disposition home or self-care (01) ==
LOC: LAB 11:51
PROVIDERS: PCP Family Medicine; Referring Provider Internal Medicine Cardiovascular Disease; Visit Provider Internal Medicine Cardiovascular Disease
DX: I48.0 Paroxysmal atrial fibrillation (principal); I50.22 Chronic systolic (congestive) heart failure; Z79.01 Long term (current) use of anticoagulants
CPT/HCPCS: 36415; 80048; 85025; 85610

== ENCOUNTER 2021-01-07 13:05 | Emergency (ER) | payer MEDICARE, BC, SELFPAY ==
[2021-01-07 13:15] VITALS: BP 125/76; PULSE 70; RESP 17; TEMP 35.6; O2SAT 96; BMI 31.1
--- NOTE | 2021-01-07 13:38 | CT_ITS ---
STUDY: CT ABDOMEN AND PELVIS WITHOUT CONTRAST REASON FOR EXAM: Male, 80 years old. injury right abdomen RADIATION DOSAGE (If Supplied By Facility): CTDIvol = ( 15.88 ) mGy, DLP = ( 864.75 ) mGycm TECHNIQUE: Transaxial images were obtained from the dome of the diaphragm to the symphysis pubis without oral contrast, and without intravenous contrast. Sagittal and coronal images were reconstructed. Individualized dose optimization techniques were used for this CT. COMPARISON: 07/08/2020 FINDINGS: Granuloma in the right lower lobe is stable. Stable left ventricular myometrial calcifications likely sequela of prior infarction. Cardiac conduction device noted. Chronic fibrotic changes of the left lung base, stable. Normal liver. Tiny gallstones in the gallbladder neck stable. There are multiple benign calcified granulomata of the spleen. Normal pancreas. Normal bilateral adrenal glands. Stable simple cyst of the inferior right kidney. No hydronephrosis or urinary tract calcifications. Normal visualized stomach. Normal small intestine. There are multiple colonic diverticula consistent with diverticulosis. The appendix is visualized and appears normal. There is diffuse atherosclerotic calcification of the abdominal aorta, without a demonstrated aneurysm. Normal inferior vena cava. Normal retroperitoneum. Normal urinary bladder. Normal abdominal wall. There are diffuse degenerative changes of the visualized lumbar spine and bilateral sacroiliac joints. CT/Abdomen/Pelvis without Cont IMPRESSION: 1. No pneumoperitoneum or ascites. 2. Stable chronic changes, as above. Electronically Signed: Jose Carrasco MD ([place]) at 14:16 EDT , Service support ,
--- NOTE | 2021-01-07 13:45 | RAD_ITS ---
STUDY: X-RAY - RIGHT FEMUR REASON FOR STUDY: Male, 80 years old. injury and pain TECHNIQUE: 2 view(s) of the femur. COMPARISON: None. FINDINGS: Normal visualized femur. Normal visualized soft tissue structure. There are atherosclerotic vascular calcifications. The urinary changes of the right hip and knee. Surgical clips in the medial knee soft tissues. RAD/Femur Min 2 Views IMPRESSION: No fracture or malalignment. Electronically Signed: Jose Carrasco MD ([place]) at 14:19 EDT , Service support ,
--- NOTE | 2021-01-07 14:12 | ED.VIS.GEN ---
History of Present Illness Chief Complaint: Fall Informant: Patient, Family Narrative: Patient sustained a fall yesterday injuring his right hip and right side. He is on Coumadin. Family notes bruising and pain with motion. He denies any head or neck injury. He denies any cough or shortness of breath. No hematuria noted. states that they had to make recent adjustments to Coumadin dosing last week - Past Medical History (1) Aortocoronary bypass status Status: Chronic Comment: CABG x3 - KO to diag, SVG to RCA and SVG to RCA 06/18/1996 (2) Atrial fibrillation Status: Chronic (3) 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 Status: Chronic Comment: March 2012 (4) CKD (chronic kidney disease), stage III Status: Chronic (5) Chronic combined systolic and diastolic CHF (congestive heart failure) Status: Chronic (6) Coagulopathy Status: Chronic (7) Diabetic polyneuropathy Status: Chronic (8) GERD (gastroesophageal reflux disease) Status: Chronic (9) Gout Status: Chronic (10) HLD (hyperlipidemia) Status: Chronic (11) Macrocytic anemia Status: Chronic (12) Type 2 diabetes mellitus Status: Chronic Past Medical History - Allergies and Home Meds Allergies/Adverse Reactions: Allergies Iodine and Iodide Containing Produc Adverse Reaction (Severe, Verified 01/07/21 13:06) Diarrhea metformin Adverse Reaction (Verified 01/07/21 13:06) Upset Stomach niacin Adverse Reaction (Verified 01/07/21 13:06) Other Primary Care Physician: Angel Lang MD [Primary Care Provider] - 1-2 Weeks Surgical History: coronary bypass surgery - x 3., tonsillectomy, - - Pacemaker/AICD, tonsillectomy, PCI at [facility] in nov 2019 with [employer]ER[employer] to the SVG to the RCA, RF ablation Lives: Spouse/ Significant Other Smoking Status: Never smoker Drugs: None - Family History Maternal Family History: Family History (Last Reviewed 05/05/20 @ 13:15 by Juan Villafuerte NP, HOUSING AND RESIDENCE LIFE DIRECTOR-C) Father Myocardial infarction Family History: Reports: High Cholesterol, Heart Disease, Hypertension Paternal Family History: Family History (Last Reviewed 05/05/20 @ 13:15 by Juan Villafuerte NP, HOUSING AND RESIDENCE LIFE DIRECTOR-C) Father Myocardial infarction Family History: Reports: High Cholesterol, Heart Disease, Hypertension Review of Systems General: Denies: Chills, Fever, Sweats Eyes: Denies: Visual changes - bilaterally, Diplopia ENT: Denies: Rhinorrhea, Sore throat Cardiovascular: Denies: Chest pain, Palpitations Respiratory: Denies: Dyspnea, Cough, Dyspnea on exertion Gastrointestinal: Reports: Abdominal pain. Denies: Nausea, Vomiting, Diarrhea, Melena, Hematochezia Genitourinary: Denies: Dysuria, Hematuria, Frequency Musculoskeletal: Reports: Extremity Pain. Denies: Back pain Skin: Denies: Rash, Wounds Neurological: Denies: Headache, Weakness, Numbness Physical Exam Vital Signs/Narrative: Vital Signs Temp Pulse Resp BP Pulse Ox 01/07/21 13:15 96.1 F L 70 17 125/76 H 96 Inital Vital Signs reviewed: Yes General: Well nourished, Well developed, No Acute Distress Head: Normocephalic, Atraumatic Eyes: Perrl, EOMI ENT: Moist mucous membranes, No rhinorrhea Neck: Supple, Nontender Cardiovascular: Regular rate, Regular rhythm, No murmurs Respiratory: No distress, CTA bilaterally, Chest nontender Abdomen: Soft, Nondistended, Normal bowel sounds, Tender - Tenderness along right mid axillary/posterior lower ribs and abdominal wall with contusion and abrasions noted. Back: Nontender, Normal Inspection Extremities: No edema, Tenderness - Tender to palpation right hip no shortening or rotation. Skin: Normal color, No rash Neurological: Alert, Oriented x3, Cranial nerves II-XII grossly intact, Normal Strength, Normal Sensation Psychological: Normal affect, Normal Mood Diagnostic/Tx/Re-eval Clinical Impression(s) from Imaging Studies Abdomen/Pelvis CT 01/07/21 13:38 IMPRESSION: 1. No pneumoperitoneum or ascites. 2. Stable chronic changes, as above. Electronically Signed: Jose Carrasco MD ([place]) at 14:16 EDT , Service support , Femur X-Ray 01/07/21 13:45 IMPRESSION: No fracture or malalignment. Electronically Signed: Jose Carrasco MD ([place]) at 14:19 EDT , Service support , Laboratory Last Values PT 22.4 SECONDS (11.7-14.9) H 01/07/21 14:40 INR 2.1 01/07/21 14:40 - Medical Decision Making My interpretation of the plain films of the right femur is no acute fracture. I reviewed the CT myself. I am concerned there may be a nondisplaced 8th rib fracture. I do not see any hemopneumothorax. I will see intra-abdominal blood. He has a therapeutic INR at 2.1. I suspect the patient is going to be very sore for extended period of time. I can write for a few [place]. He has had problems with constipation with pain medicine in the past and advised to go ahead and start a stool softener daily. Return if worsening or concerns ED Disposition - Plan for ED Patient: Disposition: Home or Assisted Living Diagnosis: Rib fracture, Contusion of right hip, Abdominal wall contusion, Anticoagulated on Coumadin Instructions: ED Soft Tissue Contusion, ED Rib Fracture Prescriptions: Hydrocodone Bitart/Apap 5-325 [[place] 5MG-325MG] 1 tablet PO Q6H PRN PRN 3 Days #12 tablet PRN Reason: Pain Transmission Status: Received by [facility] Referrals: Angel Lang MD [Primary Care Provider] - 1-2 Weeks
--- NOTE | 2021-01-07 14:50 | ED.RN ---
PER PT , PT DOES NOT WANT TO FILE WORKMANS COMP DESPITE PT FALLING AT WORK YESTERDAY.
[2021-01-07 15:06] LABS: International Normalized Ratio 2.1; Prothrombin Time (Protime)PT. 22.4 SECONDS (11.7-14.9)
[2021-01-07 15:22] VITALS: BP 109/64; PULSE 71; RESP 12; O2SAT 94
== END 2021-01-07 15:44 | disposition home or self-care (01) ==
LOC: ED 14:24
PROVIDERS: Emergency Provider Emergency Medicine; PCP Family Medicine
DX: S70.01XA Contusion of right hip, initial encounter (principal); S22.39XA Fracture of one rib, unspecified side, initial encounter for closed fracture; S30.1XXA Contusion of abdominal wall, initial encounter; I48.91 Unspecified atrial fibrillation; E78.5 Hyperlipidemia, unspecified; E11.22 Type 2 diabetes mellitus with diabetic chronic kidney disease; E11.42 Type 2 diabetes mellitus with diabetic polyneuropathy; I50.42 Chronic combined systolic (congestive) and diastolic (congestive) heart failure; K21.9 Gastro-esophageal reflux disease without esophagitis; N18.30 Chronic kidney disease, stage 3 unspecified; M10.9 Gout, unspecified; D53.9 Nutritional anemia, unspecified; Z95.1 Presence of aortocoronary bypass graft; Z95.810 Presence of automatic (implantable) cardiac defibrillator; Z79.4 Long term (current) use of insulin; Z79.01 Long term (current) use of anticoagulants; Z79.02 Long term (current) use of antithrombotics/antiplatelets; Z79.899 Other long term (current) drug therapy
CPT/HCPCS: 73552; 74176; 85610; 99282; A4216

== ENCOUNTER 2021-02-18 11:15 | Outpatient (RCR) | payer MEDICARE, BC, SELFPAY ==
[2021-01-23 13:34] VITALS: BMI 31.1
[2021-02-18 11:56] LABS: International Normalized Ratio 2.1; Prothrombin Time (Protime)PT. 22.8 SECONDS (11.7-14.9)
== END 2021-02-18 18:00 | disposition home or self-care (01) ==
LOC: LAB 11:15
PROVIDERS: PCP Family Medicine; Referring Provider Internal Medicine Cardiovascular Disease; Visit Provider Internal Medicine Cardiovascular Disease
DX: I48.0 Paroxysmal atrial fibrillation (principal); Z79.01 Long term (current) use of anticoagulants
CPT/HCPCS: 36415; 85610

== ENCOUNTER → 2021-02-25 09:31 | Outpatient (CLI) | payer MEDICARE, BC, SELFPAY ==
[2021-01-23 13:34] VITALS: BMI 31.1
[2021-02-25 10:37] LABS: AST(SGOT) 22 U/L (15-37); Alanine Aminotransfer ALT/SGPT 28 U/L (16-61); Albumin, Serum 3.5 g/dL (3.2-5.0); Alkaline Phosphatase 64 U/L (45-117); Bilirubin, Direct 0.19 mg/dL (0.00-0.30); Cholesterol 185 mg/dL (200); High Density Lipoprotein 43 mg/dL; Protein, Total 7.5 g/dL (6.4-8.2); Triglycerides 245 mg/dL; Very Low Density Lipoprotein 49 mg/dL (5-40)
== END ==
PROVIDERS: PCP Family Medicine; Referring Provider Nurse Practitioner Family; Visit Provider Nurse Practitioner Family
DX: E78.00 Pure hypercholesterolemia, unspecified (principal); E78.5 Hyperlipidemia, unspecified
CPT/HCPCS: 36415; 80061; 80076

== ENCOUNTER 2021-08-26 05:43 | Observation (INO) | payer MEDICARE, BC, SELFPAY ==
[2021-08-26] VITALS (12 sets, daily range): BP systolic 95–144; BP diastolic 68–86; PULSE 75–100; RESP 14–23; TEMP 36.1–36.8; O2SAT 93–97; BMI 32.8; BMI 32.3
--- NOTE | 2021-08-26 06:22 | EKG12_ITS ---
Test Reason : SOB Blood Pressure : / mmHG Vent. Rate : 093 BPM Atrial Rate : 092 BPM P-R Int : 000 ms QRS Dur : 184 ms QT Int : 488 ms P-R-T Axes : 000 176 -05 degrees QTc Int : 606 ms Ventricular-paced rhythm Biventricular pacemaker detected Abnormal ECG Confirmed by CANDACE DUNCAN, ZO ([id number]), non linear editor DEEDEE KRAMER ([id number]) on 08/28/2021 10:52:50 AM Referred By: GREY Confirmed By:ZO MARIA MD
--- NOTE | 2021-08-26 06:22 | RAD_ITS ---
STUDY: X-RAY CHEST REASON FOR EXAM: Male, 81 years old. Dyspnea TECHNIQUE: Portable, upright, AP chest radiograph COMPARISON: 04/14/2020 FINDINGS: Chronic left lung base parenchymal/pleural changes. The right lung appears clear. No right pleural effusion. There is mild cardiac enlargement. 3-lead left chest cardiac device and sternal wires are demonstrated. Normal mediastinum and dorene. Normal visualized pulmonary arteries. There is atherosclerotic calcification of the aortic arch with tortuosity. There is no demonstrated abnormality of the visualized soft tissue structures of the upper abdomen. RAD/Chest 1 View (Portable) IMPRESSION: Chronic pleural and parenchymal changes at the left lung base. No acute abnormal cardiopulmonary finding. Electronically Signed: Juan Manuel Leslie MD at 7:06 EST Tel , Service support ,
[2021-08-26 06:30] LABS: Absolute Lymphocyte Count 1.07 X10^3/uL (0.83-4.51); Absolute Neutrophil Count 4.5 X10^3/uL (2.0-7.7); Basophil# 0.07 X10^3/uL; Basophil% 1.1 % (0-1); Eosinophil# 0.22 X10^3/uL; Eosinophils% 3.4 % (0-5); Hematocrit 43.2 % (40-54); Hemoglobin 13.7 g/dL (13.0-16.5); Lymphocyte # 1.07 X10^3/ul (0.83-4.51); Lymphocyte % 16.5 % (19-41); Mean Corp Hgb Conc 31.7 g/dL (32-36); Mean Corpuscular Hgb 31.3 pg (27.0-32.0); Mean Corpuscular Volume 98.6 fL (80-94); Mean Platelet Vol. 12.1 fl (6.2-12.0); Monocyte# 0.57 X10^3/uL; Monocyte% 8.8 % (0-10); NRBC Flagged by Analyzer 0 % (0-5); Neutrophil # 4.52 X10^3/uL (2.7-7.7); Neutrophil % 69.7 % (47-70); Platelet Count 207 K/mm3 (150-450); RBC Distribution Width CV 14.3 % (11.6-14.6); RBC Distribution Width SD 52.1 fl (35.1-43.9); Red Blood Count 4.38 M/mm3 (4.6-6.2); White Blood Count 6.5 K/mm3 (4.4-11.0)
[2021-08-26 06:49] LABS: ALB/GLOB Ratio 0.8 RATIO (0.9-2.4); AST(SGOT) 17 U/L (15-37); Alanine Aminotransfer ALT/SGPT 21 U/L (16-61); Albumin, Serum 3.2 g/dL (3.2-5.0); Alkaline Phosphatase 43 U/L (45-117); Anion Gap 3 (5-15); BUN 22 mg/dL (7-18); BUN/Creat Ratio 16.2 RATIO (10-20); Chloride 112 mmol/L (98-107); Creatinine, Serum 1.36 mg/dL (0.70-1.30); EST Glomerular Filtration Rate 53 mL/min (>60); Est Glom Filt Rate - Afr Amer 64 mL/min (>60); Estimated Creatinine Clearance 38.48 ml/min; Globulin 3.8 g/dL (2.2-4.2); Glucose 87 mg/dL (74-106); Potassium 3.9 mmol/L (3.5-5.1); Sodium Level 141 mmol/L (136-145); Troponin-I HS 18 pg/mL (3.0-78.0)
--- NOTE | 2021-08-26 06:49 | EDS_ITS ---
HPI History of Present Illness Chief Complaint: Shortness of Breath Informant: patient and spouse/S.O. Onset/Context/Timing Onset: Today Context: gradual Timing: Continuous Quality: Positive for Dyspnea on exertion and Wheezing Worsened by: Exertion and Lying flat Relieved by: Rest Associated Symptoms cough and rhinorrhea; Negative for fever, sore throat, chills, clear sputum, white sputum, yellow sputum or green sputum Chest Pain: Positive for None Narrative Narrative: Patient presents with shortness of breath that became worse today. Patient states it is gradually gotten worse. Patient states it is worse whenever he tries to walk across the room. Patient also noted some wheezing. Patient states his pain is worse whenever he lays flat. Patient also admits to a cough. Patient denies any sputum production. Patient admits to some rhinorrhea but denies any sore throat or ear pain. Patient denies any fevers or chills. Patient denies any chest pain. noted some mild swelling of his lower legs and ankles. 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 Neuropathy Non-ST elevation (NSTEMI) myocardial infarction Obesity YUSUF (obstructive sleep apnea) Paroxysmal atrial fibrillation Paroxysmal ventricular tachycardia Premature ventricular contraction Presence of stent of bypass graft (~11/23/19) Supratherapeutic INR Type 2 diabetes mellitus Home Medications allopurinol 100 mg PO DAILY 11/27/19 [History Last Taken 04/14/20 09:00] clopidogrel 75 mg PO DAILY 11/27/19 [History Last Taken 04/14/20 09:00] pantoprazole 40 mg PO DAILY 11/27/19 [History Last Taken 04/14/20 09:00] amiodarone 200 mg tablet 200 mg PO DAILY #90 tab 02/26/20 [Rx Last Taken 04/14/20 09:00] levothyroxine 75 mcg tablet 75 mcg PO DAILY 04/25/20 [History Last Taken Unknown] spironolactone 25 mg tablet 25 mg PO DAILY #90 tab 12/05/20 [Rx Last Taken Unknown] omega-3 fatty acids-fish oil 2 each PO DAILY 01/07/21 [History Last Taken Unknown] sertraline 25 mg PO DAILY 01/07/21 [History Last Taken Unknown] torsemide 40 mg PO BID 01/07/21 [History Last Taken Unknown] pen needle, diabetic 32 gauge x 5/32 #100 ea 03/10/21 [Rx Last Taken Unknown] rosuvastatin 40 mg tablet 40 mg PO DAILY tab 03/10/21 [History Last Taken Unknown] cholecalciferol (vitamin D3) 25 mcg (1,000 unit) tablet 25 mcg PO DAILY 04/13/21 [History Last Taken Unknown] gabapentin 100 mg capsule 200 mg PO BID cap 04/13/21 [History Last Taken Unknown] insulin glargine 100 unit/mL (3 mL) subcutaneous pen 42 unit SUBCUT QAM ml 04/13/21 [History Last Taken Unknown] nitroglycerin 0.4 mg sublingual tablet 0.4 mg SUBLINGUAL Q5M PRN MDD 3 04/13/21 [History Last Taken Unknown] calcium citrate 200 mg (950 mg) tablet 600 mg PO DAILY tab 05/05/21 [History Last Taken Unknown] sitagliptin 50 mg tablet 50 mg PO DAILY #90 tab 05/05/21 [Rx Last Taken Unknown] folic acid 1 mg tablet 2 mg PO DAILY #180 tab 05/08/21 [Rx Last Taken Unknown] warfarin 1 mg tablet 1 mg PO MOTUWETHFRSA #90 tab 08/10/21 [Rx Last Taken Unknown] warfarin 2 mg tablet 2 mg PO LIAO #14 tab 08/10/21 [Rx Last Taken Unknown] fenofibrate micronized 200 mg PO DAILY 08/26/21 [History Last Taken Unknown] sacubitril-valsartan [Entresto] 1 ea PO BID 08/26/21 [History Last Taken Unknown] Allergy/AdvReac Type Severity Reaction Status Date / Time Iodine and Iodide Containing AdvReac Severe Diarrhea Verified 08/26/21 05:46 Produc metformin AdvReac Upset Verified 08/26/21 05:46 Stomach niacin AdvReac Other Verified 08/26/21 05:46 Family History Father Myocardial infarction Surgical History Aortocoronary bypass status (~06/18/96) History of cardiac radiofrequency ablation (~06/12/07) History of implantable cardioverter-defibrillator (ICD) placement (~07/14/01) History of tonsillectomy Social History Smoking Status: Never smoker alcohol intake: never substance use type: does not use caffeine: Yes Type: coffee Number of servings: 2 ROS ROS ED Constitutional Constitutional ED: Denies chills or fever(s) Eyes Eyes: Denies blurry vision or change in vision ENT ENT ED: Denies rhinorrhea or sore throat Cardiovascular Cardiovascular: Denies chest pain or palpitations Respiratory/Chest Respiratory/Chest: Reports cough and dyspnea Gastrointestinal Gastrointestinal: Denies nausea or vomiting Genitourinary Genitourinary ED: Denies dysuria or hematuria Musculoskeletal Musculoskeletal: Denies back pain or neck pain Integumentary Denies abscess or rash Neurologic Neurologic: Denies headache(s) or weakness Allergic/Immunologic Allergic/Immunologic ED: Denies mouth swelling or urticaria EXAM Physical Exam Const Vital Signs: 08/26/21 05:44 08/26/21 06:17 08/26/21 06:25 Temperature 97.0 F L 97.0 F L Temperature Source Temporal Temporal Pulse Rate 95 93 Respiratory Rate 23 H 20 H Respiratory Effort Short of Breath Respiratory Depth Normal Respiratory Pattern Normal Blood Pressure 144/83 H 130/84 H Blood Pressure Mean 103 99 Pulse Ox 95 95 Oxygen Delivery Method Room Air Room Air Room Air 08/26/21 07:10 Temperature Temperature Source Pulse Rate 94 Respiratory Rate 19 H Respiratory Effort Respiratory Depth Respiratory Pattern Blood Pressure 119/80 Blood Pressure Mean 93 Pulse Ox 95 Oxygen Delivery Method Room Air Positive well nourished and well developed General Appearance ED: well developed HEENT Reports moist mucous membranes Neck supple and no JVD Resp normal respiratory effort Auscultation: diminished lung sounds diffuse Cardio regular rate, regular rhythm and no murmurs GI normal to inspection, nondistended, normoactive bowel sounds and non-tender Palpation: soft Extremity normal to inspection General Extremety ED: Negative for edema or tenderness General Extremity: Negative for edema Neuro oriented x3, CN's II-XII intact bilaterally and no sensory deficits noted Sensorium / Orientation: alert Motor Exam: strength 5/5 throughout Psych mental status grossly normal Skin no rashes or lesions noted MDM MDM MDM Narrative Medical decision making narrative: EKG was obtained. On my interpretation, it shows a paced rhythm with a left bundle branch block. There are no acute ST or T wave changes. CBC was essentially within normal limits. Comprehensive metabolic profile showed a slightly elevated creatinine of 1.36 and a BUN of 22. Initial high-sensitivity troponin was normal at 18. Portable 1 view chest x- ray was obtained. On my interpretation, lung soler are clear. There is normal cardiac silhouette. Bony thorax is normal. There is no acute process noted. Radiologist also interpreted the x-ray and agrees. Care of patient turned over to the oncoming physician with repeat high-sensitivity troponin and BNP pending. Lab Data Attestation: I reviewed the patient's lab results. Labs: Laboratory Results - last 24 hr 08/26/21 08/26/21 05:55 05:55 WBC 6.5 RBC 4.38 L Hgb 13.7 Hct 43.2 MCV 98.6 H MCH 31.3 MCHC 31.7 L RDW Std Deviation 52.1 H RDW Coeff of Gavino 14.3 Plt Count 207 MPV 12.1 H Immature Gran % (Auto) 0.500 Neut % (Auto) 69.7 Lymph % (Auto) 16.5 L Beauregard % (Auto) 8.8 Eos % (Auto) 3.4 Baso % (Auto) 1.1 H Absolute Neuts (auto) 4.5 Absolute Lymphs (auto) 1.07 Nucleated RBC % 0 Sodium 141 Potassium 3.9 Chloride 112 H Carbon Dioxide 26.0 Anion Gap 3 L BUN 22 H Creatinine 1.36 H Estim Creat Clear Calc 38.48 Est GFR (MDRD) Af Amer 64 Est GFR (MDRD) Non-Af 53 L BUN/Creatinine Ratio 16.2 Glucose 87 Calcium 9.0 Total Bilirubin 0.40 AST 17 ALT 21 Alkaline Phosphatase 43 L Troponin I High Sens 18 Total Protein 7.0 Albumin 3.2 Globulin 3.8 Albumin/Globulin Ratio 0.8 L Radiography Chest X-Ray - ED: 1 View, Read by ED Physician, Read by Radiologist and Normal Diagnostic Testing: Clinical Impression(s) from Imaging Studies Chest X-Ray 08/26/21 06:22 IMPRESSION: Chronic pleural and parenchymal changes at the left lung base. No acute abnormal cardiopulmonary finding. Electronically Signed: Juan Manuel Leslie MD at 7:06 EST Tel , Service support , EKG Initial EKG: Interpretation: No Acute Injury Pattern, Paced and LBBB Prior EKG tracings: available for review Prior: Unchanged (04/14/2020) Discharge Plan Triage Chief Complaint: Shortness of Breath ED Provider: Enzo Andrews Dx/Rx/DC Orders Clinical Impression: Dyspnea Prescriptions: No Action rosuvastatin 40 mg tablet 40 mg PO DAILY RF: 0 (DME) pen needle, diabetic [BD Ultra-Fine Lauren Pen Needle] 32 gauge x 5/32 needle See Rx Instructions .ROUTE .MEDSUPPLY Qty: 100 RF: 6 gabapentin 100 mg capsule 200 mg PO BID RF: 0 Januvia 50 mg tablet 50 mg PO DAILY Qty: 90 RF: 3 cholecalciferol (vitamin D3) 25 mcg (1,000 unit) tablet 25 mcg PO DAILY RF: 0 Lantus Solostar U-100 Insulin 100 unit/mL (3 mL) insulin pen 42 unit subcut QAM RF: 0 clopidogrel 75 MG tablet 75 mg PO DAILY RF: 0 allopurinol 100 MG tablet 100 mg PO DAILY RF: 0 pantoprazole 40 MG tablet 40 mg PO DAILY RF: 0 levothyroxine 75 mcg tablet 75 mcg PO DAILY RF: 0 nitroglycerin 0.4 mg tablet, sublingual 0.4 mg sublingual Q5M MDD 3 PRN (Reason: angina) RF: 0 torsemide 20 MG tablet 40 mg PO BID RF: 0 sertraline 25 MG tablet 25 mg PO DAILY RF: 0 omega-3 fatty acids-fish oil 1 EACH capsule 2 each PO DAILY RF: 0 calcium citrate 200 mg (950 mg) tablet 600 mg PO DAILY RF: 0 fenofibrate micronized 200 mg capsule 200 mg PO DAILY RF: 0 Entresto 49-51 mg tablet 1 ea PO BID RF: 0 amiodarone 200 mg tablet 200 mg PO DAILY Qty: 90 RF: 3 spironolactone 25 mg tablet 25 mg PO DAILY Qty: 90 RF: 3 folic acid 1 mg tablet 2 mg PO DAILY Qty: 180 RF: 3 warfarin 1 mg tablet 1 mg PO MOTUWETHFRSA Qty: 90 RF: 3 warfarin 2 mg tablet 2 mg PO LIAO Qty: 14 RF: 3 Primary Care Provider: Angel Lang Referrals: Angel Lang MD [Primary Care Provider] -
[2021-08-26 07:35] LABS: BNP,B-Type NATRIURETIC PEPTIDE 425.5 pg/mL (0-100)
[2021-08-26 08:33] LABS: Troponin-I HS 18 pg/mL (3.0-78.0)
[2021-08-26 10:01] LABS: International Normalized Ratio 2.2; Prothrombin Time (Protime)PT. 23.7 SECONDS (11.7-14.9)
[2021-08-26] MEDS: Furosemide 40 MG/4 ML Vial IV ×2 (10:38→12:21)
--- NOTE | 2021-08-26 11:16 | ECHOCS_ITS ---
Reason For Study: CHF Procedure This was a 2D Doppler, Color Flow transthoracic echocardiogram. Very technially difficult study, multiple positions used to obtain images. Contrast injection was performed. Exam performed portable in patient room. Left Ventricle Normal LV size. The estimated ejection fraction is 25 %. Moderately severe segmental systolic dysfunction (see wall motion). [place] : Severely Hypokinetic. Posterior-Basal: Hypokinetic. Mid- Posterior: Hypokinetic. Right Ventricle Normal RV size. ICD or pacer leads identified within the right ventricle. Normal systolic function. Mitral Valve There is mild mitral annular calcification. Tricuspid Valve Normal tricuspid valve. Mild (1+) tricuspid valve insufficiency. Pulmonary artery systolic pressure is 38 mmHg. Aortic Valve Trisinus/trileaflet aortic valve. Mild focal aortic valve calcification. Great Vessels Normal aortic root. The pulmonary artery is normal size. Normal inferior vena cava. Pericardium/Pleural No pericardial effusion. Medication Diluted definity 4ml given slow IV push to enhance endocardial definition. MMode/2D Measurements & Calculations LA dimension: 4.8 cm LAV(MOD-sp4): 64.9 ml LA A4 area: 23.1 cm2 Doppler Measurements & Calculations MV E max dirk: 74.9 cm/sec Ao V2 max: 92.6 cm/sec LV V1 max: 47.7 cm/sec Ao max P.4 mmHg LV V1 max P.91 mmHg PA V2 max: 60.4 cm/sec TR max dirk: 294.9 cm/sec TR max P.8 mmHg ECHO/Echo Complete W/ Contrast Interpretation Summary Normal LV size. The estimated ejection fraction is 25 %. Moderately severe segmental systolic dysfunction (see wall motion). The study was technically limited. The study was technically difficult. Contras t injection was performed. Ordering Physician: Zita Menendez Referring Physician: Angel Lang Performed By: Ezra Monaco RCS
--- NOTE | 2021-08-26 12:05 | CT_ITS ---
STUDY: CT CHEST WITHOUT CONTRAST REASON FOR EXAM: Male, 81 years old. SOB/Cough RADIATION DOSAGE (If Supplied By Facility): CTDIvol = ( 16.11 ) mGy, DLP = ( 559.72 ) mGycm TECHNIQUE: Transaxial imaging was performed without the administration of intravenous contrast material. Multiplanar coronal and sagittal images were reformatted. Individualized dose optimization techniques were used for this CT. COMPARISON: 12/11/2020 FINDINGS: Increased symmetric bilateral gynecomastia. Improved expansion of the left lung since the prior study with residual atelectasis at the left lung base. Trace left pleural effusion but certainly decreased since prior study. No pneumothorax. Mild fibrotic scarring in the right lung base. Granuloma in the right lower lobe. Heart remains mildly enlarged. Myocardial calcifications of the left ventricular apex compatible with prior myocardial infarction cardiac conduction device is stable. Interarterial monitoring device of left lower pulmonary artery on image 54 of series 2 is new since the prior study. Normal mediastinum. Normal hilar regions. Normal unenhanced pulmonary arteries. There is atherosclerotic calcification of the aortic arch with tortuosity and elongation of the aortic arch and descending thoracic aorta. There are multi-level degenerative changes of the thoracic spine. 2 small gallstones in the gallbladder neck. CT/Chest without Contrast IMPRESSION: 1. Residual atelectasis and fibrotic scarring in the left lung base is significantly improved since prior study. Minimal residual left pleural effusion. 2. Increased bilateral symmetric gynecomastia. 3. Additional stable chronic changes, as above. Electronically Signed: Jose Carrasco MD ([place]) at 18:23 EST , Service support ,
[2021-08-26 12:09] LABS: Troponin-I HS 16 pg/mL (3.0-78.0)
[2021-08-26] MEDS: Sertraline 50 MG Tablet 25 MG PO (12:57)
[2021-08-26] MEDS: Allopurinol 100 MG Tablet PO (12:57)
[2021-08-26] MEDS: Clopidogrel Bisulfate 75 MG Tablet PO (12:57)
[2021-08-26] MEDS: Gabapentin 100 MG Capsule 200 MG PO ×2 (12:57→22:41)
[2021-08-26] MEDS: Folic Acid 1 MG Tablet 2 MG PO (12:57)
[2021-08-26] MEDS: Pantoprazole Sodium 40 MG Tablet PO (12:57)
[2021-08-26] MEDS: Cholecalciferol (VIT D3) 25 MCG TABLET (1,000 UNITS) PO (12:57)
[2021-08-26] MEDS: Spironolactone 25 MG Tablet PO (13:52)
[2021-08-26] MEDS: SACUBITRIL/VALSARTAN 49-51 MG TABLET 1 EACH PO ×2 (13:53→22:41)
[2021-08-26] MEDS: Omega-3 Acid Ethyl Esters 1 GM Capsule 2 GM PO (13:53)
[2021-08-26] MEDS: Atorvastatin Calcium 80 MG Tablet PO (13:54)
[2021-08-26] MEDS: Fenofibrate 145 MG Tablet PO (13:54)
[2021-08-26] MEDS: Calcium (Elemental) 500 MG Tablet PO (13:54)
[2021-08-26] MEDS: Levothyroxine 75 MCG Tablet PO (13:54)
--- NOTE | 2021-08-26 14:39 | PCM.HP.STD ---
[facility] - General General Date of Admission: 08/26/21 HPI Narrative SATISH MCLAUGHLIN, is a 81 M who presented to the emergency department [facility] on 08/26/2021 complaining of ongoing shortness of breath that has been worsening over the last week and 1/2 to 2 weeks. The patient evidently has chronic shortness of breath that has been problematic since approximately November 2019. At that time he presented to the emergency department and was found to have a wide-complex tachycardia and transferred to [facility] where he underwent stenting of his saphenous vein graft to his RCA. He also had a cardiac arrest and evidently had an extensive hospitalization there per his . He then represented here in late November 2019 and was referred back to [facility] from [place] after he was found to have a very large left pleural effusion and an underlying lung consolidation that was concerning for an empyema. He was transferred to [facility] for his empyema and underwent chest tube placement with antibiotic therapy. CT surgery was deferred as he was a poor surgical candidate and he was managed medically. 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 He had a cardiomems device placed in December 2020 at [facility] and follows regularly with them at the heart failure clinic. He has not recently been notified that his cardiomems numbers are off. He has been compliant with his medications. He states that the shortness of breath is worse with exertion and that he has an associated cough that is unproductive. The cough is intermittent but his does indicate that at times he will cough so hard that he will vomit. He denies any weight gain but indicates he does not weigh himself daily. He denies any worsening edema, he denies paroxysmal nocturnal dyspnea or orthopnea. He does have a diagnosis of obstructive sleep apnea but over the last year has been fairly noncompliant with his CPAP. Upon review of his previous notes his weight is approximately 5 pounds from where he was when he followed up with cardiology in April of this past year. He states that he is short of breath at all times and it is significantly worse with exertion. He denies any fever chills, nausea and vomiting, diarrhea, constipation, or anosmia. His vital signs in the emergency department are overall unremarkable other than some mild tachypnea but his oxygen saturations were stable on room air. His most recent echocardiogram was approximately 1 year ago and at that time he had an EF of 25 to 30%. His CBC is unimpressive with a normal white count and no left shift. He is on Coumadin at baseline and his INR is 2.2. His CMP shows normal electrolytes with mild BUN and creatinine elevation at 22 and 1.36 respectively which appear to be his baseline. His LFTs are normal as is his bilirubin. His BNP is mildly elevated at 425.5 but upon review he has chronic BNP elevation and this is not dramatically higher than it has been previously. His chest x-ray is overall unremarkable other than chronic findings in the left base consistent with his previous empyema. He was given 40 mg of IV Lasix in the emergency department will be admitted to PCU. [facility] Medical History Acute exacerbation of CHF (congestive heart failure) Atherosclerotic heart disease of [place] coronary artery without angina pectoris Atrioventricular block 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 (~04/20/02) CKD (chronic kidney disease), stage III Gout History of cardiac pacemaker (~07/14/01) History of DVT (deep vein thrombosis) History of myocardial infarction HLD (hyperlipidemia) Hyponatremia Hypothyroidism Ischemic cardiomyopathy Lactic acidosis 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 Neuropathy Non-ST elevation (NSTEMI) myocardial infarction Obesity YUSUF (obstructive sleep apnea) Paroxysmal atrial fibrillation Paroxysmal ventricular tachycardia Premature ventricular contraction Presence of stent of bypass graft (~11/23/19) Supratherapeutic INR Type 2 diabetes mellitus Home Medications allopurinol 100 mg PO DAILY 11/27/19 [History Last Taken 04/14/20 09:00] clopidogrel 75 mg PO DAILY 11/27/19 [History Last Taken 04/14/20 09:00] pantoprazole 40 mg PO DAILY 11/27/19 [History Last Taken 04/14/20 09:00] amiodarone 200 mg tablet 200 mg PO DAILY #90 tab 02/26/20 [Rx Last Taken 04/14/20 09:00] levothyroxine 75 mcg tablet 75 mcg PO DAILY 04/25/20 [History Last Taken Unknown] spironolactone 25 mg tablet 25 mg PO DAILY #90 tab 12/05/20 [Rx Last Taken Unknown] omega-3 fatty acids-fish oil 2 each PO DAILY 01/07/21 [History Last Taken Unknown] sertraline 25 mg PO DAILY 01/07/21 [History Last Taken Unknown] torsemide 40 mg PO BID 01/07/21 [History Last Taken Unknown] pen needle, diabetic 32 gauge x #100 ea 03/10/21 [Rx Last Taken Unknown] rosuvastatin 40 mg tablet 40 mg PO DAILY tab 03/10/21 [History Last Taken Unknown] cholecalciferol (vitamin D3) 25 mcg (1,000 unit) tablet 25 mcg PO DAILY 04/13/21 [History Last Taken Unknown] gabapentin 100 mg capsule 200 mg PO BID cap 04/13/21 [History Last Taken Unknown] insulin glargine 100 unit/mL (3 mL) subcutaneous pen 42 unit SUBCUT QAM ml 04/13/21 [History Last Taken Unknown] nitroglycerin 0.4 mg sublingual tablet 0.4 mg SUBLINGUAL Q5M PRN MDD 3 04/13/21 [History Last Taken Unknown] calcium citrate 200 mg (950 mg) tablet 600 mg PO DAILY tab 05/05/21 [History Last Taken Unknown] sitagliptin 50 mg tablet 50 mg PO DAILY #90 tab 05/05/21 [Rx Last Taken Unknown] folic acid 1 mg tablet 2 mg PO DAILY #180 tab 05/08/21 [Rx Last Taken Unknown] warfarin 1 mg tablet 1 mg PO MOTUWETHFRSA #90 tab 08/10/21 [Rx Last Taken Unknown] warfarin 2 mg tablet 2 mg PO LIAO #14 tab 08/10/21 [Rx Last Taken Unknown] fenofibrate micronized 200 mg PO DAILY 08/26/21 [History Last Taken Unknown] sacubitril-valsartan [Entresto] 1 ea PO BID 08/26/21 [History Last Taken Unknown] Allergy/AdvReac Type Severity Reaction Status Date / Time Iodine and Iodide Containing AdvReac Severe Diarrhea Verified 08/26/21 05:46 Produc metformin AdvReac Upset Verified 08/26/21 05:46 Stomach niacin AdvReac Other Verified 08/26/21 05:46 Family History Father Myocardial infarction Surgical History Aortocoronary bypass status (~06/18/96) History of cardiac radiofrequency ablation (~06/12/07) History of implantable cardioverter-defibrillator (ICD) placement (~07/14/01) History of tonsillectomy Social History Smoking Status: Never smoker alcohol intake: never substance use type: does not use caffeine: Yes Type: coffee Number of servings: 2 ROS Constitutional Constitutional: Denies anorexia, change in weight, chills, fatigue, fever(s), malaise, night sweats, weakness or other Eyes Eyes: Denies blurry vision, change in eye color, change in vision, discharge from eye(s), double vision, erythema, eye pain, loss of vision or other ENT HEENT: Denies abnormal hearing, dysphagia, ear pain, epistaxis, headache(s), hearing loss, nasal congestion, nasal discharge, post nasal drip, sinus pressure, sore throat or other Cardiovascular Cardiovascular: Reports other Details: Reports chronic bilateral lower extremity edema that is stable ; Denies chest pain, claudication, dyspnea on exertion, edema, lightheadedness, orthopnea, palpitations, paroxysmal nocturnal dyspnea, rapid heart rate or syncope Respiratory/Chest Respiratory/Chest: Reports cough, dyspnea, shortness of breath at rest and shortness of breath with exertion; Denies excessive phlegm production, hemoptysis, productive cough, wheezing or other Gastrointestinal Gastrointestinal: Denies abdominal pain, coffee ground emesis, constipation, diarrhea, dyspepsia, hematemesis, hematochezia, loose stools, melena, nausea, vomiting or other Genitourinary Genitourinary: Denies burning urination, difficulty urinating, dysuria, hematuria, nocturia, urinary frequency, urinary hesitancy, urinary incontinence, urinary urgency or other Musculoskeletal Musculoskeletal: Denies arthralgias, back pain, joint pain, joint stiffness, joint swelling, myalgias, neck pain or other Neurologic Neurologic: Denies abnormal gait, abnormal speech, confusion, disequilibrium, dizziness, focal weakness, headache(s), numbness, paresthesias, seizure-like activity, seizures, syncope, tingling, tremor(s) or other Psychiatric Psychiatric: Denies anxiety, depression, homicidal ideation, suicidal ideation or other Endocrine Endocrinology: Denies change in body appearance, cold intolerance, excessive sweating, heat intolerance, polydipsia, polyuria or other Hematologic/Lymphatic Hematologic/Lymphatic: Denies anemia, easy bleeding, easy bruising, lymphadenopathy or other Allergic/Immunologic Allergic/Immunologic: Denies rhinitis, hives, eczemia, asthma or other Vital Signs Vital Signs Vital Signs: 08/26/21 05:44 08/26/21 06:17 08/26/21 06:25 Temperature 97.0 F L 97.0 F L Temperature Source Temporal Temporal Pulse Rate 95 93 Respiratory Rate 23 H 20 H Respiratory Effort Short of Breath Respiratory Depth Normal Respiratory Pattern Normal Blood Pressure 144/83 H 130/84 H Blood Pressure Mean 103 99 Pulse Ox 95 95 Oxygen Delivery Method Room Air Room Air Room Air 08/26/21 07:10 08/26/21 08:54 08/26/21 10:28 Temperature 98.0 F Temperature Source Oral Pulse Rate 94 99 94 Respiratory Rate 19 H 22 H 22 H Respiratory Effort Respiratory Depth Respiratory Pattern Blood Pressure 119/80 119/82 H 122/85 H Blood Pressure Mean 93 94 97 Pulse Ox 95 96 94 Oxygen Delivery Method Room Air Room Air Room Air 08/26/21 11:36 Temperature 97.2 F L Temperature Source Oral Pulse Rate 96 Respiratory Rate 14 Respiratory Effort Respiratory Depth Respiratory Pattern Blood Pressure 105/86 H Blood Pressure Mean 92 Pulse Ox 94 Oxygen Delivery Method Room Air Weight Weight: 93.6 kg Body Mass Index (BMI) 32.3 Physical Exam Const alert, oriented x3 and no apparent distress Constitutional Narrative: Obese white male sitting up in bed, at bedside, patient appears comfortable, nontachypneic, nontoxic General Appearance: cooperative HEENT normocephalic, head/scalp atraumatic, hearing grossly normal bilaterally and moist oral mucous membranes Eyes PERRL, EOMs intact bilaterally and conjunctivae normal Eyes Narrative: No scleral icterus Neck no lymphadenopathy, supple, no JVD and no carotid bruits Neck Narrative: Trachea midline, no thyroid enlargement Resp normal respiratory effort, no retractions, no use of accessory muscles and clear to auscultation bilaterally Auscultation: Negative for crackles, rales, rhonchi or wheezes Cardio regular rate, regular rhythm, S1 normal heart sound, S2 normal heart sound, no murmurs, no rub, no gallops, no clicks and no JVD Cardio Narrative: ICD noted left upper chest GI normal to inspection, nondistended, normoactive bowel sounds, soft to palpation, non-tender and non-distended Extremity Extremity Narrative: Trace bilateral lower extremity pitting edema, no cyanosis or clubbing Peripheral Pulses: Yes pulses 2+ throughout Skin no rashes or lesions noted, no wounds, skin turgor normal, no jaundice, no petechiae and no mottling Neuro oriented x3, CN's II-XII intact bilaterally, moves all extremities and no focal motor deficits Sensorium / Orientation: awake, alert, oriented to person, oriented to place and oriented to time Speech: speech normal Psych affect normal Results Lab / Micro Data Attestation: I reviewed the patient's lab results. Result Diagrams: 08/26/21 05:55 08/26/21 05:55 Labs: Laboratory Results - last 24 hr 08/26/21 05:55: WBC 6.5, RBC 4.38 L, Hgb 13.7, Hct 43.2, MCV 98.6 H, MCH 31.3, MCHC 31.7 L, RDW Std Deviation 52.1 H, RDW Coeff of Gavino 14.3, Plt Count 207, MPV 12.1 H, Immature Gran % (Auto) 0.500, Neut % (Auto) 69.7, Lymph % (Auto) 16.5 L, Sanders % (Auto) 8.8, Eos % (Auto) 3.4, Baso % (Auto) 1.1 H, Absolute Neuts (auto) 4.5, Absolute Lymphs (auto) 1.07, Nucleated RBC % 0 08/26/21 05:55: Sodium 141, Potassium 3.9, Chloride 112 H, Carbon Dioxide 26.0, Anion Gap 3 L, BUN 22 H, Creatinine 1.36 H, Estim Creat Clear Calc 38.48, Est GFR (MDRD) Af Amer 64, Est GFR (MDRD) Non-Af 53 L, BUN/Creatinine Ratio 16.2, Glucose 87, Calcium 9.0, Total Bilirubin 0.40, AST 17, ALT 21, Alkaline Phosphatase 43 L, Troponin I High Sens 18, Total Protein 7.0, Albumin 3.2, Globulin 3.8, Albumin/Globulin Ratio 0.8 L 08/26/21 05:55: B-Natriuretic Peptide 425.5 H 08/26/21 05:55: PT 23.7 H, INR 2.2 08/26/21 08:10: Troponin I High Sens 18 08/26/21 11:45: Troponin I High Sens 16 Micro: Microbiology 08/26/21 10:13 Mucosa - Nose Respiratory Panel (PCR) - Final Radiology Impression Chest X-Ray 08/26/21 06:22 IMPRESSION: Chronic pleural and parenchymal changes at the left lung base. No acute abnormal cardiopulmonary finding. Electronically Signed: Juan Manuel Leslie MD at 7:06 EST Tel , Service support , Assessment & Plan Assessment/Plan (1) Dyspnea: PLAN: Dyspnea -I really doubt that this is heart failure at this time given the fact that he has a cardio mems device and he has not been contacted by [facility] who manages him at their outpatient heart failure center/also doubt that this is infectious -He was given Lasix x1 dose in the emergency department -We will maintain him on his home torsemide upon admission -Check CT of his chest -Patient is not hypoxic -We will check ambulatory pulse ox tomorrow -Check echocardiogram -Check viral respiratory panel -Legionella and strep pneumo antigens -Patient will need home PFTs after discharge -Amiodarone toxicity could be in the differential although his peripheral eosinophils are normal -May need to consider pulmonary consultation HFrEF-clinically uncertain if it is compensated or uncompensated at this time -Appears to be compensated -We will monitor daily weights and I&O's -Fluid restrict to 1500 cc -Low-sodium diet -Continue home medications including Aldactone, Entresto -Patient has CardioMEMS device and is managed by [facility] heart failure clinic PAF -Continue amiodarone -Continue home Coumadin CAD status post CABG and PCI/HTN/HPL -Continue Plavix -Continue Crestor/fenofibrate Gout -Continue allopurinol DM-2 -Hold home oral agents -Continue home Lantus 42 units in the a.m. -SSI -Accu-Cheks Hypothyroidism -Continue levothyroxine -Check a.m. TSH GERD -Continue PPI Depression -Continue Zoloft DVT prophylaxis -Full anticoagulation CODE STATUS -Full code Charges/Coding Visit Charges Inpatient E&M: 19793 Init Hosp L3
[2021-08-26 16:11] LABS: Bedside Glucose 79 mg/dL (70-110)
[2021-08-26 16:30] LABS: Bedside Glucose 144 mg/dL (70-110)
[2021-08-26] MEDS: Furosemide 80 MG Tablet PO (18:08)
--- NOTE | 2021-08-26 22:07 | CPS ---
Patient does not want to wear CPAP during stay. Non-compliant at home per patient.
[2021-08-26 23:56] LABS: Bedside Glucose 110 mg/dL (70-110)
[2021-08-27] VITALS (13 sets, daily range): BP systolic 83–108; BP diastolic 57–78; PULSE 88–95; RESP 14–18; TEMP 36.2–37.4; O2SAT 90–95
[2021-08-27 06:21] LABS: Absolute Lymphocyte Count 0.89 X10^3/uL (0.83-4.51); Basophil# 0.05 X10^3/uL; Basophil% 0.9 % (0-1); Eosinophil# 0.13 X10^3/uL; Eosinophils% 2.3 % (0-5); Hematocrit 42.1 % (40-54); Hemoglobin 13.4 g/dL (13.0-16.5); Lymphocyte # 0.89 X10^3/ul (0.83-4.51); Lymphocyte % 15.8 % (19-41); Mean Corp Hgb Conc 31.8 g/dL (32-36); Mean Corpuscular Hgb 30.5 pg (27.0-32.0); Mean Corpuscular Volume 95.9 fL (80-94); Mean Platelet Vol. 12.1 fl (6.2-12.0); Monocyte# 0.61 X10^3/uL; Monocyte% 10.8 % (0-10); NRBC Flagged by Analyzer 0 % (0-5); Neutrophil # 3.95 X10^3/uL (2.7-7.7); Neutrophil % 69.8 % (47-70); Platelet Count 191 K/mm3 (150-450); RBC Distribution Width CV 14.1 % (11.6-14.6); RBC Distribution Width SD 49.9 fl (35.1-43.9); Red Blood Count 4.39 M/mm3 (4.6-6.2); White Blood Count 5.7 K/mm3 (4.4-11.0)
[2021-08-27 06:55] LABS: Anion Gap 5 (5-15); BUN 24 mg/dL (7-18); BUN/Creat Ratio 14.7 RATIO (10-20); Calcium,Total 8.9 mg/dL (8.5-10.1); Chloride 105 mmol/L (98-107); Creatinine, Serum 1.63 mg/dL (0.70-1.30); EST Glomerular Filtration Rate 43 mL/min (>60); Est Glom Filt Rate - Afr Amer 52 mL/min (>60); Glucose 104 mg/dL (74-106); Magnesium 2.2 mg/dL (1.6-2.6); Phosphorus 2.9 mg/dL (2.5-4.9); Potassium 3.9 mmol/L (3.5-5.1); Sodium Level 139 mmol/L (136-145); Thyroid Stim Hormone (TSH) 2.35 uIU/mL (0.358-3.74)
[2021-08-27 07:00] LABS: Bedside Glucose 106 mg/dL (70-110)
[2021-08-27] MEDS: Levothyroxine 75 MCG Tablet PO (08:44)
[2021-08-27] MEDS: Sertraline 50 MG Tablet 25 MG PO (08:45)
[2021-08-27] MEDS: Fenofibrate 145 MG Tablet PO (08:45)
[2021-08-27] MEDS: Cholecalciferol (VIT D3) 25 MCG TABLET (1,000 UNITS) PO (08:45)
[2021-08-27] MEDS: Calcium (Elemental) 500 MG Tablet PO (08:45)
[2021-08-27] MEDS: Gabapentin 100 MG Capsule 200 MG PO ×2 (08:45→22:08)
[2021-08-27] MEDS: Omega-3 Acid Ethyl Esters 1 GM Capsule 2 GM PO (08:45)
[2021-08-27] MEDS: Folic Acid 1 MG Tablet 2 MG PO (08:46)
[2021-08-27] MEDS: Clopidogrel Bisulfate 75 MG Tablet PO (08:46)
[2021-08-27] MEDS: Furosemide 80 MG Tablet PO (08:47)
[2021-08-27] MEDS: Allopurinol 100 MG Tablet PO (08:47)
[2021-08-27] MEDS: Pantoprazole Sodium 40 MG Tablet PO (08:47)
[2021-08-27] MEDS: SACUBITRIL/VALSARTAN 49-51 MG TABLET 1 EACH PO (08:47)
[2021-08-27] MEDS: Atorvastatin Calcium 80 MG Tablet PO (08:48)
[2021-08-27] MEDS: Spironolactone 25 MG Tablet PO (08:48)
[2021-08-27] MEDS: Insulin Lispro 100 UNIT/ML INSULN.PEN SC ×2 (11:31→16:30)
[2021-08-27 11:36] LABS: Bedside Glucose 156 mg/dL (70-110)
--- NOTE | 2021-08-27 12:20 | PCM.CONS.C ---
HPI Consult Data Date of Consult: 09/06/21 HPI Narrative HPI Narrative: SATISH MCLAUGHLIN, is a 81 M who presents [facility] Medical History Acute exacerbation of CHF (congestive heart failure) Atherosclerotic heart disease of [place] coronary artery without angina pectoris Atrioventricular block 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 (~04/20/02) CKD (chronic kidney disease), stage III Gout History of cardiac pacemaker (~07/14/01) History of DVT (deep vein thrombosis) History of myocardial infarction HLD (hyperlipidemia) Hyponatremia Hypothyroidism Ischemic cardiomyopathy 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 Neuropathy Non-ST elevation (NSTEMI) myocardial infarction Obesity YUSUF (obstructive sleep apnea) Paroxysmal atrial fibrillation Paroxysmal ventricular tachycardia Premature ventricular contraction Presence of stent of bypass graft (~11/23/19) Supratherapeutic INR Type 2 diabetes mellitus Home Medications allopurinol 100 mg PO DAILY 11/27/19 [History Last Taken 04/14/20 09:00] clopidogrel 75 mg PO DAILY 11/27/19 [History Last Taken 04/14/20 09:00] pantoprazole 40 mg PO DAILY 11/27/19 [History Last Taken 04/14/20 09:00] levothyroxine 75 mcg tablet 75 mcg PO DAILY 04/25/20 [History Last Taken Unknown] spironolactone 25 mg tablet 25 mg PO DAILY #90 tab 12/05/20 [Rx Last Taken Unknown] omega-3 fatty acids-fish oil 2 each PO DAILY 01/07/21 [History Last Taken Unknown] sertraline 25 mg PO DAILY 01/07/21 [History Last Taken Unknown] torsemide 40 mg PO BID 01/07/21 [History Last Taken Unknown] pen needle, diabetic 32 gauge x 32 #100 ea 03/10/21 [Rx Last Taken Unknown] rosuvastatin 40 mg tablet 40 mg PO DAILY tab 03/10/21 [History Last Taken Unknown] cholecalciferol (vitamin D3) 25 mcg (1,000 unit) tablet 25 mcg PO DAILY 04/13/21 [History Last Taken Unknown] gabapentin 100 mg capsule 200 mg PO BID cap 04/13/21 [History Last Taken Unknown] insulin glargine 100 unit/mL (3 mL) subcutaneous pen 42 unit SUBCUT QAM ml 04/13/21 [History Last Taken Unknown] nitroglycerin 0.4 mg sublingual tablet 0.4 mg SUBLINGUAL Q5M PRN MDD 3 04/13/21 [History Last Taken Unknown] calcium citrate 200 mg (950 mg) tablet 600 mg PO DAILY tab 05/05/21 [History Last Taken Unknown] sitagliptin 50 mg tablet 50 mg PO DAILY #90 tab 05/05/21 [Rx Last Taken Unknown] folic acid 1 mg tablet 2 mg PO DAILY #180 tab 05/08/21 [Rx Last Taken Unknown] warfarin 1 mg tablet 1 mg PO MOTUWETHFRSA #90 tab 08/10/21 [Rx Last Taken Unknown] warfarin 2 mg tablet 2 mg PO LIAO #14 tab 08/10/21 [Rx Last Taken Unknown] Entresto 1 ea PO BID 08/26/21 [History Last Taken Unknown] fenofibrate micronized 200 mg PO DAILY 08/26/21 [History Last Taken Unknown] amiodarone 200 mg tablet 200 mg PO DAILY #90 tab 08/31/21 [Rx Last Taken Unknown] Allergy/AdvReac Type Severity Reaction Status Date / Time Iodine and Iodide Containing AdvReac Severe Diarrhea Verified 08/26/21 05:46 Produc metformin AdvReac Upset Verified 08/26/21 05:46 Stomach niacin AdvReac Other Verified 08/26/21 05:46 Family History Father Myocardial infarction Surgical History Aortocoronary bypass status (~06/18/96) History of cardiac radiofrequency ablation (~06/12/07) History of implantable cardioverter-defibrillator (ICD) placement (~07/14/01) History of tonsillectomy Social History Smoking Status: Never smoker alcohol intake: never substance use type: does not use caffeine: Yes Type: coffee Number of servings: 2 Risk Stratification Risk Stratification Applicable: No Objective Data Vital Signs: Vital Signs Temp Pulse Resp BP Pulse Ox 97.1 F L 95 16 108/78 95 08/27/21 08:39 08/27/21 08:39 08/27/21 08:39 08/27/21 08:39 08/27/21 11:24 Oxygen Flow Rate (L/min) [ 0 AMBULATING on Room Air] Oxygen Flow Rate (L/min) [At 0 REST on Room Air] Oxygen Delivery Method Room Air Weight: 206 lb 5.643 oz Body Mass Index (BMI) 32.3 Intake & Output: Intake and Output for Last 24 Hours 08/25/21 08/26/21 08/27/21 23:59 23:59 23:59 Intake Total 600 / 600 Output Total 675 / 675 Balance -5 / 295 -75 / -75 Lab / Micro Data Result Diagrams: 08/29/21 05:10 08/29/21 05:10 Labs: Laboratory Results - last 24 hr 08/26/21 12:20: POC Glucose 79 08/26/21 16:18: POC Glucose 144 H 08/26/21 22:44: POC Glucose 110 08/27/21 05:30: WBC 5.7, RBC 4.39 L, Hgb 13.4, Hct 42.1, MCV 95.9 H, MCH 30.5, MCHC 31.8 L, RDW Std Deviation 49.9 H, RDW Coeff of Gavino 14.1, Plt Count 191, MPV 12.1 H, Immature Gran % (Auto) 0.400, Neut % (Auto) 69.8, Lymph % (Auto) 15.8 L, Maury % (Auto) 10.8 H, Eos % (Auto) 2.3, Baso % (Auto) 0.9, Absolute Neuts (auto) 4.0, Absolute Lymphs (auto) 0.89, Nucleated RBC % 0 08/27/21 05:30: Sodium 139, Potassium 3.9, Chloride 105, Carbon Dioxide 29.0, Anion Gap 5, BUN 24 H, Creatinine 1.63 H, Estim Creat Clear Calc 32.10, Est GFR (MDRD) Af Amer 52 L, Est GFR (MDRD) Non-Af 43 L, BUN/Creatinine Ratio 14.7, Glucose 104, Calcium 8.9, Phosphorus 2.9, Magnesium 2.2, TSH 2.35 08/27/21 06:50: POC Glucose 106 08/27/21 11:26: POC Glucose 156 H Micro: Microbiology 08/26/21 20:10 Urine, Clean Catch Streptococcus pneumoniae Antigen (M - Final 08/26/21 20:10 Urine, Clean Catch Legionella Antigen - Final 08/26/21 10:13 Mucosa - Nose Respiratory Panel (PCR) - Final Cardiology Labs/Tests 08/27/21 05:30: WBC 5.7, RBC 4.39 L, Hgb 13.4, Hct 42.1, MCV 95.9 H, MCH 30.5, MCHC 31.8 L, Plt Count 191, MPV 12.1 H, Immature Gran % (Auto) 0.400, Neut % (Auto) 69.8, Lymph % (Auto) 15.8 L, Maury % (Auto) 10.8 H, Eos % (Auto) 2.3, Baso % (Auto) 0.9, Absolute Neuts (auto) 4.0, Nucleated RBC % 0 08/27/21 05:30: Sodium 139, Potassium 3.9, Chloride 105, Carbon Dioxide 29.0, Anion Gap 5, BUN 24 H, Creatinine 1.63 H, Est GFR (MDRD) Af Amer 52 L, Est GFR (MDRD) Non-Af 43 L, BUN/Creatinine Ratio 14.7, Glucose 104, Calcium 8.9, Phosphorus 2.9, Magnesium 2.2 Rhythm: EKG: ECHO: Stress Test: Cardiac Cath: PCI: CT Surgery: Holter monitor: EPS: PPM: CXR: Chest CT Scan: Radiography Diagnostic Testing: Radiology Impression Chest CT 08/26/21 12:05 IMPRESSION: 1. Residual atelectasis and fibrotic scarring in the left lung base is significantly improved since prior study. Minimal residual left pleural effusion. 2. Increased bilateral symmetric gynecomastia. 3. Additional stable chronic changes, as above. Electronically Signed: Jose Carrasco MD ([place]) at 18:23 EST , Service support ,
--- NOTE | 2021-08-27 12:29 | CON.PCM.CA_ITS ---
Assessment & Plan Assessment/Plan (1) Heart failure: QUALIFIERS: Heart failure type: systolic (2) History of PTCA: (3) Chronic combined systolic and diastolic CHF (congestive heart failure): (4) Atrial fibrillation: (5) Coronary artery disease: QUALIFIERS: Coronary Disease-Associated Artery/Lesion type: [place] artery [place] vs. transplanted heart: [place] heart Associated angina: angina presence unspecified Qualified Code(s): I25.10 - Atherosclerotic heart disease of [place] coronary artery without angina pectoris (6) Presence of stent of bypass graft: (7) 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: (8) Dyspnea: PLAN: 81-year-old patient with extensive cardiac history Presented with progressive symptoms of shortness of breath No symptoms of chest pain reported. Patient was given IV Lasix and his symptoms is improving. Cardiac assessment and recommendation; 1. Patient had a history of severe ischemic cardiomyopathy, with a history of CABG x3 KO to diagonal and SVG to sequential To RCA RPDA and had a PCI and a stent of the SVG graft to RCA in November 2019. EF around 35% B natruretic peptide elevated to 425, therapeutic. The chest x-ray showed chronic parenchymal change with no evidence of pleural effusion. Patient on CHF protocol with fluid restriction, low-sodium diet. Patient has compensated chronic systolic heart failure. He has history of paroxysmal atrial fibrillation and currently on anticoagulation with Coumadin as well he is on amiodarone. 2. 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 Wilkinson. Noted his serum creatinine elevated on we will hold Entresto and aldosterone we will continue on the Lasix 3. Patient has cardioMEMS and he usually follow-up with CHF clinic at [facility]. HPI Consult Data Date of Consult: 08/27/21 HPI Narrative Reason for Consultation: Shortness of breath,Progressively worsening over 1-2 weeks HPI Narrative: SATISH MCLAUGHLIN, is a 81 M who [facility] Medical History Acute exacerbation of CHF (congestive heart failure) Atherosclerotic heart disease of [place] coronary artery without angina pectoris Atrioventricular block 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 (~04/20/02) CKD (chronic kidney disease), stage III Gout History of cardiac pacemaker (~07/14/01) History of DVT (deep vein thrombosis) History of myocardial infarction HLD (hyperlipidemia) Hyponatremia Hypothyroidism Ischemic cardiomyopathy Lactic acidosis halfway (current) use of anticoagulants Neuropathy Non-ST elevation (NSTEMI) myocardial infarction Obesity YUSUF (obstructive sleep apnea) Paroxysmal atrial fibrillation Paroxysmal ventricular tachycardia Premature ventricular contraction Presence of stent of bypass graft (~11/23/19) Supratherapeutic INR Type 2 diabetes mellitus Home Medications allopurinol 100 mg PO DAILY 11/27/19 [History Last Taken 04/14/20 09:00] clopidogrel 75 mg PO DAILY 11/27/19 [History Last Taken 04/14/20 09:00] pantoprazole 40 mg PO DAILY 11/27/19 [History Last Taken 04/14/20 09:00] amiodarone 200 mg tablet 200 mg PO DAILY #90 tab 02/26/20 [Rx Last Taken 04/14/20 09:00] levothyroxine 75 mcg tablet 75 mcg PO DAILY 04/25/20 [History Last Taken Unknown] spironolactone 25 mg tablet 25 mg PO DAILY #90 tab 12/05/20 [Rx Last Taken Unknown] omega-3 fatty acids-fish oil 2 each PO DAILY 01/07/21 [History Last Taken Unknown] sertraline 25 mg PO DAILY 01/07/21 [History Last Taken Unknown] torsemide 40 mg PO BID 01/07/21 [History Last Taken Unknown] pen needle, diabetic 32 gauge x 32 #100 ea 03/10/21 [Rx Last Taken Unknown] rosuvastatin 40 mg tablet 40 mg PO DAILY tab 03/10/21 [History Last Taken Unknown] cholecalciferol (vitamin D3) 25 mcg (1,000 unit) tablet 25 mcg PO DAILY 04/13/21 [History Last Taken Unknown] gabapentin 100 mg capsule 200 mg PO BID cap 04/13/21 [History Last Taken Unknown] insulin glargine 100 unit/mL (3 mL) subcutaneous pen 42 unit SUBCUT QAM ml 04/13/21 [History Last Taken Unknown] nitroglycerin 0.4 mg sublingual tablet 0.4 mg SUBLINGUAL Q5M PRN MDD 3 04/13/21 [History Last Taken Unknown] calcium citrate 200 mg (950 mg) tablet 600 mg PO DAILY tab 05/05/21 [History Last Taken Unknown] sitagliptin 50 mg tablet 50 mg PO DAILY #90 tab 05/05/21 [Rx Last Taken Unknown] folic acid 1 mg tablet 2 mg PO DAILY #180 tab 05/08/21 [Rx Last Taken Unknown] warfarin 1 mg tablet 1 mg PO MOTUWETHFRSA #90 tab 08/10/21 [Rx Last Taken Unknown] warfarin 2 mg tablet 2 mg PO LIAO #14 tab 08/10/21 [Rx Last Taken Unknown] fenofibrate micronized 200 mg PO DAILY 08/26/21 [History Last Taken Unknown] sacubitril-valsartan [Entresto] 1 ea PO BID 08/26/21 [History Last Taken Unknown] Allergy/AdvReac Type Severity Reaction Status Date / Time Iodine and Iodide Containing AdvReac Severe Diarrhea Verified 08/26/21 05:46 Produc metformin AdvReac Upset Verified 08/26/21 05:46 Stomach niacin AdvReac Other Verified 08/26/21 05:46 Family History Father Myocardial infarction Surgical History Aortocoronary bypass status (~06/18/96) History of cardiac radiofrequency ablation (~06/12/07) History of implantable cardioverter-defibrillator (ICD) placement (~07/14/01) History of tonsillectomy Social History Smoking Status: Never smoker alcohol intake: never substance use type: does not use caffeine: Yes Type: coffee Number of servings: 2 Physical Exam Narrative Seen evaluate it at bedside along with the nursing staff Alert and orientated x3 and was able to give a detailed history about his medical problems. Review of the cardiac telemetry revealed paced cardiac rhythm. Had ICD/pacemaker on the left infraclavicular area S1-S2 is regular There is no murmur Chest examination minimal bilateral basilar rales Examination lower extremity +1 lower extremity edema. Risk Stratification Risk Stratification Applicable: No Objective Data Vital Signs: Vital Signs Temp Pulse Resp BP Pulse Ox 97.1 F L 95 16 108/78 95 08/27/21 08:39 08/27/21 08:39 08/27/21 08:39 08/27/21 08:39 08/27/21 11:24 Oxygen Flow Rate (L/min) [ 0 AMBULATING on Room Air] Oxygen Flow Rate (L/min) [At 0 REST on Room Air] Oxygen Delivery Method Room Air Weight: 206 lb 5.643 oz Body Mass Index (BMI) 32.3 Intake & Output: Intake and Output for Last 24 Hours 08/25/21 08/26/21 08/27/21 23:59 23:59 23:59 Intake Total 600 / 600 Output Total 675 / 675 Balance -5 / 295 -75 / -75 Lab / Micro Data Result Diagrams: 08/27/21 05:30 08/27/21 05:30 Labs: Laboratory Results - last 24 hr 08/26/21 12:20: POC Glucose 79 08/26/21 16:18: POC Glucose 144 H 08/26/21 22:44: POC Glucose 110 08/27/21 05:30: WBC 5.7, RBC 4.39 L, Hgb 13.4, Hct 42.1, MCV 95.9 H, MCH 30.5, MCHC 31.8 L, RDW Std Deviation 49.9 H, RDW Coeff of [place] 14.1, Plt Count 191, MPV 12.1 H, Immature Gran % (Auto) 0.400, Neut % (Auto) 69.8, Lymph % (Auto) 15.8 L, [place] % (Auto) 10.8 H, Eos % (Auto) 2.3, Baso % (Auto) 0.9, Absolute Neuts (auto) 4.0, Absolute Lymphs (auto) 0.89, Nucleated RBC % 0 08/27/21 05:30: Sodium 139, Potassium 3.9, Chloride 105, Carbon Dioxide 29.0, Anion Gap 5, BUN 24 H, Creatinine 1.63 H, Estim Creat Clear Calc 32.10, Est GFR (MDRD) Af Amer 52 L, Est GFR (MDRD) Non-Af 43 L, BUN/Creatinine Ratio 14.7, Glucose 104, Calcium 8.9, Phosphorus 2.9, Magnesium 2.2, TSH 2.35 08/27/21 06:50: POC Glucose 106 08/27/21 11:26: POC Glucose 156 H Micro: Microbiology 08/26/21 20:10 Urine, Clean Catch Streptococcus pneumoniae Antigen (M - Final 08/26/21 20:10 Urine, Clean Catch Legionella Antigen - Final 08/26/21 10:13 Mucosa - Nose Respiratory Panel (PCR) - Final Cardiology Labs/Tests 08/27/21 05:30: WBC 5.7, RBC 4.39 L, Hgb 13.4, Hct 42.1, MCV 95.9 H, MCH 30.5, MCHC 31.8 L, Plt Count 191, MPV 12.1 H, Immature Gran % (Auto) 0.400, Neut % (Auto) 69.8, Lymph % (Auto) 15.8 L, [place] % (Auto) 10.8 H, Eos % (Auto) 2.3, Baso % (Auto) 0.9, Absolute Neuts (auto) 4.0, Nucleated RBC % 0 08/27/21 05:30: Sodium 139, Potassium 3.9, Chloride 105, Carbon Dioxide 29.0, Anion Gap 5, BUN 24 H, Creatinine 1.63 H, Est GFR (MDRD) Af Amer 52 L, Est GFR (MDRD) Non-Af 43 L, BUN/Creatinine Ratio 14.7, Glucose 104, Calcium 8.9, Phos phorus 2.9, Magnesium 2.2 Rhythm: Paced cardiac rhythm EKG; Paced electronic ventricular rhythm : Radiography Diagnostic Testing: Radiology Impression Chest CT 08/26/21 12:05 IMPRESSION: 1. Residual atelectasis and fibrotic scarring in the left lung base is significantly improved since prior study. Minimal residual left pleural effusion. 2. Increased bilateral symmetric gynecomastia. 3. Additional stable chronic changes, as above. Electronically Signed: Jose Carrasco MD ([place]) at 18:23 EST , Service support ,
--- NOTE | 2021-08-27 15:13 | PN.HOSP_ITS ---
Subjective Subjective Patient states he is feeling about the same today. Room air with oxygen saturations at 95 to 92%. An ambulatory pulse ox was performed and patient was 95 at rest on room air and dropped to 90% with ambulation. No coughing spells overnight. Objective Data Objective Data Vital Signs: Vital Signs Temp Pulse Resp BP Pulse Ox 97.8 F 95 16 90/65 92 08/27/21 14:46 08/27/21 14:46 08/27/21 14:46 08/27/21 14:46 08/27/21 14:46 Oxygen Flow Rate (L/min) [ 0 AMBULATING on Room Air] Oxygen Flow Rate (L/min) [At 0 REST on Room Air] Oxygen Delivery Method Room Air Weight: 93.6 kg Body Mass Index (BMI) 32.3 Intake & Output: Intake and Output for Last 24 Hours 08/25/21 08/26/21 08/27/21 23:59 23:59 23:59 Intake Total 600 / 600 Output Total 675 / 675 Balance -5 / 295 -75 / -75 Lab / Micro Data Result Diagrams: 08/27/21 05:30 08/27/21 05:30 Labs: Laboratory Results - last 24 hr 08/26/21 12:20: POC Glucose 79 08/26/21 16:18: POC Glucose 144 H 08/26/21 22:44: POC Glucose 110 08/27/21 05:30: WBC 5.7, RBC 4.39 L, Hgb 13.4, Hct 42.1, MCV 95.9 H, MCH 30.5, MCHC 31.8 L, RDW Std Deviation 49.9 H, RDW Coeff of [place] 14.1, Plt Count 191, MPV 12.1 H, Immature Gran % (Auto) 0.400, Neut % (Auto) 69.8, Lymph % (Auto) 15.8 L, [place] % (Auto) 10.8 H, Eos % (Auto) 2.3, Baso % (Auto) 0.9, Absolute Neuts (auto) 4.0, Absolute Lymphs (auto) 0.89, Nucleated RBC % 0 08/27/21 05:30: Sodium 139, Potassium 3.9, Chloride 105, Carbon Dioxide 29.0, Anion Gap 5, BUN 24 H, Creatinine 1.63 H, Estim Creat Clear Calc 32.10, Est GFR (MDRD) Af Amer 52 L, Est GFR (MDRD) Non-Af 43 L, BUN/Creatinine Ratio 14.7, Glucose 104, Calcium 8.9, Phosphorus 2.9, Magnesium 2.2, TSH 2.35 08/27/21 06:50: POC Glucose 106 08/27/21 11:26: POC Glucose 156 H Micro: Microbiology 08/26/21 20:10 Urine, Clean Catch Streptococcus pneumoniae Antigen (M - Final 08/26/21 20:10 Urine, Clean Catch Legionella Antigen - Final 08/26/21 10:13 Mucosa - Nose Respiratory Panel (PCR) - Final Radiography Diagnostic Testing: Radiology Impression Chest CT 08/26/21 12:05 IMPRESSION: 1. Residual atelectasis and fibrotic scarring in the left lung base is significantly improved since prior study. Minimal residual left pleural effusion. 2. Increased bilateral symmetric gynecomastia. 3. Additional stable chronic changes, as above. Electronically Signed: Jose Carrasco MD ([place]) at 18:23 EST , Service support , Physical Exam Const alert, oriented x3 and no apparent distress Constitutional Narrative: Obese white male sitting up in bed, patient appears comfortable, nontoxic General Appearance: cooperative Exam Limitations: no limitations HEENT normocephalic, head/scalp atraumatic, hearing grossly normal bilaterally and moist oral mucous membranes Head and Scalp: normocephalic Resp normal respiratory effort, no retractions, no use of accessory muscles and clear to auscultation bilaterally Resp Narrative: Few crackles in left base only Auscultation: crackles; Negative for rales, rhonchi or wheezes Cardio regular rate, regular rhythm, S1 normal heart sound, S2 normal heart sound, no murmurs, no rub, no gallops, no clicks and no JVD Cardio Narrative: ICD noted left upper chest GI normal to inspection, nondistended, normoactive bowel sounds, soft to palpation, non-tender and non-distended Extremity Extremity Narrative: Trace bilateral lower extremity pitting edema, no cyanosis or clubbing Peripheral Pulses: Yes pulses 2+ throughout Neuro oriented x3, CN's II-XII intact bilaterally, moves all extremities and no focal motor deficits Sensorium / Orientation: awake, alert, oriented to person, oriented to place and oriented to time Speech: speech normal Assessment & Plan Assessment/Plan (1) Dyspnea: PLAN: Dyspnea -I really doubt that this is heart failure at this time given the fact that he has a cardio mems device and he has not been contacted by [facility] who manages him at their outpatient heart failure center/also doubt that this is infectious -He was given Lasix x1 dose in the emergency department -Continue home torsemide -CT of his chest was overall unimpressive with some residual left lung changes related to recent empyema and chest tube placement -Does show some bronchiectasis -Add Acapella and continue incentive spirometry--> patient was instructed on performance and usage -40 mg of prednisone x5 days and then discontinue -Would recommend outpatient pulmonary follow-up -Patient is not hypoxic -Ambulatory pulse ox was assessed and patient dropped to 90% with ambulation -Echocardiogram is pending -Viral respiratory panel is negative -Legionella and strep pneumo antigens negative -Patient will need home PFTs after discharge -I was concerned that this possibly could be an anginal equivalent given a fairly negative work-up otherwise and therefore I consulted cardiology who recommended a stress test be performed tomorrow. Compensated HFrEF-systolic -Appears to be compensated -We will monitor daily weights and I&O's -Fluid restrict to 1500 cc -Low-sodium diet -Continue home medications including Aldactone, Entresto -Patient has CardioMEMS device and is managed by [facility] heart failure clinic PAF -Continue amiodarone -Continue home Coumadin CAD status post CABG and PCI/HTN/HPL -Continue Plavix -Continue Crestor/fenofibrate Gout -Continue allopurinol DM-2 -Hold home oral agents -Continue home Lantus 42 units in the a.m. -SSI -Accu-Cheks Hypothyroidism -Continue levothyroxine -Check a.m. TSH GERD -Continue PPI Depression -Continue Zoloft DVT prophylaxis -Full anticoagulation CODE STATUS -Full code Charges/Coding Visit Charges Inpatient E&M: 96269 Subs Hosp L2
[2021-08-27 16:35] LABS: Bedside Glucose 183 mg/dL (70-110)
[2021-08-27] MEDS: Furosemide 40 MG Tablet PO (16:51)
[2021-08-27] MEDS: Jantoven 2 MG Tablet PO (16:51)
[2021-08-28] VITALS (14 sets, daily range): BP systolic 86–106; BP diastolic 57–72; PULSE 88–93; RESP 16–20; TEMP 36.3–36.8; O2SAT 92–94
[2021-08-28] MEDS: Clopidogrel Bisulfate 75 MG Tablet PO (05:38)
--- NOTE | 2021-08-28 05:55 | EKG12_ITS ---
Test Reason : AM EKG Blood Pressure : / mmHG Vent. Rate : 092 BPM Atrial Rate : 092 BPM P-R Int : 106 ms QRS Dur : 178 ms QT Int : 496 ms P-R-T Axes : 028 166 -27 degrees QTc Int : 613 ms Sinus rhythm with short DC Non-specific intra-ventricular conduction block Abnormal ECG When compared with ECG of 26-AUG-2021 06:39, MANUAL COMPARISON REQUIRED, DATA IS UNCONFIRMED Confirmed by CANDACE DUNCAN, ZO ([id number]), image editor DEEDEE KRAMER ([id number]) on 08/29/2021 11:21:32 AM Referred By: BRANNON Confirmed By:ZO MARIA MD
[2021-08-28 06:25] LABS: Bedside Glucose 114 mg/dL (70-110)
[2021-08-28 07:17] LABS: Absolute Lymphocyte Count 0.96 X10^3/uL (0.83-4.51); Absolute Neutrophil Count 4.2 X10^3/uL (2.0-7.7); Basophil# 0.05 X10^3/uL; Basophil% 0.8 % (0-1); Eosinophil# 0.24 X10^3/uL; Eosinophils% 3.8 % (0-5); Hematocrit 42.2 % (40-54); Hemoglobin 13.9 g/dL (13.0-16.5); Lymphocyte # 0.96 X10^3/ul (0.83-4.51); Lymphocyte % 15.4 % (19-41); Mean Corp Hgb Conc 32.9 g/dL (32-36); Mean Corpuscular Hgb 31.2 pg (27.0-32.0); Mean Corpuscular Volume 94.8 fL (80-94); Mean Platelet Vol. 12.4 fl (6.2-12.0); Monocyte# 0.73 X10^3/uL; Monocyte% 11.7 % (0-10); NRBC Flagged by Analyzer 0 % (0-5); Neutrophil # 4.24 X10^3/uL (2.7-7.7); Platelet Count 190 K/mm3 (150-450); RBC Distribution Width CV 14.1 % (11.6-14.6); RBC Distribution Width SD 49.3 fl (35.1-43.9); Red Blood Count 4.45 M/mm3 (4.6-6.2); White Blood Count 6.2 K/mm3 (4.4-11.0)
--- NOTE | 2021-08-28 07:26 | PCS.PANDOC ---
PANDEMIC DOCUMENTATION INITIATED: Date: 05/29/2021 Time: 190
[2021-08-28 07:45] LABS: Anion Gap 5 (5-15); BUN 28 mg/dL (7-18); BUN/Creat Ratio 14.9 RATIO (10-20); Calcium,Total 9.1 mg/dL (8.5-10.1); Chloride 103 mmol/L (98-107); Creatinine, Serum 1.88 mg/dL (0.70-1.30); EST Glomerular Filtration Rate 37 mL/min (>60); Est Glom Filt Rate - Afr Amer 44 mL/min (>60); Estimated Creatinine Clearance 27.83 ml/min; Glucose 110 mg/dL (74-106); Potassium 3.7 mmol/L (3.5-5.1); Sodium Level 136 mmol/L (136-145)
[2021-08-28 08:11] LABS: International Normalized Ratio 2.7
--- NOTE | 2021-08-28 10:24 | CASEMGMT ---
Addendum entered by Kayla Reilly 08/28/21 12:57: 1130 Back to room with TENORIO form, explanation done-pt voices understanding, and signs TENORIO form. Original to chart and copy to pt. Pt voices no further questions/concerns/needs. Darnell DYKES CM Original Note: This RN CM to room to complete TENORIO form and pt is out of the dept for testing. Will attempt again later. Darnell DYKES CM
[2021-08-28 11:40] LABS: Bedside Glucose 169 mg/dL (70-110)
--- NOTE | 2021-08-28 12:20 | STRESSREP_ITS ---
Stress Test Report Date: 08-28-2021 Procedure: Pharmacologic stress nuclear imaging study Indications: CAD; PCI; CABG; CHF; cardiomyopathy; ICD Consent: Per the patient Procedure: The patient underwent pharmacologic (Regadenoson 0.4mg ) evaluation with a peak heart rate of 97 beats per minute (71% predicted maximal heart rate) and a peak blood pressure of 120/88 mmHg. The baseline ECG demonstrated electronic ventricular paced rhythm. The peak pharmacologic ECG demonstrated continued electronic ventricular paced rhythm. There were no cardiac dysrhythmias pretest, during pharmacologic infusion, or recovery. There was no complaint of chest discomfort during pharmacologic infusion or recovery. The examination was discontinued secondary to completion of protocol. Impression: 1. Pharmacologic (Regadenoson) evaluation 2. Peak pharmacologic ECG with continued electronic ventricular paced rhythm. 3. There were no cardiac dysrhythmias pretest, during pharmacologic infusion, or recovery. 4. Nuclear images pending Myocardial perfusion imaging study: Technique: The patient was injected with 12.0 millicuries of technetium 99m Cardiolite and subsequently rest SPECT Cardiolite nuclear imaging was obtained in the horizontal long, vertical long, and short axis views. The patient underwent pharmacologic (Regadenoson) evaluation with a peak heart rate of 97 beats per minute (71% percent predicted maximal heart rate) and a peak blood pressure of 120/88 mmHg. The patient was injected with 34.3 millicuries of technetium 99m Cardiolite and subsequently stress SPECT Cardiolite nuclear imaging was obtained in the horizontal long, vertical long, and short axis views. A gated Cardiolite study at peak stress was obtained. Interpretation: Rest and stress SPECT Cardiolite nuclear imaging status post realignment, normalization, and attenuation correction demonstrate the appearance of diminished absence of myocardial perfusion/tracer uptake in the mid to distal anterior and anteroseptal segments as well as the basal to distal inferior segments as well as the apical segments. There is diminished end systolic thickening and brightening. The gated Cardiolite study demonstrates diminished myocardial thickening and inward wall motion. The reported LVEF is 13%. Impression: 1. Rest and stress SPECT Cardiolite nuclear imaging demonstrate myocardial perfusion changes compatible with areas of previous myocardial injury/infarction with no myocardial perfusion changes considered diagnostic for associated stress-induced myocardial ischemia. 2. The gated Cardiolite study reports an LVEF of 13%. This note was generated with [employer] software. It may contain incorrect words, spelling, and punctuation that were not noted in checking the note before signing.
--- NOTE | 2021-08-28 12:48 | PN.CARD_ITS ---
Subjective Subjective The patient was evaluated earlier this day. He appeared to be resting comfortably in the supine position. He felt his breathing was back to his normal. He had no new acute complaints. Objective Data Vital Signs: Vital Signs Temp Pulse Resp BP Pulse Ox 97.4 F L 92 20 H 106/72 94 08/28/21 08:34 08/28/21 08:34 08/28/21 08:34 08/28/21 08:34 08/28/21 10:59 Oxygen Flow Rate (L/min) [ 0 AMBULATING on Room Air] Oxygen Flow Rate (L/min) [At 0 REST on Room Air] Oxygen Delivery Method Room Air Weight: 206 lb 5.643 oz Body Mass Index (BMI) 32.3 Intake & Output: Intake and Output for Last 24 Hours 08/26/21 08/27/21 08/28/21 23:59 23:59 23:59 Intake Total 600 / 600 Output Total 675 / 1175 500 / 500 Balance -5 / 295 -75 / -575 -500 / -500 Lab / Micro Data Result Diagrams: 08/28/21 06:15 08/28/21 06:15 Labs: Laboratory Results - last 24 hr 08/27/21 16:29: POC Glucose 183 H 08/28/21 05:36: POC Glucose 114 H 08/28/21 06:15: WBC 6.2, RBC 4.45 L, Hgb 13.9, Hct 42.2, MCV 94.8 H, MCH 31.2, MCHC 32.9, RDW Std Deviation 49.3 H, RDW Coeff of Gavino 14.1, Plt Count 190, MPV 12.4 H, Immature Gran % (Auto) 0.300, Neut % (Auto) 68.0, Lymph % (Auto) 15.4 L, [place] % (Auto) 11.7 H, Eos % (Auto) 3.8, Baso % (Auto) 0.8, Absolute Neuts (auto) 4.2, Absolute Lymphs (auto) 0.96, Nucleated RBC % 0 08/28/21 06:15: PT 28.0 H, INR 2.7 08/28/21 06:15: Sodium 136, Potassium 3.7, Chloride 103, Carbon Dioxide 28.0, Anion Gap 5, BUN 28 H, Creatinine 1.88 H, Estim Creat Clear Calc 27.83, Est GFR (MDRD) Af Amer 44 L, Est GFR (MDRD) Non-Af 37 L, BUN/Creatinine Ratio 14.9, Glucose 110 H, Calcium 9.1 08/28/21 11:28: POC Glucose 169 H Cardiology Labs/Tests 08/28/21 06:15: WBC 6.2, RBC 4.45 L, Hgb 13.9, Hct 42.2, MCV 94.8 H, MCH 31.2, MCHC 32.9, Plt Count 190, MPV 12.4 H, Immature Gran % (Auto) 0.300, Neut % (Auto) 68.0, Lymph % (Auto) 15.4 L, [place] % (Auto) 11.7 H, Eos % (Auto) 3.8, Baso % (Auto) 0.8, Absolute Neuts (auto) 4.2, Nucleated RBC % 0 08/28/21 06:15: PT 28.0 H, INR 2.7 08/28/21 06:15: Sodium 136, Potassium 3.7, Chloride 103, Carbon Dioxide 28.0, Anion Gap 5, BUN 28 H, Creatinine 1.88 H, Est GFR (MDRD) Af Amer 44 L, Est GFR (MDRD) Non-Af 37 L, BUN/Creatinine Ratio 14.9, Glucose 110 H, Calcium 9.1 Rhythm: Electronic ventricular paced rhythm Stress Test: Stress Test Report Date: 08-28-2021 Procedure: Pharmacologic stress nuclear imaging study Indications: CAD; PCI; CABG; CHF; cardiomyopathy; ICD Consent: Per the patient Procedure: The patient underwent pharmacologic (Regadenoson 0.4mg ) evaluation with a peak heart rate of 97 beats per minute (71% predicted maximal heart rate) and a peak blood pressure of 120/88 mmHg. The baseline ECG demonstrated electronic ventricular paced rhythm. The peak pharmacologic ECG demonstrated continued electronic ventricular paced rhythm. There were no cardiac dysrhythmias pretest, during pharmacologic infusion, or recovery. There was no complaint of chest discomfort during pharmacologic infusion or recovery. The examination was discontinued secondary to completion of protocol. Impression: 1. Pharmacologic (Regadenoson) evaluation 2. Peak pharmacologic ECG with continued electronic ventricular paced rhythm. 3. There were no cardiac dysrhythmias pretest, during pharmacologic infusion, or recovery. 4. Nuclear images pending Myocardial perfusion imaging study: Technique: The patient was injected with 12.0 millicuries of technetium 99m Cardiolite and subsequently rest SPECT Cardiolite nuclear imaging was obtained in the horizontal long, vertical long, and short axis views. The patient underwent pharmacologic (Regadenoson) evaluation with a peak heart rate of 97 beats per minute (71% percent predicted maximal heart rate) and a peak blood pressure of 120/88 mmHg. The patient was injected with 34.3 millicuries of technetium 99m Cardiolite and subsequently stress SPECT Cardiolite nuclear imaging was obtained in the horizontal long, vertical long, and short axis views. A gated Cardiolite study at peak stress was obtained. Interpretation: Rest and stress SPECT Cardiolite nuclear imaging status post realignment, normalization, and attenuation correction demonstrate the appearance of diminished absence of myocardial perfusion/tracer uptake in the mid to distal an terior and anteroseptal segments as well as the basal to distal inferior segments as well as the apical segments. There is diminished end systolic thickening and brightening. The gated Cardiolite study demonstrates diminished myocardial thickening and inward wall motion. The reported LVEF is 13%. Impression: 1. Rest and stress SPECT Cardiolite nuclear imaging demonstrate myocardial perfusion changes compatible with areas of previous myocardial injury/infarction with no myocardial perfusion changes considered diagnostic for associated stress-induced myocardial ischemia. 2. The gated Cardiolite study reports an LVEF of 13%. Physical Exam Const alert, oriented x3 and no apparent distress Orientation / Consciousness: awake HEENT normocephalic, head/scalp atraumatic and hearing grossly normal bilaterally Eyes PERRL, EOMs intact bilaterally, conjunctivae normal and no scleral icterus Neck full ROM, supple and no JVD Resp clear to auscultation bilaterally Cardio regular rate, regular rhythm, S1 normal heart sound and S2 normal heart sound GI normal to inspection, nondistended, normoactive bowel sounds Extremity no pedal edema Skin no rashes or lesions noted Psych mental status grossly normal Assessment & Plan Assessment/Plan (1) Heart failure: QUALIFIERS: Heart failure type: systolic PLAN: At the moment the patient appears to be symptomatically stable resting comfortably/breathing comfortably without O2 support in the supine position. He has undergone noninvasive valuation. Thus far this is included a pharmacolo gic stress nuclear imaging study. There was no obvious findings suggesting ongoing myocardial ischemia. Thus there are no immediate plans for further evaluation with cardiac catheterization. He will continue medical management. (2) Atherosclerotic heart disease of [place] coronary artery without angina pectoris: QUALIFIERS: [place] vs. transplanted heart: [place] heart Qualified Code(s): I25.10 - Atherosclerotic heart disease of [place] coronary artery without angina pectoris PLAN: The patient has a history of underlying CAD. He has undergone percutaneous and surgical based revascularization. His pharmacologic stress nuclear imaging study is compatible with previous MS with no obvious ongoing myocardial ischemia. At the present time he will continue medical management. (3) History of coronary artery stent placement: PLAN: He does have a history of PCI including PCI to a bypass graft. Again at the moment there is no evidence of acute coronary syndrome or ongoing myocardial ischemia based on his noninvasive studies. He will continue medical therapy. (4) Presence of stent of bypass graft: PLAN: He does have a history of CABG. The details are as previously documented. At the present time he appears to be doing well with no ongoing symptoms suspicious for underlying acute coronary syndrome. He will continue medical therapy and follow-up. (5) Ischemic cardiomyopathy: PLAN: He does have an ischemic mediated cardiomyopathy with diminished LV systolic function/LVEF. At the present time he will continue medical management. He does have an ICD in place. (6) Paroxysmal atrial fibrillation: PLAN: He has a history of both atrial and ventricular dysrhythmias. Based upon his atrial dysrhythmias he has been on medical management and this has included anticoagulant therapy. (7) Paroxysmal ventricular tachycardia: PLAN: He does have a history of ventricular dysrhythmias as well. Again he has undergone extensive noninvasive and invasive valuation locally and at [facility]. He has continued medical therapy. He does have an ICD in place. (8) 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: PLAN: He does have an underlying ICD. He has been following with the [facility] antiarrhythmic clinic/device clinic. (9) [facility] (current) use of anticoagulants: PLAN: He is continuing anticoagulant therapy with adjustment as needed. (10) HLD (hyperlipidemia): QUALIFIERS: Hyperlipidemia type: unspecified Qualified Code(s): E78.5 - Hyperlipidemia, unspecified PLAN: He should continue risk factor modification medical therapy. (11) Hypertension: QUALIFIERS: Hypertension type: essential hypertension Qualified Code(s): I10 - Essential (primary) hypertension PLAN: His blood pressure can be followed with adjustment of his medications as deemed appropriate. Addt'l Comments This note was generated using a voice recognition system and there may be incorrect words, spelling or punctuation that were not noted when reviewing the office note prior to saving.
[2021-08-28] MEDS: Atorvastatin Calcium 80 MG Tablet PO (12:54)
[2021-08-28] MEDS: predniSONE 20 MG Tablet 40 MG PO (12:54)
[2021-08-28] MEDS: Pantoprazole Sodium 40 MG Tablet PO (12:54)
[2021-08-28] MEDS: Cholecalciferol (VIT D3) 25 MCG TABLET (1,000 UNITS) PO (12:54)
[2021-08-28] MEDS: SACUBITRIL/VALSARTAN 49-51 MG TABLET 1 EACH PO ×2 (12:54→21:12)
[2021-08-28] MEDS: Fenofibrate 145 MG Tablet PO (12:54)
[2021-08-28] MEDS: Calcium (Elemental) 500 MG Tablet PO (12:54)
[2021-08-28] MEDS: Furosemide 40 MG Tablet PO (12:54)
[2021-08-28] MEDS: Omega-3 Acid Ethyl Esters 1 GM Capsule 2 GM PO (12:55)
[2021-08-28] MEDS: Folic Acid 1 MG Tablet 2 MG PO (12:55)
[2021-08-28] MEDS: Sertraline 50 MG Tablet 25 MG PO (12:55)
[2021-08-28] MEDS: Levothyroxine 75 MCG Tablet PO (12:55)
[2021-08-28] MEDS: Allopurinol 100 MG Tablet PO (12:55)
[2021-08-28] MEDS: Gabapentin 100 MG Capsule 200 MG PO ×2 (12:55→21:11)
[2021-08-28] MEDS: Spironolactone 25 MG Tablet PO (12:55)
--- NOTE | 2021-08-28 16:07 | PN.HOSP_ITS ---
Subjective Subjective Patient seen and examined. was by his bedside. He has no complaints and feels well. Review of systems is otherwise negative. He has remained hemodynamically stable. Objective Data Objective Data Vital Signs: Vital Signs Temp Pulse Resp BP Pulse Ox 97.9 F 91 18 97/71 93 08/28/21 14:13 08/28/21 14:52 08/28/21 14:13 08/28/21 14:13 08/28/21 14:13 Oxygen Flow Rate (L/min) [ 0 AMBULATING on Room Air] Oxygen Flow Rate (L/min) [At 0 REST on Room Air] Oxygen Delivery Method Room Air Weight: 206 lb 5.643 oz Body Mass Index (BMI) 32.3 Intake & Output: Intake and Output for Last 24 Hours 08/26/21 08/27/21 08/28/21 23:59 23:59 23:59 Intake Total 600 / 600 Output Total 675 / 1175 500 / 500 Balance -5 / 295 -75 / -575 -500 / -500 Lab / Micro Data Result Diagrams: 08/28/21 06:15 08/28/21 06:15 Labs: Laboratory Results - last 24 hr 08/27/21 16:29: POC Glucose 183 H 08/28/21 05:36: POC Glucose 114 H 08/28/21 06:15: WBC 6.2, RBC 4.45 L, Hgb 13.9, Hct 42.2, MCV 94.8 H, MCH 31.2, MCHC 32.9, RDW Std Deviation 49.3 H, RDW Coeff of Gavino 14.1, Plt Count 190, MPV 12.4 H, Immature Gran % (Auto) 0.300, Neut % (Auto) 68.0, Lymph % (Auto) 15.4 L, [place] % (Auto) 11.7 H, Eos % (Auto) 3.8, Baso % (Auto) 0.8, Absolute Neuts (auto) 4.2, Absolute Lymphs (auto) 0.96, Nucleated RBC % 0 08/28/21 06:15: PT 28.0 H, INR 2.7 08/28/21 06:15: Sodium 136, Potassium 3.7, Chloride 103, Carbon Dioxide 28.0, Anion Gap 5, BUN 28 H, Creatinine 1.88 H, Estim Creat Clear Calc 27.83, Est GFR (MDRD) Af Amer 44 L, Est GFR (MDRD) Non-Af 37 L, BUN/Creatinine Ratio 14.9, Glu cose 110 H, Calcium 9.1 08/28/21 11:28: POC Glucose 169 H Micro: Microbiology 08/26/21 20:10 Urine, Clean Catch Streptococcus pneumoniae Antigen (M - Final 08/26/21 20:10 Urine, Clean Catch Legionella Antigen - Final 08/26/21 10:13 Mucosa - Nose Respiratory Panel (PCR) - Final Physical Exam Const alert, oriented x3 and no apparent distress Exam Limitations: no limitations HEENT head/scalp atraumatic and moist oral mucous membranes Head and Scalp: normocephalic Eyes PERRL, EOMs intact bilaterally and conjunctivae normal Neck no lymphadenopathy Resp Resp Narrative: diminished breath sounds bibasally, no wheezes or crackles. On room air. Cardio regular rate, regular rhythm, S1 normal heart sound, S2 normal heart sound and no murmurs GI normal to inspection, nondistended, normoactive bowel sounds, soft to palpation and non-tender Extremity normal to inspection, full ROM and no clubbing, cyanosis or edema Peripheral Pulses: Yes pulses 2+ throughout Skin no rashes or lesions noted Neuro oriented x3 and CN's II-XII intact bilaterally Sensorium / Orientation: awake and alert Psych affect normal Assessment & Plan Assessment/Plan (1) Heart failure: QUALIFIERS: Heart failure type: systolic PLAN: #dyspnea * on torsemide * CT chest showed residual left lung changes related to empyema and chest tube placement * on prednisone 40mg daily x 5 days * 2D echo pending * had stress test today which didnt show any evidence of any ischemia, and showed evidence of old AR. * cardiology on board. * #HFrEF * compensated. on aldactone and entresto. * fluid restriction to 1500cc daily. * has cardioMEMS device in place, and follows up at [facility] heart failure clinic. * #Paroxysmal afib: on amiodarone and coumadin #CAD s/p CABG: on plavix, crestor and fenofibrate. #Gout: on allopurinol. #CKD 3: Cr is 1.88. Baseline is ~ 1.5. Will monitor #Type 2 diabetes mellitus * on lantus 42 units qam. * ISS. Accuchecks ACHS * #Hypothyroidism: on synthroid. #GERD: on PPI #Depression: On Zoloft #DVT prophylaxis: Not indicated as patient is on Coumadin Charges/Coding Visit Charges Inpatient E&M: 55101 Subs Hosp L2
[2021-08-28] MEDS: Insulin Lispro 100 UNIT/ML INSULN.PEN SC (17:05)
[2021-08-28 17:16] LABS: Bedside Glucose 251 mg/dL (70-110)
[2021-08-29 01:52] VITALS: O2SAT 92
[2021-08-29 03:00] VITALS: PULSE 87
[2021-08-29 05:41] VITALS: BP 94/63; PULSE 89; RESP 18; TEMP 36.7; O2SAT 93
[2021-08-29 05:44] LABS: Absolute Lymphocyte Count 0.58 X10^3/uL (0.83-4.51); Absolute Neutrophil Count 5.1 X10^3/uL (2.0-7.7); Basophil# 0.01 X10^3/uL; Basophil% 0.2 % (0-1); Eosinophil# 0.01 X10^3/uL; Eosinophils% 0.2 % (0-5); Hematocrit 42.7 % (40-54); Hemoglobin 14.1 g/dL (13.0-16.5); Lymphocyte # 0.58 X10^3/ul (0.83-4.51); Lymphocyte % 9.6 % (19-41); Mean Corpuscular Hgb 31.2 pg (27.0-32.0); Mean Corpuscular Volume 94.5 fL (80-94); Mean Platelet Vol. 11.9 fl (6.2-12.0); Monocyte% 6.6 % (0-10); NRBC Flagged by Analyzer 0 % (0-5); Neutrophil # 5.05 X10^3/uL (2.7-7.7); Neutrophil % 83.1 % (47-70); POSITIVE DIFFERENTIAL YES; Platelet Count 207 K/mm3 (150-450); RBC Distribution Width CV 13.9 % (11.6-14.6); RBC Distribution Width SD 48.4 fl (35.1-43.9); Red Blood Count 4.52 M/mm3 (4.6-6.2); White Blood Count 6.1 K/mm3 (4.4-11.0)
[2021-08-29 05:56] LABS: Differential Indicated SCAN CRITERIA MET
[2021-08-29 06:12] LABS: Anion Gap 10 (5-15); BUN 33 mg/dL (7-18); BUN/Creat Ratio 17.9 RATIO (10-20); Chloride 102 mmol/L (98-107); Creatinine, Serum 1.84 mg/dL (0.70-1.30); EST Glomerular Filtration Rate 38 mL/min (>60); Est Glom Filt Rate - Afr Amer 45 mL/min (>60); Estimated Creatinine Clearance 28.44 ml/min; Glucose 162 mg/dL (74-106); Potassium 3.9 mmol/L (3.5-5.1); Sodium Level 135 mmol/L (136-145)
[2021-08-29] MEDS: Insulin Lispro 100 UNIT/ML INSULN.PEN SC ×2 (06:31→11:11)
[2021-08-29 06:45] LABS: Bedside Glucose 168 mg/dL (70-110)
[2021-08-29 07:00] VITALS: PULSE 94
--- NOTE | 2021-08-29 08:29 | PN.CARD_ITS ---
Subjective Subjective The patient is awake and alert. He states he slept well last night. He did not complain of any symptoms of orthopnea or PND. He did not require any O2 support. He has had no other concerning chest discomfort, palpitations, or development of lower extremity peripheral pitting edema. Objective Data Vital Signs: Vital Signs Temp Pulse Resp BP Pulse Ox 98.0 F 94 18 94/63 93 08/29/21 05:41 08/29/21 07:00 08/29/21 05:41 08/29/21 05:41 08/29/21 05:41 Oxygen Flow Rate (L/min) [ 0 AMBULATING on Room Air] Oxygen Flow Rate (L/min) [At 0 REST on Room Air] Oxygen Delivery Method Room Air Weight: 207 lb 0.225 oz Body Mass Index (BMI) 32.3 Intake & Output: Intake and Output for Last 24 Hours 08/27/21 08/28/21 08/29/21 23:59 23:59 23:59 Intake Total 600 / 600 640 / 640 Output Total 675 / 1175 750 / 750 150 / 150 Balance -75 / -575 -110 / -110 -150 / -150 Lab / Micro Data Result Diagrams: 08/29/21 05:10 08/29/21 05:10 Labs: Laboratory Results - last 24 hr 08/28/21 11:28: POC Glucose 169 H 08/28/21 17:04: POC Glucose 251 H 08/29/21 05:10: WBC 6.1, RBC 4.52 L, Hgb 14.1, Hct 42.7, MCV 94.5 H, MCH 31.2, MCHC 33.0, RDW Std Deviation 48.4 H, RDW Coeff of Gavino 13.9, Plt Count 207, MPV 11.9, Immature Gran % (Auto) 0.300, Neut % (Auto) 83.1 H, Lymph % (Auto) 9.6 L, [place] % (Auto) 6.6, Eos % (Auto) 0.2, Baso % (Auto) 0.2, Absolute Neuts (auto) 5.1, Absolute Lymphs (auto) 0.58 L, Nucleated RBC % 0 08/29/21 05:10: Sodium 135 L, Potassium 3.9, Chloride 102, Carbon Dioxide 23.0, Anion Gap 10, BUN 33 H, Creatinine 1.84 H, Estim Creat Clear Calc 28.44, Est GFR (MDRD) Af Amer 45 L, Est GFR (MDRD) Non-Af 38 L, BUN/Creatinine Ratio 17.9, Glucose 162 H, Calcium 9.0 08/29/21 06:30: POC Glucose 168 H Cardiology Labs/Tests 08/29/21 05:10: WBC 6.1, RBC 4.52 L, Hgb 14.1, Hct 42.7, MCV 94.5 H, MCH 31.2, MCHC 33.0, Plt Count 207, MPV 11.9, Immature Gran % (Auto) 0.300, Neut % (Auto) 83.1 H, Lymph % (Auto) 9.6 L, [place] % (Auto) 6.6, Eos % (Auto) 0.2, Baso % (Auto) 0.2, Absolute Neuts (auto) 5.1, Nucleated RBC % 0 08/29/21 05:10: Sodium 135 L, Potassium 3.9, Chloride 102, Carbon Dioxide 23.0, Anion Gap 10, BUN 33 H, Creatinine 1.84 H, Est GFR (MDRD) Af Amer 45 L, Est GFR (MDRD) Non-Af 38 L, BUN/Creatinine Ratio 17.9, Glucose 162 H, Calcium 9.0 Rhythm: Electronic ventricular paced rhythm ECHO: As noted below Radiography Diagnostic Testing: Radiology Impression Echocardiogram 08/26/21 11:16 Interpretation Summary Normal LV size. The estimated ejection fraction is 25 %. Moderately severe segmental systolic dysfunction (see wall motion). The study was technically limited. The study was technically difficult. Contrast injection was performed. Ordering Physician: Zita Menendez Referring Physician: Angel Lang Performed By: Ezra Monaco RCS Physical Exam Narrative Seen evaluate it at bedside along with the nursing staff Alert and orientated x3 and was able to give a detailed history about his medical problems. Review of the cardiac telemetry revealed paced cardiac rhythm. Had ICD/pacemaker on the left infraclavicular area S1-S2 is regular There is no murmur Chest examination minimal bilateral basilar rales Examination lower extremity +1 lower extremity edema. Const alert, oriented x3 and no apparent distress Orientation / Consciousness: awake HEENT normocephalic, head/scalp atraumatic and hearing grossly normal bilaterally Eyes PERRL, EOMs intact bilaterally, conjunctivae normal and no scleral icterus Neck full ROM, supple and no JVD Resp Auscultation: diminished lung sounds left (Chronically diminished) lower Cardio regular rate, regular rhythm, S1 normal heart sound and S2 normal heart sound GI normal to inspection, nondistended, normoactive bowel sounds Extremity no pedal edema Skin no rashes or lesions noted Psych mental status grossly normal Assessment & Plan Assessment/Plan (1) Heart failure: QUALIFIERS: Heart failure type: systolic PLAN: At the moment the patient appears to be symptomatically stable resting comfortably/breathing comfortably without O2 support in the supine position. He has undergone noninvasive valuation. Thus far this has included a transthoracic echocardiogram and a pharmacologic stress nuclear imaging study. His overall LV systolic function/LVEF remains diminished. There was no obvious findings suggesting ongoing myocardial ischemia. Thus there are no immediate plans for further evaluation with cardiac catheterization. He will continue medical management. (2) Atherosclerotic heart disease of [place] coronary artery without angina pectoris: QUALIFIERS: [place] vs. transplanted heart: [place] heart Qualified Code(s): I25.10 - Atherosclerotic heart disease of [place] coronary artery without angina pectoris PLAN: The patient has a history of underlying CAD. He has undergone percutaneous and surgical based revascularization. His pharmacologic stress nuclear imaging study is compatible with previous [place] wi th no obvious ongoing myocardial ischemia. At the present time he will continue medical management. (3) History of coronary artery stent placement: PLAN: He does have a history of PCI including PCI to a bypass graft. Again at the moment there is no evidence of acute coronary syndrome or ongoing myocardial ischemia based on his noninvasive studies. He will continue medical therapy. (4) Presence of stent of bypass graft: PLAN: He does have a history of CABG. The details are as previously documented. At the present time he appears to be doing well with no ongoing symptoms suspicious for underlying acute coronary syndrome. He will continue medical therapy and follow-up. (5) Ischemic cardiomyopathy: PLAN: He does have an ischemic mediated cardiomyopathy with diminished LV systolic function/LVEF. At the present time he will continue medical management. He does have an ICD in place. (6) Paroxysmal atrial fibrillation: PLAN: He has a history of both atrial and ventricular dysrhythmias. Based upon his atrial dysrhythmias he has been on medical management and this has included anticoagulant therapy. (7) Paroxysmal ventricular tachycardia: PLAN: He does have a history of ventricular dysrhythmias as well. Again he has undergone extensive noninvasive and invasive valuation locally and at [facility]. He has continued medical therapy. He does have an ICD in place. (8) 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: PLAN: He does have an underlying ICD. He has been following with the [facility] antiarrhythmic clinic/device clinic. (9) [place] (current) use of anticoagulants: PLAN: He is continuing anticoagulant therapy with adjustment as needed. (10) HLD (hyperlipidemia): QUALIFIERS: Hyperlipidemia type: unspecified Qualified Code(s): E78.5 - Hyperlipidemia, unspecified PLAN: He should continue risk factor modification medical therapy. (11) Hypertension: QUALIFIERS: Hypertension type: essential hypertension Qualified Code(s): I10 - Essential (primary) hypertension PLAN: His blood pressure can be followed with adjustment of his medications as deemed appropriate. Addt'l Comments Overall, the present time, the patient appears to be symptomatically stable. There are no immediate plans for additional cardiac diagnostic studies/intervention. He will continue medical therapy which includes a combination of medication for his cardiovascular conditions of CAD/revascularization, diminished LV systolic function, cardiac dysrhythmias, etc. This would include continuing his diuretic therapy as per his [facility] CHF physician with torsemide along with his spironolactone/Aldactone therapy and continuing his antiarrhythmic therapy as per his [facility] EP physician with amiodarone. He will need continued outpatient cardiovascular follow-up including his outpatient [facility] follow-up with respect to his CHF team and his electrophysiology team. This note was generated using a voice recognition system and there may be incorrect words, spelling or punctuation that were not noted when reviewing the office note prior to saving.
[2021-08-29 08:39] VITALS: BP 92/69; PULSE 65; RESP 18; TEMP 36.5; O2SAT 94
[2021-08-29] MEDS: Folic Acid 1 MG Tablet 2 MG PO (08:47)
[2021-08-29] MEDS: Fenofibrate 145 MG Tablet PO (08:48)
[2021-08-29] MEDS: Allopurinol 100 MG Tablet PO (08:48)
[2021-08-29] MEDS: Calcium (Elemental) 500 MG Tablet PO (08:48)
[2021-08-29] MEDS: predniSONE 20 MG Tablet 40 MG PO (08:48)
[2021-08-29] MEDS: Clopidogrel Bisulfate 75 MG Tablet PO (08:48)
[2021-08-29] MEDS: SACUBITRIL/VALSARTAN 49-51 MG TABLET 1 EACH PO (08:49)
[2021-08-29] MEDS: Gabapentin 100 MG Capsule 200 MG PO (08:50)
[2021-08-29] MEDS: Atorvastatin Calcium 80 MG Tablet PO (08:50)
[2021-08-29] MEDS: Omega-3 Acid Ethyl Esters 1 GM Capsule 2 GM PO (08:50)
[2021-08-29] MEDS: Pantoprazole Sodium 40 MG Tablet PO (08:51)
[2021-08-29] MEDS: Cholecalciferol (VIT D3) 25 MCG TABLET (1,000 UNITS) PO (08:51)
[2021-08-29] MEDS: Levothyroxine 75 MCG Tablet PO (08:51)
[2021-08-29] MEDS: Sertraline 50 MG Tablet 25 MG PO (08:51)
--- NOTE | 2021-08-29 12:57 | CHAPLAIN ---
Type of Pastoral Visit _x__ Initial Visit ___ Follow-up Visit ___ On-call Visit ___ General Patient Visit ___ Spiritual Assessment ___ Family Conference ___ Bereavement ___ Rapid Response ___ Code Blue ___ Other (describe below) Pastoral Care Referral From _x__ Patient ___ Family ___ Nurse ___ Physician ___ Bedspring Assembler ___ Bisque Placer ___ Other (describe below) Sacrament/Intervention _x__ Active listening ___ Anointing ___ Yazidi ___ Bereavement ___ Communion ___ Karin exploration ___ _x__ Life review x Prayer ___ Reconciliation ___ Sacrament of Sick _x__ Supportive presence ___ Wedding ___ Other (describe below) Pastoral Comments
--- NOTE | 2021-08-29 13:39 | DS.PCM_ITS ---
Providers Date of Admission: 08/26/21 Primary Care Physician: Dr. Angel Lang MD Consultations 08/27/21 08:10 Consult: Cardiology Routine Consulting Provider: Nohemy Yates Reason for Consult: SOB ? 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 transplanted heart: [place] heart Qualified Code(s): I25.10 - Atherosclerotic heart disease of [place] coronary artery without angina pectoris (3) History of coronary artery stent placement: Status: Chronic Code(s): Z95.5 - Presence of coronary angioplasty implant and graft (4) Presence of stent of bypass graft: Status: Chronic Code(s): Z95.828 - Presence of other vascular implants and grafts (5) Ischemic cardiomyopathy: Status: Chronic Code(s): I25.5 - Ischemic cardiomyopathy (6) Paroxysmal atrial fibrillation: Status: Chronic Code(s): I48.0 - Paroxysmal atrial fibrillation (7) Paroxysmal ventricular tachycardia: Status: Chronic Code(s): I47.2 - Ventricular tachycardia (8) 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: Status: Chronic Code(s): Z95.810 - Presence of automatic (implantable) cardiac defibrillator (9) skilled nursing (current) use of anticoagulants: Status: Chronic Code(s): Z79.01 - skilled nursing (current) use of anticoagulants (10) HLD (hyperlipidemia): Status: Chronic Code(s): E78.5 - Hyperlipidemia, unspecified Qualifiers: Hyperlipidemia type: unspecified Qualified Code(s): E78.5 - Hyperlipidemia, unspecified (11) Hypertension: Status: Chronic Code(s): I10 - Essential (primary) hypertension Qualifiers: Hypertension type: essential hypertension Qualified Code(s): I10 - Essential (primary) hypertension Medications at Discharge Home Medications allopurinol 100 mg PO DAILY 11/27/19 clopidogrel 75 mg PO DAILY 11/27/19 pantoprazole 40 mg PO DAILY 11/27/19 amiodarone 200 mg tablet 200 mg PO DAILY #90 tab 02/26/20 levothyroxine 75 mcg tablet 75 mcg PO DAILY 04/25/20 spironolactone 25 mg tablet 25 mg PO DAILY #90 tab 12/05/20 omega-3 fatty acids-fish oil 2 each PO DAILY 01/07/21 sertraline 25 mg PO DAILY 01/07/21 torsemide 40 mg PO BID 01/07/21 pen needle, diabetic 32 gauge x #100 ea 03/10/21 rosuvastatin 40 mg tablet 40 mg PO DAILY tab 03/10/21 cholecalciferol (vitamin D3) 25 mcg (1,000 unit) tablet 25 mcg PO DAILY 04/13/21 gabapentin 100 mg capsule 200 mg PO BID cap 04/13/21 insulin glargine 100 unit/mL (3 mL) subcutaneous pen 42 unit SUBCUT QAM ml 04/13/21 nitroglycerin 0.4 mg sublingual tablet 0.4 mg SUBLINGUAL Q5M PRN MDD 3 04/13/21 calcium citrate 200 mg (950 mg) tablet 600 mg PO DAILY tab 05/05/21 sitagliptin 50 mg tablet 50 mg PO DAILY #90 tab 05/05/21 folic acid 1 mg tablet 2 mg PO DAILY #180 tab 05/08/21 warfarin 1 mg tablet 1 mg PO MOTUWETHFRSA #90 tab 08/10/21 warfarin 2 mg tablet 2 mg PO LIAO #14 tab 08/10/21 Entresto 1 ea PO BID 08/26/21 fenofibrate micronized 200 mg PO DAILY 08/26/21 Hospital Course Operations None Procedures 2-D Echocardiogram and Nuclear stress test Summary of Care Provided Minutes Spent on Discharge: 40 Hospital Course: Patient is an 81-year-old male with a past medical history as outlined was admitted through the ED on 08/26/2021 with a complaint of shortness of breath which have been worsening over the last week. Patient had an antecedent history of such shortness of breath and was found to have wide- complex tachycardia and sent to [facility] in November 2019 where he had stenting in hospital was also complicated by cardiac arrest. This was subsequently complicated by a large left pleural effusion and underlying lung consolidation concerning for empyema so he was transferred to [facility]. He did not have any surgery as he was a poor surgical candidate and was managed medically. Of note, he also had an ICD placed and a CardioMEMS device placed in December 2020. On admission, chest x-ray showed chronic findings in the left lung base consistent with previous empyema. BNP was elevated. He was admitted and managed for acute on chronic exacerbation of heart failure with reduced ejection fraction. He was diuresed with IV Lasix. Cardiology was subsequently consulted and patient had a stress test which was negative for any evidence of new ischemia and only showed evidence of previous ischemia and CAD. He also had 2D echo which showed EF of 25% with moderately severe segmental systolic dysfunction. Patient remained stable and his shortness of breath resolved. He was discharged home on 08/29/2021 and he is to follow-up with his primary care doctor and cardiology. Patient was seen and examined prior to discharge. He had no complaints and review of systems otherwise negative. Labs and vitals reviewed. Home medic ation reviewed and reconciled. Physical Exam Const alert, oriented x3 and no apparent distress General Appearance: cooperative Exam Limitations: no limitations HEENT normocephalic, head/scalp atraumatic, hearing grossly normal bilaterally and moist oral mucous membranes Eyes PERRL, EOMs intact bilaterally and conjunctivae normal Neck no lymphadenopathy, supple, no JVD and no carotid bruits Resp normal respiratory effort, no retractions, no use of accessory muscles and clear to auscultation bilaterally Resp Narrative: diminished breath sounds bibasally, no wheezes or crackles. On room air. Auscultation: crackles; Negative for rales, rhonchi or wheezes Cardio regular rate, regular rhythm, S1 normal heart sound, S2 normal heart sound, no murmurs, no rub, no gallops, no clicks and no JVD Cardio Narrative: ICD noted left upper chest GI normal to inspection, nondistended, normoactive bowel sounds, soft to palpation, non-tender and non-distended Extremity normal to inspection, full ROM and no clubbing, cyanosis or edema Extremity Narrative: Trace bilateral lower extremity pitting edema, no cyanosis or clubbing Skin no rashes or lesions noted, no wounds, skin turgor normal, no jaundice, no petechiae and no mottling Neuro oriented x3, CN's II-XII intact bilaterally, moves all extremities and no focal motor deficits Sensorium / Orientation: awake, alert, oriented to person, oriented to place and oriented to time Speech: speech normal Psych affect normal Weight / BMI Weight Weight: 207 lb 0.225 oz Body Mass Index (BMI) 32.3 ABG / Lab / Microbiology Data Result Diagrams: 08/29/21 05:10 08/29/21 05:10 Laboratory: Laboratory Results - last 24 hr 08/28/21 17:04: POC Glucose 251 H 08/29/21 05:10: WBC 6.1, RBC 4.52 L, Hgb 14.1, Hct 42.7, MCV 94.5 H, MCH 31.2, MCHC 33.0, RDW Std Deviation 48.4 H, RDW Coeff of [place]av[place] 13.9, Plt Count 207, MPV 11.9, Immature Gran % (Auto) 0.300, Neut % (Auto) 83.1 H, Lymph % (Auto) 9.6 L, [place] % (Auto) 6.6, Eos % (Auto) 0.2, Baso % (Auto) 0.2, Absolute Neuts (auto) 5.1, Absolute Lymphs (auto) 0.58 L, Nucleated RBC % 0 08/29/21 05:10: Sodium 135 L, Potassium 3.9, Chloride 102, Carbon Dioxide 23.0, Anion Gap 10, BUN 33 H, Creatinine 1.84 H, Estim Creat Clear Calc 28.44, Est GFR (MDRD) Af Amer 45 L, Est GFR (MDRD) Non-Af 38 L, BUN/Creatinine Ratio 17.9, Glucose 162 H, Calcium 9.0 08/29/21 06:30: POC Glucose 168 H Microbiology: Microbiology 08/26/21 20:10 Urine, Clean Catch Streptococcus pneumoniae Antigen (M - Final 08/26/21 20:10 Urine, Clean Catch Legionella Antigen - Final 08/26/21 10:13 Mucosa - Nose Respiratory Panel (PCR) - Final Radiography Diagnostic Testing: Radiology Impression Echocardiogram 08/26/21 11:16 Interpretation Summary Normal LV size. The estimated ejection fraction is 25 %. Moderately severe segmental systolic dysfunction (see wall motion). The study was technically limited. The study was technically difficult. Contrast injection was performed. Ordering Physician: Zita Menendez Referring Physician: Angel Lang Performed By: Ezra Monaco RCS D/C Instructions Discharge Diet: Low fat / Low cholesterol Discharge Activity: Return to Normal Activity Call your doctor if you observe: Shortness of breath, Dizziness, Swelling in the ankles and Chest pain Meaningful Use Info Meaningful Use Diagnoses (Choose all that apply): CHF CHF NATA/ARB ordered at discharge?: Yes Documented LVEF (%): 25 Discharge Plan Admission Admit Date/Time: 08/26/21 09:42 Primary Reason for Your Visit: acute on chronic heart failure Attending Provider: Allison Moran Primary Care Provider: Angel Lang Consulting Providers: Nohemy Yates Instructions Additional Instructions / Restrictions: follow up with your government services professional at [facility] in 1-2 weeks Discharge Orders/Prescriptions Prescriptions: Continued rosuvastatin 40 mg tablet 40 mg PO DAILY RF: 0 (DME) pen needle, diabetic [BD Ultra-Fine Lauren Pen Needle] 32 gauge x 5/32 needle See Rx Instructions .ROUTE .MEDSUPPLY Qty: 100 RF: 6 gabapentin 100 mg capsule 200 mg PO BID RF: 0 Januvia 50 mg tablet 50 mg PO DAILY Qty: 90 RF: 3 cholecalciferol (vitamin D3) 25 mcg (1,000 unit) tablet 25 mcg PO DAILY RF: 0 Lantus Solostar U-100 Insulin 100 unit/mL (3 mL) insulin pen 42 unit subcut QAM RF: 0 clopidogrel 75 MG tablet 75 mg PO DAILY RF: 0 allopurinol 100 MG tablet 100 mg PO DAILY RF: 0 pantoprazole 40 MG tablet 40 mg PO DAILY RF: 0 levothyroxine 75 mcg tablet 75 mcg PO DAILY RF: 0 nitroglycerin 0.4 mg tablet, sublingual 0.4 mg sublingual Q5M MDD 3 PRN (Reason: angina) RF: 0 torsemide 20 MG tablet 40 mg PO BID RF: 0 sertraline 25 MG tablet 25 mg PO DAILY RF: 0 omega-3 fatty acids-fish oil 1 EACH capsule 2 each PO DAILY RF: 0 calcium citrate 200 mg (950 mg) tablet 600 mg PO DAILY RF: 0 fenofibrate micronized 200 mg capsule 200 mg PO DAILY RF: 0 Entresto 49-51 mg tablet 1 ea PO BID RF: 0 amiodarone 200 mg tablet 200 mg PO DAILY Qty: 90 RF: 3 spironolactone 25 mg tablet 25 mg PO DAILY Qty: 90 RF: 3 folic acid 1 mg tablet 2 mg PO DAILY Qty: 180 RF: 3 warfarin 1 mg tablet 1 mg PO MOTUWETHFRSA Qty: 90 RF: 3 warfarin 2 mg tablet 2 mg PO LIAO Qty: 14 RF: 3 Referrals / Follow Up: Angel Lang MD [Primary Care Provider] - Within 2 Weeks Juan Manuel Wilkinson MD [STAFF PHYSICIAN] - Within 2 Weeks Disposition Disposition (needs filled in before D/C Order can be placed): Home, Self Care Charges/Coding Visit Charges Inpatient E&M: 86831 Disch Hosp
--- NOTE | 2021-08-29 14:07 | PHA.DC.MR ---
Pharmacy Service has performed discharge medication reconciliation for this patient. The patient's discharge medication list was reviewed for discrepancies and discrepancies were resolved. Home Medications allopurinol 100 mg PO DAILY 11/27/19 clopidogrel 75 mg PO DAILY 11/27/19 pantoprazole 40 mg PO DAILY 11/27/19 amiodarone 200 mg tablet 200 mg PO DAILY #90 tab 02/26/20 levothyroxine 75 mcg tablet 75 mcg PO DAILY 04/25/20 spironolactone 25 mg tablet 25 mg PO DAILY #90 tab 12/05/20 omega-3 fatty acids-fish oil 2 each PO DAILY 01/07/21 sertraline 25 mg PO DAILY 01/07/21 torsemide 40 mg PO BID 01/07/21 pen needle, diabetic 32 gauge x #100 ea 03/10/21 rosuvastatin 40 mg tablet 40 mg PO DAILY tab 03/10/21 cholecalciferol (vitamin D3) 25 mcg (1,000 unit) tablet 25 mcg PO DAILY 04/13/21 gabapentin 100 mg capsule 200 mg PO BID cap 04/13/21 insulin glargine 100 unit/mL (3 mL) subcutaneous pen 42 unit SUBCUT QAM ml 04/13/21 nitroglycerin 0.4 mg sublingual tablet 0.4 mg SUBLINGUAL Q5M PRN MDD 3 04/13/21 calcium citrate 200 mg (950 mg) tablet 600 mg PO DAILY tab 05/05/21 sitagliptin 50 mg tablet 50 mg PO DAILY #90 tab 05/05/21 folic acid 1 mg tablet 2 mg PO DAILY #180 tab 05/08/21 warfarin 1 mg tablet 1 mg PO MOTUWETHFRSA #90 tab 08/10/21 warfarin 2 mg tablet 2 mg PO LIAO #14 tab 08/10/21 Entresto 1 ea PO BID 08/26/21 fenofibrate micronized 200 mg PO DAILY 08/26/21
[2021-08-29 14:41] LABS: Bedside Glucose 191 mg/dL (70-110)
== END 2021-08-29 14:00 | disposition home or self-care (01) ==
LOC: ED 09:50 → PCU 10:06
PROVIDERS: Admitting Provider Internal Medicine; Emergency Provider Emergency Medicine; PCP Family Medicine; Visit Provider Student in an Organized Health Care Education/Training Program
DX: I13.0 Hypertensive heart and chronic kidney disease with heart failure and stage 1 through stage 4 chronic kidney disease, or unspecified chronic kidney disease (principal); I25.2 Old myocardial infarction; Z23 Encounter for immunization; E03.9 Hypothyroidism, unspecified; E66.9 Obesity, unspecified; I25.5 Ischemic cardiomyopathy; I48.0 Paroxysmal atrial fibrillation; G47.33 Obstructive sleep apnea (adult) (pediatric); E11.40 Type 2 diabetes mellitus with diabetic neuropathy, unspecified; E11.22 Type 2 diabetes mellitus with diabetic chronic kidney disease; I50.43 Acute on chronic combined systolic (congestive) and diastolic (congestive) heart failure; I25.10 Atherosclerotic heart disease of native coronary artery without angina pectoris; M10.9 Gout, unspecified; E78.5 Hyperlipidemia, unspecified; F32.A Depression, unspecified; K21.9 Gastro-esophageal reflux disease without esophagitis; I47.2 Ventricular tachycardia; N18.32 Chronic kidney disease, stage 3b; Z95.810 Presence of automatic (implantable) cardiac defibrillator; Z86.718 Personal history of other venous thrombosis and embolism; Z79.899 Other long term (current) drug therapy; Z79.02 Long term (current) use of antithrombotics/antiplatelets; Z79.4 Long term (current) use of insulin; Z79.890 Hormone replacement therapy; Z79.01 Long term (current) use of anticoagulants; Z95.1 Presence of aortocoronary bypass graft; Z86.74 Personal history of sudden cardiac arrest
CPT/HCPCS: 36415; 71045; 71250; 78452; 80048; 80053; 82962; 83735; 83880; 84100; 84443; 84484; 85025; 85610; 87449; 87633; 93005; 93017; 93306; 94667; 94668; 96374; 96376; 99218; 99251; 99284; A9500; G0008; Q9957; 90686; A4216; C8929; G0378; G0463; J1940; J2785; J3490

== ENCOUNTER 2021-09-14 17:50 | Emergency (ER) | payer MEDICARE, BC, SELFPAY ==
[2021-09-14 17:51] VITALS: BP 129/69; PULSE 99; RESP 16; TEMP 37.4; O2SAT 98; BMI 31.1
--- NOTE | 2021-09-14 18:26 | EKG12_ITS ---
Test Reason : WEAKNESS Blood Pressure : / mmHG Vent. Rate : 095 BPM Atrial Rate : 095 BPM P-R Int : 126 ms QRS Dur : 176 ms QT Int : 466 ms P-R-T Axes : 057 169 -15 degrees QTc Int : 585 ms Atrial-sensed ventricular-paced rhythm Biventricular pacemaker detected Abnormal ECG Confirmed by ARMANI DUNCAN, ADY ([id number]), assistant editor DEEDEE KRAMER ([id number]) on 09/19/2021 9:58:54 AM Referred By: SB Confirmed By:BESSIE LOMELI MD
--- NOTE | 2021-09-14 18:36 | EDS_ITS ---
HPI History of Present Illness Chief Complaint: Nausea/Vomiting Informant: patient and spouse/S.O. 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 fib, CHF, CAD, DVT, PA, diabetes on Coumadin and Plavix. With a recent hospital admission for CHF. He had nausea and vomiting since yesterday and today. No abdominal pain. No fever. He also had blood in his urine but no dysuria. Prior similar symptoms: Yes Recent Illness/Hospitalization: Yes [facility] Medical History Acute exacerbation of CHF (congestive heart failure) Atherosclerotic heart disease of [place] coronary artery without angina pectoris Atrial fibrillation Atrioventricular block 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 (~04/20/02) Chronic combined systolic and diastolic CHF (congestive heart failure) CKD (chronic kidney disease), stage III Coronary artery disease Gout Heart failure History of cardiac pacemaker (~07/14/01) History of DVT (deep vein thrombosis) History of myocardial infarction HLD (hyperlipidemia) Hypertension Hyponatremia Hypothyroidism Ischemic cardiomyopathy Lactic acidosis 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 Neuropathy Non-ST elevation (NSTEMI) myocardial infarction Obesity YUSUF (obstructive sleep apnea) Paroxysmal atrial fibrillation Paroxysmal ventricular tachycardia Premature ventricular contraction Presence of stent of bypass graft (~11/23/19) Supratherapeutic INR Type 2 diabetes mellitus Home Medications allopurinol 100 mg PO DAILY 11/27/19 [History Last Taken 04/14/20 09:00] clopidogrel 75 mg PO DAILY 11/27/19 [History Last Taken 04/14/20 09:00] pantoprazole 40 mg PO DAILY 11/27/19 [History Last Taken 04/14/20 09:00] levothyroxine 75 mcg tablet 75 mcg PO DAILY 04/25/20 [History Last Taken Unknown] spironolactone 25 mg tablet 25 mg PO DAILY #90 tab 12/05/20 [Rx Last Taken Unknown] omega-3 fatty acids-fish oil 2 each PO DAILY 01/07/21 [History Last Taken Unknown] sertraline 25 mg PO DAILY 01/07/21 [History Last Taken Unknown] torsemide 40 mg PO BID 01/07/21 [History Last Taken Unknown] pen needle, diabetic 32 gauge x #100 ea 03/10/21 [Rx Last Taken Unknown] rosuvastatin 40 mg tablet 40 mg PO DAILY tab 03/10/21 [History Last Taken Unknown] cholecalciferol (vitamin D3) 25 mcg (1,000 unit) tablet 25 mcg PO DAILY 04/13/21 [History Last Taken Unknown] gabapentin 100 mg capsule 200 mg PO BID cap 04/13/21 [History Last Taken Unknown] insulin glargine 100 unit/mL (3 mL) subcutaneous pen 42 unit SUBCUT QAM ml 04/13/21 [History Last Taken Unknown] nitroglycerin 0.4 mg sublingual tablet 0.4 mg SUBLINGUAL Q5M PRN MDD 3 04/13/21 [History Last Taken Unknown] calcium citrate 200 mg (950 mg) tablet 600 mg PO DAILY tab 05/05/21 [History Last Taken Unknown] sitagliptin 50 mg tablet 50 mg PO DAILY #90 tab 05/05/21 [Rx Last Taken Unknown] folic acid 1 mg tablet 2 mg PO DAILY #180 tab 05/08/21 [Rx Last Taken Unknown] warfarin 1 mg tablet 1 mg PO MOTUWETHFRSA #90 tab 08/10/21 [Rx Last Taken Unknown] warfarin 2 mg tablet 2 mg PO LIAO #14 tab 08/10/21 [Rx Last Taken Unknown] Entresto 1 ea PO BID 08/26/21 [History Last Taken Unknown] fenofibrate micronized 200 mg PO DAILY 08/26/21 [History Last Taken Unknown] amiodarone 200 mg tablet 200 mg PO DAILY #90 tab 08/31/21 [Rx Last Taken Unknown] ondansetron 4 mg PO Q8H PRN 4 Days tab 09/14/21 [Rx Last Taken Unknown] Allergy/AdvReac Type Severity Reaction Status Date / Time Iodine and Iodide Containing AdvReac Severe Diarrhea Verified 09/14/21 17:55 Produc metformin AdvReac Upset Verified 09/14/21 17:55 Stomach niacin AdvReac Other Verified 09/14/21 17:55 Family History Father Myocardial infarction Surgical History Aortocoronary bypass status (~06/18/96) History of cardiac radiofrequency ablation (~06/12/07) History of coronary artery stent placement History of implantable cardioverter-defibrillator (ICD) placement (~07/14/01) History of PTCA History of tonsillectomy Social History Smoking Status: Never smoker alcohol intake: never substance use type: does not use caffeine: Yes Type: coffee Number of servings: 2 ROS ROS ED ROS Narrative Nausea and vomiting. Review of Systems ROS Unobtainable: Denies due to encephalopathy Constitutional Constitutional ED: Denies fever(s) Eyes Eyes: Denies change in vision ENT ENT ED: Denies ear pain or sore throat Cardiovascular Cardiovascular: Denies chest pain or palpitations Respiratory/Chest Respiratory/Chest: Denies cough or dyspnea Gastrointestinal Gastrointestinal: Reports nausea and vomiting; Denies abdominal pain Genitourinary Genitourinary ED: Reports hematuria; Denies dysuria Musculoskeletal Musculoskeletal: Denies myalgias Integumentary Denies rash Neurologic Neurologic: Denies headache(s) Psychiatric Psychiatric: Denies depression Endocrine Endocrinology: Denies polyuria Allergic/Immunologic Allergic/Immunologic ED: Denies urticaria EXAM Physical Exam Narrative Exam Narrative: 1-year-old male no acute distress vital signs stable afebrile. Pulse ox 90% room air no signs hypoxia. HEENT exam unremarkable atraumatic. Nontender. Lungs clear to auscultation bilaterally. Heart regular rhythm rate in the 90s no murmur. Chest wall nontender. Abdomen soft nondistended normal bowel sounds no peritoneal signs. No hernia or mass. No distention. No obstruction. Moving all 4 extremities. Nontender no edema. Neurologically awake and alert with no focal motor deficits. Const Vital Signs: 09/14/21 17:51 09/14/21 20:08 Temperature 99.3 F H Temperature Source Temporal Pulse Rate 99 95 Respiratory Rate 16 17 Blood Pressure 129/69 H 102/69 Blood Pressure Mean 89 80 Pulse Ox 98 95 Oxygen Delivery Method Room Air Positive well nourished and well developed; Negative for obese, cachectic, contractures or unkempt General Appearance ED: well developed and NAD; Negative for unkempt, cachectic, contractures, cyanotic or diaphoretic Nutritional Appearance: Negative for cachectic or obese HEENT Reports moist mucous membranes Negative for trauma or tenderness Eyes PERRL and EOMs intact bilaterally Neck no lymphadenopathy, supple and no JVD General: Negative for tenderness Chest Wall inspection of chest normal and palpation of chest normal Resp normal respiratory effort and clear to auscultation bilaterally Effort and Inspection: Negative for pain with movement Auscultation: Negative for rales, rhonchi or wheezes Cardio regular rate, regular rhythm, S1 normal heart sound, S2 normal heart sound and no murmurs GI normal to inspection, nondistended, normoactive bowel sounds, non-tender, non-di stended and no masses Inspection: Negative for abdominal distention Auscultation: normoactive bowel sounds; Negative for hyperactive bowel sounds or hypoactive bowel sounds Palpation: soft; Negative for tender, guarding or rebound tenderness present Back/Spine no CVA tenderness General Back: Negative for CVA tenderness Extremity normal to inspection General Extremety ED: Negative for edema or tenderness General Extremity: Negative for edema Neuro oriented x3 and CN's II-XII intact bilaterally Sensorium / Orientation: alert; Negative for orientation impaired, lethargic or stuporous Motor Exam: strength 5/5 throughout Psych mental status grossly normal Appearance: Negative for unkempt Mood & Affect: Negative for depressed or tearful Skin no rashes or lesions noted and no wounds MDM MDM MDM Narrative Medical decision making narrative: 81-year-old male extensive past medical history with nausea vomiting last 2 days. Exam is benign. Screening labs are being obtained. To be treated with IV Zofran for his nausea. Repeat exam at 9:35 PM. Patient doing well. He has had no further vomiting while in the emergency department. His exam is unchanged. 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 Patient be discharged with Zofran for nausea. Follow-up with his primary care physician for the hematuria and return if feeling worse. Lab Data Attestation: I reviewed the patient's lab results. Lab results narrative: CBC shows a white count of 7.1. Hemoglobin 12.3. PT/INR of 15 and 1.3. Electrolytes gap of 8 BUN of 28 creatinine 1.64 glucose 110. These are his baseline labs compared to old studies. UA shows red cells but no other signs of infection. No white cells, no bacteria no nitrates. Labs: Laboratory Results - last 24 hr 09/14/21 09/14/21 09/14/21 18:25 18:25 18:25 WBC 7.1 RBC 4.33 L Hgb 12.3 L Hct 37.9 L MCV 87.5 MCH 28.4 MCHC 32.5 RDW Std Deviation 40.1 RDW Coeff of Gavino 12.5 Plt Count 294 MPV 10.5 Immature Gran % (Auto) 0.300 Neut % (Auto) 67.3 Lymph % (Auto) 25.4 [place] % (Auto) 5.0 Eos % (Auto) 1.6 Baso % (Auto) 0.4 Absolute Neuts (auto) 4.8 Absolute Lymphs (auto) 1.79 Nucleated RBC % 0 PT 15.9 H INR 1.3 Sodium 138 Potassium 4.2 Chloride 104 Carbon Dioxide 26.0 Anion Gap 8 BUN 28 H Creatinine 1.64 H Estim Creat Clear Calc 31.91 Est GFR (MDRD) Af Amer 52 L Est GFR (MDRD) Non-Af 43 L BUN/Creatinine Ratio 17.1 Glucose 110 H Calcium 9.4 Urine Color Urine Clarity Urine pH Ur Specific [address] Urine Protein Urine Glucose (UA) Urine Ketones Urine Occult Blood Urine Nitrite Urine Bilirubin Urine Urobilinogen Ur Leukocyte Esterase Urine RBC Urine WBC Ur Squamous Epith Cells Urine Bacteria Urine Mucus 09/14/21 19:43 WBC RBC Hgb Hct MCV MCH MCHC RDW Std Deviation RDW Coeff of Gavino Plt Count MPV Immature Gran % (Auto) Neut % (Auto) Lymph % (Auto) [place] % (Auto) Eos % (Auto) Baso % (Auto) Absolute Neuts (auto) Absolute Lymphs (auto) Nucleated RBC % PT INR Sodium Potassium Chloride Carbon Dioxide Anion Gap BUN Creatinine Estim Creat Clear Calc Est GFR (MDRD) Af Amer Est GFR (MDRD) Non-Af BUN/Creatinine Ratio Glucose Calcium Urine Color Yellow Urine Clarity Cloudy Urine pH 5.[address] 1.020 Urine Protein 30 H Urine Glucose (UA) Normal Urine Ketones 5 H Urine Occult Blood 250 H Urine Nitrite Negative Urine Bilirubin Negative Urine Urobilinogen 1 H Ur Leukocyte Esterase 25 H Urine RBC > 100 SEEN Urine WBC 0-5 SEEN Ur Squamous Epith Cells 0 SEEN Urine Bacteria 0 SEEN Urine Mucus 0 SEEN Rhythm Strip Rhythm Strip: Paced Rate: 95 Ectopy: None EKG Initial EKG: Attestation: I personally reviewed and interpreted this EKG as follows: Interpretation: No Acute Injury Pattern Comments: Paced rhythm rate of 95 no acute signs of PA or ischemia. Discharge Plan Triage Chief Complaint: Nausea/Vomiting ED Provider: Melchor Venegas Dx/Rx/DC Orders Clinical Impression: Hematuria, Diabetes, Coagulopathy, Vomiting Instructions: Nausea Vomit Control, ED Hematuria Prescriptions: New ondansetron 4 mg tablet,disintegrating 4 mg PO Q8H PRN (Reason: nausea and vomiting) 4 Days RF: 0 No Action rosuvastatin 40 mg tablet 40 mg PO DAILY RF: 0 (DME) pen needle, diabetic [BD Ultra-Fine Lauren Pen Needle] 32 gauge x 5/32 needle See Rx Instructions .ROUTE .MEDSUPPLY Qty: 100 RF: 6 gabapentin 100 mg capsule 200 mg PO BID RF: 0 Januvia 50 mg tablet 50 mg PO DAILY Qty: 90 RF: 3 cholecalciferol (vitamin D3) 25 mcg (1,000 unit) tablet 25 mcg PO DAILY RF: 0 Lantus Solostar U-100 Insulin 100 unit/mL (3 mL) insulin pen 42 unit subcut QAM RF: 0 clopidogrel 75 MG tablet 75 mg PO DAILY RF: 0 allopurinol 100 MG tablet 100 mg PO DAILY RF: 0 pantoprazole 40 MG tablet 40 mg PO DAILY RF: 0 levothyroxine 75 mcg tablet 75 mcg PO DAILY RF: 0 nitroglycerin 0.4 mg tablet, sublingual 0.4 mg sublingual Q5M MDD 3 PRN (Reason: angina) RF: 0 torsemide 20 MG tablet 40 mg PO BID RF: 0 sertraline 25 MG tablet 25 mg PO DAILY RF: 0 omega-3 fatty acids-fish oil 1 EACH capsule 2 each PO DAILY RF: 0 calcium citrate 200 mg (950 mg) tablet 600 mg PO DAILY RF: 0 fenofibrate micronized 200 mg capsule 200 mg PO DAILY RF: 0 Entresto 49-51 mg tablet 1 ea PO BID RF: 0 spironolactone 25 mg tablet 25 mg PO DAILY Qty: 90 RF: 3 folic acid 1 mg tablet 2 mg PO DAILY Qty: 180 RF: 3 warfarin 1 mg tablet 1 mg PO MOTUWETHFRSA Qty: 90 RF: 3 warfarin 2 mg tablet 2 mg PO LIAO Qty: 14 RF: 3 amiodarone 200 mg tablet 200 mg PO DAILY Qty: 90 RF: 3 Primary Care Provider: Angel Lang Referrals: Angel Lang MD [Primary Care Provider] - 3-5 Days if not improving Activity Restrictions/Additional Instructions: Follow-up with your primary care physician because the blood in your urine should get better if it is not it needs further evaluation and possibly a scope of your bladder to make sure there is nothing causing the bleeding. Continue your current medications. Zofran as needed for the nausea. You may swallowed or let it dissolve under your tongue. Disposition Disposition: Home, Self Care
[2021-09-14] MEDS: Ondansetron 4 MG/2 ML Vial IV (18:43)
[2021-09-14 18:47] LABS: Absolute Lymphocyte Count 1.79 X10^3/uL (0.83-4.51); Absolute Neutrophil Count 4.8 X10^3/uL (2.0-7.7); Basophil# 0.03 X10^3/uL; Basophil% 0.4 % (0-1); Eosinophil# 0.11 X10^3/uL; Eosinophils% 1.6 % (0-5); Hematocrit 37.9 % (40-54); Hemoglobin 12.3 g/dL (13.0-16.5); Lymphocyte # 1.79 X10^3/ul (0.83-4.51); Lymphocyte % 25.4 % (19-41); Mean Corp Hgb Conc 32.5 g/dL (32-36); Mean Corpuscular Hgb 28.4 pg (27.0-32.0); Mean Corpuscular Volume 87.5 fL (80-94); Mean Platelet Vol. 10.5 fl (6.2-12.0); Monocyte# 0.35 X10^3/uL; NRBC Flagged by Analyzer 0 % (0-5); Neutrophil # 4.75 X10^3/uL (2.7-7.7); Neutrophil % 67.3 % (47-70); Platelet Count 294 K/mm3 (150-450); RBC Distribution Width CV 12.5 % (11.6-14.6); RBC Distribution Width SD 40.1 fl (35.1-43.9); Red Blood Count 4.33 M/mm3 (4.6-6.2); White Blood Count 7.1 K/mm3 (4.4-11.0)
[2021-09-14 19:11] LABS: International Normalized Ratio 1.3; Prothrombin Time (Protime)PT. 15.9 SECONDS (11.7-14.9)
[2021-09-14 19:51] LABS: BUN 28 mg/dL (7-18); Glucose 110 mg/dL (74-106)
[2021-09-14 19:52] LABS: Bacteria 0 SEEN /hpf (None Seen); Mucous, Urine 0 SEEN /hpf (<or=2+); Squamous Epithelial Cells - UA 0 SEEN /hpf (0-5)
[2021-09-14 19:52] LABS: Anion Gap 8 (5-15); BUN/Creat Ratio 17.1 RATIO (10-20); Calcium,Total 9.4 mg/dL (8.5-10.1); Chloride 104 mmol/L (98-107); Creatinine, Serum 1.64 mg/dL (0.70-1.30); EST Glomerular Filtration Rate 43 mL/min (>60); Est Glom Filt Rate - Afr Amer 52 mL/min (>60); Estimated Creatinine Clearance 31.91 ml/min; Potassium 4.2 mmol/L (3.5-5.1); Sodium Level 138 mmol/L (136-145)
[2021-09-14 19:57] LABS: Color, Urine Yellow (Yellow); Glucose, Dipstick Normal (Normal); Ketone-Dipstick 5 mg/dl (Negative); Leukocyte Esterase-Dipstick 25 /ul (Negative); Nitrite-Dipstick Negative (Negative); Occult Blood-Urine 250 /ul (Negative); Protein-Dipstick 30 mg/dl (Negative); Urine Bilirubin Dipstick Negative (Negative); Urine Clarity Cloudy (Clear); Urine Urobilinogen 1 mg/dl (Normal)
[2021-09-14 20:03] LABS: Red Blood Cells-Urine > 100 SEEN /hpf (0-5)
[2021-09-14 20:04] LABS: White Blood Cells 0-5 SEEN /hpf (0-5)
[2021-09-14 20:08] VITALS: BP 102/69; PULSE 95; RESP 17; O2SAT 95
[2021-09-14 21:58] VITALS: BP 107/70; PULSE 98; RESP 16; O2SAT 95
== END 2021-09-14 21:59 | disposition home or self-care (01) ==
PROVIDERS: Emergency Provider Emergency Medicine; PCP Family Medicine
DX: R31.9 Hematuria, unspecified (principal); R11.2 Nausea with vomiting, unspecified; E11.22 Type 2 diabetes mellitus with diabetic chronic kidney disease; D68.9 Coagulation defect, unspecified; E03.9 Hypothyroidism, unspecified; E11.40 Type 2 diabetes mellitus with diabetic neuropathy, unspecified; E66.9 Obesity, unspecified; Z68.31 Body mass index [BMI] 31.0-31.9, adult; E78.5 Hyperlipidemia, unspecified; G47.33 Obstructive sleep apnea (adult) (pediatric); I13.0 Hypertensive heart and chronic kidney disease with heart failure and stage 1 through stage 4 chronic kidney disease, or unspecified chronic kidney disease; N18.30 Chronic kidney disease, stage 3 unspecified; I50.42 Chronic combined systolic (congestive) and diastolic (congestive) heart failure; I25.10 Atherosclerotic heart disease of native coronary artery without angina pectoris; I25.2 Old myocardial infarction; I25.5 Ischemic cardiomyopathy; I48.0 Paroxysmal atrial fibrillation; M10.9 Gout, unspecified; Z86.718 Personal history of other venous thrombosis and embolism; Z95.0 Presence of cardiac pacemaker; Z79.4 Long term (current) use of insulin; Z79.02 Long term (current) use of antithrombotics/antiplatelets; Z79.01 Long term (current) use of anticoagulants; Z79.899 Other long term (current) drug therapy
CPT/HCPCS: 80048; 81001; 85025; 85610; 93005; 96374; 99283; A4216; J2405

== ENCOUNTER 2021-09-19 10:16 | Inpatient (IN) | payer MEDICARE, BC, SELFPAY ==
[2021-09-19] VITALS (9 sets, daily range): BP systolic 91–123; BP diastolic 55–102; PULSE 70–93; RESP 18–28; TEMP 36–37.3; O2SAT 88–94; BMI 31.3; BMI 30.2
--- NOTE | 2021-09-19 11:03 | RAD_ITS ---
STUDY: X-RAY CHEST REASON FOR EXAM: Male, 81 years old. Cough TECHNIQUE: Single AP portable view of the chest. COMPARISON: Comparison is made with prior study 08/26/2021. FINDINGS: EKG electrodes are seen. There is elevation of the right hemidiaphragm. Increased markings at the right lung base with areas of confluence suggestive of a right basilar atelectasis and/or scarring. There is blunting of the right cause rc angle. Stable pleural parenchymal changes at the left lung base. Sternal cerclage wires and vascular clips are present from a prior sternotomy and coronary artery bypass graft procedure (CABG). A left-sided dual-chamber pacemaker is seen. Cardiomegaly. Normal mediastinum and dorene. Normal visualized pulmonary arteries. Normal visualized aortic arch and descending thoracic aorta. There are diffuse degenerative changes of the visualized thoracic spine. Normal visualized ribs, clavicles, and shoulders. There is no demonstrated abnormality of the visualized soft tissue structures of the upper abdomen. RAD/Chest 1 View (Portable) IMPRESSION: Right basilar atelectasis/infiltrate with blunting of the left costophrenic angle. Stable pleural parenchymal changes at the left lung base. Electronically Signed: Vinnie Chen MD at 12:20 EST , Service support ,
--- NOTE | 2021-09-19 11:04 | CT_ITS ---
STUDY: CT ABDOMEN AND PELVIS WITHOUT CONTRAST REASON FOR EXAM: Male, 81 years old. 5 day history of abdominal pain with nausea. Cough. Stage III chronic renal disease. RADIATION DOSAGE (If Supplied By Facility): CTDIvol = ( 12.81 ) mGy, DLP = ( 749.20 ) mGycm TECHNIQUE: Transaxial images were obtained from the dome of the diaphragm to the symphysis pubis without oral contrast, and without intravenous contrast. Sagittal and coronal images were reconstructed. Individualized dose optimization techniques were used for this CT. COMPARISON: Comparison is made with prior study dated 01/07/2021. FINDINGS: New right basilar pulmonary infiltrate. Progressive left lower lobe pulmonary infiltrate with small left pleural effusion. Dual-chamber pacemaker is seen. Normal liver. Stable tiny gallstones in the neck of the gallbladder. There are multiple benign calcified granulomata of the spleen. There is diffuse atrophy of the pancreas. Normal bilateral adrenal glands. There is a 4.1 cm x 3.2 cm cyst in the lower pole of the left kidney. Normal left kidney. Normal visualized stomach. Normal small intestine. There are scattered colonic diverticula consistent with diverticulosis. The appendix is visualized and appears normal. There is diffuse atherosclerotic calcification of the abdominal aorta and its major visceral branches, without a demonstrated aneurysm. Normal inferior vena cava. Normal retroperitoneum. Normal urinary bladder. Distended urinary bladder. Prostatic calcification. Normal abdominal wall. There are diffuse degenerative changes of the visualized lumbar spine. CT/Abdomen/Pelvis without Cont IMPRESSION: New right lower lobe infiltrate. Stable pleural parenchymal changes at the left lung base. Distended urinary bladder. Electronically Signed: Vinnie Chen MD at 12:24 EST , Service support ,
--- NOTE | 2021-09-19 11:04 | EKG12_ITS ---
Test Reason : SOB Blood Pressure : / mmHG Vent. Rate : 091 BPM Atrial Rate : 091 BPM P-R Int : 126 ms QRS Dur : 158 ms QT Int : 472 ms P-R-T Axes : 000 154 -27 degrees QTc Int : 580 ms Atrial-sensed ventricular-paced rhythm Biventricular pacemaker detected Abnormal ECG Confirmed by BLANCA DUNCAN, DELMA ([id number]), website/blog editor DEEDEE KRAMER ([id number]) on 09/21/2021 11:38:25 AM Referred By: FREDDIE Confirmed By:DELMA RIOS MD
--- NOTE | 2021-09-19 11:21 | EX.ED.DYSGE1 ---
HPI History of Present Illness Chief Complaint: Cough Narrative Narrative: Patient presenting for evaluation secondary to generalized illness. Patient has a complicated medical history including heart disease with congestive heart failure ejection fraction of around 25 to 35%, chronic kidney disease, chronic lung disease. Patient apparently has been dealing with generalized illness over the course of about the last week. He was in the emergency department was worked up with lab work and was discharged as initially it was mainly just nausea and vomiting. Since then the patient has had increasing shortness of breath with a nonproductive cough. He has had fevers at home as high as 102. Is also been having some dry heaves. Patient apparently was weak enough today to the point where he was unable to get out of bed, this prompted his to bring him into the emergency department. No exacerbating relieving factors. Review of systems otherwise negative. [facility] Medical History Acute exacerbation of CHF (congestive heart failure) Atherosclerotic heart disease of [place] coronary artery without angina pectoris Atrial fibrillation Atrioventricular block 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 (~04/20/02) Chronic combined systolic and diastolic CHF (congestive heart failure) CKD (chronic kidney disease), stage III Coronary artery disease Gout Heart failure History of cardiac pacemaker (~07/14/01) History of DVT (deep vein thrombosis) History of myocardial infarction HLD (hyperlipidemia) Hypertension Hyponatremia Hypothyroidism Ischemic cardiomyopathy Lactic acidosis 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 Neuropathy Non-ST elevation (NSTEMI) myocardial infarction Obesity YUSUF (obstructive sleep apnea) Paroxysmal atrial fibrillation Paroxysmal ventricular tachycardia Premature ventricular contraction Presence of stent of bypass graft (~11/23/19) Supratherapeutic INR Type 2 diabetes mellitus Home Medications allopurinol 100 mg PO DAILY 11/27/19 [History Last Taken 04/14/20 09:00] clopidogrel 75 mg PO DAILY 11/27/19 [History Last Taken 04/14/20 09:00] pantoprazole 40 mg PO DAILY 11/27/19 [History Last Taken 04/14/20 09:00] levothyroxine 75 mcg tablet 75 mcg PO DAILY 04/25/20 [History Last Taken Unknown] spironolactone 25 mg tablet 25 mg PO DAILY #90 tab 12/05/20 [Rx Last Taken Unknown] omega-3 fatty acids-fish oil 2 each PO DAILY 01/07/21 [History Last Taken Unknown] sertraline 25 mg PO DAILY 01/07/21 [History Last Taken Unknown] torsemide 40 mg PO BID 01/07/21 [History Last Taken Unknown] pen needle, diabetic 32 gauge x #100 ea 03/10/21 [Rx Last Taken Unknown] rosuvastatin 40 mg tablet 40 mg PO DAILY tab 03/10/21 [History Last Taken Unknown] cholecalciferol (vitamin D3) 25 mcg (1,000 unit) tablet 25 mcg PO DAILY 04/13/21 [History Last Taken Unknown] gabapentin 100 mg capsule 200 mg PO BID cap 04/13/21 [History Last Taken Unknown] insulin glargine 100 unit/mL (3 mL) subcutaneous pen 42 unit SUBCUT QAM ml 04/13/21 [History Last Taken Unknown] nitroglycerin 0.4 mg sublingual tablet 0.4 mg SUBLINGUAL Q5M PRN MDD 3 04/13/21 [History Last Taken Unknown] calcium citrate 200 mg (950 mg) tablet 600 mg PO DAILY tab 05/05/21 [History Last Taken Unknown] sitagliptin 50 mg tablet 50 mg PO DAILY #90 tab 05/05/21 [Rx Last Taken Unknown] folic acid 1 mg tablet 2 mg PO DAILY #180 tab 05/08/21 [Rx Last Taken Unknown] warfarin 1 mg tablet 1 mg PO MOTUWETHFRSA #90 tab 08/10/21 [Rx Last Taken Unknown] warfarin 2 mg tablet 2 mg PO LIAO #14 tab 08/10/21 [Rx Last Taken Unknown] Entresto 1 ea PO BID 08/26/21 [History Last Taken Unknown] fenofibrate micronized 200 mg PO DAILY 08/26/21 [History Last Taken Unknown] amiodarone 200 mg tablet 200 mg PO DAILY #90 tab 08/31/21 [Rx Last Taken Unknown] ondansetron 4 mg PO Q8H PRN 4 Days tab 09/14/21 [Rx Last Taken Unknown] ondansetron 4 mg PO QHS PRN 4 Days #10 tab 09/14/21 [Rx Last Taken Unknown] Allergy/AdvReac Type Severity Reaction Status Date / Time Iodine and Iodide Containing AdvReac Severe Diarrhea Verified 09/19/21 10:19 Produc metformin AdvReac Upset Verified 09/19/21 10:19 Stomach niacin AdvReac Other Verified 09/19/21 10:19 Family History Father Myocardial infarction Surgical History Aortocoronary bypass status (~06/18/96) History of cardiac radiofrequency ablation (~06/12/07) History of coronary artery stent placement History of implantable cardioverter-defibrillator (ICD) placement (~07/14/01) History of PTCA History of tonsillectomy Social History Smoking Status: Never smoker alcohol intake: never substance use type: does not use caffeine: Yes Type: coffee Number of servings: 2 ROS ROS ED Constitutional Constitutional ED: Reports chills and fever(s) ENT ENT ED: Denies rhinorrhea Cardiovascular Cardiovascular: Denies chest pain Respiratory/Chest Respiratory/Chest: Reports cough, dyspnea, dyspnea on exertion and sputum Gastrointestinal Gastrointestinal: Reports nausea and vomiting Genitourinary Genitourinary ED: Denies dysuria or hematuria Musculoskeletal Musculoskeletal: Denies back pain Integumentary Denies abscess or rash Neurologic Neurologic: Reports weakness Psychiatric Psychiatric: Denies depression Endocrine Endocrinology: Denies polydipsia or polyuria Allergic/Immunologic Allergic/Immunologic ED: Denies urticaria EXAM Physical Exam Const Vital Signs: 09/19/21 10:17 09/19/21 10:19 09/19/21 11:19 Temperature 96.8 F L 96.8 F L 96.8 F L Temperature Source Temporal Temporal Temporal Pulse Rate 93 93 93 Respiratory Rate 18 18 18 Respiratory Effort Short of Breath Respiratory Pattern Normal Blood Pressure 123/102 H 123/102 H 123/102 H Blood Pressure Mean 109 109 109 Pulse Ox 94 94 94 Oxygen Delivery Method Room Air Room Air Room Air Oxygen Flow Rate (L/min) 09/19/21 12:16 09/19/21 12:52 Temperature Temperature Source Pulse Rate 70 Respiratory Rate 20 H Respiratory Effort Respiratory Pattern Blood Pressure 93/58 L Blood Pressure Mean 69 Pulse Ox 88 91 Oxygen Delivery Method Room Air Nasal Cannula Oxygen Flow Rate (L/min) 3 Positive well nourished and well developed Constitutional Narrative: Chronically ill-appearing elderly male General Appearance ED: well developed and NAD HEENT Reports dry mucous membranes Negative for trauma or tenderness Mouth ED: Yes dry mucous membranes Mouth: dry mucous membranes Eyes EOMs intact bilaterally Neck no lymphadenopathy, supple and no JVD Chest Wall inspection of chest normal Resp Resp Narrative: Patient is somewhat tachypneic. Decreased breath sounds are noted on the right, rales and wheezes are noted on the left with decreased breath sounds at the left base Cardio regular rate, regular rhythm, no murmurs and peripheral pulses 2+ throughout GI normal to inspection, nondistended, normoactive bowel sounds, non-tender and no masses Palpation: soft Back/Spine normal to inspection Extremity normal to inspection General Extremety ED: Negative for tenderness Neuro oriented x3 and no sensory deficits noted Sensorium / Orientation: alert Motor Exam: strength 5/5 throughout Psych mental status grossly normal Skin no rashes or lesions noted MDM MDM MDM Narrative Medical decision making narrative: Patient presented secondary to generally worsening generalized illness. Covid test was obtained was noted to be positive. Patient did complain of some abdominal pain CT abdomen and pelvis was noted to be negative. Chest x-ray per radiology shows right-sided infiltrates and chronic changes on the left, I reviewed this and agree with the radiologist. CBC was unremarkable, chemistry shows some elevation of the patient's creatinine up to 1.8 which is elevated from baseline no severe electrolyte abnormalities although potassium and chloride are very mildly low. BNP was elevated one hundred sixty-seven. Patient is hypoxic on room air which is not his baseline he was given Decadron I believe he requires admission for further treatment. Patient was discussed with the hospitalist. Lab Data Labs: Laboratory Results - last 24 hr 09/19/21 09/19/21 09/19/21 11:25 11:25 11:25 WBC 4.7 RBC 5.06 Hgb 15.5 Hct 47.3 MCV 93.5 D MCH 30.6 MCHC 32.8 RDW Std Deviation 50.5 H RDW Coeff of Gavino 14.7 H Plt Count 125 L MPV 13.0 H Immature Gran % (Auto) 0.400 Neut % (Auto) 85.9 H Lymph % (Auto) 4.7 L [place] % (Auto) 8.6 Eos % (Auto) 0.0 Baso % (Auto) 0.4 Absolute Neuts (auto) 4.0 Absolute Lymphs (auto) 0.22 L Nucleated RBC % 0 Differential Comment COMMENT Sodium 134 L Potassium 3.4 L Chloride 94 L Carbon Dioxide 28.0 Anion Gap 12 BUN 31 H Creatinine 1.81 H Estim Creat Clear Calc 28.91 Est GFR (MDRD) Af Amer 46 L Est GFR (MDRD) Non-Af 38 L BUN/Creatinine Ratio 17.1 Glucose 194 H Calcium 9.1 Troponin I High Sens 35 B-Natriuretic Peptide 167.9 H Radiography Diagnostic Testing: Clinical Impression(s) from Imaging Studies Chest X-Ray 09/19/21 11:03 IMPRESSION: Right basilar atelectasis/infiltrate with blunting of the left costophrenic angle. Stable pleural parenchymal changes at the left lung base. Electronically Signed: Vinnie Chen MD at 12:20 EST , Service support , Abdomen/Pelvis CT 09/19/21 11:04 IMPRESSION: New right lower lobe infiltrate. Stable pleural parenchymal changes at the left lung base. Distended urinary bladder. Electronically Signed: Vinnie Chen MD at 12:24 EST , Service support , Discharge Plan Triage Chief Complaint: Cough ED Provider: Gurpreet Tinsley Dx/Rx/DC Orders Clinical Impression: COVID-19, Hypoxia, FILIPE (acute kidney injury) Prescriptions: No Action rosuvastatin 40 mg tablet 40 mg PO DAILY RF: 0 (DME) pen needle, diabetic [BD Ultra-Fine Lauren Pen Needle] 32 gauge x 5/32 needle See Rx Instructions .ROUTE .MEDSUPPLY Qty: 100 RF: 6 gabapentin 100 mg capsule 200 mg PO BID RF: 0 Januvia 50 mg tablet 50 mg PO DAILY Qty: 90 RF: 3 cholecalciferol (vitamin D3) 25 mcg (1,000 unit) tablet 25 mcg PO DAILY RF: 0 Lantus Solostar U-100 Insulin 100 unit/mL (3 mL) insulin pen 42 unit subcut QAM RF: 0 clopidogrel 75 MG tablet 75 mg PO DAILY RF: 0 allopurinol 100 MG tablet 100 mg PO DAILY RF: 0 pantoprazole 40 MG tablet 40 mg PO DAILY RF: 0 levothyroxine 75 mcg tablet 75 mcg PO DAILY RF: 0 nitroglycerin 0.4 mg tablet, sublingual 0.4 mg sublingual Q5M MDD 3 PRN (Reason: angina) RF: 0 torsemide 20 MG tablet 40 mg PO BID RF: 0 sertraline 25 MG tablet 25 mg PO DAILY RF: 0 omega-3 fatty acids-fish oil 1 EACH capsule 2 each PO DAILY RF: 0 calcium citrate 200 mg (950 mg) tablet 600 mg PO DAILY RF: 0 fenofibrate micronized 200 mg capsule 200 mg PO DAILY RF: 0 Entresto 49-51 mg tablet 1 ea PO BID RF: 0 ondansetron 4 mg tablet,disintegrating 4 mg PO Q8H PRN (Reason: nausea and vomiting) 4 Days RF: 0 ondansetron 4 mg tablet,disintegrating 4 mg PO QHS PRN (Reason: nausea and vomiting) 4 Days Qty: 10 RF: 0 spironolactone 25 mg tablet 25 mg PO DAILY Qty: 90 RF: 3 folic acid 1 mg tablet 2 mg PO DAILY Qty: 180 RF: 3 warfarin 1 mg tablet 1 mg PO MOTUWETHFRSA Qty: 90 RF: 3 warfarin 2 mg tablet 2 mg PO LIAO Qty: 14 RF: 3 amiodarone 200 mg tablet 200 mg PO DAILY Qty: 90 RF: 3 Primary Care Provider: Angel Lang Referrals: Angel Lang MD [Primary Care Provider] - Disposition Disposition: Acute Care [facility]
[2021-09-19 11:43] LABS: Absolute Lymphocyte Count 0.22 X10^3/uL (0.83-4.51); Basophil# 0.02 X10^3/uL; Basophil% 0.4 % (0-1); Hematocrit 47.3 % (40-54); Hemoglobin 15.5 g/dL (13.0-16.5); Lymphocyte # 0.22 X10^3/ul (0.83-4.51); Lymphocyte % 4.7 % (19-41); Mean Corp Hgb Conc 32.8 g/dL (32-36); Mean Corpuscular Hgb 30.6 pg (27.0-32.0); Mean Corpuscular Volume 93.5 fL (80-94); Monocyte% 8.6 % (0-10); NRBC Flagged by Analyzer 0 % (0-5); Neutrophil # 4.01 X10^3/uL (2.7-7.7); Neutrophil % 85.9 % (47-70); POSITIVE DIFFERENTIAL YES; Platelet Count 125 K/mm3 (150-450); RBC Distribution Width CV 14.7 % (11.6-14.6); RBC Distribution Width SD 50.5 fl (35.1-43.9); Red Blood Count 5.06 M/mm3 (4.6-6.2); White Blood Count 4.7 K/mm3 (4.4-11.0)
[2021-09-19 11:44] LABS: Differential Indicated SCAN CRITERIA MET
[2021-09-19 12:03] LABS: Anion Gap 12 (5-15); BUN 31 mg/dL (7-18); BUN/Creat Ratio 17.1 RATIO (10-20); Calcium,Total 9.1 mg/dL (8.5-10.1); Chloride 94 mmol/L (98-107); Creatinine, Serum 1.81 mg/dL (0.70-1.30); EST Glomerular Filtration Rate 38 mL/min (>60); Est Glom Filt Rate - Afr Amer 46 mL/min (>60); Estimated Creatinine Clearance 28.91 ml/min; Glucose 194 mg/dL (74-106); Potassium 3.4 mmol/L (3.5-5.1); Sodium Level 134 mmol/L (136-145); Troponin-I HS 35 pg/mL (3.0-78.0)
[2021-09-19 12:16] LABS: BNP,B-Type NATRIURETIC PEPTIDE 167.9 pg/mL (0-100)
--- NOTE | 2021-09-19 13:09 | NURSING ---
DR DENITA FRAZIER
--- NOTE | 2021-09-19 13:14 | HP.PCM.HOS_ITS ---
HPI - General General Date of Admission: 09/19/21 Date of Service: 09/19/21 Chief Complaint: Progressive SOB HPI Narrative SATISH MCLAUGHLIN, is a 81 M who presents with the above. He was in the ED on 09/14/21. Patient complains of feeling unwell for the past 1 week. He has been having progressive shortness of breath with nonproductive cough. He is also has some fevers at home as high as 102. He came to the ED today because he was pro gressively weak that her could not take care of him. In the ED, his oxygen saturations 88% on room air increased to 94% on 3 L of oxygen. His admitting blood work showed hypokalemia and hypokalemia. Chest x-ray shows right basilar atelectasis/infiltrate and blunting the left costophrenic angle. CT of his abd/pelvis showed distended urinary bladder, new right lower lobe infiltrate. His rapid Covid antigen test was positive [facility] Medical History Acute exacerbation of CHF (congestive heart failure) Atherosclerotic heart disease of [place] coronary artery without angina pectoris Atrial fibrillation Atrioventricular block 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 (~04/20/02) Chronic combined systolic and diastolic CHF (congestive heart failure) CKD (chronic kidney disease), stage III Coronary artery disease Gout Heart failure History of cardiac pacemaker (~07/14/01) History of DVT (deep vein thrombosis) History of myocardial infarction HLD (hyperlipidemia) Hypertension Hyponatremia Hypothyroidism Ischemic cardiomyopathy Lactic acidosis 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 Neuropathy Non-ST elevation (NSTEMI) myocardial infarction Obesity YUSUF (obstructive sleep apnea) Paroxysmal atrial fibrillation Paroxysmal ventricular tachycardia Premature ventricular contraction Presence of stent of bypass graft (~11/23/19) Supratherapeutic INR Type 2 diabetes mellitus Home Medications allopurinol 100 mg PO DAILY 11/27/19 [History Last Taken 09/19/21] clopidogrel 75 mg PO DAILY 11/27/19 [History Last Taken 09/19/21] pantoprazole 40 mg PO DAILY 11/27/19 [History Last Taken 09/19/21] omega-3 fatty acids-fish oil 2 each PO DAILY 01/07/21 [History Last Taken 09/18/21] sertraline 25 mg PO DAILY 01/07/21 [History Last Taken 09/18/21] torsemide 40 mg PO BID 01/07/21 [History Last Taken 09/19/21] pen needle, diabetic 32 gauge x #100 ea 03/10/21 [Rx Last Taken Unknown] rosuvastatin 40 mg tablet 40 mg PO DAILY tab 03/10/21 [History Last Taken 09/19/21] cholecalciferol (vitamin D3) 25 mcg (1,000 unit) tablet 25 mcg PO DAILY 04/13/21 [History Last Taken 09/19/21] gabapentin 100 mg capsule 200 mg PO BID cap 04/13/21 [History Last Taken 09/19/21] insulin glargine 100 unit/mL (3 mL) subcutaneous pen 40 unit SUBCUT QAM ml 04/13/21 [History Last Taken 09/19/21] nitroglycerin 0.4 mg sublingual tablet 0.4 mg SUBLINGUAL Q5M PRN MDD 3 04/13/21 [History Last Taken Unknown] calcium citrate 200 mg (950 mg) tablet 600 mg PO DAILY tab 05/05/21 [History Last Taken 09/19/21] folic acid 1 mg tablet 2 mg PO DAILY #180 tab 05/08/21 [Rx Last Taken 09/18/21] warfarin 1 mg tablet 1 mg PO MOTUWETHFRSA #90 tab 08/10/21 [Rx Last Taken 09/18/21] Entresto 1 ea PO BID 08/26/21 [History Last Taken 09/19/21] fenofibrate micronized 200 mg PO DAILY 08/26/21 [History Last Taken 09/19/21] amiodarone 200 mg tablet 200 mg PO DAILY #90 tab 08/31/21 [Rx Last Taken 09/19/21] Januvia 50 mg PO DAILY 09/19/21 [History Last Taken 09/18/21] levothyroxine 137 mcg PO DAILY 09/19/21 [History Last Taken 09/19/21] spironolactone 25 mg PO DAILY 09/19/21 [History Last Taken 09/19/21] warfarin 2 mg PO LIAO 09/19/21 [History Last Taken 09/17/21] Allergy/AdvReac Type Severity Reaction Status Date / Time Iodine and Iodide Containing AdvReac Severe Diarrhea Verified 09/19/21 10:19 Produc metformin AdvReac Upset Verified 09/19/21 10:19 Stomach niacin AdvReac Other Verified 09/19/21 10:19 Family History Father Myocardial infarction Surgical History Aortocoronary bypass status (~06/18/96) History of cardiac radiofrequency ablation (~06/12/07) History of coronary artery stent placement History of implantable cardioverter-defibrillator (ICD) placement (~07/14/01) History of PTCA History of tonsillectomy Social History Smoking Status: Never smoker alcohol intake: never substance use type: does not use caffeine: Yes Type: coffee Number of servings: 2 ROS ROS Narrative Constitutional: Reports: Malaise, Weakness, Fatigue, fever or chills. Denies: Anorexia, Night Sweats, Weight Change Eyes: Denies: Blurred vision, Cataracts, Conjunctivae Inflammation, Pain, Redness, Vision Change HEENT: Denies: Difficulty Hearing, Difficulty Swallowing, Head Aches, Hearing Changes, Sinus Congestion, Sinus Drainage Cardiovascular: Denies: Chest Pain, Orthopnea, Palpitations Respiratory: Admits to cough, Shortness of breath at rest, Sputum production Gastrointestinal: Denies: Abdominal Pain, Nausea, Vomiting Genitourinary: Denies: Dysuria Musculoskeletal: Denies: Joint Pain, Joint stiffness, Joint swelling, Joint Tenderness Skin: Denies: Rash, Wounds Neurological: Denies: Numbness, Tingling, Focal weakness Vital Signs Vital Signs Vital Signs: 09/19/21 10:17 09/19/21 10:19 09/19/21 11:19 Temperature 96.8 F L 96.8 F L 96.8 F L Temperature Source Temporal Temporal Temporal Pulse Rate 93 93 93 Respiratory Rate 18 18 18 Respiratory Effort Short of Breath Respiratory Pattern Normal Blood Pressure 123/102 H 123/102 H 123/102 H Blood Pressure Mean 109 109 109 Pulse Ox 94 94 94 Oxygen Delivery Method Room Air Room Air Room Air Oxygen Flow Rate (L/min) 09/19/21 12:16 09/19/21 12:52 Temperature Temperature Source Pulse Rate 70 Respiratory Rate 20 H Respiratory Effort Respiratory Pattern Blood Pressure 93/58 L Blood Pressure Mean 69 Pulse Ox 88 91 Oxygen Delivery Method Room Air Nasal Cannula Oxygen Flow Rate (L/min) 3 Weight Weight: 90.673 kg Body Mass Index (BMI) 31.3 Physical Exam Narrative Physical exam: General: Alert, Oriented x3, appeared frail, cooperative, on 3 L of oxygen HEENT: Atraumatic Oral: Moist Mucosa Neck: Supple Lungs: Diminished to auscultation Cardiovascular: HS I+II, regular, no murmurs Abdomen: Bowel Sounds Present, Soft, Non Tender Extremities: No edema Results Lab / Micro Data Result Diagrams: 09/19/21 11:25 09/19/21 11:25 Labs: Laboratory Results - last 24 hr 09/19/21 11:25: WBC 4.7, RBC 5.06, Hgb 15.5, Hct 47.3, MCV 93.5 D, MCH 30.6, MCHC 32.8, RDW Std Deviation 50.5 H, RDW Coeff of Gavino 14.7 H, Plt Count 125 L, MPV 13.0 H, Immature Gran % (Auto) 0.400, Neut % (Auto) 85.9 H, Lymph % (Auto) 4.7 L, [place] % (Auto) 8.6, Eos % (Auto) 0.0, Baso % (Auto) 0.4, Absolute Neuts (auto) 4.0, Absolute Lymphs (auto) 0.22 L, Nucleated RBC % 0, Differential Comment COMMENT 09/19/21 11:25: Sodium 134 L, Potassium 3.4 L, Chloride 94 L, Carbon Dioxide 28.0, Anion Gap 12, BUN 31 H, Creatinine 1.81 H, Estim Creat Clear Calc 28.91, Est GFR (MDRD) Af Amer 46 L, Est GFR (MDRD) Non-Af 38 L, BUN/Creatinine Ratio 17.1, Glucose 194 H, Calcium 9.1, Troponin I High Sens 35 09/19/21 11:25: B-Natriuretic Peptide 167.9 H Micro: Microbiology 09/19/21 11:15 Mucosa - Nose Influenza Types A,B Direct FA (AMELIE) - Final 09/19/21 11:15 Nasal Secretion SARS-CoV-2 Antigen (Rapid) - Final SARS-CoV-2 (COVID 19) Radiology Impression Chest X-Ray 09/19/21 11:03 IMPRESSION: Right basilar atelectasis/infiltrate with blunting of the left costophrenic angle. Stable pleural parenchymal changes at the left lung base. Electronically Signed: Vinnie Chen MD at 12:20 EST , Service support , Abdomen/Pelvis CT 09/19/21 11:04 IMPRESSION: New right lower lobe infiltrate. Stable pleural parenchymal changes at the left lung base. Distended urinary bladder. 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 Acute hypoxic respiratory failure secondary to acute COVID-19 pneumonia Patient stated that he is vaccinated; currently on 3 L of oxygen Started on dexamethasone; will continue same Continue on Remdesivir. 2. Hypokalemia, replaced, recheck kidney 3. CKD stage IIIb, Cr about her baseline Repeat blood work in a.m. 4. Type II DM, on continue home medication, continue on insulin sliding scale 5. Rest of chronic medical conditions including CAD status post stents, paroxysmal atrial fibrillation, hyperlipidemia -remained stable I discussed and explained in details the various types of CODE STATUS-full code, DNR CCA, DNR CC. Patient chose to be DNR-CCA, no intubation Time spent discussing CODE STATUS 16 minutes Charges/Coding Visit Charges Inpatient E&M: 69607 Init Hosp L3 Procedures Hospitalists Procedures: [id number] Advncd Care Plan 30 Min
--- NOTE | 2021-09-19 13:19 | NURSING ---
MED SURG DENITA ALTAMIRANO, HYPOXIA
--- NOTE | 2021-09-19 13:41 | NURSING ---
MS ED 1
[2021-09-19] MEDS: dexAMETHasone 4 MG/ML Vial 6 MG IV (13:54)
[2021-09-19 14:46] LABS: International Normalized Ratio 1.4; Prothrombin Time (Protime)PT. 16.7 SECONDS (11.7-14.9)
[2021-09-19] MEDS: Potassium Chloride Oral Tablet 20 MEQ 40 MEQ PO (19:10)
[2021-09-19 19:58] LABS: Mucous, Urine 0 SEEN /hpf (<or=2+); Red Blood Cells-Urine 0 SEEN /hpf (0-5); Squamous Epithelial Cells - UA 0 SEEN /hpf (0-5)
[2021-09-19 20:03] LABS: Color, Urine Yellow (Yellow); Glucose, Dipstick Normal (Normal); Ketone-Dipstick 5 mg/dl (Negative); Leukocyte Esterase-Dipstick Negative /ul (Negative); Nitrite-Dipstick Negative (Negative); Occult Blood-Urine 10 /ul (Negative); Protein-Dipstick 30 mg/dl (Negative); Urine Bilirubin Dipstick Negative (Negative); Urine Clarity Clear (Clear); Urine Urobilinogen 1 mg/dl (Normal)
[2021-09-19 20:09] LABS: Hyaline Cast 10-25 SEEN /lpf (0-5)
[2021-09-19 20:10] LABS: Bacteria 1+ /hpf (None Seen); White Blood Cells 0-5 SEEN /hpf (0-5)
[2021-09-19] MEDS: 0.9% Saline Lock 10 ML Syringe IV (21:08)
[2021-09-19] MEDS: Gabapentin 100 MG Capsule 200 MG PO (21:09)
[2021-09-19] MEDS: SACUBITRIL/VALSARTAN 49-51 MG TABLET 1 EACH PO (21:09)
[2021-09-19] MEDS: Insulin Lispro 100 UNIT/ML INSULN.PEN SC (21:11)
[2021-09-19 21:50] LABS: Bedside Glucose 197 mg/dL (70-110)
[2021-09-20] VITALS (20 sets, daily range): BP systolic 86–103; BP diastolic 48–71; PULSE 69–72; RESP 16–22; TEMP 36.3–36.9; O2SAT 85–97
[2021-09-20] MEDS: Insulin Lispro 100 UNIT/ML INSULN.PEN SC ×3 (06:09→22:51)
[2021-09-20 06:20] LABS: Bedside Glucose 169 mg/dL (70-110)
[2021-09-20 07:25] LABS: Absolute Lymphocyte Count 0.32 X10^3/uL (0.83-4.51); Absolute Neutrophil Count 3.2 X10^3/uL (2.0-7.7); Hematocrit 42.5 % (40-54); Hemoglobin 14.4 g/dL (13.0-16.5); Lymphocyte # 0.32 X10^3/ul (0.83-4.51); Lymphocyte % 8.4 % (19-41); Mean Corp Hgb Conc 33.9 g/dL (32-36); Mean Corpuscular Hgb 31.3 pg (27.0-32.0); Mean Corpuscular Volume 92.4 fL (80-94); Monocyte# 0.29 X10^3/uL; Monocyte% 7.6 % (0-10); NRBC Flagged by Analyzer 0 % (0-5); Neutrophil % 83.5 % (47-70); POSITIVE DIFFERENTIAL YES; Platelet Count 133 K/mm3 (150-450); RBC Distribution Width CV 14.6 % (11.6-14.6); RBC Distribution Width SD 50.5 fl (35.1-43.9); White Blood Count 3.8 K/mm3 (4.4-11.0)
[2021-09-20 07:27] LABS: Differential Indicated SCAN CRITERIA MET
[2021-09-20 08:03] LABS: ALB/GLOB Ratio 0.6 RATIO (0.9-2.4); AST(SGOT) 90 U/L (15-37); Alanine Aminotransfer ALT/SGPT 54 U/L (16-61); Albumin, Serum 2.4 g/dL (3.2-5.0); Alkaline Phosphatase 45 U/L (45-117); Anion Gap 13 (5-15); BUN 43 mg/dL (7-18); BUN/Creat Ratio 24.6 RATIO (10-20); Calcium,Total 8.7 mg/dL (8.5-10.1); Chloride 98 mmol/L (98-107); Creatinine, Serum 1.75 mg/dL (0.70-1.30); EST Glomerular Filtration Rate 40 mL/min (>60); Est Glom Filt Rate - Afr Amer 48 mL/min (>60); Glucose 169 mg/dL (74-106); Magnesium 2.3 mg/dL (1.6-2.6); Phosphorus 4.3 mg/dL (2.5-4.9); Potassium 3.9 mmol/L (3.5-5.1); Protein, Total 6.4 g/dL (6.4-8.2); Sodium Level 135 mmol/L (136-145)
[2021-09-20 08:27] LABS: Differential Comment SCANNED
[2021-09-20] MEDS: Allopurinol 100 MG Tablet PO (09:32)
[2021-09-20] MEDS: dexAMETHasone 2 MG TABLET 6 MG PO (09:32)
[2021-09-20] MEDS: LINAGLIPTIN 5 MG TABLET PO (09:33)
[2021-09-20] MEDS: Atorvastatin Calcium 80 MG Tablet PO (09:33)
[2021-09-20] MEDS: Spironolactone 25 MG Tablet PO (09:33)
[2021-09-20] MEDS: Pantoprazole Sodium 40 MG Tablet PO (09:33)
[2021-09-20] MEDS: Sertraline 50 MG Tablet 25 MG PO (09:33)
[2021-09-20] MEDS: Calcium (Elemental) 500 MG Tablet PO (09:33)
[2021-09-20] MEDS: Levothyroxine 137 MCG Tablet PO (09:33)
[2021-09-20] MEDS: Amiodarone 200 MG Tablet PO (09:33)
[2021-09-20] MEDS: Clopidogrel Bisulfate 75 MG Tablet PO (09:34)
[2021-09-20] MEDS: Fenofibrate 145 MG Tablet PO (09:34)
[2021-09-20] MEDS: Furosemide 80 MG Tablet PO (09:34)
[2021-09-20] MEDS: Folic Acid 1 MG Tablet 2 MG PO (09:34)
[2021-09-20] MEDS: Cholecalciferol (VIT D3) 25 MCG TABLET (1,000 UNITS) PO (09:34)
[2021-09-20] MEDS: Gabapentin 100 MG Capsule 200 MG PO ×2 (09:34→22:49)
--- NOTE | 2021-09-20 10:17 | CASEMGMT ---
DONIS BENZ Assessment: Face to Face with pt for initial transition planning/care coordination assessment. DONIS BENZ introduced self and role at [facility], pt voices understanding and consents to assessment. Pt is A/O x4 and answers all questions appropriately at this time. Pt sitting up in bed with O2 on in no distress. Care providers, pharmacy, and demographics verified/updated. Admitting Dx: acute respiratory failure/covid-19 pna PCP:Milton HARTLEY Specialists:Jaja cardio Kathleen [facility]acy: [facility] Insurance: Milton HARTLEY Prescription Benefit: yes LW/HPOA: Pt has a LW/DPOA on file at [facility]. His DPOA is Lizet Dunn, . LNOK: Lizet Dunn, ; Napoleon Dunn, son Living Arrangements: Pt lives in a single story house with a ramp to enter. Pt reports he is I in ADL's and denies concerns at home. Transportation: Pt drives self and denies concerns with transportation. DME/HHC/SNF: Pt has a cane which he uses, walker, pulse ox, BGM with strips and lancets. Pt also states he uses insulin and has supplies. Pt states he has had HHC in the past but is unsure of the name of the agency. He denies SNF stays. Pt was first tested at [facility] for COVID. he does not believe his is positivie. He states he does not have separate bedrooms or bathrooms to quarantine from her. Discussed local in network DME companies should pt need home O2, pt has no preference. Pt states no concerns with going home at time of dc. Pt states no further concerns/needs. CM to follow. Advised pt to ask CM if any further question/concerns/needs arise, voices understanding. Pt Goal: Home Plan: Home
[2021-09-20 11:41] LABS: Bedside Glucose 144 mg/dL (70-110)
[2021-09-20] MEDS: SACUBITRIL/VALSARTAN 49-51 MG TABLET 1 EACH PO (12:42)
[2021-09-20 13:41] LABS: Pathologist Review Reviewed
--- NOTE | 2021-09-20 15:51 | PCM.PN.HOSP ---
Subjective Subjective Follow-up on acute hypoxic respiratory failure/acute COVID-19 pneumonia: Patient was seen and examined. He is currently on 8 L of oxygen. Denies any new complaints. Objective Data Objective Data Vital Signs: Vital Signs Temp Pulse Resp BP Pulse Ox 97.5 F L 70 16 102/71 85 09/20/21 12:36 09/20/21 14:42 09/20/21 12:36 09/20/21 12:36 09/20/21 12:45 Oxygen Flow Rate (L/min) 8 Oxygen Delivery Method High Flow Weight: 87.713 kg Body Mass Index (BMI) 30.2 Intake & Output: Intake and Output for Last 24 Hours 09/18/21 09/19/21 09/20/21 23:59 23:59 23:59 Intake Total 250 / 250 Output Total 475 / 475 Balance 250 / 250 -475 / -475 Lab / Micro Data Result Diagrams: 09/20/21 07:15 09/20/21 07:15 Labs: Laboratory Results - last 24 hr 09/19/21 11:53: Urine Color Yellow, Urine Clarity Clear, Urine pH 5.0, Ur Specific [place] 1.020, Urine Protein 30 H, Urine Glucose (UA) Normal, Urine Ketones 5 H, Urine Occult Blood 10 H, Urine Nitrite Negative, Urine Bilirubin Negative, Urine Urobilinogen 1 H, Ur Leukocyte Esterase Negative, Urine RBC 0 SEEN, Urine WBC 0-5 SEEN, Ur Squamous Epith Cells 0 SEEN, Urine Bacteria 1+, Hyaline Casts 10-25 SEEN, Urine Mucus 0 SEEN 09/19/21 20:58: POC Glucose 197 H 09/20/21 06:03: POC Glucose 169 H 09/20/21 07:15: WBC 3.8 L, RBC 4.60, Hgb 14.4, Hct 42.5, MCV 92.4, MCH 31.3, MCHC 33.9, RDW Std Deviation 50.5 H, RDW Coeff of Gavino 14.6, Plt Count 133 L, MPV 13.0 H, Immature Gran % (Auto) 0.500, Neut % (Auto) 83.5 H, Lymph % (Auto) 8.4 L, [place] % (Auto) 7.6, Eos % (Auto) 0.0, Baso % (Auto) 0.0, Absolute Neuts (auto) 3.2, Absolute Lymphs (auto) 0.32 L, Nucleated RBC % 0, Differential Comment SCANNED, Diff Path Review Reviewed 09/20/21 07:15: Sodium 135 L, Potassium 3.9, Chloride 98, Carbon Dioxide 24.0, Anion Gap 13, BUN 43 H, Creatinine 1.75 H, Estim Creat Clear Calc 29.90, Est GFR (MDRD) Af Amer 48 L, Est GFR (MDRD) Non-Af 40 L, BUN/Creatinine Ratio 24.6 H, Glucose 169 H, Calcium 8.7, Phosphorus 4.3, Magnesium 2.3, Total Bilirubin 0.70, AST 90 H, ALT 54, Alkaline Phosphatase 45, Total Protein 6.4, Albumin 2.4 L, Globulin 4.0, Albumin/Globulin Ratio 0.6 L 09/20/21 11:29: POC Glucose 144 H Micro: Microbiology 09/19/21 20:11 Mucosa - Nose Respiratory Panel (PCR) - Final 09/19/21 17:35 Urine, Clean Catch Legionella Antigen - Final 09/19/21 17:35 Urine, Clean Catch Streptococcus pneumoniae Antigen (M - Final 09/19/21 11:15 Mucosa - Nose Influenza Types A,B Direct FA (AMELIE) - Final 09/19/21 11:15 Nasal Secretion SARS-CoV-2 Antigen (Rapid) - Final SARS-CoV-2 (COVID 19) Physical Exam Narrative Physical exam: General: Alert, Oriented x3, appeared frail, cooperative, on 8 L of oxygen HEENT: Atraumatic Oral: Moist Mucosa Neck: Supple Lungs: Diminished to auscultation Cardiovascular: HS I+II, regular, no murmurs Abdomen: Bowel Sounds Present, Soft, Non Tender Extremities: No edema Assessment & Plan Assessment/Plan (1) COVID-19: (2) Severe malnutrition: (3) Diabetes mellitus: QUALIFIERS: Diabetes mellitus type: type 2 Diabetes mellitus intermediate insulin use: with intermediate use Diabetes mellitus complication status: with hyperglycemia Qualified Code(s): E11.65 - Type 2 diabetes mellitus with hyperglycemia; 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 Acute hypoxic respiratory failure secondary to acute COVID-19 pneumonia Patient stated that he is vaccinated; currently on 8 L of oxygen Continue on dexamethasone and remdesivir Continue on home Lasix 80 mg twice daily Add Lasix 40 mg IV x1 Check D-dimer, CXR 2. Hypokalemia, replaced, recheck labs in am 3. CKD stage IIIb, Cr about her baseline Cr is 1.75 Repeat blood work in a.m. 4. Type II DM, on continue home medication, continue on insulin sliding scale 5. Rest of chronic medical conditions including CAD status post stents, paroxysmal atrial fibrillation, hyperlipidemia -remained stable Charges/Coding Visit Charges Inpatient E&M: 73162 Subs Hosp L3
[2021-09-20 16:45] LABS: Bedside Glucose 233 mg/dL (70-110)
--- NOTE | 2021-09-20 16:50 | RAD_ITS ---
INDICATION: hypoxia,covid EXAMINATION/TECHNIQUE: X-RAY - XR Chest 1 View COMPARISON: 09/19/2021 FINDINGS: LIFE-SUPPORT AND LINES: 1. Mediastinal wires, vascular clips, transvenous pacer/AICD system without change. 2. No pneumothorax. HEART AND VESSELS: Cardiac silhouette is upper limit of normal without change. No evidence congestive failure. LUNGS AND PLEURAL SPACES: There is elevation RIGHT hemidiaphragm, RIGHT basilar atelectasis and hazy interstitial and parenchymal density in the RIGHT mid lung as well as in the retrocardiac LEFT lower lobe. There is small LEFT effusion versus pleural thickening without change. No pulmonary mass is noted. MEDIASTINUM AND HILAR REGIONS: No masses adenopathy noted. No areas of calcification. Visualized upper airway is normal in position. BONY ELEMENTS: No acute bony changes noted. RAD/Chest 1 View (Portable) IMPRESSION: 1. Stable exam. 2. Postop changes of prior CABG, transvenous pacer/AICD system without change. 3. No pneumothorax. 4. Stable cardiomegaly without evidence congestive failure. 5. Volume loss and atelectasis with elevation of the RIGHT hemidiaphragm. Hazy areas of interstitial and parenchymal density/infiltrate in the RIGHT midlung and at the LEFT base. Pleural thickening versus trace effusion on the LEFT. Electronically Signed: Gagan Kerr MD at 18:02 EST Tel , Service support ,
[2021-09-20 17:24] LABS: D-Dimer Quantitative (DVT/PE) 0.84 FEU/ug/m (0.27-0.49)
--- NOTE | 2021-09-20 19:18 | NURSING ---
attempted to call patient's . there was not an answer. a message was left with return number.
--- NOTE | 2021-09-20 19:19 | NURSING ---
Respiratory was called and notified of patient being on 15L with sats in the low 90's.
--- NOTE | 2021-09-20 19:29 | NURSING ---
this nurse got a hold of patient's via the home phone number. update given and questions were answered.
[2021-09-20] MEDS: 0.9% Saline Lock 10 ML Syringe IV ×2 (19:49→22:47)
--- NOTE | 2021-09-20 20:41 | NURSING ---
if we need to call joselito [facility] , madalyn call the home phone [phone].
[2021-09-20 22:56] LABS: Bedside Glucose 196 mg/dL (70-110)
--- NOTE | 2021-09-20 23:00 | PCS.PANDOC ---
PANDEMIC DOCUMENTATION INITIATED: Date: 09/20/2021 Time: 1900
[2021-09-21] VITALS (24 sets, daily range): BP systolic 79–94; BP diastolic 48–59; PULSE 70–71; RESP 20–24; TEMP 36.2–37.2; O2SAT 89–96
--- NOTE | 2021-09-21 01:48 | PCM.PN.BLA ---
Progress Note Patient with persistent hypotension. Patient with a history of CHF. Will give 500 mL normal saline bolus. Will start patient on midodrine.
[2021-09-21] MEDS: 0.9% Saline Lock 10 ML Syringe IV (02:02)
[2021-09-21] MEDS: Midodrine HCl 5 MG Tablet 10 MG PO ×3 (02:03→17:03)
[2021-09-21] MEDS: Insulin Lispro 100 UNIT/ML INSULN.PEN SC ×2 (06:48→12:19)
[2021-09-21 06:55] LABS: Bedside Glucose 187 mg/dL (70-110)
[2021-09-21 07:43] LABS: Absolute Lymphocyte Count 0.39 X10^3/uL (0.83-4.51); Absolute Neutrophil Count 4.1 X10^3/uL (2.0-7.7); Hematocrit 42.4 % (40-54); Hemoglobin 14.6 g/dL (13.0-16.5); Lymphocyte # 0.39 X10^3/ul (0.83-4.51); Lymphocyte % 7.9 % (19-41); Mean Corp Hgb Conc 34.4 g/dL (32-36); Mean Corpuscular Hgb 31.5 pg (27.0-32.0); Mean Corpuscular Volume 91.6 fL (80-94); Mean Platelet Vol. 13.1 fl (6.2-12.0); Monocyte# 0.48 X10^3/uL; Monocyte% 9.7 % (0-10); NRBC Flagged by Analyzer 0 % (0-5); Neutrophil # 4.06 X10^3/uL (2.7-7.7); POSITIVE DIFFERENTIAL YES; Platelet Count 163 K/mm3 (150-450); RBC Distribution Width CV 14.7 % (11.6-14.6); RBC Distribution Width SD 49.5 fl (35.1-43.9); Red Blood Count 4.63 M/mm3 (4.6-6.2)
[2021-09-21 07:45] LABS: Differential Indicated SCAN CRITERIA MET
[2021-09-21 08:06] LABS: ALB/GLOB Ratio 0.6 RATIO (0.9-2.4); AST(SGOT) 95 U/L (15-37); Alanine Aminotransfer ALT/SGPT 57 U/L (16-61); Albumin, Serum 2.3 g/dL (3.2-5.0); Alkaline Phosphatase 44 U/L (45-117); Anion Gap 10 (5-15); BUN 57 mg/dL (7-18); BUN/Creat Ratio 26.6 RATIO (10-20); Calcium,Total 8.5 mg/dL (8.5-10.1); Chloride 97 mmol/L (98-107); Creatinine, Serum 2.14 mg/dL (0.70-1.30); EST Glomerular Filtration Rate 32 mL/min (>60); Est Glom Filt Rate - Afr Amer 38 mL/min (>60); Estimated Creatinine Clearance 24.45 ml/min; Glucose 183 mg/dL (74-106); Potassium 3.8 mmol/L (3.5-5.1); Protein, Total 6.3 g/dL (6.4-8.2); Sodium Level 133 mmol/L (136-145)
--- NOTE | 2021-09-21 08:06 | PCM.PN.HOSP ---
Subjective Subjective Follow-up on acute hypoxic respiratory failure/acute COVID-19 pneumonia: Patient was seen and examined. Overnight, he was hypotensive and hypoxic. He received fluid bolus and started on midodrine. He is currently on Airvo. Objective Data Objective Data Vital Signs: Vital Signs Temp Pulse Resp BP Pulse Ox 97.2 F L 71 22 H 85/55 L 94 09/21/21 06:45 09/21/21 06:45 09/21/21 06:45 09/21/21 06:45 09/21/21 07:55 Oxygen Flow Rate (L/min) 55 Oxygen Delivery Method Airvo Weight: 87.6 kg Body Mass Index (BMI) 30.2 Intake & Output: Intake and Output for Last 24 Hours 09/19/21 09/20/21 09/21/21 23:59 23:59 23:59 Intake Total 250 / 250 350 / 350 972 / 972 Output Total 475 / 475 250 / 250 Balance 250 / 250 -125 / -125 722 / 722 Lab / Micro Data Result Diagrams: 09/21/21 06:40 09/21/21 06:40 Labs: Laboratory Results - last 24 hr 09/20/21 07:15: Differential Comment SCANNED, Diff Path Review Reviewed 09/20/21 11:29: POC Glucose 144 H 09/20/21 16:25: POC Glucose 233 H 09/20/21 16:55: D-Dimer Quant (PE/DVT) 0.84 H* 09/20/21 22:43: POC Glucose 196 H 09/21/21 06:40: WBC 5.0, RBC 4.63, Hgb 14.6, Hct 42.4, MCV 91.6, MCH 31.5, MCHC 34.4, RDW Std Deviation 49.5 H, RDW Coeff of Gavino 14.7 H, Plt Count 163, MPV 13.1 H, Immature Gran % (Auto) 0.400, Neut % (Auto) 82.0 H, Lymph % (Auto) 7.9 L, Bartholomew % (Auto) 9.7, Eos % (Auto) 0.0, Baso % (Auto) 0.0, Absolute Neuts (auto) 4.1, Absolute Lymphs (auto) 0.39 L, Nucleated RBC % 0 09/21/21 06:44: POC Glucose 187 H Micro: Microbiology 09/19/21 20:11 Mucosa - Nose Respiratory Panel (PCR) - Final 09/19/21 17:35 Urine, Clean Catch Legionella Antigen - Final 09/19/21 17:35 Urine, Clean Catch Streptococcus pneumoniae Antigen (M - Final 09/19/21 11:15 Mucosa - Nose Influenza Types A,B Direct FA (AMELIE) - Final 09/19/21 11:15 Nasal Secretion SARS-CoV-2 Antigen (Rapid) - Final SARS-CoV-2 (COVID 19) Radiography Diagnostic Testing: Radiology Impression Chest X-Ray 09/20/21 16:50 IMPRESSION: 1. Stable exam. 2. Postop changes of prior CABG, transvenous pacer/AICD system without change. 3. No pneumothorax. 4. Stable cardiomegaly without evidence congestive failure. 5. Volume loss and atelectasis with elevation of the RIGHT hemidiaphragm. Hazy areas of interstitial and parenchymal density/infiltrate in the RIGHT midlung and at the LEFT base. Pleural thickening versus trace effusion on the LEFT. 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 Acute hypoxic respiratory failure secondary to acute COVID-19 pneumonia, worsening Patient is vaccinated; on Airvo Continue on dexamethasone Discontinued remdesivir on account of acute kidney injury D-dimer yesterday was 0.84 Repeat chest x-ray was not different from previous Will consult ID and pulmonary 2. Hypotension, s/p fluid boluses Blood pressure meds on hold. Lasix on hold, will continue to monitor 3. FILIPE on CKD stage IIIb, creatinine increased to 2.14 secondary to #2 Will trend 4. Chronic lung disease, history of large empyema status post chest tube placement Not on oxygen at home 5. CAD status post CABG/PCI to saphenous graft to RCA/chronic systolic CHF, EF of 25%, status post biventricular AICD/CardioMEMS device Continue on amiodarone, statin, Plavix, TriCor, Lasix, Coumadin INR pending 6. Type II DM, on continue home medication, continue on insulin sliding scale Charges/Coding Visit Charges Inpatient E&M: 33570 [facility] Hosp L3
[2021-09-21 08:31] LABS: International Normalized Ratio 1.9; Prothrombin Time (Protime)PT. 20.9 SECONDS (11.7-14.9)
[2021-09-21 09:05] LABS: Magnesium 2.6 mg/dL (1.6-2.6); Troponin-I HS 30 pg/mL (3.0-78.0)
[2021-09-21] MEDS: dexAMETHasone 2 MG TABLET 6 MG PO (09:41)
[2021-09-21] MEDS: Allopurinol 100 MG Tablet PO (09:42)
[2021-09-21] MEDS: Gabapentin 100 MG Capsule 200 MG PO (09:42)
[2021-09-21] MEDS: Cholecalciferol (VIT D3) 25 MCG TABLET (1,000 UNITS) PO (09:43)
[2021-09-21] MEDS: Fenofibrate 145 MG Tablet PO (09:43)
[2021-09-21] MEDS: Pantoprazole Sodium 40 MG Tablet PO (09:44)
[2021-09-21] MEDS: Folic Acid 1 MG Tablet 2 MG PO (09:44)
[2021-09-21] MEDS: Levothyroxine 137 MCG Tablet PO (09:44)
[2021-09-21] MEDS: Sertraline 50 MG Tablet 25 MG PO (09:44)
[2021-09-21] MEDS: Atorvastatin Calcium 80 MG Tablet PO (09:44)
[2021-09-21] MEDS: LINAGLIPTIN 5 MG TABLET PO (09:44)
[2021-09-21] MEDS: Calcium (Elemental) 500 MG Tablet PO (09:45)
[2021-09-21] MEDS: Clopidogrel Bisulfate 75 MG Tablet PO (09:45)
[2021-09-21] MEDS: Amiodarone 200 MG Tablet PO (09:45)
--- NOTE | 2021-09-21 10:48 | CON.PCM.ID_ITS ---
Assessment & Plan Assessment/Plan (1) Pneumonia due to COVID-19 virus: PLAN: Sx started 09/13. Single dose of vaccine in the past, he thinks. Isolate until 10/03. Recommended get tested even if asymptomatic. On dex. Remdesivir stopped due to FILIPE on CKD. Reviewed EUA and risks/benefits, we agree to start baricitinib. Will follow, thank you (2) Acute respiratory failure with hypoxia: (3) FILIPE (acute kidney injury): HPI Consult Data Date of Consult: 09/21/21 HPI Narrative HPI Narrative: SATISH MCLAUGHLIN, is a 81 M with CKD, CHF, who presented 09/19 to the ED with sx since 09/13. Went to ED 09/14 c/o n/v, not feeling well. Covid test not done at that time. Developed loss of taste, headache, fever, chills, fatigue, cough, and progressive dyspnea. Came back 09/19, covid (+), admitted on dex, remdesivir. Feeling a little better. Reports single dose covid vaccine. at home feeling ok. Now worsened O2, remdesivir stopped due to rising Cr. Full ROS performed and neg except as noted above. [facility] Medical History Acute exacerbation of CHF (congestive heart failure) Atherosclerotic heart disease of [place] coronary artery without angina pectoris Atrial fibrillation Atrioventricular block 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 (~04/20/02) Chronic combined systolic and diastolic CHF (congestive heart failure) CKD (chronic kidney disease), stage III Coronary artery disease Gout Heart failure History of cardiac pacemaker (~07/14/01) History of DVT (deep vein thrombosis) History of myocardial infarction HLD (hyperlipidemia) Hypertension Hyponatremia Hypothyroidism Ischemic cardiomyopathy Lactic acidosis group home (current) use of anticoagulants Neuropathy Non-ST elevation (NSTEMI) myocardial infarction Obesity YUSUF (obstructive sleep apnea) Paroxysmal atrial fibrillation Paroxysmal ventricular tachycardia Premature ventricular contraction Presence of stent of bypass graft (~11/23/19) Supratherapeutic INR Type 2 diabetes mellitus Home Medications allopurinol 100 mg PO DAILY 11/27/19 [History Last Taken 09/19/21] clopidogrel 75 mg PO DAILY 11/27/19 [History Last Taken 09/19/21] pantoprazole 40 mg PO DAILY 11/27/19 [History Last Taken 09/19/21] omega-3 fatty acids-fish oil 2 each PO DAILY 01/07/21 [History Last Taken 09/18/21] sertraline 25 mg PO DAILY 01/07/21 [History Last Taken 09/18/21] torsemide 40 mg PO BID 01/07/21 [History Last Taken 09/19/21] pen needle, diabetic 32 gauge x 32 #100 ea 03/10/21 [Rx Last Taken Unknown] rosuvastatin 40 mg tablet 40 mg PO DAILY tab 03/10/21 [History Last Taken 09/19/21] cholecalciferol (vitamin D3) 25 mcg (1,000 unit) tablet 25 mcg PO DAILY 04/13/21 [History Last Taken 09/19/21] gabapentin 100 mg capsule 200 mg PO BID cap 04/13/21 [History Last Taken 09/19/21] insulin glargine 100 unit/mL (3 mL) subcutaneous pen 40 unit SUBCUT QAM ml 04/13/21 [History Last Taken 09/19/21] nitroglycerin 0.4 mg sublingual tablet 0.4 mg SUBLINGUAL Q5M PRN MDD 3 04/13/21 [History Last Taken Unknown] calcium citrate 200 mg (950 mg) tablet 600 mg PO DAILY tab 05/05/21 [History Last Taken 09/19/21] folic acid 1 mg tablet 2 mg PO DAILY #180 tab 05/08/21 [Rx Last Taken 09/18/21] warfarin 1 mg tablet 1 mg PO MOTUWETHFRSA #90 tab 08/10/21 [Rx Last Taken 09/18/21] Entresto 1 ea PO BID 08/26/21 [History Last Taken 09/19/21] fenofibrate micronized 200 mg PO DAILY 08/26/21 [History Last Taken 09/19/21] amiodarone 200 mg tablet 200 mg PO DAILY #90 tab 08/31/21 [Rx Last Taken 09/19/21] Januvia 50 mg PO DAILY 09/19/21 [History Last Taken 09/18/21] levothyroxine 137 mcg PO DAILY 09/19/21 [History Last Taken 09/19/21] spironolactone 25 mg PO DAILY 09/19/21 [History Last Taken 09/19/21] warfarin 2 mg PO LIAO 09/19/21 [History Last Taken 09/17/21] Allergy/AdvReac Type Severity Reaction Status Date / Time Iodine and Iodide Containing AdvReac Severe Diarrhea Verified 09/19/21 10:19 Produc metformin AdvReac Upset Verified 09/19/21 10:19 Stomach niacin AdvReac Other Verified 09/19/21 10:19 Family History Father Myocardial infarction Surgical History Aortocoronary bypass status (~06/18/96) History of cardiac radiofrequency ablation (~06/12/07) History of coronary artery stent placement History of implantable cardioverter-defibrillator (ICD) placement (~07/14/01) History of PTCA History of tonsillectomy Social History Smoking Status: Never smoker alcohol intake: never substance use type: does not use caffeine: Yes Type: coffee Number of servings: 2 Physical Exam Const alert and oriented x3 General Appearance: cooperative Exam Limitations: no limitations HEENT normocephalic and head/scalp atraumatic Eyes PERRL and EOMs intact bilaterally Neck supple and No nodes Resp clear to auscultation bilaterally Auscultation: diminished lung sounds Cardio regular rate and regular rhythm GI normal to inspection, nondistended, normoactive bowel sounds Extremity no clubbing, cyanosis or edema Skin no rashes or lesions noted Neuro CN's II-XII intact bilaterally Lab / Micro Data Result Diagrams: 09/21/21 06:40 09/21/21 06:40 Labs: Laboratory Results - last 24 hr 09/20/21 07:15: Diff Path Review Reviewed 09/20/21 11:29: POC Glucose 144 H 09/20/21 16:25: POC Glucose 233 H 09/20/21 16:55: D-Dimer Quant (PE/DVT) 0.84 H* 09/20/21 22:43: POC Glucose 196 H 09/21/21 06:40: WBC 5.0, RBC 4.63, Hgb 14.6, Hct 42.4, MCV 91.6, MCH 31.5, MCHC 34.4, RDW Std Deviation 49.5 H, RDW Coeff of Gavino 14.7 H, Plt Count 163, MPV 13.1 H, Immature Gran % (Auto) 0.400, Neut % (Auto) 82.0 H, Lymph % (Auto) 7.9 L, [place] % (Auto) 9.7, Eos % (Auto) 0.0, Baso % (Auto) 0.0, Absolute Neuts (auto) 4.1, Absolute Lymphs (auto) 0.39 L, Nucleated RBC % 0, Differential Comment COMMENT 09/21/21 06:40: Sodium 133 L, Potassium 3.8, Chloride 97 L, Carbon Dioxide 26.0, Anion Gap 10, BUN 57 H, Creatinine 2.14 H, Estim Creat Clear Calc 24.45, Est GFR (MDRD) Af Amer 38 L, Est GFR (MDRD) Non-Af 32 L, BUN/Creatinine Ratio 26.6 H, Glucose 183 H, Calcium 8.5, Total Bilirubin 0.60, AST 95 H, ALT 57, Alkaline Phosphatase 44 L, Total Protein 6.3 L, Albumin 2.3 L, Globulin 4.0, Albumin/Globulin Ratio 0.6 L 09/21/21 06:40: Magnesium 2.6, Troponin I High Sens 30 09/21/21 06:44: POC Glucose 187 H 09/21/21 08:15: PT 20.9 H, INR 1.9 Micro: Microbiology 09/19/21 20:11 Mucosa - Nose Respiratory Panel (PCR) - Final Radiology Impression Chest X-Ray 09/20/21 16:50 IMPRESSION: 1. Stable exam. 2. Postop changes of prior CABG, transvenous pacer/AICD system without change. 3. No pneumothorax. 4. Stable cardiomegaly without evidence congestive failure. 5. Volume loss and atelectasis with elevation of the RIGHT hemidiaphragm. Hazy areas of interstitial and parenchymal density/infiltrate in the RIGHT midlung and at the LEFT base. Pleural thickening versus trace effusion on the LEFT. Electronically Signed: Gagan Kerr MD at 18:02 EST Tel , Service support ,
[2021-09-21 12:35] LABS: Bedside Glucose 176 mg/dL (70-110)
--- NOTE | 2021-09-21 14:21 | EX.PCM.CONCC ---
Assessment & Plan Assessment/Plan (1) Pneumonia due to COVID-19 virus: (2) Acute respiratory failure with hypoxia: (3) FILIPE (acute kidney injury): (4) Severe malnutrition: (5) Diabetes mellitus: QUALIFIERS: Diabetes mellitus type: type 2 Diabetes mellitus superintendent container terminal insulin use: with superintendent container terminal use Diabetes mellitus complication status: with hyperglycemia Qualified Code(s): E11.65 - Type 2 diabetes mellitus with hyperglycemia; Z79.4 - alf (current) use of insulin (6) CKD (chronic kidney disease), stage III: QUALIFIERS: Chronic kidney disease stage 3 subtype: unspecified whether 3a or 3b Qualified Code(s): N18.30 - Chronic kidney disease, stage 3 unspecified PLAN: RECOMMENDATIONS: 1. Continue baricitinib (10/04/2021) and Decadron (09/30/2021) 2. Encourage prone positioning, Acapella and incentive spirometer as tolerated 3. Monitor daily labs for complications of medications 4. Continue basal insulin with titration as necessary 5. Add vitamin C and zinc IMPRESSIONS: 1. Acute hypoxic respiratory failure secondary to COVID-19 pneumonia Patient is reportedly vaccinated, but requiring significantly increased oxygen over the last 24 hours. Patient is on Decadron and was recently started on baricitinib. Patient has completed Remdesivir. Fluid status will be difficult given patient's underlying cardiac issues. Will add vitamin C and zinc. Encourage prone position, Acapella and incentive spirometer as tolerated. Patient will also be scheduled on mucolytic therapy to help with pulmonary toileting. 2. Chronic systolic CHF with ischemic cardiomyopathy status post stents and CABG Patient appears to be relatively euvolemic at this time. Patient's blood pressure is marginal limiting treatment options. Patient does remain anticoagulated, but is slightly subtherapeutic at this time. 3. Diabetes mellitus/advanced age/history of loculated effusion/malnutrition Complicates care, management, recovery and prognosis. Continue to titrate insulin therapy as necessary. Patient is on supplements. HPI Consult Data Date of Consult: 09/21/21 HPI Narrative HPI Narrative: SATISH MCLAUGHLIN is an 81 M, with past medical history listed below, who presents to [facility] on 09/19/2021 secondary to generalized weakness. Patient has a complicated cardiac history with last known ejection fraction around 30%, chronic kidney disease and reported chronic lung disease. Patient reportedly started symptoms 7 days prior to presentation with nausea and vomiting. Patient was seen in the ER, but discharged when lab work became okay approximately 5 days ago. On the day of presentation for this visit patient was too tired and weak to get out of bed prompting a visit to the ER. Patient reportedly received his second dose of vaccination against COVID-19 4 weeks prior to presentation. In the ER, patient was afebrile normotensive and saturating okay on room air. However, over the course of the ER, patient became hypoxic requiring 3 L to maintain saturations. Laboratory work-up was relatively unremarkable except for a lower potassium of 3.4, sodium at 134 and a creatinine of 1.8. BNP was slightly elevated at 167. Chest x-ray showed right basilar atelectasis versus infiltrate and a possible effusion. A CT of the abdomen and pelvis showed a new right lower lobe infiltrate with pleural parenchymal chronic changes in the left base. Patient subsequently tested positive for COVID-19. Since being in the hospital, patient has had progressive hypoxia. Patient was started on Remdesivir and Decadron. Patient was also continued on his home Lasix dosing, but has gone from needing 3 to 4 L nasal cannula oxygen to being on Airvo. Patient overall feels subjectively weak, but not reporting significant shortness of breath when he is not moving. Patient does not report a really extensive pulmonary history. Patient states he has required supplemental oxygen in the past secondary to his heart. Patient does not use any inhalers and has not required supplemental oxygen previously. Review of systems otherwise negative from a constitutional, HEENT, respiratory, cardiovascular, GI, genitourinary, musculoskeletal, skin, neurologic, psychiatric and hematologic system unless stated above. [facility] Medical History Acute exacerbation of CHF (congestive heart failure) Atherosclerotic heart disease of [place] coronary artery without angina pectoris Atrial fibrillation Atrioventricular block 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 (~04/20/02) Chronic combined systolic and diastolic CHF (congestive heart failure) CKD (chronic kidney disease), stage III Coronary artery disease Gout Heart failure History of cardiac pacemaker (~07/14/01) History of DVT (deep vein thrombosis) History of myocardial infarction HLD (hyperlipidemia) Hypertension Hyponatremia Hypothyroidism Ischemic cardiomyopathy Lactic acidosis 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 Neuropathy Non-ST elevation (NSTEMI) myocardial infarction Obesity YUSUF (obstructive sleep apnea) Paroxysmal atrial fibrillation Paroxysmal ventricular tachycardia Premature ventricular contraction Presence of stent of bypass graft (~11/23/19) Supratherapeutic INR Type 2 diabetes mellitus Home Medications allopurinol 100 mg PO DAILY 11/27/19 [History Last Taken 09/19/21] clopidogrel 75 mg PO DAILY 11/27/19 [History Last Taken 09/19/21] pantoprazole 40 mg PO DAILY 11/27/19 [History Last Taken 09/19/21] omega-3 fatty acids-fish oil 2 each PO DAILY 01/07/21 [History Last Taken 09/18/21] sertraline 25 mg PO DAILY 01/07/21 [History Last Taken 09/18/21] torsemide 40 mg PO BID 01/07/21 [History Last Taken 09/19/21] pen needle, diabetic 32 gauge x 32 #100 ea 03/10/21 [Rx Last Taken Unknown] rosuvastatin 40 mg tablet 40 mg PO DAILY tab 03/10/21 [History Last Taken 09/19/21] cholecalciferol (vitamin D3) 25 mcg (1,000 unit) tablet 25 mcg PO DAILY 04/13/21 [History Last Taken 09/19/21] gabapentin 100 mg capsule 200 mg PO BID cap 04/13/21 [History Last Taken 09/19/21] insulin glargine 100 unit/mL (3 mL) subcutaneous pen 40 unit SUBCUT QAM ml 04/13/21 [History Last Taken 09/19/21] nitroglycerin 0.4 mg sublingual tablet 0.4 mg SUBLINGUAL Q5M PRN MDD 3 04/13/21 [History Last Taken Unknown] calcium citrate 200 mg (950 mg) tablet 600 mg PO DAILY tab 05/05/21 [History Last Taken 09/19/21] folic acid 1 mg tablet 2 mg PO DAILY #180 tab 05/08/21 [Rx Last Taken 09/18/21] warfarin 1 mg tablet 1 mg PO MOTUWETHFRSA #90 tab 08/10/21 [Rx Last Taken 09/18/21] Entresto 1 ea PO BID 08/26/21 [History Last Taken 09/19/21] fenofibrate micronized 200 mg PO DAILY 08/26/21 [History Last Taken 09/19/21] amiodarone 200 mg tablet 200 mg PO DAILY #90 tab 08/31/21 [Rx Last Taken 09/19/21] Januvia 50 mg PO DAILY 09/19/21 [History Last Taken 09/18/21] levothyroxine 137 mcg PO DAILY 09/19/21 [History Last Taken 09/19/21] spironolactone 25 mg PO DAILY 09/19/21 [History Last Taken 09/19/21] warfarin 2 mg PO LIAO 09/19/21 [History Last Taken 09/17/21] Allergy/AdvReac Type Severity Reaction Status Date / Time Iodine and Iodide Containing AdvReac Severe Diarrhea Verified 09/19/21 10:19 Produc metformin AdvReac Upset Verified 09/19/21 10:19 Stomach niacin AdvReac Other Verified 09/19/21 10:19 Family History Father Myocardial infarction Surgical History Aortocoronary bypass status (~06/18/96) History of cardiac radiofrequency ablation (~06/12/07) History of coronary artery stent placement History of implantable cardioverter-defibrillator (ICD) placement (~07/14/01) History of PTCA History of tonsillectomy Social History Smoking Status: Never smoker alcohol intake: never substance use type: does not use caffeine: Yes Type: coffee Number of servings: 2 ROS ROS Narrative See HPI Physical Exam Const alert and oriented x3 Constitutional Narrative: On Airvo. Moderate conversational dyspnea. General Appearance: cooperative and ill appearing Positive for acutely HEENT normocephalic and head/scalp atraumatic Eyes PERRL and EOMs intact bilaterally Neck supple and No nodes Chest inspection of chest normal Chest: symmetrical chest wall rise; Negative for crepitus Resp Auscultation: diminished lung sounds; Negative for rales, rhonchi or wheezes Cardio regular rate, regular rhythm, S1 normal heart sound, S2 normal heart sound, no rub and no gallops GI normal to inspection, nondistended, normoactive bowel sounds Extremity no clubbing, cyanosis or edema Skin no rashes or lesions noted Neuro oriented x3 and CN's II-XII intact bilaterally Psych mental status grossly normal and thought process normal Lab / Micro Data Result Diagrams: 09/21/21 06:40 09/21/21 06:40 Labs: Laboratory Results - last 24 hr 09/20/21 16:25: POC Glucose 233 H 09/20/21 16:55: D-Dimer Quant (PE/DVT) 0.84 H* 09/20/21 22:43: POC Glucose 196 H 09/21/21 06:40: WBC 5.0, RBC 4.63, Hgb 14.6, Hct 42.4, MCV 91.6, MCH 31.5, MCHC 34.4, RDW Std Deviation 49.5 H, RDW Coeff of Gavino 14.7 H, Plt Count 163, MPV 13.1 H, Immature Gran % (Auto) 0.400, Neut % (Auto) 82.0 H, Lymph % (Auto) 7.9 L, [place] % (Auto) 9.7, Eos % (Auto) 0.0, Baso % (Auto) 0.0, Absolute Neuts (auto) 4.1, Absolute Lymphs (auto) 0.39 L, Nucleated RBC % 0, Differential Comment COMMENT 09/21/21 06:40: Sodium 133 L, Potassium 3.8, Chloride 97 L, Carbon Dioxide 26.0, Anion Gap 10, BUN 57 H, Creatinine 2.14 H, Estim Creat Clear Calc 24.45, Est GFR (MDRD) Af Amer 38 L, Est GFR (MDRD) Non-Af 32 L, BUN/Creatinine Ratio 26.6 H, Glucose 183 H, Calcium 8.5, Total Bilirubin 0.60, AST 95 H, ALT 57, Alkaline Phosphatase 44 L, Total Protein 6.3 L, Albumin 2.3 L, Globulin 4.0, Albumin/Globulin Ratio 0.6 L 09/21/21 06:40: Magnesium 2.6, Troponin I High Sens 30 09/21/21 06:44: POC Glucose 187 H 09/21/21 08:15: PT 20.9 H, INR 1.9 09/21/21 12:17: POC Glucose 176 H Micro: Microbiology 09/19/21 11:40 Blood Culture (Wb) - Anticubital Left Blood Culture - Preliminary No growth in 48 hours. 09/19/21 11:25 Blood Culture (Wb) - Arm Right Blood Culture - Preliminary No growth in 48 hours. Radiology Impression Chest X-Ray 09/20/21 16:50 IMPRESSION: 1. Stable exam. 2. Postop changes of prior CABG, transvenous pacer/AICD system without change. 3. No pneumothorax. 4. Stable cardiomegaly without evidence congestive failure. 5. Volume loss and atelectasis with elevation of the RIGHT hemidiaphragm. Hazy areas of interstitial and parenchymal density/infiltrate in the RIGHT midlung and at the LEFT base. Pleural thickening versus trace effusion on the LEFT. Electronically Signed: Gagan Kerr MD at 18:02 EST Tel , Service support , Charges/Coding Visit Charges Inpatient E&M: 40932 Init Hosp L3
[2021-09-21 16:31] LABS: Bedside Glucose 176 mg/dL (70-110)
[2021-09-21] MEDS: Ascorbic Acid 500 MG Tablet 1000 MG PO (17:03)
[2021-09-22] VITALS (20 sets, daily range): BP systolic 76–99; BP diastolic 47–59; PULSE 67–82; RESP 14–28; TEMP 35.5–36.5; O2SAT 88–96
[2021-09-22] MEDS: 0.9% Normal Saline 1,000 ML 100 ML IV (00:38)
[2021-09-22] MEDS: Gabapentin 100 MG Capsule 200 MG PO ×2 (00:43→09:21)
[2021-09-22] MEDS: guaiFENesin 1,200 MG Tablet 1200 MG PO ×2 (00:43→09:20)
[2021-09-22] MEDS: Insulin Lispro 100 UNIT/ML INSULN.PEN SC (00:44)
[2021-09-22] MEDS: Ondansetron 4 MG/2 ML Vial IV (01:08)
[2021-09-22 01:25] LABS: Bedside Glucose 158 mg/dL (70-110)
--- NOTE | 2021-09-22 02:48 | CPS ---
Patient transitioned to AVAPS BiPAP mode for continued low saturations on 27/05 90%. Patient comfortable on this mode. RN aware of change.
[2021-09-22 06:25] LABS: Absolute Lymphocyte Count 0.54 X10^3/uL (0.83-4.51); Absolute Neutrophil Count 9.8 X10^3/uL (2.0-7.7); Basophil# 0.02 X10^3/uL; Basophil% 0.2 % (0-1); Hematocrit 41.2 % (40-54); Lymphocyte # 0.54 X10^3/ul (0.83-4.51); Lymphocyte % 4.8 % (19-41); Mean Corpuscular Volume 91.4 fL (80-94); Mean Platelet Vol. 12.7 fl (6.2-12.0); Monocyte# 0.76 X10^3/uL; Monocyte% 6.8 % (0-10); NRBC Flagged by Analyzer 0 % (0-5); Neutrophil # 9.75 X10^3/uL (2.7-7.7); Neutrophil % 87.3 % (47-70); POSITIVE DIFFERENTIAL YES; POSITIVE MORPHOLOGY YES; Platelet Count 186 K/mm3 (150-450); RBC Distribution Width CV 14.8 % (11.6-14.6); RBC Distribution Width SD 49.3 fl (35.1-43.9); Red Blood Count 4.51 M/mm3 (4.6-6.2); White Blood Count 11.2 K/mm3 (4.4-11.0)
[2021-09-22 06:32] LABS: Differential Indicated SCAN CRITERIA MET
[2021-09-22 06:36] LABS: International Normalized Ratio 2.1; Prothrombin Time (Protime)PT. 22.5 SECONDS (11.7-14.9)
[2021-09-22 06:59] LABS: Atypical Lymphocyte 1+ %
[2021-09-22 07:04] LABS: ALB/GLOB Ratio 0.5 RATIO (0.9-2.4); AST(SGOT) 92 U/L (15-37); Alanine Aminotransfer ALT/SGPT 52 U/L (16-61); Albumin, Serum 1.9 g/dL (3.2-5.0); Alkaline Phosphatase 46 U/L (45-117); Anion Gap 11 (5-15); BUN 72 mg/dL (7-18); Calcium,Total 8.5 mg/dL (8.5-10.1); Chloride 102 mmol/L (98-107); Creatinine, Serum 2.67 mg/dL (0.70-1.30); EST Glomerular Filtration Rate 24 mL/min (>60); Est Glom Filt Rate - Afr Amer 30 mL/min (>60); Glucose 101 mg/dL (74-106); Potassium 4.1 mmol/L (3.5-5.1); Protein, Total 5.9 g/dL (6.4-8.2); Sodium Level 133 mmol/L (136-145)
[2021-09-22 07:46] LABS: Bedside Glucose 100 mg/dL (70-110)
[2021-09-22] MEDS: Atorvastatin Calcium 80 MG Tablet PO (09:19)
[2021-09-22] MEDS: Folic Acid 1 MG Tablet 2 MG PO (09:19)
[2021-09-22] MEDS: dexAMETHasone 2 MG TABLET 6 MG PO (09:19)
[2021-09-22] MEDS: Cholecalciferol (VIT D3) 25 MCG TABLET (1,000 UNITS) PO (09:19)
[2021-09-22] MEDS: Midodrine HCl 5 MG Tablet 10 MG PO ×2 (09:20→13:42)
[2021-09-22] MEDS: Ascorbic Acid 500 MG Tablet 1000 MG PO (09:20)
[2021-09-22] MEDS: Pantoprazole Sodium 40 MG Tablet PO (09:20)
[2021-09-22] MEDS: Calcium (Elemental) 500 MG Tablet PO (09:20)
[2021-09-22] MEDS: LINAGLIPTIN 5 MG TABLET PO (09:20)
[2021-09-22] MEDS: Fenofibrate 145 MG Tablet PO (09:21)
[2021-09-22] MEDS: Sertraline 50 MG Tablet 25 MG PO (09:21)
[2021-09-22] MEDS: Clopidogrel Bisulfate 75 MG Tablet PO (09:21)
[2021-09-22] MEDS: Allopurinol 100 MG Tablet PO (09:22)
[2021-09-22] MEDS: Levothyroxine 137 MCG Tablet PO (09:22)
[2021-09-22] MEDS: Amiodarone 200 MG Tablet PO (09:25)
[2021-09-22 10:06] LABS: Bedside Glucose 98 mg/dL (70-110)
--- NOTE | 2021-09-22 12:35 | PN.HOSP_ITS ---
Subjective Subjective Follow-up on acute hypoxic respiratory failure/acute COVID-19 pneumonia: Patient was seen and examined. He has been dependent on BiPAP. Blood pressure is also running low. Objective Data Objective Data Vital Signs: Vital Signs Temp Pulse Resp BP Pulse Ox 97.4 F L 77 24 H 76/55 L 88 09/22/21 08:52 09/22/21 09:28 09/22/21 09:28 09/22/21 08:52 09/22/21 10:20 Oxygen Flow Rate (L/min) 55 Oxygen Delivery Method Bi-pap Weight: 91.6 kg Body Mass Index (BMI) 30.2 Intake & Output: Intake and Output for Last 24 Hours 09/20/21 09/21/21 09/22/21 23:59 23:59 23:59 Intake Total 350 / 350 1772 / 1772 1000 / 1000 Output Total 475 / 475 250 / 575 625 / 625 Balance -125 / -125 1522 / 1197 375 / 375 Lab / Micro Data Result Diagrams: 09/22/21 06:09 09/22/21 06:09 Labs: Laboratory Results - last 24 hr 09/21/21 12:17: POC Glucose 176 H 09/21/21 16:16: POC Glucose 176 H 09/22/21 00:42: POC Glucose 158 H 09/22/21 06:09: WBC 11.2 H, RBC 4.51 L, Hgb 14.0, Hct 41.2, MCV 91.4, MCH 31.0, MCHC 34.0, RDW Std Deviation 49.3 H, RDW Coeff of Gavino 14.8 H, Plt Count 186, MPV 12.7 H, Immature Gran % (Auto) 0.900, Neut % (Auto) 87.3 H, Lymph % (Auto) 4.8 L , [place] % (Auto) 6.8, Eos % (Auto) 0.0, Baso % (Auto) 0.2, Absolute Neuts (auto) 9.8 H, Absolute Lymphs (auto) 0.54 L, Nucleated RBC % 0, Atypical Lymphocytes 1+ 09/22/21 06:09: Sodium 133 L, Potassium 4.1, Chloride 102, Carbon Dioxide 20.0 L , Anion Gap 11, BUN 72 H, Creatinine 2.67 H, Estim Creat Clear Calc 19.60, Est GFR (MDRD) Af Amer 30 L, Est GFR (MDRD) Non-Af 24 L, BUN/Creatinine Ratio 27.0 H , Glucose 101, Calcium 8.5, Total Bilirubin 0.70, AST 92 H, ALT 52, Alkaline Phosphatase 46, Total Protein 5.9 L, Albumin 1.9 L, Globulin 4.0, Albumin/Globulin Ratio 0.5 L 09/22/21 06:09: PT 22.5 H, INR 2.1 09/22/21 06:49: POC Glucose 100 09/22/21 09:42: POC Glucose 98 Micro: Microbiology 09/19/21 11:40 Blood Culture (Wb) - Anticubital Left Blood Culture - Preliminary No growth in 48 hours. 09/19/21 11:25 Blood Culture (Wb) - Arm Right Blood Culture - Preliminary No growth in 48 hours. 09/19/21 20:11 Mucosa - Nose Respiratory Panel (PCR) - Final 09/19/21 17:35 Urine, Clean Catch Legionella Antigen - Final 09/19/21 17:35 Urine, Clean Catch Streptococcus pneumoniae Antigen (M - Final 09/19/21 11:15 Mucosa - Nose Influenza Types A,B Direct FA (AMELIE) - Final 09/19/21 11:15 Nasal Secretion SARS-CoV-2 Antigen (Rapid) - Final SARS-CoV-2 (COVID 19) Physical Exam Narrative Physical exam: General: Alert, Oriented x3, appeared frail, cooperative, on BiPAP HEENT: Atraumatic Oral: Moist Mucosa Neck: Supple Lungs: Diminished to auscultation Cardiovascular: HS I+II, regular, no murmurs Abdomen: Bowel Sounds Present, Soft, Non Tender Extremities: No edema Assessment & Plan Assessment/Plan (1) COVID-19: (2) Severe malnutrition: (3) Diabetes mellitus: QUALIFIERS: Diabetes mellitus type: type 2 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 Acute hypoxic respiratory failure secondary to acute COVID-19 pneumonia, worsening Patient is vaccinated; on Airvo Continue on dexamethasone and baricitinib Discontinued remdesivir on account of acute kidney injury D-dimer yesterday was 0.84 Repeat chest x-ray was not different from previous ID and pulmonology following Discussed with on phone, agreeable to hospice - to come in and see patient 2. Hypotension, s/p fluid boluses, blood pressure remains low Blood pressure meds on hold. Lasix on hold, will continue to monitor 3. FILIPE on CKD stage IIIb, worsening Creatinine increased to 2.67 secondary to #2 Will trend 4. Chronic lung disease, history of large empyema status post chest tube p lacement Not on oxygen at home 5. CAD status post CABG/PCI to saphenous graft to RCA/chronic systolic CHF, EF of 25%, status post biventricular AICD/CardioMEMS device Continue on amiodarone, statin, Plavix, TriCor, Lasix, Coumadin INR is 2.1 6. Type II DM, on continue home medication, continue on insulin sliding scale Charges/Coding Visit Charges Inpatient E&M: 83126 Subs Hosp L3
--- NOTE | 2021-09-22 13:03 | CASEMGMT ---
Social Work Note SW received referral for Hospice consult. SW placed a call to [facility] and spoke with Rosio. SW provided referral to Rosio. SW faxed referral to [facility]. Plan: Hospice consult Kayla Yoon REPORTING ANALYST, RESTAURANT INSPECTOR
--- NOTE | 2021-09-22 13:44 | PCM.PN.INT ---
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 Continue baricitinib (10/04/2021) and Decadron (09/30/2021) 2. Encourage prone positioning, Acapella and incentive spirometer as tolerated 3. Monitor daily labs for complications of medications 4. Continue basal insulin with titration as necessary 5. Hold on ABG. Await hospice discussion IMPRESSIONS: 1. Acute hypoxic respiratory failure secondary to COVID-19 pneumonia Patient is reportedly vaccinated, but requiring significantly increased oxygen over the last 24 hours. Patient is on Decadron and was recently started on baricitinib. Patient has completed Remdesivir. Fluid status will be difficult given patient's underlying cardiac issues. Patient with significant worsening over the last 24 hours. Patient currently requiring high FiO2 with BiPAP. Patient is lethargic at this time, but family is reportedly interested in palliative measures. We will hold off on ABG for now. If aggressive measures requested, ABG could be of diagnostic importance as respiratory acidosis would be suggestive of respiratory muscle fatigue and poor prognosis. Low clinical suspicion that intubation will significantly change outcome given comorbidities. Await decision. 2. Chronic systolic CHF with ischemic cardiomyopathy status post stents and CABG Patient appears to be relatively euvolemic at this time. Patient's blood pressure is marginal limiting treatment options. Patient does remain anticoagulated, but is slightly subtherapeutic at this time. 3. Diabetes mellitus/advanced age/history of loculated effusion/malnutrition Complicates care, management, recovery and prognosis. Continue to titrate insulin therapy as necessary. Patient is on supplements. Subjective Subjective Patient did okay overnight. Patient has not been able to tolerate any breaks from BiPAP therapy. Patient was very drowsy during my evaluation. Discussed with hospitalist and has been called. Anticipate palliative measures as family was very clear that he is a DO NOT INTUBATE. Objective Data Objective Data Vital Signs: Vital Signs Temp Pulse Resp BP Pulse Ox 36.3 C L 77 24 H 76/55 L 88 09/22/21 08:52 09/22/21 09:28 09/22/21 09:28 09/22/21 08:52 09/22/21 10:20 Oxygen Flow Rate (L/min) 55 Oxygen Delivery Method Bi-pap Weight: 91.6 kg Body Mass Index (BMI) 30.2 Intake & Output: Intake and Output for Last 24 Hours 09/20/21 09/21/21 09/22/21 23:59 23:59 23:59 Intake Total 350 / 350 1772 / 1772 1000 / 1000 Output Total 475 / 475 250 / 575 625 / 625 Balance -125 / -125 1522 / 1197 375 / 375 Lab / Micro Data Result Diagrams: 09/22/21 06:09 09/22/21 06:09 Labs: Laboratory Results - last 24 hr 09/21/21 16:16: POC Glucose 176 H 09/22/21 00:42: POC Glucose 158 H 09/22/21 06:09: WBC 11.2 H, RBC 4.51 L, Hgb 14.0, Hct 41.2, MCV 91.4, MCH 31.0, MCHC 34.0, RDW Std Deviation 49.3 H, RDW Coeff of Gavino 14.8 H, Plt Count 186, MPV 12.7 H, Immature Gran % (Auto) 0.900, Neut % (Auto) 87.3 H, Lymph % (Auto) 4.8 L, [place] % (Auto) 6.8, Eos % (Auto) 0.0, Baso % (Auto) 0.2, Absolute Neuts (auto) 9.8 H, Absolute Lymphs (auto) 0.54 L, Nucleated RBC % 0, Atypical Lymphocytes 1+ 09/22/21 06:09: Sodium 133 L, Potassium 4.1, Chloride 102, Carbon Dioxide 20.0 L, Anion Gap 11, BUN 72 H, Creatinine 2.67 H, Estim Creat Clear Calc 19.60, Est GFR (MDRD) Af Amer 30 L, Est GFR (MDRD) Non-Af 24 L, BUN/Creatinine Ratio 27.0 H, Glucose 101, Calcium 8.5, Total Bilirubin 0.70, AST 92 H, ALT 52, Alkaline Phosphatase 46, Total Protein 5.9 L, Albumin 1.9 L, Globulin 4.0, Albumin/Globulin Ratio 0.5 L 09/22/21 06:09: PT 22.5 H, INR 2.1 09/22/21 06:49: POC Glucose 100 09/22/21 09:42: POC Glucose 98 Micro: Microbiology 09/19/21 11:40 Blood Culture (Wb) - Anticubital Left Blood Culture - Preliminary No growth in 48 hours. 09/19/21 11:25 Blood Culture (Wb) - Arm Right Blood Culture - Preliminary No growth in 48 hours. 09/19/21 20:11 Mucosa - Nose Respiratory Panel (PCR) - Final 09/19/21 17:35 Urine, Clean Catch Legionella Antigen - Final 09/19/21 17:35 Urine, Clean Catch Streptococcus pneumoniae Antigen (M - Final 09/19/21 11:15 Mucosa - Nose Influenza Types A,B Direct FA (AMELIE) - Final 09/19/21 11:15 Nasal Secretion SARS-CoV-2 Antigen (Rapid) - Final SARS-CoV-2 (COVID 19) Physical Exam Const General Appearance: cooperative, lethargic, ill appearing Positive for acutely and on BiPAP HEENT normocephalic and head/scalp atraumatic Eyes PERRL and EOMs intact bilaterally Neck supple and No nodes Chest inspection of chest normal Chest: symmetrical chest wall rise; Negative for crepitus Resp Auscultation: diminished lung sounds; Negative for rales, rhonchi or wheezes Cardio regular rate, regular rhythm, S1 normal heart sound, S2 normal heart sound, no rub and no gallops GI normal to inspection, nondistended, normoactive bowel sounds Extremity no clubbing, cyanosis or edema Skin no rashes or lesions noted Neuro oriented x3 and CN's II-XII intact bilaterally Psych mental status grossly normal and thought process normal Charges/Coding Visit Charges Inpatient E&M: 42129 Subs Hosp L3
--- NOTE | 2021-09-22 13:59 | CON.PCM.RE_ITS ---
Assessment & Plan Assessment/Plan (1) FILIPE (acute kidney injury): PLAN: History of CKD stage IIIb with baseline creatinine around 1.6-2. History of cardiorenal syndrome. Sending renal function. Likely related to Covid pneumonia. Pressure is fairly soft with systolic in the 80s. No room for IV fluids due to worsening breathing situation. No room for diuretics either. Patient says he is voiding. No acute indications for dialysis today. Overall prognosis appears to be poor. Possible palliative measures. HPI Consult Data Date of Consult: 09/22/21 HPI Narrative HPI Narrative: SATISH MCLAUGHLIN, is a 81 M who presents to the hospital with complaints of shortness of breath. Nephrology consulted for acute renal failure. He is known to me from office. He has known history of CKD stage IIIb with baseline creatinine around 1.6. History of congestive heart failure with low ejection fraction. Renal failure was thought to be partly related to cardiorenal syndrome. Presented with shortness of breath and was diagnosed with Covid pneumonia. Currently on BiPAP. Somewhat lethargic. Patient tells me that he is voiding. His is with him today. Apparently she has tested positive as well but asymptomatic. [facility] Medical History Acute exacerbation of CHF (congestive heart failure) Atherosclerotic heart disease of [place] coronary artery without angina pectoris Atrial fibrillation Atrioventricular block 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 (~04/20/02) Chronic combined systolic and diastolic CHF (congestive heart failure) CKD (chronic kidney disease), stage III Coronary artery disease Gout Heart failure History of cardiac pacemaker (~07/14/01) History of DVT (deep vein thrombosis) History of myocardial infarction HLD (hyperlipidemia) Hypertension Hyponatremia Hypothyroidism Ischemic cardiomyopathy Lactic acidosis skilled nursing (current) use of anticoagulants Neuropathy Non-ST elevation (NSTEMI) myocardial infarction Obesity YUSUF (obstructive sleep apnea) Paroxysmal atrial fibrillation Paroxysmal ventricular tachycardia Premature ventricular contraction Presence of stent of bypass graft (~11/23/19) Supratherapeutic INR Type 2 diabetes mellitus Home Medications allopurinol 100 mg PO DAILY 11/27/19 [History Last Taken 09/19/21] clopidogrel 75 mg PO DAILY 11/27/19 [History Last Taken 09/19/21] pantoprazole 40 mg PO DAILY 11/27/19 [History Last Taken 09/19/21] omega-3 fatty acids-fish oil 2 each PO DAILY 01/07/21 [History Last Taken 09/18/21] sertraline 25 mg PO DAILY 01/07/21 [History Last Taken 09/18/21] torsemide 40 mg PO BID 01/07/21 [History Last Taken 09/19/21] pen needle, diabetic 32 gauge x 5/32 #100 ea 03/10/21 [Rx Last Taken Unknown] rosuvastatin 40 mg tablet 40 mg PO DAILY tab 03/10/21 [History Last Taken 09/19/21] cholecalciferol (vitamin D3) 25 mcg (1,000 unit) tablet 25 mcg PO DAILY 04/13/21 [History Last Taken 09/19/21] gabapentin 100 mg capsule 200 mg PO BID cap 04/13/21 [History Last Taken 09/19/21] insulin glargine 100 unit/mL (3 mL) subcutaneous pen 40 unit SUBCUT QAM ml 04/13/21 [History Last Taken 09/19/21] nitroglycerin 0.4 mg sublingual tablet 0.4 mg SUBLINGUAL Q5M PRN MDD 3 04/13/21 [History Last Taken Unknown] calcium citrate 200 mg (950 mg) tablet 600 mg PO DAILY tab 05/05/21 [History Last Taken 09/19/21] folic acid 1 mg tablet 2 mg PO DAILY #180 tab 05/08/21 [Rx Last Taken 09/18/21] warfarin 1 mg tablet 1 mg PO MOTUWETHFRSA #90 tab 08/10/21 [Rx Last Taken 09/18/21] Entresto 1 ea PO BID 08/26/21 [History Last Taken 09/19/21] fenofibrate micronized 200 mg PO DAILY 08/26/21 [History Last Taken 09/19/21] amiodarone 200 mg tablet 200 mg PO DAILY #90 tab 08/31/21 [Rx Last Taken 09/19/21] Januvia 50 mg PO DAILY 09/19/21 [History Last Taken 09/18/21] levothyroxine 137 mcg PO DAILY 09/19/21 [History Last Taken 09/19/21] spironolactone 25 mg PO DAILY 09/19/21 [History Last Taken 09/19/21] warfarin 2 mg PO LIAO 09/19/21 [History Last Taken 09/17/21] Allergy/AdvReac Type Severity Reaction Status Date / Time Iodine and Iodide Containing AdvReac Severe Diarrhea Verified 09/19/21 10:19 Produc metformin AdvReac Upset Verified 09/19/21 10:19 Stomach niacin AdvReac Other Verified 09/19/21 10:19 Family History Father Myocardial infarction Surgical History Aortocoronary bypass status (~06/18/96) History of cardiac radiofrequency ablation (~06/12/07) History of coronary artery stent placement History of implantable cardioverter-defibrillator (ICD) placement (~07/14/01) History of PTCA History of tonsillectomy Social History Smoking Status: Never smoker alcohol intake: never substance use type: does not use caffeine: Yes Type: coffee Number of servings: 2 ROS ROS Narrative Negative except history Physical Exam Narrative Somewhat drowsy no obvious distress no pallor no icterus no JVD s1s2 no murmurs lungs rales abdomen soft no organomegaly no edema no cyanosis Lab / Micro Data Result Diagrams: 09/22/21 06:09 09/22/21 06:09 Labs: Laboratory Results - last 24 hr 09/21/21 16:16: POC Glucose 176 H 09/22/21 00:42: POC Glucose 158 H 09/22/21 06:09: WBC 11.2 H, RBC 4.51 L, Hgb 14.0, Hct 41.2, MCV 91.4, MCH 31.0, MCHC 34.0, RDW Std Deviation 49.3 H, RDW Coeff of Gavino 14.8 H, Plt Count 186, MPV 12.7 H, Immature Gran % (Auto) 0.900, Neut % (Auto) 87.3 H, Lymph % (Auto) 4.8 L , [place] % (Auto) 6.8, Eos % (Auto) 0.0, Baso % (Auto) 0.2, Absolute Neuts (auto) 9.8 H, Absolute Lymphs (auto) 0.54 L, Nucleated RBC % 0, Atypical Lymphocytes 1+ 09/22/21 06:09: Sodium 133 L, Potassium 4.1, Chloride 102, Carbon Dioxide 20.0 L , Anion Gap 11, BUN 72 H, Creatinine 2.67 H, Estim Creat Clear Calc 19.60, Est GFR (MDRD) Af Amer 30 L, Est GFR (MDRD) Non-Af 24 L, BUN/Creatinine Ratio 27.0 H , Glucose 101, Calcium 8.5, Total Bilirubin 0.70, AST 92 H, ALT 52, Alkaline Phosphatase 46, Total Protein 5.9 L, Albumin 1.9 L, Globulin 4.0, Albumin/Globulin Ratio 0.5 L 09/22/21 06:09: PT 22.5 H, INR 2.1 09/22/21 06:49: POC Glucose 100 09/22/21 09:42: POC Glucose 98 Micro: Microbiology 09/19/21 11:40 Blood Culture (Wb) - Anticubital Left Blood Culture - Preliminary No growth in 48 hours. 09/19/21 11:25 Blood Culture (Wb) - Arm Right Blood Culture - Preliminary No growth in 48 hours.
--- NOTE | 2021-09-22 15:11 | CASEMGMT ---
Social Work Note STANISLAV received message from [employer] at [facility] stating the hospice care consultant will be at [facility] at 4:00pm to meet with pt's family and to get paper's signed. [place] states physician will need to complete physician to physician with Dr. Estrdaa and the number is [phone]. STANISLAV updated physician. Kayla Yoon CRYPTOLOGIC SUPPORT SPECIALIST, TOOL SETTER APPRENTICE
[2021-09-22 16:50] LABS: Bedside Glucose 181 mg/dL (70-110)
--- NOTE | 2021-09-22 19:29 | NURSING ---
Addendum entered by Bonifacio Huerta 09/22/21 19:34: oxygen when placed on venti mask 91% @ 12L Original Note: at 1915 spoke with pt, and 2 sons on taking pt off bipap and placing on Ventimask and also placing a magnet over pacer/defib. 1919 magnet placed over pts pacer/defib, magnet secured with tape. Bipap was removed and Venti-mask was placed on pt oxygen at 12L w/ humidity.
[2021-09-22] MEDS: Atropine Sulfate 1% 2 ml Bottle 4 DRP SL (19:44)
--- NOTE | 2021-09-22 19:44 | NURSING ---
Dr. Rodriguez called with update on pt.. after 25min. on venti mask at 12L.. pt O2 90%, heart rate 70. pt does not look in distress
[2021-09-22] MEDS: 0.9% Saline Lock 10 ML Syringe IV (19:55)
--- NOTE | 2021-09-22 19:56 | NURSING ---
per Dr. Rodriguez we are to discharge pt to In hospice, leave IVs in place, keep magnet in place.
--- NOTE | 2021-09-22 20:15 | NURSING ---
Report called to [facility]. Told them [facility] plans to arrive at [facility] in 30 minutes to transport Marcial to [facility].
--- NOTE | 2021-09-23 07:53 | PCM.DC.SUM ---
Providers Date of Admission: 09/19/21 Date of Discharge: 09/23/21 Primary Care Physician: Dr. Angel Lang MD Consultations 09/21/21 08:18 Consult: Infectious Disease Routine Consulting Provider: Yared Cheema Reason for Consult: COVID/Resp Failure EMERGENT Consult: No Notified: Yes Date Notified: 09/21/21 Time Notified: 08:25 Method of Notification: Text 09/21/21 10:26 Consult: Learning Specialist / Pulmonary Medicine Routine Consulting Provider: Pulmonary Medicine [facility] Reason for Consult: COVID, resp failure EMERGENT Consult: No Notified: Yes Date Notified: 09/21/21 Time Notified: 10:26 Method of Notification: Text 09/22/21 07:34 Consult: Nephrology Routine Consulting Provider: Vikas Kasper Reason for Consult: FILIPE on CKD EMERGENT Consult: No Notified: Yes Date Notified: 09/22/21 Time Notified: 11:56 Method of Notification: Page Reason For Visit: ACUTE RESPIRATORY FAILURE/COVID-19 PNEUMONIA Diagnosis Discharge Diagnosis (1) FILIPE (acute kidney injury): Status: Acute Code(s): N17.9 - Acute kidney failure, unspecified Medications at Discharge Home Medications allopurinol 100 mg PO DAILY 11/27/19 clopidogrel 75 mg PO DAILY 11/27/19 pantoprazole 40 mg PO DAILY 11/27/19 omega-3 fatty acids-fish oil 2 each PO DAILY 01/07/21 sertraline 25 mg PO DAILY 01/07/21 torsemide 40 mg PO BID 01/07/21 pen needle, diabetic 32 gauge x 5/32 #100 ea 03/10/21 rosuvastatin 40 mg tablet 40 mg PO DAILY tab 03/10/21 cholecalciferol (vitamin D3) 25 mcg (1,000 unit) tablet 25 mcg PO DAILY 04/13/21 gabapentin 100 mg capsule 200 mg PO BID cap 04/13/21 insulin glargine 100 unit/mL (3 mL) subcutaneous pen 40 unit SUBCUT QAM ml 04/13/21 nitroglycerin 0.4 mg sublingual tablet 0.4 mg SUBLINGUAL Q5M PRN MDD 3 04/13/21 calcium citrate 200 mg (950 mg) tablet 600 mg PO DAILY tab 05/05/21 folic acid 1 mg tablet 2 mg PO DAILY #180 tab 05/08/21 warfarin 1 mg tablet 1 mg PO MOTUWETHFRSA #90 tab 08/10/21 Entresto 1 ea PO BID 08/26/21 fenofibrate micronized 200 mg PO DAILY 08/26/21 amiodarone 200 mg tablet 200 mg PO DAILY #90 tab 08/31/21 Januvia 50 mg PO DAILY 09/19/21 levothyroxine 137 mcg PO DAILY 09/19/21 spironolactone 25 mg PO DAILY 09/19/21 warfarin 2 mg PO LIAO 09/19/21 Hospital Course Operations None Procedures None Summary of Care Provided Minutes Spent on Discharge: 45 Hospital Course: 81-year-old male with multiple comorbidities significantly with history of CAD status post CABG, status post biventricular AICD, status post pacemaker, chronic lung disease but not on oxygen at home who comes in with progressive shortness of breath ongoing for about 1 week. Patient is vaccinated. He however tested positive for acute COVID-19 infection. His admitting x-rays had infiltrates. In the emergency room, he was satting 88% on room air and 94% on 3 L of oxygen. Patient was admitted to the [facility] floor and managed on Decadron and remdesivir. He had episodes of hypotension requiring fluid boluses. Patient developed acute kidney injury. He had worsening oxygen demand, resulting in the use of AFO and later on BiPAP. He became BiPAP dependent. He was seen by infectious disease, pulmonology and nephrology. He was managed on Decadron and Remdesivir was stopped when he developed acute kidney injury. Discussed with the , agreeable to hospice. Patient was discharged to inpatient hospice facility Physical Exam Narrative Physical exam: General: Alert, Oriented x3, appeared frail, cooperative, on BiPAP HEENT: Atraumatic Oral: Moist Mucosa Neck: Supple Lungs: Diminished to auscultation Cardiovascular: HS I+II, regular, no murmurs Abdomen: Bowel Sounds Present, Soft, Non Tender Extremities: No edema Weight / BMI Weight Weight: 91.6 kg Body Mass Index (BMI) 30.2 ABG / Lab / Microbiology Data Result Diagrams: 09/22/21 06:09 09/22/21 06:09 Laboratory: Laboratory Results - last 24 hr 09/22/21 09:42: POC Glucose 98 09/22/21 16:39: POC Glucose 181 H Microbiology: Microbiology 09/19/21 11:40 Blood Culture (Wb) - Anticubital Left Blood Culture - Preliminary No growth in 48 hours. 09/19/21 11:25 Blood Culture (Wb) - Arm Right Blood Culture - Preliminary No growth in 48 hours. 09/19/21 20:11 Mucosa - Nose Respiratory Panel (PCR) - Final 09/19/21 17:35 Urine, Clean Catch Legionella Antigen - Final 09/19/21 17:35 Urine, Clean Catch Streptococcus pneumoniae Antigen (M - Final 09/19/21 11:15 Mucosa - Nose Influenza Types A,B Direct FA (AMELIE) - Final 09/19/21 11:15 Nasal Secretion SARS-CoV-2 Antigen (Rapid) - Final SARS-CoV-2 (COVID 19) D/C Instructions Discharge Diet: No restrictions Meaningful Use Info Meaningful Use Diagnoses (Choose all that apply): None applicable Discharge Plan Admission Admit Date/Time: 09/19/21 13:10 Primary Reason for Your Visit: Acute hypoxic respiratory failure/Acute COVID-19 pneumonia Attending Provider: Evelyn Rodriguez Primary Care Provider: Angel Lang Consulting Providers: Yared Cheema ; Phillip Diaz ; Cesar Fisher ; Becka Mcdowell NP ; Vikas Kasper Discharge Orders/Prescriptions Prescriptions: No Action rosuvastatin 40 mg tablet 40 mg PO DAILY RF: 0 (DME) pen needle, diabetic [BD Ultra-Fine Lauren Pen Needle] 32 gauge x 5/32 needle See Rx Instructions .ROUTE .MEDSUPPLY Qty: 100 RF: 6 gabapentin 100 mg capsule 200 mg PO BID RF: 0 cholecalciferol (vitamin D3) 25 mcg (1,000 unit) tablet 25 mcg PO DAILY RF: 0 Lantus Solostar U-100 Insulin 100 unit/mL (3 mL) insulin pen 40 unit subcut QAM RF: 0 clopidogrel 75 MG tablet 75 mg PO DAILY RF: 0 allopurinol 100 MG tablet 100 mg PO DAILY RF: 0 pantoprazole 40 MG tablet 40 mg PO DAILY RF: 0 nitroglycerin 0.4 mg tablet, sublingual 0.4 mg sublingual Q5M MDD 3 PRN (Reason: angina) RF: 0 torsemide 20 MG tablet 40 mg PO BID RF: 0 sertraline 25 MG tablet 25 mg PO DAILY RF: 0 omega-3 fatty acids-fish oil 1 EACH capsule 2 each PO DAILY RF: 0 calcium citrate 200 mg (950 mg) tablet 600 mg PO DAILY RF: 0 fenofibrate micronized 200 mg capsule 200 mg PO DAILY RF: 0 Entresto 49-51 mg tablet 1 ea PO BID RF: 0 levothyroxine 137 mcg tablet 137 mcg PO DAILY RF: 0 spironolactone 25 mg tablet 25 mg PO DAILY RF: 0 warfarin 2 mg tablet 2 mg PO LIAO RF: 0 Januvia 50 mg tablet 50 mg PO DAILY RF: 0 folic acid 1 mg tablet 2 mg PO DAILY Qty: 180 RF: 3 warfarin 1 mg tablet 1 mg PO MOTUWETHFRSA Qty: 90 RF: 3 amiodarone 200 mg tablet 200 mg PO DAILY Qty: 90 RF: 3 Referrals / Follow Up: Angel Lang MD [Primary Care Provider] - Disposition Disposition (needs filled in before D/C Order can be placed): Hospice in Medical Facility Charges/Coding Visit Charges Inpatient E&M: 21329 Disch Hosp
== END 2021-09-22 21:32 | disposition hospice, inpatient (51) | DRG 177 ==
LOC: ED 13:14 → MS3 13:29
PROVIDERS: Admitting Provider Internal Medicine; Emergency Provider Emergency Medicine; PCP Family Medicine; Visit Provider Internal Medicine
DX: U07.1 COVID-19 (principal); J12.82 Pneumonia due to coronavirus disease 2019; J96.01 Acute respiratory failure with hypoxia; I13.0 Hypertensive heart and chronic kidney disease with heart failure and stage 1 through stage 4 chronic kidney disease, or unspecified chronic kidney disease; N17.9 Acute kidney failure, unspecified; I50.22 Chronic systolic (congestive) heart failure; E03.9 Hypothyroidism, unspecified; I95.9 Hypotension, unspecified; E11.22 Type 2 diabetes mellitus with diabetic chronic kidney disease; E11.65 Type 2 diabetes mellitus with hyperglycemia; E66.9 Obesity, unspecified; E78.5 Hyperlipidemia, unspecified; E87.6 Hypokalemia; G47.33 Obstructive sleep apnea (adult) (pediatric); I25.10 Atherosclerotic heart disease of native coronary artery without angina pectoris; I25.2 Old myocardial infarction; E11.42 Type 2 diabetes mellitus with diabetic polyneuropathy; I25.5 Ischemic cardiomyopathy; I48.0 Paroxysmal atrial fibrillation; M10.9 Gout, unspecified; N18.32 Chronic kidney disease, stage 3b; Z86.718 Personal history of other venous thrombosis and embolism; Z95.810 Presence of automatic (implantable) cardiac defibrillator; Z79.4 Long term (current) use of insulin; Z79.01 Long term (current) use of anticoagulants; Z79.899 Other long term (current) drug therapy; Z68.31 Body mass index [BMI] 31.0-31.9, adult
CPT/HCPCS: 36415; 71045; 74176; 80048; 80053; 81001; 82962; 83735; 83880; 84100; 84484; 85025; 85379; 85610; 87040; 87426; 87449; 87633; 87804; 93005; 94002; 94660; 94762; 97110; 97162; 97166; 97530; 97535; 97802; 99251; 99285; J7030; J7040; J7050; A4216; G0463; J2405